=== PATIENT | male | born 1965 | race Caucasian/White ===

== ENCOUNTER 2016-08-23 11:16 | Inpatient (IN) | payer MEDICARE, MEDICAID ==
[2016-08-23] MEDS ORDERED: Charcoal ACTIVATED* 25 GM/120 ML BTL PO ONE (11:49)
--- NOTE | 2016-08-23 11:57 | ED ---
Ángel John Michael, scribed for Ximena Matos MD on 08/23/16 at 1147 . Psychiatric Complaint - HPI Summary HPI Summary: 50 y/o male comes to the ED by EMS after calling 911 stating that he took an overdose this morning. The pt reports to taking 7-8 pills of 80 mg Geodon all at one time [employer]> morning. The pt states he was trying to commit suicide, and he has a hx of suicide attempts by overdose. The pt denies hallucinations or delusions today. He also has a hx of self harm by burning and scratching. Pt initially states took pills at 1pm. After reminding pt was not 1pm yet, he stated "it must have been 11am" Expressed to pt was likely in the ambulance at 11am - pt states "well then I don't know when I took it." Pt denies cp, sob, abd pain. Denies nausea, vomiting. The pt was recently hospitalized at [facility] of 2 days on 08/14/16 for SI attempt. He denies smoking, drinking, or use of drugs. The PMHx is significant for schizophrenia, depression, and thyroid disease. - History Of Current Complaint Time Seen by Provider: 08/23/16 11:23 Hx Obtained From: Patient, Medical Records Onset/Duration: Gradual Onset Timing: Intermittent Episode Lasting Severity Initially: Severe Severity Currently: Moderate Character: Depressed Aggravating Factor(s): Nothing Alleviating Factor(s): Nothing Associated Signs And Symptoms: Positive: Negative - delusions. Negative: Hallucinating Related History: Positive For: Prior Psychiatric Issues Has Suicidal: Reports: Thoughts, With A Plan, Has Prior Attempt(s) - Allergies/Home Medications Allergies/Adverse Reactions: Allergies Allergy/AdvReac Type Severity Reaction Status Date / Time No Known Allergies Allergy Verified 07/22/16 17:04 PMH/Surg Hx/FS Hx/Imm Hx Endocrine/Hematology History: Reports: Hx Thyroid Disease - hypothyroid Denies: Hx Anticoagulant Therapy, Hx Diabetes, Hx Systemic Lupus Erythematosus Cardiovascular History: Reports: Hx Hypercholesterolemia, Other Cardiovascular Problems/Disorders - HYPERLIPIDEMIA Denies: Hx Congestive Heart Failure, Hx Hypertension, Hx Pacemaker/ICD Respiratory History: Reports: Hx Chronic Bronchitis Comment Only: Other Respiratory Problems/Disorders - Sarcoidosis GI History: Reports: Hx Gastroesophageal Reflux Disease, Hx Irritable Bowel, Hx Obstructive Bowel - Small bowel, Other GI Disorders - Ongoing abdominal discomfort, hyperlipidemia History: Reports: Hx Benign Prostatic Hyperplasia, Hx Kidney Stones, Hx Renal Disease - LEFT KIDNEY DECREASE IN FUNCTION, Other Problems/Disorders - HX OF CYST IN THE BLADDER Denies: Hx Dialysis Musculoskeletal History: Reports: Other Musculoskeletal History - Sarcoidosis Denies: Hx Rheumatoid Arthritis Sensory History: Reports: Hx Contacts or Glasses Denies: Hx Hearing Aid, Hx Hearing Problem Opthamlomology History: Reports: Hx Contacts or Glasses Neurological History: Reports: Hx Headaches, Hx Seizures, Other Neuro Impairments/Disorders - "light concussion" Psychiatric History: Reports: Hx Anxiety, Hx Depression, Hx Post Traumatic Stress Disorder, Hx Inpatient Treatment, Hx Community Mental Health Tx, Hx Schizophrenia, Hx Suicide Attempt, Hx of Violent Episodes Against Others, Hx Substance Abuse, Other Psychiatric Issues/Disorders Denies: Hx Eating Disorder, Hx Panic Disorder - Cancer History Hx Chemotherapy: No - Surgical History Surgery Procedure, Year, and Place: 2008 APPENDECTOMY, [facility] CYST REMOVED FROM BLADDER, [facility] CHOLECYSTECTOMY-12/2012 Hx Anesthesia Reactions: No - Immunization History Date of Tetanus Vaccine: Unknown Date of Influenza Vaccine: Fall 2013 Infectious Disease History: Denies: Hx Clostridium Difficile, Hx Hepatitis, Hx Human Immunodeficiency Virus (HIV), Hx of Known/Suspected MRSA, History Other Infectious Disease - Family History Known Family History: Positive: Cardiac Disease, Hypertension, Seizure Disorder - sister, Other - cancer - Social History Occupation: Disabled Lives: Alone Alcohol Use: None Alcohol Amount: stopped 4 years ago Hx Substance Use: No Substance Use Type: Reports: None Substance Use Comment - Amount & Last Used: pt states he has not used any drugs since 2011. Hx Tobacco Use: Yes Smoking Status (MU): Former Smoker Type: Cigarettes Length of Time of Smoking/Using Tobacco: 20YRS Have You Smoked in the Last Year: No Review of Systems Negative: Fever Eyes: Negative ENT: Negative Cardiovascular: Negative Negative: Chest Pain Respiratory: Negative Negative: Shortness Of Breath Gastrointestinal: Negative Negative: Abdominal Pain, Vomiting, Nausea Genitourinary: Negative Skin: Negative Neurological: Negative Negative: Weakness, Numbness Positive: Other - SI. negative delusions and hallucinations All Other Systems Reviewed And Are Negative: Yes Physical Exam Triage Information Reviewed: Yes Vital Signs On Initial Exam: Initial Vitals Temp Pulse Resp BP Pulse Ox 99.3 F 71 16 107/69 98 08/23/16 11:20 08/23/16 11:20 08/23/16 11:20 08/23/16 11:20 08/23/16 11:20 Vital Signs Reviewed: Yes Appearance: Positive: Well-Appearing, No Pain Distress, Well-Nourished Skin: Positive: Warm, Skin Color Reflects Adequate Perfusion, Dry Head/Face: Positive: Normal Head/Face Inspection Eyes: Positive: Normal ENT: Positive: Hearing grossly normal Neck: Positive: Supple, Nontender, No Lymphadenopathy Respiratory/Lung Sounds: Positive: Clear to Auscultation, Breath Sounds Present Cardiovascular: Positive: Normal, RRR. Negative: Murmur, Rub Abdomen Description: Positive: Nontender, No Organomegaly, Soft Bowel Sounds: Positive: Present Musculoskeletal: Positive: Normal Neurological: Positive: Normal, Sensory/Motor Intact, Alert, Oriented to Person Place, Time. Negative: Abnormal Gait, Slurred Speech Psychiatric: Positive: Normal AVPU Assessment: Alert - Luis Coma Scale Best Eye Response: 4 - Spontaneous Best Motor Response: 6 - Obeys Commands Best Verbal Response: 5 - Oriented Diagnostics - Vital Signs Vital Signs Temp Pulse Resp BP Pulse Ox 08/23/16 11:20 99.3 F 71 16 107/69 98 - Laboratory Result Diagrams: 08/23/16 12:15 08/23/16 12:15 Lab Statement: Any lab studies that have been ordered have been reviewed, and results considered in the medical decision making process. - EKG EK EKG Rhythm: Sinus Rhythm - 71 bpm EKG Interpretation: QTc 424. QRSD 91. no acute changes EKG EKG Rhythm: Sinus Rhythm - 71 bpm EKG Interpretation: QTc 424. QRSD 91. no acute changes Course/Dx - Differential Dx/Clinical Impression Provider Diagnosis: Depression, Ingestion of substance - Physician Notifications Discussed Care Of Patient With: PCC - recommend monitoring for nausea, somnulance; 6 hour monitor; charcoal 1g/kg. 12:30 - okay for mental health eval in ED Time Discussed With Above Provider: 11:40 Discharge - Discharge Plan Condition: Stable Disposition: OTHER Discharge Disposition Comment: signed out - MH consult pending 1500 The documentation as recorded by the Ángel farah Michael accurately reflects the service I personally performed and the decisions made by me, Ximena Matos MD.
[2016-08-23 12:18] LABS: Urine Bilirubin Negative (Negative); Urine Glucose Negative (Negative); Urine Nitrite Negative (Negative)
[2016-08-23 12:25] LABS: Hematocrit 43 % (42-52); Hemoglobin 14.5 g/dl (14.0-18.0); Mean Corpuscular HGB Conc 34 g/dl (31-36); Mean Corpuscular Hemoglobin 32 pg (27-31); Mean Corpuscular Volume 93 fL (80-94); Mean Platelet Volume 8 um3 (7.4-10.4); Red Blood Count 4.59 10^6/ul (4.0-5.4); Red Cell Distribution Width 13 % (10.5-15); White Blood Count 6.7 10^3/ul (3.5-10.8)
[2016-08-23 12:40] LABS: ALT 23 U/L (7-52); AST 17 U/L (13-39); Albumin 3.8 g/dL (3.2-5.2); Alkaline Phosphatase 55 U/L (34-104); Anion Gap -3 mmol/L (2-11); BUN/Creatinine Ratio 19.5 (8-20); Blood Urea Nitrogen 22 mg/dL (6-24); CO2 Carbon Dioxide 23 mmol/L (22-32); Calcium 9.4 mg/dL (8.6-10.3); Chloride 110 mmol/L (101-111); EGFR African American 87.6 (>60); EGFR Non-African American 68.1 (>60); Globulin 2.3 g/dL (2-4); Glucose 113 mg/dL (70-100); Sodium 130 mmol/L (133-145); Total Protein 6.1 g/dL (6.4-8.9)
[2016-08-23 12:44] LABS: Benzodiazepine Urine Screen None Detected (None Detect)
[2016-08-23 12:58] LABS: Acetaminophen < 15 mcg/mL; Alcohol < 10 mg/dL (<10); Salicylate < 2.50 mg/dL (<30)
[2016-08-23 13:06] LABS: TSH (Thyroid Stimulating Horm) 1.33 mcIU/mL (0.34-5.60)
[2016-08-23] MEDS ORDERED: Al Hydrox/Mg Hydrox/Simet LIQ* 30 ML UDC PO ONE (19:30)
[2016-08-23] MEDS ORDERED: Promethazine TAB* 25 MG PO PRN (21:55)
[2016-08-23] MEDS ORDERED: Zolpidem TAB* 5 MG PO ONE (21:59)
[2016-08-23] MEDS ORDERED: Topiramate TAB(*) 100 MG PO ONE (21:59)
[2016-08-23] MEDS ORDERED: cloNIDine TAB* 0.1 MG PO ONE (21:59)
[2016-08-23] MEDS ORDERED: Amitriptyline TAB* 10 MG PO ONE (21:59)
[2016-08-23] MEDS ORDERED: Ondansetron TAB* 4 MG PO PRN (22:10)
[2016-08-23] MEDS: Amitriptyline TAB* 10 MG PO SCH (22:22)
[2016-08-23] MEDS: cloNIDine TAB* 0.1 MG PO SCH (22:24)
--- NOTE | 2016-08-23 23:45 | ED ---
Edda John Claudia, scribed for Antolin Duhnam MD on 08/23/16 at 2345 . Progress - Progress Note Progress Note: Signed out at [address] Ximena Matos Pt continued to be stable the pt is still medically cleared. The pt is still awaiting MHE. The pt will be signed-out to Dr. Frederick at 24:00. - Consult/PCP Time Called: 19:20 Course/Dx - Diagnoses Provider Diagnoses: Depression, Ingestion of substance - Provider Notifications Discussed Care Of Patient With: PCC - recommend monitoring for nausea, somnulance; 6 hour monitor; charcoal 1g/kg. 12:30 - okay for mental health eval in ED Time Discussed With Above Provider: 11:40 The documentation as recorded by the Edda farah Claudia accurately reflects the service I personally performed and the decisions made by Roly bishop Walter, MD.
[2016-08-24] MEDS ORDERED: Acetaminophen TAB* 325 MG ONE (05:49)
[2016-08-24] MEDS: Levothyroxine TAB* 50 MCG TAB PO SCH (06:00)
[2016-08-24] MEDS: Cetirizine* 10 MG TAB PO SCH (07:14)
[2016-08-24] MEDS: Omeprazole CAP* 20 MG PO SCH ×2 (07:14→21:00)
[2016-08-24] MEDS: Tamsulosin CAP* 0.4 MG PO SCH (07:15)
[2016-08-24] MEDS: DULoxetine DR CAP* 30 MG CAP.DR PO SCH (07:15)
[2016-08-24] MEDS ORDERED: Al Hydrox/Mg Hydrox/Simet LIQ* 30 ML UDC PO ONE ×2 (09:19→12:16)
[2016-08-24] MEDS ORDERED: Al Hydrox/Mg Hydrox/Simet LIQ* 30 ML UDC ONE (09:22)
[2016-08-24] MEDS: Azelastine 0.15% NASAL(NF) 30 ML BTL BOTH NARES SCH ×2 (11:30→21:05)
[2016-08-24] MEDS: clonazePAM TAB(*) 0.5 MG PO PRN (13:46)
[2016-08-24] MEDS: Polyethylene Glycol 3350* 17 GM PACKET PO PRN (15:25)
--- NOTE | 2016-08-24 15:56 | PN ---
ED Flex Patient Progress Note Subjective: This is a 50 year-old male who is pending transfer to another psychiatric facility. Pt offers no complaints at this time and is resting comfortably watching a movie. Objective: Vitals: Most recent vital signs documented below. General NAD, Alert and oriented x3. Heart: rrr Lungs: CTA without rales, rhonchi, wheezing Laboratory: Current laboratory results documented below. Assessment: Stable awaiting transfer Plan: Pending psychiatric transfer. Vital Signs Temp Pulse Resp BP Pulse Ox 96.3 F 93 16 115/70 98 08/24/16 15:49 08/24/16 15:49 08/24/16 15:49 08/24/16 15:49 08/24/16 15:49 Lab Results - Entire Visit 08/23/16 08/23/16 08/23/16 12:15 12:15 12:00 WBC 6.7 RBC 4.59 Hgb 14.5 Hct 43 MCV 93 MCH 32 H MCHC 34 RDW 13 Plt Count 219 MPV 8 Neut % (Auto) 75.8 Lymph % (Auto) 14.0 L Bee % (Auto) 7.4 Eos % (Auto) 1.8 Baso % (Auto) 1.0 Absolute Neuts (auto) 5.1 Absolute Lymphs (auto) 0.9 L Absolute Monos (auto) 0.5 Absolute Eos (auto) 0.1 Absolute Basos (auto) 0.1 Absolute Nucleated RBC 0.01 Nucleated RBC % 0.1 Sodium 130 L Potassium 4.0 Chloride 110 Carbon Dioxide 23 Anion Gap -3 L BUN 22 Creatinine 1.13 Est GFR ( Amer) 87.6 Est GFR (Non-Af Amer) 68.1 BUN/Creatinine Ratio 19.5 Glucose 113 H Calcium 9.4 Total Bilirubin 0.40 AST 17 ALT 23 Alkaline Phosphatase 55 Total Protein 6.1 L Albumin 3.8 Globulin 2.3 Albumin/Globulin Ratio 1.7 TSH 1.33 Urine Color Urine Appearance Urine pH Ur Specific [place] Urine Protein Urine Ketones Urine Blood Urine Nitrate Urine Bilirubin Urine Urobilinogen Ur Leukocyte Esterase Urine Glucose Urine Ascorbic Acid Salicylates < 2.50 Urine Opiates Screen None detected Acetaminophen < 15 Ur Barbiturates Screen None detected Ur Phencyclidine Scrn None detected Ur Amphetamines Screen None detected U Benzodiazepines Scrn None detected Urine Cocaine Screen None detected U Cannabinoids Screen None detected Serum Alcohol < 10 08/23/16 12:00 WBC RBC Hgb Hct MCV MCH MCHC RDW Plt Count MPV Neut % (Auto) Lymph % (Auto) Bee % (Auto) Eos % (Auto) Baso % (Auto) Absolute Neuts (auto) Absolute Lymphs (auto) Absolute Monos (auto) Absolute Eos (auto) Absolute Basos (auto) Absolute Nucleated RBC Nucleated RBC % Sodium Potassium Chloride Carbon Dioxide Anion Gap BUN Creatinine Est GFR ( Amer) Est GFR (Non-Af Amer) BUN/Creatinine Ratio Glucose Calcium Total Bilirubin AST ALT Alkaline Phosphatase Total Protein Albumin Globulin Albumin/Globulin Ratio TSH Urine Color Yellow Urine Appearance Cloudy Urine pH 7.0 Ur Specific [place] 1.016 Urine Protein Negative Urine Ketones Negative Urine Blood Negative Urine Nitrate Negative Urine Bilirubin Negative Urine Urobilinogen Negative Ur Leukocyte Esterase Negative Urine Glucose Negative Urine Ascorbic Acid * H Salicylates Urine Opiates Screen Acetaminophen Ur Barbiturates Screen Ur Phencyclidine Scrn Ur Amphetamines Screen U Benzodiazepines Scrn Urine Cocaine Screen U Cannabinoids Screen Serum Alcohol
[2016-08-24] MEDS: Ziprasidone CAP* 80 MG PO SCH (20:59)
[2016-08-24] MEDS: Zolpidem TAB* 5 MG PO SCH (21:00)
[2016-08-24] MEDS: Amitriptyline TAB* 10 MG PO SCH (21:00)
[2016-08-24] MEDS: cloNIDine TAB* 0.1 MG PO SCH (21:00)
[2016-08-24] MEDS: Topiramate TAB(*) 100 MG PO SCH (21:02)
[2016-08-25] MEDS: Polyethylene Glycol 3350* 17 GM PACKET PO PRN (12:43)
[2016-08-25] MEDS: Ziprasidone CAP* 80 MG PO SCH (20:57)
[2016-08-25] MEDS: Omeprazole CAP* 20 MG PO SCH (20:58)
[2016-08-25] MEDS: Azelastine 0.15% NASAL(NF) 30 ML BTL BOTH NARES SCH (20:58)
[2016-08-25] MEDS: cloNIDine TAB* 0.1 MG PO SCH (20:58)
[2016-08-25] MEDS: Zolpidem TAB* 5 MG PO SCH (20:59)
[2016-08-25] MEDS: Topiramate TAB(*) 100 MG PO SCH (20:59)
[2016-08-25] MEDS ORDERED: Ziprasidone CAP* 80 MG ONE (21:00)
[2016-08-26] MEDS: Amitriptyline TAB* 10 MG PO SCH ×2 (01:00→20:38)
[2016-08-26] MEDS: Cetirizine* 10 MG TAB PO SCH ×2 (07:39→08:19)
[2016-08-26] MEDS: Tamsulosin CAP* 0.4 MG PO SCH ×2 (07:39→08:19)
[2016-08-26] MEDS: DULoxetine DR CAP* 30 MG CAP.DR PO SCH ×2 (07:39→08:19)
[2016-08-26] MEDS: Omeprazole CAP* 20 MG PO SCH ×3 (07:39→20:38)
[2016-08-26] MEDS: Azelastine 0.15% NASAL(NF) 30 ML BTL BOTH NARES SCH ×3 (07:39→20:51)
[2016-08-26] MEDS: Levothyroxine TAB* 50 MCG TAB PO SCH ×2 (07:39→11:28)
[2016-08-26] MEDS: Al Hydrox/Mg Hydrox/Simet LIQ* 30 ML UDC PO PRN ×2 (09:06→23:46)
[2016-08-26] MEDS: clonazePAM TAB(*) 0.5 MG PO PRN (09:19)
--- NOTE | 2016-08-26 10:30 | HP ---
HISTORY AND PHYSICAL: DATE OF ADMISSION: 08/25/16 IDENTIFYING DATA: Krzysztof Banegas is a 50-year-old mentally disabled, domiciled, unemployed male with a history of many psychiatric hospitalizations, trauma, personality disorder features, suicide attempts, self harm, posttraumatic stress disorder, atypical psychotic spectrum symptoms, and depression. He is admitted to psychiatric unit about 10 days after his last hospitalization having come to the hospital emergency room by ambulance with report of an overdose of suicidal features. HISTORY OF PRESENT ILLNESS: This is an update to the history and physical entered for Lyle's August 12 admission to our unit. Please see that report by Dr. Ndiaye for information on Krzysztof's more distant history. Krzysztof had 3-day stay in our hospital right before the New Year having presented with suicidal thoughts due to stomach pain. He reports doing okay until the last few days. He notes recent stressor of having been moved into the [employer] [facility] and no longer having access to his therapist, Krzysztof Mina. He said he had 2 or 3 days of rumination, increased flashbacks, increased nightmares, higher anxiety, and worse mood. He said he had suicidal thoughts and wishes and "for about a day" plan to overdose on his Geodon. He reported taking 6 or 7 extra tablets and said that he promptly called his mother and informed her what he was doing and also called 911 requesting help. He said he regretted the attempt and did not have ongoing lingering wishes. He does feel ambivalent about his life and being alive. He was hopeful to spend a couple of days in the hospital to recuperate. He denied other perceptual disturbances. Denied violent ideations. Denied use of alcohol or drugs and denied new medical diagnosis. He reported adherence with his medication regimen. MENTAL STATUS EXAMINATION: Somewhat disheveled later middle-aged male who is wearing hospital scrub clothing. He has slightly slow psychomotor activity. He is somewhat regressed in his relatedness, maintains distant eye contact. Speech is stressed and nonspontaneous. Mood is described as "okay." Affect is blandly euthymic, it is stable. Thought process is coherent, but impoverished thought content. Negative for current suicidal, homicidal or paranoid ideation. Sensorium is clear. He is alert and oriented x3. Insight and judgment is fair and impulse control is currently intact. UPDATED PHYSICAL ASSESSMENT: Vital Signs: Temperature is 97.5, blood pressure is 95/65, pulse is 65, respiratory rate is 16. ADMISSION LABORATORY STUDIES: CBC had MCH of 32, 14% lymphocytes, 0.9 monocytes. Comprehensive panel had a sodium of 130, negative 3 anion gap, glucose of 113, total protein is 6.1. Urinalysis had high ascorbic acid. Toxicology screen is negative for Tylenol, alcohol, or salicylates. Urine drug screen was negative. UPDATED REVIEW OF SYSTEMS: Negative for neurological symptoms, respiratory difficulty, chest pain, syncope. Reports heartburn. Denies other gastrointestinal distress or elimination symptoms, negative for any musculoskeletal problems or skin problems. PHYSICAL EXAMINATION: Krzysztof preferred not to have any examination. He is medically stable for psychiatric hospitalization. CLINICAL SUMMARY: A 50-year-old mentally disabled male with posttraumatic stress disorder, frequent symptom exacerbations, history of suicide attempts, personality disorder, self-harm, perceptual disturbances, and tenuous baseline functioning. He presents typically with overdose with suicidal features (of low medical and psychological seriousness) in the setting of a subacute pattern of hospitalizations and decompensations. He requires psychiatric hospitalization for immediate safety, stabilization, evaluation and treatment planning. ADMISSION DIAGNOSES: Adjustment disorder, posttraumatic stress disorder, depressive disorder, personalty disorder. TREATMENT PLAN: Admit to the psychiatric unit on a long-term basis. Code status is full. Safety checks every 15-minute intervals. Initiate comprehensive group, milieu, and individual psychotherapeutic support. Medication management: we will allow continuing the outpatient medications which will be: 1. Amitriptyline 20 mg at bedtime. 2. Azelastine 0.15% one spray to both nares b.i.d. 3. Cetirizine 10 mg a day. 4. Duloxetine 90 mg daily. 5. Synthroid 50 mcg daily. 6. Omeprazole 20 mg b.i.d. 7. Zofran 4 mg p.o. q. 6h p.r.n. nausea. 8. Polyethylene glycol 17 g daily p.r.n. constipation. 9. Promethazine 25 mg q. 2-8h. p.r.n. nausea. 10. Flomax 0.4 mg a day. 11. Topamax 100 mg at bedtime. 12. Ziprasidone 160 mg at bedtime. 13. Ambien 5 mg at bedtime. 14. Clonidine 0.3 mg at bedtime. 15. Clonazepam 0.5 mg b.i.d. p.r.n. anxiety. Estimated length of stay is three days. Discharge planning will involve coordination with appropriate aftercare. Target symptoms are parasuicidal behaviors, suicidal thoughts, elevated distress, and re-experiencing of higher trauma. The patient's strengths were his positive help-seeking behavior and longer term treatment alliances. [id number]/[facility] #: [id number] REBEKA
--- NOTE | 2016-08-26 13:47 | PN ---
MHU: Group Therapy Note - Service Type Service Type: 41030 Group Psychotherapy - Cognitive Behavioral Group Therapy ( CBT):Patient attended CBT programming this morning and presented with flat affect that did not vary with discussion. Although responsive to direct prompts to respond to questions, patient did not engage in spontaneous conversation.
[2016-08-26] MEDS: Topiramate TAB(*) 100 MG PO SCH (20:38)
[2016-08-26] MEDS: Ziprasidone CAP* 80 MG PO SCH (20:38)
[2016-08-26] MEDS: Zolpidem TAB* 5 MG PO SCH (20:38)
[2016-08-26] MEDS: cloNIDine TAB* 0.1 MG PO SCH (20:38)
[2016-08-27] MEDS: Al Hydrox/Mg Hydrox/Simet LIQ* 30 ML UDC PO PRN ×5 (02:56→22:02)
[2016-08-27] MEDS: Levothyroxine TAB* 50 MCG TAB PO SCH (06:14)
[2016-08-27 07:44] VITALS: BP 104/66
[2016-08-27] MEDS: Azelastine 0.15% NASAL(NF) 30 ML BTL BOTH NARES SCH ×2 (08:19→20:16)
[2016-08-27] MEDS: Tamsulosin CAP* 0.4 MG PO SCH (08:20)
[2016-08-27] MEDS: DULoxetine DR CAP* 30 MG CAP.DR PO SCH (08:20)
[2016-08-27] MEDS: Cetirizine* 10 MG TAB PO SCH (08:20)
[2016-08-27] MEDS: Omeprazole CAP* 20 MG PO SCH ×2 (08:20→20:15)
--- NOTE | 2016-08-27 10:54 | PN ---
Subjective - Subjective Service Type: 01202 Hosp care 15 min low complexity Subjective: Sonia reported feeling a little better, but noted fatigue and poor sleep quality. Said he does not feel recovered, and while safe currently, not ready to go home today. Objective - Appearance Appearance: Well Developed/Nourished Hygiene: Normal Grooming: Disheveled - Behavior Psychomotor Activities: Abnormal-Decreased - Attitude and Relatedness Attitude and Relatedness: Needy Eye Contact: Good - Speech Quality: Unpressured Latencies: Normal Quantity: Terse - Mood Patient's Decription of Mood: "Anxious" - Affect Observed Affect: Tense Affect Consistent with: Dysphoria - Thought Process Patient's Thought Process: Impoverished Thought Content: No Passive Wish, No Suicidal Planning, No Homicidal Ideation, No Paranoid Ideation - Sensorium Experiencing Hallucinations: No, Sensorium is Clear - Level of Consciousness Level of Consciousness: Alert - Impulse Control Impulse Control: Intact - Insight and Judgement Insight and Judgement: Poor Assessment - Assessment Merits Inpatient Hospitalization: For Stabilization, To Initiate Treatment, For Ongoing Evaluation, Consolidate Improvements, For Discharge Planning Inpatient DSM-IV Dx: Adjustment disorder, posttraumatic stress disorder, depressive disorder, personalty disorder. Clinical Impression: A 50-year-old mentally disabled male with posttraumatic stress disorder, frequent symptom exacerbations, history of suicide attempts, personality disorder, self-harm, perceptual disturbances, and tenuous baseline functioning. He presents typically with overdose with suicidal features (of low medical and psychological seriousness) in the setting of a subacute pattern of hospitalizations and decompensations. Stabilizing here. Continues with moderated distress, and subjective need for hospital care. Expect spontaneous recovery with the structure here, as seen previously. Aim for discharge in next 2 days. Medication management will continue the outpatient medications. Plan - Plan Treatment Plan: Name: SONIA MONDRAGON Birthdate: 1965 [id number] Continued Medication Management: Continue Outpt Medication Medications: Current Medications Al Hydrox/Mg Hydrox/Simethicone (Maalox Plus*) 30 ml PO Q2H PRN PRN Reason: HEARTBURN Last Admin: 08/27/16 02:56 Dose: 30 ml Amitriptyline HCl (Elavil Tab*) 20 mg PO BEDTIME TERRI Last Admin: 08/26/16 20:38 Dose: 20 mg Azelastine HCl (Astepro 0.15% Nasal (Nf)) 1 spray BOTH NARES BID TERRI Last Admin: 08/27/16 08:19 Dose: Not Given Cetirizine HCl (Zyrtec*) 10 mg PO DAILY [facility] Last Admin: 08/27/16 08:20 Dose: 10 mg Clonazepam (Klonopin Tab(*)) 0.5 mg PO BID PRN PRN Reason: ANXIETY Last Admin: 08/26/16 09:19 Dose: 0.5 mg Clonidine HCl (Catapres Tab*) 0.3 mg PO BEDTIME TERRI Last Admin: 08/26/16 20:38 Dose: 0.3 mg Duloxetine HCl (Cymbalta Cap*) 90 mg PO DAILY [facility] Last Admin: 08/27/16 08:20 Dose: 90 mg Levothyroxine Sodium (Synthroid Tab*) 50 mcg PO DAILY@0600 [facility] Last Admin: 08/27/16 06:14 Dose: 50 mcg Omeprazole (Prilosec Cap*) 20 mg PO BID [facility] Last Admin: 08/27/16 08:20 Dose: 20 mg Ondansetron HCl (Zofran Tab*) 4 mg PO Q6H PRN PRN Reason: NAUSEA Last Admin: 08/24/16 08:46 Dose: 4 mg Polyethylene Glycol/Electrolytes (Miralax*) 17 gm PO DAILY PRN PRN Reason: CONSTIPATION Last Admin: 08/25/16 12:43 Dose: 17 gm Promethazine HCl (Phenergan Tab*) 25 mg PO Q8H PRN PRN Reason: NAUSEA Tamsulosin HCl (Flomax Cap*) 0.4 mg PO DAILY [facility] Last Admin: 08/27/16 08:20 Dose: 0.4 mg Topiramate (Topamax(*)) 100 mg PO BEDTIME [facility] Last Admin: 08/26/16 20:38 Dose: 100 mg Ziprasidone (Geodon Cap*) 160 mg PO BEDTIME [facility] Last Admin: 08/26/16 20:38 Dose: 160 mg Zolpidem Tartrate (Ambien Tab*) 5 mg PO BEDTIME [facility] Last Admin: 08/26/16 20:38 Dose: 5 mg - Discharge Plan Discharge Plan: Outpatient Follow Up Outpatient Program: [facility]
--- NOTE | 2016-08-27 11:53 | PN ---
MHU: Group Therapy Note - Service Type Service Type: [id number] Group Psychotherapy - Cognitive Behavioral Group Therapy ( CBT):Patient attended CBT programming this morning and presented with flat affect that did not vary with discussion. Although responsive to direct prompts to respond to questions, patient did not engage in spontaneous conversation.
[2016-08-27] MEDS: Amitriptyline TAB* 10 MG PO SCH (20:12)
[2016-08-27] MEDS: cloNIDine TAB* 0.1 MG PO SCH (20:13)
[2016-08-27] MEDS: Ziprasidone CAP* 80 MG PO SCH (20:14)
[2016-08-27] MEDS: Zolpidem TAB* 5 MG PO SCH (20:15)
[2016-08-27] MEDS: Topiramate TAB(*) 100 MG PO SCH (20:15)
[2016-08-28] MEDS: Levothyroxine TAB* 50 MCG TAB PO SCH (06:05)
[2016-08-28] MEDS: Tamsulosin CAP* 0.4 MG PO SCH (08:20)
[2016-08-28] MEDS: Omeprazole CAP* 20 MG PO SCH (08:20)
[2016-08-28] MEDS: DULoxetine DR CAP* 30 MG CAP.DR PO SCH (08:20)
[2016-08-28] MEDS: Cetirizine* 10 MG TAB PO SCH (08:20)
[2016-08-28] MEDS: Azelastine 0.15% NASAL(NF) 30 ML BTL BOTH NARES SCH (08:22)
[2016-08-28] MEDS: Al Hydrox/Mg Hydrox/Simet LIQ* 30 ML UDC PO PRN (10:27)
--- NOTE | 2016-08-28 11:44 | DS ---
Subjective - Subjective Service Types: 62252 [facility] Day Mgmt simple under 30 min Discharge Date: 08/28/16 Subjective: Krzysztof reported satisfaction with progress and was interested in going home. He denied current distress, setbacks, or wishes. He denied bothersome mood symptoms or anxiety. We reviewed his course, medication, and aftercare plan. Objective - Appearance Appearance: Well Developed/Nourished Hygiene: Normal Grooming: Fairly Well Kept - Behavior Psychomotor Activities: Normal - Attitude and Relatedness Attitude and Relatedness: Cooperative Eye Contact: Good - Speech Quality: Unpressured Latencies: Normal Quantity: Terse - Mood Patient's Decription of Mood: "Good" - Affect Observed Affect: Non-labile Affect Consistent with: Euthymia - Thought Process Patient's Thought Process: Coherent, Impoverished Thought Content: No Passive Wish, No Suicidal Planning, No Homicidal Ideation, No Paranoid Ideation - Sensorium Experiencing Hallucinations: No, Sensorium is Clear - Level of Consciousness Level of Consciousness: Alert - Impulse Control Impulse Control: Intact - Insight and Judgement Insight and Judgement: Fair Treatment Course & Assessment Clinical Course & Impression: A 50-year-old mentally disabled male with posttraumatic stress disorder, frequent symptom exacerbations, history of suicide attempts, personality disorder, self-harm, perceptual disturbances, and tenuous baseline functioning. He presents typically with overdose with suicidal features (of low medical and psychological seriousness) in the setting of a subacute pattern of hospitalizations and decompensations. 08/28/16 Clear for release. Krzysztof stabilized here in the usual fashion attaining major spontaneous clinical improvement. He had progressively less distress, and appears back to baseline. Medication management continued the outpatient medications. Risk concern centered on suicidal behavior and ongoing risk. Krzysztof is at chronic elevated risk for suicide based on his condition and history. Acute risk is reduced by our intervention and assessed as low currently based on his low symptom burden, benign ideation and behavior, and correction of acute impairing factors. Clear for Discharge: Adequate Clinical Respons, Acceptable Safety Profile, Low Utility of Inpt Care Inpatient DSM-IV Dx: Adjustment disorder, posttraumatic stress disorder, depressive disorder, personalty disorder. Discharge Planning - Discharge Planning Discharge Plan: Outpatient Follow Up Outpatient Program: [facility] Recommendations for Continuing Care: Medication Management, Psychotherapy, Routine Metabolic Monitoring Medications: Current Medications Al Hydrox/Mg Hydrox/Simethicone (Maalox Plus*) 30 ml PO Q2H PRN PRN Reason: HEARTBURN Last Admin: 08/28/16 10:27 Dose: 30 ml Amitriptyline HCl (Elavil Tab*) 20 mg PO BEDTIME [facility] Last Admin: 08/27/16 20:12 Dose: 20 mg Azelastine HCl (Astepro 0.15% Nasal (Nf)) 1 spray BOTH NARES BID [facility] Last Admin: 08/28/16 08:22 Dose: Not Given Cetirizine HCl (Zyrtec*) 10 mg PO DAILY [facility] Last Admin: 08/28/16 08:20 Dose: 10 mg Clonazepam (Klonopin Tab(*)) 0.5 mg PO BID PRN PRN Reason: ANXIETY Last Admin: 08/26/16 09:19 Dose: 0.5 mg Clonidine HCl (Catapres Tab*) 0.3 mg PO BEDTIME [facility] Last Admin: 08/27/16 20:13 Dose: 0.3 mg Duloxetine HCl (Cymbalta Cap*) 90 mg PO DAILY [facility] Last Admin: 08/28/16 08:20 Dose: 90 mg Levothyroxine Sodium (Synthroid Tab*) 50 mcg PO DAILY@0600 [facility] Last Admin: 08/28/16 06:05 Dose: 50 mcg Omeprazole (Prilosec Cap*) 20 mg PO BID [facility] Last Admin: 08/28/16 08:20 Dose: 20 mg Ondansetron HCl (Zofran Tab*) 4 mg PO Q6H PRN PRN Reason: NAUSEA Last Admin: 08/24/16 08:46 Dose: 4 mg Polyethylene Glycol/Electrolytes (Miralax*) 17 gm PO DAILY PRN PRN Reason: CONSTIPATION Last Admin: 08/25/16 12:43 Dose: 17 gm Promethazine HCl (Phenergan Tab*) 25 mg PO Q8H PRN PRN Reason: NAUSEA Tamsulosin HCl (Flomax Cap*) 0.4 mg PO DAILY [facility] Last Admin: 08/28/16 08:20 Dose: 0.4 mg Topiramate (Topamax(*)) 100 mg PO BEDTIME [facility] Last Admin: 08/27/16 20:15 Dose: 100 mg Ziprasidone (Geodon Cap*) 160 mg PO BEDTIME [facility] Last Admin: 08/27/16 20:14 Dose: 160 mg Zolpidem Tartrate (Ambien Tab*) 5 mg PO BEDTIME [facility] Last Admin: 08/27/16 20:15 Dose: 5 mg Discharge Planning: Prescriptions provided for discharge [] Yes [x] No Follow up care details as per social work arrangements. Patient response to discharge plan: [x] eager for discharge [] agreeable with discharge plan [] ambivalent about discharge [] disagrees with discharge today
--- NOTE | 2016-08-28 11:54 | PN ---
[facility]: Group Therapy Note - Service Type Service Type: [id number] Group Psychotherapy - Cognitive Behavioral Group Therapy ( CBT):Patient was attentive and participatory in CBT programming this morning, and remained in good behavioral control. Patient expressed positive insights regarding relevant treatment interventions and goals.
== END 2016-08-28 14:30 | disposition home or self-care (01) | DRG 881 ==
LOC: ED 11:16 → BSU 08-25 20:27
PROVIDERS: ADMIT Psychiatry & Neurology Psychiatry; ATTEND Psychiatry & Neurology Psychiatry
DX: F43.21 Adjustment disorder with depressed mood (principal); R45.851 Suicidal ideations; F43.10 Post-traumatic stress disorder, unspecified; E03.9 Hypothyroidism, unspecified; E78.5 Hyperlipidemia, unspecified; K21.9 Gastro-esophageal reflux disease without esophagitis; K58.9 Irritable bowel syndrome, unspecified; F60.9 Personality disorder, unspecified; Z79.1 Long term (current) use of non-steroidal anti-inflammatories (NSAID); Z79.899 Other long term (current) drug therapy
CPT/HCPCS: 36415; 80053; 80307; 80320; 80329; 81003; 82570; 84110; 84120; 84443; 85025; 90853; 99222; 99231; 99238; A9270-GY; G0480

== ENCOUNTER 2016-09-15 14:42 | Inpatient (IN) | payer MEDICARE, MEDICAID ==
[2016-09-15 15:30] LABS: Hematocrit 46 % (42-52); Hemoglobin 15.4 g/dl (14.0-18.0); Mean Corpuscular HGB Conc 34 g/dl (31-36); Mean Corpuscular Hemoglobin 31 pg (27-31); Mean Corpuscular Volume 93 fL (80-94); Mean Platelet Volume 8 um3 (7.4-10.4); Red Blood Count 4.91 10^6/ul (4.0-5.4); Red Cell Distribution Width 13 % (10.5-15); White Blood Count 7.8 10^3/ul (3.5-10.8)
[2016-09-15 15:33] LABS: Urine Bilirubin Negative (Negative); Urine Glucose Negative (Negative); Urine Nitrite Negative (Negative)
[2016-09-15 15:45] LABS: ALT 18 U/L (7-52); AST 17 U/L (13-39); Albumin 4.7 g/dL (3.2-5.2); Alkaline Phosphatase 70 U/L (34-104); Anion Gap 7 mmol/L (2-11); BUN/Creatinine Ratio 14.9 (8-20); Blood Urea Nitrogen 18 mg/dL (6-24); CO2 Carbon Dioxide 22 mmol/L (22-32); Calcium 9.5 mg/dL (8.6-10.3); Chloride 106 mmol/L (101-111); Globulin 2.8 g/dL (2-4); Glucose 92 mg/dL (70-100); Potassium 3.8 mmol/L (3.5-5.0); Sodium 135 mmol/L (133-145); Total Protein 7.5 g/dL (6.4-8.9)
[2016-09-15] MEDS ORDERED: Ondansetron ODT TAB* 4 MG PO ONE (15:45)
[2016-09-15] MEDS ORDERED: Al Hydrox/Mg Hydrox/Simet LIQ* 30 ML UDC PO ONE ×2 (15:45→18:39)
[2016-09-15 15:54] LABS: Benzodiazepine Urine Screen None Detected (None Detect)
[2016-09-15] MEDS: Lidocaine 2% VISCOUS* 15 ML UDC PO ONE (16:05)
[2016-09-15 16:25] LABS: Acetaminophen < 15 mcg/mL; Alcohol < 10 mg/dL (<10); Salicylate < 2.50 mg/dL (<30)
[2016-09-15 16:35] LABS: TSH (Thyroid Stimulating Horm) 0.92 mcIU/mL (0.34-5.60)
[2016-09-15] MEDS ORDERED: Lidocaine 2% VISCOUS* 15 ML UDC PO ONE (18:39)
[2016-09-15] MEDS ORDERED: Ondansetron ODT TAB* 4 MG ONE (18:40)
[2016-09-15] MEDS ORDERED: Lidocaine 2% VISCOUS* 15 ML UDC ONE (18:41)
[2016-09-15] MEDS ORDERED: Al Hydrox/Mg Hydrox/Simet LIQ* 30 ML UDC ONE (18:41)
[2016-09-15] MEDS: Ondansetron ODT TAB* 4 MG PO ONE (18:55)
--- NOTE | 2016-09-15 20:28 | ED ---
Ángel John Michael, scribed for Pierre Benito MD on 09/15/16 at 1528 . Altered Mental Status - HPI Summary HPI Summary: 50 y/o male was BIBA as a 941 presenting with AMS. The pt reports that he feels depressed and suicidal that started today. He also c/o diffuse abd pain and nause. The pt denies dysuria. The PMHx is significant for depression. - History Of Current Complaint Chief Complaint: EDMentalHealth Stated Complaint: 941 Time Seen by Provider: 09/15/16 15:26 Hx Obtained From: Patient, EMS, Medical Records Onset/Duration: Still Present Timing: Intermittent, Lasting Hours Severity Initially: Mild Severity Currently: Mild Aggravating Factor(s): Unknown Associated Signs And Symptoms: Positive: Negative - dysuria, Nausea - abd pain, Recently Depressed Has Suicidal: Thoughts - Allergies/Home Medications Allergies/Adverse Reactions: Allergies Allergy/AdvReac Type Severity Reaction Status Date / Time No Known Allergies Allergy Verified 08/26/16 17:23 PMH/Surg Hx/FS Hx/Imm Hx Endocrine/Hematology History: Reports: Hx Thyroid Disease - hypothyroid, Hx Anemia Denies: Hx Anticoagulant Therapy, Hx Diabetes, Hx Systemic Lupus Erythematosus Cardiovascular History: Reports: Hx Hypercholesterolemia, Other Cardiovascular Problems/Disorders - HYPERLIPIDEMIA Denies: Hx Congestive Heart Failure, Hx Hypertension, Hx Pacemaker/ICD Respiratory History: Reports: Hx Chronic Bronchitis Comment Only: Other Respiratory Problems/Disorders - Sarcoidosis GI History: Reports: Hx Gastroesophageal Reflux Disease, Hx Irritable Bowel, Hx Obstructive Bowel - Small bowel, Other GI Disorders - Ongoing abdominal discomfort, hyperlipidemia History: Reports: Hx Benign Prostatic Hyperplasia, Hx Kidney Stones, Hx Renal Disease - LEFT KIDNEY DECREASE IN FUNCTION, Other Problems/Disorders - HX OF CYST IN THE BLADDER Denies: Hx Dialysis Musculoskeletal History: Reports: Other Musculoskeletal History - Sarcoidosis Denies: Hx Rheumatoid Arthritis Sensory History: Reports: Hx Contacts or Glasses Denies: Hx Hearing Aid, Hx Hearing Problem Opthamlomology History: Reports: Hx Contacts or Glasses Neurological History: Reports: Hx Headaches, Hx Seizures, Other Neuro Impairments/Disorders - "light concussion" Psychiatric History: Reports: Hx Anxiety, Hx Depression, Hx Post Traumatic Stress Disorder, Hx Inpatient Treatment, Hx Community Mental Health Tx, Hx Schizophrenia, Hx Suicide Attempt, Hx of Violent Episodes Against Others, Hx Substance Abuse, Other Psychiatric Issues/Disorders Denies: Hx Eating Disorder, Hx Panic Disorder - Cancer History Hx Chemotherapy: No - Surgical History Surgery Procedure, Year, and Place: 2008 APPENDECTOMY, [facility] [place] 1989' CYST REMOVED FROM BLADDER, [facility] [place] CHOLECYSTECTOMY-12/2012 Hx Anesthesia Reactions: No - Immunization History Date of Tetanus Vaccine: Unknown Date of Influenza Vaccine: Fall 2013 Infectious Disease History: Denies: Hx Clostridium Difficile, Hx Hepatitis, Hx Human Immunodeficiency Virus (HIV), Hx of Known/Suspected MRSA, History Other Infectious Disease - Family History Known Family History: Positive: Cardiac Disease, Hypertension, Seizure Disorder - sister, Other - cancer - Social History Occupation: Disabled Lives: Alone Alcohol Use: None Alcohol Amount: stopped 4 years ago Hx Substance Use: No Substance Use Type: Reports: None Substance Use Comment - Amount & Last Used: pt states he has not used any drugs since 2011. Hx Tobacco Use: Yes Smoking Status (MU): Former Smoker Type: Cigarettes Length of Time of Smoking/Using Tobacco: 20YRS Have You Smoked in the Last Year: No Review of Systems Negative: Fever Positive: Abdominal Pain, Nausea Positive: Depressed, Other - SI thoughts All Other Systems Reviewed And Are Negative: Yes Physical Exam Triage Information Reviewed: Yes Vital Signs On Initial Exam: Initial Vitals Temp Pulse Resp BP Pulse Ox 98 F 81 16 119/78 96 09/15/16 15:15 09/15/16 15:15 09/15/16 15:15 09/15/16 15:15 09/15/16 15:15 Vital Signs Reviewed: Yes Appearance: Positive: Well-Appearing, No Pain Distress Skin: Positive: Warm, Skin Color Reflects Adequate Perfusion, Dry Head/Face: Positive: Normal Head/Face Inspection Eyes: Positive: EOMI, YANIRA ENT: Positive: Normal ENT inspection Neck: Positive: Supple, Nontender Respiratory/Lung Sounds: Positive: Clear to Auscultation, Breath Sounds Present Cardiovascular: Positive: RRR Abdomen Description: Positive: Nontender, Soft Bowel Sounds: Positive: Present Musculoskeletal: Positive: Normal, Strength/ROM Intact Neurological: Positive: Normal, Sensory/Motor Intact, Alert, Oriented to Person Place, Time Psychiatric: Positive: Affect/Mood Appropriate Diagnostics - Vital Signs Vital Signs Temp Pulse Resp BP Pulse Ox 09/15/16 16:49 98.0 F 86 16 125/77 96 09/15/16 15:15 98 F 81 16 119/78 96 - Laboratory Lab Results: Lab Results 09/15/16 09/15/16 09/15/16 Range/Units 15:20 15:20 15:20 WBC 7.8 (3.5-10.8) 10^3/ul RBC 4.91 (4.0-5.4) 10^6/ul Hgb 15.4 (14.0-18.0) g/dl Hct 46 (42-52) % MCV 93 (80-94) fL MCH 31 (27-31) pg MCHC 34 (31-36) g/dl RDW 13 (10.5-15) % Plt Count 209 (150-450) 10^3/ul MPV 8 (7.4-10.4) um3 Neut % (Auto) 74.6 (38-83) % Lymph % (Auto) 15.2 L (25-47) % [place] % (Auto) 7.9 (1-9) % Eos % (Auto) 1.4 (0-6) % Baso % (Auto) 0.9 (0-2) % Absolute Neuts (auto) 5.8 (1.5-7.7) 10^3/ul Absolute Lymphs (auto) 1.2 (1.0-4.8) 10^3/ul Absolute Monos (auto) 0.6 (0-0.8) 10^3/ul Absolute Eos (auto) 0.1 (0-0.6) 10^3/ul Absolute Basos (auto) 0.1 (0-0.2) 10^3/ul Absolute Nucleated RBC 0 10^3/ul Nucleated RBC % 0 Sodium 135 (133-145) mmol/L Potassium 3.8 (3.5-5.0) mmol/L Chloride 106 (101-111) mmol/L Carbon Dioxide 22 (22-32) mmol/L Anion Gap 7 (2-11) mmol/L BUN 18 (6-24) mg/dL Creatinine 1.21 H (0.67-1.17) mg/dL Est GFR ( Amer) 81.0 (>60) Est GFR (Non-Af Amer) 63.0 (>60) BUN/Creatinine Ratio 14.9 (8-20) Glucose 92 (70-100) mg/dL Calcium 9.5 (8.6-10.3) mg/dL Total Bilirubin 0.30 (0.2-1.0) mg/dL AST 17 (13-39) U/L ALT 18 (7-52) U/L Alkaline Phosphatase 70 (34-104) U/L Total Protein 7.5 (6.4-8.9) g/dL Albumin 4.7 (3.2-5.2) g/dL Globulin 2.8 (2-4) g/dL Albumin/Globulin Ratio 1.7 (1-3) TSH 0.92 (0.34-5.60) mcIU/mL Urine Color Yellow Urine Appearance Clear Urine pH 7.0 (5-9) Ur Specific [place] 1.016 (1.010-1.030) Urine Protein Negative (Negative) Urine Ketones Negative (Negative) Urine Blood Negative (Negative) Urine Nitrate Negative (Negative) Urine Bilirubin Negative (Negative) Urine Urobilinogen Negative (Negative) Ur Leukocyte Esterase Negative (Negative) Urine Glucose Negative (Negative) Urine Ascorbic Acid * H (Negative) Salicylates < 2.50 (<30) mg/dL Urine Opiates Screen (None Detect) Acetaminophen < 15 mcg/mL Ur Barbiturates Screen (None Detect) Ur Phencyclidine Scrn (None Detect) Ur Amphetamines Screen (None Detect) U Benzodiazepines Scrn (None Detect) Urine Cocaine Screen (None Detect) U Cannabinoids Screen (None Detect) Serum Alcohol < 10 (<10) mg/dL 09/15/16 Range/Units 15:20 WBC (3.5-10.8) 10^3/ul RBC (4.0-5.4) 10^6/ul Hgb (14.0-18.0) g/dl Hct (42-52) % MCV (80-94) fL MCH (27-31) pg MCHC (31-36) g/dl RDW (10.5-15) % Plt Count (150-450) 10^3/ul MPV (7.4-10.4) um3 Neut % (Auto) (38-83) % Lymph % (Auto) (25-47) % [place] % (Auto) (1-9) % Eos % (Auto) (0-6) % Baso % (Auto) (0-2) % Absolute Neuts (auto) (1.5-7.7) 10^3/ul Absolute Lymphs (auto) (1.0-4.8) 10^3/ul Absolute Monos (auto) (0-0.8) 10^3/ul Absolute Eos (auto) (0-0.6) 10^3/ul Absolute Basos (auto) (0-0.2) 10^3/ul Absolute Nucleated RBC 10^3/ul Nucleated RBC % Sodium (133-145) mmol/L Potassium (3.5-5.0) mmol/L Chloride (101-111) mmol/L Carbon Dioxide (22-32) mmol/L Anion Gap (2-11) mmol/L BUN (6-24) mg/dL Creatinine (0.67-1.17) mg/dL Est GFR ( Amer) (>60) Est GFR (Non-Af Amer) (>60) BUN/Creatinine Ratio (8-20) Glucose (70-100) mg/dL Calcium (8.6-10.3) mg/dL Total Bilirubin (0.2-1.0) mg/dL AST (13-39) U/L ALT (7-52) U/L Alkaline Phosphatase (34-104) U/L Total Protein (6.4-8.9) g/dL Albumin (3.2-5.2) g/dL Globulin (2-4) g/dL Albumin/Globulin Ratio (1-3) TSH (0.34-5.60) mcIU/mL Urine Color Urine Appearance Urine pH (5-9) Ur Specific [place] (1.010-1.030) Urine Protein (Negative) Urine Ketones (Negative) Urine Blood (Negative) Urine Nitrate (Negative) Urine Bilirubin (Negative) Urine Urobilinogen (Negative) Ur Leukocyte Esterase (Negative) Urine Glucose (Negative) Urine Ascorbic Acid (Negative) Salicylates (<30) mg/dL Urine Opiates Screen None detected (None Detect) Acetaminophen mcg/mL Ur Barbiturates Screen Presumptive positive H (None Detect) Ur Phencyclidine Scrn None detected (None Detect) Ur Amphetamines Screen None detected (None Detect) U Benzodiazepines Scrn None detected (None Detect) Urine Cocaine Screen None detected (None Detect) U Cannabinoids Screen None detected (None Detect) Serum Alcohol (<10) mg/dL Result Diagrams: 09/15/16 15:20 09/15/16 15:20 Lab Statement: Any lab studies that have been ordered have been reviewed, and results considered in the medical decision making process. Altered Mental Statu Course/Dx - Course Course Of Treatment: The patient was medically cleared for MHE at 1625. Assessment/Plan: ADMIT TO MHU WHEN BED AVAILABLE OR TRANSFER, STABLE. - Diagnoses Discharge Diagnoses: Depression Discharge - Discharge Plan Condition: Stable Disposition: PSYCHIATRIC FACILITY-[facility] [place] Referrals: Tran Clayton MD [Primary Care Provider] - The documentation as recorded by the Ángel farah Michael accurately reflects the service I personally performed and the decisions made by , Pierre Benito MD.
[2016-09-15] MEDS ORDERED: Omeprazole CAP* 20 MG PO ONE (20:56)
[2016-09-15] MEDS ORDERED: Topiramate TAB(*) 100 MG PO ONE (20:57)
[2016-09-15] MEDS ORDERED: cloNIDine TAB* 0.1 MG PO ONE (20:57)
[2016-09-15] MEDS ORDERED: Ziprasidone CAP* 80 MG PO ONE (20:58)
[2016-09-15] MEDS ORDERED: Zolpidem TAB* 5 MG PO ONE (20:59)
[2016-09-16 10:12] LABS: Syphilis Index < 0.1 Index
[2016-09-16] MEDS ORDERED: DULoxetine DR CAP* 30 MG CAP.DR PO ONE (10:12)
[2016-09-16] MEDS ORDERED: Ziprasidone CAP* 80 MG PO ONE (10:13)
[2016-09-16] MEDS ORDERED: Tamsulosin CAP* 0.4 MG PO ONE (10:13)
[2016-09-16] MEDS ORDERED: Levothyroxine TAB* 25 MCG TAB PO ONE (10:16)
[2016-09-16] MEDS ORDERED: Topiramate TAB(*) 100 MG PO ONE (10:16)
[2016-09-16] MEDS ORDERED: LoraTADine TAB(NF) 10 MG TAB (AUTOSUB to CETIRIZINE) PO ONE (10:17)
[2016-09-16] MEDS: clonazePAM TAB(*) 0.5 MG PO SCH ×2 (11:52→20:43)
[2016-09-16] MEDS: Omeprazole CAP* 20 MG PO SCH ×2 (11:52→21:30)
[2016-09-16] MEDS ORDERED: Al Hydrox/Mg Hydrox/Simet LIQ* 30 ML UDC PO ONE (15:22)
[2016-09-16] MEDS ORDERED: Lidocaine 2% VISCOUS* 15 ML UDC PO ONE (15:22)
[2016-09-16] MEDS ORDERED: Ondansetron ODT TAB* 4 MG PO ONE (15:23)
--- NOTE | 2016-09-16 15:26 | PN ---
ED Flex Patient Progress Note Subjective: This is a 50 year-old M who is pending admission to [facility] secondary to suicidal ideations. Pt offers compliant of generalized abdominal pain. He often has this compliant and says that is resolves with a GI cocktail so he is requesting one at this time. He denies any vomiting or diarrhea. Do not suspect infectious process as this is the typical abdominal pain he complains of and has had a full workup in the past and labs were normal yesterday. Objective: Vitals: Most recent vital signs documented below. General NAD, Alert and oriented x3. Heart: rrr at 70 bpm Lungs: CTA or with rales, rhonchi, wheezing Abd: nontender, soft, normoactive bowel sounds Laboratory: Current laboratory results documented below. Assessment: suicidal ideations Plan: Pending psychiatric to admit will follow up daily until admitted. Condition: stable Disposition: admitted Vital Signs Temp Pulse Resp BP Pulse Ox 98.6 F 78 16 107/70 96 09/16/16 15:24 09/16/16 15:24 09/16/16 15:24 09/16/16 15:24 09/16/16 15:24 Lab Results - Entire Visit 09/15/16 09/15/16 09/15/16 15:20 15:20 15:20 WBC RBC Hgb Hct MCV MCH MCHC RDW Plt Count MPV Neut % (Auto) Lymph % (Auto) [place] % (Auto) Eos % (Auto) Baso % (Auto) Absolute Neuts (auto) Absolute Lymphs (auto) Absolute Monos (auto) Absolute Eos (auto) Absolute Basos (auto) Absolute Nucleated RBC Nucleated RBC % Sodium 135 Potassium 3.8 Chloride 106 Carbon Dioxide 22 Anion Gap 7 BUN 18 Creatinine 1.21 H Est GFR ( Amer) 81.0 Est GFR (Non-Af Amer) 63.0 BUN/Creatinine Ratio 14.9 Glucose 92 Calcium 9.5 Total Bilirubin 0.30 AST 17 ALT 18 Alkaline Phosphatase 70 Total Protein 7.5 Albumin 4.7 Globulin 2.8 Albumin/Globulin Ratio 1.7 TSH 0.92 Urine Color Urine Appearance Urine pH Ur Specific [place] Urine Protein Urine Ketones Urine Blood Urine Nitrate Urine Bilirubin Urine Urobilinogen Ur Leukocyte Esterase Urine Glucose Urine Ascorbic Acid Salicylates < 2.50 Urine Opiates Screen None detected Acetaminophen < 15 Ur Barbiturates Screen Presumptive positive H Ur Phencyclidine Scrn None detected Ur Amphetamines Screen None detected U Benzodiazepines Scrn None detected Urine Cocaine Screen None detected U Cannabinoids Screen None detected Serum Alcohol < 10 Syphilis IgG Antibody Nonreactive 09/15/16 09/15/16 15:20 15:20 WBC 7.8 RBC 4.91 Hgb 15.4 Hct 46 MCV 93 MCH 31 MCHC 34 RDW 13 Plt Count 209 MPV 8 Neut % (Auto) 74.6 Lymph % (Auto) 15.2 L [place] % (Auto) 7.9 Eos % (Auto) 1.4 Baso % (Auto) 0.9 Absolute Neuts (auto) 5.8 Absolute Lymphs (auto) 1.2 Absolute Monos (auto) 0.6 Absolute Eos (auto) 0.1 Absolute Basos (auto) 0.1 Absolute Nucleated RBC 0 Nucleated RBC % 0 Sodium Potassium Chloride Carbon Dioxide Anion Gap BUN Creatinine Est GFR ( Amer) Est GFR (Non-Af Amer) BUN/Creatinine Ratio Glucose Calcium Total Bilirubin AST ALT Alkaline Phosphatase Total Protein Albumin Globulin Albumin/Globulin Ratio TSH Urine Color Yellow Urine Appearance Clear Urine pH 7.0 Ur Specific [place] 1.016 Urine Protein Negative Urine Ketones Negative Urine Blood Negative Urine Nitrate Negative Urine Bilirubin Negative Urine Urobilinogen Negative Ur Leukocyte Esterase Negative Urine Glucose Negative Urine Ascorbic Acid * H Salicylates Urine Opiates Screen Acetaminophen Ur Barbiturates Screen Ur Phencyclidine Scrn Ur Amphetamines Screen U Benzodiazepines Scrn Urine Cocaine Screen U Cannabinoids Screen Serum Alcohol Syphilis IgG Antibody
[2016-09-16] MEDS: Lidocaine 2% VISCOUS* 15 ML UDC PO ONE (15:32)
[2016-09-16] MEDS: Ondansetron ODT TAB* 4 MG PO ONE (15:34)
[2016-09-16] MEDS: Al Hydrox/Mg Hydrox/Simet LIQ* 30 ML UDC PO PRN (17:42)
[2016-09-16] MEDS: cloNIDine TAB* 0.1 MG PO SCH (20:42)
[2016-09-16] MEDS: Topiramate TAB(*) 100 MG PO SCH (20:43)
[2016-09-16] MEDS: Zolpidem TAB* 5 MG PO PRN (20:43)
[2016-09-17] MEDS: Al Hydrox/Mg Hydrox/Simet LIQ* 30 ML UDC PO PRN ×2 (03:51→18:26)
[2016-09-17] MEDS: Levothyroxine TAB* 50 MCG TAB PO SCH (05:51)
[2016-09-17] MEDS: Acetaminophen TAB* 325 MG PO PRN (06:01)
[2016-09-17] MEDS: Ziprasidone CAP* 80 MG PO SCH (08:13)
[2016-09-17] MEDS: DULoxetine DR CAP* 30 MG CAP.DR PO SCH (08:14)
[2016-09-17] MEDS: Cetirizine* 10 MG TAB PO SCH (08:14)
[2016-09-17] MEDS: Tamsulosin CAP* 0.4 MG PO SCH (08:14)
[2016-09-17] MEDS: Vitamin THERAPEUTIC TAB PO SCH (08:14)
[2016-09-17] MEDS: Omeprazole CAP* 20 MG PO SCH ×2 (08:15→20:28)
[2016-09-17] MEDS: clonazePAM TAB(*) 0.5 MG PO SCH ×2 (08:15→20:27)
[2016-09-17] MEDS: Promethazine TAB* 25 MG PO PRN (08:18)
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
[2016-09-17] MEDS: cloNIDine TAB* 0.1 MG PO SCH (20:28)
[2016-09-17] MEDS: Topiramate TAB(*) 100 MG PO SCH (20:28)
[2016-09-17] MEDS: Zolpidem TAB* 5 MG PO PRN (20:29)
[2016-09-18] MEDS: Al Hydrox/Mg Hydrox/Simet LIQ* 30 ML UDC PO PRN ×4 (01:26→23:56)
[2016-09-18] MEDS: Levothyroxine TAB* 50 MCG TAB PO SCH (05:46)
[2016-09-18] MEDS: DULoxetine DR CAP* 30 MG CAP.DR PO SCH (08:16)
[2016-09-18] MEDS: Vitamin THERAPEUTIC TAB PO SCH (08:17)
[2016-09-18] MEDS: clonazePAM TAB(*) 0.5 MG PO SCH ×2 (08:17→21:12)
[2016-09-18] MEDS: Ziprasidone CAP* 80 MG PO SCH (08:17)
[2016-09-18] MEDS: Tamsulosin CAP* 0.4 MG PO SCH (08:18)
[2016-09-18] MEDS: Cetirizine* 10 MG TAB PO SCH (08:18)
[2016-09-18] MEDS: Omeprazole CAP* 20 MG PO SCH ×2 (08:18→21:13)
[2016-09-18] MEDS: Promethazine TAB* 25 MG PO PRN (08:19)
--- NOTE | 2016-09-18 12:40 | PN ---
Subjective - Subjective Service Type: 09844 Hosp care 15 min low complexity Subjective: Sonia reports resting, with minimal progress. Continues to hear "taunting voices." Denies current flashbacks. Says he has "a little" in terms of urges to harm himself. He asks for higher dose Geodon. His goal is to start attending groups. Objective - Appearance Appearance: Well Developed/Nourished Hygiene: Normal Grooming: Disheveled - Behavior Psychomotor Activities: Abnormal-Decreased - Attitude and Relatedness Attitude and Relatedness: Cooperative Eye Contact: Good - Speech Quality: Unpressured Latencies: Normal Quantity: Terse - Mood Patient's Decription of Mood: "Anxious" - Affect Observed Affect: Non-labile Affect Consistent with: Dysphoria - Thought Process Patient's Thought Process: Coherent, Impoverished Thought Content: No Passive Wish, No Suicidal Planning, No Homicidal Ideation, No Paranoid Ideation - Sensorium Experiencing Hallucinations: Yes - Level of Consciousness Level of Consciousness: Alert - Impulse Control Impulse Control: Intact - Insight and Judgement Insight and Judgement: Fair Assessment - Assessment Merits Inpatient Hospitalization: For Stabilization, To Initiate Treatment, For Ongoing Evaluation, For Discharge Planning Inpatient DSM-IV Dx: PTSD, Depressive disorder, Psychotic disorder Clinical Impression: 50-year-old mentally disabled male with a history of PTSD, dissociative symptoms , personality disorder, depressive disorder, atypical perceptual disturbances, and many psychiatric hospitalizations. He presented with suicidal thoughts and atypical perceptual disturbances in the setting of abdominal pain and an upsurge in flashbacks. There was no clear precipitant. Settling into the unit. Continues symptomatic with trauma history rumination, perceptual disturbance ( voices) and self harm ideas. Is safe on checks, adherent with routines, withdrawn. Medication management will continue the outpatient medication regimen, with higher dose Geodon. Plan - Plan Treatment Plan: Name: SONIA MONDRAGON Birthdate: 1965 [id number] Continued Medication Management: Continue Outpt Medication Medications: Current Medications Acetaminophen (Tylenol Tab*) 650 mg PO Q4H PRN PRN Reason: for pain; or Temp >101 F Last Admin: 09/17/16 06:01 Dose: 650 mg Al Hydrox/Mg Hydrox/Simethicone (Maalox Plus*) 30 ml PO Q4H PRN PRN Reason: INDIGESTION Last Admin: 09/18/16 05:45 Dose: 30 ml Cetirizine HCl (Zyrtec*) 10 mg PO DAILY [facility] Last Admin: 09/18/16 08:18 Dose: 10 mg Clonazepam (Klonopin Tab(*)) 0.5 mg PO BID [facility] Last Admin: 09/18/16 08:17 Dose: 0.5 mg Clonidine HCl (Catapres Tab*) 0.3 mg PO BEDTIME [facility] Last Admin: 09/17/16 20:28 Dose: 0.3 mg Duloxetine HCl (Cymbalta Cap*) 90 mg PO DAILY [facility] Last Admin: 09/18/16 08:16 Dose: 90 mg Levothyroxine Sodium (Synthroid Tab*) 50 mcg PO DAILY@0600 [facility] Last Admin: 09/18/16 05:46 Dose: 50 mcg Multivitamins (Theragran Tab*) 1 tab PO DAILY [facility] Last Admin: 09/18/16 08:17 Dose: 1 tab Omeprazole (Prilosec Cap*) 20 mg PO BID [facility] Last Admin: 09/18/16 08:18 Dose: 20 mg Promethazine HCl (Phenergan Tab*) 25 mg PO Q8H PRN PRN Reason: NAUSEA Last Admin: 09/18/16 08:19 Dose: 25 mg Tamsulosin HCl (Flomax Cap*) 0.4 mg PO DAILY [facility] Last Admin: 09/18/16 08:18 Dose: 0.4 mg Topiramate (Topamax(*)) 100 mg PO BEDTIME [facility] Last Admin: 09/17/16 20:28 Dose: 100 mg Ziprasidone (Geodon Cap*) 160 mg PO DAILY [facility] Last Admin: 09/18/16 08:17 Dose: 160 mg Zolpidem Tartrate (Ambien Tab*) 5 mg PO BEDTIME PRN PRN Reason: INSOMNIA Last Admin: 09/17/16 20:29 Dose: 5 mg - Discharge Plan Discharge Plan: Out[facility]
[2016-09-18] MEDS: Topiramate TAB(*) 100 MG PO SCH (21:13)
[2016-09-18] MEDS: cloNIDine TAB* 0.1 MG PO SCH (21:13)
[2016-09-18] MEDS: Zolpidem TAB* 5 MG PO PRN (21:14)
[2016-09-19] MEDS: Levothyroxine TAB* 50 MCG TAB PO SCH (05:55)
[2016-09-19] MEDS: Al Hydrox/Mg Hydrox/Simet LIQ* 30 ML UDC PO PRN ×2 (07:40→23:08)
[2016-09-19] MEDS: DULoxetine DR CAP* 30 MG CAP.DR PO SCH (08:29)
[2016-09-19] MEDS: Ziprasidone CAP* 80 MG PO SCH (08:29)
[2016-09-19] MEDS: Tamsulosin CAP* 0.4 MG PO SCH (08:29)
[2016-09-19] MEDS: Omeprazole CAP* 20 MG PO SCH ×2 (08:30→20:28)
[2016-09-19] MEDS: clonazePAM TAB(*) 0.5 MG PO SCH ×2 (08:30→20:29)
[2016-09-19] MEDS: Vitamin THERAPEUTIC TAB PO SCH (08:30)
[2016-09-19] MEDS: Cetirizine* 10 MG TAB PO SCH (08:30)
[2016-09-19] MEDS: Promethazine TAB* 25 MG PO PRN (09:33)
--- NOTE | 2016-09-19 12:40 | PN ---
Subjective - Subjective Service Type: 91766 Hosp care 15 min low complexity Subjective: Sonia reports sense of making progress. Denies suicidal thoughts or flashbacks. Notes ongoing voices but they are milder. Objective - Appearance Appearance: Well Developed/Nourished Hygiene: Normal Grooming: Fairly Well Kept - Behavior Psychomotor Activities: Abnormal-Decreased - Attitude and Relatedness Attitude and Relatedness: Cooperative Eye Contact: Good - Speech Quality: Unpressured Latencies: Normal Quantity: Terse - Mood Patient's Decription of Mood: "Okay" - Affect Observed Affect: Non-labile Affect Consistent with: Dysphoria - Thought Process Patient's Thought Process: Coherent, Impoverished Thought Content: No Passive Wish, No Suicidal Planning, No Homicidal Ideation, No Paranoid Ideation - Sensorium Experiencing Hallucinations: Yes - Level of Consciousness Level of Consciousness: Alert - Impulse Control Impulse Control: Intact - Insight and Judgement Insight and Judgement: Poor Assessment - Assessment Merits Inpatient Hospitalization: For Stabilization, To Initiate Treatment, For Ongoing Evaluation, Consolidate Improvements, For Discharge Planning Inpatient DSM-IV Dx: PTSD, Depressive disorder, Psychotic disorder Clinical Impression: 50-year-old mentally disabled male with a history of PTSD, dissociative symptoms , personality disorder, depressive disorder, atypical perceptual disturbances, and many psychiatric hospitalizations. He presented with suicidal thoughts and atypical perceptual disturbances in the setting of abdominal pain and an upsurge in flashbacks. There was no clear precipitant. Settling into the unit. Stabilizing. Continues symptomatic with trauma history rumination, perceptual disturbance ( voices); but apparent correction of self harm ideas. Is safe on checks, adherent with routines. Medication management will continue the outpatient medication regimen, with higher dose Geodon. Plan - Plan Treatment Plan: Name: SONIA MONDRAGON Birthdate: 1965 [id number] Continued Medication Management: Continue Outpt Medication Medications: Current Medications Acetaminophen (Tylenol Tab*) 650 mg PO Q4H PRN PRN Reason: for pain; or Temp >101 F Last Admin: 09/17/16 06:01 Dose: 650 mg Al Hydrox/Mg Hydrox/Simethicone (Maalox Plus*) 30 ml PO Q4H PRN PRN Reason: INDIGESTION Last Admin: 09/19/16 07:40 Dose: 30 ml Cetirizine HCl (Zyrtec*) 10 mg PO DAILY [facility] Last Admin: 09/19/16 08:30 Dose: 10 mg Clonazepam (Klonopin Tab(*)) 0.5 mg PO BID [facility] Last Admin: 09/19/16 08:30 Dose: 0.5 mg Clonidine HCl (Catapres Tab*) 0.3 mg PO BEDTIME [facility] Last Admin: 09/18/16 21:13 Dose: 0.3 mg Duloxetine HCl (Cymbalta Cap*) 90 mg PO DAILY [facility] Last Admin: 09/19/16 08:29 Dose: 90 mg Levothyroxine Sodium (Synthroid Tab*) 50 mcg PO DAILY@0600 [facility] Last Admin: 09/19/16 05:55 Dose: 50 mcg Multivitamins (Theragran Tab*) 1 tab PO DAILY [facility] Last Admin: 09/19/16 08:30 Dose: 1 tab Omeprazole (Prilosec Cap*) 20 mg PO BID [facility] Last Admin: 09/19/16 08:30 Dose: 20 mg Promethazine HCl (Phenergan Tab*) 25 mg PO Q8H PRN PRN Reason: NAUSEA Last Admin: 09/19/16 09:33 Dose: 25 mg Tamsulosin HCl (Flomax Cap*) 0.4 mg PO DAILY [facility] Last Admin: 09/19/16 08:29 Dose: 0.4 mg Topiramate (Topamax(*)) 100 mg PO BEDTIME [facility] Last Admin: 09/18/16 21:13 Dose: 100 mg Ziprasidone (Geodon Cap*) 160 mg PO DAILY [facility] Last Admin: 09/19/16 08:29 Dose: 160 mg Zolpidem Tartrate (Ambien Tab*) 5 mg PO BEDTIME PRN PRN Reason: INSOMNIA Last Admin: 09/18/16 21:14 Dose: 5 mg - Discharge Plan Discharge Plan: Outpatient [facility]
[2016-09-19] MEDS ORDERED: Ziprasidone * 20 MG CAP (generic Geodon) PO ONE (12:42)
[2016-09-19] MEDS: cloNIDine TAB* 0.1 MG PO SCH (20:28)
[2016-09-19] MEDS: Topiramate TAB(*) 100 MG PO SCH (20:29)
[2016-09-19] MEDS: Zolpidem TAB* 5 MG PO PRN (20:30)
[2016-09-20] MEDS: Acetaminophen TAB* 325 MG PO PRN (05:15)
[2016-09-20] MEDS: Levothyroxine TAB* 50 MCG TAB PO SCH (05:15)
[2016-09-20] MEDS: Al Hydrox/Mg Hydrox/Simet LIQ* 30 ML UDC PO PRN ×3 (06:25→20:35)
[2016-09-20] MEDS: clonazePAM TAB(*) 0.5 MG PO SCH ×2 (08:31→20:35)
[2016-09-20] MEDS: Ziprasidone CAP* 80 MG PO SCH (08:32)
[2016-09-20] MEDS: DULoxetine DR CAP* 30 MG CAP.DR PO SCH (08:32)
[2016-09-20] MEDS: Ziprasidone * 20 MG CAP (generic Geodon) PO SCH (08:32)
[2016-09-20] MEDS: Cetirizine* 10 MG TAB PO SCH (08:33)
[2016-09-20] MEDS: Vitamin THERAPEUTIC TAB PO SCH (08:33)
[2016-09-20] MEDS: Omeprazole CAP* 20 MG PO SCH ×2 (08:33→20:35)
[2016-09-20] MEDS: Tamsulosin CAP* 0.4 MG PO SCH (08:33)
[2016-09-20] MEDS: cloNIDine TAB* 0.1 MG PO SCH (20:34)
[2016-09-20] MEDS: Topiramate TAB(*) 100 MG PO SCH (20:35)
[2016-09-20] MEDS: Zolpidem TAB* 5 MG PO PRN (20:37)
[2016-09-21] MEDS: Levothyroxine TAB* 50 MCG TAB PO SCH (06:22)
[2016-09-21] MEDS: Acetaminophen TAB* 325 MG PO PRN (06:24)
[2016-09-21] MEDS: clonazePAM TAB(*) 0.5 MG PO SCH ×2 (08:19→20:09)
[2016-09-21] MEDS: Vitamin THERAPEUTIC TAB PO SCH (08:19)
[2016-09-21] MEDS: Ziprasidone * 20 MG CAP (generic Geodon) PO SCH (08:20)
[2016-09-21] MEDS: Tamsulosin CAP* 0.4 MG PO SCH (08:20)
[2016-09-21] MEDS: Ziprasidone CAP* 80 MG PO SCH (08:20)
[2016-09-21] MEDS: Cetirizine* 10 MG TAB PO SCH (08:20)
[2016-09-21] MEDS: Omeprazole CAP* 20 MG PO SCH ×2 (08:21→20:09)
[2016-09-21] MEDS: DULoxetine DR CAP* 30 MG CAP.DR PO SCH (08:21)
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
[2016-09-21] MEDS: Al Hydrox/Mg Hydrox/Simet LIQ* 30 ML UDC PO PRN ×2 (12:06→20:10)
[2016-09-21] MEDS: cloNIDine TAB* 0.1 MG PO SCH (20:08)
[2016-09-21] MEDS: Topiramate TAB(*) 100 MG PO SCH (20:09)
[2016-09-21] MEDS: Zolpidem TAB* 5 MG PO PRN (20:10)
[2016-09-22] MEDS: Al Hydrox/Mg Hydrox/Simet LIQ* 30 ML UDC PO PRN ×2 (01:49→07:12)
[2016-09-22] MEDS: Levothyroxine TAB* 50 MCG TAB PO SCH (06:33)
[2016-09-22] MEDS: clonazePAM TAB(*) 0.5 MG PO SCH (08:24)
[2016-09-22] MEDS: Tamsulosin CAP* 0.4 MG PO SCH (08:24)
[2016-09-22] MEDS: Vitamin THERAPEUTIC TAB PO SCH (08:25)
[2016-09-22] MEDS: DULoxetine DR CAP* 30 MG CAP.DR PO SCH (08:25)
[2016-09-22] MEDS: Omeprazole CAP* 20 MG PO SCH (08:25)
[2016-09-22] MEDS: Cetirizine* 10 MG TAB PO SCH (08:25)
[2016-09-22] MEDS: Ziprasidone * 20 MG CAP (generic Geodon) PO SCH (08:25)
[2016-09-22] MEDS: Ziprasidone CAP* 80 MG PO SCH (08:25)
[2016-09-22] MEDS: Acetaminophen TAB* 325 MG PO PRN (08:26)
--- NOTE | 2016-09-22 08:32 | DS ---
Subjective - Subjective Service Types: [id number] [facility] Day Mgmt simple under 30 min Discharge Date: 09/22/16 Subjective: Krzysztof smiled spontaneously and reported a "good" weekend. He notes feeling better, and was interested in going home. He denied distress, flashbacks, perceptual symptoms, or self harm ideas. He denied bothersome mood or anxiety symptoms. We reviewed his course, medication change (Geodon), and aftercare plan. Objective - Appearance Appearance: Well Developed/Nourished Grooming: Fairly Well Kept - Behavior Psychomotor Activities: Normal - Attitude and Relatedness Attitude and Relatedness: Cooperative Eye Contact: Good - Speech Quality: Unpressured Latencies: Normal Quantity: Terse - Mood Patient's Decription of Mood: "Good" - Affect Observed Affect: Non-labile Affect Consistent with: Euthymia - Thought Process Patient's Thought Process: Coherent, Goal Directed, Impoverished Thought Content: No Passive Wish, No Suicidal Planning, No Homicidal Ideation, No Paranoid Ideation - Sensorium Experiencing Hallucinations: No, Sensorium is Clear - Level of Consciousness Level of Consciousness: Alert - Impulse Control Impulse Control: Intact - Insight and Judgement Insight and Judgement: Fair Treatment Course & Assessment Clinical Course & Impression: 50-year-old mentally disabled male with a history of PTSD, dissociative symptoms , personality disorder, depressive disorder, atypical perceptual disturbances, and many psychiatric hospitalizations. He presented with suicidal thoughts and atypical perceptual disturbances in the setting of abdominal pain and an upsurge in flashbacks. There was no clear precipitant. 09/22/16 Clear for release. Krzysztof stabilized here in the usual fashion, starting off symptomatic, and eventually attaining major spontaneous clinical improvement. He appears back to baseline. He initially was symptomatic with trauma history rumination, perceptual disturbance (voices); but apparent correction of self harm ideas. He was safe on checks, adherent with routines. Medication management continued the outpatient medication regimen, with higher dose Geodon. Risk concern centered on suicidal behavior with acute distress. Krzysztof is at chronic elevated risk for suicide based on his condition and history. Acute risk is again reduced by our intervention and assessed as low currently based on his low symptom burden, benign ideation and behavior, and correction of acute impairing factors. Clear for Discharge: Adequate Clinical Respons, Acceptable Safety Profile, Low Utility of Inpt Care Inpatient DSM-IV Dx: PTSD, Depressive disorder, Psychotic disorder Discharge Planning - Discharge Planning Discharge Plan: Outpatient Follow Up Outpatient Program: [facility] Recommendations for Continuing Care: Medication Management, Psychotherapy, Routine Metabolic Monitoring Medications: Current Medications Cetirizine HCl (Zyrtec*) 10 mg PO DAILY [facility] Last Admin: 09/22/16 08:25 Dose: 10 mg Clonazepam (Klonopin Tab(*)) 0.5 mg PO BID [facility] Last Admin: 09/22/16 08:24 Dose: 0.5 mg Clonidine HCl (Catapres Tab*) 0.3 mg PO BEDTIME [facility] Last Admin: 09/21/16 20:08 Dose: 0.3 mg Duloxetine HCl (Cymbalta Cap*) 90 mg PO DAILY [facility] Last Admin: 09/22/16 08:25 Dose: 90 mg Levothyroxine Sodium (Synthroid Tab*) 50 mcg PO DAILY@0600 [facility] Last Admin: 09/22/16 06:33 Dose: 50 mcg Multivitamins (Theragran Tab*) 1 tab PO DAILY [facility] Last Admin: 09/22/16 08:25 Dose: 1 tab Omeprazole (Prilosec Cap*) 20 mg PO BID [facility] Last Admin: 09/22/16 08:25 Dose: 20 mg Promethazine HCl (Phenergan Tab*) 25 mg PO Q8H PRN PRN Reason: NAUSEA Last Admin: 09/19/16 09:33 Dose: 25 mg Tamsulosin HCl (Flomax Cap*) 0.4 mg PO DAILY [facility] Last Admin: 09/22/16 08:24 Dose: 0.4 mg Topiramate (Topamax(*)) 100 mg PO BEDTIME [facility] Last Admin: 09/21/16 20:09 Dose: 100 mg Ziprasidone (Geodon Cap*) 160 mg PO DAILY [facility] Last Admin: 09/22/16 08:25 Dose: 160 mg Ziprasidone (Geodon (Generic) *) 40 mg PO DAILY [facility] Last Admin: 09/22/16 08:25 Dose: 40 mg Zolpidem Tartrate (Ambien Tab*) 5 mg PO BEDTIME PRN PRN Reason: INSOMNIA Last Admin: 09/21/16 20:10 Dose: 5 mg Discharge Planning: Prescriptions provided for discharge [x] Yes Elena Follow up care details as per social work arrangements. Patient response to discharge plan: [x] eager for discharge [] agreeable with discharge plan [] ambivalent about discharge [] disagrees with discharge today
[2016-09-22 08:48] VITALS: BP 110/72
[2016-09-22] MEDS: Promethazine TAB* 25 MG PO PRN (09:50)
--- NOTE | 2016-09-22 11:46 | PN ---
[facility]: Group Therapy Note - Service Type Service Type: 01446 Group Psychotherapy - Cognitive Behavioral Group Therapy ( CBT):Patient attended CBT programming this morning and presented with flat affect that did not vary with discussion. Although responsive to direct prompts to respond to questions, patient did not engage in spontaneous conversation.
--- NOTE | 2016-11-03 11:00 | ED ---
Pablo John Matthew, scribed for Rosanna Miles MD on 09/15/16 at 1449 . Progress - Progress Note Progress Note: ADMIT [facility] STABLE <Pierre Benito - Last Filed: 09/16/16 16:20> - Progress Note Progress Note: A 50 y/o male presents to the ED by police for altered mental status and a mental health evaluation. The patient is c/o depression. Labs were ordered. <Rosanna Miles - Last Filed: 11/03/16 11:00> Course/Dx <Pierre Benito - Last Filed: 09/16/16 16:20> <Rosanna Miles - Last Filed: 11/03/16 11:00> - Diagnoses Provider Diagnoses: Depression The documentation as recorded by the Pablo farah Matthew accurately reflects the service I personally performed and the decisions made by , Rosanna Miles MD.
== END 2016-09-22 15:10 | disposition home or self-care (01) | DRG 882 ==
LOC: ED 14:42 → BSU 09-16 14:48
PROVIDERS: ADMIT Psychiatry & Neurology Psychiatry; ATTEND Psychiatry & Neurology Psychiatry
PROC: GZHZZZZ Group Psychotherapy (ICD-10-PCS; principal; 2016-09-20)
DX: F43.10 Post-traumatic stress disorder, unspecified (principal); F20.9 Schizophrenia, unspecified; D86.9 Sarcoidosis, unspecified; F32.9 Major depressive disorder, single episode, unspecified; F60.9 Personality disorder, unspecified; K21.9 Gastro-esophageal reflux disease without esophagitis; G40.909 Epilepsy, unspecified, not intractable, without status epilepticus; E03.9 Hypothyroidism, unspecified; E78.00 Pure hypercholesterolemia, unspecified; Z81.8 Family history of other mental and behavioral disorders; J42 Unspecified chronic bronchitis; K58.9 Irritable bowel syndrome, unspecified; N40.0 Benign prostatic hyperplasia without lower urinary tract symptoms; Z87.442 Personal history of urinary calculi; F41.9 Anxiety disorder, unspecified; Z82.49 Family history of ischemic heart disease and other diseases of the circulatory system; Z80.9 Family history of malignant neoplasm, unspecified; Z87.891 Personal history of nicotine dependence
CPT/HCPCS: 36415; 80053; 80307; 80320; 80329; 81003; 84443; 85025; 86592; 90853; 93005; 99222; 99231; 99238; 99285; A9270-GY; G0480

== ENCOUNTER 2016-09-30 13:52 | Emergency (ER) | payer MEDICARE, MEDICAID ==
[2016-09-30] MEDS ORDERED: Al Hydrox/Mg Hydrox/Simet LIQ* 30 ML UDC PO ONE (14:30)
[2016-09-30] MEDS ORDERED: Lidocaine 2% VISCOUS* 15 ML UDC PO ONE (14:31)
--- NOTE | 2016-09-30 14:44 | UC ---
Abdominal Pain Male HPI - HPI Summary HPI Summary: 50 yo male with moderate diffuse abd pain since this am nasuea no vomiting or diarrhea normal BM today no f/c states he gets this often and a gi cocktail often helps no UTI symptoms has had an appy and a choly - History of Current Complaint Chief Complaint: UCAbdominalPain Stated Complaint: STOMACH PAIN Time Seen by Provider: 09/30/16 14:25 Hx Obtained From: Patient Onset/Duration: Gradual Onset, Lasting Hours Timing: Constant Severity Initially: Mild Severity Currently: Moderate Pain Intensity: 5 Pain Scale Used: 0-10 Numeric Location: Diffuse Radiates: No Character: Cramping Aggravating Factor(s):: Nothing Alleviating Factor(s): Nothing Associated Signs And Symptoms: Positive: Nausea. Negative: Diaphoresis, Fever, Cough, Chest Pain, Dizzy, Back Pain, Constipation, Blood in Stool, Urinary Symptoms, Decreased Appetite, Vomiting, Diarrhea, Penile Discharge - Allergies/Home Medications Allergies/Adverse Reactions: Allergies Allergy/AdvReac Type Severity Reaction Status Date / Time No Known Allergies Allergy Verified 09/16/16 17:00 PMH/Surg Hx/FS Hx/Imm Hx Previously Healthy: Yes Endocrine History Of: Reports: Thyroid Disease - hypothyroid Denies: Diabetes Cardiovascular History Of: Denies: Hypertension, Pacemaker/ICD, Congestive Heart Failure GI/ History Of: Reports: Gastroesophageal Reflux - chronic abdominal pain, followed by GI, Kidney Stones, Renal Disease - LEFT KIDNEY DECREASE IN FUNCTION Neurological History Of: Reports: Seizures Denies: CVA Psychological History Of: Reports: Anxiety, Depression, Schizophrenia Other History Of: Negative For: Anticoagulant Therapy - Surgical History Surgical History: Yes Surgery Procedure, Year, and Place: 2009 [place] [facility] [place] CYST REMOVED FROM BLADDER[place] [facility] [place]-12/2012 - Family History Known Family History: Positive: Cardiac Disease, Hypertension, Seizure Disorder - sister, Other - cancer - Social History Alcohol Use: None Alcohol Amount: stopped 4 years ago Substance Use Type: None Substance Use Comment - Amount & Last Used: pt states he has not used any drugs since 2011. Smoking Status (MU): Former Smoker Type: Cigarettes Length of Time of Smoking/Using Tobacco: 20YRS Have You Smoked in the Last Year: No When Did the Patient Quit Smoking/Using Tobacco: 2012 Household Exposure Type: Cigarettes - Immunization History Most Recent Influenza Vaccination: Fall 2015 Most Recent Tetanus Shot: Unsure Most Recent Pneumonia Vaccination: Never Review of Systems Constitutional: Negative Skin: Negative Eyes: Negative ENT: Negative Respiratory: Negative Cardiovascular: Negative Gastrointestinal: Abdominal Pain Genitourinary: Negative Motor: Negative Neurovascular: Negative Musculoskeletal: Negative Neurological: Negative Psychological: Negative All Other Systems Reviewed And Are Negative: Yes Physical Exam Triage Information Reviewed: Yes Appearance: Well-Appearing, No Pain Distress, Well-Nourished Vital Signs: Initial Vital Signs Temp 97.9 F 09/30/16 14:10 Pulse 72 09/30/16 14:10 Resp 16 09/30/16 14:10 BP 131/92 09/30/16 14:10 Pulse Ox 95 09/30/16 14:10 Eye Exam: Normal Eyes: Positive: Conjunctiva Clear ENT: Positive: Hearing grossly normal. Negative: Nasal congestion, Nasal drainage, TMs normal, Trismus, Muffled/hoarse voice Dental: Negative: Gross Decay/Caries @, Dental Fracture @ Neck: Positive: Supple, Nontender Respiratory: Positive: Lungs clear, Normal breath sounds, No respiratory distress Cardiovascular: Positive: RRR, No Murmur Abdomen Description: Positive: No Organomegaly, Soft, Distended. Negative: Nontender - diffuse tenderness to deep palp[ation, Bruit, CVA Tenderness (R), CVA Tenderness (L), Guarding, Hernia @, Hepatomegaly, McBurney's Point Tenderness, Peritoneal Signs, Pulsatile Mass, Splenomegaly Bowel Sounds: Positive: Present, Hyperactive Musculoskeletal: Positive: ROM Intact, No Edema Neurological: Positive: Alert Psychological Exam: Normal Skin Exam: Normal Re-Evaluation - Re-Evaluation First Eval Re-Evaluation Time: 16:40 Change: Worse Comment: pulse now 115. lower abd pain Abd Pain Male Course/Dx - Differential Dx/Clinical Impression Provider Diagnoses: abd pain of uncertain cause Discharge - Discharge Plan Condition: Stable Disposition: TRANS HIGHER L OF CARE FAC
[2016-09-30] MEDS ORDERED: Ondansetron ODT TAB* 4 MG PO ONE (15:07)
--- NOTE | 2016-09-30 15:11 | RAD ---
HISTORY: Diffuse abdominal pain COMPARISONS: July 23, 2016 VIEWS: Frontal supine and upright views of the abdomen. FINDINGS: BOWEL: There is a nonspecific bowel gas pattern, with nondilated small bowel gas noted. CALCULI: There are no abnormal calculi. BONES AND SOFT TISSUES: There are no osseous abnormalities. OTHER FINDINGS: The lung bases are clear. There is no subphrenic gas. Surgical clips are noted in the left lower quadrant IMPRESSION: NONSPECIFIC BOWEL GAS PATTERN. NO SUBPHRENIC GAS.
[2016-09-30] MEDS ORDERED: NS 0.9% 1000 ML* 1,000 ML BOLUS ONE (16:27)
[2016-09-30] MEDS ORDERED: Famotidine IV* 10 MG/ML 2 ML (20 mg) IV SLOW PU ONE (16:28)
[2016-09-30 16:31] VITALS: BP 137/88
== END 2016-09-30 16:56 | disposition short-term general hospital (02) ==
LOC: UCEAST 13:52
DX: R10.84 Generalized abdominal pain (principal); R11.0 Nausea; Z90.49 Acquired absence of other specified parts of digestive tract; Z87.891 Personal history of nicotine dependence
CPT/HCPCS: 74020; 96360; 96361; 96374; 99213; A9270-GY; G0463

== ENCOUNTER 2016-09-30 17:27 | Emergency (ER) | payer MEDICARE, MEDICAID ==
[2016-09-30] MEDS ORDERED: Al Hydrox/Mg Hydrox/Simet LIQ* 30 ML UDC PO ONE ×2 (17:34→22:59)
[2016-09-30] MEDS ORDERED: Lidocaine 2% VISCOUS* 15 ML UDC PO ONE ×2 (17:34→22:59)
[2016-09-30] MEDS ORDERED: NS 0.9% 1000 ML* 2,000 ML IV ONE (19:25)
[2016-09-30 20:10] LABS: Hematocrit 43 % (42-52); Hemoglobin 14.5 g/dl (14.0-18.0); Mean Corpuscular HGB Conc 34 g/dl (31-36); Mean Corpuscular Hemoglobin 32 pg (27-31); Mean Corpuscular Volume 94 fL (80-94); Mean Platelet Volume 8 um3 (7.4-10.4); Red Blood Count 4.59 10^6/ul (4.0-5.4); Red Cell Distribution Width 13 % (10.5-15); White Blood Count 7.9 10^3/ul (3.5-10.8)
[2016-09-30 20:14] LABS: Urine Bacteria Absent (Absent); Urine Bilirubin Negative (Negative); Urine Glucose Negative (Negative); Urine Nitrite Negative (Negative)
[2016-09-30 20:24] LABS: Albumin 4.1 g/dL (3.2-5.2); BUN/Creatinine Ratio 16.4 (8-20); C Reactive Protein 9.31 mg/L (< 5.00); EGFR African American 80.2 (>60); EGFR Non-African American 62.4 (>60); Globulin 2.5 g/dL (2-4); Total Bilirubin 0.4 mg/dL (0.2-1.0); Total Protein 6.6 g/dL (6.4-8.9)
[2016-09-30] MEDS ORDERED: Iodixanol* (CONTRAST) 320 MG/ML 100 ML SDV IV ONE (20:49)
--- NOTE | 2016-09-30 22:23 | RAD ---
INDICATION: Lower abdominal pain COMPARISON: CT June 12, 2016 TECHNIQUE: Axial source images were obtained from the hemidiaphragms to the symphysis pubis following administration of oral and intravenous contrast. 100 mL Visipaque 320 was utilized. Coronal and sagittal reconstructed images were acquired. Lung bases: There is mild right basilar scarring or atelectasis. The lung bases are otherwise clear. Liver: The liver is mildly enlarged with findings of mild hepatic steatosis. There are no masses. There is no ductal dilatation. Gallbladder: Cholecystectomy. Spleen: The spleen is normal in size. There are no masses. Pancreas: There is no focal pancreatic mass or ductal dilatation. Adrenal glands: There is no evidence of adrenal mass. Kidneys: There is an atrophic left kidney, unchanged. The right kidney appears normal. There is prompt perfusion and excretion. Adenopathy: There is no evidence of adenopathy by size criteria. Fluid collections: There are no free or localized fluid collections. Vessels:There are no significant atherosclerotic changes involving the aorta. There is no focal aneurysm. The iliac vessels are normal in caliber. The IVC appears normal. GI tract: There are no acute CT bowel findings. There is no obstruction. The GE junction appears patulous. The stomach and small bowel appear normal. The lower GI tract is normal. The cecum, ileocecal valve, and terminal ileum appear normal. The appendix is visualized and appear normal. Pelvic organs: The prostate is normal in size. The seminal vesicles appear prominent, unchanged. Bladder: The bladder appears trabeculated with bladder wall thickening. Abdominal and pelvic soft tissues: The extraperitoneal abdominal and pelvic soft tissues appear normal.. Osseous structures: There are no acute osseous findings. Other: There are surgical clips in the left lower quadrant IMPRESSION: 1. No acute CT findings. No mass or inflammatory change. 2. Atrophic left kidney 3. Trabeculated bladder/lateral wall thickening
[2016-09-30] MEDS ORDERED: Phenazopyridine TAB* 100 MG PO ONE ×2 (22:58→23:03)
[2016-09-30] MEDS ORDERED: Pantoprazole IV* 40 MG IV ONE (22:58)
[2016-09-30] MEDS ORDERED: Sulfamethox/Trimethoprim DS 800/160* TAB PO ONE ×2 (22:59→23:36)
[2016-09-30] MEDS ORDERED: Ketorolac INJ* 30 MG/ML 1 ML VIAL IV ONE (22:59)
--- NOTE | 2016-09-30 23:08 | ED ---
Keaton John Anna, scribed for Pierre Benito MD on 09/30/16 at 1751 . Abdominal Pain/Male - HPI Summary HPI Summary: Patient is a 50 y/o male coming to [facility] presenting with constant, worsening lower abdominal pain that began this morning at 0700. He describes the severity of his pain as 9/10. The patient additionally reports nausea. He was seen at [facility] [place] this morning, and his symptoms were somewhat alleviated by the Zofran and GI cocktail he received there. His pain is exacerbated by movement. He reports normal BM and urination. He denies fever, chills, and testicular pain. - History of Current Complaint Stated Complaint: ABD PAIN Time Seen by Provider: 09/30/16 17:34 Hx Obtained From: Patient Pain Intensity: 9 Pain Scale Used: 0-10 Numeric - Allergies/Home Medications Allergies/Adverse Reactions: Allergies Allergy/AdvReac Type Severity Reaction Status Date / Time No Known Allergies Allergy Verified 09/16/16 17:00 PMH/Surg Hx/FS Hx/Imm Hx Endocrine/Hematology History: Reports: Hx Thyroid Disease - hypothyroid, Hx Anemia Denies: Hx Anticoagulant Therapy, Hx Diabetes, Hx Systemic Lupus Erythematosus Cardiovascular History: Reports: Hx Hypercholesterolemia, Other Cardiovascular Problems/Disorders - HYPERLIPIDEMIA Denies: Hx Congestive Heart Failure, Hx Hypertension, Hx Pacemaker/ICD Respiratory History: Reports: Hx Chronic Bronchitis Comment Only: Other Respiratory Problems/Disorders - Sarcoidosis GI History: Reports: Hx Gastroesophageal Reflux Disease, Hx Irritable Bowel, Hx Obstructive Bowel - Small bowel, Other GI Disorders - CYST REMOVED FROM BLADDER , LATE History: Reports: Hx Benign Prostatic Hyperplasia, Hx Kidney Stones, Hx Renal Disease - LEFT KIDNEY DECREASE IN FUNCTION, Other Problems/Disorders - HX OF CYST IN THE BLADDER Denies: Hx Dialysis Musculoskeletal History: Reports: Other Musculoskeletal History - Sarcoidosis Denies: Hx Rheumatoid Arthritis Sensory History: Reports: Hx Contacts or Glasses Denies: Hx Hearing Aid, Hx Hearing Problem Opthamlomology History: Reports: Hx Contacts or Glasses Neurological History: Reports: Hx Headaches, Hx Seizures, Other Neuro Impairments/Disorders - "light concussion" Psychiatric History: Reports: Hx Anxiety, Hx Depression, Hx Post Traumatic Stress Disorder, Hx Inpatient Treatment, Hx Community Mental Health Tx, Hx Schizophrenia, Hx Suicide Attempt, Hx of Violent Episodes Against Others, Hx Substance Abuse, Other Psychiatric Issues/Disorders Denies: Hx Eating Disorder, Hx Panic Disorder - Cancer History Hx Chemotherapy: No - Surgical History Surgery Procedure, Year, and Place: 2009 APPENDECTOMY, [facility] 1989' CYST REMOVED FROM BLADDER, [facility] CHOLECYSTECTOMY-12/2012 Hx Anesthesia Reactions: No - Immunization History Date of Tetanus Vaccine: Unknown Date of Influenza Vaccine: Fall 2013 Infectious Disease History: No Infectious Disease History: Denies: Hx Clostridium Difficile, Hx Hepatitis, Hx Human Immunodeficiency Virus (HIV), Hx of Known/Suspected MRSA, History Other Infectious Disease, Traveled Outside the [place] in Last 30 Days - Family History Known Family History: Positive: Cardiac Disease, Hypertension, Seizure Disorder - sister, Other - cancer - Social History Alcohol Use: None Alcohol Amount: stopped 4 years ago Hx Substance Use: No Substance Use Type: Reports: None Substance Use Comment - Amount & Last Used: pt states he has not used any drugs since 2011. Hx Tobacco Use: Yes Smoking Status (MU): Former Smoker Type: Cigarettes Length of Time of Smoking/Using Tobacco: 20YRS Have You Smoked in the Last Year: No Review of Systems Negative: Fever, Chills Positive: Abdominal Pain, Nausea All Other Systems Reviewed And Are Negative: Yes Physical Exam Triage Information Reviewed: Yes Vital Signs On Initial Exam: Initial Vitals Temp Pulse Resp BP Pulse Ox 98.5 F 93 20 131/76 94 09/30/16 17:29 09/30/16 17:29 09/30/16 17:29 09/30/16 17:29 09/30/16 17:29 Vital Signs Reviewed: Yes Appearance: Positive: Well-Appearing, No Pain Distress Skin: Positive: Warm, Skin Color Reflects Adequate Perfusion, Dry Head/Face: Positive: Normal Head/Face Inspection Eyes: Positive: EOMI, YANIRA ENT: Positive: Normal ENT inspection Neck: Positive: Supple, Nontender Respiratory/Lung Sounds: Positive: Clear to Auscultation, Breath Sounds Present Cardiovascular: Positive: RRR Abdomen Description: Positive: Soft, Other: - Mildly tender lower abd Bowel Sounds: Positive: Present Musculoskeletal: Positive: Normal, Strength/ROM Intact Neurological: Positive: Normal, Sensory/Motor Intact, Alert, Oriented to Person Place, Time Psychiatric: Positive: Affect/Mood Appropriate Diagnostics - Vital Signs Vital Signs Temp Pulse Resp BP Pulse Ox 09/30/16 17:29 98.5 F 93 20 131/76 94 - Laboratory Lab Results: Lab Results 09/30/16 09/30/16 09/30/16 Range/Units 19:55 19:55 19:55 WBC 7.9 (3.5-10.8) 10^3/ul RBC 4.59 (4.0-5.4) 10^6/ul Hgb 14.5 (14.0-18.0) g/dl Hct 43 (42-52) % MCV 94 (80-94) fL MCH 32 H (27-31) pg MCHC 34 (31-36) g/dl RDW 13 (10.5-15) % Plt Count 229 (150-450) 10^3/ul MPV 8 (7.4-10.4) um3 Neut % (Auto) 79.3 (38-83) % Lymph % (Auto) 12.2 L (25-47) % [place] % (Auto) 6.7 (1-9) % Eos % (Auto) 1.0 (0-6) % Baso % (Auto) 0.8 (0-2) % Absolute Neuts (auto) 6.3 (1.5-7.7) 10^3/ul Absolute Lymphs (auto) 1.0 (1.0-4.8) 10^3/ul Absolute Monos (auto) 0.5 (0-0.8) 10^3/ul Absolute Eos (auto) 0.1 (0-0.6) 10^3/ul Absolute Basos (auto) 0.1 (0-0.2) 10^3/ul Absolute Nucleated RBC 0 10^3/ul Nucleated RBC % 0 Sodium 136 (133-145) mmol/L Potassium 4.0 (3.5-5.0) mmol/L Chloride 106 (101-111) mmol/L Carbon Dioxide 25 (22-32) mmol/L Anion Gap 5 (2-11) mmol/L BUN 20 (6-24) mg/dL Creatinine 1.22 H (0.67-1.17) mg/dL Est GFR ( Amer) 80.2 (>60) Est GFR (Non-Af Amer) 62.4 (>60) BUN/Creatinine Ratio 16.4 (8-20) Glucose 112 H (70-100) mg/dL Lactic Acid 2.3 H* (0.5-2.0) mmol/L Calcium 9.0 (8.6-10.3) mg/dL Total Bilirubin 0.40 (0.2-1.0) mg/dL AST 17 (13-39) U/L ALT 26 (7-52) U/L Alkaline Phosphatase 70 (34-104) U/L C-Reactive Protein 9.31 H (< 5.00) mg/L Total Protein 6.6 (6.4-8.9) g/dL Albumin 4.1 (3.2-5.2) g/dL Globulin 2.5 (2-4) g/dL Albumin/Globulin Ratio 1.6 (1-3) Lipase 41 (11.0-82.0) U/L Urine Color Urine Appearance Urine pH (5-9) Ur Specific [place] (1.010-1.030) Urine Protein (Negative) Urine Ketones (Negative) Urine Blood (Negative) Urine Nitrate (Negative) Urine Bilirubin (Negative) Urine Urobilinogen (Negative) Ur Leukocyte Esterase (Negative) Urine WBC (Auto) (Absent) Urine RBC (Auto) (Absent) Ur Squamous Epith Cells (Absent) Amorphous Crystals (Absent) Urine Bacteria (Absent) Urine Glucose (Negative) Urine Ascorbic Acid (Negative) 09/30/16 Range/Units 19:55 WBC (3.5-10.8) 10^3/ul RBC (4.0-5.4) 10^6/ul Hgb (14.0-18.0) g/dl Hct (42-52) % MCV (80-94) fL MCH (27-31) pg MCHC (31-36) g/dl RDW (10.5-15) % Plt Count (150-450) 10^3/ul MPV (7.4-10.4) um3 Neut % (Auto) (38-83) % Lymph % (Auto) (25-47) % [place] % (Auto) (1-9) % Eos % (Auto) (0-6) % Baso % (Auto) (0-2) % Absolute Neuts (auto) (1.5-7.7) 10^3/ul Absolute Lymphs (auto) (1.0-4.8) 10^3/ul Absolute Monos (auto) (0-0.8) 10^3/ul Absolute Eos (auto) (0-0.6) 10^3/ul Absolute Basos (auto) (0-0.2) 10^3/ul Absolute Nucleated RBC 10^3/ul Nucleated RBC % Sodium (133-145) mmol/L Potassium (3.5-5.0) mmol/L Chloride (101-111) mmol/L Carbon Dioxide (22-32) mmol/L Anion Gap (2-11) mmol/L BUN (6-24) mg/dL Creatinine (0.67-1.17) mg/dL Est GFR ( Amer) (>60) Est GFR (Non-Af Amer) (>60) BUN/Creatinine Ratio (8-20) Glucose (70-100) mg/dL Lactic Acid (0.5-2.0) mmol/L Calcium (8.6-10.3) mg/dL Total Bilirubin (0.2-1.0) mg/dL AST (13-39) U/L ALT (7-52) U/L Alkaline Phosphatase (34-104) U/L C-Reactive Protein (< 5.00) mg/L Total Protein (6.4-8.9) g/dL Albumin (3.2-5.2) g/dL Globulin (2-4) g/dL Albumin/Globulin Ratio (1-3) Lipase (11.0-82.0) U/L Urine Color Yellow Urine Appearance Cloudy Urine pH 7.0 (5-9) Ur Specific [place] 1.019 (1.010-1.030) Urine Protein Negative (Negative) Urine Ketones Negative (Negative) Urine Blood Negative (Negative) Urine Nitrate Negative (Negative) Urine Bilirubin Negative (Negative) Urine Urobilinogen Negative (Negative) Ur Leukocyte Esterase Trace H (Negative) Urine WBC (Auto) 1+(6-10/hpf) H (Absent) Urine RBC (Auto) Absent (Absent) Ur Squamous Epith Cells Present H (Absent) Amorphous Crystals Present H (Absent) Urine Bacteria Absent (Absent) Urine Glucose Negative (Negative) Urine Ascorbic Acid * H (Negative) Result Diagrams: 09/30/16 19:55 09/30/16 19:55 Lab Statement: Any lab studies that have been ordered have been reviewed, and results considered in the medical decision making process. - CT CT abd/pel CT Interpretation: No Acute Changes CT Interpretation Completed By: Radiologist - IMPRESSION: 1. No acute CT findings. No mass or inflammatory change. 2. Atrophic left kidney 3. Trabeculated bladder/lateral wall thickening Re-Evaluation - Re-Evaluation First Eval Re-Evaluation Time: 22:58 Comment: Discussed results and plan of care with patient. He is agreeable with the plan. Abdominal Pain Fem Course/Dx - Course Assessment/Plan: WILL TREAT WITH BACTRIM AND PYRIDIUM FOR BLADDER WALL THICKENING AND LOWER ABD PAIN. DISCHARGE HOME STABLE. - Diagnoses Provider Diagnoses: Abdominal pain Discharge - Discharge Plan Condition: Stable Disposition: HOME Prescriptions: Phenazopyridine TAB* [Pyridium TAB*] 100 mg PO TID PRN #10 tab PRN Reason: Pain Sulfamethox/Trimethoprim DS* [Bactrim DS 800/160 TAB*] 1 tab PO BID #18 tab Patient Education Materials: Abdominal Pain (ED) Referrals: Tran Clayton MD [Primary Care Provider] - Additional Instructions: FOLLOW UP WITH YOUR DOCTOR. RETURN TO THE EMERGENCY DEPARTMENT FOR ANY WORSENING OF YOUR CONDITION OR QUESTIONS OR CONCERNS. The documentation as recorded by the Keaton farah Anna accurately reflects the service I personally performed and the decisions made by me, Pierre Benito MD.
[2016-09-30] MEDS ORDERED: Sulfamethox/Trimethoprim DS 800/160* TAB ONE (23:38)
[2016-09-30 23:48] VITALS: BP 128/80
== END 2016-10-01 00:11 | disposition home or self-care (01) ==
LOC: ED 17:27
DX: R10.30 Lower abdominal pain, unspecified (principal); R11.0 Nausea; Z87.891 Personal history of nicotine dependence; R10.84 Generalized abdominal pain; Z90.49 Acquired absence of other specified parts of digestive tract
CPT/HCPCS: 36415; 74020; 74177; 80053; 81003; 81015; 83605; 83690; 85025; 86140; 87086; 96360; 96361; 96374; 96375; 99213; 99285; A9270-GY; G0463; Q9967

== ENCOUNTER 2016-10-01 13:24 | Emergency (ER) | payer MEDICARE, MEDICAID ==
[2016-10-01 13:38] VITALS: BP 123/90
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
[2016-10-01] MEDS ORDERED: Ibuprofen TAB* 600 MG PO ONE (15:23)
[2016-10-01] MEDS ORDERED: Ibuprofen TAB* 600 MG ONE (15:24)
== END 2016-10-01 16:19 | disposition home or self-care (01) ==
LOC: ED 13:24
DX: G89.29 Other chronic pain (principal); R10.9 Unspecified abdominal pain; F32.9 Major depressive disorder, single episode, unspecified; Z87.891 Personal history of nicotine dependence
CPT/HCPCS: 36415; 99283; A9270-GY

== ENCOUNTER 2016-10-07 10:36 | Inpatient (IN) | payer MEDICARE, MEDICAID ==
[2016-10-07] MEDS ORDERED: NS 0.9% 1000 ML* 2,000 ML IV ONE (11:41)
[2016-10-07 11:59] LABS: Hematocrit 47 % (42-52); Hemoglobin 15.7 g/dl (14.0-18.0); Mean Corpuscular HGB Conc 34 g/dl (31-36); Mean Corpuscular Hemoglobin 31 pg (27-31); Mean Corpuscular Volume 93 fL (80-94); Mean Platelet Volume 8 um3 (7.4-10.4); Red Blood Count 5.03 10^6/ul (4.0-5.4); Red Cell Distribution Width 14 % (10.5-15); White Blood Count 5.9 10^3/ul (3.5-10.8)
[2016-10-07 12:09] LABS: ALT 27 U/L (7-52); AST 29 U/L (13-39); Albumin 4.3 g/dL (3.2-5.2); Alkaline Phosphatase 61 U/L (34-104); Anion Gap 7 mmol/L (2-11); BUN/Creatinine Ratio 17.6 (8-20); Blood Urea Nitrogen 25 mg/dL (6-24); CO2 Carbon Dioxide 23 mmol/L (22-32); Calcium 9.7 mg/dL (8.6-10.3); Chloride 102 mmol/L (101-111); EGFR African American 67.3 (>60); EGFR Non-African American 52.4 (>60); Globulin 2.7 g/dL (2-4); Glucose 110 mg/dL (70-100); Potassium 4.2 mmol/L (3.5-5.0); Sodium 132 mmol/L (133-145)
[2016-10-07 12:20] LABS: Acetaminophen < 15 mcg/mL; Alcohol < 10 mg/dL (<10); Salicylate < 2.50 mg/dL (<30)
[2016-10-07 12:22] LABS: TSH (Thyroid Stimulating Horm) 2.64 mcIU/mL (0.34-5.60)
[2016-10-07] MEDS ORDERED: Lidocaine 2% VISCOUS* 15 ML UDC PO ONE (12:52)
[2016-10-07] MEDS ORDERED: Al Hydrox/Mg Hydrox/Simet LIQ* 30 ML UDC PO ONE (12:52)
[2016-10-07 13:38] LABS: Urine Bilirubin Negative (Negative); Urine Glucose Negative (Negative); Urine Nitrite Negative (Negative)
[2016-10-07 13:49] LABS: Benzodiazepine Urine Screen None Detected (None Detect)
--- NOTE | 2016-10-07 15:02 | RAD ---
INDICATION: Abdominal pain COMPARISON: abdomen September 30, 2016; CT abdomen pelvis September 30, 2016 TECHNIQUE: A single view of the abdomen is submitted. FINDINGS: Bones: There are no acute bony findings. Soft tissues: The soft tissues appear normal. The psoas margins are sharp. Bowel gas pattern: Normal Calcifications: There are no abnormal calcifications. Other: There are clips in left inguinal region. IMPRESSION: NO ACUTE DIAGNOSTIC FINDINGS.
--- NOTE | 2016-10-07 16:27 | ED ---
Keaton John Anna, scribed for Pierre Benito MD on 10/07/16 at 1147 . Substance Abuse/Use - HPI Summary HPI Summary: Patient is a 50 y/o male coming to [facility] following an overdose that took place at 1000 this morning. He reports he took approximately 7-8 Geodon pills. EMS reports the patient has superficial cuts on his abdomen, and the patient currently reports pain in his lower abdomen. He describes the severity of his pain as 9/10 and reports that this pain has been present for several weeks. His history is significant for PTSD, seizures, auditory hallucinations, and depression. - History Of Current Complaint Chief Complaint: EDOverdose Stated Complaint: OVERDOSE Time Seen by Provider: 10/07/16 11:36 Hx Obtained From: Patient, EMS Ingestion History: Type/Name Of Drug - Geodon Overdose Characteristics: Oral - Allergies/Home Medications Allergies/Adverse Reactions: Allergies Allergy/AdvReac Type Severity Reaction Status Date / Time No Known Allergies Allergy Verified 10/01/16 16:20 PMH/Surg Hx/FS Hx/Imm Hx Endocrine/Hematology History: Reports: Hx Thyroid Disease - hypothyroid, Hx Anemia Denies: Hx Anticoagulant Therapy, Hx Diabetes, Hx Systemic Lupus Erythematosus Cardiovascular History: Reports: Hx Hypercholesterolemia, Other Cardiovascular Problems/Disorders - HYPERLIPIDEMIA Denies: Hx Congestive Heart Failure, Hx Hypertension, Hx Pacemaker/ICD Respiratory History: Reports: Hx Chronic Bronchitis Comment Only: Other Respiratory Problems/Disorders - Sarcoidosis GI History: Reports: Hx Gastroesophageal Reflux Disease, Hx Irritable Bowel, Hx Obstructive Bowel - Small bowel, Other GI Disorders - CYST REMOVED FROM BLADDER , LATE History: Reports: Hx Benign Prostatic Hyperplasia, Hx Kidney Stones, Hx Renal Disease - LEFT KIDNEY DECREASE IN FUNCTION, Other Problems/Disorders - HX OF CYST IN THE BLADDER Denies: Hx Dialysis Musculoskeletal History: Reports: Other Musculoskeletal History - Sarcoidosis Denies: Hx Rheumatoid Arthritis Sensory History: Reports: Hx Contacts or Glasses Denies: Hx Hearing Aid, Hx Hearing Problem Opthamlomology History: Reports: Hx Contacts or Glasses Neurological History: Reports: Hx Headaches, Hx Seizures, Other Neuro Impairments/Disorders - "light concussion" Psychiatric History: Reports: Hx Anxiety, Hx Depression, Hx Post Traumatic Stress Disorder, Hx Inpatient Treatment, Hx Community Mental Health Tx, Hx Schizophrenia, Hx Suicide Attempt, Hx of Violent Episodes Against Others, Hx Substance Abuse, Other Psychiatric Issues/Disorders Denies: Hx Eating Disorder, Hx Panic Disorder - Cancer History Hx Chemotherapy: No - Surgical History Surgery Procedure, Year, and Place: 2009 [place] [facility] [place] [facility] [place] Hx Anesthesia Reactions: No - Immunization History Date of Tetanus Vaccine: Unknown Date of Influenza Vaccine: Fall 2013 Infectious Disease History: No Infectious Disease History: Denies: Hx Clostridium Difficile, Hx Hepatitis, Hx Human Immunodeficiency Virus (HIV), Hx of Known/Suspected MRSA, History Other Infectious Disease, Traveled Outside the [place] in Last 30 Days - Family History Known Family History: Positive: Cardiac Disease, Hypertension, Seizure Disorder - sister, Other - cancer - Social History Alcohol Use: None Alcohol Amount: stopped 4 years ago Hx Substance Use: No Substance Use Type: Reports: None Substance Use Comment - Amount & Last Used: pt states he has not used any drugs since 2011. Hx Tobacco Use: Yes Smoking Status (MU): Former Smoker Type: Cigarettes Length of Time of Smoking/Using Tobacco: 20YRS Have You Smoked in the Last Year: No Review of Systems Positive: Abdominal Pain - chronic Psychological: Other - drug overdose All Other Systems Reviewed And Are Negative: Yes Physical Exam Triage Information Reviewed: Yes Vital Signs On Initial Exam: Initial Vitals Temp Pulse Resp BP Pulse Ox 98.4 F 89 18 137/70 96 10/07/16 10:41 10/07/16 10:41 10/07/16 10:41 10/07/16 10:41 10/07/16 10:41 Vital Signs Reviewed: Yes Appearance: Positive: Well-Appearing, No Pain Distress Skin: Positive: Warm, Skin Color Reflects Adequate Perfusion, Dry Head/Face: Positive: Normal Head/Face Inspection Eyes: Positive: EOMI, Other: - 2 mm Pupils ENT: Positive: Normal ENT inspection Neck: Positive: Supple, Nontender Respiratory/Lung Sounds: Positive: Clear to Auscultation, Breath Sounds Present Cardiovascular: Positive: RRR Abdomen Description: Positive: Nontender, Soft Bowel Sounds: Positive: Present Musculoskeletal: Positive: Normal, Strength/ROM Intact Neurological: Positive: Sensory/Motor Intact, Alert, Oriented to Person Place, Time, Other - some slowness of speech Psychiatric: Positive: Affect/Mood Appropriate Diagnostics - Vital Signs Vital Signs Temp Pulse Resp BP Pulse Ox 10/07/16 11:00 87 22 94 10/07/16 10:41 98.4 F 89 22 137/70 95 - Laboratory Lab Results: Lab Results 10/07/16 10/07/16 10/07/16 Range/Units 11:00 11:00 11:00 WBC 5.9 (3.5-10.8) 10^3/ul RBC 5.03 (4.0-5.4) 10^6/ul Hgb 15.7 (14.0-18.0) g/dl Hct 47 (42-52) % MCV 93 (80-94) fL MCH 31 (27-31) pg MCHC 34 (31-36) g/dl RDW 14 (10.5-15) % Plt Count 256 (150-450) 10^3/ul MPV 8 (7.4-10.4) um3 Neut % (Auto) 76.4 (38-83) % Lymph % (Auto) 12.8 L (25-47) % Love % (Auto) 8.1 (1-9) % Eos % (Auto) 0.6 (0-6) % Baso % (Auto) 2.1 H (0-2) % Absolute Neuts (auto) 4.5 (1.5-7.7) 10^3/ul Absolute Lymphs (auto) 0.8 L (1.0-4.8) 10^3/ul Absolute Monos (auto) 0.5 (0-0.8) 10^3/ul Absolute Eos (auto) 0 (0-0.6) 10^3/ul Absolute Basos (auto) 0.1 (0-0.2) 10^3/ul Absolute Nucleated RBC 0 10^3/ul Nucleated RBC % 0 Sodium 132 L (133-145) mmol/L Potassium 4.2 (3.5-5.0) mmol/L Chloride 102 (101-111) mmol/L Carbon Dioxide 23 (22-32) mmol/L Anion Gap 7 (2-11) mmol/L BUN 25 H (6-24) mg/dL Creatinine 1.42 H (0.67-1.17) mg/dL Est GFR ( Amer) 67.3 (>60) Est GFR (Non-Af Amer) 52.4 (>60) BUN/Creatinine Ratio 17.6 (8-20) Glucose 110 H (70-100) mg/dL Lactic Acid 1.0 (0.5-2.0) mmol/L Calcium 9.7 (8.6-10.3) mg/dL Total Bilirubin 0.40 (0.2-1.0) mg/dL AST 29 (13-39) U/L ALT 27 (7-52) U/L Alkaline Phosphatase 61 (34-104) U/L Total Protein 7.0 (6.4-8.9) g/dL Albumin 4.3 (3.2-5.2) g/dL Globulin 2.7 (2-4) g/dL Albumin/Globulin Ratio 1.6 (1-3) TSH 2.64 (0.34-5.60) mcIU/mL Urine Color Urine Appearance Urine pH (5-9) Ur Specific [place] (1.010-1.030) Urine Protein (Negative) Urine Ketones (Negative) Urine Blood (Negative) Urine Nitrate (Negative) Urine Bilirubin (Negative) Urine Urobilinogen (Negative) Ur Leukocyte Esterase (Negative) Urine Glucose (Negative) Salicylates < 2.50 (<30) mg/dL Urine Opiates Screen (None Detect) Acetaminophen < 15 mcg/mL Ur Barbiturates Screen (None Detect) Ur Phencyclidine Scrn (None Detect) Ur Amphetamines Screen (None Detect) U Benzodiazepines Scrn (None Detect) Urine Cocaine Screen (None Detect) U Cannabinoids Screen (None Detect) Serum Alcohol < 10 (<10) mg/dL 10/07/16 10/07/16 Range/Units 13:17 13:17 WBC (3.5-10.8) 10^3/ul RBC (4.0-5.4) 10^6/ul Hgb (14.0-18.0) g/dl Hct (42-52) % MCV (80-94) fL MCH (27-31) pg MCHC (31-36) g/dl RDW (10.5-15) % Plt Count (150-450) 10^3/ul MPV (7.4-10.4) um3 Neut % (Auto) (38-83) % Lymph % (Auto) (25-47) % Love % (Auto) (1-9) % Eos % (Auto) (0-6) % Baso % (Auto) (0-2) % Absolute Neuts (auto) (1.5-7.7) 10^3/ul Absolute Lymphs (auto) (1.0-4.8) 10^3/ul Absolute Monos (auto) (0-0.8) 10^3/ul Absolute Eos (auto) (0-0.6) 10^3/ul Absolute Basos (auto) (0-0.2) 10^3/ul Absolute Nucleated RBC 10^3/ul Nucleated RBC % Sodium (133-145) mmol/L Potassium (3.5-5.0) mmol/L Chloride (101-111) mmol/L Carbon Dioxide (22-32) mmol/L Anion Gap (2-11) mmol/L BUN (6-24) mg/dL Creatinine (0.67-1.17) mg/dL Est GFR ( Amer) (>60) Est GFR (Non-Af Amer) (>60) BUN/Creatinine Ratio (8-20) Glucose (70-100) mg/dL Lactic Acid (0.5-2.0) mmol/L Calcium (8.6-10.3) mg/dL Total Bilirubin (0.2-1.0) mg/dL AST (13-39) U/L ALT (7-52) U/L Alkaline Phosphatase (34-104) U/L Total Protein (6.4-8.9) g/dL Albumin (3.2-5.2) g/dL Globulin (2-4) g/dL Albumin/Globulin Ratio (1-3) TSH (0.34-5.60) mcIU/mL Urine Color Straw Urine Appearance Clear Urine pH 6.0 (5-9) Ur Specific [place] 1.009 L (1.010-1.030) Urine Protein Negative (Negative) Urine Ketones Negative (Negative) Urine Blood Negative (Negative) Urine Nitrate Negative (Negative) Urine Bilirubin Negative (Negative) Urine Urobilinogen Negative (Negative) Ur Leukocyte Esterase Negative (Negative) Urine Glucose Negative (Negative) Salicylates (<30) mg/dL Urine Opiates Screen None detected (None Detect) Acetaminophen mcg/mL Ur Barbiturates Screen None detected (None Detect) Ur Phencyclidine Scrn None detected (None Detect) Ur Amphetamines Screen None detected (None Detect) U Benzodiazepines Scrn None detected (None Detect) Urine Cocaine Screen None detected (None Detect) U Cannabinoids Screen None detected (None Detect) Serum Alcohol (<10) mg/dL Result Diagrams: 10/07/16 11:00 10/07/16 11:00 Lab Statement: Any lab studies that have been ordered have been reviewed, and results considered in the medical decision making process. - Radiology abd XR Xray Interpretation: No Acute Changes Radiology Interpretation Completed By: Radiologist - EKG 1037 Cardiac Rate: NL - 89 bpm EKG Rhythm: Sinus Rhythm ST Segment: Normal Ectopy: None EKG Interpretation: LVH. OR 155. QT 367. QTc 447. 1557 Cardiac Rate: NL - 79 bpm EKG Rhythm: Sinus Rhythm EKG Interpretation: LVH. OR 165. QT 409. QTc 469. Re-Evaluation - Re-Evaluation First Eval Re-Evaluation Time: 13:59 Comment: The patient reports his lower abdomen is painful. His BM is normal. Denies blood in stool. He did not take the Geodon overdose because of the pain. He agrees to CT scan. Course/Dx - Course Assessment/Plan: ADMIT MHU STABLE. - Diagnoses Provider Diagnoses: Overdose, Mental health problem, Abdominal pain Discharge - Discharge Plan Condition: Stable Disposition: ADMITTED TO [facility] Referrals: Tran Clayton MD [Primary Care Provider] - The documentation as recorded by the Keaton farah Anna accurately reflects the service I personally performed and the decisions made by me, Pierre Benito MD.
[2016-10-07] MEDS ORDERED: Nicotine Inhaler* 10 MG AMP INH PRN (17:14)
[2016-10-07] MEDS ORDERED: Mouth Piece, Nicotine* 1 EACH CARTRIDGE INH PRN (17:17)
[2016-10-07] MEDS ORDERED: Ergocalciferol CAP* 50000 UNIT PO SCH (18:00)
[2016-10-07] MEDS: Sulfamethox/Trimethoprim DS 800/160* TAB PO SCH (20:31)
[2016-10-07] MEDS: cloNIDine TAB* 0.1 MG PO SCH (20:31)
[2016-10-07] MEDS: Zolpidem TAB* 5 MG PO SCH (20:32)
[2016-10-08] MEDS: Levothyroxine TAB* 50 MCG TAB PO SCH (06:02)
[2016-10-08] MEDS: Vitamin THERAPEUTIC TAB PO SCH (08:06)
[2016-10-08] MEDS: Ziprasidone CAP* 80 MG PO SCH (08:06)
[2016-10-08] MEDS: Omeprazole CAP* 20 MG PO SCH (08:06)
[2016-10-08] MEDS: DULoxetine DR CAP* 30 MG CAP.DR PO SCH (08:06)
[2016-10-08] MEDS: Cetirizine* 10 MG TAB PO SCH (08:07)
[2016-10-08] MEDS: Topiramate TAB(*) 100 MG PO SCH (08:07)
[2016-10-08] MEDS: Tamsulosin CAP* 0.4 MG PO SCH (08:07)
[2016-10-08] MEDS: Ziprasidone * 20 MG CAP (generic Geodon) PO SCH (08:07)
[2016-10-08] MEDS: Sulfamethox/Trimethoprim DS 800/160* TAB PO SCH (08:08)
[2016-10-08] MEDS: Acetaminophen TAB* 325 MG PO PRN ×2 (09:26→16:32)
[2016-10-08] MEDS: Al Hydrox/Mg Hydrox/Simet LIQ* 30 ML UDC PO PRN (09:59)
[2016-10-08] MEDS: Promethazine TAB* 25 MG PO PRN (12:53)
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
[2016-10-08] MEDS: Dicyclomine CAP* 10 MG PO SCH (20:44)
[2016-10-08] MEDS: cloNIDine TAB* 0.1 MG PO SCH (20:44)
--- NOTE | 2016-10-08 20:53 | CONS ---
MEDICAL CONSULTATION NOTE: DATE OF CONSULT: DATE OF DICTATION: 10/08/16 CONSULTING PROVIDER: DEBBIE Lowe SUPERVISING PHYSICIAN: Dr. Lima Doe. CHIEF COMPLAINT: Abdominal pain. HISTORY OF PRESENT ILLNESS: This is a 50-year-old gentleman with a history of PTSD, chronic kidney disease, chronic abdominal pain, hypothyroidism, who presented to the emergency department with suicidal behavior exhibited by an overdose on his Geodon and superficial laceration to his abdomen. The patient has a history of chronic abdominal pain and was complaining about this with his last psychiatric admission from which he was discharged on the 22 of September and also seen in the emergency department on both and 01 of October also with complaints of abdominal pain. He had a CT scan performed on 30 of September, which essentially showed no acute process. There was some concern about perhaps some bladder wall thickening and the patient was treated empirically for a urinary tract infection with Bactrim. The patient reports no improvement in his abdominal symptoms since initiating Bactrim. He states that his pain is rather constant and seems to go across his abdomen below his umbilicus. He has frequent loose stools, which is pretty typical for him without evidence of blood or excessive mucus. He does have occasional nausea, which is treated with as-needed Phenergan with good effect but no associated vomiting. The patient states that he has been seen by Gastroenterology for these complaints and underwent a colonoscopy approximately 1 year ago, which he reports was normal. PAST MEDICAL HISTORY: 1. PTSD. 2. Chronic kidney disease. 3. Chronic abdominal pain. 4. Hypothyroidism. HOME MEDICATIONS: 1. Antacid suspension 10 mL p.o. b.i.d. as needed. 2. Cymbalta 30 mg p.o. daily. 3. Ergocalciferol 50,000 units p.o. monthly. 4. Levocetirizine 5 mg p.o. daily. 5. Levothyroxine 50 mcg p.o. daily. 6. Protonix 40 mg p.o. daily. 7. Phenergan 25 mg p.o. q.8 hours p.r.n. nausea and vomiting. 8. Bactrim DS one tablet p.o. b.i.d. 9. Flomax 0.4 mg p.o. daily. 10. Topamax 100 mg p.o. daily. 11. Geodon total of 200 mg daily. 12. Ambien controlled release 6.25 mg p.o. at bedtime. 13. Clonidine 0.3 mg p.o. at bedtime. REVIEW OF SYSTEMS: As listed above in the HPI. PHYSICAL EXAM: Most recent vitals: Temperature 97.9 degrees Fahrenheit, pulse 86 beats per minute, respiratory rate 16 per minute, oxygen saturation 99% on room air, blood pressure 118/77 mmHg. General: This is a pleasant middle-aged gentleman, in no acute distress. HEENT: Head is normocephalic, atraumatic. Mucous membranes are pink and moist. Cardiovascular: Heart has regular rate and rhythm without murmurs, rubs, or gallops. Respiratory: Lungs are clear to auscultation without wheezes, crackles, or rhonchi. Abdomen: Abdomen is soft and nontender to palpation. Bowel sounds are present. Extremities: No edema appreciated. Skin: Limited exam. Shows no concerning rashes or lesions. Psych: The patient is alert, appropriately oriented, appropriately engaged in conversation. DIAGNOSTIC STUDIES/LAB DATA: Laboratory evaluation from 10/07/16: CBC is unremarkable with white blood cell count of 5900, hemoglobin 15.7 g/dL, and platelet count of 256,000. Comprehensive metabolic panel showed sodium of 132 mmol/L, potassium 4.2 mmol/L, gap of 7, BUN 25, creatinine 1.42 with an estimated GFR of 52. Random glucose of 110 mg/dL. Lactic acid normal at 1.0. Transaminases and total bilirubin within normal limits. TSH normal at 2.64. Urinalysis is unremarkable. Toxicology screen is negative. Imaging: X-ray of the abdomen 10/07/16 shows no acute process. CT of the abdomen from 09/30/16 shows no acute process. ASSESSMENT AND PLAN: This is a 50-year-old gentleman with history of posttraumatic stress disorder, chronic kidney disease, chronic abdominal pain, and hypothyroidism. Psychiatry requested hospitalist consultation for concern of abdominal pain. 1. Abdominal pain - this is a chronic complaint for this patient. He states that the quality and location of his pain has not changed since prior evaluation. He had imaging completed within the last 10 days for the same complaint that was benign. Labs reviewed from yesterday also appeared benign for any intraabdominal pathology. He states that he has been seen by Gastroenterology for this and has had a negative colonoscopy. Suspected irritable bowel syndrome is the appropriate diagnosis for this patient. Could trial an antispasmodic such as Bentyl as he has associated diarrhea. Would recommend starting 20 mg p.o. 4 times daily and evaluate for response. Can also sometimes use tricyclic antidepressants in these cases with some effect, but will leave this to the judgment of psychiatrist. 2. Posttraumatic stress disorder - treatment per Psychiatry. 3. Hypothyroidism with normal TSH - continue current dose of levothyroxine. 4. Chronic kidney disease. DISPOSITION: Thank you very much for consult on Mr. Banegas. Would recommend trialing medications as listed above. This does appear to be a chronic complaint and would benefit from outpatient followup with either GI or his primary care provider especially if he does not have an adequate response to Bentyl. DEBBIE LOWE CC: Primary Care Provider, Tran Clayton MD* [id number]/[facility] #: [id number] REBEKA
[2016-10-08] MEDS: Zolpidem TAB* 5 MG PO SCH (20:58)
[2016-10-09] MEDS: Al Hydrox/Mg Hydrox/Simet LIQ* 30 ML UDC PO PRN (05:57)
[2016-10-09] MEDS: Levothyroxine TAB* 50 MCG TAB PO SCH (06:18)
[2016-10-09] MEDS: Dicyclomine CAP* 10 MG PO SCH ×4 (07:55→20:38)
[2016-10-09] MEDS: Cetirizine* 10 MG TAB PO SCH (08:18)
[2016-10-09] MEDS: DULoxetine DR CAP* 30 MG CAP.DR PO SCH (08:18)
[2016-10-09] MEDS: Tamsulosin CAP* 0.4 MG PO SCH (08:19)
[2016-10-09] MEDS: Omeprazole CAP* 20 MG PO SCH (08:19)
[2016-10-09] MEDS: Ziprasidone * 20 MG CAP (generic Geodon) PO SCH (08:20)
[2016-10-09] MEDS: Vitamin THERAPEUTIC TAB PO SCH (08:20)
[2016-10-09] MEDS: Topiramate TAB(*) 100 MG PO SCH (08:20)
[2016-10-09] MEDS: Ziprasidone CAP* 80 MG PO SCH (08:21)
--- NOTE | 2016-10-09 09:07 | PN ---
Subjective - Subjective Service Type: 44674 Hosp care 15 min low complexity Subjective: Sonia reports poor sleep, only 3-4 hours last night. He requests being ordered a larger dose of Maalox than the 4 mL currently ordered. He reports abdominal pain has improved with Bentyl, ordered for him by Josh Flanagan. Objective - Appearance Appearance: Well Developed/Nourished Dysmorphic Features: No Hygiene: Normal Grooming: Disheveled - Behavior Psychomotor Activities: Abnormal-Increased Exhibits Abnormal Movement: No - Attitude and Relatedness Attitude and Relatedness: Cooperative Eye Contact: Good - Speech Quality: Unpressured Latencies: Normal Quantity: Appropriate - Mood Patient's Decription of Mood: "Not good" - Affect Observed Affect: Depressed Affect Consistent with: Dysphoria - Thought Process Patient's Thought Process: Coherent, Goal Directed, Impoverished Thought Content: Yes Passive Wish, Yes Suicidal Planning - but "getting better", No Homicidal Ideation, No Paranoid Ideation - Sensorium Experiencing Hallucinations: No, Sensorium is Clear Type of Hallucinations: Visual: No, Auditory: No, Command: No - Level of Consciousness Level of Consciousness: Alert Orientation: Yes Intact, Yes Orientated to Time, Yes Orientated to Place, Yes Orientated to Person - Impulse Control Impulse Control: Intact - Insight and Judgement Insight and Judgement: Poor - Group Participation Particating in Group Activities: No - Medication Management Medication Management Adherence: Yes Assessment - Assessment Merits Inpatient Hospitalization: For Immediate Safety, For Stabilization, For Discharge Planning Inpatient DSM-IV Dx: PTSD. Depressive Disorder. Personality Disorder Clinical Impression: 2.22.17 Sonia Banegas presents now in a very similar fashion to prior presentations here , with report of intolerable abdominal pain accompanied by recrudescence of PTSD symptoms. He is seeking opiate analgesia for the abdominal pain. He had presented several times in the past few days and weeks to the emergency department with complaint of abdominal pain and had been sent home for outpatient follow-up. He came back on this occasion with a sublethal suicide attempt on seven to eight Geodon and superficial cutting on his abdomen. He was medically cleared in the ED. We will be having a hospitalist see him about the abdominal pain and follow their recommendations. It may also be that his complaint of abdominal pain is psychogenic, related to his PTSD symptoms. We will be encouraging him to make use of the safety of the therapeutic milieu and groups. We will be exploring the possibility of placement into a retirement as he has requested. We will continue his outpatient medication regimen. Resolution of his suicidality will be criterion for discharge, which may be to some form of interim housing toward ultimate placement into a group living facility, which may take weeks to come to fruition. 2 Sonia reports some improvement of mood today alongside reduced abdominal pain. He reports also reduced thoughts of suicide. He says he does not yet feel safe to discharge today. Plan - Plan Treatment Plan: Name: SONIA BANEGAS Birthdate: 1965 [id number] Continue current meds. Monitor MS and safety. Encourage groups and milieu. Discharge to followup care already in place when SI remitted. Medications: Current Medications Acetaminophen (Tylenol Tab*) 650 mg PO Q4H PRN PRN Reason: for pain; or Temp >101 F Last Admin: 10/08/16 16:32 Dose: 650 mg Al Hydrox/Mg Hydrox/Simethicone (Maalox Plus*) 10 ml PO BID PRN PRN Reason: NAUSEA/VOMITING Last Admin: 10/09/16 05:57 Dose: 10 ml Cetirizine HCl (Zyrtec*) 10 mg PO DAILY [facility] Last Admin: 10/09/16 08:18 Dose: 10 mg Clonidine HCl (Catapres Tab*) 0.3 mg PO BEDTIME [facility] Last Admin: 10/08/16 20:44 Dose: 0.3 mg Device (Nicotine Mouth Piece*) 1 each INH ONCE PRN PRN Reason: CRAVINGS Dicyclomine HCl (Bentyl Cap*) 20 mg PO ACHS [facility] Last Admin: 10/09/16 07:55 Dose: 20 mg Duloxetine HCl (Cymbalta Cap*) 30 mg PO DAILY [facility] Last Admin: 10/09/16 08:18 Dose: 30 mg Ergocalciferol (Drisdol Cap*) 50,000 unit PO MONTHLY [facility] Levothyroxine Sodium (Synthroid Tab*) 50 mcg PO 0600 [facility] Last Admin: 10/09/16 06:18 Dose: 50 mcg Multivitamins (Theragran Tab*) 1 tab PO DAILY [facility] Last Admin: 10/09/16 08:20 Dose: 1 tab Nicotine (Nicotine Inhaler*) 10 mg INH Q2H PRN PRN Reason: CRAVING Omeprazole (Prilosec Cap*) 20 mg PO DAILY [facility] Last Admin: 10/09/16 08:19 Dose: 20 mg Promethazine HCl (Phenergan Tab*) 25 mg PO Q8H PRN PRN Reason: NAUSEA Last Admin: 10/08/16 12:53 Dose: 25 mg Tamsulosin HCl (Flomax Cap*) 0.4 mg PO QAM [facility] Last Admin: 10/09/16 08:19 Dose: 0.4 mg Topiramate (Topamax(*)) 100 mg PO DAILY [facility] Last Admin: 10/09/16 08:20 Dose: 100 mg Ziprasidone (Geodon (Generic) *) 40 mg PO DAILY [facility] Last Admin: 10/09/16 08:20 Dose: 40 mg Ziprasidone (Geodon Cap*) 160 mg PO DAILY [facility] Last Admin: 10/09/16 08:21 Dose: 160 mg Zolpidem Tartrate (Ambien Tab*) 5 mg PO BEDTIME [facility] Last Admin: 10/08/16 20:58 Dose: 5 mg - Discharge Plan Discharge Plan: Outpatient Follow Up Outpatient Program: [facility]
[2016-10-09] MEDS: cloNIDine TAB* 0.1 MG PO SCH (20:37)
[2016-10-09] MEDS: Zolpidem TAB* 5 MG PO SCH (20:37)
[2016-10-10] MEDS: Omeprazole CAP* 20 MG PO SCH (08:18)
[2016-10-10] MEDS: Tamsulosin CAP* 0.4 MG PO SCH (08:18)
[2016-10-10] MEDS: DULoxetine DR CAP* 30 MG CAP.DR PO SCH (08:18)
[2016-10-10] MEDS: Cetirizine* 10 MG TAB PO SCH (08:18)
[2016-10-10] MEDS: Ziprasidone CAP* 80 MG PO SCH (08:19)
[2016-10-10] MEDS: Ziprasidone * 20 MG CAP (generic Geodon) PO SCH (08:19)
[2016-10-10] MEDS: Vitamin THERAPEUTIC TAB PO SCH (08:20)
[2016-10-10] MEDS: Topiramate TAB(*) 100 MG PO SCH (08:21)
[2016-10-10] MEDS: Dicyclomine CAP* 10 MG PO SCH ×4 (08:22→20:34)
[2016-10-10] MEDS: Levothyroxine TAB* 50 MCG TAB PO SCH (08:31)
--- NOTE | 2016-10-10 10:18 | PN ---
Subjective - Subjective Service Type: 87849 Hosp care 15 min low complexity Subjective: Sonia reports today that while he has no thoughts of self-harm of any sort here on the unit, he anticipates that if he goes home he will again have the urge to harm himself, as he did prior to admission with a suicide attempt with 7 -8 Geodon tablets and superficial cutting on his abdomen. He reports partial remission of abdominal pain today, rating it now 4 or 5 out out 10, compared with 9/10 on the day of admission. Objective - Appearance Appearance: Well Developed/Nourished Dysmorphic Features: No Hygiene: Normal Grooming: Disheveled - Behavior Psychomotor Activities: Normal Exhibits Abnormal Movement: No - Attitude and Relatedness Attitude and Relatedness: Cooperative Eye Contact: Fair - Speech Quality: Unpressured Latencies: Normal Quantity: Terse - Mood Patient's Decription of Mood: "Good" - Affect Observed Affect: Fair Affect Consistent with: Euthymia - Thought Process Patient's Thought Process: Coherent, Goal Directed, Impoverished Thought Content: No Passive Wish, No Suicidal Planning - but expects SI if returns home, No Homicidal Ideation, No Paranoid Ideation - Sensorium Experiencing Hallucinations: No, Sensorium is Clear Type of Hallucinations: Visual: No, Auditory: No, Command: No - Level of Consciousness Level of Consciousness: Alert Orientation: Yes Intact, Yes Orientated to Time, Yes Orientated to Place, Yes Orientated to Person - Impulse Control Impulse Control: Intact - Insight and Judgement Insight and Judgement: Poor - Group Participation Particating in Group Activities: No Group Participation Comments: Only evening group on rejection in past 24 hours - Medication Management Medication Management Adherence: Yes Assessment - Assessment Merits Inpatient Hospitalization: For Immediate Safety, For Stabilization, For Discharge Planning Inpatient DSM-IV Dx: PTSD. Depressive Disorder. Personality Disorder Clinical Impression: 2.22.17 Sonia Banegas presents now in a very similar fashion to prior presentations here , with report of intolerable abdominal pain accompanied by recrudescence of PTSD symptoms. He is seeking opiate analgesia for the abdominal pain. He had presented several times in the past few days and weeks to the emergency department with complaint of abdominal pain and had been sent home for outpatient follow-up. He came back on this occasion with a sublethal suicide attempt on seven to eight Geodon and superficial cutting on his abdomen. He was medically cleared in the ED. We will be having a hospitalist see him about the abdominal pain and follow their recommendations. It may also be that his complaint of abdominal pain is psychogenic, related to his PTSD symptoms. We will be encouraging him to make use of the safety of the therapeutic milieu and groups. We will be exploring the possibility of placement into a nursing home as he has requested. We will continue his outpatient medication regimen. Resolution of his suicidality will be criterion for discharge, which may be to some form of interim housing toward ultimate placement into a group living facility, which may take weeks to come to fruition. 2.23.17 Sonia reports some improvement of mood today alongside reduced abdominal pain. He reports also reduced thoughts of suicide. He says he does not yet feel safe to discharge today. 2.24.17 Sonia reports good mood and remission of SI on the unit, with reduced rating of abdominal pain. He is not attending groups. He seeks discharge directly to a group living arrangement as he says he is unsafe in his current housing, as he demonstrated with suicide attempt or suicidal gesture. Plan - Plan Treatment Plan: Name: SONIA BANEGAS Birthdate: 1965 [id number] Continue current meds. Monitor MS and safety. Encourage groups and milieu. Discharge to followup care already in place when SI remitted. Resisting return to home, saying it is unsafe, seeks group living arrangement: social work addressing this request. Continued Medication Management: Continue Outpt Medication - plus Bentyl Medications: Current Medications Acetaminophen (Tylenol Tab*) 650 mg PO Q4H PRN PRN Reason: for pain; or Temp >101 F Last Admin: 10/08/16 16:32 Dose: 650 mg Al Hydrox/Mg Hydrox/Simethicone (Maalox Plus*) 10 ml PO BID PRN PRN Reason: NAUSEA/VOMITING Last Admin: 10/09/16 05:57 Dose: 10 ml Cetirizine HCl (Zyrtec*) 10 mg PO DAILY [facility] Last Admin: 10/10/16 08:18 Dose: 10 mg Clonidine HCl (Catapres Tab*) 0.3 mg PO BEDTIME [facility] Last Admin: 10/09/16 20:37 Dose: 0.3 mg Device (Nicotine Mouth Piece*) 1 each INH ONCE PRN PRN Reason: CRAVINGS Dicyclomine HCl (Bentyl Cap*) 20 mg PO ACHS [facility] Last Admin: 10/10/16 08:22 Dose: 20 mg Duloxetine HCl (Cymbalta Cap*) 30 mg PO DAILY [facility] Last Admin: 10/10/16 08:18 Dose: 30 mg Ergocalciferol (Drisdol Cap*) 50,000 unit PO MONTHLY [facility] Levothyroxine Sodium (Synthroid Tab*) 50 mcg PO 0600 [facility] Last Admin: 10/10/16 08:31 Dose: 50 mcg Multivitamins (Theragran Tab*) 1 tab PO DAILY [facility] Last Admin: 10/10/16 08:20 Dose: 1 tab Nicotine (Nicotine Inhaler*) 10 mg INH Q2H PRN PRN Reason: CRAVING Omeprazole (Prilosec Cap*) 20 mg PO DAILY [facility] Last Admin: 10/10/16 08:18 Dose: 20 mg Promethazine HCl (Phenergan Tab*) 25 mg PO Q8H PRN PRN Reason: NAUSEA Last Admin: 10/08/16 12:53 Dose: 25 mg Tamsulosin HCl (Flomax Cap*) 0.4 mg PO QAM [facility] Last Admin: 10/10/16 08:18 Dose: 0.4 mg Topiramate (Topamax(*)) 100 mg PO DAILY [facility] Last Admin: 10/10/16 08:21 Dose: 100 mg Ziprasidone (Geodon (Generic) *) 40 mg PO DAILY [facility] Last Admin: 10/10/16 08:19 Dose: 40 mg Ziprasidone (Geodon Cap*) 160 mg PO DAILY [facility] Last Admin: 10/10/16 08:19 Dose: 160 mg Zolpidem Tartrate (Ambien Tab*) 5 mg PO BEDTIME [facility] Last Admin: 10/09/16 20:37 Dose: 5 mg - Discharge Plan Discharge Plan: Outpatient Follow Up Outpatient Program: [facility]
--- NOTE | 2016-10-10 11:46 | PN ---
MHU: Group Therapy Note - Service Type Service Type: [id number] Group Psychotherapy - Cognitive Behavioral Group Therapy ( CBT):Patient was attentive and participatory in CBT programming this morning, and remained in good behavioral control. Patient expressed positive insights regarding relevant treatment interventions and goals.
[2016-10-10] MEDS: cloNIDine TAB* 0.1 MG PO SCH (20:35)
[2016-10-10] MEDS: Zolpidem TAB* 5 MG PO SCH (20:35)
[2016-10-11] MEDS: Al Hydrox/Mg Hydrox/Simet LIQ* 30 ML UDC PO PRN (07:16)
[2016-10-11] MEDS: DULoxetine DR CAP* 30 MG CAP.DR PO SCH (08:11)
[2016-10-11] MEDS: Ziprasidone * 20 MG CAP (generic Geodon) PO SCH (08:11)
[2016-10-11] MEDS: Levothyroxine TAB* 50 MCG TAB PO SCH (08:11)
[2016-10-11] MEDS: Ziprasidone CAP* 80 MG PO SCH (08:12)
[2016-10-11] MEDS: Dicyclomine CAP* 10 MG PO SCH ×4 (08:12→20:34)
[2016-10-11] MEDS: Omeprazole CAP* 20 MG PO SCH (08:13)
[2016-10-11] MEDS: Cetirizine* 10 MG TAB PO SCH (08:14)
[2016-10-11] MEDS: Topiramate TAB(*) 100 MG PO SCH (08:14)
[2016-10-11] MEDS: Vitamin THERAPEUTIC TAB PO SCH (08:14)
[2016-10-11] MEDS: Tamsulosin CAP* 0.4 MG PO SCH (08:14)
--- NOTE | 2016-10-11 18:39 | PN ---
Subjective - Subjective Service Type: 39520 Hosp care 15 min low complexity Subjective: Sonia reports of feeling much better both physically and emotionally. Now he understands that if he kills himself it will be bad for his family. Also understands that his abdominal pain is related to his emotions. Complaining og poor sleep with frequent waking up. Not suicidal anymore. Objective - Appearance Appearance: Healthy Appearing Dysmorphic Features: No Hygiene: Mal-odorous Grooming: Disheveled - Behavior Psychomotor Activities: Normal Exhibits Abnormal Movement: No - Attitude and Relatedness Attitude and Relatedness: Appropriate Eye Contact: Fair - Speech Quality: Unpressured Latencies: Normal Quantity: Terse - Mood Patient's Decription of Mood: "Fine" - Affect Observed Affect: Non-labile - Thought Process Patient's Thought Process: Coherent, Goal Directed Thought Content: No Passive Wish, No Suicidal Planning, No Homicidal Ideation, No Paranoid Ideation - Sensorium Experiencing Hallucinations: No, Sensorium is Clear Type of Hallucinations: Visual: No, Auditory: No, Command: No - Level of Consciousness Level of Consciousness: Alert Orientation: Yes Intact, Yes Orientated to Time, Yes Orientated to Place, Yes Orientated to Person - Impulse Control Impulse Control: Intact - Insight and Judgement Insight and Judgement: Fair - Group Participation Particating in Group Activities: Yes - Medication Management Medication Management Adherence: Yes Assessment - Assessment Merits Inpatient Hospitalization: Consolidate Improvements, For Discharge Planning Inpatient DSM-IV Dx: PTSD. Depressive Disorder. Personality Disorder Plan - Plan Treatment Plan: Name: SONIA MONDRAGON Birthdate: 1965 [id number] Continued Medication Management: Continue Outpt Medication Medications: Current Medications Acetaminophen (Tylenol Tab*) 650 mg PO Q4H PRN PRN Reason: for pain; or Temp >101 F Last Admin: 10/08/16 16:32 Dose: 650 mg Al Hydrox/Mg Hydrox/Simethicone (Maalox Plus*) 10 ml PO BID PRN PRN Reason: NAUSEA/VOMITING Last Admin: 10/11/16 07:16 Dose: 10 ml Cetirizine HCl (Zyrtec*) 10 mg PO DAILY [facility] Last Admin: 10/11/16 08:14 Dose: 10 mg Clonidine HCl (Catapres Tab*) 0.3 mg PO BEDTIME [facility] Last Admin: 10/10/16 20:35 Dose: 0.3 mg Device (Nicotine Mouth Piece*) 1 each INH ONCE PRN PRN Reason: CRAVINGS Dicyclomine HCl (Bentyl Cap*) 20 mg PO ACHS [facility] Last Admin: 10/11/16 16:39 Dose: 20 mg Duloxetine HCl (Cymbalta Cap*) 30 mg PO DAILY [facility] Last Admin: 10/11/16 08:11 Dose: 30 mg Ergocalciferol (Drisdol Cap*) 50,000 unit PO MONTHLY [facility] Levothyroxine Sodium (Synthroid Tab*) 50 mcg PO 0600 [facility] Last Admin: 10/11/16 08:11 Dose: 50 mcg Multivitamins (Theragran Tab*) 1 tab PO DAILY [facility] Last Admin: 10/11/16 08:14 Dose: 1 tab Nicotine (Nicotine Inhaler*) 10 mg INH Q2H PRN PRN Reason: CRAVING Omeprazole (Prilosec Cap*) 20 mg PO DAILY [facility] Last Admin: 10/11/16 08:13 Dose: 20 mg Promethazine HCl (Phenergan Tab*) 25 mg PO Q8H PRN PRN Reason: NAUSEA Last Admin: 10/08/16 12:53 Dose: 25 mg Tamsulosin HCl (Flomax Cap*) 0.4 mg PO QAM [facility] Last Admin: 10/11/16 08:14 Dose: 0.4 mg Topiramate (Topamax(*)) 100 mg PO DAILY [facility] Last Admin: 10/11/16 08:14 Dose: 100 mg Ziprasidone (Geodon (Generic) *) 40 mg PO DAILY [facility] Last Admin: 10/11/16 08:11 Dose: 40 mg Ziprasidone (Geodon Cap*) 160 mg PO DAILY [facility] Last Admin: 10/11/16 08:12 Dose: 160 mg Zolpidem Tartrate (Ambien Tab*) 5 mg PO BEDTIME [facility] Last Admin: 10/10/16 20:35 Dose: 5 mg - Discharge Plan Discharge Plan: Outpatient Follow Up Outpatient Program: [facility] P[facility]
[2016-10-11] MEDS: Zolpidem TAB* 5 MG PO SCH (20:33)
[2016-10-11] MEDS: cloNIDine TAB* 0.1 MG PO SCH (20:33)
[2016-10-12] MEDS: Levothyroxine TAB* 50 MCG TAB PO SCH (05:46)
[2016-10-12] MEDS: Al Hydrox/Mg Hydrox/Simet LIQ* 30 ML UDC PO PRN (07:18)
[2016-10-12] MEDS: Dicyclomine CAP* 10 MG PO SCH ×4 (07:30→20:34)
[2016-10-12] MEDS: Ziprasidone CAP* 80 MG PO SCH (08:28)
[2016-10-12] MEDS: Ziprasidone * 20 MG CAP (generic Geodon) PO SCH (08:28)
[2016-10-12] MEDS: Vitamin THERAPEUTIC TAB PO SCH (08:29)
[2016-10-12] MEDS: Cetirizine* 10 MG TAB PO SCH (08:29)
[2016-10-12] MEDS: Topiramate TAB(*) 100 MG PO SCH (08:29)
[2016-10-12] MEDS: Tamsulosin CAP* 0.4 MG PO SCH (08:29)
[2016-10-12] MEDS: DULoxetine DR CAP* 30 MG CAP.DR PO SCH (08:30)
[2016-10-12] MEDS: Omeprazole CAP* 20 MG PO SCH (08:30)
[2016-10-12] MEDS: cloNIDine TAB* 0.1 MG PO SCH (20:35)
[2016-10-12] MEDS: Zolpidem TAB* 5 MG PO SCH (20:35)
[2016-10-13] MEDS: Levothyroxine TAB* 50 MCG TAB PO SCH (06:25)
[2016-10-13] MEDS: Al Hydrox/Mg Hydrox/Simet LIQ* 30 ML UDC PO PRN ×3 (06:45→18:57)
[2016-10-13] MEDS: Dicyclomine CAP* 10 MG PO SCH ×4 (07:26→20:48)
[2016-10-13] MEDS: Vitamin THERAPEUTIC TAB PO SCH (08:12)
[2016-10-13] MEDS: DULoxetine DR CAP* 30 MG CAP.DR PO SCH (08:12)
[2016-10-13] MEDS: Ziprasidone * 20 MG CAP (generic Geodon) PO SCH (08:13)
[2016-10-13] MEDS: Omeprazole CAP* 20 MG PO SCH (08:14)
[2016-10-13] MEDS: Tamsulosin CAP* 0.4 MG PO SCH (08:14)
[2016-10-13] MEDS: Topiramate TAB(*) 100 MG PO SCH (08:14)
[2016-10-13] MEDS: Ziprasidone CAP* 80 MG PO SCH (08:14)
[2016-10-13] MEDS: Cetirizine* 10 MG TAB PO SCH (08:15)
--- NOTE | 2016-10-13 11:08 | PN ---
MHU: Group Therapy Note - Service Type Service Type: [id number] Group Psychotherapy - Cognitive Behavioral Group Therapy ( CBT):Patient attended CBT programming this morning and presented with flat affect that did not vary with discussion. Although responsive to direct prompts to respond to questions, patient did not engage in spontaneous conversation.
--- NOTE | 2016-10-13 16:13 | PN ---
Subjective - Subjective Service Type: 38957 Hosp care 15 min low complexity Subjective: Mr Banegas today reports abdominal pain 4/10, saying a good day is 1 or 2, and remission of SI. He reports that he may be feeling safe for discharge home tomorrow. He reports "pretty good" mood. Social work reports she has had no response from Cee Mcconnell of apartment program at [place], who coordinates his current program there. Objective - Appearance Appearance: Well Developed/Nourished Dysmorphic Features: No Hygiene: Normal Grooming: Fairly Well Kept - Behavior Psychomotor Activities: Normal Exhibits Abnormal Movement: No - Attitude and Relatedness Attitude and Relatedness: Cooperative Eye Contact: Fair - Speech Quality: Unpressured Latencies: Normal Quantity: Terse - Mood Patient's Decription of Mood: "Good" - Affect Observed Affect: Depressed Affect Consistent with: Dysphoria - chronic, mild - Thought Process Patient's Thought Process: Coherent, Goal Directed, Impoverished Thought Content: No Passive Wish, No Suicidal Planning, No Homicidal Ideation, No Paranoid Ideation - Sensorium Experiencing Hallucinations: No, Sensorium is Clear Type of Hallucinations: Visual: No, Auditory: No, Command: No - Level of Consciousness Level of Consciousness: Alert Orientation: Yes Intact, Yes Orientated to Time, Yes Orientated to Place, Yes Orientated to Person - Impulse Control Impulse Control: Intact - Insight and Judgement Insight and Judgement: Poor - chronically - Group Participation Particating in Group Activities: Yes Group Participation Comments: about half - Medication Management Medication Management Adherence: Yes Assessment - Assessment Merits Inpatient Hospitalization: Consolidate Improvements, For Discharge Planning Inpatient DSM-IV Dx: PTSD. Depressive Disorder. Personality Disorder Clinical Impression: 2.22.17 Sonia Banegas presents now in a very similar fashion to prior presentations here , with report of intolerable abdominal pain accompanied by recrudescence of PTSD symptoms. He is seeking opiate analgesia for the abdominal pain. He had presented several times in the past few days and weeks to the emergency department with complaint of abdominal pain and had been sent home for outpatient follow-up. He came back on this occasion with a sublethal suicide attempt on seven to eight Geodon and superficial cutting on his abdomen. He was medically cleared in the ED. We will be having a hospitalist see him about the abdominal pain and follow their recommendations. It may also be that his complaint of abdominal pain is psychogenic, related to his PTSD symptoms. We will be encouraging him to make use of the safety of the therapeutic milieu and groups. We will be exploring the possibility of placement into a senior care as he has requested. We will continue his outpatient medication regimen. Resolution of his suicidality will be criterion for discharge, which may be to some form of interim housing toward ultimate placement into a group living facility, which may take weeks to come to fruition. 2.23.17 Sonia reports some improvement of mood today alongside reduced abdominal pain. He reports also reduced thoughts of suicide. He says he does not yet feel safe to discharge today. 2.24.17 Sonia reports good mood and remission of SI on the unit, with reduced rating of abdominal pain. He is not attending groups. He seeks discharge directly to a group living arrangement as he says he is unsafe in his current housing, as he demonstrated with suicide attempt or suicidal gesture. 2..17 Sonia reluctantly agrees to prepare for discharge tomorrow. He reports remission of SI, and improved abdominal pain. Report from the health social work professor on the case is that [facility] has not returned calls pursuing placement into group living facility. Plan - Plan Treatment Plan: Name: SONIA BANEGAS Birthdate: 1965 [id number] Continue current meds. Monitor MS and safety. Encourage groups and milieu. Discharge to followup care already in place when SI remitted. Now less resistant to return to home, but still seeks group living arrangement: social work addressing this request. Plan for discharge home tomorrow. Continued Medication Management: Continue Outpt Medication Medications: Current Medications Acetaminophen (Tylenol Tab*) 650 mg PO Q4H PRN PRN Reason: for pain; or Temp >101 F Last Admin: 10/08/16 16:32 Dose: 650 mg Al Hydrox/Mg Hydrox/Simethicone (Maalox Plus*) 10 ml PO BID PRN PRN Reason: NAUSEA/VOMITING Last Admin: 10/13/16 15:07 Dose: 10 ml Cetirizine HCl (Zyrtec*) 10 mg PO DAILY [facility] Last Admin: 10/13/16 08:15 Dose: 10 mg Clonidine HCl (Catapres Tab*) 0.3 mg PO BEDTIME [facility] Last Admin: 10/12/16 20:35 Dose: 0.3 mg Device (Nicotine Mouth Piece*) 1 each INH ONCE PRN PRN Reason: CRAVINGS Dicyclomine HCl (Bentyl Cap*) 20 mg PO ACHS [facility] Last Admin: 10/13/16 13:28 Dose: Not Given Duloxetine HCl (Cymbalta Cap*) 30 mg PO DAILY [facility] Last Admin: 10/13/16 08:12 Dose: 30 mg Ergocalciferol (Drisdol Cap*) 50,000 unit PO MONTHLY [facility] Levothyroxine Sodium (Synthroid Tab*) 50 mcg PO 0600 [facility] Last Admin: 10/13/16 06:25 Dose: 50 mcg Multivitamins (Theragran Tab*) 1 tab PO DAILY [facility] Last Admin: 10/13/16 08:12 Dose: 1 tab Nicotine (Nicotine Inhaler*) 10 mg INH Q2H PRN PRN Reason: CRAVING Omeprazole (Prilosec Cap*) 20 mg PO DAILY [facility] Last Admin: 10/13/16 08:14 Dose: 20 mg Promethazine HCl (Phenergan Tab*) 25 mg PO Q8H PRN PRN Reason: NAUSEA Last Admin: 10/08/16 12:53 Dose: 25 mg Tamsulosin HCl (Flomax Cap*) 0.4 mg PO QAM [facility] Last Admin: 10/13/16 08:14 Dose: 0.4 mg Topiramate (Topamax(*)) 100 mg PO DAILY [facility] Last Admin: 10/13/16 08:14 Dose: 100 mg Ziprasidone (Geodon (Generic) *) 40 mg PO DAILY [facility] Last Admin: 10/13/16 08:13 Dose: 40 mg Ziprasidone (Geodon Cap*) 160 mg PO DAILY [facility] Last Admin: 10/13/16 08:14 Dose: 160 mg Zolpidem Tartrate (Ambien Tab*) 5 mg PO BEDTIME [facility] Last Admin: 10/12/16 20:35 Dose: 5 mg - Discharge Plan Discharge Plan: Outpatient [facility]
[2016-10-13] MEDS: cloNIDine TAB* 0.1 MG PO SCH (20:48)
[2016-10-13] MEDS: Zolpidem TAB* 5 MG PO SCH (20:49)
[2016-10-14] MEDS: Levothyroxine TAB* 50 MCG TAB PO SCH (05:34)
[2016-10-14] MEDS: Acetaminophen TAB* 325 MG PO PRN (06:20)
[2016-10-14] MEDS: Ziprasidone * 20 MG CAP (generic Geodon) PO SCH (08:33)
[2016-10-14] MEDS: Dicyclomine CAP* 10 MG PO SCH ×4 (08:33→20:45)
[2016-10-14] MEDS: Omeprazole CAP* 20 MG PO SCH (08:34)
[2016-10-14] MEDS: Tamsulosin CAP* 0.4 MG PO SCH (08:34)
[2016-10-14] MEDS: Vitamin THERAPEUTIC TAB PO SCH (08:34)
[2016-10-14] MEDS: Topiramate TAB(*) 100 MG PO SCH (08:34)
[2016-10-14] MEDS: Ziprasidone CAP* 80 MG PO SCH (08:34)
[2016-10-14] MEDS: Cetirizine* 10 MG TAB PO SCH (08:34)
[2016-10-14] MEDS: DULoxetine DR CAP* 30 MG CAP.DR PO SCH (08:34)
--- NOTE | 2016-10-14 11:59 | PN ---
MHU: Group Therapy Note - Service Type Service Type: [id number] Group Psychotherapy - Cognitive Behavioral Group Therapy ( CBT):Patient attended CBT programming this morning and presented with flat affect that did not vary with discussion. Although responsive to direct prompts to respond to questions, patient did not engage in spontaneous conversation.
[2016-10-14] MEDS: cloNIDine TAB* 0.1 MG PO SCH (20:45)
[2016-10-14] MEDS: Zolpidem TAB* 5 MG PO SCH (20:46)
[2016-10-15] MEDS: Al Hydrox/Mg Hydrox/Simet LIQ* 30 ML UDC PO PRN (02:20)
[2016-10-15] MEDS: Promethazine TAB* 25 MG PO PRN (04:51)
[2016-10-15] MEDS: Levothyroxine TAB* 50 MCG TAB PO SCH (05:58)
[2016-10-15] MEDS: Dicyclomine CAP* 10 MG PO SCH ×4 (07:29→20:21)
[2016-10-15] MEDS: Vitamin THERAPEUTIC TAB PO SCH (08:19)
[2016-10-15] MEDS: Ziprasidone CAP* 80 MG PO SCH (08:19)
[2016-10-15] MEDS: DULoxetine DR CAP* 30 MG CAP.DR PO SCH (08:19)
[2016-10-15] MEDS: Ziprasidone * 20 MG CAP (generic Geodon) PO SCH (08:20)
[2016-10-15] MEDS: Cetirizine* 10 MG TAB PO SCH (08:20)
[2016-10-15] MEDS: Tamsulosin CAP* 0.4 MG PO SCH (08:20)
[2016-10-15] MEDS: Topiramate TAB(*) 100 MG PO SCH (08:21)
[2016-10-15] MEDS: Omeprazole CAP* 20 MG PO SCH (08:21)
--- NOTE | 2016-10-15 09:05 | PN ---
Subjective - Subjective Service Type: [id number] Hosp care 15 min low complexity Subjective: Sonia scratched his abdomen with a spoon. He reports CAH to harm himself. He is afraid he will kill himself by OD on meds if he returns home. He reports feeling unsafe from others in a vague sense, no specific concerns. Objective - Appearance Appearance: Well Developed/Nourished Dysmorphic Features: No Hygiene: Normal Grooming: Fairly Well Kept - Behavior Psychomotor Activities: Normal Exhibits Abnormal Movement: No - Attitude and Relatedness Attitude and Relatedness: Cooperative Eye Contact: Fair - Speech Quality: Unpressured Latencies: Normal Quantity: Appropriate - Mood Patient's Decription of Mood: "Not good" - Affect Observed Affect: Depressed Affect Consistent with: Dysphoria - Thought Process Patient's Thought Process: Coherent, Goal Directed Thought Content: Yes Passive Wish, Yes Suicidal Planning, Yes Paranoid Ideation, No Homicidal Ideation - Sensorium Experiencing Hallucinations: Yes Type of Hallucinations: Visual: No, Auditory: Yes, Command: Yes - Level of Consciousness Level of Consciousness: Alert Orientation: Yes Intact, Yes Orientated to Time, Yes Orientated to Place, Yes Orientated to Person - Impulse Control Impulse Control: Tenuous - Insight and Judgement Insight and Judgement: Impaired - Group Participation Particating in Group Activities: No - Medication Management Medication Management Adherence: Yes Assessment - Assessment Merits Inpatient Hospitalization: For Immediate Safety, For Stabilization, For Discharge Planning Inpatient DSM-IV Dx: PTSD. Depressive Disorder. Personality Disorder Clinical Impression: 2.22.17 Sonia Banegas presents now in a very similar fashion to prior presentations here , with report of intolerable abdominal pain accompanied by recrudescence of PTSD symptoms. He is seeking opiate analgesia for the abdominal pain. He had presented several times in the past few days and weeks to the emergency department with complaint of abdominal pain and had been sent home for outpatient follow-up. He came back on this occasion with a sublethal suicide attempt on seven to eight Geodon and superficial cutting on his abdomen. He was medically cleared in the ED. We will be having a hospitalist see him about the abdominal pain and follow their recommendations. It may also be that his complaint of abdominal pain is psychogenic, related to his PTSD symptoms. We will be encouraging him to make use of the safety of the therapeutic milieu and groups. We will be exploring the possibility of placement into a assisted as he has requested. We will continue his outpatient medication regimen. Resolution of his suicidality will be criterion for discharge, which may be to some form of interim housing toward ultimate placement into a group living facility, which may take weeks to come to fruition. 2..17 Sonia reports some improvement of mood today alongside reduced abdominal pain. He reports also reduced thoughts of suicide. He says he does not yet feel safe to discharge today. 2.17 Sonia reports good mood and remission of SI on the unit, with reduced rating of abdominal pain. He is not attending groups. He seeks discharge directly to a group living arrangement as he says he is unsafe in his current housing, as he demonstrated with suicide attempt or suicidal gesture. 2.17 Sonia reluctantly agrees to prepare for discharge tomorrow. He reports remission of SI, and improved abdominal pain. Report from the outreach and education social worker on the case is that [place] has not returned calls pursuing placement into group living facility. 3.1.17 Sonia today reports that he has renewed SI and CAH, and he cut superficially on his abdomen with a plastic spoon. He must remain in hospital until safety concerns are resolved adequately. He requests Klonopin PRN to address anxiety. [place] through [employer] Ms Mooer that Sonia has lost VNS due to self- injury demonstrated to VN. Plan - Plan Treatment Plan: Name: SONIA BANEGAS Birthdate: 1965 [id number] Continue current meds with PRN Klonopin. Monitor MS and safety. Encourage groups and milieu. Now less resistant to return to home, but still seeks group living arrangement: social work addressing this request. Plan for discharge home delayed by lack of VNS services, renewed dangerous intent/plan. Continued Medication Management: Continue Outpt Medication Medications: Current Medications Acetaminophen (Tylenol Tab*) 650 mg PO Q4H PRN PRN Reason: for pain; or Temp >101 F Last Admin: 10/14/16 06:20 Dose: 650 mg Al Hydrox/Mg Hydrox/Simethicone (Maalox Plus*) 10 ml PO BID PRN PRN Reason: NAUSEA/VOMITING Last Admin: 10/15/16 02:20 Dose: 10 ml Cetirizine HCl (Zyrtec*) 10 mg PO DAILY [facility] Last Admin: 10/15/16 08:20 Dose: 10 mg Clonidine HCl (Catapres Tab*) 0.3 mg PO BEDTIME [facility] Last Admin: 10/14/16 20:45 Dose: 0.3 mg Device (Nicotine Mouth Piece*) 1 each INH ONCE PRN PRN Reason: CRAVINGS Dicyclomine HCl (Bentyl Cap*) 20 mg PO ACHS [facility] Last Admin: 10/15/16 07:29 Dose: 20 mg Duloxetine HCl (Cymbalta Cap*) 30 mg PO DAILY [facility] Last Admin: 10/15/16 08:19 Dose: 30 mg Ergocalciferol (Drisdol Cap*) 50,000 unit PO MONTHLY [facility] Levothyroxine Sodium (Synthroid Tab*) 50 mcg PO 0600 [facility] Last Admin: 10/15/16 05:58 Dose: 50 mcg Multivitamins (Theragran Tab*) 1 tab PO DAILY [facility] Last Admin: 10/15/16 08:19 Dose: 1 tab Nicotine (Nicotine Inhaler*) 10 mg INH Q2H PRN PRN Reason: CRAVING Omeprazole (Prilosec Cap*) 20 mg PO DAILY [facility] Last Admin: 10/15/16 08:21 Dose: 20 mg Promethazine HCl (Phenergan Tab*) 25 mg PO Q8H PRN PRN Reason: NAUSEA Last Admin: 10/15/16 04:51 Dose: 25 mg Tamsulosin HCl (Flomax Cap*) 0.4 mg PO QAM [facility] Last Admin: 10/15/16 08:20 Dose: 0.4 mg Topiramate (Topamax(*)) 100 mg PO DAILY [facility] Last Admin: 10/15/16 08:21 Dose: 100 mg Ziprasidone (Geodon (Generic) *) 40 mg PO DAILY [facility] Last Admin: 10/15/16 08:20 Dose: 40 mg Ziprasidone (Geodon Cap*) 160 mg PO DAILY [facility] Last Admin: 10/15/16 08:19 Dose: 160 mg Zolpidem Tartrate (Ambien Tab*) 5 mg PO BEDTIME [facility] Last Admin: 10/14/16 20:46 Dose: 5 mg - Discharge Plan Discharge Plan: Outpatient Follow Up Outpatient Program: [facility]
[2016-10-15] MEDS: clonazePAM TAB(*) 0.5 MG PO PRN (14:06)
[2016-10-15] MEDS: Zolpidem TAB* 5 MG PO SCH (20:22)
[2016-10-15] MEDS: cloNIDine TAB* 0.1 MG PO SCH (20:22)
[2016-10-16] MEDS: Levothyroxine TAB* 50 MCG TAB PO SCH (05:56)
[2016-10-16] MEDS: Dicyclomine CAP* 10 MG PO SCH ×4 (07:37→20:29)
[2016-10-16] MEDS: Omeprazole CAP* 20 MG PO SCH (08:30)
[2016-10-16] MEDS: Cetirizine* 10 MG TAB PO SCH (08:30)
[2016-10-16] MEDS: DULoxetine DR CAP* 30 MG CAP.DR PO SCH (08:30)
[2016-10-16] MEDS: Vitamin THERAPEUTIC TAB PO SCH (08:30)
[2016-10-16] MEDS: Ziprasidone * 20 MG CAP (generic Geodon) PO SCH (08:31)
[2016-10-16] MEDS: Tamsulosin CAP* 0.4 MG PO SCH (08:31)
[2016-10-16] MEDS: Topiramate TAB(*) 100 MG PO SCH (08:31)
[2016-10-16] MEDS: Ziprasidone CAP* 80 MG PO SCH (08:32)
[2016-10-16] MEDS: Acetaminophen TAB* 325 MG PO PRN (09:44)
--- NOTE | 2016-10-16 14:08 | PN ---
Subjective - Subjective Service Type: 97037 Hosp care 15 min low complexity Subjective: Sonia has been reporting to nursing depression, anxiety and vague SI. He told me he has 'a little bit' of SIB urge to cut his abdomen, but will come to staff before he acts on this. He reports continued moderate abdominal pain rated 4/10 (had been 9/10 on admission, has been 1 or 2/10 when doing well). Agrees with plan to go to [facility] for [employer] care due to increased safety concerns on this admission, lack of VNS and group living facility that he needs for safety outside the hospital, and numerous acute psychiatric hospitalizations in past few months. Objective - Appearance Appearance: Well Developed/Nourished Dysmorphic Features: No Hygiene: Normal Grooming: Fairly Well Kept - Behavior Psychomotor Activities: Abnormal-Decreased - spending more time in bed - Attitude and Relatedness Attitude and Relatedness: Cooperative Eye Contact: Fair - Speech Quality: Unpressured Latencies: Normal Quantity: Terse - Mood Patient's Decription of Mood: "Depressed" - Affect Observed Affect: Depressed Affect Consistent with: Dysphoria - Thought Process Patient's Thought Process: Coherent, Goal Directed Thought Content: No Passive Wish, No Suicidal Planning - only SIB urges at this time, No Homicidal Ideation, No Paranoid Ideation - Sensorium Experiencing Hallucinations: No, Sensorium is Clear Type of Hallucinations: Visual: No, Auditory: No, Command: No - Level of Consciousness Level of Consciousness: Alert Orientation: Yes Intact, Yes Orientated to Time, Yes Orientated to Place, Yes Orientated to Person - Impulse Control Impulse Control: Tenuous - Insight and Judgement Insight and Judgement: Poor - Group Participation Particating in Group Activities: Yes Group Participation Comments: but few - Medication Management Medication Management Adherence: Yes Assessment - Assessment Merits Inpatient Hospitalization: For Immediate Safety, For Stabilization, For Discharge Planning Inpatient DSM-IV Dx: PTSD. Depressive Disorder. Personality Disorder Clinical Impression: 2.22.17 Sonia Banegas presents now in a very similar fashion to prior presentations here , with report of intolerable abdominal pain accompanied by recrudescence of PTSD symptoms. He is seeking opiate analgesia for the abdominal pain. He had presented several times in the past few days and weeks to the emergency department with complaint of abdominal pain and had been sent home for outpatient follow-up. He came back on this occasion with a sublethal suicide attempt on seven to eight Geodon and superficial cutting on his abdomen. He was medically cleared in the ED. We will be having a hospitalist see him about the abdominal pain and follow their recommendations. It may also be that his complaint of abdominal pain is psychogenic, related to his PTSD symptoms. We will be encouraging him to make use of the safety of the therapeutic milieu and groups. We will be exploring the possibility of placement into a nursing home as he has requested. We will continue his outpatient medication regimen. Resolution of his suicidality will be criterion for discharge, which may be to some form of interim housing toward ultimate placement into a group living facility, which may take weeks to come to fruition. 2.23.17 Sonia reports some improvement of mood today alongside reduced abdominal pain. He reports also reduced thoughts of suicide. He says he does not yet feel safe to discharge today. 2.24.17 Sonia reports good mood and remission of SI on the unit, with reduced rating of abdominal pain. He is not attending groups. He seeks discharge directly to a group living arrangement as he says he is unsafe in his current housing, as he demonstrated with suicide attempt or suicidal gesture. 2.27.17 Sonia reluctantly agrees to prepare for discharge tomorrow. He reports remission of SI, and improved abdominal pain. Report from the social work assistant on the case is that [place] has not returned calls pursuing placement into group living facility. 3.1.17 Sonia today reports that he has renewed SI and CAH, and he cut superficially on his abdomen with a plastic spoon. He must remain in hospital until safety concerns are resolved adequately. He requests Klonopin PRN to address anxiety. [place] through Residential Program Director Ms Moore that Sonia has lost VNS due to self- injury demonstrated to VN. 3.2.17 Sonia reports today remission of SI/CAH, with only SIB urge. He agrees to transfer to [facility]. He is med, meal, and partially group compliant. Plan - Plan Treatment Plan: Name: SONIA BANEGAS Birthdate: 1965 [id number] Continue current meds with PRN Klonopin. Monitor MS and safety. Encourage groups and milieu. With lack of support services, particularly VNS, and increased dangerous intent/plan on this admission, and numerous admissions in recent months, we are tracking Sonia to [facility] care at [facility] to achieve greater stability and to arrange from there for increased services to maintain safety, with ideally placement into group living facility that will include either from the residential program or from VNS safe management of medications, which he now says he is having thoughts to OD on. Medications: Current Medications Acetaminophen (Tylenol Tab*) 650 mg PO Q4H PRN PRN Reason: for pain; or Temp >101 F Last Admin: 10/16/16 09:44 Dose: 650 mg Al Hydrox/Mg Hydrox/Simethicone (Maalox Plus*) 10 ml PO BID PRN PRN Reason: NAUSEA/VOMITING Last Admin: 10/15/16 02:20 Dose: 10 ml Cetirizine HCl (Zyrtec*) 10 mg PO DAILY [facility] Last Admin: 10/16/16 08:30 Dose: 10 mg Clonazepam (Klonopin Tab(*)) 0.5 mg PO BID PRN PRN Reason: ANXIETY Last Admin: 10/15/16 14:06 Dose: 0.5 mg Clonidine HCl (Catapres Tab*) 0.3 mg PO BEDTIME [facility] Last Admin: 10/15/16 20:22 Dose: 0.3 mg Device (Nicotine Mouth Piece*) 1 each INH ONCE PRN PRN Reason: CRAVINGS Dicyclomine HCl (Bentyl Cap*) 20 mg PO ACHS [facility] Last Admin: 10/16/16 11:43 Dose: 20 mg Duloxetine HCl (Cymbalta Cap*) 30 mg PO DAILY [facility] Last Admin: 10/16/16 08:30 Dose: 30 mg Ergocalciferol (Drisdol Cap*) 50,000 unit PO MONTHLY [facility] Levothyroxine Sodium (Synthroid Tab*) 50 mcg PO 0600 [facility] Last Admin: 10/16/16 05:56 Dose: 50 mcg Multivitamins (Theragran Tab*) 1 tab PO DAILY [facility] Last Admin: 10/16/16 08:30 Dose: 1 tab Nicotine (Nicotine Inhaler*) 10 mg INH Q2H PRN PRN Reason: CRAVING Omeprazole (Prilosec Cap*) 20 mg PO DAILY [facility] Last Admin: 10/16/16 08:30 Dose: 20 mg Promethazine HCl (Phenergan Tab*) 25 mg PO Q8H PRN PRN Reason: NAUSEA Last Admin: 10/15/16 04:51 Dose: 25 mg Tamsulosin HCl (Flomax Cap*) 0.4 mg PO QAM [facility] Last Admin: 10/16/16 08:31 Dose: 0.4 mg Topiramate (Topamax(*)) 100 mg PO DAILY [facility] Last Admin: 10/16/16 08:31 Dose: 100 mg Ziprasidone (Geodon (Generic) *) 40 mg PO DAILY [facility] Last Admin: 10/16/16 08:31 Dose: 40 mg Ziprasidone (Geodon Cap*) 160 mg PO DAILY [facility] Last Admin: 10/16/16 08:32 Dose: 160 mg Zolpidem Tartrate (Ambien Tab*) 5 mg PO BEDTIME [facility] Last Admin: 10/15/16 20:22 Dose: 5 mg - Discharge Plan Discharge Plan: Consider Longer Term Tx
[2016-10-16] MEDS: clonazePAM TAB(*) 0.5 MG PO PRN (19:51)
[2016-10-16] MEDS: cloNIDine TAB* 0.1 MG PO SCH (20:29)
[2016-10-16] MEDS: Zolpidem TAB* 5 MG PO SCH (20:29)
[2016-10-17] MEDS: Levothyroxine TAB* 50 MCG TAB PO SCH (07:17)
[2016-10-17] MEDS: Dicyclomine CAP* 10 MG PO SCH ×4 (07:35→21:00)
[2016-10-17] MEDS: Al Hydrox/Mg Hydrox/Simet LIQ* 30 ML UDC PO PRN (07:41)
[2016-10-17] MEDS: Cetirizine* 10 MG TAB PO SCH (08:08)
[2016-10-17] MEDS: DULoxetine DR CAP* 30 MG CAP.DR PO SCH (08:09)
[2016-10-17] MEDS: Vitamin THERAPEUTIC TAB PO SCH (08:09)
[2016-10-17] MEDS: Omeprazole CAP* 20 MG PO SCH (08:09)
[2016-10-17] MEDS: Topiramate TAB(*) 100 MG PO SCH (08:09)
[2016-10-17] MEDS: Tamsulosin CAP* 0.4 MG PO SCH (08:09)
[2016-10-17] MEDS: Ziprasidone * 20 MG CAP (generic Geodon) PO SCH (08:10)
[2016-10-17] MEDS: Ziprasidone CAP* 80 MG PO SCH (08:11)
[2016-10-17] MEDS: clonazePAM TAB(*) 0.5 MG PO PRN (08:31)
--- NOTE | 2016-10-17 12:49 | PN ---
Subjective - Subjective Service Type: 54054 Hosp care 15 min low complexity Subjective: Sonia reports "it's not good," noting "voices" and re-experiencing, dysphoria , self harm urges, and some suicidal thoughts. He has been vocal with us and agrees with staying in the common area and visible if feeling badly. Objective - Appearance Appearance: Well Developed/Nourished Hygiene: Normal Grooming: Disheveled - Behavior Psychomotor Activities: Abnormal-Decreased - Attitude and Relatedness Attitude and Relatedness: Cooperative Eye Contact: Good - Speech Quality: Unpressured Latencies: Normal Quantity: Terse - Mood Patient's Decription of Mood: "Terrible" - Affect Observed Affect: Constricted Affect Consistent with: Dysphoria - Thought Process Patient's Thought Process: Impoverished Thought Content: Yes Passive Wish, No Suicidal Planning, No Homicidal Ideation, No Paranoid Ideation - Sensorium Experiencing Hallucinations: No, Sensorium is Clear - Level of Consciousness Level of Consciousness: Alert - Impulse Control Impulse Control: Tenuous - Insight and Judgement Insight and Judgement: Fair Assessment - Assessment Inpatient DSM-IV Dx: PTSD. Depressive Disorder. Personality Disorder Clinical Impression: 50-year-old mentally disabled male with a history of PTSD, dissociative symptoms , personality disorder, depressive disorder, atypical perceptual disturbances, and many psychiatric hospitalizations. He presented with suicidal behaviora and self cutting, reporting an increase in re-experiencing symptom around prior trauma. He continues symptomatic, with distress, suicidal ideation, and has fashioned some plastic self harm devices out of utensils. Favorably he is vocal about distress and symptoms, and engagement is intact. Medmgt: continue regimen, increase Cymbalta to 60mg. Have referred to [facility] due to pattern of decompensations/admissions and ongoing symptoms. Plan - Plan Treatment Plan: Name: SONIA MONDRAGON Birthdate: 1965 [id number] Continued Medication Management: Continue Outpt Medication Medications: Current Medications Acetaminophen (Tylenol Tab*) 650 mg PO Q4H PRN PRN Reason: for pain; or Temp >101 F Last Admin: 10/16/16 09:44 Dose: 650 mg Al Hydrox/Mg Hydrox/Simethicone (Maalox Plus*) 10 ml PO BID PRN PRN Reason: NAUSEA/VOMITING Last Admin: 10/17/16 07:41 Dose: 10 ml Cetirizine HCl (Zyrtec*) 10 mg PO DAILY [facility] Last Admin: 10/17/16 08:08 Dose: 10 mg Clonazepam (Klonopin Tab(*)) 0.5 mg PO BID PRN PRN Reason: ANXIETY Last Admin: 10/17/16 08:31 Dose: 0.5 mg Clonidine HCl (Catapres Tab*) 0.3 mg PO BEDTIME [facility] Last Admin: 10/16/16 20:29 Dose: 0.3 mg Device (Nicotine Mouth Piece*) 1 each INH ONCE PRN PRN Reason: CRAVINGS Dicyclomine HCl (Bentyl Cap*) 20 mg PO ACHS [facility] Last Admin: 10/17/16 12:04 Dose: 20 mg Duloxetine HCl (Cymbalta Cap*) 60 mg PO DAILY [facility] Ergocalciferol (Drisdol Cap*) 50,000 unit PO MONTHLY [facility] Levothyroxine Sodium (Synthroid Tab*) 50 mcg PO 0600 [facility] Last Admin: 10/17/16 07:17 Dose: 50 mcg Multivitamins (Theragran Tab*) 1 tab PO DAILY [facility] Last Admin: 10/17/16 08:09 Dose: 1 tab Nicotine (Nicotine Inhaler*) 10 mg INH Q2H PRN PRN Reason: CRAVING Omeprazole (Prilosec Cap*) 20 mg PO DAILY [facility] Last Admin: 10/17/16 08:09 Dose: 20 mg Promethazine HCl (Phenergan Tab*) 25 mg PO Q8H PRN PRN Reason: NAUSEA Last Admin: 10/15/16 04:51 Dose: 25 mg Tamsulosin HCl (Flomax Cap*) 0.4 mg PO QAM [facility] Last Admin: 10/17/16 08:09 Dose: 0.4 mg Topiramate (Topamax(*)) 100 mg PO DAILY [facility] Last Admin: 10/17/16 08:09 Dose: 100 mg Ziprasidone (Geodon (Generic) *) 40 mg PO DAILY [facility] Last Admin: 10/17/16 08:10 Dose: 40 mg Ziprasidone (Geodon Cap*) 160 mg PO DAILY [facility] Last Admin: 10/17/16 08:11 Dose: 160 mg Zolpidem Tartrate (Ambien Tab*) 5 mg PO BEDTIME [facility] Last Admin: 10/16/16 20:29 Dose: 5 mg - Discharge Plan Discharge Plan: Consider Longer Term Tx
[2016-10-17] MEDS: Zolpidem TAB* 5 MG PO SCH (21:00)
[2016-10-17] MEDS: cloNIDine TAB* 0.1 MG PO SCH (21:00)
[2016-10-18] MEDS: clonazePAM TAB(*) 0.5 MG PO PRN ×2 (05:36→19:05)
[2016-10-18] MEDS: Levothyroxine TAB* 50 MCG TAB PO SCH (05:38)
[2016-10-18] MEDS: Ziprasidone CAP* 80 MG PO SCH (08:00)
[2016-10-18] MEDS: Tamsulosin CAP* 0.4 MG PO SCH (08:00)
[2016-10-18] MEDS: Omeprazole CAP* 20 MG PO SCH (08:00)
[2016-10-18] MEDS: Acetaminophen TAB* 325 MG PO PRN (08:00)
[2016-10-18] MEDS: Cetirizine* 10 MG TAB PO SCH (08:00)
[2016-10-18] MEDS: Ziprasidone * 20 MG CAP (generic Geodon) PO SCH (08:00)
[2016-10-18] MEDS: DULoxetine DR CAP* 60 MG CAP.DR PO SCH (08:00)
[2016-10-18] MEDS: Dicyclomine CAP* 10 MG PO SCH ×4 (08:01→20:39)
[2016-10-18] MEDS: Topiramate TAB(*) 100 MG PO SCH (08:01)
[2016-10-18] MEDS: Vitamin THERAPEUTIC TAB PO SCH (08:01)
[2016-10-18] MEDS: cloNIDine TAB* 0.1 MG PO SCH (20:39)
[2016-10-18] MEDS: Zolpidem TAB* 5 MG PO SCH (20:55)
[2016-10-19] MEDS: Levothyroxine TAB* 50 MCG TAB PO SCH (05:57)
[2016-10-19] MEDS: Dicyclomine CAP* 10 MG PO SCH ×4 (08:23→20:26)
[2016-10-19] MEDS: Vitamin THERAPEUTIC TAB PO SCH (08:24)
[2016-10-19] MEDS: DULoxetine DR CAP* 60 MG CAP.DR PO SCH (08:24)
[2016-10-19] MEDS: Ziprasidone CAP* 80 MG PO SCH (08:24)
[2016-10-19] MEDS: Topiramate TAB(*) 100 MG PO SCH (08:24)
[2016-10-19] MEDS: Omeprazole CAP* 20 MG PO SCH (08:24)
[2016-10-19] MEDS: Tamsulosin CAP* 0.4 MG PO SCH (08:24)
[2016-10-19] MEDS: Cetirizine* 10 MG TAB PO SCH (08:24)
[2016-10-19] MEDS: Ziprasidone * 20 MG CAP (generic Geodon) PO SCH (08:24)
[2016-10-19] MEDS: clonazePAM TAB(*) 0.5 MG PO PRN (16:55)
[2016-10-19] MEDS: cloNIDine TAB* 0.1 MG PO SCH (20:27)
[2016-10-19] MEDS: Zolpidem TAB* 5 MG PO SCH (20:28)
[2016-10-20] MEDS: Levothyroxine TAB* 50 MCG TAB PO SCH (05:57)
[2016-10-20] MEDS: DULoxetine DR CAP* 60 MG CAP.DR PO SCH (08:24)
[2016-10-20] MEDS: Ziprasidone * 20 MG CAP (generic Geodon) PO SCH (08:25)
[2016-10-20] MEDS: Ziprasidone CAP* 80 MG PO SCH (08:25)
[2016-10-20] MEDS: Tamsulosin CAP* 0.4 MG PO SCH (08:25)
[2016-10-20] MEDS: Dicyclomine CAP* 10 MG PO SCH ×4 (08:26→20:40)
[2016-10-20] MEDS: Topiramate TAB(*) 100 MG PO SCH (08:27)
[2016-10-20] MEDS: Vitamin THERAPEUTIC TAB PO SCH (08:27)
[2016-10-20] MEDS: Omeprazole CAP* 20 MG PO SCH (08:27)
[2016-10-20] MEDS: Cetirizine* 10 MG TAB PO SCH (08:27)
--- NOTE | 2016-10-20 09:05 | PN ---
Subjective - Subjective Service Type: 41640 Hosp care 15 min low complexity Subjective: Sonia continues to complain of SI to OD and CAH to engage in SIB. He does not feel safe, but agrees to come to us before any SIB. He feels his Geodon is not working. He would like to resume 60 mg dosing of Cymbalta. Objective - Appearance Appearance: Healthy Appearing Dysmorphic Features: No Hygiene: Normal Grooming: Disheveled - Behavior Psychomotor Activities: Normal Exhibits Abnormal Movement: No - Attitude and Relatedness Attitude and Relatedness: Cooperative Eye Contact: Fair - Speech Quality: Unpressured Latencies: Normal Quantity: Appropriate - Mood Patient's Decription of Mood: "Not good" - Affect Observed Affect: Tense Affect Consistent with: Dysphoria - Thought Process Patient's Thought Process: Coherent, Goal Directed Thought Content: Yes Passive Wish, Yes Suicidal Planning, No Homicidal Ideation, No Paranoid Ideation - Sensorium Experiencing Hallucinations: Yes Type of Hallucinations: Visual: No, Auditory: Yes, Command: Yes - Level of Consciousness Level of Consciousness: Alert Orientation: Yes Intact, Yes Orientated to Time, Yes Orientated to Place, Yes Orientated to Person - Impulse Control Impulse Control: Tenuous - Insight and Judgement Insight and Judgement: Poor - Group Participation Particating in Group Activities: Yes - Medication Management Medication Management Adherence: Yes Assessment - Assessment Merits Inpatient Hospitalization: For Immediate Safety, For Stabilization, For Ongoing Evaluation, For Discharge Planning, Pending Safe DC Plan Inpatient DSM-IV Dx: PTSD. Depressive Disorder. Personality Disorder Clinical Impression: 2.22.17 Sonia Banegas presents now in a very similar fashion to prior presentations here , with report of intolerable abdominal pain accompanied by recrudescence of PTSD symptoms. He is seeking opiate analgesia for the abdominal pain. He had presented several times in the past few days and weeks to the emergency department with complaint of abdominal pain and had been sent home for outpatient follow-up. He came back on this occasion with a sublethal suicide attempt on seven to eight Geodon and superficial cutting on his abdomen. He was medically cleared in the ED. We will be having a hospitalist see him about the abdominal pain and follow their recommendations. It may also be that his complaint of abdominal pain is psychogenic, related to his PTSD symptoms. We will be encouraging him to make use of the safety of the therapeutic milieu and groups. We will be exploring the possibility of placement into a prison as he has requested. We will continue his outpatient medication regimen. Resolution of his suicidality will be criterion for discharge, which may be to some form of interim housing toward ultimate placement into a group living facility, which may take weeks to come to fruition. 2.23.17 Sonia reports some improvement of mood today alongside reduced abdominal pain. He reports also reduced thoughts of suicide. He says he does not yet feel safe to discharge today. 2.24.17 Sonia reports good mood and remission of SI on the unit, with reduced rating of abdominal pain. He is not attending groups. He seeks discharge directly to a group living arrangement as he says he is unsafe in his current housing, as he demonstrated with suicide attempt or suicidal gesture. 2.27.17 Sonia reluctantly agrees to prepare for discharge tomorrow. He reports remission of SI, and improved abdominal pain. Report from the social secretary on the case is that [place] has not returned calls pursuing placement into group living facility. 3.1.17 Sonia today reports that he has renewed SI and CAH, and he cut superficially on his abdomen with a plastic spoon. He must remain in hospital until safety concerns are resolved adequately. He requests Klonopin PRN to address anxiety. [place] through Retail Planning Manager Ms Moore that Sonia has lost VNS due to self- injury demonstrated to VN. 3.2.17 Sonia reports today remission of SI/CAH, with only SIB urge. He agrees to transfer to [facility]. He is med, meal, and partially group compliant. 3.6.17 Sonia continues to have dangerous intent and plan. He requests a change of meds: replace Geodon as he feels it is ineffective, increase Cymbalta back to 60 mg. Plan - Plan Treatment Plan: Name: SONIA BANEGAS Birthdate: 1965 [id number] Continue current meds, with these changes (1) replace prn Klonopin with PRN Seroquel, (2) increase Cymbalta dose back to 60 mg daily. Call out to Dr Bran seeking his thoughts about replacing Geodon before making change there. EKG to r/o QT prolongation. Monitor MS and safety. Encourage groups and milieu. With lack of support services, particularly VNS, and increased dangerous intent/plan on this admission, and numerous admissions in recent months, we are tracking Sonia to long term care pharmacist care at [facility] to achieve greater stability and to arrange from there for increased services to maintain safety, with ideally placement into group living facility that will include either from the residential program or from VNS safe management of medications, which he now says he is having thoughts to OD on. Medications: Current Medications Acetaminophen (Tylenol Tab*) 650 mg PO Q4H PRN PRN Reason: for pain; or Temp >101 F Last Admin: 10/18/16 08:00 Dose: 650 mg Al Hydrox/Mg Hydrox/Simethicone (Maalox Plus*) 10 ml PO BID PRN PRN Reason: NAUSEA/VOMITING Last Admin: 10/17/16 07:41 Dose: 10 ml Cetirizine HCl (Zyrtec*) 10 mg PO DAILY [facility] Last Admin: 10/20/16 08:27 Dose: 10 mg Clonazepam (Klonopin Tab(*)) 0.5 mg PO BID PRN PRN Reason: ANXIETY Last Admin: 10/19/16 16:55 Dose: 0.5 mg Clonidine HCl (Catapres Tab*) 0.3 mg PO BEDTIME [facility] Last Admin: 10/19/16 20:27 Dose: 0.3 mg Device (Nicotine Mouth Piece*) 1 each INH ONCE PRN PRN Reason: CRAVINGS Dicyclomine HCl (Bentyl Cap*) 20 mg PO ACHS [facility] Last Admin: 10/20/16 08:26 Dose: 20 mg Duloxetine HCl (Cymbalta Cap*) 60 mg PO DAILY [facility] Last Admin: 10/20/16 08:24 Dose: 60 mg Ergocalciferol (Drisdol Cap*) 50,000 unit PO MONTHLY [facility] Levothyroxine Sodium (Synthroid Tab*) 50 mcg PO 0600 TERRI Last Admin: 10/20/16 05:57 Dose: 50 mcg Multivitamins (Theragran Tab*) 1 tab PO DAILY [facility] Last Admin: 10/20/16 08:27 Dose: 1 tab Nicotine (Nicotine Inhaler*) 10 mg INH Q2H PRN PRN Reason: CRAVING Omeprazole (Prilosec Cap*) 20 mg PO DAILY [facility] Last Admin: 10/20/16 08:27 Dose: 20 mg Promethazine HCl (Phenergan Tab*) 25 mg PO Q8H PRN PRN Reason: NAUSEA Last Admin: 10/15/16 04:51 Dose: 25 mg Tamsulosin HCl (Flomax Cap*) 0.4 mg PO QAM [facility] Last Admin: 10/20/16 08:25 Dose: 0.4 mg Topiramate (Topamax(*)) 100 mg PO DAILY [facility] Last Admin: 10/20/16 08:27 Dose: 100 mg Ziprasidone (Geodon (Generic) *) 40 mg PO DAILY [facility] Last Admin: 10/20/16 08:25 Dose: 40 mg Ziprasidone (Geodon Cap*) 160 mg PO DAILY [facility] Last Admin: 10/20/16 08:25 Dose: 160 mg Zolpidem Tartrate (Ambien Tab*) 5 mg PO BEDTIME [facility] Last Admin: 10/19/16 20:28 Dose: 5 mg - Discharge Plan Discharge Plan: Consider Longer Term Tx
[2016-10-20] MEDS: QUEtiapine TAB* 25 MG PO PRN ×2 (13:57→22:48)
--- NOTE | 2016-10-20 14:50 | PN ---
MHU: Group Therapy Note - Service Type Service Type: [id number] Group Psychotherapy - Cognitive Behavioral Group Therapy ( CBT):Patient attended CBT programming this morning and presented with flat affect that did not vary with discussion. Although responsive to direct prompts to respond to questions, patient did not engage in spontaneous conversation.
[2016-10-20] MEDS: Zolpidem TAB* 5 MG PO SCH (20:40)
[2016-10-20] MEDS: cloNIDine TAB* 0.1 MG PO SCH (20:40)
[2016-10-21] MEDS: Acetaminophen TAB* 325 MG PO PRN (05:46)
[2016-10-21] MEDS: Levothyroxine TAB* 50 MCG TAB PO SCH (05:46)
[2016-10-21] MEDS: Al Hydrox/Mg Hydrox/Simet LIQ* 30 ML UDC PO PRN ×2 (07:47→16:47)
[2016-10-21] MEDS: Ziprasidone CAP* 80 MG PO SCH (07:48)
[2016-10-21] MEDS: Cetirizine* 10 MG TAB PO SCH (07:48)
[2016-10-21] MEDS: DULoxetine DR CAP* 60 MG CAP.DR PO SCH (07:48)
[2016-10-21] MEDS: Topiramate TAB(*) 100 MG PO SCH (07:48)
[2016-10-21] MEDS: Omeprazole CAP* 20 MG PO SCH (07:48)
[2016-10-21] MEDS: Tamsulosin CAP* 0.4 MG PO SCH (07:49)
[2016-10-21] MEDS: Dicyclomine CAP* 10 MG PO SCH ×4 (07:49→20:30)
[2016-10-21] MEDS: Vitamin THERAPEUTIC TAB PO SCH (07:49)
[2016-10-21] MEDS: QUEtiapine TAB* 25 MG PO PRN ×2 (12:46→19:53)
[2016-10-21] MEDS: Zolpidem TAB* 5 MG PO SCH (20:30)
[2016-10-21] MEDS: cloNIDine TAB* 0.1 MG PO SCH (20:31)
[2016-10-22] MEDS: Al Hydrox/Mg Hydrox/Simet LIQ* 30 ML UDC PO PRN (07:34)
[2016-10-22] MEDS: Levothyroxine TAB* 50 MCG TAB PO SCH (07:35)
--- NOTE | 2016-10-22 08:10 | PN ---
Subjective - Subjective Service Type: [id number] Hosp care 15 min low complexity Subjective: Sonia reports continued CAH to SIB, but commits to come to us before he cuts himself. He also reports 'a little bit' of SI to OD. He rates his abdominal pain currently 2/10, low and good. He denies any other physical complaints. He is looking forward to transfer to [facility]. Objective - Appearance Appearance: Well Developed/Nourished Dysmorphic Features: No Hygiene: Normal Grooming: Disheveled - Behavior Psychomotor Activities: Normal Exhibits Abnormal Movement: No - Attitude and Relatedness Attitude and Relatedness: Cooperative Eye Contact: Fair - Speech Quality: Unpressured Latencies: Normal Quantity: Terse - Mood Patient's Decription of Mood: "So so" - Affect Observed Affect: Depressed Affect Consistent with: Dysphoria - Thought Process Patient's Thought Process: Coherent, Goal Directed Thought Content: Yes Passive Wish, Yes Suicidal Planning, No Homicidal Ideation, No Paranoid Ideation - Sensorium Experiencing Hallucinations: Yes Type of Hallucinations: Visual: No, Auditory: Yes, Command: Yes - Level of Consciousness Level of Consciousness: Alert Orientation: Yes Intact, Yes Orientated to Time, Yes Orientated to Place, Yes Orientated to Person - Impulse Control Impulse Control: Intact - Insight and Judgement Insight and Judgement: Poor - Group Participation Particating in Group Activities: Yes - Medication Management Medication Management Adherence: Yes Assessment - Assessment Merits Inpatient Hospitalization: For Immediate Safety, For Stabilization, For Ongoing Evaluation, For Discharge Planning, Pending Safe DC Plan Inpatient DSM-IV Dx: PTSD. Depressive Disorder. Personality Disorder Clinical Impression: 2.22.17 Sonia Banegas presents now in a very similar fashion to prior presentations here , with report of intolerable abdominal pain accompanied by recrudescence of PTSD symptoms. He is seeking opiate analgesia for the abdominal pain. He had presented several times in the past few days and weeks to the emergency department with complaint of abdominal pain and had been sent home for outpatient follow-up. He came back on this occasion with a sublethal suicide attempt on seven to eight Geodon and superficial cutting on his abdomen. He was medically cleared in the ED. We will be having a hospitalist see him about the abdominal pain and follow their recommendations. It may also be that his complaint of abdominal pain is psychogenic, related to his PTSD symptoms. We will be encouraging him to make use of the safety of the therapeutic milieu and groups. We will be exploring the possibility of placement into a alf as he has requested. We will continue his outpatient medication regimen. Resolution of his suicidality will be criterion for discharge, which may be to some form of interim housing toward ultimate placement into a group living facility, which may take weeks to come to fruition. 2.23.17 Sonia reports some improvement of mood today alongside reduced abdominal pain. He reports also reduced thoughts of suicide. He says he does not yet feel safe to discharge today. 2..17 Sonia reports good mood and remission of SI on the unit, with reduced rating of abdominal pain. He is not attending groups. He seeks discharge directly to a group living arrangement as he says he is unsafe in his current housing, as he demonstrated with suicide attempt or suicidal gesture. 2.27.17 Sonia reluctantly agrees to prepare for discharge tomorrow. He reports remission of SI, and improved abdominal pain. Report from the social worker psychiatric on the case is that [place] has not returned calls pursuing placement into group living facility. 3.1.17 Sonia today reports that he has renewed SI and CAH, and he cut superficially on his abdomen with a plastic spoon. He must remain in hospital until safety concerns are resolved adequately. He requests Klonopin PRN to address anxiety. [place] through Bank Cashier Ms Moore that Sonia has lost VNS due to self- injury demonstrated to VN. 3.2.17 Sonia reports today remission of SI/CAH, with only SIB urge. [facility] He is med, meal, and partially group compliant. 3.6.17 Sonia continues to have dangerous intent and plan. He requests a change of meds: replace Geodon as he feels it is ineffective, increase Cymbalta back to 60 mg. 3.8.17 Sonia has continued CAH to SIB and 'a little' SI to OD. He is looking forward to transfer to [facility]. Abdominal pain is in abeyance. He agrees with continued taper off Geodon as per Dr Bran's suggestion, as Dr Bran is unsure of efficacy of any antipsychotic against Sonia's reports of CAH. Plan - Plan Treatment Plan: Name: SONIA BANEGAS Birthdate: 1965 [id number] Continue taper off Geodon. EKG ruled out QTc prolongation (422 msec). Monitor MS and safety. Encourage groups and milieu. With lack of support services, particularly VNS, and increased dangerous intent/plan on this admission, and numerous admissions in recent months, we are tracking Sonia to parts counterman care at [facility] to achieve greater stability and to arrange from there for increased services to maintain safety, with ideally placement into group living facility that will include either from the residential program or from VNS safe management of medications, which he now says he is having thoughts to OD on. Medications: Current Medications Acetaminophen (Tylenol Tab*) 650 mg PO Q4H PRN PRN Reason: for pain; or Temp >101 F Last Admin: 10/21/16 05:46 Dose: 650 mg Al Hydrox/Mg Hydrox/Simethicone (Maalox Plus*) 10 ml PO BID PRN PRN Reason: NAUSEA/VOMITING Last Admin: 10/22/16 07:34 Dose: 10 ml Cetirizine HCl (Zyrtec*) 10 mg PO DAILY [facility] Last Admin: 10/21/16 07:48 Dose: 10 mg Clonidine HCl (Catapres Tab*) 0.3 mg PO BEDTIME [facility] Last Admin: 10/21/16 20:31 Dose: 0.3 mg Device (Nicotine Mouth Piece*) 1 each INH ONCE PRN PRN Reason: CRAVINGS Dicyclomine HCl (Bentyl Cap*) 20 mg PO ACHS [facility] Last Admin: 10/21/16 20:30 Dose: 20 mg Duloxetine HCl (Cymbalta Cap*) 60 mg PO DAILY [facility] Last Admin: 10/21/16 07:48 Dose: 60 mg Ergocalciferol (Drisdol Cap*) 50,000 unit PO MONTHLY [facility] Levothyroxine Sodium (Synthroid Tab*) 50 mcg PO 0600 TERRI Last Admin: 10/22/16 07:35 Dose: 50 mcg Multivitamins (Theragran Tab*) 1 tab PO DAILY [facility] Last Admin: 10/21/16 07:49 Dose: 1 tab Nicotine (Nicotine Inhaler*) 10 mg INH Q2H PRN PRN Reason: CRAVING Omeprazole (Prilosec Cap*) 20 mg PO DAILY [facility] Last Admin: 10/21/16 07:48 Dose: 20 mg Promethazine HCl (Phenergan Tab*) 25 mg PO Q8H PRN PRN Reason: NAUSEA Last Admin: 10/15/16 04:51 Dose: 25 mg Quetiapine Fumarate (Seroquel Tab*) 25 mg PO Q4H PRN PRN Reason: AGITATION/ANXIETY Last Admin: 10/21/16 19:53 Dose: 25 mg Tamsulosin HCl (Flomax Cap*) 0.4 mg PO QAM [facility] Last Admin: 10/21/16 07:49 Dose: 0.4 mg Topiramate (Topamax(*)) 100 mg PO DAILY [facility] Last Admin: 10/21/16 07:48 Dose: 100 mg Ziprasidone (Geodon Cap*) 160 mg PO DAILY [facility] Last Admin: 10/21/16 07:48 Dose: 160 mg Zolpidem Tartrate (Ambien Tab*) 5 mg PO BEDTIME [facility] Last Admin: 10/21/16 20:30 Dose: 5 mg - Discharge Plan Discharge Plan: Consider Longer Term Tx
[2016-10-22] MEDS: Dicyclomine CAP* 10 MG PO SCH ×4 (08:25→20:33)
[2016-10-22] MEDS: Vitamin THERAPEUTIC TAB PO SCH (08:26)
[2016-10-22] MEDS: Omeprazole CAP* 20 MG PO SCH (08:26)
[2016-10-22] MEDS: Topiramate TAB(*) 100 MG PO SCH (08:26)
[2016-10-22] MEDS: DULoxetine DR CAP* 60 MG CAP.DR PO SCH (08:26)
[2016-10-22] MEDS: Tamsulosin CAP* 0.4 MG PO SCH (08:26)
[2016-10-22] MEDS: Cetirizine* 10 MG TAB PO SCH (08:26)
[2016-10-22] MEDS: Ziprasidone * 20 MG CAP (generic Geodon) PO SCH (08:28)
[2016-10-22] MEDS: Ziprasidone CAP* 80 MG PO SCH (08:28)
[2016-10-22] MEDS: Promethazine TAB* 25 MG PO PRN (09:34)
--- NOTE | 2016-10-22 11:00 | PN ---
MHU: Group Therapy Note - Service Type Service Type: [id number] Group Psychotherapy - Cognitive Behavioral Group Therapy ( CBT):Patient attended CBT programming this morning and presented with flat affect that did not vary with discussion. Although responsive to direct prompts to respond to questions, patient did not engage in spontaneous conversation.
--- NOTE | 2016-10-22 13:44 | DS ---
Subjective - Subjective Service Types: [address] [facility] Day Mgmt simple under 30 min Discharge Date: 10/23/16 Subjective: Krzysztof today reports he is having AH, but no longer telling him to hurt himself , only taunting him. He also reports continued SI, but passive no without the plan to OD that he reported yesterday. He reports feeling good about the transfer to the [facility]. He is hopeful that longer term care will help him to more fully stabilize so that he is no longer frequently being admitted for acute exacerbations of his mental illness with active SI and SIB. He also hopes that he may be able to discharge from the [facility] into a group living facility that will provide greater social support against his symptoms. He reports increased abdominal pain today, rated 4/10, was 2/10 yesterdy, 9/10 on admission. He is concerned that he may have increased AH if Geodon is tapered off completely, but he understands that his outpatient psychiatrist Dr Bran of [facility] had suggested it might be a good time while he is in detention inpatient care to determine if he actually benefits from Geodon against his report of AH. He has reported today milder AH symptoms with dose reduction of Geodon. Objective - Appearance Appearance: Well Developed/Nourished Dysmorphic Features: No Hygiene: Normal Grooming: Fairly Well Kept - Behavior Psychomotor Activities: Normal Exhibits Abnormal Movement: No - Attitude and Relatedness Attitude and Relatedness: Cooperative Eye Contact: Fair - Speech Quality: Unpressured Latencies: Normal Quantity: Appropriate - Mood Patient's Decription of Mood: "Okay" - Affect Observed Affect: Depressed Affect Consistent with: Dysphoria - but milder than on admission - Thought Process Patient's Thought Process: Coherent, Goal Directed Thought Content: Yes Passive Wish, No Suicidal Planning, No Homicidal Ideation, No Paranoid Ideation - Sensorium Experiencing Hallucinations: Yes Type of Hallucinations: Visual: No, Auditory: Yes, Command: No - Level of Consciousness Level of Consciousness: Alert Orientation: Yes Intact, Yes Orientated to Time, Yes Orientated to Place, Yes Orientated to Person - Impulse Control Impulse Control: Intact - Insight and Judgement Insight and Judgement: Poor - Group Participation Particating in Group Activities: Yes - Medication Management Medication Management Adherence: Yes Treatment Course & Assessment Clinical Course & Impression: Day of admission, 10.08.16 Krzysztof Banegas presents now in a very similar fashion to prior presentations here , with report of intolerable abdominal pain accompanied by recrudescence of PTSD symptoms. He is seeking opiate analgesia for the abdominal pain. He had presented several times in the past few days and weeks to the emergency department with complaint of abdominal pain and had been sent home for outpatient follow-up. He came back on this occasion with a sublethal suicide attempt on seven to eight Geodon and superficial cutting on his abdomen. He was medically cleared in the ED. We will be having a hospitalist see him about the abdominal pain and follow their recommendations. It may also be that his complaint of abdominal pain is psychogenic, related to his PTSD symptoms. We will be encouraging him to make use of the safety of the therapeutic milieu and groups. We will be exploring the possibility of placement into a residential as he has requested. We will continue his outpatient medication regimen. Resolution of his suicidality will be criterion for discharge, which may be to some form of interim housing toward ultimate placement into a group living facility, which may take weeks to come to fruition. 2.23.17 Krzysztof reports some improvement of mood today alongside reduced abdominal pain. He reports also reduced thoughts of suicide. He says he does not yet feel safe to discharge today. 2.24.17 Krzysztof reports good mood and remission of SI on the unit, with reduced rating of abdominal pain. He is not attending groups. He seeks discharge directly to a group living arrangement as he says he is unsafe in his current housing, as he demonstrated with suicide attempt or suicidal gesture. 2.27.17 Krzysztof reluctantly agrees to prepare for discharge tomorrow. He reports remission of SI, and improved abdominal pain. Report from the renal social worker on the case is that [facility] has not returned calls pursuing placement into group living facility. 3.1.17 Krzysztof today reports that he has renewed SI and CAH, and he cut superficially on his abdomen with a plastic spoon. He must remain in hospital until safety concerns are resolved adequately. He requests Klonopin PRN to address anxiety. [place] through [employer] Ms Moore that Krzysztof has lost VNS due to self- injury demonstrated to VN. 3.2.17 Krzysztof reports today remission of SI/CAH, with only SIB urge. He agrees to transfer to [facility] hospital. He is med, meal, and partially group compliant. 3.6.17 Krzysztof continues to have dangerous intent and plan. He requests a change of meds: replace Geodon as he feels it is ineffective, increase Cymbalta back to 60 mg. 10.22.16 Krzysztof has continued CAH to SIB and 'a little' SI to OD. He is looking forward to transfer to [facility]. Abdominal pain is in abeyance. He agrees with continued taper off Geodon as per Dr Bran's suggestion, as Dr Bran is unsure of efficacy of any antipsychotic against Krzysztof's reports of CAH. 10.23.16 Krzysztof transfers to [facility] for long term care phlebotomist care today. He is agreeable with this discharge plan. He continues to report taunting AH, but not CAH to SIB. He also reports continued passive SI, but no longer SI with plan to OD. Merits Inpatient Hospitalization: Yes Clear for Discharge: Other - to [facility] Inpatient DSM-IV Dx: PTSD. Depressive Disorder. Personality Disorder - [place] Medical Illness: GERD, persistent c/o abdominal pain correlating with psychological distress, history of seizure disorder, hypothyroidism, sarcoidosis , nephrectomy, urinary output difficulties, hypercholesterolemia, and headaches. - [place] Stressors: SPMI, limited financial and social supports Family: sister is supportive but also struggles with mental illness Primary Support Group: professional care providers, sister - [place] [id number]: 38 Estimate of Highest-Past Year: 63 Discharge Planning - Discharge Planning Discharge Plan: Consider Longer Term Tx - transferring today to [facility] Outpatient Program: [facility] - once discharged from [facility] Recommendations for Continuing Care: Medication Management, Psychotherapy, Primary Care Followup Medications: Current Medications Acetaminophen (Tylenol Tab*) 650 mg PO Q4H PRN PRN Reason: for pain; or Temp >101 F Last Admin: 10/21/16 05:46 Dose: 650 mg Al Hydrox/Mg Hydrox/Simethicone (Maalox Plus*) 10 ml PO BID PRN PRN Reason: NAUSEA/VOMITING Last Admin: 10/22/16 07:34 Dose: 10 ml Cetirizine HCl (Zyrtec*) 10 mg PO DAILY TERRI Last Admin: 10/22/16 08:26 Dose: 10 mg Clonidine HCl (Catapres Tab*) 0.3 mg PO BEDTIME TERRI Last Admin: 10/21/16 20:31 Dose: 0.3 mg Device (Nicotine Mouth Piece*) 1 each INH ONCE PRN PRN Reason: CRAVINGS Dicyclomine HCl (Bentyl Cap*) 20 mg PO ACHS [facility] Last Admin: 10/22/16 12:02 Dose: 20 mg Duloxetine HCl (Cymbalta Cap*) 60 mg PO DAILY [facility] Last Admin: 10/22/16 08:26 Dose: 60 mg Ergocalciferol (Drisdol Cap*) 50,000 unit PO MONTHLY [facility] Levothyroxine Sodium (Synthroid Tab*) 50 mcg PO 0600 [facility] Last Admin: 10/22/16 07:35 Dose: 50 mcg Multivitamins (Theragran Tab*) 1 tab PO DAILY [facility] Last Admin: 10/22/16 08:26 Dose: 1 tab Nicotine (Nicotine Inhaler*) 10 mg INH Q2H PRN PRN Reason: CRAVING Omeprazole (Prilosec Cap*) 20 mg PO DAILY [facility] Last Admin: 10/22/16 08:26 Dose: 20 mg Promethazine HCl (Phenergan Tab*) 25 mg PO Q8H PRN PRN Reason: NAUSEA Last Admin: 10/22/16 09:34 Dose: 25 mg Quetiapine Fumarate (Seroquel Tab*) 25 mg PO Q4H PRN PRN Reason: AGITATION/ANXIETY Last Admin: 10/21/16 19:53 Dose: 25 mg Tamsulosin HCl (Flomax Cap*) 0.4 mg PO QAM [facility] Last Admin: 10/22/16 08:26 Dose: 0.4 mg Topiramate (Topamax(*)) 100 mg PO DAILY [facility] Last Admin: 10/22/16 08:26 Dose: 100 mg Ziprasidone (Geodon Cap*) 80 mg PO DAILY [facility] Last Admin: 10/22/16 08:28 Dose: 80 mg Ziprasidone (Geodon (Generic) *) 40 mg PO DAILY [facility] Last Admin: 10/22/16 08:28 Dose: 40 mg Zolpidem Tartrate (Ambien Tab*) 5 mg PO BEDTIME [facility] Last Admin: 10/21/16 20:30 Dose: 5 mg Discharge Planning: Prescriptions provided for discharge [] Yes [x] No Follow up care details as per social work arrangements. Patient response to discharge plan: [x] eager for discharge [x] agreeable with discharge plan [] ambivalent about discharge [] disagrees with discharge today
[2016-10-22] MEDS: QUEtiapine TAB* 25 MG PO PRN (15:47)
[2016-10-22] MEDS: cloNIDine TAB* 0.1 MG PO SCH (20:33)
[2016-10-22] MEDS: Zolpidem TAB* 5 MG PO SCH (20:34)
[2016-10-23] MEDS: Levothyroxine TAB* 50 MCG TAB PO SCH (05:11)
[2016-10-23 07:35] VITALS: BP 130/71
[2016-10-23] MEDS: Omeprazole CAP* 20 MG PO SCH (07:37)
[2016-10-23] MEDS: Topiramate TAB(*) 100 MG PO SCH (07:37)
[2016-10-23] MEDS: DULoxetine DR CAP* 60 MG CAP.DR PO SCH (07:37)
[2016-10-23] MEDS: Cetirizine* 10 MG TAB PO SCH (07:37)
[2016-10-23] MEDS: Dicyclomine CAP* 10 MG PO SCH ×2 (07:37→11:45)
[2016-10-23] MEDS: Vitamin THERAPEUTIC TAB PO SCH (07:37)
[2016-10-23] MEDS: Ziprasidone CAP* 80 MG PO SCH (07:38)
[2016-10-23] MEDS: Tamsulosin CAP* 0.4 MG PO SCH (07:38)
[2016-10-23] MEDS: Ziprasidone * 20 MG CAP (generic Geodon) PO SCH (07:39)
[2016-10-23] MEDS: Al Hydrox/Mg Hydrox/Simet LIQ* 30 ML UDC PO PRN (07:42)
== END 2016-10-23 12:35 | disposition short-term general hospital (02) | DRG 882 ==
LOC: ED 10:36 → BSU 16:59
PROVIDERS: ADMIT Psychiatry & Neurology Psychiatry; ATTEND Psychiatry & Neurology Psychiatry
PROC: GZHZZZZ Group Psychotherapy (ICD-10-PCS; principal; 2016-10-07)
DX: F43.10 Post-traumatic stress disorder, unspecified (principal); F20.9 Schizophrenia, unspecified; D86.9 Sarcoidosis, unspecified; F32.9 Major depressive disorder, single episode, unspecified; F60.9 Personality disorder, unspecified; K21.9 Gastro-esophageal reflux disease without esophagitis; R10.9 Unspecified abdominal pain; G40.909 Epilepsy, unspecified, not intractable, without status epilepticus; E03.9 Hypothyroidism, unspecified; Z90.5 Acquired absence of kidney; N39.8 Other specified disorders of urinary system; R51 Headache; E78.00 Pure hypercholesterolemia, unspecified; Z91.410 Personal history of adult physical and sexual abuse; Z81.8 Family history of other mental and behavioral disorders; J42 Unspecified chronic bronchitis; K58.9 Irritable bowel syndrome, unspecified; N40.0 Benign prostatic hyperplasia without lower urinary tract symptoms; Z87.442 Personal history of urinary calculi; F41.9 Anxiety disorder, unspecified; Z82.49 Family history of ischemic heart disease and other diseases of the circulatory system; Z82.0 Family history of epilepsy and other diseases of the nervous system; Z80.9 Family history of malignant neoplasm, unspecified; Z87.891 Personal history of nicotine dependence; G89.29 Other chronic pain; N18.9 Chronic kidney disease, unspecified
CPT/HCPCS: 36415; 74000; 80053; 80307; 80320; 80329; 81003; 83605; 84443; 85025; 90853; 93005; 99222; 99231; 99238; A9270-GY; G0480

== ENCOUNTER 2017-07-30 09:52 | Emergency (ER) | payer MEDICARE, MEDICAID ==
--- NOTE | 2017-07-30 11:13 | UC ---
Nausea/Vomiting/Diarrhea HPI - HPI Summary HPI Summary: 51 y/o male presents to the urgent care c/o nausea and vomiting for the past week. Pt reports he saw his PCP 2 days ago and was Rx a medication for vomiting. He can't recall the name. But symptoms are not improving. He has had 4 episodes of vomiting every day. He has decrease appetite and a burning sensation in his epigastric area. His sister has similar symptoms. He has been drinking fluids. Pt denies fever, hematomesis, or billious vomitin, abdominal pain. lower back pain, urinary symptoms. He had a normal BM this morning. - History of Current Complaint Chief Complaint: UCGeneralIllness Stated Complaint: VOMITING Time Seen by Provider: 07/30/17 11:11 Hx Obtained From: Patient Onset/Duration: Gradual Onset, Lasting Weeks - 1 week, Still Present Timing: Intermittent Episodes Lasting: Severity Initially: Mild Severity Currently: Moderate Pain Intensity: 0 Pain Scale Used: 0-10 Numeric Location: Epigastric - burning sensation Character: Burning Aggravating Factor(s): Other: - vomiting Alleviating Factor(s): Nothing Vomiting Frequency: Daily - 4 episodes Nausea/Vomiting Duration: 3-7 days - 1 week with 4 episodes daily Vomiting Characteristics: Nonbilious Diarrhea Presence: No - Risk Factors Influenza Risk Factors: Negative Surgical Obstruction Risk Factor(s): Negative - Allergies/Home Medications Allergies/Adverse Reactions: Allergies Allergy/AdvReac Type Severity Reaction Status Date / Time No Known Allergies Allergy Verified 07/30/17 10:17 Home Medications: Home Medications Cetirizine* [ZyrTEC 10 MG TAB*] 10 mg PO DAILY PRN 07/30/17 [History Confirmed 07/30/17] Ziprasidone CAP* [Geodon CAP*] 80 mg PO BEDTIME 07/30/17 [History Confirmed ] PMH/Surg Hx/FS Hx/Imm Hx Previously Healthy: Yes Endocrine History: Hypothyroidism Cardiovascular History: Hypertension, Deep Vein Thrombosis GI/ History: Gastroesophageal Reflux Neurological History: Seizures Other Neurological History: learning disabilities Psychological History: Depression, Post Traumatic Stress Disorder Other History Of: Negative For: Anticoagulant Therapy - Surgical History Surgical History: Yes Surgery Procedure, Year, and Place: 2008 APPENDECTOMY, [facility] [place] 1989' CYST REMOVED FROM BLADDER, [facility] CHOLECYSTECTOMY-12/2012 - Family History Known Family History: Positive: Cardiac Disease, Hypertension, Seizure Disorder - sister, Other - cancer - Social History Occupation: Disabled Lives: With Family Alcohol Use: None Alcohol Amount: stopped 4 years ago Substance Use Type: None Substance Use Comment - Amount & Last Used: pt states he has not used any drugs since 2011. Smoking Status (MU): Former Smoker Type: Cigarettes Length of Time of Smoking/Using Tobacco: 20YRS Have You Smoked in the Last Year: No When Did the Patient Quit Smoking/Using Tobacco: 2012 Household Exposure Type: Cigarettes - Immunization History Most Recent Influenza Vaccination: Fall 2015 Most Recent Tetanus Shot: Unsure Most Recent Pneumonia Vaccination: Never Review of Systems Constitutional: Negative Skin: Negative Eyes: Negative ENT: Negative Respiratory: Negative Cardiovascular: Negative Gastrointestinal: Vomiting - 4 epidosdes daily for the past week, Nausea Genitourinary: Negative Motor: Negative Neurovascular: Negative Musculoskeletal: Negative Neurological: Negative Psychological: Negative Is Patient Immunocompromised?: No All Other Systems Reviewed And Are Negative: Yes Physical Exam Triage Information Reviewed: Yes Vital Signs: Initial Vital Signs Temp 98.6 F 07/30/17 10:23 Pulse 82 07/30/17 10:23 Resp 24 07/30/17 10:23 BP 142/82 07/30/17 10:23 Pulse Ox 96 07/30/17 10:23 - Additional Comments Vital Signs Reviewed: Yes General:Patient is a well developed and nourished male who is sitting comfortable in the examining table. Patient is not in any acute respiratory distress. Eyes: Positive: Conjunctiva Clear - PERRLA, EOMI, fundi grossly normal ENT: Positive: Normal ENT inspection, Hearing grossly normal, Pharynx normal, TMs normal Neck: Positive: Supple, Nontender, No Lymphadenopathy Respiratory: Positive: Chest non-tender, Lungs clear, Normal breath sounds, No respiratory distress Cardiovascular: Positive: RRR,S1 and S2 present, No Murmur, Pulses Normal, Brisk Capillary Refill Abdomen Description: Positive: Abd: Flat with no distention. No surface trauma, scars, incisions. hyperactive bowel sounds present in all four quadrants. Tenderness over the epigastric abdomen. no guarding, rigidity to palpation. No masses palpated, no pulsation in epigastric area. No organomegaly. Negative Abrams signs. No periumbilical tenderness. No rebound in the lower quadrants. NT over McBurneys point. Good femoral pulses bilaterally. No hernia noted. No CVAT bilaterally Musculoskeletal: Positive: Strength Intact, ROM Intact, No Edema,FROM in all major joints, no edema, no cyanosis or clubbing. Neuro: Alert and oriented x 3. No acute neurological deficits. Speech is normal. Psycological: WNL Skin: Dry and warm Naus/Vom/Diarrhea Course/Dx - Course Course Of Treatment: 51 y/o male presents to the urgent care c/o nausea and vomiting for the past week. Pt reports he saw his PCP 2 days ago and was Rx a medication for vomiting. He can't recall the name. But symptoms are not improving. He has had 4 episodes of vomiting every day. He has decrease appetite and a burning sensation in his epigastric area. His sister has similar symptoms. He has been drinking fluids. Pt denies fever, hematomesis, or billious vomitin, abdominal pain. lower back pain, urinary symptoms. He had a normal BM this morning. Hx obtained. Pt with tenderness over the epigastric abdomen, Pt with Hx of vomiting and GERD. Pt has been taking a antiemetic w/o any relief. Pt doens't seem dehydrated. EKG:NSR, HR:76bpm, no ST elevations or depression. orthostatic : WNL. Pt's symptoms's discussed with /dr Lizama he recommended Benadryl PO and omeprazole PO. Pt tolerated well medications. Pt felt better.Pt Rx same medications. PT advised to increase fluid intake,small portions of soft meals, rest. However if symptoms worsen and abdominal pain develops to go Immediately to the ER for further management.Pt's BP is elevated today advised to decrease salt in diet, monitor BP and f/u with PCP for further management. Pt explained D/C instructions. Pt understood and agreed w/ plan of care. Pt left the clinic ambulating, A&OX3 and hemodynamically stable. - Differential Dx/Diagnosis Differential Diagnoses - Male: Appendicitis, Enterocolitis, Gastroenteritis ( Viral), Gastroenteritis (Bacterial), Vomiting, Diarrhea, Colitis, Dehydration Provider Diagnoses: 1- Acute nausea and vomiting. 2- GERD. 3- Uncontrolled HTN Condition At Discharge: Stable - Physician Notification/Consults Discussed Case/Management/Disposition Of Patient With: Lyle Lizama - DR Lizama agreed with Pt's plan of care. Discharge - Discharge Plan Condition: Stable Disposition: HOME Prescriptions: diPHENhydraMINE PO* [Benadryl PO 25 MG TAB*] 25 mg PO Q6H PRN #20 tab PRN Reason: Vomiting Omeprazole CAP* [Prilosec CAP* 20 MG] 20 mg PO DAILY #30 cap.dr Patient Education Materials: Acute Nausea and Vomiting (ED), Low Sodium Diet ( ED) Referrals: Tran Clayton MD [Primary Care Provider] - 2 Days Additional Instructions: 1- Please increase fluid intake with Gatorade or Pedialyte OTC. eat soft meals and rest. 2- Take the diphenhydramine PO as directed to alleviate nausea and vomiting. Take the Omeprazole PO to alleviate epigastric burning. 3- If you develops fever or abdominal pain w/ recurrent episodes of diarrhea please go the ER, otherwise f/u with your PCP if diarrhea not resolving in 2-3 days 4- Your BP is elevated today please decrease salt in your diet, monitor BP at home, if it continues to be elevated please f/u with your PCP for further management.
[2017-07-30] MEDS ORDERED: diPHENhydraMINE PO* 25 MG PO ONE (11:43)
[2017-07-30] MEDS ORDERED: Omeprazole CAP* 20 MG PO ONE (11:43)
[2017-07-30 11:48] VITALS: BP 163/86
== END 2017-07-30 12:10 | disposition home or self-care (01) ==
LOC: UCEAST 09:52
DX: R11.2 Nausea with vomiting, unspecified (principal); K21.9 Gastro-esophageal reflux disease without esophagitis; I10 Essential (primary) hypertension; E03.9 Hypothyroidism, unspecified; Z86.718 Personal history of other venous thrombosis and embolism; R56.9 Unspecified convulsions; F32.9 Major depressive disorder, single episode, unspecified; F43.10 Post-traumatic stress disorder, unspecified; Z90.49 Acquired absence of other specified parts of digestive tract; Z87.891 Personal history of nicotine dependence
CPT/HCPCS: 93005; 99213; A9270-GY; G0463

== ENCOUNTER 2017-07-30 18:05 | Emergency (ER) | payer MEDICARE, MEDICAID ==
[2017-07-30] MEDS ORDERED: Metoclopramide IV* 5 MG/ML 2 ML VIAL IV ONE (18:52)
[2017-07-30] MEDS ORDERED: Morphine INJ* 4 MG/ML 1 ML CARPUJECT IV ONE (18:53)
[2017-07-30] MEDS: NS 0.9% 1000 ML* 2,000 ML IV ONE (20:26)
[2017-07-30 20:29] LABS: Hematocrit 43 % (42-52); Hemoglobin 14.9 g/dl (14.0-18.0); Mean Corpuscular HGB Conc 35 g/dl (31-36); Mean Corpuscular Hemoglobin 33 pg (27-31); Mean Corpuscular Volume 94 fL (80-94); Mean Platelet Volume 8 um3 (7.4-10.4); Red Blood Count 4.55 10^6/ul (4.0-5.4); Red Cell Distribution Width 13 % (10.5-15); White Blood Count 8.4 10^3/ul (3.5-10.8)
[2017-07-30 20:43] LABS: Albumin 4.4 g/dL (3.2-5.2); BUN/Creatinine Ratio 21.8 (8-20); Calcium 9.5 mg/dL (8.6-10.3); EGFR African American 78.4 (>60); Globulin 2.7 g/dL (2-4); Potassium 3.8 mmol/L (3.5-5.0); Total Bilirubin 0.5 mg/dL (0.2-1.0); Total Protein 7.1 g/dL (6.4-8.9)
[2017-07-30 20:45] LABS: Troponin I 0.02 ng/mL (<0.04)
--- NOTE | 2017-07-30 20:53 | ED ---
Abdominal Pain/Male - HPI Summary HPI Summary: 51M presents with vomiting for a couple days. He states he has a history of such and that is improves and then gets worst. He was given prescription for nausea medication but can remember the name. He has been having decreased appetite. He has a burning sensation in his lower abdomen. He has had his gallbladder and appendix removed. He has history of SBO. He denies any fever, lower back pain, dysuria, urgency or frequency. He denies any diarrhea or constipation. he was not able to keep down his omeprazole. - History of Current Complaint Chief Complaint: EDNauseaVomitDiarrh Stated Complaint: GENERAL ILLNESS Time Seen by Provider: 07/30/17 18:39 Pain Intensity: 8 - Allergies/Home Medications Allergies/Adverse Reactions: Allergies Allergy/AdvReac Type Severity Reaction Status Date / Time No Known Allergies Allergy Verified 07/30/17 10:17 PMH/Surg Hx/FS Hx/Imm Hx Endocrine/Hematology History: Reports: Hx Thyroid Disease, Hx Anemia Denies: Hx Anticoagulant Therapy, Hx Diabetes, Hx Systemic Lupus Erythematosus Cardiovascular History: Reports: Hx Hypercholesterolemia, Other Cardiovascular Problems/Disorders - HYPERLIPIDEMIA Denies: Hx Congestive Heart Failure, Hx Hypertension, Hx Pacemaker/ICD Respiratory History: Reports: Hx Chronic Bronchitis Denies: Hx Asthma, Hx Chronic Obstructive Pulmonary Disease (COPD) Comment Only: Other Respiratory Problems/Disorders - Sarcoidosis GI History: Reports: Hx Gastroesophageal Reflux Disease, Hx Irritable Bowel, Hx Obstructive Bowel - Small bowel, Other GI Disorders - CYST REMOVED FROM BLADDER , LATE Denies: Hx Ulcer History: Reports: Hx Benign Prostatic Hyperplasia, Hx Kidney Stones, Hx Renal Disease - LEFT KIDNEY DECREASE IN FUNCTION, Other Problems/Disorders - HX OF CYST IN THE BLADDER Denies: Hx Dialysis Musculoskeletal History: Reports: Other Musculoskeletal History - Sarcoidosis Denies: Hx Rheumatoid Arthritis Sensory History: Reports: Hx Contacts or Glasses Denies: Hx Hearing Aid, Hx Hearing Problem Opthamlomology History: Reports: Hx Contacts or Glasses Neurological History: Reports: Hx Headaches, Hx Seizures, Other Neuro Impairments/Disorders - "light concussion" Psychiatric History: Reports: Hx Anxiety, Hx Depression, Hx Post Traumatic Stress Disorder, Hx Inpatient Treatment, Hx Community Mental Health Tx, Hx Schizophrenia, Hx Suicide Attempt, Hx of Violent Episodes Against Others, Hx Substance Abuse, Other Psychiatric Issues/Disorders Denies: Hx Eating Disorder, Hx Panic Disorder - Cancer History Hx Chemotherapy: No - Surgical History Surgery Procedure, Year, and Place: 2008 [place]EN[place] [facility] [place]ST [place] FROM [place]ADDER, [facility] [place]12/[place] Hx Anesthesia Reactions: No - Immunization History Date of Tetanus Vaccine: Unknown Date of Influenza Vaccine: Fall 2013 Infectious Disease History: No Infectious Disease History: Denies: Hx Clostridium Difficile, Hx Hepatitis, Hx Human Immunodeficiency Virus (HIV), Hx of Known/Suspected MRSA, Hx Shingles, Hx Tuberculosis, Hx Known/ Suspected VRE, Hx Known/Suspected VRSA, History Other Infectious Disease, Traveled Outside the [place] in Last 30 Days - Family History Known Family History: Positive: Cardiac Disease, Hypertension, Seizure Disorder - sister, Other - cancer - Social History Alcohol Use: None Alcohol Amount: stopped 4 years ago Hx Substance Use: No Substance Use Type: Reports: None Substance Use Comment - Amount & Last Used: pt states he has not used any drugs since 2011. Hx Tobacco Use: Yes Smoking Status (MU): Former Smoker Type: Cigarettes Length of Time of Smoking/Using Tobacco: 20YRS Have You Smoked in the Last Year: No Review of Systems Negative: Fever Negative: Chest Pain Negative: Shortness Of Breath Positive: Abdominal Pain, Vomiting, Nausea. Negative: Diarrhea All Other Systems Reviewed And Are Negative: Yes Physical Exam Triage Information Reviewed: Yes Vital Signs On Initial Exam: Initial Vitals Temp Pulse Resp BP Pulse Ox 99.3 F 84 20 138/75 92 07/30/17 18:11 07/30/17 18:11 07/30/17 18:11 07/30/17 18:11 07/30/17 18:11 Vital Signs Reviewed: Yes Appearance: Positive: Well-Appearing Skin: Positive: Warm, Dry Head/Face: Positive: Normal Head/Face Inspection Eyes: Positive: Normal, Conjunctiva Clear Respiratory/Lung Sounds: Positive: Clear to Auscultation, Breath Sounds Present Cardiovascular: Positive: Normal, RRR Abdomen Description: Positive: Soft, Other: Bowel Sounds: Positive: Present Diagnostics - Vital Signs Vital Signs Temp Pulse Resp BP Pulse Ox 07/30/17 20:26 20 07/30/17 20:06 97 96 07/30/17 20:00 127/88 07/30/17 19:55 82 88 07/30/17 19:30 80 113/82 91 07/30/17 19:00 80 113/87 94 07/30/17 18:34 78 94 07/30/17 18:11 99.3 F 84 20 138/75 92 - Laboratory Lab Results: Lab Results 07/30/17 07/30/17 07/30/17 Range/Units 20:20 20:20 20:20 WBC 8.4 (3.5-10.8) 10^3/ul RBC 4.55 (4.0-5.4) 10^6/ul Hgb 14.9 (14.0-18.0) g/dl Hct 43 (42-52) % MCV 94 (80-94) fL MCH 33 H (27-31) pg MCHC 35 (31-36) g/dl RDW 13 (10.5-15) % Plt Count 297 (150-450) 10^3/ul MPV 8 (7.4-10.4) um3 Neut % (Auto) 74.5 (38-83) % Lymph % (Auto) 14.9 L (25-47) % Stanton % (Auto) 7.2 (1-9) % Eos % (Auto) 1.5 (0-6) % Baso % (Auto) 1.9 (0-2) % Absolute Neuts (auto) 6.2 (1.5-7.7) 10^3/ul Absolute Lymphs (auto) 1.2 (1.0-4.8) 10^3/ul Absolute Monos (auto) 0.6 (0-0.8) 10^3/ul Absolute Eos (auto) 0.1 (0-0.6) 10^3/ul Absolute Basos (auto) 0.2 (0-0.2) 10^3/ul Absolute Nucleated RBC 0.03 10^3/ul Nucleated RBC % 0.3 Sodium 136 (133-145) mmol/L Potassium 3.8 (3.5-5.0) mmol/L Chloride 106 (101-111) mmol/L Carbon Dioxide 21 L (22-32) mmol/L Anion Gap 9 (2-11) mmol/L BUN 27 H (6-24) mg/dL Creatinine 1.24 H (0.67-1.17) mg/dL Est GFR ( Amer) 78.4 (>60) Est GFR (Non-Af Amer) 61.0 (>60) BUN/Creatinine Ratio 21.8 H (8-20) Glucose 101 H (70-100) mg/dL Lactic Acid 0.6 (0.5-2.0) mmol/L Calcium 9.5 (8.6-10.3) mg/dL Total Bilirubin 0.50 (0.2-1.0) mg/dL AST 18 (13-39) U/L ALT 19 (7-52) U/L Alkaline Phosphatase 81 (34-104) U/L Troponin I 0.02 (<0.04) ng/mL C-React Prot High Sens 4.54 mg/L Total Protein 7.1 (6.4-8.9) g/dL Albumin 4.4 (3.2-5.2) g/dL Globulin 2.7 (2-4) g/dL Albumin/Globulin Ratio 1.6 (1-3) Lipase 49 (11.0-82.0) U/L Result Diagrams: 07/30/17 20:20 07/30/17 20:20 Lab Statement: Any lab studies that have been ordered have been reviewed, and results considered in the medical decision making process. - CT abd CT Interpretation: Positive (See Comments) - no bowel obsgtruction, no diverticuiltis, bladder overdistented CT Interpretation Completed By: Radiologist Re-Evaluation - Re-Evaluation First Eval Re-Evaluation Time: 21:50 Change: Improved Comment: no longer nausous, feeling better Abdominal Pain Fem Course/Dx - Course Course Of Treatment: 51M presents with vomiting for a couple days. He states he has a history of such and that is improves and then gets worst. He was given prescription for nausea medication but can remember the name. He has been having decreased appetite. He has a burning sensation in his lower abdomen. He has had his gallbladder and appendix removed. He has history of SBO. He denies any fever, lower back pain, dysuria, urgency or frequency. He denies any diarrhea or constipation. he was not able to keep down his omeprazole. on exam has tenderness bilateral lower quadrant. labs wbc and crp normal. CT no bowel obstruction or diverticulitis. urinary bladder overdistended. bladder scan shows 600 but patient refused catheters. states can urinate on own. will follow up with his urologist. patient understand and agrees with plan. - Diagnoses Differential Diagnosis/HQI/PQRI: Bowel Obstruction, Peptic Ulcer Disease, Urinary Tract Infection Provider Diagnoses: Abdominal pain, Vomiting, Urinary retention Discharge - Discharge Plan Condition: Good Disposition: HOME Patient Education Materials: Acute Nausea and Vomiting (ED) Referrals: Tran Clayton MD [Primary Care Provider] - Deniz Lee MD [Medical Doctor] - Additional Instructions: Take nausea and omeprazole as prescribed Follow up with primary Take Tylenol for pain every 6 hours Return to ED if develop any new or worsening symptoms
[2017-07-30] MEDS ORDERED: Iohexol 300* (CONTRAST) 10 ML SDV IV ONE (22:17)
[2017-07-31 00:05] VITALS: BP 133/83
[2017-07-31 00:36] LABS: Urine Bilirubin Negative (Negative); Urine Glucose Negative (Negative); Urine Nitrite Negative (Negative)
--- NOTE | 2017-07-31 07:56 | RAD ---
INDICATION: Lower abdominal pain, history of small bowel obstruction. COMPARISON: Comparison is made with a prior CT of the abdomen and pelvis from September 30, 2016. TECHNIQUE: A CT scan of the abdomen and pelvis was performed with intravenous and oral contrast following intravenous injection of 119 ml of Omnipaque 300 nonionic contrast. Contiguous axial sections were obtained from the lung bases through the symphysis pubis. Images were reconstructed in the coronal and sagittal planes. FINDINGS: There is mild dependent bilateral lower lobe subsegmental atelectasis. No pleural effusion is present. The liver and spleen are normal in size. The liver is decreased in attenuation consistent with fatty infiltration. No significant focal abnormality is seen. The patient is status post cholecystectomy. The pancreas appears to be within normal limits in size. The adrenal glands appear to be within normal limits. There is a small severely atrophic left kidney. No hydronephrosis is seen. No significant focal renal abnormality is seen. The urinary bladder is distended. There is thickening of the wall of the bladder which is slightly more prominent on the left side which appears similar to the prior study. The aorta is normal in caliber and demonstrates homogeneous contrast opacification. No significant enlarged retroperitoneal lymph nodes are seen. There is a small hiatal hernia. The stomach, small and large bowel appear nondistended. The patient is status post appendectomy by history. There is mild sigmoid diverticulosis. There is no evidence for diverticulitis or colitis. No free intraperitoneal air or fluid is seen. No significant focal osseous abnormality is seen. IMPRESSION: 1. ATROPHIC LEFT KIDNEY. 2. THICKENING OF THE WALL OF THE URINARY BLADDER LIKELY DUE TO OUTLET OBSTRUCTION LESS LIKELY A MASS. RECOMMEND CLINICAL CORRELATION. 3. HEPATIC STEATOSIS. 4. STATUS POST CHOLECYSTECTOMY AND APPENDECTOMY.
== END 2017-07-31 00:43 | disposition home or self-care (01) ==
LOC: ED 18:05
DX: R10.9 Unspecified abdominal pain (principal); R11.10 Vomiting, unspecified; R33.9 Retention of urine, unspecified
CPT/HCPCS: 36415; 74177; 80053; 81003; 83605; 83690; 84484; 85025; 86141; 96361; 96374; 96375; 99283; J2270; J2765; Q9967

== ENCOUNTER 2017-08-07 14:44 | Emergency (ER) | payer MEDICARE, MEDICAID ==
[2017-08-07] MEDS ORDERED: predniSONE TAB* 20 MG PO ONE (14:56)
[2017-08-07] MEDS ORDERED: Albuterol/Ipratropium NEB.SOL* Albuterol 2.5 MG/Ipratropium 0.5 MG 3 ML INH ONE ×2 (14:56→14:58)
--- NOTE | 2017-08-07 15:40 | RAD ---
INDICATION: Chest tightness. Cough. COMPARISON: July 16, 2016 TECHNIQUE: PA and lateral dual-energy views were obtained. FINDINGS: Bones/Soft Tissues: There are no acute bony findings. Cardiomediastinal: The cardiomediastinal silhouette is normal. Lungs: There are no infiltrates. Pleura: There are no pleural effusions. Other: None IMPRESSION: NORMAL CHEST
[2017-08-07 16:30] VITALS: BP 159/77
--- NOTE | 2017-08-07 16:41 | ED ---
I, Val Burgos, scribed for John Hong MD on 08/07/17 at 1505 . Influenza-Like Illness - HPI Summary HPI Summary: Pt is a 56 y/o M BIBA with c/o influenza-like symptoms for the past 2 days. Symptoms include chest pain (described as tightness), cough, congestion, body aches, SOB, and rhinorrhea. Pt denies fever. Pt tested positive for influenza by paramedics and was referred from PCP. I spoke to PCP who states perhaps there is some change in V1 on ECG there. Pt is frequent visitor both there and here. Was seen for some abdominal pain there yesterday. She was worried given he is a smoker and had O2 sats ~ 92%. - History of Current Complaint Chief Complaint: EDFluSymptoms Time Seen by Provider: 08/07/17 14:50 Hx Obtained From: Patient Onset/Duration: Lasting Days - 2, Still Present Associated Signs & Symptoms: Myalgia, Cough, Nasal Congestion - Allergy/Home Medications Allergies/Adverse Reactions: Allergies Allergy/AdvReac Type Severity Reaction Status Date / Time No Known Allergies Allergy Verified 07/30/17 10:17 PMH/Surg Hx/FS Hx/Imm Hx Previously Healthy: No Endocrine/Hematology History: Reports: Hx Thyroid Disease, Hx Anemia Denies: Hx Anticoagulant Therapy, Hx Diabetes, Hx Systemic Lupus Erythematosus Cardiovascular History: Reports: Hx Hypercholesterolemia, Other Cardiovascular Problems/Disorders - HYPERLIPIDEMIA Denies: Hx Congestive Heart Failure, Hx Hypertension, Hx Pacemaker/ICD Respiratory History: Reports: Hx Chronic Bronchitis Denies: Hx Asthma, Hx Chronic Obstructive Pulmonary Disease (COPD) Comment Only: Other Respiratory Problems/Disorders - Sarcoidosis GI History: Reports: Hx Gastroesophageal Reflux Disease, Hx Irritable Bowel, Hx Obstructive Bowel - Small bowel, Other GI Disorders - CYST REMOVED FROM BLADDER , LATE Denies: Hx Ulcer History: Reports: Hx Benign Prostatic Hyperplasia, Hx Kidney Stones, Hx Renal Disease - LEFT KIDNEY DECREASE IN FUNCTION, Other Problems/Disorders - HX OF CYST IN THE BLADDER Denies: Hx Dialysis Musculoskeletal History: Reports: Other Musculoskeletal History - Sarcoidosis Denies: Hx Rheumatoid Arthritis Sensory History: Reports: Hx Contacts or Glasses Denies: Hx Hearing Aid, Hx Hearing Problem Opthamlomology History: Reports: Hx Contacts or Glasses Neurological History: Reports: Hx Headaches, Hx Seizures, Other Neuro Impairments/Disorders - "light concussion" Psychiatric History: Reports: Hx Anxiety, Hx Depression, Hx Post Traumatic Stress Disorder, Hx Inpatient Treatment, Hx Community Mental Health Tx, Hx Schizophrenia, Hx Suicide Attempt, Hx of Violent Episodes Against Others, Hx Substance Abuse, Other Psychiatric Issues/Disorders Denies: Hx Eating Disorder, Hx Panic Disorder - Cancer History Hx Chemotherapy: No - Surgical History Surgery Procedure, Year, and Place: 2008 [place]EN[place] [facility] [place] [facility] [place] Hx Anesthesia Reactions: No - Immunization History Date of Tetanus Vaccine: Unknown Date of Influenza Vaccine: Fall 2013 Infectious Disease History: No Infectious Disease History: Denies: Hx Clostridium Difficile, Hx Hepatitis, Hx Human Immunodeficiency Virus (HIV), Hx of Known/Suspected MRSA, Hx Shingles, Hx Tuberculosis, Hx Known/ Suspected VRE, Hx Known/Suspected VRSA, History Other Infectious Disease, Traveled Outside the [place] in Last 30 Days - Family History Known Family History: Positive: Cardiac Disease, Hypertension, Seizure Disorder - sister, Other - cancer - Social History Alcohol Use: None Alcohol Amount: stopped 4 years ago Hx Substance Use: No Substance Use Type: Reports: None Substance Use Comment - Amount & Last Used: pt states he has not used any drugs since 2011. Hx Tobacco Use: Yes Smoking Status (MU): Former Smoker Type: Cigarettes Length of Time of Smoking/Using Tobacco: 20YRS Have You Smoked in the Last Year: No Review of Systems Negative: Fever Positive: Nasal Discharge, Other - congestion Positive: Chest Pain Positive: Shortness Of Breath, Cough Positive: Other - body aches All Other Systems Reviewed And Are Negative: Yes Physical Exam - Summary Physical Exam Summary: Appearance: Well appearing, no pain distress Skin: warm, dry, reflects adequate perfusion Head/face: normal Eyes: EOMI, YANIRA ENT: Rhinorrhea Neck: supple, non-tender Respiratory: Diminished in left upper lobe, breath sounds present Cardiovascular: RRR, pulses symmetrical Abdomen: non-tender, soft Bowel: present Musculoskeletal: normal, strength/ROM intact Neuro: normal, sensory motor intact, A&Ox3 Triage Information Reviewed: Yes Vital Signs On Initial Exam: Initial Vitals Temp Pulse Resp BP Pulse Ox 97.9 F 84 16 125/74 96 08/07/17 14:57 08/07/17 14:57 08/07/17 14:57 08/07/17 14:57 08/07/17 14:57 Vital Signs Reviewed: Yes Diagnostics - Vital Signs Vital Signs Temp Pulse Resp BP Pulse Ox 08/07/17 14:57 97.9 F 84 16 125/74 96 - Laboratory Lab Results: Lab Results 08/07/17 Range/Units 15:05 Influenza A (Rapid) Negative (Negative) Influenza B (Rapid) Negative (Negative) Lab Statement: Any lab studies that have been ordered have been reviewed, and results considered in the medical decision making process. - Radiology CXR Xray Interpretation: No Acute Changes Radiology Interpretation Completed By: Radiologist - Negative - EKG 15:41 EKG Rhythm: Sinus Rhythm ST Segment: Normal EKG Interpretation: Nml axis, nml LVH criteria. 87 BPM Re-Evaluation - Re-Evaluation First Eval Re-Evaluation Time: 15:43 Change: Improved Comment: 02 saturation at 96-98% on room air and has improved breathing. Flu Symptom Course/Dx - Course Course Of Treatment: Pt with hx of smoking and with some cough and chest tightness. No acute changes on ECG. V1 here is wnl. CXR and flu testing neg. Improved with breathing tx. Started steroid. Will add abx given his likely underlying COPD. 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 Use a humidifier while sleeping if you have one. Return with fever , trouble breathing, uncontrolled cough or wheezing, worse or other concerns. The documentation as recorded by the Aubrey farah Stephanie accurately reflects the service I personally performed and the decisions made by me, John Hong MD.
== END 2017-08-07 16:30 | disposition home or self-care (01) ==
LOC: ED 14:44
DX: J44.1 Chronic obstructive pulmonary disease with (acute) exacerbation (principal); R07.89 Other chest pain; F81.9 Developmental disorder of scholastic skills, unspecified; F60.7 Dependent personality disorder; F20.9 Schizophrenia, unspecified; Z87.891 Personal history of nicotine dependence; E78.00 Pure hypercholesterolemia, unspecified; E78.5 Hyperlipidemia, unspecified; K21.9 Gastro-esophageal reflux disease without esophagitis
CPT/HCPCS: 71020; 87502; 93005; 94640; 99283; A9270-GY; J7512

== ENCOUNTER 2017-08-16 11:22 | Emergency (ER) | payer MEDICARE, MEDICAID ==
[2017-08-16 11:49] LABS: ABS Basophils 0.1 10^3/ul (0-0.2); ABS Eosinophils 0.2 10^3/ul (0-0.6); ABS Monocytes 0.6 10^3/ul (0-0.8); ABS Neutrophils 4.1 10^3/ul (1.5-7.7); ABS Nucleated RBC 0 10^3/ul; Eosinophil % 3.3 % (0-6); Hematocrit 41 % (42-52); Hemoglobin 14.3 g/dl (14.0-18.0); Lymphocyte % 17.2 % (25-47); Mean Corpuscular HGB Conc 35 g/dl (31-36); Mean Corpuscular Hemoglobin 33 pg (27-31); Mean Corpuscular Volume 95 fL (80-94); Mean Platelet Volume 8 um3 (7.4-10.4); Nucleated Red Blood Cells % 0; Platelet Count 261 10^3/ul (150-450); Red Blood Count 4.37 10^6/ul (4.0-5.4); Red Cell Distribution Width 13 % (10.5-15)
[2017-08-16] MEDS ORDERED: methylPREDNISolone 125 MG* 2 ML VIAL IV ONE (12:11)
[2017-08-16] MEDS ORDERED: Albuterol/Ipratropium NEB.SOL* Albuterol 2.5 MG/Ipratropium 0.5 MG 3 ML INH PRN (12:11)
[2017-08-16 12:20] LABS: EGFR Non-African American 60.4 (>60)
--- NOTE | 2017-08-16 12:24 | RAD ---
INDICATION: Chest pain in a patient with hyperlipidemia COMPARISON: Most recent comparison chest x-rays dated August 07, 2017 TECHNIQUE: PA and lateral views of the chest were obtained. FINDINGS: The heart and mediastinum are normal in size and contour. The lungs are grossly clear. There is no evidence of large pleural effusion. Visualized bones are normal for the patient's age. There is no radiographic evidence of free air beneath the diaphragm IMPRESSION: No radiographic evidence of acute cardiopulmonary disease.
[2017-08-16 16:11] VITALS: BP 131/76
--- NOTE | 2017-08-16 16:23 | ED ---
Martin John Tecjoon, scribed for Antolin Dunham MD on 08/16/17 at 1157 . Shortness of Breath - HPI Summary HPI Summary: This patient is a 51 year old male presenting to [facility] with a chief complaint of SOB since 1014 today. Patient used inhaler, which curbed sx. Patient additionally reports diffuse chest pain since yesterday. The pain is described as pressure-like. The pain is rated 4/10 in severity. Symptoms aggravated by nothing. Symptoms alleviated by inhaler. Patient denies cough, fever. Patient notes sx are similar to COPD dx. Patient is a former smoker. - History of Current Complaint Chief Complaint: EDChestPainROMI Time Seen by Provider: 08/16/17 11:27 Hx Obtained From: Patient Onset/Duration: Sudden Onset, Lasting Hours - since 1014 Timing: Constant Current Severity: Mild - 4/10 Aggrevating Factors: Nothing Alleviating Factors: Other - inhaler Associated Signs & Symptoms: Negative - cough, fever, Chest Pain Unrelated to Cough Related History: Similar Episode - COPD dx - Allergy/Home Medications Allergies/Adverse Reactions: Allergies Allergy/AdvReac Type Severity Reaction Status Date / Time No Known Allergies Allergy Verified 08/16/17 11:46 PMH/Surg Hx/FS Hx/Imm Hx Previously Healthy: No Endocrine/Hematology History: Reports: Hx Thyroid Disease, Hx Anemia Denies: Hx Anticoagulant Therapy, Hx Diabetes, Hx Systemic Lupus Erythematosus Cardiovascular History: Reports: Hx Hypercholesterolemia, Other Cardiovascular Problems/Disorders - HYPERLIPIDEMIA Denies: Hx Congestive Heart Failure, Hx Hypertension, Hx Pacemaker/ICD Respiratory History: Reports: Hx Chronic Bronchitis, Hx Chronic Obstructive Pulmonary Disease (COPD) Denies: Hx Asthma Comment Only: Other Respiratory Problems/Disorders - Sarcoidosis GI History: Reports: Hx Gastroesophageal Reflux Disease, Hx Irritable Bowel, Hx Obstructive Bowel - Small bowel, Other GI Disorders - CYST REMOVED FROM BLADDER , LATE Denies: Hx Ulcer History: Reports: Hx Benign Prostatic Hyperplasia, Hx Kidney Stones, Hx Renal Disease - LEFT KIDNEY DECREASE IN FUNCTION, Other Problems/Disorders - HX OF CYST IN THE BLADDER Denies: Hx Dialysis Musculoskeletal History: Reports: Other Musculoskeletal History - Sarcoidosis Denies: Hx Rheumatoid Arthritis Sensory History: Reports: Hx Contacts or Glasses Denies: Hx Hearing Aid, Hx Hearing Problem Opthamlomology History: Reports: Hx Contacts or Glasses Neurological History: Reports: Hx Headaches, Hx Seizures, Other Neuro Impairments/Disorders - "light concussion" Psychiatric History: Reports: Hx Anxiety, Hx Depression, Hx Post Traumatic Stress Disorder, Hx Inpatient Treatment, Hx Community Mental Health Tx, Hx Schizophrenia, Hx Suicide Attempt, Hx of Violent Episodes Against Others, Hx Substance Abuse, Other Psychiatric Issues/Disorders Denies: Hx Eating Disorder, Hx Panic Disorder - Cancer History Hx Chemotherapy: No - Surgical History Surgery Procedure, Year, and Place: 2008 APPENDECTOMY, [facility] [place] CYST REMOVED FROM BLADDER, [facility] [place] CHOLECYSTECTOMY-12/2012 Hx Anesthesia Reactions: No - Immunization History Date of Tetanus Vaccine: Unknown Date of Influenza Vaccine: Fall 2013 Infectious Disease History: No Infectious Disease History: Denies: Hx Clostridium Difficile, Hx Hepatitis, Hx Human Immunodeficiency Virus (HIV), Hx of Known/Suspected MRSA, Hx Shingles, Hx Tuberculosis, Hx Known/ Suspected VRE, Hx Known/Suspected VRSA, History Other Infectious Disease, Traveled Outside the [place] in Last 30 Days - Family History Known Family History: Positive: Cardiac Disease, Hypertension, Seizure Disorder - sister, Other - cancer - Social History Alcohol Use: None Alcohol Amount: stopped 4 years ago Hx Substance Use: Yes Substance Use Type: Reports: None Substance Use Comment - Amount & Last Used: pt states he has not used any drugs since 2011. Hx Tobacco Use: Yes Smoking Status (MU): Former Smoker Type: Cigarettes Length of Time of Smoking/Using Tobacco: 20YRS Have You Smoked in the Last Year: No Review of Systems Negative: Fever Positive: Chest Pain Positive: Shortness Of Breath. Negative: Cough All Other Systems Reviewed And Are Negative: Yes Physical Exam - Summary Physical Exam Summary: VITAL SIGNS: Reviewed. GENERAL: Patient is a well-developed and nourished male who is lying comfortable in the stretcher. Patient is not in any acute respiratory distress. HEAD AND FACE: No signs of trauma. No ecchymosis, hematomas or skull depressions. No sinus tenderness. EYES: PERRLA, EOMI x 2, No injected conjunctiva, no nystagmus. EARS: Hearing grossly intact. Ear canals and tympanic membranes are within normal limits. MOUTH: Oropharynx within normal limits. NECK: Supple, trachea is midline, no adenopathy, no JVD, no carotid bruit, no c- spine tenderness, neck with full ROM. CHEST: Symmetric, no tenderness at palpation LUNGS: Decreased breath sounds bilaterally. CVS: Regular rate and rhythm, S1 and S2 present, no murmurs or gallops appreciated. ABDOMEN: Soft, non-tender. No signs of distention. No rebound no guarding, and no masses palpated. Bowel sounds are normal. EXTREMITIES: FROM in all major joints, no edema, no cyanosis or clubbing. NEURO: Alert and oriented x 3. No acute neurological deficits. Speech is normal and follows commands. SKIN: Dry and warm Triage Information Reviewed: Yes Vital Signs On Initial Exam: Initial Vitals Temp Pulse Resp BP Pulse Ox 97.2 F 78 20 108/62 94 08/16/17 11:23 08/16/17 11:23 08/16/17 11:23 08/16/17 11:23 08/16/17 11:23 Vital Signs Reviewed: Yes - Luis Coma Scale Coma Scale Total: 15 Diagnostics - Vital Signs Vital Signs Temp Pulse Resp BP Pulse Ox 08/16/17 11:46 97 08/16/17 11:23 97.2 F 78 20 108/62 94 - Laboratory Lab Results: Lab Results 08/16/17 08/16/17 08/16/17 Range/Units 11:44 11:44 11:44 WBC (3.5-10.8) 10^3/ul RBC (4.0-5.4) 10^6/ul Hgb (14.0-18.0) g/dl Hct (42-52) % MCV (80-94) fL MCH (27-31) pg MCHC (31-36) g/dl RDW (10.5-15) % Plt Count (150-450) 10^3/ul MPV (7.4-10.4) um3 Neut % (Auto) (38-83) % Lymph % (Auto) (25-47) % Cottle % (Auto) (1-9) % Eos % (Auto) (0-6) % Baso % (Auto) (0-2) % Absolute Neuts (auto) (1.5-7.7) 10^3/ul Absolute Lymphs (auto) (1.0-4.8) 10^3/ul Absolute Monos (auto) (0-0.8) 10^3/ul Absolute Eos (auto) (0-0.6) 10^3/ul Absolute Basos (auto) (0-0.2) 10^3/ul Absolute Nucleated RBC 10^3/ul Nucleated RBC % APTT 49.1 H (26.0-36.3) seconds Sodium 135 (133-145) mmol/L Potassium 4.2 (3.5-5.0) mmol/L Chloride 105 (101-111) mmol/L Carbon Dioxide 24 (22-32) mmol/L Anion Gap 6 (2-11) mmol/L BUN 25 H (6-24) mg/dL Creatinine 1.25 H (0.67-1.17) mg/dL Est GFR ( Amer) 77.7 (>60) Est GFR (Non-Af Amer) 60.4 (>60) BUN/Creatinine Ratio 20.0 (8-20) Glucose 105 H (70-100) mg/dL Lactic Acid (0.5-2.0) mmol/L Calcium 9.3 (8.6-10.3) mg/dL Magnesium 2.1 (1.9-2.7) mg/dL Total Bilirubin 0.40 (0.2-1.0) mg/dL AST 15 (13-39) U/L ALT 18 (7-52) U/L Alkaline Phosphatase 64 (34-104) U/L Total Creatine Kinase 59 (10-223) U/L CK-MB (CK-2) 3.0 (0.6-6.3) ng/mL Troponin I 0.01 (<0.04) ng/mL B-Natriuretic Peptide 23 ( - 100) pg/mL Total Protein 6.4 (6.4-8.9) g/dL Albumin 4.0 (3.2-5.2) g/dL Globulin 2.4 (2-4) g/dL Albumin/Globulin Ratio 1.7 (1-3) TSH 0.96 (0.34-5.60) mcIU/mL Thyroxine (T4) 10.15 (6.09-12.23) mcg/mL 08/16/17 08/16/17 08/16/17 Range/Units 11:44 11:44 15:00 WBC 6.0 (3.5-10.8) 10^3/ul RBC 4.37 (4.0-5.4) 10^6/ul Hgb 14.3 (14.0-18.0) g/dl Hct 41 L (42-52) % MCV 95 H (80-94) fL MCH 33 H (27-31) pg MCHC 35 (31-36) g/dl RDW 13 (10.5-15) % Plt Count 261 (150-450) 10^3/ul MPV 8 (7.4-10.4) um3 Neut % (Auto) 68.4 (38-83) % Lymph % (Auto) 17.2 L (25-47) % Cottle % (Auto) 10.2 H (1-9) % Eos % (Auto) 3.3 (0-6) % Baso % (Auto) 0.9 (0-2) % Absolute Neuts (auto) 4.1 (1.5-7.7) 10^3/ul Absolute Lymphs (auto) 1.0 (1.0-4.8) 10^3/ul Absolute Monos (auto) 0.6 (0-0.8) 10^3/ul Absolute Eos (auto) 0.2 (0-0.6) 10^3/ul Absolute Basos (auto) 0.1 (0-0.2) 10^3/ul Absolute Nucleated RBC 0 10^3/ul Nucleated RBC % 0 APTT (26.0-36.3) seconds Sodium (133-145) mmol/L Potassium (3.5-5.0) mmol/L Chloride (101-111) mmol/L Carbon Dioxide (22-32) mmol/L Anion Gap (2-11) mmol/L BUN (6-24) mg/dL Creatinine (0.67-1.17) mg/dL Est GFR ( Amer) (>60) Est GFR (Non-Af Amer) (>60) BUN/Creatinine Ratio (8-20) Glucose (70-100) mg/dL Lactic Acid 0.9 (0.5-2.0) mmol/L Calcium (8.6-10.3) mg/dL Magnesium (1.9-2.7) mg/dL Total Bilirubin (0.2-1.0) mg/dL AST (13-39) U/L ALT (7-52) U/L Alkaline Phosphatase (34-104) U/L Total Creatine Kinase (10-223) U/L CK-MB (CK-2) (0.6-6.3) ng/mL Troponin I 0.01 (<0.04) ng/mL B-Natriuretic Peptide ( - 100) pg/mL Total Protein (6.4-8.9) g/dL Albumin (3.2-5.2) g/dL Globulin (2-4) g/dL Albumin/Globulin Ratio (1-3) TSH (0.34-5.60) mcIU/mL Thyroxine (T4) (6.09-12.23) mcg/mL Result Diagrams: 08/16/17 11:44 08/16/17 11:44 Lab Statement: Any lab studies that have been ordered have been reviewed, and results considered in the medical decision making process. - Radiology CXR Xray Interpretation: No Acute Changes - IMPRESSION: No radiographic evidence of acute cardiopulmonary disease. ED physician has reviewed this radiology report. Radiology Interpretation Completed By: Radiologist - EKG 1236 Cardiac Rate: NL EKG Rhythm: Sinus Rhythm - 62 BPM EKG Interpretation: NSR, No ST elevation Course/Dx - Course Course Of Treatment: This patient is a 51 year old male presenting to [facility] with a chief complaint of SOB since 1015 today. Patient used inhaler, which curbed sx. Patient additionally reports diffuse chest pain since yesterday. The pain is described as pressure-like. The pain is rated 4/10 in severity. Symptoms aggravated by nothing. Symptoms alleviated by inhaler. Patient denies cough, fever. Patient notes sx are similar to COPD dx. Patient is a former smoker. An EKG, taken 1236, reveals NSR (62 BPM), No ST elevation. CXR reveals, per radiologist, IMPRESSION: No radiographic evidence of acute cardiopulmonary disease. ED physician has reviewed this radiology report. Bloodwork Obtained. In the ED course the patient was given Albuterol, methylprednisolone. After medications patient is feeling better. Re-exam before discharge lungs with minimal whezzing much improved form initial exam. Patient ambulationg freely in the ED with out complaints of SOB. Patient will be discharged with COPD exacerbation and atypical chest pain, with a prescription for prednisone. Patient is advised to follow up with PCP in 3 days. The patient is agreeable with this plan. - Diagnoses Differential Diagnosis/HQI/PQRI: Positive: Asthma, Bronchitis, CHF, Chest Wall Pain, COPD Exacerbation, OR, Pneumonia, Pulmonary Edema Provider Diagnoses: COPD exacerbation, Atypical chest pain Discharge - Discharge Plan Condition: Stable Disposition: HOME Prescriptions: predniSONE TAB* [Deltasone TAB*] 40 mg PO DAILY #8 tab Patient Education Materials: Chest Pain (ED), COPD (Chronic Obstructive Pulmonary Disease) (ED) Referrals: Tran Clayton MD [Primary Care Provider] - 3 Days Additional Instructions: Patient will be _discharged with COPD exacerbation and atypical chest pain, with a prescription for prednisone. Patient is advised to follow up with PCP in 3 days. The patient is agreeable with this plan. Return to the ED for persisting or worsening symptoms. The documentation as recorded by the Martin farah Tecjoon accurately reflects the service I personally performed and the decisions made by Roly bishop Walter, MD.
== END 2017-08-16 16:11 | disposition home or self-care (01) ==
LOC: ED 11:22
DX: J44.1 Chronic obstructive pulmonary disease with (acute) exacerbation (principal); R07.89 Other chest pain; R06.02 Shortness of breath; Z86.79 Personal history of other diseases of the circulatory system
CPT/HCPCS: 36415; 71020; 80053; 82550; 82553; 83605; 83735; 83880; 84436; 84443; 84484; 85025; 85730; 93005; 94640; 96374; 99283; A9270-GY; J2930

== ENCOUNTER 2017-09-20 04:54 | Inpatient (IN) | payer MEDICARE, MEDICAID ==
[2017-09-20] MEDS ORDERED: Ondansetron ODT TAB* 4 MG PO ONE (04:58)
[2017-09-20 06:44] LABS: ABS Basophils 0.1 10^3/ul (0-0.2); ABS Eosinophils 0.2 10^3/ul (0-0.6); ABS Lymphocytes 0.9 10^3/ul (1.0-4.8); ABS Monocytes 0.6 10^3/ul (0-0.8); ABS Neutrophils 4.1 10^3/ul (1.5-7.7); ABS Nucleated RBC 0 10^3/ul; Eosinophil % 2.6 % (0-6); Hematocrit 42 % (42-52); Hemoglobin 14.5 g/dl (14.0-18.0); Lymphocyte % 15.4 % (25-47); Mean Corpuscular HGB Conc 34 g/dl (31-36); Mean Corpuscular Hemoglobin 32 pg (27-31); Mean Corpuscular Volume 94 fL (80-94); Mean Platelet Volume 8 um3 (7.4-10.4); Nucleated Red Blood Cells % 0.1; Platelet Count 259 10^3/ul (150-450); Red Blood Count 4.47 10^6/ul (4.0-5.4); Red Cell Distribution Width 13 % (10.5-15); White Blood Count 5.9 10^3/ul (3.5-10.8)
[2017-09-20 06:46] LABS: Urine Appearance Cloudy; Urine Blood 1+ (Negative); Urine Color Yellow; Urine Ketones Negative (Negative); Urine Protein Negative (Negative); Urine Specific Gravity 1.017 (1.010-1.030); Urine Urobilinogen Negative (Negative)
[2017-09-20 06:57] LABS: EGFR Non-African American 58.3 (>60)
--- NOTE | 2017-09-20 07:09 | ED ---
Jamie John Tiffany, scribed for Sha Altamirano MD on 09/20/17 at 0510 . Psychiatric Complaint - HPI Summary HPI Summary: This patient is a 51 year old M BIBA to [facility] with a chief complaint of auditory hallucinations since minutes ago. The patient states that the voices are telling him to hurt himself. He feels unsafe. Symptoms aggravated by nothing. Symptoms alleviated by nothing. Patient reports suicidal ideation. He denies substance use. Patient has history of schizophrenia. He took his medication as usual, but is still experiencing voices in his head. Patient has history of burning and scratching himself. He also reports abdominal pain and nausea. He denies vomiting. He requests pain medication for this pain. - History Of Current Complaint Hx Obtained From: Patient Onset/Duration: Lasting Minutes, Still Present Aggravating Factor(s): Nothing Alleviating Factor(s): Nothing Has Suicidal: Reports: Thoughts - Allergies/Home Medications Allergies/Adverse Reactions: Allergies Allergy/AdvReac Type Severity Reaction Status Date / Time No Known Allergies Allergy Verified 09/20/17 14:06 Home Medications: Home Medications Pantoprazole TAB (NF) [Protonix TAB (NF)] 40 mg PO DAILY 09/20/17 [History Confirmed 09/20/17] Ranitidine TAB (NF) [Zantac TAB (NF)] 300 mg PO DAILY 09/20/17 [History Confirmed 09/20/17] PMH/Surg Hx/FS Hx/Imm Hx Previously Healthy: No Endocrine/Hematology History: Reports: Hx Thyroid Disease, Hx Anemia Denies: Hx Anticoagulant Therapy, Hx Diabetes, Hx Systemic Lupus Erythematosus Cardiovascular History: Reports: Hx Hypercholesterolemia, Other Cardiovascular Problems/Disorders - HYPERLIPIDEMIA Denies: Hx Congestive Heart Failure, Hx Hypertension, Hx Pacemaker/ICD Respiratory History: Reports: Hx Chronic Bronchitis, Hx Chronic Obstructive Pulmonary Disease (COPD) Denies: Hx Asthma Comment Only: Other Respiratory Problems/Disorders - Sarcoidosis GI History: Reports: Hx Gastroesophageal Reflux Disease, Hx Irritable Bowel, Hx Obstructive Bowel - Small bowel, Other GI Disorders - CYST REMOVED FROM BLADDER , LATE Denies: Hx Ulcer History: Reports: Hx Benign Prostatic Hyperplasia, Hx Kidney Stones, Hx Renal Disease - LEFT KIDNEY DECREASE IN FUNCTION, Other Problems/Disorders - HX OF CYST IN THE BLADDER Denies: Hx Dialysis Musculoskeletal History: Reports: Other Musculoskeletal History - Sarcoidosis Denies: Hx Rheumatoid Arthritis Sensory History: Reports: Hx Contacts or Glasses Denies: Hx Hearing Aid, Hx Hearing Problem Opthamlomology History: Reports: Hx Contacts or Glasses Neurological History: Reports: Hx Headaches, Hx Seizures, Other Neuro Impairments/Disorders - "light concussion" Psychiatric History: Reports: Hx Anxiety, Hx Depression, Hx Post Traumatic Stress Disorder, Hx Inpatient Treatment, Hx Community Mental Health Tx, Hx Schizophrenia, Hx Suicide Attempt, Hx of Violent Episodes Against Others, Hx Substance Abuse, Other Psychiatric Issues/Disorders Denies: Hx Eating Disorder, Hx Panic Disorder - Cancer History Hx Chemotherapy: No - Surgical History Surgery Procedure, Year, and Place: 2008 APPENDECTOMY, [facility] [place] FROM BLADDER, [facility] [place]-12/2012 Hx Anesthesia Reactions: No - Immunization History Date of Tetanus Vaccine: Unknown Date of Influenza Vaccine: Fall 2013 Infectious Disease History: Denies: Hx Clostridium Difficile, Hx Hepatitis, Hx Human Immunodeficiency Virus (HIV), Hx of Known/Suspected MRSA, Hx Shingles, Hx Tuberculosis, Hx Known/ Suspected VRE, Hx Known/Suspected VRSA, History Other Infectious Disease - Family History Known Family History: Positive: Cardiac Disease, Hypertension, Seizure Disorder - sister, Other - cancer - Social History Alcohol Use: None Alcohol Amount: stopped 4 years ago Hx Substance Use: Yes Substance Use Type: Reports: None Substance Use Comment - Amount & Last Used: pt states he has not used any drugs since 2011. Hx Tobacco Use: Yes Smoking Status (MU): Former Smoker Type: Cigarettes Length of Time of Smoking/Using Tobacco: 20YRS Have You Smoked in the Last Year: No Review of Systems Positive: Abdominal Pain, Nausea. Negative: Vomiting Positive: Other - Auditory hallucinations, feels unsafe, suicidal ideation; NEGATIVE: Substance use All Other Systems Reviewed And Are Negative: Yes Physical Exam - Summary Physical Exam Summary: Appearance: Well-appearing, Well-nourished Skin: Warm Eyes: Normal ENT: Normal Neck: Supple, nontender Respiratory: Clear to auscultation Cardiovascular: Normal S1, S2. No murmurs. Normal distal pulses in tibial and radial bilaterally. Abdomen: Soft, nontender Musculoskeletal: Normal, Strength/ROM Intact Neurological: Normal, A&Ox3 Psychiatric: Alert and appropriate, admits to having suicidal ideation, is hearing voices Triage Information Reviewed: Yes Vital Signs Reviewed: Yes Diagnostics - Laboratory Result Diagrams: 09/20/17 06:20 09/20/17 06:20 Lab Statement: Any lab studies that have been ordered have been reviewed, and results considered in the medical decision making process. Course/Dx - Course Assessment/Plan: patient medically cleared, admitted to psychiatric unit after mental health evaluation - Differential Dx/Clinical Impression Provider Diagnosis: Psychosis Discharge - Discharge Plan Condition: Stable Disposition: ADMITTED TO [facility] The documentation as recorded by the Jamie farah Tiffany accurately reflects the service I personally performed and the decisions made by Adarsh bishop Dong, MD.
[2017-09-20] MEDS ORDERED: Lidocaine 2% VISCOUS* 15 ML UDC PO ONE (07:46)
[2017-09-20] MEDS ORDERED: Acetaminophen TAB* 325 MG PO PRN (10:02)
[2017-09-20] MEDS ORDERED: Cetirizine* 10 MG TAB PO PRN (10:03)
[2017-09-20] MEDS ORDERED: Albuterol HFA INHALER* 8 gm MDI INH PRN (10:04)
[2017-09-20] MEDS ORDERED: Promethazine TAB* 25 MG PO PRN (10:05)
[2017-09-20] MEDS ORDERED: QUEtiapine TAB* 25 MG PO PRN (10:05)
[2017-09-20] MEDS ORDERED: diPHENhydraMINE PO* 25 MG PO PRN (10:07)
[2017-09-20] MEDS: Dicyclomine CAP* 10 MG PO SCH ×3 (13:00→20:00)
--- NOTE | 2017-09-20 13:45 | ED ---
Hong John Julia, scribed for Gerald Collins MD on 09/20/17 at 0704 . Progress - Progress Note Progress Note: This patient is signed out at the end of shift change from Dr. Altamirano awaiting mental health evaluation and disposition at 07:00. Course/Dx - Course Course Of Treatment: Mr. Banegas came in C/O hallucinations on a previous shift and was medically cleared. While here he C/O abdominal pain which is a chronic C/O for him. He was given a GI cocktail with good result. He had a [facility] and they offered him a volountary admission which he accepted. He is admitted in stable condition with a diagnosis of psychosis. - Diagnoses Provider Diagnoses: Psychosis The documentation as recorded by the Hong farah Julia accurately reflects the service I personally performed and the decisions made by me, Gerald Collins MD.
[2017-09-20] MEDS: Al Hydrox/Mg Hydrox/Simet LIQ* 30 ML UDC PO PRN ×2 (15:26→20:02)
[2017-09-20] MEDS: Ziprasidone CAP* 80 MG PO SCH (20:00)
[2017-09-20] MEDS: cloNIDine TAB* 0.1 MG PO SCH (20:01)
[2017-09-20] MEDS: Zolpidem TAB* 5 MG PO SCH (20:01)
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
[2017-09-21] MEDS: DULoxetine DR CAP* 60 MG CAP.DR PO SCH (08:55)
[2017-09-21] MEDS: Tamsulosin CAP* 0.4 MG PO SCH (08:55)
[2017-09-21] MEDS: Topiramate TAB(*) 100 MG PO SCH (08:56)
[2017-09-21] MEDS: Famotidine TAB* 20 MG PO SCH (08:56)
[2017-09-21] MEDS: Omeprazole CAP* 20 MG PO SCH (08:56)
[2017-09-21] MEDS: Ziprasidone * 20 MG CAP (generic Geodon) PO SCH (08:56)
[2017-09-21] MEDS: Vitamin THERAPEUTIC TAB PO SCH (08:56)
[2017-09-21] MEDS: Dicyclomine CAP* 10 MG PO SCH ×2 (08:56→11:38)
[2017-09-21] MEDS: Al Hydrox/Mg Hydrox/Simet LIQ* 30 ML UDC PO PRN ×2 (09:01→21:47)
[2017-09-21] MEDS: Levothyroxine TAB* 50 MCG TAB PO SCH (09:40)
--- NOTE | 2017-09-21 16:46 | PN ---
Subjective - Subjective Service Type: 75271 Hosp care 15 min low complexity Subjective: Patient has been sleeping, audibly snoring each time creative services writer approached him. According to staff, he has otherwise been calm and in behavioral control. He continues to endorse neida COON but feels safe on the unit. He has been medication, meal and group compliant. Objective - Appearance Appearance: Obese Dysmorphic Features: Yes Hygiene: Normal Grooming: Fairly Well Kept - Behavior Psychomotor Activities: Normal Exhibits Abnormal Movement: No - Attitude and Relatedness Attitude and Relatedness: Withdrawn Eye Contact: Fair - Speech Quality: Unpressured Latencies: Short Quantity: Appropriate - Affect Observed Affect: Depressed Affect Consistent with: Dysphoria - Thought Process Patient's Thought Process: Impoverished Thought Content: No Passive Wish, No Suicidal Planning, No Homicidal Ideation, No Paranoid Ideation - Sensorium Experiencing Hallucinations: Yes Type of Hallucinations: Auditory: Yes, Command: Yes - Level of Consciousness Level of Consciousness: Alert Orientation: Yes Intact, Yes Orientated to Time, Yes Orientated to Place, Yes Orientated to Person - Impulse Control Impulse Control: Tenuous - Insight and Judgement Insight and Judgement: Good - Group Participation Particating in Group Activities: No - Medication Management Medication Management Adherence: Yes Assessment - Assessment Merits Inpatient Hospitalization: For Immediate Safety, To Initiate Treatment, Consolidate Improvements, Pending Safe DC Plan Inpatient DSM-IV Dx: PTSD; unspecified anxiety d/o; cluster A traits Clinical Impression: 51yo white male, single, domiciled, lives in [facility] He presented to ED with neida COON. He merits hospitalization for immediate safety and stabilization. Plan - Plan Treatment Plan: Name: SONIA MONDRAGON Birthdate: 1965 [id number] continue acute intensive psychiatric treatment. Obtain collateral from outpatient providers. Continued Medication Management: Continue Outpt Medication Medications: Current Medications Acetaminophen (Tylenol Tab*) 650 mg PO Q4H PRN PRN Reason: PAIN or TEMP > 101 F Last Admin: 09/21/17 11:47 Dose: 650 mg Al Hydrox/Mg Hydrox/Simethicone (Maalox Plus*) 30 ml PO Q4H PRN PRN Reason: INDIGESTION Last Admin: 09/21/17 09:01 Dose: 30 ml Albuterol (Ventolin Hfa Inhaler*) 2 puff INH Q4H PRN PRN Reason: SHORTNESS OF BREATH Cetirizine HCl (Zyrtec*) 10 mg PO DAILY PRN PRN Reason: ALLEGIES Clonidine HCl (Catapres Tab*) 0.3 mg PO BEDTIME [facility] Last Admin: 09/20/17 20:01 Dose: 0.3 mg Diphenhydramine HCl (Benadryl Po*) 25 mg PO Q6H PRN PRN Reason: Allergy Symptoms Duloxetine HCl (Cymbalta Cap*) 60 mg PO DAILY [facility] Last Admin: 09/21/17 08:55 Dose: 60 mg Famotidine (Pepcid Tab*) 40 mg PO DAILY [facility] Last Admin: 09/21/17 08:56 Dose: 40 mg Levothyroxine Sodium (Synthroid Tab*) 50 mcg PO DAILY@0600 [facility] Last Admin: 09/21/17 09:40 Dose: 50 mcg Multivitamins (Theragran Tab*) 1 tab PO DAILY [facility] Last Admin: 09/21/17 08:56 Dose: 1 tab Pto Nf Med* (Dicyclomine 20mg Tab) 1 admin PO ACHS [facility] Omeprazole (Prilosec Cap*) 20 mg PO DAILY@0730 [facility] Last Admin: 09/21/17 08:56 Dose: 20 mg Promethazine HCl (Phenergan Tab*) 25 mg PO Q8H PRN PRN Reason: NAUSEA Last Admin: 09/20/17 13:01 Dose: 25 mg Quetiapine Fumarate (Seroquel Tab*) 25 mg PO Q4H PRN PRN Reason: ANXIETY Tamsulosin HCl (Flomax Cap*) 0.4 mg PO DAILY [facility] Last Admin: 09/21/17 08:55 Dose: 0.4 mg Topiramate (Topamax(*)) 100 mg PO DAILY [facility] Last Admin: 09/21/17 08:56 Dose: 100 mg Ziprasidone (Geodon Cap*) 80 mg PO BEDTIME [facility] Last Admin: 09/20/17 20:00 Dose: 80 mg Ziprasidone (Geodon (Generic) *) 40 mg PO DAILY [facility] Last Admin: 09/21/17 08:56 Dose: 40 mg Zolpidem Tartrate (Ambien Tab*) 5 mg PO BEDTIME [facility] Last Admin: 09/20/17 20:01 Dose: 5 mg - Discharge Plan Discharge Plan: Outpatient Follow Up Outpatient Program: [facility]
[2017-09-21] MEDS: DICYCLOMINE 20 MG PO SCH ×2 (17:04→20:24)
[2017-09-21] MEDS: Ziprasidone CAP* 80 MG PO SCH (20:23)
[2017-09-21] MEDS: cloNIDine TAB* 0.1 MG PO SCH (20:23)
[2017-09-21] MEDS: Zolpidem TAB* 5 MG PO SCH (20:23)
[2017-09-22] MEDS: Omeprazole CAP* 20 MG PO SCH (07:28)
[2017-09-22] MEDS: Levothyroxine TAB* 50 MCG TAB PO SCH (07:28)
[2017-09-22] MEDS: DICYCLOMINE 20 MG PO SCH ×4 (07:32→20:14)
[2017-09-22] MEDS: Famotidine TAB* 20 MG PO SCH (08:29)
[2017-09-22] MEDS: DULoxetine DR CAP* 60 MG CAP.DR PO SCH (08:29)
[2017-09-22] MEDS: Ziprasidone * 20 MG CAP (generic Geodon) PO SCH (08:30)
[2017-09-22] MEDS: Tamsulosin CAP* 0.4 MG PO SCH (08:30)
[2017-09-22] MEDS: Topiramate TAB(*) 100 MG PO SCH (08:30)
[2017-09-22] MEDS: Vitamin THERAPEUTIC TAB PO SCH (08:30)
--- NOTE | 2017-09-22 10:35 | PN ---
Subjective - Subjective Service Type: 59255 Hosp care 15 min low complexity Subjective: Patient is dysphoric, walking about unit and pleasant upon approach. He reports "a flashback" was the primary catalyst for returning to the hospital. He continues to endorse AH. We discuss techniques that usually help him when experiencing symptoms and he identifies listening to music. School Business Administrator informs him of new streaming radio in comfort room and discusses use of prn medications. Patient asks if he is being sent to [facility] and notified that he does not present with need for more than an acute hospitalization at this time. Objective - Appearance Appearance: Obese Dysmorphic Features: Yes Hygiene: Normal Grooming: Fairly Well Kept - Behavior Psychomotor Activities: Normal Exhibits Abnormal Movement: No - Attitude and Relatedness Attitude and Relatedness: Cooperative Eye Contact: Good - Speech Quality: Unpressured Latencies: Normal Quantity: Appropriate - Mood Patient's Decription of Mood: "Okay" - Affect Observed Affect: Depressed Affect Consistent with: Dysphoria - Thought Process Patient's Thought Process: Coherent, Goal Directed Thought Content: Yes Paranoid Ideation, No Passive Wish, No Suicidal Planning, No Homicidal Ideation - Sensorium Experiencing Hallucinations: No, Sensorium is Clear Type of Hallucinations: Auditory: Yes, Command: Yes - Level of Consciousness Level of Consciousness: Alert Orientation: Yes Intact, Yes Orientated to Time, Yes Orientated to Place, Yes Orientated to Person - Impulse Control Impulse Control: Tenuous - Insight and Judgement Insight and Judgement: Good - Group Participation Particating in Group Activities: Yes - Medication Management Medication Management Adherence: Yes Assessment - Assessment Merits Inpatient Hospitalization: For Immediate Safety, For Stabilization, Consolidate Improvements, For Discharge Planning Inpatient DSM-IV Dx: PTSD; unspecified anxiety d/o; cluster A traits Clinical Impression: 51yo white male, single, domiciled, lives in [facility]. He presented to ED with command AH. He merits hospitalization for immediate safety and stabilization. Plan - Plan Treatment Plan: Name: SONIA MONDRAGON Birthdate: 1965 [id number] continue acute intensive psychiatric treatment. Obtain collateral from outpatient providers. decrease observation to q30min. encourage use of prn medication for anxiety and AH. Continued Medication Management: Continue Outpt Medication Medications: Current Medications Acetaminophen (Tylenol Tab*) 650 mg PO Q4H PRN PRN Reason: PAIN or TEMP > 101 F Last Admin: 09/21/17 11:47 Dose: 650 mg Al Hydrox/Mg Hydrox/Simethicone (Maalox Plus*) 30 ml PO Q4H PRN PRN Reason: INDIGESTION Last Admin: 09/21/17 21:47 Dose: 30 ml Albuterol (Ventolin Hfa Inhaler*) 2 puff INH Q4H PRN PRN Reason: SHORTNESS OF BREATH Cetirizine HCl (Zyrtec*) 10 mg PO DAILY PRN PRN Reason: ALLEGIES Clonidine HCl (Catapres Tab*) 0.3 mg PO BEDTIME [facility] Last Admin: 09/21/17 20:23 Dose: 0.3 mg Diphenhydramine HCl (Benadryl Po*) 25 mg PO Q6H PRN PRN Reason: Allergy Symptoms Duloxetine HCl (Cymbalta Cap*) 60 mg PO DAILY [facility] Last Admin: 09/22/17 08:29 Dose: 60 mg Famotidine (Pepcid Tab*) 40 mg PO DAILY [facility] Last Admin: 09/22/17 08:29 Dose: 40 mg Levothyroxine Sodium (Synthroid Tab*) 50 mcg PO DAILY@0600 [facility] Last Admin: 09/22/17 07:28 Dose: 50 mcg Multivitamins (Theragran Tab*) 1 tab PO DAILY [facility] Last Admin: 09/22/17 08:30 Dose: 1 tab Pto Nf Med* (Dicyclomine 20mg Tab) 1 admin PO ACHS [facility] Last Admin: 09/22/17 07:32 Dose: 1 admin Omeprazole (Prilosec Cap*) 20 mg PO DAILY@0730 [facility] Last Admin: 09/22/17 07:28 Dose: 20 mg Promethazine HCl (Phenergan Tab*) 25 mg PO Q8H PRN PRN Reason: NAUSEA Last Admin: 09/20/17 13:01 Dose: 25 mg Quetiapine Fumarate (Seroquel Tab*) 25 mg PO Q4H PRN PRN Reason: ANXIETY Tamsulosin HCl (Flomax Cap*) 0.4 mg PO DAILY [facility] Last Admin: 09/22/17 08:30 Dose: 0.4 mg Topiramate (Topamax(*)) 100 mg PO DAILY [facility] Last Admin: 09/22/17 08:30 Dose: 100 mg Ziprasidone (Geodon Cap*) 80 mg PO BEDTIME [facility] Last Admin: 09/21/17 20:23 Dose: 80 mg Ziprasidone (Geodon (Generic) *) 40 mg PO DAILY [facility] Last Admin: 09/22/17 08:30 Dose: 40 mg Zolpidem Tartrate (Ambien Tab*) 5 mg PO BEDTIME [facility] Last Admin: 09/21/17 20:23 Dose: 5 mg - Discharge Plan Discharge Plan: Outpatient Follow Up Outpatient Program: [facility]
--- NOTE | 2017-09-22 13:17 | PN ---
MHU: Group Therapy Note - Service Type Service Type: [id number] Group Psychotherapy - Cognitive Behavioral Group Therapy ( CBT):Patient attended CBT programming this morning and presented with flat affect that did not vary with discussion. Although responsive to direct prompts to respond to questions, patient did not engage in spontaneous conversation.
[2017-09-22] MEDS: Al Hydrox/Mg Hydrox/Simet LIQ* 30 ML UDC PO PRN (18:32)
[2017-09-22] MEDS: cloNIDine TAB* 0.1 MG PO SCH (20:15)
[2017-09-22] MEDS: Ziprasidone CAP* 80 MG PO SCH (20:15)
[2017-09-22] MEDS: Zolpidem TAB* 5 MG PO SCH (20:15)
[2017-09-23] MEDS: Vitamin THERAPEUTIC TAB PO SCH (08:17)
[2017-09-23] MEDS: Tamsulosin CAP* 0.4 MG PO SCH (08:17)
[2017-09-23] MEDS: Famotidine TAB* 20 MG PO SCH (08:17)
[2017-09-23] MEDS: Omeprazole CAP* 20 MG PO SCH (08:17)
[2017-09-23] MEDS: DULoxetine DR CAP* 60 MG CAP.DR PO SCH (08:17)
[2017-09-23] MEDS: Ziprasidone * 20 MG CAP (generic Geodon) PO SCH (08:17)
[2017-09-23] MEDS: Topiramate TAB(*) 100 MG PO SCH (08:18)
[2017-09-23] MEDS: Levothyroxine TAB* 50 MCG TAB PO SCH (08:18)
[2017-09-23] MEDS: DICYCLOMINE 20 MG PO SCH ×4 (08:18→20:14)
[2017-09-23] MEDS: Al Hydrox/Mg Hydrox/Simet LIQ* 30 ML UDC PO PRN ×2 (09:56→16:12)
--- NOTE | 2017-09-23 17:11 | PN ---
Subjective - Subjective Service Type: 66562 Hosp care 15 min low complexity Subjective: Patient is euthymic with bright affect upon approach. He reports cessation of flashbacks and AH. He states he is feeling safe on the unit and slept well. He states he will likely be ready to go home tomorrow. According to staff, he is group, meal and medication compliant. Objective - Appearance Appearance: Obese Dysmorphic Features: No Hygiene: Normal Grooming: Fairly Well Kept - Behavior Psychomotor Activities: Normal Exhibits Abnormal Movement: No - Attitude and Relatedness Attitude and Relatedness: Cooperative Eye Contact: Good - Speech Quality: Unpressured Latencies: Normal Quantity: Appropriate - Mood Patient's Decription of Mood: "Okay" - Affect Observed Affect: Good Affect Consistent with: Euthymia - Thought Process Patient's Thought Process: Coherent, Goal Directed Thought Content: No Passive Wish, No Suicidal Planning, No Homicidal Ideation, No Paranoid Ideation - Sensorium Experiencing Hallucinations: No, Sensorium is Clear Type of Hallucinations: Visual: No, Auditory: No, Command: No - Level of Consciousness Level of Consciousness: Alert Orientation: Yes Intact, Yes Orientated to Time, Yes Orientated to Place, Yes Orientated to Person - Impulse Control Impulse Control: Intact - Insight and Judgement Insight and Judgement: Good - Group Participation Particating in Group Activities: Yes - Medication Management Medication Management Adherence: Yes Assessment - Assessment Merits Inpatient Hospitalization: For Immediate Safety, For Stabilization, For Discharge Planning Inpatient DSM-IV Dx: PTSD; unspecified anxiety d/o; cluster A traits Clinical Impression: 51yo white male, single, domiciled, lives in [facility]. He presented to ED with command SHAGGY. He merits hospitalization for immediate safety and stabilization. Plan - Plan Treatment Plan: Name: SONIA MONDRAGON Birthdate: 1965 [id number] continue acute intensive psychiatric treatment. allow staff pass and continue observation q30min. encourage use of prn medication for anxiety and AH. tentative discharge on 09/24/17. Continued Medication Management: Continue Outpt Medication Medications: Current Medications Acetaminophen (Tylenol Tab*) 650 mg PO Q4H PRN PRN Reason: PAIN or TEMP > 101 F Last Admin: 09/21/17 11:47 Dose: 650 mg Al Hydrox/Mg Hydrox/Simethicone (Maalox Plus*) 30 ml PO Q4H PRN PRN Reason: INDIGESTION Last Admin: 09/23/17 16:12 Dose: 30 ml Albuterol (Ventolin Hfa Inhaler*) 2 puff INH Q4H PRN PRN Reason: SHORTNESS OF BREATH Cetirizine HCl (Zyrtec*) 10 mg PO DAILY PRN PRN Reason: ALLEGIES Clonidine HCl (Catapres Tab*) 0.3 mg PO BEDTIME [facility] Last Admin: 09/22/17 20:15 Dose: 0.3 mg Diphenhydramine HCl (Benadryl Po*) 25 mg PO Q6H PRN PRN Reason: Allergy Symptoms Duloxetine HCl (Cymbalta Cap*) 60 mg PO DAILY [facility] Last Admin: 09/23/17 08:17 Dose: 60 mg Famotidine (Pepcid Tab*) 40 mg PO DAILY [facility] Last Admin: 09/23/17 08:17 Dose: 40 mg Levothyroxine Sodium (Synthroid Tab*) 50 mcg PO DAILY@0600 [facility] Last Admin: 09/23/17 08:18 Dose: 50 mcg Multivitamins (Theragran Tab*) 1 tab PO DAILY [facility] Last Admin: 09/23/17 08:17 Dose: 1 tab Pto Nf Med* (Dicyclomine 20mg Tab) 1 admin PO ACHS [facility] Last Admin: 09/23/17 16:12 Dose: 1 admin Omeprazole (Prilosec Cap*) 20 mg PO DAILY@0730 [facility] Last Admin: 09/23/17 08:17 Dose: 20 mg Promethazine HCl (Phenergan Tab*) 25 mg PO Q8H PRN PRN Reason: NAUSEA Last Admin: 09/20/17 13:01 Dose: 25 mg Quetiapine Fumarate (Seroquel Tab*) 25 mg PO Q4H PRN PRN Reason: ANXIETY Tamsulosin HCl (Flomax Cap*) 0.4 mg PO DAILY [facility] Last Admin: 09/23/17 08:17 Dose: 0.4 mg Topiramate (Topamax(*)) 100 mg PO DAILY [facility] Last Admin: 09/23/17 08:18 Dose: 100 mg Ziprasidone (Geodon Cap*) 80 mg PO BEDTIME [facility] Last Admin: 09/22/17 20:15 Dose: 80 mg Ziprasidone (Geodon (Generic) *) 40 mg PO DAILY [facility] Last Admin: 09/23/17 08:17 Dose: 40 mg Zolpidem Tartrate (Ambien Tab*) 5 mg PO BEDTIME [facility] Last Admin: 09/22/17 20:15 Dose: 5 mg - Discharge Plan Discharge Plan: Outpatient Follow Up Outpatient Program: [facility]
[2017-09-23] MEDS: cloNIDine TAB* 0.1 MG PO SCH (20:13)
[2017-09-23] MEDS: Zolpidem TAB* 5 MG PO SCH (20:13)
[2017-09-23] MEDS: Ziprasidone CAP* 80 MG PO SCH (20:13)
[2017-09-24] MEDS: DICYCLOMINE 20 MG PO SCH ×2 (07:55→11:46)
[2017-09-24] MEDS: Omeprazole CAP* 20 MG PO SCH (07:55)
[2017-09-24 09:01] VITALS: BP 115/80
[2017-09-24] MEDS: Famotidine TAB* 20 MG PO SCH (09:02)
[2017-09-24] MEDS: Vitamin THERAPEUTIC TAB PO SCH (09:02)
[2017-09-24] MEDS: Topiramate TAB(*) 100 MG PO SCH (09:02)
[2017-09-24] MEDS: DULoxetine DR CAP* 60 MG CAP.DR PO SCH (09:02)
[2017-09-24] MEDS: Ziprasidone * 20 MG CAP (generic Geodon) PO SCH (09:03)
[2017-09-24] MEDS: Tamsulosin CAP* 0.4 MG PO SCH (09:03)
[2017-09-24] MEDS: Levothyroxine TAB* 50 MCG TAB PO SCH (11:00)
--- NOTE | 2017-09-24 11:46 | PN ---
MHU: Group Therapy Note - Service Type Service Type: [id number] Group Psychotherapy - Cognitive Behavioral Group Therapy ( CBT):Patient was attentive and participatory in CBT programming this morning, and remained in good behavioral control. Patient expressed positive insights regarding relevant treatment interventions and goals.
[2017-09-24] MEDS: Al Hydrox/Mg Hydrox/Simet LIQ* 30 ML UDC PO PRN (13:55)
== END 2017-09-24 16:17 | disposition home or self-care (01) | DRG 882 ==
LOC: ED 04:54 → BSU 09:09
PROVIDERS: ADMIT Psychiatry & Neurology Psychiatry; ATTEND Psychiatry & Neurology Psychiatry
DX: F43.10 Post-traumatic stress disorder, unspecified (principal); G40.909 Epilepsy, unspecified, not intractable, without status epilepticus; E03.9 Hypothyroidism, unspecified; F41.9 Anxiety disorder, unspecified; K21.9 Gastro-esophageal reflux disease without esophagitis; J45.909 Unspecified asthma, uncomplicated
CPT/HCPCS: 36415; 80053; 80307; 80320; 80329; 81003; 81015; 84443; 85025; 90853; 99222; 99231; 99238; 99285; A9270-GY; G0480

== ENCOUNTER 2017-10-21 05:52 | Emergency (ER) | payer MEDICARE, MEDICAID ==
[2017-10-21] MEDS ORDERED: Ondansetron INJ* 2 MG/ML VIAL IV ONE ×2 (06:06→07:43)
[2017-10-21] MEDS ORDERED: NS 0.9% 1000 ML* 1,000 ML IV ONE (06:06)
[2017-10-21] MEDS ORDERED: Pantoprazole IV* 40 MG IV ONE (06:06)
[2017-10-21] MEDS ORDERED: Morphine INJ* 4 MG/ML 1 ML CARPUJECT IV ONE (06:06)
[2017-10-21] MEDS ORDERED: Morphine INJ* 4 MG/ML 1 ML SYRINGE (NEW SYRINGE VERSION) ONE (06:24)
[2017-10-21 06:49] LABS: ABS Basophils 0.1 10^3/ul (0-0.2); ABS Eosinophils 0.1 10^3/ul (0-0.6); ABS Lymphocytes 1.1 10^3/ul (1.0-4.8); ABS Monocytes 0.7 10^3/ul (0-0.8); ABS Neutrophils 5.4 10^3/ul (1.5-7.7); ABS Nucleated RBC 0 10^3/ul; Hematocrit 41 % (42-52); Hemoglobin 14.7 g/dl (14.0-18.0); Mean Corpuscular HGB Conc 36 g/dl (31-36); Mean Corpuscular Hemoglobin 33 pg (27-31); Mean Corpuscular Volume 92 fL (80-94); Mean Platelet Volume 8 um3 (7.4-10.4); Nucleated Red Blood Cells % 0.1; Platelet Count 257 10^3/ul (150-450); Red Blood Count 4.51 10^6/ul (4.0-5.4); Red Cell Distribution Width 13 % (10.5-15); White Blood Count 7.4 10^3/ul (3.5-10.8)
[2017-10-21 07:03] LABS: INR 0.89 (0.77-1.02)
--- NOTE | 2017-10-21 07:05 | ED ---
Gerson John Abhishek, scribed for Tomi Coughlin MD on 10/21/17 at 0619 . Abdominal Pain/Male - HPI Summary HPI Summary: The pt is a 51 M presenting to the [facility] with a chief complaint of N/V/D since 2 days ago (10/19/17). The pt reports abd pain and describes the pain as a burning feeling. The onset of the vomiting was today at 1500. Pertinent PMHx includes appendicitis, and cholecystitis.Last bowel movement was reported to be at 0400 today (10/21/17). The pain is reported to be 0/10 in severity initially. Symptoms aggravated by nothing. Symptoms alleviated by nothing. - History of Current Complaint Chief Complaint: EDNauseaVomitDiarrh Stated Complaint: VOMITING Time Seen by Provider: 10/21/17 05:54 Hx Obtained From: Patient Onset/Duration: Gradual Onset, Lasting Days - 2 days Timing: Constant Severity Initially: Mild Severity Currently: None Pain Intensity: 0 Pain Scale Used: 0-10 Numeric Character: Burning Aggravating Factor(s): Nothing Alleviating Factor(s): Nothing Associated Signs And Symptoms: Positive: Nausea, Vomiting, Diarrhea - Allergies/Home Medications Allergies/Adverse Reactions: Allergies Allergy/AdvReac Type Severity Reaction Status Date / Time No Known Allergies Allergy Verified 09/20/17 14:06 PMH/Surg Hx/FS Hx/Imm Hx Endocrine/Hematology History: Reports: Hx Thyroid Disease, Hx Anemia Denies: Hx Anticoagulant Therapy, Hx Diabetes, Hx Systemic Lupus Erythematosus Cardiovascular History: Reports: Hx Hypercholesterolemia, Other Cardiovascular Problems/Disorders - HYPERLIPIDEMIA Denies: Hx Congestive Heart Failure, Hx Hypertension, Hx Pacemaker/ICD Respiratory History: Reports: Hx Chronic Bronchitis, Hx Chronic Obstructive Pulmonary Disease (COPD) Denies: Hx Asthma Comment Only: Other Respiratory Problems/Disorders - Sarcoidosis GI History: Reports: Hx Gastroesophageal Reflux Disease, Hx Irritable Bowel, Hx Obstructive Bowel - Small bowel, Other GI Disorders - CYST REMOVED FROM BLADDER , LATE Denies: Hx Ulcer History: Reports: Hx Benign Prostatic Hyperplasia, Hx Kidney Stones, Hx Renal Disease - LEFT KIDNEY DECREASE IN FUNCTION, Other Problems/Disorders - HX OF CYST IN THE BLADDER Denies: Hx Dialysis Musculoskeletal History: Reports: Other Musculoskeletal History - Sarcoidosis Denies: Hx Rheumatoid Arthritis Sensory History: Reports: Hx Contacts or Glasses Denies: Hx Hearing Aid, Hx Hearing Problem Opthamlomology History: Reports: Hx Contacts or Glasses Neurological History: Reports: Hx Headaches, Hx Seizures, Other Neuro Impairments/Disorders - "light concussion" Psychiatric History: Reports: Hx Anxiety, Hx Depression, Hx Post Traumatic Stress Disorder, Hx Inpatient Treatment, Hx Community Mental Health Tx, Hx Schizophrenia, Hx Suicide Attempt, Hx of Violent Episodes Against Others, Hx Substance Abuse, Other Psychiatric Issues/Disorders Denies: Hx Eating Disorder, Hx Panic Disorder - Cancer History Hx Chemotherapy: No - Surgical History Surgery Procedure, Year, and Place: 2009 APPENDECTOMY, [facility] CYST REMOVED FROM BLADDER, [facility] CHOLECYSTECTOMY-12/2012 Hx Anesthesia Reactions: No - Immunization History Date of Tetanus Vaccine: Unknown Date of Influenza Vaccine: Fall 2013 Infectious Disease History: No Infectious Disease History: Denies: Hx Clostridium Difficile, Hx Hepatitis, Hx Human Immunodeficiency Virus (HIV), Hx of Known/Suspected MRSA, Hx Shingles, Hx Tuberculosis, Hx Known/ Suspected VRE, Hx Known/Suspected VRSA, History Other Infectious Disease, Traveled Outside the [place] in Last 30 Days - Family History Known Family History: Positive: Cardiac Disease, Hypertension, Seizure Disorder - sister, Other - cancer - Social History Alcohol Use: None Alcohol Amount: stopped 4 years ago Hx Substance Use: Yes Substance Use Type: Reports: None Substance Use Comment - Amount & Last Used: pt states he has not used any drugs since 2011. Hx Tobacco Use: Yes Smoking Status (MU): Former Smoker Type: Cigarettes Length of Time of Smoking/Using Tobacco: 20YRS Have You Smoked in the Last Year: No Review of Systems Constitutional: Negative Eyes: Negative ENT: Negative Cardiovascular: Negative Respiratory: Negative Positive: Abdominal Pain - "burning", Vomiting, Diarrhea, Nausea Genitourinary: Negative Musculoskeletal: Negative Skin: Negative Neurological: Negative Psychological: Normal All Other Systems Reviewed And Are Negative: Yes Physical Exam - Summary Physical Exam Summary: VITAL SIGNS: Reviewed. GENERAL: ~Patient is a well-developed and nourished (MALE) who is lying comfortable in the stretcher. Patient is not in any acute respiratory distress. HEAD AND FACE: No signs of trauma. No ecchymosis, hematomas or skull depressions. No sinus tenderness. EYES: PERRLA, EOMI x 2, No injected conjunctiva, no nystagmus. EARS: Hearing grossly intact. Ear canals and tympanic membranes are within normal limits. MOUTH: Oropharynx within normal limits. NECK: Supple, trachea is midline, no adenopathy, no JVD, no carotid bruit, no c- spine tenderness, neck with full ROM. CHEST: Symmetric, no tenderness at palpation LUNGS: Clear to auscultation bilaterally. No wheezing or crackles. CVS: Regular rate and rhythm, S1 and S2 present, no murmurs or gallops appreciated. ABDOMEN: Distended abd,hyperactive ben sounds EXTREMITIES: FROM in all major joints, no edema, no cyanosis or clubbing. NEURO: Alert and oriented x 3. No acute neurological deficits. Speech is normal and follows commands. SKIN: Dry and warm Triage Information Reviewed: Yes Vital Signs On Initial Exam: Initial Vitals Temp Pulse Resp BP Pulse Ox 97.7 F 93 18 146/88 96 10/21/17 05:55 10/21/17 05:55 10/21/17 05:55 10/21/17 05:55 10/21/17 05:55 Vital Signs Reviewed: Yes Diagnostics - Vital Signs Vital Signs Temp Pulse Resp BP Pulse Ox 10/21/17 05:58 92 94 10/21/17 05:57 90 93 10/21/17 05:55 97.7 F 93 18 146/88 96 - Laboratory Result Diagrams: 10/21/17 06:14 Lab Statement: Any lab studies that have been ordered have been reviewed, and results considered in the medical decision making process. Abdominal Pain Fem Course/Dx - Course Course Of Treatment: The pt is a 51 M that is presenting to the [facility] with a chief complaint of N/V/D. Pt also reports of abd pain. The abd pain is described as a "burning" sensation. Pertinent PMHx includes appendicitis and cholecystitis. The pt will be signed out to Dr. Dunham, pending disposition and awaiting CT A/P. The dx will be vomiting and abd pain. - Diagnoses Provider Diagnoses: Abdominal pain, Vomiting Discharge - Discharge Plan Condition: Stable Disposition: OTHER Discharge Disposition Comment: The pt will be signed out to Dr. Dunham awaiting CT A/P. Referrals: Tran Clayton MD [Primary Care Provider] - The documentation as recorded by the Gerson farah Abhishek accurately reflects the service I personally performed and the decisions made by , Tomi Coughlin MD.
[2017-10-21 07:56] LABS: Urine Appearance Clear; Urine Blood Negative (Negative); Urine Color Yellow; Urine Ketones Negative (Negative); Urine Protein Negative (Negative); Urine Specific Gravity 1.015 (1.010-1.030); Urine Urobilinogen Negative (Negative)
[2017-10-21 08:00] LABS: EGFR Non-African American 59.3 (>60)
[2017-10-21] MEDS ORDERED: Morphine INJ* 4 MG/ML 1 ML SYRINGE (NEW SYRINGE VERSION) IV ONE (08:15)
[2017-10-21] MEDS ORDERED: Iodixanol* (CONTRAST) 320 MG/ML 100 ML SDV IV ONE (08:29)
--- NOTE | 2017-10-21 09:08 | RAD ---
CLINICAL HISTORY: Vomiting COMPARISON: July 30, 2017 TECHNIQUE: Multiple contiguous axial CT scans were obtained of the abdomen and pelvis after the administration of intravenous contrast. Coronal and sagittal multiplanar reformations are submitted for review. Oral contrast was not administered. Delayed images were obtained through the abdomen and pelvis. FINDINGS: LUNG BASES: The lung bases are clear. LIVER: The liver is diffusely low in attenuation compared to the spleen. There are no focal hepatic parenchymal masses. Liver measures up to 20 cm in long axis. BILE DUCTS: There is no intrahepatic or extrahepatic biliary dilatation. GALLBLADDER: The gallbladder is not visualized. Surgical clips are noted in the gallbladder fossa. PANCREAS: The pancreas is normal, without mass or ductal dilatation. SPLEEN: Normal in size and appearance. UPPER GI TRACT: The upper GI tract is unremarkable. SMALL BOWEL AND MESENTERY: The small bowel is normal in contour, course, and caliber. There is no obstruction or dilatation. COLON: The colon is normal in contour, course, caliber. There is no pericolonic inflammatory change. ADRENALS: Normal bilaterally. KIDNEYS: The kidneys are normal in shape, size, contour, and axis. There is no hydronephrosis or nephrolithiasis. BLADDER: Again noted is circumferential bladder wall thickening similar to the previous examination. PELVIC ORGANS: The prostate gland is normal. The seminal vesicles are symmetric. There is fluid noted along with processes vaginalis on the left. AORTA: The aorta is normal. IVC: Unremarkable LYMPH NODES: There is no lymphadenopathy by size criteria. ABDOMINAL WALL: There is no evidence for abdominal wall hernia. BONES AND SOFT TISSUES: There are mild diffuse degenerative changes. OTHER: None IMPRESSION: 1. HEPATOMEGALY WITH FATTY INFILTRATION OF THE LIVER. 2. STATUS POST CHOLECYSTECTOMY. 3. AGAIN NOTED IS BLADDER WALL THICKENING SIMILAR TO THE JULY 30, 2017 EXAMINATION.
[2017-10-21] MEDS ORDERED: Ketorolac INJ* 30 MG/ML 1 ML VIAL IV PUSH ONE (09:15)
[2017-10-21 10:49] VITALS: BP 142/78
--- NOTE | 2017-10-22 08:23 | ED ---
Aubrey John Angela, scribed for Antolin Dunham MD on 10/21/17 at 0713 . Progress - Progress Note Progress Note: This pt was signed out by Dr. Coughlni, pending disposition, awaiting CT abdomen/ pelvis. Pt is a 51 y/o male presenting to [facility] c/o nausea, vomiting, and abd pain. He describes his abd pain as burning. On re-evaluation, pt reports he has nausea and his burning abd pain is coming back. Denies passing any gas. PSHx: cholecystectomy (approximately 5 years ago). Physical Exam: VITAL SIGNS: Reviewed. GENERAL: Patient is a well-developed and nourished male who is lying comfortable in the stretcher. Patient is not in any acute respiratory distress. HEAD AND FACE: Normocephalic and atraumatic. EYES: PERRLA, EOMI x 2, No injected conjunctiva. EARS: Hearing grossly intact. Ear canals and tympanic membranes are WNL. MOUTH: Oropharynx within normal limits. NECK: Supple, trachea is midline, no adenopathy, no JVD. CHEST: Symmetric, no tenderness at palpation LUNGS: Clear to auscultation bilaterally. No wheezing or crackles. CVS: RRR, S1 and S2 present, no murmurs or gallops appreciated. ABDOMEN: Soft, non-tender. Abdomen is distended. Decreased bowel sounds. No rebound no guarding, and no masses palpated. No abdominal bruit or pulsations. EXTREMITIES: FROM in all major joints, no edema, no cyanosis or clubbing. NEURO: Alert and oriented x 3. No acute neurological deficits. Speech is normal. SKIN: Dry and warm CT abdomen/pelvis, as read by radiologist: IMPRESSION: 1. Hepatomegaly with fatty infiltration of the liver. 2. Status post cholecystectomy. 3. Again noted is bladder wall thickening similar to the July 30, [address] Dunham has reviewed this radiology report. Pt was signed out by Dr. Coughlin to follow up on the CT abdomen/pelvis. If negative, he reports the pt can be discharged to home. Test results without any significant abnormalities except CRP of creatinine of 1.27, CRP of 9.97. CT abdomen/pelvis shows 1. Hepatomegaly with fatty infiltration of the liver. 2. Status post cholecystectomy. 3. Again noted is bladder wall thickening similar to the July 30, 2017 examination. In the ED course the pt was given IV fluids, Toradol, morphine, and Zofran. Pt reports feeling better after these medications, therefore pt will be discharged home with follow up from PCP. Pt will be discharged to home, in stable condition, with a diagnosis of bladder wall thickening and lower abdominal pain. Condition: Stable Disposition: Home Re-Evaluation - Re-Evaluation First Eval Re-Evaluation Time: 07:41 Change: Unchanged Comment: Pt reports he has nausea and his burning abd pain is coming back. Denies passing any gas. Course/Dx - Diagnoses Provider Diagnoses: Bladder wall thickening, Lower abdominal pain The documentation as recorded by the Aubrey farah Angela accurately reflects the service I personally performed and the decisions made by me, Antolin Dunham MD.
== END 2017-10-21 10:47 ==
LOC: ED 05:52
DX: R10.30 Lower abdominal pain, unspecified (principal); R11.2 Nausea with vomiting, unspecified; R19.7 Diarrhea, unspecified; N32.9 Bladder disorder, unspecified; K76.0 Fatty (change of) liver, not elsewhere classified; Z90.49 Acquired absence of other specified parts of digestive tract; Z87.891 Personal history of nicotine dependence
CPT/HCPCS: 36415; 74177; 80053; 81003; 82150; 83605; 83690; 83735; 85025; 85610; 85730; 86140; 96361; 96365; 96366; 96367; 96375; 96376; 99283; J1885; J2270; J2405; Q9967

== ENCOUNTER 2017-11-15 12:38 | Emergency (ER) | payer MEDICARE, MEDICAID ==
[2017-11-15] MEDS ORDERED: Ketorolac INJ* 30 MG/ML 1 ML VIAL IV ONE (13:04)
[2017-11-15] MEDS ORDERED: Ondansetron INJ* 2 MG/ML VIAL IV ONE (13:04)
[2017-11-15] MEDS ORDERED: NS 0.9% 1000 ML* 2,000 ML IV ONE (13:04)
[2017-11-15] MEDS ORDERED: Morphine INJ* 4 MG/ML 1 ML SYRINGE (NEW SYRINGE VERSION) IV ONE ×2 (13:04→15:03)
[2017-11-15 13:35] LABS: ABS Basophils 0.1 10^3/ul (0-0.2); ABS Eosinophils 0.1 10^3/ul (0-0.6); ABS Monocytes 0.6 10^3/ul (0-0.8); ABS Neutrophils 5.1 10^3/ul (1.5-7.7); ABS Nucleated RBC 0 10^3/ul; Eosinophil % 1.5 % (0-6); Hematocrit 45 % (42-52); Hemoglobin 15.7 g/dl (14.0-18.0); Lymphocyte % 14.5 % (25-47); Mean Corpuscular HGB Conc 35 g/dl (31-36); Mean Corpuscular Hemoglobin 32 pg (27-31); Mean Corpuscular Volume 92 fL (80-94); Mean Platelet Volume 7.6 um3 (7.4-10.4); Nucleated Red Blood Cells % 0.1; Platelet Count 260 10^3/ul (150-450); Red Blood Count 4.91 10^6/ul (4.0-5.4); Red Cell Distribution Width 13 % (10.5-15); White Blood Count 6.8 10^3/ul (3.5-10.8)
[2017-11-15 13:42] LABS: INR 0.86 (0.77-1.02)
[2017-11-15 14:16] LABS: Urine Appearance Clear; Urine Blood Negative (Negative); Urine Color Yellow; Urine Ketones Negative (Negative); Urine Protein Negative (Negative); Urine Specific Gravity 1.019 (1.010-1.030); Urine Urobilinogen Negative (Negative)
[2017-11-15] MEDS ORDERED: Sulfamethox/Trimethoprim DS 800/160* TAB PO ONE (15:02)
[2017-11-15] MEDS ORDERED: Al Hydrox/Mg Hydrox/Simet LIQ* 30 ML UDC PO ONE (15:03)
[2017-11-15] MEDS ORDERED: Lidocaine 2% VISCOUS* 15 ML UDC PO ONE (15:03)
--- NOTE | 2017-11-15 15:28 | RAD ---
HISTORY: Lower and upper abdominal pain COMPARISONS: October 07, 2016 VIEWS: Frontal views of the abdomen. FINDINGS: BOWEL: There is a nonspecific bowel gas pattern, with nondilated small bowel gas noted. There is large amount of stool within the proximal colon. CALCULI: There are no abnormal calculi. BONES AND SOFT TISSUES: There are no osseous abnormalities. OTHER FINDINGS: The lung bases are clear. There is no subphrenic gas. Surgical clips are noted in the right upper quadrant and left hemipelvis. IMPRESSION: NONSPECIFIC BOWEL GAS PATTERN.
--- NOTE | 2017-11-15 15:59 | ED ---
Aubrey John Stephanie, scribed for Pierre Benito MD on 11/15/17 at 1306 . Abdominal Pain/Male - HPI Summary HPI Summary: The pt is a 52 y/o M presenting to the ED with c/o abd pain that began on . Symptoms include nausea, vomiting and constipation. The pt denies fever and chills. - History of Current Complaint Chief Complaint: EDAbdPain Stated Complaint: ABD PAIN Time Seen by Provider: 11/15/17 12:55 Hx Obtained From: Patient Onset/Duration: Gradual Onset, Lasting Days - 2, Still Present Timing: Constant Severity Currently: Moderate Pain Intensity: 9 Pain Scale Used: 0-10 Numeric Location: Epigastric, Suprapubic Radiates: No Aggravating Factor(s): Nothing Alleviating Factor(s): Nothing Associated Signs And Symptoms: Positive: Constipation, Nausea, Vomiting. Negative: Fever - Allergies/Home Medications Allergies/Adverse Reactions: Allergies Allergy/AdvReac Type Severity Reaction Status Date / Time No Known Allergies Allergy Verified 09/20/17 14:06 Home Medications: Home Medications Acetaminophen [Acetaminophen Extra Strength] 1,000 mg PO Q8HR PRN 11/15/17 [ History Confirmed 11/15/17] Mag Hydrox/Aluminum Hyd/Simeth [Antacid M Liquid] 10 ml PO BID PRN 11/15/17 [ History Confirmed 11/15/17] Ranitidine TAB (NF) [Zantac TAB (NF)] 150 mg PO DAILY 11/15/17 [History Confirmed 11/15/17] Ziprasidone * [Geodon (generic) *] 60 mg PO BID 11/15/17 [History Confirmed 09/03] PMH/Surg Hx/FS Hx/Imm Hx Endocrine/Hematology History: Reports: Hx Thyroid Disease, Hx Anemia Denies: Hx Anticoagulant Therapy, Hx Diabetes, Hx Systemic Lupus Erythematosus Cardiovascular History: Reports: Hx Hypercholesterolemia, Other Cardiovascular Problems/Disorders - HYPERLIPIDEMIA Denies: Hx Congestive Heart Failure, Hx Hypertension, Hx Pacemaker/ICD Respiratory History: Reports: Hx Chronic Bronchitis, Hx Chronic Obstructive Pulmonary Disease (COPD) Denies: Hx Asthma Comment Only: Other Respiratory Problems/Disorders - Sarcoidosis GI History: Reports: Hx Gastroesophageal Reflux Disease, Hx Irritable Bowel, Hx Obstructive Bowel - Small bowel, Other GI Disorders - CYST REMOVED FROM BLADDER , LATE Denies: Hx Ulcer History: Reports: Hx Benign Prostatic Hyperplasia, Hx Kidney Stones, Hx Renal Disease - LEFT KIDNEY DECREASE IN FUNCTION, Other Problems/Disorders - HX OF CYST IN THE BLADDER Denies: Hx Dialysis Musculoskeletal History: Reports: Other Musculoskeletal History - Sarcoidosis Denies: Hx Rheumatoid Arthritis Sensory History: Reports: Hx Contacts or Glasses Denies: Hx Hearing Aid, Hx Hearing Problem Opthamlomology History: Reports: Hx Contacts or Glasses Neurological History: Reports: Hx Headaches, Hx Seizures, Other Neuro Impairments/Disorders - "light concussion" Psychiatric History: Reports: Hx Anxiety, Hx Depression, Hx Post Traumatic Stress Disorder, Hx Inpatient Treatment, Hx Community Mental Health Tx, Hx Schizophrenia, Hx Suicide Attempt, Hx of Violent Episodes Against Others, Hx Substance Abuse, Other Psychiatric Issues/Disorders Denies: Hx Eating Disorder, Hx Panic Disorder - Cancer History Hx Chemotherapy: No - Surgical History Surgery Procedure, Year, and Place: 2008 APPENDECTOMY, [facility] [place] CYST REMOVED FROM BLADDER, [facility] [place] CHOLECYSTECTOMY-12/2012 Hx Anesthesia Reactions: No - Immunization History Date of Tetanus Vaccine: Unknown Date of Influenza Vaccine: Fall 2013 Infectious Disease History: No Infectious Disease History: Denies: Hx Clostridium Difficile, Hx Hepatitis, Hx Human Immunodeficiency Virus (HIV), Hx of Known/Suspected MRSA, Hx Shingles, Hx Tuberculosis, Hx Known/ Suspected VRE, Hx Known/Suspected VRSA, History Other Infectious Disease, Traveled Outside the [place] in Last 30 Days - Family History Known Family History: Positive: Cardiac Disease, Hypertension, Seizure Disorder - sister, Other - cancer - Social History Occupation: Disabled Lives: Alone Alcohol Use: None Alcohol Amount: stopped 4 years ago Hx Substance Use: Yes Substance Use Type: Reports: None Substance Use Comment - Amount & Last Used: pt states he has not used any drugs since 2011. Hx Tobacco Use: Yes Smoking Status (MU): Former Smoker Type: Cigarettes Length of Time of Smoking/Using Tobacco: 20YRS Have You Smoked in the Last Year: No Review of Systems Negative: Fever, Chills Positive: Abdominal Pain, Vomiting, Nausea, Other - constipation All Other Systems Reviewed And Are Negative: Yes Physical Exam - Summary Physical Exam Summary: General: Mildly ill-appearing, Mild pain distress Skin: warm, color reflects adequate perfusion, dry Head: normal Eyes: EOMI, YANIRA ENT: normal Neck: supple, nontender Respiratory: CTA, breath sounds present Cardiovascular: RRR Abdomen: soft, tender in L lower abd, RLQ, suprapubic, and LLQ Bowel: present Musculoskeletal: normal, strength/ROM intact Neurological: normal, sensory/motor intact, A&O x3 Psychological: affect/mood appropriate Triage Information Reviewed: Yes Vital Signs On Initial Exam: Initial Vitals Temp Pulse Resp BP Pulse Ox 97.4 F 98 18 156/78 96 11/15/17 12:44 11/15/17 12:44 11/15/17 12:44 11/15/17 12:44 11/15/17 12:44 Vital Signs Reviewed: Yes Diagnostics - Vital Signs Vital Signs Temp Pulse Resp BP Pulse Ox 11/15/17 12:46 94 93 11/15/17 12:44 97.4 F 98 18 146/78 96 - Laboratory Lab Results: Lab Results 11/15/17 11/15/17 11/15/17 Range/Units 13:10 13:10 13:10 WBC 6.8 (3.5-10.8) 10^3/ul RBC 4.91 (4.0-5.4) 10^6/ul Hgb 15.7 (14.0-18.0) g/dl Hct 45 (42-52) % MCV 92 (80-94) fL MCH 32 H (27-31) pg MCHC 35 (31-36) g/dl RDW 13 (10.5-15) % Plt Count 260 (150-450) 10^3/ul MPV 7.6 (7.4-10.4) um3 Neut % (Auto) 74.4 (38-83) % Lymph % (Auto) 14.5 L (25-47) % Stone % (Auto) 8.8 H (0-7) % Eos % (Auto) 1.5 (0-6) % Baso % (Auto) 0.8 (0-2) % Absolute Neuts (auto) 5.1 (1.5-7.7) 10^3/ul Absolute Lymphs (auto) 1.0 (1.0-4.8) 10^3/ul Absolute Monos (auto) 0.6 (0-0.8) 10^3/ul Absolute Eos (auto) 0.1 (0-0.6) 10^3/ul Absolute Basos (auto) 0.1 (0-0.2) 10^3/ul Absolute Nucleated RBC 0 10^3/ul Nucleated RBC % 0.1 INR (Anticoag Therapy) 0.86 (0.77-1.02) APTT 37.3 H (26.0-36.3) seconds Sodium 137 L (139-145) mmol/L Potassium 3.8 (3.5-5.0) mmol/L Chloride 104 (101-111) mmol/L Carbon Dioxide 24 (22-32) mmol/L Anion Gap 9 (2-11) mmol/L BUN 25 H (6-24) mg/dL Creatinine 1.33 H (0.67-1.17) mg/dL Est GFR ( Amer) 72.1 (>60) Est GFR (Non-Af Amer) 56.0 (>60) BUN/Creatinine Ratio 18.8 (8-20) Glucose 108 H (70-100) mg/dL Lactic Acid (0.5-2.0) mmol/L Calcium 9.8 (8.6-10.3) mg/dL Total Bilirubin 0.40 (0.2-1.0) mg/dL AST 17 (13-39) U/L ALT 22 (7-52) U/L Alkaline Phosphatase 92 (34-104) U/L C-Reactive Protein 11.53 H (< 5.00) mg/L Total Protein 7.0 (6.4-8.9) g/dL Albumin 4.2 (3.2-5.2) g/dL Globulin 2.8 (2-4) g/dL Albumin/Globulin Ratio 1.5 (1-3) Lipase 49 (11.0-82.0) U/L Urine Color Urine Appearance Urine pH (5-9) Ur Specific [place] (1.010-1.030) Urine Protein (Negative) Urine Ketones (Negative) Urine Blood (Negative) Urine Nitrate (Negative) Urine Bilirubin (Negative) Urine Urobilinogen (Negative) Ur Leukocyte Esterase (Negative) Urine WBC (Auto) (Absent) Urine RBC (Auto) (Absent) Urine Bacteria (Absent) Urine Glucose (Negative) 11/15/17 11/15/17 Range/Units 13:10 13:45 WBC (3.5-10.8) 10^3/ul RBC (4.0-5.4) 10^6/ul Hgb (14.0-18.0) g/dl Hct (42-52) % MCV (80-94) fL MCH (27-31) pg MCHC (31-36) g/dl RDW (10.5-15) % Plt Count (150-450) 10^3/ul MPV (7.4-10.4) um3 Neut % (Auto) (38-83) % Lymph % (Auto) (25-47) % Stone % (Auto) (0-7) % Eos % (Auto) (0-6) % Baso % (Auto) (0-2) % Absolute Neuts (auto) (1.5-7.7) 10^3/ul Absolute Lymphs (auto) (1.0-4.8) 10^3/ul Absolute Monos (auto) (0-0.8) 10^3/ul Absolute Eos (auto) (0-0.6) 10^3/ul Absolute Basos (auto) (0-0.2) 10^3/ul Absolute Nucleated RBC 10^3/ul Nucleated RBC % INR (Anticoag Therapy) (0.77-1.02) APTT (26.0-36.3) seconds Sodium (139-145) mmol/L Potassium (3.5-5.0) mmol/L Chloride (101-111) mmol/L Carbon Dioxide (22-32) mmol/L Anion Gap (2-11) mmol/L BUN (6-24) mg/dL Creatinine (0.67-1.17) mg/dL Est GFR ( Amer) (>60) Est GFR (Non-Af Amer) (>60) BUN/Creatinine Ratio (8-20) Glucose (70-100) mg/dL Lactic Acid 1.0 (0.5-2.0) mmol/L Calcium (8.6-10.3) mg/dL Total Bilirubin (0.2-1.0) mg/dL AST (13-39) U/L ALT (7-52) U/L Alkaline Phosphatase (34-104) U/L C-Reactive Protein (< 5.00) mg/L Total Protein (6.4-8.9) g/dL Albumin (3.2-5.2) g/dL Globulin (2-4) g/dL Albumin/Globulin Ratio (1-3) Lipase (11.0-82.0) U/L Urine Color Yellow Urine Appearance Clear Urine pH 6.0 (5-9) Ur Specific [place] 1.019 (1.010-1.030) Urine Protein Negative (Negative) Urine Ketones Negative (Negative) Urine Blood Negative (Negative) Urine Nitrate Negative (Negative) Urine Bilirubin Negative (Negative) Urine Urobilinogen Negative (Negative) Ur Leukocyte Esterase Trace A (Negative) Urine WBC (Auto) 2+(11-20/hpf) A (Absent) Urine RBC (Auto) Trace(0-2/hpf) (Absent) Urine Bacteria Absent (Absent) Urine Glucose Negative (Negative) Result Diagrams: 11/15/17 13:10 11/15/17 13:10 Lab Statement: Any lab studies that have been ordered have been reviewed, and results considered in the medical decision making process. - Radiology Abdomen XRay Xray Interpretation: No Acute Changes Radiology Interpretation Completed By: Radiologist - NONSPECIFIC BOWEL GAS PATTERN. ED physician has reviewed this report. Re-Evaluation - Re-Evaluation First Eval Re-Evaluation Time: 15:32 Change: Improved - The pt's pain has improved while in the ED. Abdominal Pain Fem Course/Dx - Course Course Of Treatment: PAIN IMPROVED IN ED. DISCUSSED RESULTS WITH PATIENT. F/U PMD; RETURN IF WORSE. - Diagnoses Provider Diagnoses: Epigastric pain, Lower abdominal pain, UTI (urinary tract infection) Discharge - Sign-Out/Discharge Documenting (check all that apply): Discharge - Discharge Plan Condition: Stable Disposition: HOME Prescriptions: Sulfamethox/Trimethoprim DS* [Bactrim DS 800/160 TAB*] 1 tab PO BID #13 tab Patient Education Materials: Abdominal Pain (ED), Epigastric Pain (ED), Urinary Tract Infection in Men (ED) Referrals: Tran Clayton MD [Primary Care Provider] - Additional Instructions: FOLLOW UP WITH YOUR DOCTOR. RETURN TO THE EMERGENCY DEPARTMENT FOR ANY WORSENING OF YOUR CONDITION OR QUESTIONS OR CONCERNS. YOUR BLOOD PRESSURE WAS ELEVATED TODAY; FOLLOW UP WITH YOUR PRIMARY CARE DOCTOR WITHIN ONE WEEK. - Billing Disposition and Condition Condition: STABLE Disposition: HOME The documentation as recorded by the Aubrey farah Stephanie accurately reflects the service I personally performed and the decisions made by , Pierre Benito MD.
[2017-11-15 16:09] VITALS: BP 176/99
== END 2017-11-15 16:07 | disposition home or self-care (01) ==
LOC: ED 12:38
DX: R10.30 Lower abdominal pain, unspecified (principal); N39.0 Urinary tract infection, site not specified; R10.13 Epigastric pain; D64.9 Anemia, unspecified; E78.5 Hyperlipidemia, unspecified; E78.00 Pure hypercholesterolemia, unspecified; K21.9 Gastro-esophageal reflux disease without esophagitis; Z87.891 Personal history of nicotine dependence
CPT/HCPCS: 36415; 74018; 80053; 81003; 81015; 83605; 83690; 85025; 85610; 85730; 86140; 87086; 96361; 96374; 96375; 99283; A9270-GY; J1885; J2270; J2405

== ENCOUNTER 2017-11-30 14:28 | Emergency (ER) | payer MEDICARE, MEDICAID ==
[2017-11-30] MEDS ORDERED: Albuterol/Ipratropium NEB.SOL* Albuterol 2.5 MG/Ipratropium 0.5 MG 3 ML INH ONE (15:02)
[2017-11-30 15:39] LABS: ABS Basophils 0.1 10^3/ul (0-0.2); ABS Eosinophils 0.2 10^3/ul (0-0.6); ABS Lymphocytes 1.1 10^3/ul (1.0-4.8); ABS Monocytes 0.7 10^3/ul (0-0.8); ABS Neutrophils 4.9 10^3/ul (1.5-7.7); ABS Nucleated RBC 0 10^3/ul; Eosinophil % 3.2 % (0-6); Hematocrit 39 % (42-52); Hemoglobin 13.7 g/dl (14.0-18.0); Lymphocyte % 15.3 % (25-47); Mean Corpuscular HGB Conc 35 g/dl (31-36); Mean Corpuscular Hemoglobin 32 pg (27-31); Mean Corpuscular Volume 92 fL (80-94); Mean Platelet Volume 7.6 um3 (7.4-10.4); Nucleated Red Blood Cells % 0.1; Platelet Count 273 10^3/ul (150-450); Red Blood Count 4.24 10^6/ul (4.0-5.4); Red Cell Distribution Width 13 % (10.5-15); White Blood Count 6.9 10^3/ul (3.5-10.8)
--- NOTE | 2017-11-30 15:44 | ED ---
Respiratory - HPI Summary HPI Summary: 52-year-old male presents to shortness breath for the past day. Patient states has also been feeling nauseous. Has lower abdominal pain. No chest pain. Patient states that normally when he gets this takes inhaler and feels better. Was a smoker but denies that has COPD but per chart patient does have COPD. No sore throat. No sinus congestion. No headache. No fevers. She denies any cough. Shortness of breath is constant. He states that a breathing treatment resolves this. He denies any pain or swelling in his calf muscles. Patient states has been dry heaving. No diarrhea or constipation. Patient has a history of small bowel obstruction. - History of Current Complaint Chief Complaint: EDShortnessOfBreath Stated Complaint: DIFFICULTY BREATHING Time Seen by Provider: 11/30/17 14:55 Pain Intensity: 8 - Allergy/Home Medications Allergies/Adverse Reactions: Allergies Allergy/AdvReac Type Severity Reaction Status Date / Time No Known Allergies Allergy Verified 09/20/17 14:06 PMH/Surg Hx/FS Hx/Imm Hx Endocrine/Hematology History: Reports: Hx Thyroid Disease, Hx Anemia Denies: Hx Anticoagulant Therapy, Hx Diabetes, Hx Systemic Lupus Erythematosus Cardiovascular History: Reports: Hx Hypercholesterolemia, Other Cardiovascular Problems/Disorders - HYPERLIPIDEMIA Denies: Hx Congestive Heart Failure, Hx Hypertension, Hx Pacemaker/ICD Respiratory History: Reports: Hx Chronic Bronchitis, Hx Chronic Obstructive Pulmonary Disease (COPD) Denies: Hx Asthma Comment Only: Other Respiratory Problems/Disorders - Sarcoidosis GI History: Reports: Hx Gastroesophageal Reflux Disease, Hx Irritable Bowel, Hx Obstructive Bowel - Small bowel, Other GI Disorders - CYST REMOVED FROM BLADDER , LATE Denies: Hx Ulcer History: Reports: Hx Benign Prostatic Hyperplasia, Hx Kidney Stones, Hx Renal Disease - LEFT KIDNEY DECREASE IN FUNCTION, Other Problems/Disorders - HX OF CYST IN THE BLADDER Denies: Hx Dialysis Musculoskeletal History: Reports: Other Musculoskeletal History - Sarcoidosis Denies: Hx Rheumatoid Arthritis Sensory History: Reports: Hx Contacts or Glasses Denies: Hx Hearing Aid, Hx Hearing Problem Opthamlomology History: Reports: Hx Contacts or Glasses Neurological History: Reports: Hx Headaches, Hx Seizures, Other Neuro Impairments/Disorders - "light concussion" Psychiatric History: Reports: Hx Anxiety, Hx Depression, Hx Post Traumatic Stress Disorder, Hx Inpatient Treatment, Hx Community Mental Health Tx, Hx Schizophrenia, Hx Suicide Attempt, Hx of Violent Episodes Against Others, Hx Substance Abuse, Other Psychiatric Issues/Disorders Denies: Hx Eating Disorder, Hx Panic Disorder - Cancer History Hx Chemotherapy: No - Surgical History Surgery Procedure, Year, and Place: 2009 APPENDECTOMY, [facility] [place] CYST REMOVED FROM BLADDER, [facility] [place] CHOLECYSTECTOMY-12/2012 Hx Anesthesia Reactions: No - Immunization History Date of Tetanus Vaccine: Unknown Date of Influenza Vaccine: Fall 2013 Infectious Disease History: No Infectious Disease History: Denies: Hx Clostridium Difficile, Hx Hepatitis, Hx Human Immunodeficiency Virus (HIV), Hx of Known/Suspected MRSA, Hx Shingles, Hx Tuberculosis, Hx Known/ Suspected VRE, Hx Known/Suspected VRSA, History Other Infectious Disease, Traveled Outside the [place] in Last 30 Days - Family History Known Family History: Positive: Cardiac Disease, Hypertension, Seizure Disorder - sister, Other - cancer - Social History Alcohol Use: None Alcohol Amount: stopped 4 years ago Hx Substance Use: Yes Substance Use Type: Reports: None Substance Use Comment - Amount & Last Used: pt states he has not used any drugs since 2011. Hx Tobacco Use: Yes Smoking Status (MU): Former Smoker Type: Cigarettes Length of Time of Smoking/Using Tobacco: 20YRS Have You Smoked in the Last Year: No Review of Systems Negative: Fever Negative: Chest Pain Positive: Shortness Of Breath, Cough Positive: Abdominal Pain, Vomiting, Nausea. Negative: Diarrhea All Other Systems Reviewed And Are Negative: Yes Physical Exam Triage Information Reviewed: Yes Vital Signs On Initial Exam: Initial Vitals Temp Pulse Resp BP Pulse Ox 99.4 F 94 24 134/85 94 11/30/17 14:44 11/30/17 14:44 11/30/17 14:44 11/30/17 14:44 11/30/17 14:44 Vital Signs Reviewed: Yes Appearance: Positive: Well-Appearing Skin: Positive: Warm, Dry Head/Face: Positive: Normal Head/Face Inspection Eyes: Positive: Normal, EOMI, YANIRA, Conjunctiva Clear ENT: Positive: Normal ENT inspection, Pharynx normal, TMs normal Respiratory/Lung Sounds: Positive: Clear to Auscultation, Breath Sounds Present Cardiovascular: Positive: Normal, RRR Abdomen Description: Positive: Nontender, Soft Bowel Sounds: Positive: Present Musculoskeletal: Positive: Normal Neurological: Positive: Normal Psychiatric: Positive: Normal Diagnostics - Vital Signs Vital Signs Temp Pulse Resp BP Pulse Ox 11/30/17 15:11 92 24 94 11/30/17 14:44 99.4 F 94 24 134/85 94 - Laboratory Lab Results: Lab Results 11/30/17 Range/Units 15:15 WBC 6.9 (3.5-10.8) 10^3/ul RBC 4.24 (4.0-5.4) 10^6/ul Hgb 13.7 L (14.0-18.0) g/dl Hct 39 L (42-52) % MCV 92 (80-94) fL MCH 32 H (27-31) pg MCHC 35 (31-36) g/dl RDW 13 (10.5-15) % Plt Count 273 (150-450) 10^3/ul MPV 7.6 (7.4-10.4) um3 Neut % (Auto) 70.4 (38-83) % Lymph % (Auto) 15.3 L (25-47) % [place] % (Auto) 10.1 H (0-7) % Eos % (Auto) 3.2 (0-6) % Baso % (Auto) 1.0 (0-2) % Absolute Neuts (auto) 4.9 (1.5-7.7) 10^3/ul Absolute Lymphs (auto) 1.1 (1.0-4.8) 10^3/ul Absolute Monos (auto) 0.7 (0-0.8) 10^3/ul Absolute Eos (auto) 0.2 (0-0.6) 10^3/ul Absolute Basos (auto) 0.1 (0-0.2) 10^3/ul Absolute Nucleated RBC 0 10^3/ul Nucleated RBC % 0.1 Result Diagrams: 11/30/17 15:15 11/30/17 15:15 Lab Statement: Any lab studies that have been ordered have been reviewed, and results considered in the medical decision making process. - Radiology chest Xray Interpretation: No Acute Changes Radiology Interpretation Completed By: Radiologist abd Xray Interpretation: No Acute Changes Radiology Interpretation Completed By: Radiologist - EKG No standard instances Cardiac Rate: NL EKG Rhythm: Sinus Rhythm EKG Interpretation: sinus rhythm, LVH, no change previous EKG Comparison: No Significant Change Re-Evaluation - Re-Evaluation First Eval Re-Evaluation Time: 15:54 Change: Improved Comment: feeling better after breathing treatment, nontender abdomen, decline abdominal pain at this time Disposition - Course Course Of Treatment: 52-year-old male presents to [facility] breath for the past day. Patient states has also been feeling nauseous. Has lower abdominal pain. No chest pain. Patient states that normally when he gets this takes inhaler and feels better. Was a smoker but denies that has COPD but per chart patient does have COPD. No sore throat. No sinus congestion. No headache. No fevers. She denies any cough. Shortness of breath is constant. He states that a breathing treatment resolves this. He denies any pain or swelling in his calf muscles. Patient states has been dry heaving. No diarrhea or constipation. Patient has a history of small bowel obstruction. on exam lungs CTA. abd soft nontender. after breathing treatment patient states feels better and would like some food. labs wbc normal. d-dimer normal. troponin neg. bnp normal. chest xray normal. abd xray normal. ekg sinus rhythm that is similiar to previous. do not believe patient has SBO as abdomen soft nontender and on reeval patient no longer complaining of abd pain. will treat as copd with steriod and inhaler. patient understand and agrees with plan. - Differential Dx - Cardiopulmonary Differential Diagnoses - Cardiopulmonary: Bronchitis, Exacerbation Of COPD, Lower Resp Infection - Diagnoses Provider Diagnoses: SOB (shortness of breath), COPD exacerbation, Nausea Discharge - Sign-Out/Discharge Documenting (check all that apply): Discharge - Discharge Plan Condition: Good Disposition: HOME Prescriptions: Albuterol HFA INHALER* [Ventolin HFA Inhaler*] 1 puff INH Q4H PRN #1 mdi PRN Reason: Sob/Wheezing Ondansetron ODT TAB* [Zofran 4 MG Odt TAB*] 4 mg PO Q6H PRN #8 tab.odt PRN Reason: Nausea predniSONE TAB* [Deltasone TAB*] 50 mg PO DAILY #4 tab Patient Education Materials: Shortness of Breath (ED) Referrals: Tran Clayton MD [Primary Care Provider] - Additional Instructions: Use inhaler up to two puffs every 4 hours for SOB and wheezing Take steroid once a day for 4 more days starting tomorrow take zofran every 6 hours for nausea Take Tylenol for pain every 6 hours follow up with primary within 5 days Return to ED if develop any new or worsening symptoms - Billing Disposition and Condition Condition: GOOD Disposition: HOME
[2017-11-30] MEDS ORDERED: Ondansetron ODT TAB* 4 MG PO ONE (15:55)
[2017-11-30 16:00] LABS: EGFR Non-African American 48.8 (>60)
[2017-11-30] MEDS ORDERED: NS 0.9% 1000 ML* 1,000 ML IV ONE (16:03)
[2017-11-30] MEDS: Ondansetron INJ* 2 MG/ML VIAL IV ONE ×2 (16:05→16:07)
--- NOTE | 2017-11-30 16:05 | RAD ---
INDICATION: Shortness of breath. COMPARISON: Comparison is made with prior study from August 16, 2017. TECHNIQUE: Dual-energy PA and lateral views of the chest were obtained. FINDINGS: The heart is within normal limits in size. Mediastinal and hilar contours appear within normal limits. The lungs are clear. No pleural effusion is present. IMPRESSION: NO EVIDENCE FOR ACTIVE CARDIOPULMONARY DISEASE.
--- NOTE | 2017-11-30 16:07 | RAD ---
INDICATION: Lower abdominal pain and vomiting. COMPARISON: Comparison is made with a prior KUB series from November 15, 2017. TECHNIQUE: Supine and upright views of the abdomen were obtained. FINDINGS: The small bowel and colon appear nondistended. No free intraperitoneal air is seen. There is a moderate amount retained stool. Surgical clips are noted in the right upper quadrant consistent with a prior cholecystectomy. There are also multiple surgical clips which project over the pelvis on the left side. IMPRESSION: NO EVIDENCE FOR OBSTRUCTION.
[2017-11-30] MEDS ORDERED: methylPREDNISolone 125 MG* 2 ML VIAL IV ONE (16:13)
[2017-11-30 17:46] VITALS: BP 133/83
== END 2017-11-30 17:45 | disposition home or self-care (01) ==
LOC: ED 14:28
DX: R06.02 Shortness of breath (principal); J44.1 Chronic obstructive pulmonary disease with (acute) exacerbation; R11.0 Nausea; R05 Cough; R11.2 Nausea with vomiting, unspecified
CPT/HCPCS: 36415; 71046; 74019; 80053; 83605; 83880; 84484; 85025; 85379; 86140; 87040; 93005; 94640; 99282; A9270-GY; J2405; J2930

== ENCOUNTER 2017-12-04 16:03 | Emergency (ER) | payer MEDICARE, MEDICAID ==
[2017-12-04] MEDS ORDERED: Al Hydrox/Mg Hydrox/Simet LIQ* 30 ML UDC PO ONE (16:56)
[2017-12-04] MEDS ORDERED: Lidocaine 2% VISCOUS* 15 ML UDC PO ONE (17:00)
[2017-12-04 17:40] LABS: ABS Basophils 0.1 10^3/ul (0-0.2); ABS Eosinophils 0 10^3/ul (0-0.6); ABS Lymphocytes 0.7 10^3/ul (1.0-4.8); ABS Monocytes 0.3 10^3/ul (0-0.8); ABS Neutrophils 6.7 10^3/ul (1.5-7.7); ABS Nucleated RBC 0 10^3/ul; Eosinophil % 0.1 % (0-6); Hematocrit 41 % (42-52); Hemoglobin 14.3 g/dl (14.0-18.0); Lymphocyte % 9.6 % (25-47); Mean Corpuscular HGB Conc 35 g/dl (31-36); Mean Corpuscular Hemoglobin 32 pg (27-31); Mean Corpuscular Volume 92 fL (80-94); Mean Platelet Volume 7.5 um3 (7.4-10.4); Nucleated Red Blood Cells % 0.1; Platelet Count 293 10^3/ul (150-450); Red Blood Count 4.46 10^6/ul (4.0-5.4); Red Cell Distribution Width 13 % (10.5-15); White Blood Count 7.8 10^3/ul (3.5-10.8)
[2017-12-04 17:58] LABS: EGFR Non-African American 50.3 (>60)
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
[2017-12-04 21:59] VITALS: BP 152/73
--- NOTE | 2017-12-05 22:13 | ED ---
Anders John Nilda, scribed for Loan Cohen MD on 12/04/17 at 1950 . Progress - Progress Note Progress Note: This pt was s/o by Dr. Handley, pending dispo, awaiting MHE. [2137] Associate of Dr. Lucas (Psychiatry) states Dr. Lucas will D/C pt with Dx PTSD. Pt is agreeable with this plan. Course/Dx - Course Course Of Treatment: This pt was s/o by Dr. Handley, pending dispo, awaiting MHE. [2137] Associate of Dr. Lucas (Psychiatry) states Dr. Lucas will D/C pt with Dx PTSD. Pt is agreeable with this plan. - Diagnoses Provider Diagnoses: PTSD (post-traumatic stress disorder) - Provider Notifications Discussed Care Of Patient With: Campbell Lucas - Psychiatry Time Discussed With Above Provider: 21:38 Instructed by Provider To: Other - pt will be D/C Discharge - Sign-Out/Discharge Documenting (check all that apply): Discharge - home - Discharge Plan Condition: Stable Disposition: HOME Referrals: Tran Clayton MD [Primary Care Provider] - The documentation as recorded by the Anders farah Nilda accurately reflects the service I personally performed and the decisions made by , Loan Cohen MD.
== END 2017-12-04 22:51 | disposition home or self-care (01) ==
LOC: ED 16:03
DX: F43.10 Post-traumatic stress disorder, unspecified (principal); R45.851 Suicidal ideations; F32.9 Major depressive disorder, single episode, unspecified; Z87.891 Personal history of nicotine dependence; R10.9 Unspecified abdominal pain
CPT/HCPCS: 36415; 80053; 80320; 80329; 82550; 84443; 84484; 85025; 93005; 99285; A9270-GY; G0480

== ENCOUNTER 2017-12-09 04:58 | Inpatient (IN) | payer MEDICARE, MEDICAID ==
[2017-12-09] MEDS ORDERED: NS 0.9% 1000 ML* 1,000 ML IV ONE (05:09)
[2017-12-09] MEDS ORDERED: Ondansetron INJ* 2 MG/ML VIAL IV ONE (05:09)
[2017-12-09] MEDS ORDERED: Famotidine TAB* 20 MG PO ONE (05:10)
[2017-12-09 05:42] LABS: Urine Appearance Clear; Urine Blood 1+ (Negative); Urine Color Yellow; Urine Ketones Negative (Negative); Urine Protein Negative (Negative); Urine Specific Gravity 1.017 (1.010-1.030); Urine Urobilinogen Negative (Negative)
[2017-12-09 06:20] LABS: EGFR Non-African American 63.7 (>60)
[2017-12-09 06:21] LABS: ABS Basophils 0 10^3/ul (0-0.2); ABS Eosinophils 0.2 10^3/ul (0-0.6); ABS Monocytes 0.8 10^3/ul (0-0.8); ABS Neutrophils 8.4 10^3/ul (1.5-7.7); ABS Nucleated RBC 0 10^3/ul; Eosinophil % 1.5 % (0-6); Hematocrit 46 % (42-52); Hemoglobin 15.9 g/dl (14.0-18.0); Lymphocyte % 9.6 % (25-47); Mean Corpuscular HGB Conc 34 g/dl (31-36); Mean Corpuscular Hemoglobin 32 pg (27-31); Mean Corpuscular Volume 93 fL (80-94); Mean Platelet Volume 7.8 um3 (7.4-10.4); Nucleated Red Blood Cells % 0; Platelet Count 273 10^3/ul (150-450); Red Cell Distribution Width 13 % (10.5-15); White Blood Count 10.4 10^3/ul (3.5-10.8)
[2017-12-09] MEDS ORDERED: Al Hydrox/Mg Hydrox/Simet LIQ* 30 ML UDC PO ONE ×2 (06:24→18:39)
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
--- NOTE | 2017-12-09 11:09 | ED ---
Aubrey John Angela, scribed for Antolin Dunham MD on 12/09/17 at 1028 . Progress - Progress Note Progress Note: This pt was signed out by Dr. Hong, pending disposition, awaiting MHE. Pt was evaluated by the mental health director of dementia operations and his case was reviewed by Dr. Lucas. Dr. Lucas recommends admission for the pt. Pt will be admitted, in stable condition, with a diagnosis of mood disorder NOS. Course/Dx - Diagnoses Provider Diagnoses: Mood disorder Discharge - Sign-Out/Discharge Documenting (check all that apply): Discharge/Admit/Transfer - Admit - Discharge Plan Condition: Stable Disposition: [facility] [place] Referrals: Tran Clayton MD [Primary Care Provider] - The documentation as recorded by the Aubrey farah Angela accurately reflects the service I personally performed and the decisions made by Roly bishop Walter, MD.
[2017-12-09] MEDS ORDERED: Ondansetron TAB* 4 MG PO ONE (15:59)
[2017-12-09] MEDS ORDERED: Dicyclomine CAP* 10 MG PO ONE (18:39)
[2017-12-09] MEDS ORDERED: QUEtiapine TAB* 25 MG PO ONE (18:39)
--- NOTE | 2017-12-09 20:02 | ED ---
Progress - Progress Note Progress Note: This pt was signed out by Dr. Hong, pending disposition, awaiting MHE. Pt was evaluated by the mental health supervisor hand workers and his case was reviewed by Dr. Lucas. Dr. Lucas recommends admission for the pt. Pt will be admitted, in stable condition, with a diagnosis of mood disorder NOS. I assumed care of back from this patient from Dr. Dunham. Patient received full , complete mental health evaluation and observation throughout the day. It is elected that he be admitted on a voluntary basis to the mental health beyer here. He remained stable throughout his stay. His GI symptoms of improved. - Consult/PCP Time Called: 07:00 Course/Dx - Course Course Of Treatment: Patient with GI complaints and also exacerbation of his chronic mental health condition. He is a frequent visitor for same. There is nausea, vomiting 1 and several episodes of watery diarrhea. There is no abdominal tenderness. His labs are benign. Treated here with IV fluids, Zofran and GI cocktail/Pepcid with relief. Pending mental health evaluation. Signed out to oncoming ER physician for disposition per mental health. - Diagnoses Provider Diagnoses: Depressive disorder, Gastroenteritis Discharge - Sign-Out/Discharge Documenting (check all that apply): Discharge/Admit/Transfer - Discharge Plan Condition: Stable Disposition: [facility] [place] Referrals: Tran Clayton MD [Primary Care Provider] - - Billing Disposition and Condition Condition: STABLE Disposition: [facility] [place]
[2017-12-09] MEDS ORDERED: Zolpidem TAB* 5 MG PO ONE (21:00)
[2017-12-09] MEDS ORDERED: Ziprasidone * 20 MG CAP (generic Geodon) PO ONE (21:00)
[2017-12-09] MEDS ORDERED: Al Hydrox/Mg Hydrox/Simet LIQ* 30 ML UDC ONE (22:04)
[2017-12-09] MEDS: Al Hydrox/Mg Hydrox/Simet LIQ* 30 ML UDC PO PRN (22:05)
[2017-12-10] MEDS: Acetaminophen TAB* 325 MG PO PRN ×2 (04:31→07:57)
[2017-12-10] MEDS ORDERED: Cetirizine* 10 MG TAB PO PRN (08:49)
[2017-12-10] MEDS ORDERED: diPHENhydraMINE PO* 25 MG PO PRN (08:49)
[2017-12-10] MEDS ORDERED: Promethazine TAB* 25 MG PO PRN (08:49)
[2017-12-10] MEDS: Vitamin THERAPEUTIC TAB PO SCH (08:52)
[2017-12-10] MEDS ORDERED: cloNIDine TAB* 0.1 MG PO SCH (09:00)
[2017-12-10] MEDS: Tamsulosin CAP* 0.4 MG PO SCH (10:10)
[2017-12-10] MEDS: DULoxetine DR CAP* 60 MG CAP.DR PO SCH (10:10)
[2017-12-10] MEDS: Omeprazole CAP* 20 MG PO SCH (10:11)
[2017-12-10] MEDS: Levothyroxine TAB* 50 MCG TAB PO SCH (10:11)
[2017-12-10] MEDS: Ziprasidone * 20 MG CAP (generic Geodon) PO SCH ×2 (10:11→20:11)
[2017-12-10] MEDS: Dicyclomine CAP* 10 MG PO SCH ×4 (10:14→20:11)
[2017-12-10] MEDS: Al Hydrox/Mg Hydrox/Simet LIQ* 30 ML UDC PO PRN ×2 (10:52→20:10)
[2017-12-10] MEDS: Topiramate TAB(*) 100 MG PO SCH (10:53)
[2017-12-10] MEDS: Famotidine TAB* 20 MG PO SCH (10:53)
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
--- NOTE | 2017-12-10 16:57 | PN ---
[facility]: Group Therapy Note - Service Type Service Type: [id number] Group Psychotherapy - Medication Education Group: Patient attended group and presented with flat affect that did not vary with discussion. Although responsive to direct prompts to respond to questions, patient did not engage in spontaneous conversation.
[2017-12-10] MEDS: cloNIDine TAB* 0.1 MG PO SCH (20:12)
[2017-12-11] MEDS: Ziprasidone * 20 MG CAP (generic Geodon) PO SCH ×2 (08:43→21:45)
[2017-12-11] MEDS: Vitamin THERAPEUTIC TAB PO SCH (08:44)
[2017-12-11] MEDS: Tamsulosin CAP* 0.4 MG PO SCH (08:44)
[2017-12-11] MEDS: Famotidine TAB* 20 MG PO SCH (08:44)
[2017-12-11] MEDS: DULoxetine DR CAP* 60 MG CAP.DR PO SCH (08:44)
[2017-12-11] MEDS: Topiramate TAB(*) 100 MG PO SCH (08:44)
[2017-12-11] MEDS: Omeprazole CAP* 20 MG PO SCH (08:44)
[2017-12-11] MEDS: Dicyclomine CAP* 10 MG PO SCH ×4 (08:45→21:43)
[2017-12-11] MEDS: Levothyroxine TAB* 50 MCG TAB PO SCH (08:46)
--- NOTE | 2017-12-11 11:25 | PN ---
Subjective - Subjective Date of Service: 12/11/17 Service Type: [id number] Hosp care 15 min low complexity Subjective: Patient is euthymic with bright affect upon approach. He reports his mood is "good" and denies AH. He endorses mild anxiety. He is adherent to unit routines and in behavioral control. He has not requested prn medications for mental or physical distress. Objective - Appearance Appearance: Obese Dysmorphic Features: Yes Hygiene: Normal Grooming: Fairly Well Kept - Behavior Psychomotor Activities: Normal Exhibits Abnormal Movement: No - Attitude and Relatedness Attitude and Relatedness: Cooperative Eye Contact: Good - Speech Quality: Unpressured Latencies: Normal Quantity: Appropriate - Mood Patient's Decription of Mood: "Good" - Affect Observed Affect: Good Affect Consistent with: Euthymia - Thought Process Patient's Thought Process: Coherent, Goal Directed Thought Content: No Passive Wish, No Suicidal Planning, No Homicidal Ideation, No Paranoid Ideation - Sensorium Experiencing Hallucinations: No, Sensorium is Clear Type of Hallucinations: Visual: No, Auditory: No, Command: No - Level of Consciousness Level of Consciousness: Alert Orientation: Yes Intact, Yes Orientated to Time, Yes Orientated to Place, Yes Orientated to Person - Impulse Control Impulse Control: Intact - Insight and Judgement Insight and Judgement: Fair - Group Participation Particating in Group Activities: Yes - Medication Management Medication Management Adherence: Yes Assessment - Assessment Merits Inpatient Hospitalization: For Immediate Safety, For Stabilization, Consolidate Improvements Inpatient DSM-V Dx: F43.12 Clinical Impression: 52yo white male with history of severe PTSD and multiple hospitalizations. He presented to the ED with c/o command AH. He merits short-term hospital stay for immediate safety and stabilization. Plan - Plan Treatment Plan: Name: SONIA MONDRAGON Birthdate: 1965 [id number] continue acute intensive psychiatric treatment. continue outpatient medications. decrease to q30min observation and allow staff pass. keep hospitalization brief to avoid decompensation or dependence. Continued Medication Management: Continue Outpt Medication Medications: Current Medications Acetaminophen (Tylenol Tab*) 650 mg PO Q4H PRN PRN Reason: PAIN or TEMP > 101 F Last Admin: 12/10/17 07:57 Dose: 650 mg Al Hydrox/Mg Hydrox/Simethicone (Maalox Plus*) 30 ml PO Q4H PRN PRN Reason: INDIGESTION Last Admin: 12/10/17 20:10 Dose: 30 ml Cetirizine HCl (Zyrtec*) 10 mg PO DAILY PRN; Protocol PRN Reason: Allergy Symptoms Clonidine HCl (Catapres Tab*) 0.3 mg PO BEDTIME [facility] Last Admin: 12/10/17 20:12 Dose: 0.3 mg Dicyclomine HCl (Bentyl Cap*) 20 mg PO QID [facility] Last Admin: 12/11/17 08:45 Dose: 20 mg Diphenhydramine HCl (Benadryl Po*) 25 mg PO Q6H PRN PRN Reason: VOMITING Duloxetine HCl (Cymbalta Cap*) 60 mg PO DAILY [facility] Last Admin: 12/11/17 08:44 Dose: 60 mg Famotidine (Pepcid Tab*) 20 mg PO DAILY [facility] Last Admin: 12/11/17 08:44 Dose: 20 mg Levothyroxine Sodium (Synthroid Tab*) 50 mcg PO DAILY@0600 [facility] Last Admin: 12/11/17 08:46 Dose: 50 mcg Multivitamins (Theragran Tab*) 1 tab PO DAILY [facility] Last Admin: 12/11/17 08:44 Dose: 1 tab Omeprazole (Prilosec Cap*) 20 mg PO DAILY@0730 [facility] Last Admin: 12/11/17 08:44 Dose: 20 mg Promethazine HCl (Phenergan Tab*) 25 mg PO Q8H PRN PRN Reason: NAUSEA Quetiapine Fumarate (Seroquel Tab*) 25 mg PO Q4H PRN PRN Reason: AGITATION/ANXIETY Tamsulosin HCl (Flomax Cap*) 0.4 mg PO DAILY [facility] Last Admin: 12/11/17 08:44 Dose: 0.4 mg Topiramate (Topamax(*)) 100 mg PO DAILY [facility] Last Admin: 12/11/17 08:44 Dose: 100 mg Ziprasidone (Geodon (Generic) *) 60 mg PO BID [facility] Last Admin: 12/11/17 08:43 Dose: 60 mg Zolpidem Tartrate (Ambien Tab*) 5 mg PO BEDTIME PRN PRN Reason: SLEEP - Discharge Plan Discharge Plan: Outpatient Follow Up Outpatient Program: [facility]
[2017-12-11] MEDS: Acetaminophen TAB* 325 MG PO PRN (19:32)
[2017-12-11] MEDS: cloNIDine TAB* 0.1 MG PO SCH (21:44)
[2017-12-11] MEDS: Zolpidem TAB* 5 MG PO PRN (23:50)
[2017-12-12] MEDS: Omeprazole CAP* 20 MG PO SCH (07:00)
[2017-12-12] MEDS: Levothyroxine TAB* 50 MCG TAB PO SCH (07:00)
[2017-12-12] MEDS: Dicyclomine CAP* 10 MG PO SCH ×4 (09:01→20:43)
[2017-12-12] MEDS: Famotidine TAB* 20 MG PO SCH (09:02)
[2017-12-12] MEDS: DULoxetine DR CAP* 60 MG CAP.DR PO SCH (09:02)
[2017-12-12] MEDS: Vitamin THERAPEUTIC TAB PO SCH (09:02)
[2017-12-12] MEDS: Topiramate TAB(*) 100 MG PO SCH (09:02)
[2017-12-12] MEDS: Ziprasidone * 20 MG CAP (generic Geodon) PO SCH ×2 (09:02→20:43)
[2017-12-12] MEDS: Tamsulosin CAP* 0.4 MG PO SCH (09:02)
[2017-12-12] MEDS: Al Hydrox/Mg Hydrox/Simet LIQ* 30 ML UDC PO PRN ×2 (11:20→16:01)
[2017-12-12] MEDS: QUEtiapine TAB* 25 MG PO PRN (14:39)
[2017-12-12] MEDS: cloNIDine TAB* 0.1 MG PO SCH (20:48)
[2017-12-13] MEDS: Omeprazole CAP* 20 MG PO SCH (06:30)
[2017-12-13] MEDS: Levothyroxine TAB* 50 MCG TAB PO SCH (06:30)
[2017-12-13] MEDS: Dicyclomine CAP* 10 MG PO SCH ×4 (09:18→20:45)
[2017-12-13] MEDS: DULoxetine DR CAP* 60 MG CAP.DR PO SCH (09:19)
[2017-12-13] MEDS: Ziprasidone * 20 MG CAP (generic Geodon) PO SCH ×2 (09:19→20:45)
[2017-12-13] MEDS: Famotidine TAB* 20 MG PO SCH (09:19)
[2017-12-13] MEDS: Tamsulosin CAP* 0.4 MG PO SCH (09:19)
[2017-12-13] MEDS: Topiramate TAB(*) 100 MG PO SCH (09:20)
[2017-12-13] MEDS: Vitamin THERAPEUTIC TAB PO SCH (09:20)
[2017-12-13] MEDS: QUEtiapine TAB* 25 MG PO PRN (10:05)
[2017-12-13] MEDS: Al Hydrox/Mg Hydrox/Simet LIQ* 30 ML UDC PO PRN ×3 (13:06→22:35)
--- NOTE | 2017-12-13 15:49 | PN ---
Subjective - Subjective Date of Service: 12/13/17 Service Type: [id number] Hosp care 15 min low complexity Subjective: Chris has been doing fine on the unit per all observations and reports. He was in his room resting but came out happily. Says he was doing fine and didn't have any flashbacks, hallucinations, delusions or thoughts of violence towards self or others. He wants to be discharged to his residence and says everything is fine over there. Sleeping and eating good, taking his meds. Objective - Appearance Appearance: Obese Dysmorphic Features: No Hygiene: Mal-odorous Grooming: Disheveled - Behavior Psychomotor Activities: Abnormal-Decreased Exhibits Abnormal Movement: No - Attitude and Relatedness Attitude and Relatedness: Cooperative Eye Contact: Good - Speech Quality: Unpressured Latencies: Long - Mood Patient's Decription of Mood: "Fine" - Affect Observed Affect: Depressed Affect Consistent with: Euthymia - Thought Process Patient's Thought Process: Coherent, Goal Directed Thought Content: No Passive Wish, No Suicidal Planning, No Homicidal Ideation, No Paranoid Ideation - Sensorium Experiencing Hallucinations: No, Sensorium is Clear Type of Hallucinations: Visual: No, Auditory: No, Command: No - Level of Consciousness Level of Consciousness: Alert Orientation: Yes Intact, Yes Orientated to Time, Yes Orientated to Place, Yes Orientated to Person - Impulse Control Impulse Control: Tenuous - Insight and Judgement Insight and Judgement: Poor - Group Participation Particating in Group Activities: No - Medication Management Medication Management Adherence: Yes Assessment - Assessment Merits Inpatient Hospitalization: For Immediate Safety, For Stabilization, Pending Safe DC Plan Inpatient DSM-V Dx: F43.12 Plan - Plan Treatment Plan: Name: SONIA MONDRAGON Birthdate: 1965 [id number] Continued Medication Management: Continue Outpt Medication Medications: Current Medications Acetaminophen (Tylenol Tab*) 650 mg PO Q4H PRN PRN Reason: PAIN or TEMP > 101 F Last Admin: 12/11/17 19:32 Dose: 650 mg Al Hydrox/Mg Hydrox/Simethicone (Maalox Plus*) 30 ml PO Q4H PRN PRN Reason: INDIGESTION Last Admin: 12/13/17 13:06 Dose: 30 ml Cetirizine HCl (Zyrtec*) 10 mg PO DAILY PRN; Protocol PRN Reason: Allergy Symptoms Clonidine HCl (Catapres Tab*) 0.3 mg PO BEDTIME [facility] Last Admin: 12/12/17 20:48 Dose: 0.3 mg Dicyclomine HCl (Bentyl Cap*) 20 mg PO QID [facility] Last Admin: 12/13/17 13:04 Dose: 20 mg Diphenhydramine HCl (Benadryl Po*) 25 mg PO Q6H PRN PRN Reason: VOMITING Duloxetine HCl (Cymbalta Cap*) 60 mg PO DAILY [facility] Last Admin: 12/13/17 09:19 Dose: 60 mg Famotidine (Pepcid Tab*) 20 mg PO DAILY [facility] Last Admin: 12/13/17 09:19 Dose: 20 mg Levothyroxine Sodium (Synthroid Tab*) 50 mcg PO DAILY@0600 [facility] Last Admin: 12/13/17 06:30 Dose: 50 mcg Multivitamins (Theragran Tab*) 1 tab PO DAILY [facility] Last Admin: 12/13/17 09:20 Dose: 1 tab Omeprazole (Prilosec Cap*) 20 mg PO DAILY@0730 [facility] Last Admin: 12/13/17 06:30 Dose: 20 mg Promethazine HCl (Phenergan Tab*) 25 mg PO Q8H PRN PRN Reason: NAUSEA Quetiapine Fumarate (Seroquel Tab*) 25 mg PO Q4H PRN PRN Reason: AGITATION/ANXIETY Last Admin: 12/13/17 10:05 Dose: 25 mg Tamsulosin HCl (Flomax Cap*) 0.4 mg PO DAILY [facility] Last Admin: 12/13/17 09:19 Dose: 0.4 mg Topiramate (Topamax(*)) 100 mg PO DAILY [facility] Last Admin: 12/13/17 09:20 Dose: 100 mg Ziprasidone (Geodon (Generic) *) 60 mg PO BID [facility] Last Admin: 12/13/17 09:19 Dose: 60 mg Zolpidem Tartrate (Ambien Tab*) 5 mg PO BEDTIME PRN PRN Reason: SLEEP Last Admin: 12/11/17 23:50 Dose: 5 mg - Discharge Plan Discharge Plan: Outpatient Follow Up Outpatient Program: [facility]
[2017-12-13] MEDS: cloNIDine TAB* 0.1 MG PO SCH (20:46)
[2017-12-13] MEDS: Zolpidem TAB* 5 MG PO PRN (22:36)
[2017-12-14] MEDS: Levothyroxine TAB* 50 MCG TAB PO SCH (06:45)
[2017-12-14] MEDS: Omeprazole CAP* 20 MG PO SCH (06:45)
[2017-12-14 08:08] VITALS: BP 118/66
[2017-12-14] MEDS: Ziprasidone * 20 MG CAP (generic Geodon) PO SCH (08:24)
[2017-12-14] MEDS: Dicyclomine CAP* 10 MG PO SCH ×2 (08:24→12:35)
[2017-12-14] MEDS: Tamsulosin CAP* 0.4 MG PO SCH (08:25)
[2017-12-14] MEDS: DULoxetine DR CAP* 60 MG CAP.DR PO SCH (08:25)
[2017-12-14] MEDS: Vitamin THERAPEUTIC TAB PO SCH (08:25)
[2017-12-14] MEDS: Topiramate TAB(*) 100 MG PO SCH (08:25)
[2017-12-14] MEDS: Famotidine TAB* 20 MG PO SCH (08:25)
[2017-12-14] MEDS: Al Hydrox/Mg Hydrox/Simet LIQ* 30 ML UDC PO PRN (10:44)
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
== END 2017-12-14 14:40 | disposition home or self-care (01) | DRG 882 ==
LOC: ED 04:58 → BSU 21:17
PROVIDERS: ADMIT Psychiatry & Neurology Psychiatry; ATTEND Psychiatry & Neurology Psychiatry
PROC: GZHZZZZ Group Psychotherapy (ICD-10-PCS; principal; 2017-12-09)
DX: F43.12 Post-traumatic stress disorder, chronic (principal); F32.9 Major depressive disorder, single episode, unspecified; F60.89 Other specific personality disorders; E66.9 Obesity, unspecified; Z68.34 Body mass index [BMI] 34.0-34.9, adult; E78.00 Pure hypercholesterolemia, unspecified; J44.9 Chronic obstructive pulmonary disease, unspecified; K21.9 Gastro-esophageal reflux disease without esophagitis; K58.0 Irritable bowel syndrome with diarrhea; N40.0 Benign prostatic hyperplasia without lower urinary tract symptoms; R62.50 Unspecified lack of expected normal physiological development in childhood; G40.909 Epilepsy, unspecified, not intractable, without status epilepticus; J45.909 Unspecified asthma, uncomplicated; F41.0 Panic disorder [episodic paroxysmal anxiety]; E03.9 Hypothyroidism, unspecified; Z90.49 Acquired absence of other specified parts of digestive tract; Z82.49 Family history of ischemic heart disease and other diseases of the circulatory system; Z82.0 Family history of epilepsy and other diseases of the nervous system; Z87.442 Personal history of urinary calculi; Z80.9 Family history of malignant neoplasm, unspecified; Z87.891 Personal history of nicotine dependence; Z91.5 Personal history of self-harm; Z91.410 Personal history of adult physical and sexual abuse
CPT/HCPCS: 36415; 80053; 80061; 80307; 80320; 80329; 81003; 81015; 83036; 83721; 84443; 85025; 87086; 90853; 93005; 99222; 99231; 99238; 99284; A9270-GY; G0480; J2405

== ENCOUNTER 2017-12-20 03:46 | Emergency (ER) | payer MEDICARE, MEDICAID ==
[2017-12-20 04:34] LABS: ABS Basophils 0.1 10^3/ul (0-0.2); ABS Eosinophils 0.1 10^3/ul (0-0.6); ABS Lymphocytes 0.9 10^3/ul (1.0-4.8); ABS Monocytes 0.6 10^3/ul (0-0.8); ABS Nucleated RBC 0 10^3/ul; Eosinophil % 2.2 % (0-6); Hematocrit 42 % (42-52); Hemoglobin 14.6 g/dl (14.0-18.0); Lymphocyte % 16.2 % (25-47); Mean Corpuscular HGB Conc 35 g/dl (31-36); Mean Corpuscular Hemoglobin 32 pg (27-31); Mean Corpuscular Volume 91 fL (80-94); Nucleated Red Blood Cells % 0; Platelet Count 234 10^3/ul (150-450); Red Blood Count 4.54 10^6/ul (4.0-5.4); Red Cell Distribution Width 13 % (10.5-15); White Blood Count 5.7 10^3/ul (3.5-10.8)
[2017-12-20 04:50] LABS: EGFR Non-African American 54.6 (>60)
[2017-12-20] MEDS ORDERED: Famotidine TAB* 20 MG PO ONE (06:32)
[2017-12-20] MEDS ORDERED: Ondansetron ODT TAB* 4 MG PO ONE (06:32)
[2017-12-20] MEDS ORDERED: Lidocaine 2% VISCOUS* 15 ML UDC PO ONE ×2 (06:33→07:59)
[2017-12-20] MEDS ORDERED: Al Hydrox/Mg Hydrox/Simet LIQ* 30 ML UDC PO ONE ×2 (06:33→07:59)
--- NOTE | 2017-12-20 07:36 | ED ---
Abdominal Pain/Male - HPI Summary HPI Summary: Patient here with lower abdominal pain since . Reports he saw his PCP this day who told him to go to the emergency department if his symptoms worsen. He has not tried anything for his abdominal pain since this started. He is seen here frequently for abdominal pain and reports the quality of symptoms is familiar however it's much worse today. He requests pain medication multiple times. Denies difficulty urinating or pain with urination as well as flank pain. No fevers, chills, URI, chest pain, shortness of breath, extremity pain. He reports he had diarrhea yesterday and had vomiting at his home this morning prior to arrival. He continues to have nausea. Last time he was here, he had similar symptoms and benefited from a course of Zofran, Pepcid and a GI cocktail. He has not tried any of these medications since new onset of symptoms. - History of Current Complaint Chief Complaint: EDAbdZackaryin Stated Complaint: ABD PAIN Time Seen by Provider: 12/20/17 05:44 Hx Obtained From: Patient Pain Intensity: 8 - Allergies/Home Medications Allergies/Adverse Reactions: Allergies Allergy/AdvReac Type Severity Reaction Status Date / Time No Known Allergies Allergy Verified 09/20/17 14:06 PMH/Surg Hx/FS Hx/Imm Hx Previously Healthy: Yes Endocrine/Hematology History: Reports: Hx Thyroid Disease, Hx Anemia Denies: Hx Anticoagulant Therapy, Hx Diabetes, Hx Systemic Lupus Erythematosus Cardiovascular History: Reports: Hx Hypercholesterolemia, Other Cardiovascular Problems/Disorders - HYPERLIPIDEMIA Denies: Hx Congestive Heart Failure, Hx Hypertension, Hx Pacemaker/ICD Respiratory History: Reports: Hx Asthma, Hx Chronic Bronchitis, Hx Chronic Obstructive Pulmonary Disease (COPD) Comment Only: Other Respiratory Problems/Disorders - Sarcoidosis GI History: Reports: Hx Gastroesophageal Reflux Disease, Hx Irritable Bowel, Hx Obstructive Bowel - Small bowel, Other GI Disorders - CYST REMOVED FROM BLADDER , LATE Denies: Hx Ulcer History: Reports: Hx Benign Prostatic Hyperplasia, Hx Kidney Stones, Hx Renal Disease - LEFT KIDNEY DECREASE IN FUNCTION, Other Problems/Disorders - HX OF CYST IN THE BLADDER Denies: Hx Dialysis Musculoskeletal History: Reports: Other Musculoskeletal History - Sarcoidosis Denies: Hx Rheumatoid Arthritis Sensory History: Reports: Hx Contacts or Glasses Denies: Hx Hearing Aid Opthamlomology History: Reports: Hx Contacts or Glasses Neurological History: Reports: Hx Developmental Delay, Hx Headaches, Hx Seizures , Other Neuro Impairments/Disorders - "light concussion" Psychiatric History: Reports: Hx Anxiety, Hx Depression, Hx Post Traumatic Stress Disorder, Hx Inpatient Treatment, Hx Community Mental Health Tx, Hx Schizophrenia, Hx Suicide Attempt, Hx of Violent Episodes Against Others, Hx Substance Abuse, Other Psychiatric Issues/Disorders Denies: Hx Eating Disorder, Hx Panic Disorder - Cancer History Hx Chemotherapy: No - Surgical History Surgery Procedure, Year, and Place: 2008 APPENDECTOMY, [facility] [place] CYST REMOVED FROM BLADDER, [facility] [place] CHOLECYSTECTOMY-12/2012 Hx Anesthesia Reactions: No - Immunization History Date of Tetanus Vaccine: Unknown Date of Influenza Vaccine: Fall 2013 Immunizations Up to Date: Yes Infectious Disease History: No Infectious Disease History: Denies: Hx Clostridium Difficile, Hx Hepatitis, Hx Human Immunodeficiency Virus (HIV), Hx of Known/Suspected MRSA, Hx Shingles, Hx Tuberculosis, Hx Known/ Suspected VRE, Hx Known/Suspected VRSA, History Other Infectious Disease, Traveled Outside the in Last 30 Days - Family History Known Family History: Positive: Cardiac Disease, Hypertension - Father, Seizure Disorder - sister, Other - cancer - Social History Occupation: Disabled Lives: [employer] Alcohol Use: None Alcohol Amount: none since 2011 Hx Substance Use: Yes Substance Use Type: Reports: None Substance Use Comment - Amount & Last Used: pt states he has not used any drugs since 2011. Hx Tobacco Use: Yes Smoking Status (MU): Former Smoker Type: Cigarettes Length of Time of Smoking/Using Tobacco: 20YRS Have You Smoked in the Last Year: No Review of Systems Constitutional: Negative Eyes: Negative ENT: Negative Cardiovascular: Negative Respiratory: Negative Gastrointestinal: Negative Positive: Abdominal Pain, Vomiting, Nausea. Negative: Diarrhea Genitourinary: Negative Negative: burning, dysuria, discharge, frequency, flank pain, hematuria, incontinence, pain, urgency Musculoskeletal: Negative Skin: Negative Neurological: Negative Positive: Anxious All Other Systems Reviewed And Are Negative: Yes Physical Exam Triage Information Reviewed: Yes Vital Signs On Initial Exam: Initial Vitals Temp Pulse Resp BP Pulse Ox 97.8 F 92 16 140/79 99 12/20/17 03:48 12/20/17 03:48 12/20/17 03:48 12/20/17 03:48 12/20/17 03:48 Vital Signs Reviewed: Yes Appearance: Positive: Well-Appearing, Pain Distress - pt reports pain however is lying comfortably on stretcher, Obese Skin: Positive: Warm, Skin Color Reflects Adequate Perfusion, Dry Head/Face: Positive: Normal Head/Face Inspection Eyes: Positive: Normal, EOMI, Conjunctiva Clear - anicteric sclera ENT: Positive: Normal ENT inspection, Hearing grossly normal, Pharynx normal - mucosa moist Neck: Positive: Supple Respiratory/Lung Sounds: Positive: Clear to Auscultation, Breath Sounds Present Cardiovascular: Positive: Normal, RRR Abdomen Description: Positive: No Organomegaly, Soft, Other: - mild lower ab TTP - no wincing, no rebounding, no gaurding Bowel Sounds: Positive: Present Musculoskeletal: Positive: Normal, Strength/ROM Intact Neurological: Positive: Normal, Sensory/Motor Intact, Alert, Oriented to Person Place, Time, CN Intact II-III Psychiatric: Positive: Anxious Diagnostics - Vital Signs Vital Signs Temp Pulse Resp BP Pulse Ox 12/20/17 03:48 97.8 F 92 16 140/79 99 - Laboratory Lab Results: Lab Results 12/20/17 12/20/17 12/20/17 Range/Units 04:10 04:10 04:10 WBC 5.7 (3.5-10.8) 10^3/ul RBC 4.54 (4.0-5.4) 10^6/ul Hgb 14.6 (14.0-18.0) g/dl Hct 42 (42-52) % MCV 91 (80-94) fL MCH 32 H (27-31) pg MCHC 35 (31-36) g/dl RDW 13 (10.5-15) % Plt Count 234 (150-450) 10^3/ul MPV 8.0 (7.4-10.4) um3 Neut % (Auto) 69.7 (38-83) % Lymph % (Auto) 16.2 L (25-47) % [place] % (Auto) 11.0 H (0-7) % Eos % (Auto) 2.2 (0-6) % Baso % (Auto) 0.9 (0-2) % Absolute Neuts (auto) 4.0 (1.5-7.7) 10^3/ul Absolute Lymphs (auto) 0.9 L (1.0-4.8) 10^3/ul Absolute Monos (auto) 0.6 (0-0.8) 10^3/ul Absolute Eos (auto) 0.1 (0-0.6) 10^3/ul Absolute Basos (auto) 0.1 (0-0.2) 10^3/ul Absolute Nucleated RBC 0 10^3/ul Nucleated RBC % 0 Sodium 137 L (139-145) mmol/L Potassium 3.9 (3.5-5.0) mmol/L Chloride 103 (101-111) mmol/L Carbon Dioxide 25 (22-32) mmol/L Anion Gap 9 (2-11) mmol/L BUN 22 (6-24) mg/dL Creatinine 1.36 H (0.67-1.17) mg/dL Est GFR ( Amer) 70.2 (>60) Est GFR (Non-Af Amer) 54.6 (>60) BUN/Creatinine Ratio 16.2 (8-20) Glucose 118 H (70-100) mg/dL Lactic Acid 1.3 (0.5-2.0) mmol/L Calcium 9.6 (8.6-10.3) mg/dL Total Bilirubin 0.40 (0.2-1.0) mg/dL AST 21 (13-39) U/L ALT 29 (7-52) U/L Alkaline Phosphatase 77 (34-104) U/L C-Reactive Protein 12.36 H (< 5.00) mg/L Total Protein 6.8 (6.4-8.9) g/dL Albumin 4.2 (3.2-5.2) g/dL Globulin 2.6 (2-4) g/dL Albumin/Globulin Ratio 1.6 (1-3) Lipase 53 (11.0-82.0) U/L Result Diagrams: 12/20/17 04:10 12/20/17 04:10 Lab Statement: Any lab studies that have been ordered have been reviewed, and results considered in the medical decision making process. Re-Evaluation - Re-Evaluation First Eval Change: Unchanged - pt reports he vomited up his meds (pepcid and GI cocktail) in the bathroom while urinating - would like to try another still has ab pain Second Eval Change: Unchanged - pt went to the bathroom after drinking 2nd GI cocktail and reports he vomited this up again - nursing reports he was not in the bathroom very long so there is a doubt that he actually vomited. He was offered crackers and a sandwich to try and he is agreeable. Third Eval Change: Improved - pt went to the bathroom again immediately after eating sandwhich and nurse listened at the door - did not hear vomiting. Another nurse reports pt spoke w/ his sister and feels better - requesting to leave. Abdominal Pain Fem Course/Dx - Course Course Of Treatment: Patient here with lower abdominal pain. Reports the same quality as it always is as he is here frequently for this complaint. He does admit pain is worse today than usual. He's not tried anything prior to arrival. He was initially given Zofran as he was reporting nausea with vomiting this morning. 30 minutes later he was given a Pepcid and GI cocktail. Patient reports he vomited these medications up in the bathroom however this was unwitnessed. He wanted to try a second round of GI cocktail and so this was given. He went to the bathroom immediately after and reported vomiting this up as well however nursing does not feel this is the case. He was offered a sandwich which she ate and did not vomit. He also spoke with his sister and asked when he could go home. His labs are unremarkable for acute pathology and abdomen is soft with positive bowel sounds. Patient is also passing gas without difficulty. He'll be discharged home with diagnosis of abdominal pain. Encouraged to try Maalox and simethicone at home if this occurs in the future. He may also request his when necessary Bentyl. If after trying these medications he continues to have symptoms, he may return to the emergency department. Also encouraged to keep a diary of symptoms in an effort to better track patterns triggering his abdominal discomfort as this may be from diet, mood, sleep habits, etc. - Diagnoses Provider Diagnoses: Abdominal pain Discharge - Sign-Out/Discharge Documenting (check all that apply): Discharge/Admit/Transfer - Discharge Plan Condition: Stable Disposition: HOME Patient Education Materials: Acute Abdominal Pain (ED) Referrals: Tran Clayton MD [Primary Care Provider] - Additional Instructions: You may continue to use a GI protectant such as Maalox along with simethicone for gas as needed. If this is not helpful, you may try your bentyl as needed for pain. If symptoms persist, you may benefit from a GI consult. Keep a diary of diet ( foods, beverages, etc), along with fluid intake, stress, sleep habits, and bowel habits to see if a pattern is observed as you present here frequently with abdominal pain without acute pathology on an emergent basis. Staff can help you with this. You may also review your medications with your PCP to see if any of the medications you are taking are contributing to your symptoms. *If you develop fever, chills, intractable vomiting or diarrhea, intractable abdominal pain despite recommendations made here today, inability to urinate or move bowels, return to the ED - Billing Disposition and Condition Condition: STABLE Disposition: HOME
[2017-12-20] MEDS ORDERED: Sucralfate TAB* 1 GM PO ONE (07:43)
[2017-12-20 08:02] LABS: Urine Appearance Cloudy; Urine Blood Negative (Negative); Urine Color Yellow; Urine Ketones Negative (Negative); Urine Protein Negative (Negative); Urine Specific Gravity 1.018 (1.010-1.030); Urine Urobilinogen Negative (Negative)
[2017-12-20 09:17] VITALS: BP 146/97
== END 2017-12-20 09:17 | disposition home or self-care (01) ==
LOC: ED 03:46
DX: R10.30 Lower abdominal pain, unspecified (principal)
CPT/HCPCS: 36415; 80053; 81003; 83605; 83690; 85025; 86140; 99283; A9270-GY

== ENCOUNTER 2018-01-14 10:27 | Inpatient (IN) | payer MEDICARE, MEDICAID ==
[2018-01-14] MEDS ORDERED: Prochlorperazine TAB* 5 MG PO ONE (11:16)
[2018-01-14 11:18] LABS: ABS Basophils 0.1 10^3/ul (0-0.2); ABS Eosinophils 0 10^3/ul (0-0.6); ABS Lymphocytes 0.7 10^3/ul (1.0-4.8); ABS Monocytes 0.5 10^3/ul (0-0.8); ABS Neutrophils 7.5 10^3/ul (1.5-7.7); ABS Nucleated RBC 0 10^3/ul; Eosinophil % 0.3 % (0-6); Hematocrit 47 % (42-52); Hemoglobin 16.1 g/dl (14.0-18.0); Lymphocyte % 8.4 % (25-47); Mean Corpuscular HGB Conc 35 g/dl (31-36); Mean Corpuscular Hemoglobin 31 pg (27-31); Mean Corpuscular Volume 91 fL (80-94); Mean Platelet Volume 7.7 um3 (7.4-10.4); Nucleated Red Blood Cells % 0.1; Platelet Count 287 10^3/ul (150-450); Red Blood Count 5.15 10^6/ul (4.0-5.4); Red Cell Distribution Width 13 % (10.5-15); White Blood Count 8.9 10^3/ul (3.5-10.8)
[2018-01-14 11:46] LABS: EGFR Non-African American 61.9 (>60)
[2018-01-14] MEDS ORDERED: NS 0.9% 1000 ML* 1,000 ML IV ONE (11:48)
--- NOTE | 2018-01-14 11:51 | RAD ---
INDICATION: Abdominal pain. COMPARISON: Comparison is made with a prior study from November 30, 2017. TECHNIQUE: Supine and upright views of the abdomen were obtained. FINDINGS: The small bowel and colon appear nondistended. No free intraperitoneal air is seen. There are several surgical clips in the right upper quadrant consistent with a prior cholecystectomy. There are also surgical clips which project over the pelvis on the left side. IMPRESSION: NO EVIDENCE FOR OBSTRUCTION.
[2018-01-14] MEDS ORDERED: Lidocaine 2% VISCOUS* 15 ML UDC PO ONE (13:48)
[2018-01-14] MEDS ORDERED: Al Hydrox/Mg Hydrox/Simet LIQ* 30 ML UDC PO ONE (13:48)
[2018-01-14 13:58] LABS: Urine Appearance Cloudy; Urine Blood Negative (Negative); Urine Color Yellow; Urine Ketones Trace (Negative); Urine Protein 1+(30 mg/dL) (Negative); Urine Specific Gravity 1.021 (1.010-1.030); Urine Urobilinogen Negative (Negative)
--- NOTE | 2018-01-14 21:02 | ED ---
Radha John Elizabeth, scribed for Antolin Dunham MD on 01/14/18 at 1206 . Psychiatric Complaint - HPI Summary HPI Summary: This patient is a 52 year old M presenting to [facility] with a chief complaint of SI with a plan since 1 day ago. The patient notes that his mother recently . Symptoms aggravated by recent stress. Symptoms alleviated by nothing. Patient reports epigastric pain and nausea. - History Of Current Complaint Chief Complaint: EDMentalHealth Time Seen by Provider: 01/14/18 10:47 Hx Obtained From: Patient Onset/Duration: Gradual Onset, Lasting Hours, Still Present Timing: Constant Severity Initially: Mild Severity Currently: Mild Character: Depressed Aggravating Factor(s): Recent Stress - mother Alleviating Factor(s): Nothing Related History: Positive For: Prior Psychiatric Issues Has Suicidal: Reports: Thoughts, With A Plan - Allergies/Home Medications Allergies/Adverse Reactions: Allergies Allergy/AdvReac Type Severity Reaction Status Date / Time No Known Allergies Allergy Verified 01/14/18 10:32 PMH/Surg Hx/FS Hx/Imm Hx Endocrine/Hematology History: Reports: Hx Thyroid Disease, Hx Anemia Denies: Hx Anticoagulant Therapy, Hx Diabetes, Hx Systemic Lupus Erythematosus Cardiovascular History: Reports: Hx Hypercholesterolemia, Other Cardiovascular Problems/Disorders - HYPERLIPIDEMIA Denies: Hx Congestive Heart Failure, Hx Hypertension, Hx Pacemaker/ICD Respiratory History: Reports: Hx Asthma, Hx Chronic Bronchitis, Hx Chronic Obstructive Pulmonary Disease (COPD) Comment Only: Other Respiratory Problems/Disorders - Sarcoidosis GI History: Reports: Hx Gastroesophageal Reflux Disease, Hx Irritable Bowel, Hx Obstructive Bowel - Small bowel, Other GI Disorders - CYST REMOVED FROM BLADDER , LATE Denies: Hx Ulcer History: Reports: Hx Benign Prostatic Hyperplasia, Hx Kidney Stones, Hx Renal Disease - LEFT KIDNEY DECREASE IN FUNCTION, Other Problems/Disorders - HX OF CYST IN THE BLADDER Denies: Hx Dialysis Musculoskeletal History: Reports: Other Musculoskeletal History - Sarcoidosis Denies: Hx Rheumatoid Arthritis Sensory History: Reports: Hx Contacts or Glasses Denies: Hx Hearing Aid Opthamlomology History: Reports: Hx Contacts or Glasses Neurological History: Reports: Hx Developmental Delay, Hx Headaches, Hx Seizures , Other Neuro Impairments/Disorders - "light concussion" Psychiatric History: Reports: Hx Anxiety, Hx Depression, Hx Post Traumatic Stress Disorder, Hx Inpatient Treatment, Hx Community Mental Health Tx, Hx Schizophrenia, Hx Suicide Attempt, Hx of Violent Episodes Against Others, Hx Substance Abuse, Other Psychiatric Issues/Disorders Denies: Hx Eating Disorder, Hx Panic Disorder - Cancer History Hx Chemotherapy: No - Surgical History Surgery Procedure, Year, and Place: 2009 APPEN[place]OM[place], [facility] [place] FROM [place]DER, [facility] [place]12/[place] Hx Anesthesia Reactions: No - Immunization History Date of Tetanus Vaccine: Unknown Date of Influenza Vaccine: Fall 2013 Infectious Disease History: No Infectious Disease History: Denies: Hx Clostridium Difficile, Hx Hepatitis, Hx Human Immunodeficiency Virus (HIV), Hx of Known/Suspected MRSA, Hx Shingles, Hx Tuberculosis, Hx Known/ Suspected VRE, Hx Known/Suspected VRSA, History Other Infectious Disease, Traveled Outside the [place] in Last 30 Days - Family History Known Family History: Positive: Cardiac Disease, Hypertension - Father, Seizure Disorder - sister, Other - cancer - Social History Alcohol Use: None Alcohol Amount: none since 2011 Hx Substance Use: Yes Substance Use Type: Reports: None Substance Use Comment - Amount & Last Used: pt states he has not used any drugs since 2011. Hx Tobacco Use: Yes Smoking Status (MU): Former Smoker Type: Cigarettes Length of Time of Smoking/Using Tobacco: 20YRS Have You Smoked in the Last Year: No Review of Systems Negative: Fever Negative: Epistaxis Negative: Shortness Of Breath Positive: Abdominal Pain - epigastric pain, Nausea Positive: Depressed, Other - SI with a plan All Other Systems Reviewed And Are Negative: Yes Physical Exam - Summary Physical Exam Summary: VITAL SIGNS: Reviewed. GENERAL: Patient is a well-developed and nourished MALE who is lying comfortable in the stretcher. Patient is not in any acute respiratory distress. HEAD AND FACE: No signs of trauma. No ecchymosis, hematomas or skull depressions. No sinus tenderness. EYES: PERRLA, EOMI x 2, No injected conjunctiva, no nystagmus. EARS: Hearing grossly intact. Ear canals and tympanic membranes are within normal limits. MOUTH: Oropharynx within normal limits. NECK: Supple, trachea is midline, no adenopathy, no JVD, no carotid bruit, no c- spine tenderness, neck with full ROM. CHEST: Symmetric, no tenderness at palpation LUNGS: Clear to auscultation bilaterally. No wheezing or crackles. CVS: Regular rate and rhythm, S1 and S2 present, no murmurs or gallops appreciated. ABDOMEN: Soft, non-tender. No signs of distention. No rebound no guarding, and no masses palpated. Bowel sounds are normal. EXTREMITIES: FROM in all major joints, no edema, no cyanosis or clubbing. NEURO: Alert and oriented x 3. No acute neurological deficits. Speech is normal and follows commands. SKIN: Dry and warm Triage Information Reviewed: Yes Vital Signs On Initial Exam: Initial Vitals Temp Pulse Resp BP Pulse Ox 97.2 F 84 18 154/95 96 01/14/18 10:29 01/14/18 10:29 01/14/18 10:29 01/14/18 10:29 01/14/18 10:29 Vital Signs Reviewed: Yes Diagnostics - Vital Signs Vital Signs Temp Pulse Resp BP Pulse Ox 01/14/18 10:29 97.2 F 84 18 154/95 96 - Laboratory Lab Results: Lab Results 01/14/18 01/14/18 Range/Units 11:05 11:05 WBC 8.9 (3.5-10.8) 10^3/ul RBC 5.15 (4.0-5.4) 10^6/ul Hgb 16.1 (14.0-18.0) g/dl Hct 47 (42-52) % MCV 91 (80-94) fL MCH 31 (27-31) pg MCHC 35 (31-36) g/dl RDW 13 (10.5-15) % Plt Count 287 (150-450) 10^3/ul MPV 7.7 (7.4-10.4) um3 Neut % (Auto) 84.9 H (38-83) % Lymph % (Auto) 8.4 L (25-47) % [place] % (Auto) 5.8 (0-7) % Eos % (Auto) 0.3 (0-6) % Baso % (Auto) 0.6 (0-2) % Absolute Neuts (auto) 7.5 (1.5-7.7) 10^3/ul Absolute Lymphs (auto) 0.7 L (1.0-4.8) 10^3/ul Absolute Monos (auto) 0.5 (0-0.8) 10^3/ul Absolute Eos (auto) 0 (0-0.6) 10^3/ul Absolute Basos (auto) 0.1 (0-0.2) 10^3/ul Absolute Nucleated RBC 0 10^3/ul Nucleated RBC % 0.1 Sodium 140 (139-145) mmol/L Potassium 4.1 (3.5-5.0) mmol/L Chloride 106 (101-111) mmol/L Carbon Dioxide 24 (22-32) mmol/L Anion Gap 10 (2-11) mmol/L BUN 26 H (6-24) mg/dL Creatinine 1.22 H (0.67-1.17) mg/dL Est GFR ( Amer) 79.6 (>60) Est GFR (Non-Af Amer) 61.9 (>60) BUN/Creatinine Ratio 21.3 H (8-20) Glucose 121 H (70-100) mg/dL Calcium 10.6 H (8.6-10.3) mg/dL Total Bilirubin 0.50 (0.2-1.0) mg/dL AST 20 (13-39) U/L ALT 24 (7-52) U/L Alkaline Phosphatase 99 (34-104) U/L Total Protein 7.4 (6.4-8.9) g/dL Albumin 4.7 (3.2-5.2) g/dL Globulin 2.7 (2-4) g/dL Albumin/Globulin Ratio 1.7 (1-3) TSH 2.27 (0.34-5.60) mcIU/mL Salicylates < 2.50 (<30) mg/dL Acetaminophen < 15 mcg/mL Serum Alcohol < 10 (<10) mg/dL Result Diagrams: 01/14/18 11:05 01/14/18 11:05 Lab Statement: Any lab studies that have been ordered have been reviewed, and results considered in the medical decision making process. Course/Dx - Course Assessment/Plan: This patient is a 52-year-old male who presents to the emergency department with a chief complaint of having suicidal thoughts without a plan. He also reported that he has intermittent abdominal pain and nausea. He has no other complaints. [facility] results without any significant abnormality except for chronic renal insufficiency with a BUN 26, and creatinine of 1.22. Glucose is 121. Calcium is 10.6. For the patients hypercalcemia the patient was given IV fluids. For nausea he was given Compazine. Abdominal X ray impression: No evidence for obstruction. He is medically cleared. He is awaiting for a MHE. Patient is hemodynamically stable and A+O x 3. Patient was seen by Dr. Lucas and he recommends admission to his services. - Differential Dx/Clinical Impression Differential Diagnosis/HQI/PQRI: Positive: Depression, Suicidal Ideation Provider Diagnosis: PTSD (post-traumatic stress disorder) Discharge - Sign-Out/Discharge Documenting (check all that apply): Discharge/Admit/Transfer - Discharge Plan Condition: Stable [facility] [facility] [place] Referrals: Tran Clayton MD [Primary Care Provider] - - Billing Disposition and Condition Condition: STABLE [facility]position: [facility] [place] The documentation as recorded by the Radha farah Elizabeth accurately reflects the service I personally performed and the decisions made by Roly bishop Walter, MD.
[2018-01-14] MEDS ORDERED: Acetaminophen TAB* 325 MG PO PRN (21:59)
[2018-01-14] MEDS ORDERED: Albuterol HFA INHALER* 8 gm MDI INH PRN (22:04)
[2018-01-14] MEDS: Dicyclomine CAP* 10 MG PO PRN (22:27)
[2018-01-14] MEDS: cloNIDine TAB* 0.1 MG PO SCH (22:28)
[2018-01-14] MEDS: QUEtiapine TAB* 25 MG PO PRN (22:29)
[2018-01-14] MEDS: Ziprasidone * 20 MG CAP (generic Geodon) PO SCH (22:29)
[2018-01-14] MEDS: Zolpidem TAB* 5 MG PO PRN (22:30)
[2018-01-14] MEDS: Al Hydrox/Mg Hydrox/Simet LIQ* 30 ML UDC PO PRN (22:30)
[2018-01-15] MEDS: Levothyroxine TAB* 50 MCG TAB PO SCH (08:34)
[2018-01-15] MEDS: Cetirizine* 10 MG TAB PO SCH (08:37)
[2018-01-15] MEDS: Topiramate TAB(*) 100 MG PO SCH (08:37)
[2018-01-15] MEDS: Vitamin THERAPEUTIC TAB PO SCH (08:37)
[2018-01-15] MEDS: Tamsulosin CAP* 0.4 MG PO SCH (08:38)
[2018-01-15] MEDS: Famotidine TAB* 20 MG PO SCH (08:38)
[2018-01-15] MEDS: Ziprasidone * 20 MG CAP (generic Geodon) PO SCH ×2 (08:38→21:43)
[2018-01-15] MEDS: Omeprazole CAP* 20 MG PO SCH (08:38)
[2018-01-15] MEDS ORDERED: DULoxetine DR CAP* 60 MG CAP.DR PO SCH (09:00)
[2018-01-15] MEDS: QUEtiapine TAB* 25 MG PO PRN (15:32)
[2018-01-15] MEDS: cloNIDine TAB* 0.1 MG PO SCH (21:42)
[2018-01-15] MEDS: Atorvastatin* 20 MG TAB PO SCH (21:42)
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
[2018-01-16] MEDS: Al Hydrox/Mg Hydrox/Simet LIQ* 30 ML UDC PO PRN (06:50)
[2018-01-16] MEDS: Levothyroxine TAB* 50 MCG TAB PO SCH (09:21)
[2018-01-16] MEDS: Famotidine TAB* 20 MG PO SCH (09:22)
[2018-01-16] MEDS: Cetirizine* 10 MG TAB PO SCH (09:22)
[2018-01-16] MEDS: Vitamin THERAPEUTIC TAB PO SCH (09:22)
[2018-01-16] MEDS: DULoxetine DR CAP* 30 MG CAP.DR PO SCH (09:22)
[2018-01-16] MEDS: Topiramate TAB(*) 100 MG PO SCH (09:22)
[2018-01-16] MEDS: Omeprazole CAP* 20 MG PO SCH (09:23)
[2018-01-16] MEDS: Ziprasidone * 20 MG CAP (generic Geodon) PO SCH ×2 (09:23→21:01)
[2018-01-16] MEDS: Tamsulosin CAP* 0.4 MG PO SCH (09:23)
[2018-01-16] MEDS: Atorvastatin* 20 MG TAB PO SCH (21:01)
[2018-01-16] MEDS: cloNIDine TAB* 0.1 MG PO SCH (21:01)
[2018-01-17] MEDS: Vitamin THERAPEUTIC TAB PO SCH (08:46)
[2018-01-17] MEDS: Cetirizine* 10 MG TAB PO SCH (08:46)
[2018-01-17] MEDS: DULoxetine DR CAP* 30 MG CAP.DR PO SCH (08:46)
[2018-01-17] MEDS: Topiramate TAB(*) 100 MG PO SCH (08:46)
[2018-01-17] MEDS: Tamsulosin CAP* 0.4 MG PO SCH (08:46)
[2018-01-17] MEDS: Omeprazole CAP* 20 MG PO SCH (08:47)
[2018-01-17] MEDS: Levothyroxine TAB* 50 MCG TAB PO SCH (08:47)
[2018-01-17] MEDS: Famotidine TAB* 20 MG PO SCH (08:47)
[2018-01-17] MEDS: Ziprasidone * 20 MG CAP (generic Geodon) PO SCH ×2 (08:47→20:42)
[2018-01-17] MEDS: Atorvastatin* 20 MG TAB PO SCH (20:42)
[2018-01-17] MEDS: cloNIDine TAB* 0.1 MG PO SCH (20:42)
[2018-01-17] MEDS: Al Hydrox/Mg Hydrox/Simet LIQ* 30 ML UDC PO PRN (22:45)
[2018-01-18] MEDS: Levothyroxine TAB* 50 MCG TAB PO SCH (06:05)
[2018-01-18] MEDS: Omeprazole CAP* 20 MG PO SCH (07:21)
[2018-01-18] MEDS: DULoxetine DR CAP* 30 MG CAP.DR PO SCH (09:11)
[2018-01-18] MEDS: Cetirizine* 10 MG TAB PO SCH (09:12)
[2018-01-18] MEDS: Topiramate TAB(*) 100 MG PO SCH (09:12)
[2018-01-18] MEDS: Ziprasidone * 20 MG CAP (generic Geodon) PO SCH ×2 (09:12→20:39)
[2018-01-18] MEDS: Vitamin THERAPEUTIC TAB PO SCH (09:12)
[2018-01-18] MEDS: Tamsulosin CAP* 0.4 MG PO SCH (09:13)
[2018-01-18] MEDS: Famotidine TAB* 20 MG PO SCH (09:13)
--- NOTE | 2018-01-18 11:50 | PN ---
MHU: Group Therapy Note - Service Type Service Type: 51181 Group Psychotherapy - Cognitive Behavioral Group Therapy ( CBT):Patient was attentive and participatory in CBT programming this morning, and remained in good behavioral control. Patient expressed positive insights regarding relevant treatment interventions and goals.
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
[2018-01-18] MEDS: QUEtiapine TAB* 25 MG PO PRN (15:02)
[2018-01-18] MEDS: cloNIDine TAB* 0.1 MG PO SCH (20:39)
[2018-01-18] MEDS: Atorvastatin* 20 MG TAB PO SCH (20:39)
[2018-01-19] MEDS: Levothyroxine TAB* 50 MCG TAB PO SCH (06:30)
[2018-01-19] MEDS: Ziprasidone * 20 MG CAP (generic Geodon) PO SCH ×2 (08:57→21:04)
[2018-01-19] MEDS: Vitamin THERAPEUTIC TAB PO SCH (08:58)
[2018-01-19] MEDS: DULoxetine DR CAP* 30 MG CAP.DR PO SCH (08:58)
[2018-01-19] MEDS: Cetirizine* 10 MG TAB PO SCH (08:59)
[2018-01-19] MEDS: Topiramate TAB(*) 100 MG PO SCH (08:59)
[2018-01-19] MEDS: Famotidine TAB* 20 MG PO SCH (08:59)
[2018-01-19] MEDS: Tamsulosin CAP* 0.4 MG PO SCH (08:59)
[2018-01-19] MEDS: Omeprazole CAP* 20 MG PO SCH (09:00)
[2018-01-19] MEDS: cloNIDine TAB* 0.1 MG PO SCH (21:02)
[2018-01-19] MEDS: Atorvastatin* 20 MG TAB PO SCH (21:02)
[2018-01-20] MEDS: Al Hydrox/Mg Hydrox/Simet LIQ* 30 ML UDC PO PRN ×2 (00:55→21:12)
[2018-01-20] MEDS: Zolpidem TAB* 5 MG PO PRN (00:55)
[2018-01-20] MEDS: Cetirizine* 10 MG TAB PO SCH (08:14)
[2018-01-20] MEDS: Topiramate TAB(*) 100 MG PO SCH (08:14)
[2018-01-20] MEDS: Ziprasidone * 20 MG CAP (generic Geodon) PO SCH ×2 (08:14→21:15)
[2018-01-20] MEDS: Tamsulosin CAP* 0.4 MG PO SCH (08:15)
[2018-01-20] MEDS: Levothyroxine TAB* 50 MCG TAB PO SCH (08:15)
[2018-01-20] MEDS: DULoxetine DR CAP* 30 MG CAP.DR PO SCH (08:15)
[2018-01-20] MEDS: Omeprazole CAP* 20 MG PO SCH (08:15)
[2018-01-20] MEDS: Famotidine TAB* 20 MG PO SCH (08:15)
[2018-01-20] MEDS: Vitamin THERAPEUTIC TAB PO SCH (08:15)
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
[2018-01-20] MEDS: Atorvastatin* 20 MG TAB PO SCH (21:13)
[2018-01-20] MEDS: cloNIDine TAB* 0.1 MG PO SCH (21:14)
[2018-01-21] MEDS: Omeprazole CAP* 20 MG PO SCH (08:20)
[2018-01-21] MEDS: DULoxetine DR CAP* 30 MG CAP.DR PO SCH (08:20)
[2018-01-21] MEDS: Famotidine TAB* 20 MG PO SCH (08:20)
[2018-01-21] MEDS: Cetirizine* 10 MG TAB PO SCH (08:20)
[2018-01-21] MEDS: Levothyroxine TAB* 50 MCG TAB PO SCH (08:20)
[2018-01-21] MEDS: Vitamin THERAPEUTIC TAB PO SCH (08:21)
[2018-01-21] MEDS: Ziprasidone * 20 MG CAP (generic Geodon) PO SCH ×2 (08:21→20:36)
[2018-01-21] MEDS: Tamsulosin CAP* 0.4 MG PO SCH (08:21)
[2018-01-21] MEDS: Topiramate TAB(*) 100 MG PO SCH (08:21)
[2018-01-21] MEDS: Al Hydrox/Mg Hydrox/Simet LIQ* 30 ML UDC PO PRN ×2 (10:49→22:43)
--- NOTE | 2018-01-21 16:22 | PN ---
MHU: Group Therapy Note - Service Type Service Type: [id number] Group Psychotherapy - Medication Education Group: Patient attended group and presented with flat affect that did not vary with discussion. Although responsive to direct prompts to respond to questions, patient did not engage in spontaneous conversation.
[2018-01-21] MEDS: Atorvastatin* 20 MG TAB PO SCH (20:37)
[2018-01-21] MEDS: Prazosin CAP* 1 MG PO SCH (20:37)
[2018-01-22] MEDS: Zolpidem TAB* 5 MG PO PRN ×2 (00:24→22:51)
[2018-01-22] MEDS: Levothyroxine TAB* 50 MCG TAB PO SCH (05:44)
[2018-01-22] MEDS: Ziprasidone * 20 MG CAP (generic Geodon) PO SCH ×2 (08:45→20:11)
[2018-01-22] MEDS: Topiramate TAB(*) 100 MG PO SCH (08:45)
[2018-01-22] MEDS: DULoxetine DR CAP* 30 MG CAP.DR PO SCH (08:45)
[2018-01-22] MEDS: Omeprazole CAP* 20 MG PO SCH (08:46)
[2018-01-22] MEDS: Tamsulosin CAP* 0.4 MG PO SCH (08:46)
[2018-01-22] MEDS: Vitamin THERAPEUTIC TAB PO SCH (08:46)
[2018-01-22] MEDS: Cetirizine* 10 MG TAB PO SCH (08:46)
[2018-01-22] MEDS: Famotidine TAB* 20 MG PO SCH (08:47)
[2018-01-22] MEDS: Al Hydrox/Mg Hydrox/Simet LIQ* 30 ML UDC PO PRN ×2 (09:50→20:07)
--- NOTE | 2018-01-22 16:51 | PN ---
Subjective - Subjective Date of Service: 01/22/18 Service Type: 61263 Hosp care 25 min moderate complexity Subjective: Patient attended his mother's service with staff accompanying him. He expresses much gratitude and states that the service was "hard." We discuss his mother's attributes and things she has taught him. Patient inquired about referral to [facility]. Insulation Blower asked how he feels about it and Sonia stated "I don't know what I need right now." Insulation Blower validated and gave him a DBT decisional balance worksheet to complete over the weekend. Objective - Appearance Appearance: Obese Dysmorphic Features: Yes Hygiene: Normal Grooming: Well Kept - Behavior Psychomotor Activities: Normal Exhibits Abnormal Movement: No - Attitude and Relatedness Attitude and Relatedness: Cooperative Eye Contact: Fair - Speech Quality: Unpressured Latencies: Normal Quantity: Terse - Mood Patient's Decription of Mood: "Sad" - Affect Observed Affect: Depressed Affect Consistent with: Dysphoria - Thought Process Patient's Thought Process: Impoverished Thought Content: No Passive Wish, No Suicidal Planning, No Homicidal Ideation, No Paranoid Ideation - Sensorium Experiencing Hallucinations: No, Sensorium is Clear Type of Hallucinations: Visual: No, Auditory: Yes, Command: No - Level of Consciousness Level of Consciousness: Alert Orientation: Yes Intact, Yes Orientated to Time, Yes Orientated to Place, Yes Orientated to Person - Impulse Control Impulse Control: Tenuous - Insight and Judgement Insight and Judgement: Poor - Group Participation Particating in Group Activities: Yes - Medication Management Medication Management Adherence: Yes Assessment - Assessment Merits Inpatient Hospitalization: For Immediate Safety, For Stabilization, For Ongoing Evaluation Inpatient DSM-V Dx: F43.12 Clinical Impression: 52yo white male with extensive history of trauma into his 30's. He presented to the ED with c/o increased depression and command hallucinations to harm himself. Patient has been hospitalized three times this year due to decline in functioning. He merits continued hospitalization for immediate safety and stabilization; will consider referral to [facility]. Plan - Plan Treatment Plan: Name: SONIA MONDRAGON Birthdate: 1965 [id number] continue acute intensive psychiatric treatment. continue q30min observation and allow staff pass. attempt to decrease polypharmacy. consider referral to [facility]. Continued Medication Management: Different Medication Medications: Current Medications Acetaminophen (Tylenol Tab*) 650 mg PO Q4H PRN PRN Reason: PAIN or TEMP > 101 F Al Hydrox/Mg Hydrox/Simethicone (Maalox Plus*) 30 ml PO Q4H PRN PRN Reason: INDIGESTION Last Admin: 01/22/18 09:50 Dose: 30 ml Albuterol (Ventolin Hfa Inhaler*) 2 puff INH Q4H PRN PRN Reason: SOB/WHEEZING Atorvastatin Calcium (Lipitor*) 20 mg PO 2100 [facility] Last Admin: 01/21/18 20:37 Dose: 20 mg Cetirizine HCl (Zyrtec*) 10 mg PO DAILY [facility] Last Admin: 01/22/18 08:46 Dose: 10 mg Dicyclomine HCl (Bentyl Cap*) 20 mg PO QID PRN PRN Reason: DIARRHEA Last Admin: 01/14/18 22:27 Dose: 20 mg Duloxetine HCl (Cymbalta Cap*) 90 mg PO DAILY [facility] Last Admin: 01/22/18 08:45 Dose: 90 mg Famotidine (Pepcid Tab*) 20 mg PO DAILY [facility] Last Admin: 01/22/18 08:47 Dose: 20 mg Hydroxyzine HCl (Atarax Tab*) 50 mg PO BID PRN PRN Reason: ANXIETY Levothyroxine Sodium (Synthroid Tab*) 50 mcg PO 0600 [facility] Last Admin: 01/22/18 05:44 Dose: 50 mcg Multivitamins (Theragran Tab*) 1 tab PO DAILY [facility] Last Admin: 01/22/18 08:46 Dose: 1 tab Omeprazole (Prilosec Cap*) 20 mg PO 0730 [facility] Last Admin: 01/22/18 08:46 Dose: 20 mg Prazosin HCl (Minipress Cap*) 2 mg PO BEDTIME [facility] Last Admin: 01/21/18 20:37 Dose: 2 mg Tamsulosin HCl (Flomax Cap*) 0.4 mg PO DAILY [facility] Last Admin: 01/22/18 08:46 Dose: 0.4 mg Topiramate (Topamax(*)) 100 mg PO DAILY [facility] Last Admin: 01/22/18 08:45 Dose: 100 mg Ziprasidone (Geodon (Generic) *) 80 mg PO BID [facility] Last Admin: 01/22/18 08:45 Dose: 80 mg Zolpidem Tartrate (Ambien Tab*) 5 mg PO BEDTIME PRN PRN Reason: INSOMNIA Last Admin: 01/22/18 00:24 Dose: 5 mg - Discharge Plan Discharge Plan: Consider Longer Term Tx
[2018-01-22] MEDS: Atorvastatin* 20 MG TAB PO SCH (20:08)
[2018-01-22] MEDS: Prazosin CAP* 1 MG PO SCH (20:11)
[2018-01-23] MEDS: Tamsulosin CAP* 0.4 MG PO SCH (09:15)
[2018-01-23] MEDS: Omeprazole CAP* 20 MG PO SCH (09:15)
[2018-01-23] MEDS: DULoxetine DR CAP* 30 MG CAP.DR PO SCH (09:15)
[2018-01-23] MEDS: Levothyroxine TAB* 50 MCG TAB PO SCH (09:16)
[2018-01-23] MEDS: Cetirizine* 10 MG TAB PO SCH (09:16)
[2018-01-23] MEDS: hydrOXYzine HCL TAB* 50 MG PO PRN (09:16)
[2018-01-23] MEDS: Ziprasidone * 20 MG CAP (generic Geodon) PO SCH ×2 (09:16→19:43)
[2018-01-23] MEDS: Famotidine TAB* 20 MG PO SCH (09:17)
[2018-01-23] MEDS: Topiramate TAB(*) 100 MG PO SCH (09:17)
[2018-01-23] MEDS: Vitamin THERAPEUTIC TAB PO SCH (09:17)
[2018-01-23] MEDS: Al Hydrox/Mg Hydrox/Simet LIQ* 30 ML UDC PO PRN ×2 (10:52→19:43)
[2018-01-23] MEDS: Prazosin CAP* 1 MG PO SCH (19:43)
[2018-01-23] MEDS: Atorvastatin* 20 MG TAB PO SCH (19:43)
[2018-01-24] MEDS: Levothyroxine TAB* 50 MCG TAB PO SCH (06:00)
[2018-01-24] MEDS: Omeprazole CAP* 20 MG PO SCH (08:41)
[2018-01-24] MEDS: DULoxetine DR CAP* 30 MG CAP.DR PO SCH (08:41)
[2018-01-24] MEDS: Famotidine TAB* 20 MG PO SCH (08:41)
[2018-01-24] MEDS: Cetirizine* 10 MG TAB PO SCH (08:42)
[2018-01-24] MEDS: Ziprasidone * 20 MG CAP (generic Geodon) PO SCH ×2 (08:42→21:26)
[2018-01-24] MEDS: Tamsulosin CAP* 0.4 MG PO SCH (08:42)
[2018-01-24] MEDS: Topiramate TAB(*) 100 MG PO SCH (08:42)
[2018-01-24] MEDS: hydrOXYzine HCL TAB* 50 MG PO PRN (08:43)
[2018-01-24] MEDS: Vitamin THERAPEUTIC TAB PO SCH (08:43)
[2018-01-24] MEDS: Al Hydrox/Mg Hydrox/Simet LIQ* 30 ML UDC PO PRN ×2 (18:45)
[2018-01-24] MEDS: Prazosin CAP* 1 MG PO SCH (21:26)
[2018-01-24] MEDS: Atorvastatin* 20 MG TAB PO SCH (21:27)
[2018-01-24] MEDS: Zolpidem TAB* 5 MG PO PRN ×2 (21:29)
[2018-01-25] MEDS: Levothyroxine TAB* 50 MCG TAB PO SCH (06:05)
[2018-01-25] MEDS: DULoxetine DR CAP* 30 MG CAP.DR PO SCH (09:02)
[2018-01-25] MEDS: Ziprasidone * 20 MG CAP (generic Geodon) PO SCH ×2 (09:03→20:05)
[2018-01-25] MEDS: Famotidine TAB* 20 MG PO SCH (09:04)
[2018-01-25] MEDS: Omeprazole CAP* 20 MG PO SCH (09:04)
[2018-01-25] MEDS: Cetirizine* 10 MG TAB PO SCH (09:04)
[2018-01-25] MEDS: Tamsulosin CAP* 0.4 MG PO SCH (09:05)
[2018-01-25] MEDS: Vitamin THERAPEUTIC TAB PO SCH (09:05)
[2018-01-25] MEDS: Topiramate TAB(*) 100 MG PO SCH (09:06)
[2018-01-25] MEDS: hydrOXYzine HCL TAB* 50 MG PO PRN ×2 (09:06→23:40)
[2018-01-25] MEDS: Al Hydrox/Mg Hydrox/Simet LIQ* 30 ML UDC PO PRN ×3 (09:06→23:40)
--- NOTE | 2018-01-25 11:31 | PN ---
Subjective - Subjective Date of Service: 01/25/18 Service Type: 62121 Hosp care 15 min low complexity Subjective: Sonia is seen in coverage for nurse practitioner Ivette Yin. I see him along with HERIBERTO Salazar. Sonia admits to us that his mother's service on Thursday was very emotional and difficult and that he remains vulnerable. We discuss referral to the [facility] system and he is in agreement. He denies SI today. He is tolerating his medications well. He is somatic, c/o abdominal pain. Objective - Appearance Appearance: Well Developed/Nourished Dysmorphic Features: No Hygiene: Normal Grooming: Well Kept - Behavior Psychomotor Activities: Normal Exhibits Abnormal Movement: No - Attitude and Relatedness Attitude and Relatedness: Cooperative Eye Contact: Fair - Speech Quality: Unpressured Latencies: Long Quantity: Terse - Mood Patient's Decription of Mood: "Sad" - Affect Observed Affect: Constricted Affect Consistent with: Dysphoria - Thought Process Patient's Thought Process: Coherent Thought Content: No Passive Wish, No Suicidal Planning, No Homicidal Ideation, No Paranoid Ideation - Sensorium Experiencing Hallucinations: No, Sensorium is Clear Type of Hallucinations: Visual: No, Auditory: No, Command: No - Level of Consciousness Level of Consciousness: Alert Orientation: Yes Intact, Yes Orientated to Time, Yes Orientated to Place, Yes Orientated to Person - Impulse Control Impulse Control: Poor - Insight and Judgement Insight and Judgement: Impaired - Group Participation Particating in Group Activities: No - Medication Management Medication Management Adherence: Yes Assessment - Assessment Merits Inpatient Hospitalization: For Immediate Safety, For Stabilization Inpatient DSM-V Dx: F43.12 Clinical Impression: 52 y.o. single, white, mentally disabled male with a history of severe PTSD and multiple previous mental health inpatient admissions presents with SI and AH. Plan - Plan Treatment Plan: Name: SONIA MONDRAGON Birthdate: 1965 [id number] The patient is on a regimen of duloxetine, ziprasidone, zolpidem, topiramate prazosin and prn hydroxyzine. We will refer him back to the [facility]. Continued Medication Management: Different Medication Medications: Current Medications Acetaminophen (Tylenol Tab*) 650 mg PO Q4H PRN PRN Reason: PAIN or TEMP > 101 F Al Hydrox/Mg Hydrox/Simethicone (Maalox Plus*) 30 ml PO Q4H PRN PRN Reason: INDIGESTION Last Admin: 01/25/18 09:06 Dose: 30 ml Albuterol (Ventolin Hfa Inhaler*) 2 puff INH Q4H PRN PRN Reason: SOB/WHEEZING Atorvastatin Calcium (Lipitor*) 20 mg PO 2100 [facility] Last Admin: 01/24/18 21:27 Dose: 20 mg Cetirizine HCl (Zyrtec*) 10 mg PO DAILY [facility] Last Admin: 01/25/18 09:04 Dose: 10 mg Dicyclomine HCl (Bentyl Cap*) 20 mg PO QID PRN PRN Reason: DIARRHEA Last Admin: 01/14/18 22:27 Dose: 20 mg Duloxetine HCl (Cymbalta Cap*) 90 mg PO DAILY [facility] Last Admin: 01/25/18 09:02 Dose: 90 mg Famotidine (Pepcid Tab*) 20 mg PO DAILY [facility] Last Admin: 01/25/18 09:04 Dose: 20 mg Hydroxyzine HCl (Atarax Tab*) 50 mg PO BID PRN PRN Reason: ANXIETY Last Admin: 01/25/18 09:06 Dose: 50 mg Levothyroxine Sodium (Synthroid Tab*) 50 mcg PO 0600 [facility] Last Admin: 01/25/18 06:05 Dose: 50 mcg Multivitamins (Theragran Tab*) 1 tab PO DAILY [facility] Last Admin: 01/25/18 09:05 Dose: 1 tab Omeprazole (Prilosec Cap*) 20 mg PO 0730 [facility] Last Admin: 01/25/18 09:04 Dose: 20 mg Prazosin HCl (Minipress Cap*) 2 mg PO BEDTIME [facility] Last Admin: 01/24/18 21:26 Dose: 2 mg Tamsulosin HCl (Flomax Cap*) 0.4 mg PO DAILY [facility] Last Admin: 01/25/18 09:05 Dose: 0.4 mg Topiramate (Topamax(*)) 100 mg PO DAILY [facility] Last Admin: 01/25/18 09:06 Dose: 100 mg Ziprasidone (Geodon (Generic) *) 80 mg PO BID [facility] Last Admin: 01/25/18 09:03 Dose: 80 mg Zolpidem Tartrate (Ambien Tab*) 5 mg PO BEDTIME PRN PRN Reason: INSOMNIA Last Admin: 01/24/18 21:29 Dose: 5 mg - Discharge Plan Discharge Plan: Consider Longer Term Tx
[2018-01-25] MEDS: Prazosin CAP* 1 MG PO SCH (20:04)
[2018-01-25] MEDS: Atorvastatin* 20 MG TAB PO SCH (20:05)
[2018-01-25] MEDS: Dicyclomine CAP* 10 MG PO PRN (23:40)
[2018-01-25] MEDS: Zolpidem TAB* 5 MG PO PRN (23:40)
[2018-01-26] MEDS: Levothyroxine TAB* 50 MCG TAB PO SCH (06:00)
[2018-01-26] MEDS: Omeprazole CAP* 20 MG PO SCH (07:40)
[2018-01-26] MEDS: Al Hydrox/Mg Hydrox/Simet LIQ* 30 ML UDC PO PRN ×2 (07:40→19:59)
[2018-01-26] MEDS: Ziprasidone * 20 MG CAP (generic Geodon) PO SCH ×2 (09:11→19:58)
[2018-01-26] MEDS: Topiramate TAB(*) 100 MG PO SCH (09:11)
[2018-01-26] MEDS: Vitamin THERAPEUTIC TAB PO SCH (09:11)
[2018-01-26] MEDS: Cetirizine* 10 MG TAB PO SCH (09:11)
[2018-01-26] MEDS: Tamsulosin CAP* 0.4 MG PO SCH (09:11)
[2018-01-26] MEDS: DULoxetine DR CAP* 30 MG CAP.DR PO SCH (09:11)
[2018-01-26] MEDS: Famotidine TAB* 20 MG PO SCH (09:11)
[2018-01-26] MEDS: Dicyclomine CAP* 10 MG PO PRN ×2 (09:12→19:59)
[2018-01-26] MEDS: hydrOXYzine HCL TAB* 50 MG PO PRN ×2 (10:56→21:19)
[2018-01-26] MEDS: Prazosin CAP* 1 MG PO SCH (19:58)
[2018-01-26] MEDS: Atorvastatin* 20 MG TAB PO SCH (19:58)
[2018-01-26] MEDS: Zolpidem TAB* 5 MG PO PRN (21:19)
[2018-01-27] MEDS: Al Hydrox/Mg Hydrox/Simet LIQ* 30 ML UDC PO PRN ×4 (01:01→23:59)
[2018-01-27] MEDS: Levothyroxine TAB* 50 MCG TAB PO SCH (07:35)
[2018-01-27] MEDS: DULoxetine DR CAP* 30 MG CAP.DR PO SCH (09:08)
[2018-01-27] MEDS: Ziprasidone * 20 MG CAP (generic Geodon) PO SCH ×2 (09:09→20:09)
[2018-01-27] MEDS: Famotidine TAB* 20 MG PO SCH (09:10)
[2018-01-27] MEDS: Omeprazole CAP* 20 MG PO SCH (09:10)
[2018-01-27] MEDS: Cetirizine* 10 MG TAB PO SCH (09:10)
[2018-01-27] MEDS: Topiramate TAB(*) 100 MG PO SCH (09:10)
[2018-01-27] MEDS: Vitamin THERAPEUTIC TAB PO SCH (09:11)
[2018-01-27] MEDS: Tamsulosin CAP* 0.4 MG PO SCH (09:11)
--- NOTE | 2018-01-27 11:41 | PN ---
Subjective - Subjective Date of Service: 01/27/18 Service Type: [id number] Hosp care 15 min low complexity Subjective: Abdifatah was informed this morning that the [facility] in [place] has declined him for transfer, expressing their belief that outpatient follow up is warranted at this time. The patient is grateful for this news, as he feels that he has improved and would prefer to go home. Krzysztof continues to deny SI and would like to follow up with [facility] clinic. Objective - Appearance Appearance: Well Developed/Nourished Dysmorphic Features: No Hygiene: Normal Grooming: Well Kept - Behavior Psychomotor Activities: Normal Exhibits Abnormal Movement: No - Attitude and Relatedness Attitude and Relatedness: Cooperative Eye Contact: Good - Speech Quality: Unpressured Latencies: Normal Quantity: Appropriate - Mood Patient's Decription of Mood: "Good" - Affect Observed Affect: Good Affect Consistent with: Euthymia - Thought Process Patient's Thought Process: Coherent Thought Content: No Passive Wish, No Suicidal Planning, No Homicidal Ideation, No Paranoid Ideation - Sensorium Experiencing Hallucinations: No, Sensorium is Clear Type of Hallucinations: Visual: No, Auditory: No, Command: No - Level of Consciousness Level of Consciousness: Alert Orientation: Yes Intact, Yes Orientated to Time, Yes Orientated to Place, Yes Orientated to Person - Impulse Control Impulse Control: Tenuous - Insight and Judgement Insight and Judgement: Fair - Group Participation Particating in Group Activities: Yes - Medication Management Medication Management Adherence: Yes Assessment - Assessment Merits Inpatient Hospitalization: Consolidate Improvements, Pending Safe DC Plan Inpatient DSM-V Dx: F43.12 Clinical Impression: 52 y.o. single, white, mentally disabled male with a history of severe PTSD and multiple previous mental health inpatient admissions presents with SI and AH. Plan - Plan Treatment Plan: Name: KRZYSZTOF MONDRAGON Birthdate: 1965 [id number] The patient is on a regimen of duloxetine, ziprasidone, zolpidem, topiramate prazosin and prn hydroxyzine. We will pursue discharge for tomorrow, January 28 , back to his [facility] apartment. Continued Medication Management: Continue Outpt Medication Medications: Current Medications Acetaminophen (Tylenol Tab*) 650 mg PO Q4H PRN PRN Reason: PAIN or TEMP > 101 F Last Admin: 01/25/18 18:11 Dose: 650 mg Al Hydrox/Mg Hydrox/Simethicone (Maalox Plus*) 30 ml PO Q4H PRN PRN Reason: INDIGESTION Last Admin: 01/27/18 01:01 Dose: 30 ml Albuterol (Ventolin Hfa Inhaler*) 2 puff INH Q4H PRN PRN Reason: SOB/WHEEZING Atorvastatin Calcium (Lipitor*) 20 mg PO 2100 [facility] Last Admin: 01/26/18 19:58 Dose: 20 mg Cetirizine HCl (Zyrtec*) 10 mg PO DAILY [facility] Last Admin: 01/27/18 09:10 Dose: 10 mg Dicyclomine HCl (Bentyl Cap*) 20 mg PO QID PRN PRN Reason: DIARRHEA Last Admin: 01/26/18 19:59 Dose: 20 mg Duloxetine HCl (Cymbalta Cap*) 90 mg PO DAILY [facility] Last Admin: 01/27/18 09:08 Dose: 90 mg Famotidine (Pepcid Tab*) 20 mg PO DAILY [facility] Last Admin: 01/27/18 09:10 Dose: 20 mg Hydroxyzine HCl (Atarax Tab*) 50 mg PO BID PRN PRN Reason: ANXIETY Last Admin: 01/26/18 21:19 Dose: 50 mg Levothyroxine Sodium (Synthroid Tab*) 50 mcg PO 0600 [facility] Last Admin: 01/27/18 07:35 Dose: 50 mcg Multivitamins (Theragran Tab*) 1 tab PO DAILY [facility] Last Admin: 01/27/18 09:11 Dose: 1 tab Omeprazole (Prilosec Cap*) 20 mg PO 0730 [facility] Last Admin: 01/27/18 09:10 Dose: 20 mg Prazosin HCl (Minipress Cap*) 2 mg PO BEDTIME [facility] Last Admin: 01/26/18 19:58 Dose: 2 mg Tamsulosin HCl (Flomax Cap*) 0.4 mg PO DAILY [facility] Last Admin: 01/27/18 09:11 Dose: 0.4 mg Topiramate (Topamax(*)) 100 mg PO DAILY [facility] Last Admin: 01/27/18 09:10 Dose: 100 mg Ziprasidone (Geodon (Generic) *) 80 mg PO BID [facility] Last Admin: 01/27/18 09:09 Dose: 80 mg Zolpidem Tartrate (Ambien Tab*) 5 mg PO BEDTIME PRN PRN Reason: INSOMNIA Last Admin: 01/26/18 21:19 Dose: 5 mg - Discharge Plan Discharge Plan: Outpatient Follow Up Outpatient Program: [facility]
[2018-01-27] MEDS: Atorvastatin* 20 MG TAB PO SCH (20:09)
[2018-01-27] MEDS: Prazosin CAP* 1 MG PO SCH (20:09)
[2018-01-27] MEDS: hydrOXYzine HCL TAB* 50 MG PO PRN (21:45)
[2018-01-27] MEDS: Zolpidem TAB* 5 MG PO PRN (21:45)
[2018-01-28 08:55] VITALS: BP 144/71
[2018-01-28] MEDS: Famotidine TAB* 20 MG PO SCH (09:21)
[2018-01-28] MEDS: DULoxetine DR CAP* 30 MG CAP.DR PO SCH (09:22)
[2018-01-28] MEDS: Topiramate TAB(*) 100 MG PO SCH (09:22)
[2018-01-28] MEDS: Cetirizine* 10 MG TAB PO SCH (09:22)
[2018-01-28] MEDS: Ziprasidone * 20 MG CAP (generic Geodon) PO SCH (09:22)
[2018-01-28] MEDS: Vitamin THERAPEUTIC TAB PO SCH (09:22)
[2018-01-28] MEDS: Tamsulosin CAP* 0.4 MG PO SCH (09:23)
[2018-01-28] MEDS: Omeprazole CAP* 20 MG PO SCH (09:23)
[2018-01-28] MEDS: Levothyroxine TAB* 50 MCG TAB PO SCH (09:23)
--- NOTE | 2018-01-28 13:55 | DS ---
DISCHARGE SUMMARY: DATE OF ADMISSION: 01/14/18 DATE OF DISCHARGE: 01/28/18 DISCHARGE DIAGNOSES: Melcroft I: Posttraumatic stress disorder, chronic. Melcroft II: Cluster A personality traits. CONDITION AT THE TIME OF DISCHARGE: Improved. Krzysztof is denying suicidal ideations and has been so for greater than a week. He has been safe on all checks, participating in groups, socializing with peers. There was some conversation about transferring him to the [facility] psychiatric facility where he has been treated before. However, the providers at [facility] declined to accept him as a transfer, feeling that he was back to his baseline. Indeed, the patient does prefer going home currently to his [place] supported apartment. He is tolerating his medication changes quite well. His affect does appear greatly improved. One significant recent stressor is the of his mother. We were able to provide him transportation from the hospital to her service and he has been appropriately grieving her. The patient has good psychosocial support in the community through [place] as well as [facility] and he is eager to follow up on an outpatient basis. MENTAL STATUS EXAM: At the time of discharge, the patient is a middle-aged white male with longish curly hair. He is wearing a long sleeve T-shirt and has somewhat fair to poor grooming. He is calm, cooperative, immediately sits up with good posture, makes good eye contact. Speech has a normal rate, tone, and volume. Mood is euthymic with a full affect. Thought process is linear and goal directed. Thought content is significant for his desire to be discharged from the hospital. He denies suicidal or homicidal ideations. Denies auditory or visual hallucinations. Insight and judgement appear to be fair given his willingness to follow up with outpatient services in the community. Cognitively he is awake and alert with what would appear to be an average intellect. LABORATORY DATA: Metabolic testing was performed on 01/15/18 revealing hemoglobin A1c of 5.6, triglycerides 473, cholesterol 188, LDL cholesterol 100, HDL cholesterol 17.7. DISCHARGE INSTRUCTIONS: A. Medications: The patient is takin. Albuterol inhaler as needed for wheezing. 2. Lipitor 20 mg daily. 3. Zyrtec 10 mg daily. 4. Bentyl 20 mg up to 4 times daily as needed for stomach cramping. 5. Cymbalta 90 mg p.o. daily. 6. Pepcid 20 mg daily. 7. Synthroid 50 mcg in the morning. 8. Omeprazole 20 mg p.o. daily. 9. Prazosin 2 mg p.o. at bedtime. 10. Tamsulosin 0.4 mg p.o. daily. 11. Topiramate 100 mg daily. 12. Vitamin supplementation. 13. Geodon 80 mg p.o. twice daily. 14. Ambien 5 mg p.o. q.h.s. B. Diet is regular. C. Activities as tolerated. The patient is a nonsmoker. There are no laboratory or diagnostic studies pending at the time of discharge. D. Followup care: The patient will be seen by the [facility] tomorrow which is 01/29/18. E. Substance abuse followup is nonapplicable. HOSPITAL COURSE: Part A: Mr. Banegas is a 52-year-old single while male with a history of PTSD, long-term mental health disability who resides in supportive housing at [place], who arrived in the emergency room complaining of abdominal pain and suicidal ideations. Apparently, his mother had recently within the last 2 weeks and he was very much grieving her loss. She had been a supportive entity in his life and he did not feel that he could be safe maintaining himself in the outpatient setting. Part B: Psychiatric treatment rendered. The patient was admitted to the adult behavioral health unit and placed on q.15 minute checks for his own safety. His medications were all continued as they had initially been granted in the outpatient setting. However, the following changes were made over the course of treatment. His clonidine was discontinued and replaced with a trial of prazosin 2 mg p.o. q.h.s., which he tolerated quite well. In addition, his antidepressant duloxetine was increased from 60 to 90 mg daily. In addition to this, his ziprasidone was increased from 60 to 80 mg twice daily with food. The patient was an active and eager participant in milieu activities, going to groups, socializing with peers. We were able to give him a therapeutic pass to leave the hospital grounds procuring a suit of clothes for him to attend his mother's service. He was in bereavement throughout the hospital stay, but seems to have a done a good job grieving the loss of his mother. There were some discussions because of his increased utilization of emergency psychiatric services here at the hospital about transferring him back to [facility] where he had been hospitalized 1 year ago in the summer. Ultimately, because the patient had been stable on our unit, he was declined for acceptance at [facility] and an alternative plan was made for him to return to [place] and continue intensive services through the [facility] program at [facility]. It should be noted that the patient has gone well over a week and a half without voicing any suicidal ideations. He does feel that he is safe to receive treatment in the outpatient setting and we are supportive of this. We wish Krzysztof the best with his health in the future and are very sorry for his recent loss. He will follow up at [facility]. [id number]/CPS #: [id number] REBEKA
== END 2018-01-28 17:23 | disposition home or self-care (01) | DRG 882 ==
LOC: ED 10:27 → BSU 20:33
PROVIDERS: ADMIT Psychiatry & Neurology Psychiatry; ATTEND Psychiatry & Neurology Psychiatry
PROC: GZHZZZZ Group Psychotherapy (ICD-10-PCS; principal; 2018-01-28)
DX: F43.12 Post-traumatic stress disorder, chronic (principal); R45.851 Suicidal ideations; F32.9 Major depressive disorder, single episode, unspecified; F41.9 Anxiety disorder, unspecified; F60.9 Personality disorder, unspecified; G40.909 Epilepsy, unspecified, not intractable, without status epilepticus; E03.9 Hypothyroidism, unspecified; K21.9 Gastro-esophageal reflux disease without esophagitis; E66.9 Obesity, unspecified; E78.00 Pure hypercholesterolemia, unspecified; E07.9 Disorder of thyroid, unspecified; R10.13 Epigastric pain; N18.9 Chronic kidney disease, unspecified; E83.52 Hypercalcemia; J44.9 Chronic obstructive pulmonary disease, unspecified; K58.9 Irritable bowel syndrome, unspecified; N40.0 Benign prostatic hyperplasia without lower urinary tract symptoms; D86.9 Sarcoidosis, unspecified; F20.9 Schizophrenia, unspecified; Z90.49 Acquired absence of other specified parts of digestive tract; Z82.49 Family history of ischemic heart disease and other diseases of the circulatory system; Z87.442 Personal history of urinary calculi; Z82.0 Family history of epilepsy and other diseases of the nervous system; Z91.5 Personal history of self-harm; Z63.4 Disappearance and death of family member; Z91.410 Personal history of adult physical and sexual abuse; Z79.52 Long term (current) use of systemic steroids; Z81.8 Family history of other mental and behavioral disorders; Z87.891 Personal history of nicotine dependence; Z68.35 Body mass index [BMI] 35.0-35.9, adult
CPT/HCPCS: 36415; 74019; 80053; 80061; 80307; 80320; 80329; 81003; 81015; 83036; 83721; 84443; 85025; 87086; 90853; 99222; 99231; 99232; 99238; 99284; A9270-GY; G0480

== ENCOUNTER 2018-03-03 15:04 | Emergency (ER) | payer MEDICARE, MEDICAID ==
--- NOTE | 2018-03-03 16:43 | ED ---
Psychiatric Complaint - HPI Summary HPI Summary: This patient is a 52 year old M presenting to [facility] with a chief complaint of SIB since waking up this AM. He states he feels the SIB because of a bad dream . Denies PMHx bipolar disorder, schizophrenia. Endorses PMHx depression, anxiety , and szs; he takes Topamax for the szs. - History Of Current Complaint Chief Complaint: EDMentalHealth Time Seen by Provider: 03/03/18 16:16 Hx Obtained From: Patient Onset/Duration: Sudden Onset, Lasting Hours Timing: Constant Severity Initially: Moderate Severity Currently: Moderate Character: Depressed, Anxious Aggravating Factor(s): Recent Stress - "a bad dream" last night Alleviating Factor(s): Nothing Related History: Positive For: Prior Psychiatric Issues Has Suicidal: Reports: Thoughts - not SI, but SIB Recent Stressor(s): "a bad dream" last night - Allergies/Home Medications Allergies/Adverse Reactions: Allergies Allergy/AdvReac Type Severity Reaction Status Date / Time No Known Allergies Allergy Verified 03/03/18 15:09 PMH/Surg Hx/FS Hx/Imm Hx Endocrine/Hematology History: Reports: Hx Thyroid Disease Denies: Hx Anticoagulant Therapy, Hx Diabetes, Hx Systemic Lupus Erythematosus, Hx Anemia Cardiovascular History: Reports: Hx Hypercholesterolemia, Other Cardiovascular Problems/Disorders - HYPERLIPIDEMIA Denies: Hx Congestive Heart Failure, Hx Hypertension, Hx Pacemaker/ICD Respiratory History: Reports: Other Respiratory Problems/Disorders - Sarcoidosis Denies: Hx Asthma, Hx Chronic Bronchitis, Hx Chronic Obstructive Pulmonary Disease (COPD) GI History: Reports: Hx Gastroesophageal Reflux Disease, Hx Irritable Bowel, Hx Obstructive Bowel - Small bowel, Other GI Disorders - CYST REMOVED FROM BLADDER , LATE Denies: Hx Ulcer History: Reports: Hx Kidney Stones, Hx Renal Disease - LEFT KIDNEY DECREASE IN FUNCTION, Other Problems/Disorders - HX OF CYST IN THE BLADDER Denies: Hx Benign Prostatic Hyperplasia, Hx Dialysis Musculoskeletal History: Reports: Other Musculoskeletal History - Sarcoidosis Denies: Hx Rheumatoid Arthritis Sensory History: Reports: Hx Contacts or Glasses Denies: Hx Hearing Aid Opthamlomology History: Reports: Hx Contacts or Glasses Neurological History: Reports: Hx Developmental Delay, Hx Headaches, Hx Seizures , Other Neuro Impairments/Disorders - "light concussion" Psychiatric History: Reports: Hx Anxiety, Hx Depression, Hx Post Traumatic Stress Disorder, Hx Inpatient Treatment, Hx Community Mental Health Tx, Hx Schizophrenia, Hx Suicide Attempt, Hx of Violent Episodes Against Others, Hx Substance Abuse, Other Psychiatric Issues/Disorders Denies: Hx Eating Disorder, Hx Panic Disorder - Cancer History Hx Chemotherapy: No - Surgical History Surgery Procedure, Year, and Place: 2009 [place] [facility] [place] [facility] [place] Hx Anesthesia Reactions: No - Immunization History Date of Tetanus Vaccine: Unknown Date of Influenza Vaccine: Fall 2013 Infectious Disease History: No Infectious Disease History: Denies: Hx Clostridium Difficile, Hx Hepatitis, Hx Human Immunodeficiency Virus (HIV), Hx of Known/Suspected MRSA, Hx Shingles, Hx Tuberculosis, Hx Known/ Suspected VRE, Hx Known/Suspected VRSA, History Other Infectious Disease, Traveled Outside the [place] in Last 30 Days - Family History Known Family History: Positive: Cardiac Disease, Hypertension - Father, Seizure Disorder - sister, Other - cancer - Social History Alcohol Use: None Alcohol Amount: none since 2011 Hx Substance Use: Yes Substance Use Type: Reports: None Substance Use Comment - Amount & Last Used: pt states he has not used any drugs since 2011. Hx Tobacco Use: Yes Smoking Status (MU): Light Every Day Tobacco Smoker Type: Cigarettes Length of Time of Smoking/Using Tobacco: 20YRS Have You Smoked in the Last Year: No Review of Systems Negative: Fever Psychological: Other - SIB urges Positive: Anxious, Depressed. Negative: Other - SI All Other Systems Reviewed And Are Negative: Yes Physical Exam - Summary Physical Exam Summary: Appearance: Well appearing, no pain distress Skin: warm, dry, reflects adequate perfusion Head/face: normal Eyes: EOMI, YANIRA ENT: normal Neck: supple, non-tender Respiratory: CTA, breath sounds present Cardiovascular: RRR, pulses symmetrical Abdomen: non-tender, soft Bowel: present Musculoskeletal: normal, strength/ROM intact Neuro: normal, sensory motor intact, A&Ox3 Psych: depressed affect Triage Information Reviewed: Yes Vital Signs On Initial Exam: Initial Vitals Temp Pulse Resp BP Pulse Ox 98.3 F 84 18 125/73 93 03/03/18 15:05 03/03/18 15:05 03/03/18 15:05 03/03/18 15:05 03/03/18 15:05 Vital Signs Reviewed: Yes Diagnostics - Vital Signs Vital Signs Temp Pulse Resp BP Pulse Ox 03/03/18 15:05 98.3 F 84 18 125/73 93 - Laboratory Result Diagrams: 03/03/18 17:37 03/03/18 17:37 Lab Statement: Any lab studies that have been ordered have been reviewed, and results considered in the medical decision making process. Course/Dx - Course Course Of Treatment: A 52-year-old M presents to the ED with a CC of SIB since waking up this AM. (+) depression, SIB. (-) SI. PMHx depression, anxiety, sz's. In the ED course, pt was given MgSO3. - Differential Dx/Clinical Impression Provider Diagnosis: Anxiety - Physician Notifications Discussed Care Of Patient With: Cecilia Truong Time Discussed With Above Provider: 20:57 Instructed by Provider To: Other - recommended discharge Discharge - Sign-Out/Discharge Documenting (check all that apply): Patient Departure - Discharge Plan Condition: Stable Disposition: HOME Patient Education Materials: Anxiety (ED) Referrals: [facility] [Outside] Tran Clayton MD [Primary Care Provider] - - Billing Disposition and Condition Condition: STABLE Disposition: Home
[2018-03-03 16:57] LABS: Urine Appearance Cloudy; Urine Blood Negative (Negative); Urine Color Yellow; Urine Ketones Negative (Negative); Urine Protein Negative (Negative); Urine Red Blood Cell Trace(0-2/hpf) (Absent); Urine Specific Gravity 1.013 (1.010-1.030); Urine Urobilinogen Negative (Negative); Urine White Blood Cell 2+(11-20/hpf) (Absent)
[2018-03-03] MEDS ORDERED: Magnesium Sulfate IV* 2 GM in NS 0.9% 100 ML* 100 ML IV ONE (17:44)
[2018-03-03 17:45] LABS: ABS Basophils 0.1 10^3/ul (0-0.2); ABS Eosinophils 0.2 10^3/ul (0-0.6); ABS Lymphocytes 1.2 10^3/ul (1.0-4.8); ABS Monocytes 0.7 10^3/ul (0-0.8); ABS Neutrophils 6.1 10^3/ul (1.5-7.7); ABS Nucleated RBC 0 10^3/ul; Eosinophil % 2.3 % (0-6); Hematocrit 43 % (42-52); Hemoglobin 14.9 g/dl (14.0-18.0); Lymphocyte % 15.1 % (25-47); Mean Corpuscular HGB Conc 35 g/dl (31-36); Mean Corpuscular Hemoglobin 31 pg (27-31); Mean Corpuscular Volume 90 fL (80-94); Mean Platelet Volume 7.7 um3 (7.4-10.4); Nucleated Red Blood Cells % 0.1; Platelet Count 255 10^3/ul (150-450); Red Blood Count 4.77 10^6/ul (4.00-5.40); Red Cell Distribution Width 13 % (10.5-15); White Blood Count 8.3 10^3/ul (3.5-10.8)
[2018-03-03 18:01] LABS: EGFR Non-African American 60.8 (>60)
[2018-03-03 21:49] VITALS: BP 147/79
== END 2018-03-03 21:47 | disposition home or self-care (01) ==
LOC: ED 15:04
DX: F41.8 Other specified anxiety disorders (principal); R56.9 Unspecified convulsions; F17.210 Nicotine dependence, cigarettes, uncomplicated; Z79.899 Other long term (current) drug therapy
CPT/HCPCS: 36415; 80053; 80307; 80320; 80329; 81003; 81015; 84443; 85025; 87086; 96374; 99284; G0480

== ENCOUNTER 2018-07-13 14:13 | Inpatient (IN) | payer MEDICARE, MEDICAID ==
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
[2018-07-13 15:31] LABS: ABS Basophils 0.1 10^3/ul (0-0.2); ABS Eosinophils 0.2 10^3/ul (0-0.6); ABS Lymphocytes 1.4 10^3/ul (1.0-4.8); ABS Monocytes 0.7 10^3/ul (0-0.8); ABS Nucleated RBC 0 10^3/ul; Eosinophil % 2.8 %; Hematocrit 43 % (42-52); Hemoglobin 14.8 g/dl (14.0-18.0); Lymphocyte % 16.1 %; Mean Corpuscular HGB Conc 34 g/dl (31-36); Mean Corpuscular Hemoglobin 32 pg (27-31); Mean Corpuscular Volume 92 fL (80-94); Nucleated Red Blood Cells % 0.1; Platelet Count 234 10^3/ul (150-450); Red Blood Count 4.71 10^6/ul (4.00-5.40); Red Cell Distribution Width 14 % (10.5-15); White Blood Count 8.4 10^3/ul (3.5-10.8)
[2018-07-13 15:41] LABS: EGFR Non-African American 66.3 (>60)
[2018-07-13] MEDS ORDERED: Mouth Piece, Nicotine* 1 EACH CARTRIDGE INH ONE (16:00)
[2018-07-13] MEDS ORDERED: Acetaminophen TAB* 325 MG PO PRN (19:37)
[2018-07-13] MEDS ORDERED: Al Hydrox/Mg Hydrox/Simet LIQ* 30 ML UDC PO PRN (19:39)
[2018-07-13] MEDS ORDERED: QUEtiapine TAB* 25 MG PO PRN (19:45)
[2018-07-13] MEDS ORDERED: Albuterol HFA INHALER* 8 gm MDI INH PRN (19:46)
[2018-07-13] MEDS: Famotidine TAB* 20 MG PO SCH (22:13)
[2018-07-13] MEDS: Dicyclomine CAP* 10 MG PO SCH (22:13)
[2018-07-13] MEDS: Ziprasidone CAP* 80 MG PO SCH (22:14)
[2018-07-13] MEDS: Zolpidem TAB* 5 MG PO SCH (22:14)
[2018-07-13] MEDS: Nicotine Inhaler* 10 MG AMP INH PRN (22:17)
[2018-07-14] MEDS: Levothyroxine TAB* 50 MCG TAB PO SCH (06:00)
[2018-07-14] MEDS: Doxazosin TAB* 2 MG PO SCH (08:28)
[2018-07-14] MEDS: Famotidine TAB* 20 MG PO SCH ×2 (08:29→21:47)
[2018-07-14] MEDS: Cetirizine* 10 MG TAB PO SCH (08:29)
[2018-07-14] MEDS: Topiramate TAB(*) 100 MG PO SCH (08:29)
[2018-07-14] MEDS: Omeprazole CAP* 20 MG PO SCH (08:29)
[2018-07-14] MEDS: Vitamin THERAPEUTIC TAB PO SCH (08:29)
[2018-07-14] MEDS: Ziprasidone CAP* 80 MG PO SCH ×2 (08:30→21:46)
[2018-07-14] MEDS: DULoxetine DR CAP* 60 MG CAP.DR PO SCH (08:30)
[2018-07-14] MEDS: Dicyclomine CAP* 10 MG PO SCH ×2 (08:30→21:45)
[2018-07-14] MEDS: DULoxetine DR CAP* 30 MG CAP.DR PO SCH (08:30)
[2018-07-14] MEDS: Nicotine Inhaler* 10 MG AMP INH PRN (15:46)
--- NOTE | 2018-07-14 15:56 | PN ---
MHU: Group Therapy Note - Service Type Service Type: [id number] Group Psychotherapy - Group Participation Patient Participating in Group: No Level of Group Participation: Inattentive Relatedness to Group: Other - Abdifatah came late to the group and sat through it looking blankly at the board. He was not intrusive, but he did not participate.
[2018-07-14] MEDS: Zolpidem TAB* 5 MG PO SCH (21:47)
[2018-07-14] MEDS: Prazosin CAP* 1 MG PO SCH (21:47)
[2018-07-14] MEDS: Atorvastatin* 20 MG TAB PO SCH (21:47)
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
[2018-07-15] MEDS: Levothyroxine TAB* 50 MCG TAB PO SCH (06:30)
[2018-07-15] MEDS: Cetirizine* 10 MG TAB PO SCH (09:03)
[2018-07-15] MEDS: Doxazosin TAB* 2 MG PO SCH (09:03)
[2018-07-15] MEDS: Omeprazole CAP* 20 MG PO SCH (09:03)
[2018-07-15] MEDS: Ziprasidone CAP* 80 MG PO SCH ×2 (09:03→21:33)
[2018-07-15] MEDS: Famotidine TAB* 20 MG PO SCH ×2 (09:04→21:33)
[2018-07-15] MEDS: Topiramate TAB(*) 100 MG PO SCH (09:04)
[2018-07-15] MEDS: Vitamin THERAPEUTIC TAB PO SCH (09:04)
[2018-07-15] MEDS: DULoxetine DR CAP* 60 MG CAP.DR PO SCH (09:05)
[2018-07-15] MEDS: DULoxetine DR CAP* 30 MG CAP.DR PO SCH (09:05)
[2018-07-15] MEDS: Dicyclomine CAP* 10 MG PO SCH ×2 (09:05→21:34)
--- NOTE | 2018-07-15 10:08 | PN ---
Subjective - Subjective Date of Service: 07/15/18 Service Type: [id number] Hosp care 15 min low complexity Subjective: Patient reports improved mood and sleep. He denies nightmares or suicidal ideation. He states he intends to go to all of the groups this evening as he slept the majority of today. He completed ADLs and is laundering his clothing. Patient states readiness to return home tomorrow. Objective - Appearance Appearance: Obese Dysmorphic Features: No Hygiene: Normal Grooming: Fairly Well Kept - Behavior Psychomotor Activities: Normal Exhibits Abnormal Movement: No - Attitude and Relatedness Attitude and Relatedness: Superficially Cooperative Eye Contact: Good - Speech Quality: Unpressured Latencies: Normal Quantity: Appropriate - Mood Patient's Decription of Mood: "Good" - Affect Observed Affect: Good Affect Consistent with: Euthymia - Thought Process Patient's Thought Process: Coherent, Goal Directed Thought Content: No Passive Wish, No Suicidal Planning, No Homicidal Ideation, No Paranoid Ideation - Sensorium Experiencing Hallucinations: No, Sensorium is Clear Type of Hallucinations: Visual: No, Auditory: No, Command: No - Level of Consciousness Level of Consciousness: Alert Orientation: Yes Intact, Yes Orientated to Time, Yes Orientated to Place, Yes Orientated to Person - Impulse Control Impulse Control: Intact - Insight and Judgement Insight and Judgement: Fair - Group Participation Particating in Group Activities: No - Medication Management Medication Management Adherence: Yes Assessment - Assessment Merits Inpatient Hospitalization: For Immediate Safety, For Stabilization Inpatient DSM-V Dx: F43.12 Clinical Impression: 52yo wm with history of PTSD, cluster A personality d/o and intellectual disability. He reports onset of SI r/t nightmares of childhood trauma. Patient merits hospitalization for immediate safety. MHU: Problem List - Patient Problems (1) PTSD (post-traumatic stress disorder) Current Visit: Yes Status: Chronic Priority: High Onset Date: 06/30/15 Code(s): F43.10 - POST-TRAUMATIC STRESS DISORDER, UNSPECIFIED SNOMED Code(s): 99893507 Comment: continue medications and therapeutic interventions Plan - Plan Treatment Plan: Name: SONIA MONDRAGON Birthdate: 1965 [id number] continue acute intensive psychiatric treatment. may decrease to q30min observation and allow staff pass. continue current medications. discharge tentative for 07/16/18. Continued Medication Management: Continue Outpt Medication Medications: Current Medications Acetaminophen (Tylenol Tab*) 650 mg PO Q4H PRN PRN Reason: PAIN or TEMP > 101 F Al Hydrox/Mg Hydrox/Simethicone (Maalox Plus*) 30 ml PO Q4H PRN PRN Reason: INDIGESTION Albuterol (Ventolin Hfa Inhaler*) 1 puff INH Q6H PRN PRN Reason: SHORTNESS OF BREATH Atorvastatin Calcium (Lipitor*) 20 mg PO BEDTIME [facility] Last Admin: 07/14/18 21:47 Dose: 20 mg Cetirizine HCl (Zyrtec*) 10 mg PO DAILY [facility] Last Admin: 07/15/18 09:03 Dose: 10 mg Dicyclomine HCl (Bentyl Cap*) 20 mg PO BID [facility] Last Admin: 07/15/18 09:05 Dose: Not Given Doxazosin Mesylate (Cardura Tab*) 4 mg PO DAILY [facility] Last Admin: 07/15/18 09:03 Dose: 4 mg Duloxetine HCl (Cymbalta Cap*) 60 mg PO DAILY [facility] Last Admin: 07/15/18 09:05 Dose: 60 mg Duloxetine HCl (Cymbalta Cap*) 30 mg PO DAILY [facility] Last Admin: 07/15/18 09:05 Dose: 30 mg Famotidine (Pepcid Tab*) 20 mg PO BID [facility] Last Admin: 07/15/18 09:04 Dose: 20 mg Levothyroxine Sodium (Synthroid Tab*) 50 mcg PO DAILY@0600 [facility] Last Admin: 07/15/18 06:30 Dose: 50 mcg Multivitamins (Theragran Tab*) 1 tab PO DAILY [facility] Last Admin: 07/15/18 09:04 Dose: 1 tab Nicotine (Nicotine Inhaler*) 10 mg INH Q2H PRN PRN Reason: CRAVING Last Admin: 07/14/18 15:46 Dose: 10 mg Omeprazole (Prilosec Cap*) 20 mg PO DAILY@0730 [facility] Last Admin: 07/15/18 09:03 Dose: 20 mg Prazosin HCl (Minipress Cap*) 2 mg PO BEDTIME [facility] Last Admin: 07/14/18 21:47 Dose: 2 mg Quetiapine Fumarate (Seroquel Tab*) 50 mg PO TID PRN PRN Reason: ANXIETY Last Admin: 07/15/18 02:20 Dose: 50 mg Topiramate (Topamax(*)) 100 mg PO DAILY [facility] Last Admin: 07/15/18 09:04 Dose: 100 mg Ziprasidone (Geodon Cap*) 80 mg PO BID [facility] Last Admin: 07/15/18 09:03 Dose: 80 mg Zolpidem Tartrate (Ambien Tab*) 5 mg PO BEDTIME [facility] Last Admin: 07/14/18 21:47 Dose: 5 mg - Discharge Plan Discharge Plan: Outpatient Follow Up Outpatient Program: [facility]
[2018-07-15] MEDS: Zolpidem TAB* 5 MG PO SCH (21:33)
[2018-07-15] MEDS: Atorvastatin* 20 MG TAB PO SCH (21:33)
[2018-07-15] MEDS: Prazosin CAP* 1 MG PO SCH (21:34)
[2018-07-16] MEDS: Levothyroxine TAB* 50 MCG TAB PO SCH (06:30)
[2018-07-16 08:36] VITALS: BP 135/80
[2018-07-16] MEDS: Vitamin THERAPEUTIC TAB PO SCH (08:38)
[2018-07-16] MEDS: Dicyclomine CAP* 10 MG PO SCH (08:38)
[2018-07-16] MEDS: Ziprasidone CAP* 80 MG PO SCH (08:38)
[2018-07-16] MEDS: Cetirizine* 10 MG TAB PO SCH (08:38)
[2018-07-16] MEDS: Topiramate TAB(*) 100 MG PO SCH (08:38)
[2018-07-16] MEDS: Omeprazole CAP* 20 MG PO SCH (08:38)
[2018-07-16] MEDS: DULoxetine DR CAP* 60 MG CAP.DR PO SCH (08:38)
[2018-07-16] MEDS: Famotidine TAB* 20 MG PO SCH (08:38)
[2018-07-16] MEDS: DULoxetine DR CAP* 30 MG CAP.DR PO SCH (08:39)
[2018-07-16] MEDS: Doxazosin TAB* 2 MG PO SCH (08:39)
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
== END 2018-07-16 14:45 | disposition home or self-care (01) | DRG 882 ==
LOC: ED 14:13 → BSU 19:12
PROVIDERS: ADMIT Psychiatry & Neurology Psychiatry; ATTEND Psychiatry & Neurology Psychiatry
PROC: GZHZZZZ Group Psychotherapy (ICD-10-PCS; principal; 2018-07-13)
DX: F43.12 Post-traumatic stress disorder, chronic (principal); R45.851 Suicidal ideations; F60.89 Other specific personality disorders; Z62.810 Personal history of physical and sexual abuse in childhood; G40.909 Epilepsy, unspecified, not intractable, without status epilepticus; J45.909 Unspecified asthma, uncomplicated; E03.9 Hypothyroidism, unspecified; K21.9 Gastro-esophageal reflux disease without esophagitis; E66.9 Obesity, unspecified; F41.9 Anxiety disorder, unspecified; F17.210 Nicotine dependence, cigarettes, uncomplicated; F32.9 Major depressive disorder, single episode, unspecified; E78.00 Pure hypercholesterolemia, unspecified; D86.9 Sarcoidosis, unspecified; K58.9 Irritable bowel syndrome, unspecified; R62.50 Unspecified lack of expected normal physiological development in childhood; Z90.89 Acquired absence of other organs; Z82.49 Family history of ischemic heart disease and other diseases of the circulatory system; Z80.8 Family history of malignant neoplasm of other organs or systems; Z82.0 Family history of epilepsy and other diseases of the nervous system; Z56.0 Unemployment, unspecified; Z68.33 Body mass index [BMI] 33.0-33.9, adult
CPT/HCPCS: 36415; 80053; 80061; 80320; 80329; 83036; 83721; 84443; 85025; 90853; 99222; 99231; 99238; 99284; A9270-GY; G0480

== ENCOUNTER 2018-09-26 08:15 | Emergency (ER) | payer MEDICARE, MEDICAID ==
--- NOTE | 2018-09-26 08:56 | ED ---
Psychiatric Complaint - HPI Summary HPI Summary: This patient is a 52 year old M presenting to [facility] with a chief complaint of SI since last week. Patient states he plans to slit his wrists. Patient additionally complains of nausea with a burning sensation in his stomach. Patient reports he was last admitted to the psychiatric unit roughly 2-3 months ago. Medications include Cymbalta, Minipress, and Geodon. - History Of Current Complaint Chief Complaint: EDMentalHealth Time Seen by Provider: 09/26/18 08:28 Hx Obtained From: Patient Onset/Duration: Lasting Weeks Timing: Constant Character: Depressed Related History: Positive For: Prior Psychiatric Issues Has Suicidal: Reports: Thoughts, With A Plan - Allergies/Home Medications Allergies/Adverse Reactions: Allergies Allergy/AdvReac Type Severity Reaction Status Date / Time No Known Allergies Allergy Verified 03/03/18 15:09 PMH/Surg Hx/FS Hx/Imm Hx Endocrine/Hematology History: Reports: Hx Thyroid Disease Denies: Hx Anticoagulant Therapy, Hx Diabetes, Hx Systemic Lupus Erythematosus, Hx Anemia Cardiovascular History: Reports: Hx Hypercholesterolemia, Other Cardiovascular Problems/Disorders - HYPERLIPIDEMIA Denies: Hx Congestive Heart Failure, Hx Hypertension, Hx Pacemaker/ICD Respiratory History: Reports: Other Respiratory Problems/Disorders - Sarcoidosis Denies: Hx Asthma, Hx Chronic Bronchitis, Hx Chronic Obstructive Pulmonary Disease (COPD) GI History: Reports: Hx Gastroesophageal Reflux Disease, Hx Irritable Bowel, Hx Obstructive Bowel - Small bowel, Other GI Disorders - CYST REMOVED FROM BLADDER , LATE Denies: Hx Ulcer History: Reports: Hx Kidney Stones, Hx Renal Disease - LEFT KIDNEY DECREASE IN FUNCTION, Other Problems/Disorders - HX OF CYST IN THE BLADDER Denies: Hx Benign Prostatic Hyperplasia, Hx Dialysis Musculoskeletal History: Reports: Other Musculoskeletal History - Sarcoidosis Denies: Hx Rheumatoid Arthritis Sensory History: Reports: Hx Contacts or Glasses Denies: Hx Hearing Aid Opthamlomology History: Reports: Hx Contacts or Glasses Neurological History: Reports: Hx Developmental Delay, Hx Headaches, Hx Seizures , Other Neuro Impairments/Disorders - "light concussion" Psychiatric History: Reports: Hx Anxiety, Hx Depression, Hx Panic Disorder, Hx Post Traumatic Stress Disorder, Hx Inpatient Treatment, Hx Community Mental Health Tx, Hx Suicide Attempt, Other Psychiatric Issues/Disorders Denies: Hx Attention Deficit Hyperactivity Disorder, Hx Eating Disorder, Hx Schizophrenia, Hx Bipolar Disorder, Hx of Violent Episodes Against Others, Hx Substance Abuse - Cancer History Hx Chemotherapy: No - Surgical History Surgery Procedure, Year, and Place: 2009 APPENDECTOMY, [facility] [place] CYST REMOVED FROM BLADDER, [facility] [place] CHOLECYSTECTOMY-12/2012 Hx Anesthesia Reactions: No - Immunization History Date of Tetanus Vaccine: Unknown Date of Influenza Vaccine: Fall 2013 Infectious Disease History: No Infectious Disease History: Denies: Hx Clostridium Difficile, Hx Hepatitis, Hx Human Immunodeficiency Virus (HIV), Hx of Known/Suspected MRSA, Hx Shingles, Hx Tuberculosis, Hx Known/ Suspected VRE, Hx Known/Suspected VRSA, History Other Infectious Disease, Traveled Outside the [place] in Last 30 Days - Family History Known Family History: Positive: Cardiac Disease, Hypertension - Father, Seizure Disorder - sister, Other - cancer - Social History Alcohol Use: None Alcohol Amount: none since 2011 Hx Substance Use: Yes Substance Use Type: Reports: None Substance Use Comment - Amount & Last Used: pt states he has not used any drugs since 2011. Hx Tobacco Use: Yes Smoking Status (MU): Heavy Every Day Tobacco Smoker Type: Cigarettes Length of Time of Smoking/Using Tobacco: 20YRS Have You Smoked in the Last Year: No Review of Systems Positive: Abdominal Pain Positive: Depressed All Other Systems Reviewed And Are Negative: Yes Physical Exam - Summary Physical Exam Summary: Appearance: The patient is well-nourished in no acute distress and in no acute pain. Skin: The skin is warm and dry and skin color reflects adequate perfusion. HEENT: The head is normocephalic and atraumatic. The pupils are equal and reactive. The conjunctivae are clear and without drainage. Nares are patent and without drainage. Mouth reveals moist mucous membranes and the throat is without erythema and exudate. The external ears are intact. The ear canals are patent and without drainage. The tympanic membranes are intact. Neck: The neck is supple with full range of motion and non-tender. There are no carotid bruits. There is no neck vein distension. Respiratory: Chest is non-tender. Lungs are clear to auscultation and breath sounds are symmetrical and equal. Cardiovascular: Heart is regular rate and rhythm. There is no murmur or rub auscultated. There is no peripheral edema and pulses are symmetrical and equal. Abdomen: The abdomen is soft and non-tender. There are normal bowel sounds heard in all four quadrants and there is no organomegaly palpated. Musculoskeletal: There is no back tenderness noted. Extremities are non-tender with full range of motion. There is good capillary refill. There is no peripheral edema or calf tenderness elicited. Neurological: Patient is alert and oriented to person, place and time. The patient has symmetrical motor strength in all four extremities. Cranial nerves are grossly intact. Deep tendon reflexes are symmetrical and equal in all four extremities. Psychiatric: The patient has an appropriate affect and does not exhibit any anxiety or depression. Triage Information Reviewed: Yes Vital Signs On Initial Exam: Initial Vitals Temp Pulse Resp BP Pulse Ox 98.6 F 94 22 158/91 94 09/26/18 08:19 09/26/18 08:19 09/26/18 08:19 09/26/18 08:19 09/26/18 08:19 Vital Signs Reviewed: Yes Diagnostics - Vital Signs Vital Signs Temp Pulse Resp BP Pulse Ox 09/26/18 08:19 98.6 F 94 22 158/91 94 - Laboratory Lab Statement: Any lab studies that have been ordered have been reviewed, and results considered in the medical decision making process. - EKG 0900 Cardiac Rate: NL - 70 BPM EKG Rhythm: Sinus Rhythm - paced EKG Comparison: No Significant Change Course/Dx - Course Course Of Treatment: Mr. Banegas presented as he usually does complaining of epigastric pain and depression with suicidal ideation. He was given a GI cocktail which improved his stomach pain and he was medically cleared. He was evaluated by the mental health unit provider and was more forthcoming with his story. He apparently has been taking care of his sister and cannot tolerate doing in any more and was looking for awake to get out of it. He is denying suicidal ideation now and agreeing to go home. - Differential Dx/Clinical Impression Provider Diagnosis: Anxiety disorder, unspecified Discharge - Sign-Out/Discharge Documenting (check all that apply): Patient Departure Patient Received Moderate/Deep Sedation with Procedure: No - Discharge Plan Condition: Stable Disposition: HOME Referrals: Tran Clayton MD [Primary Care Provider] - - Billing Disposition and Condition Condition: STABLE Disposition: Home - Attestation Statements Document Initiated by Scribe: Yes Documenting Scribe: Jake Pitts Provider For Whom Scribe is Documenting (Include Credential): Gerald Collins MD Scribe Attestation: Jake John, scribed for Gerald Collins MD on 09/27/18 at 1402. Scribe Documentation Reviewed: Yes Provider Attestation: The documentation as recorded by the scribe, Jake Pitts accurately reflects the service I personally performed and the decisions made by me, Gerald Collins MD Status of Scribe Document: Viewed
[2018-09-26] MEDS ORDERED: Lidocaine 2% VISCOUS* 15 ML UDC PO ONE (09:01)
[2018-09-26 12:12] VITALS: BP 130/85
== END 2018-09-26 11:57 | disposition home or self-care (01) ==
LOC: ED 08:15
DX: F41.9 Anxiety disorder, unspecified (principal); F17.210 Nicotine dependence, cigarettes, uncomplicated
CPT/HCPCS: 99284

== ENCOUNTER 2018-10-21 15:24 | Inpatient (IN) | payer MEDICARE, MEDICAID ==
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
[2018-10-21] MEDS ORDERED: Mouth Piece, Nicotine* 1 EACH CARTRIDGE INH PRN (16:31)
[2018-10-21 16:54] LABS: ABS Basophils 0.1 10^3/ul (0-0.2); ABS Eosinophils 0.2 10^3/ul (0-0.6); ABS Lymphocytes 1.2 10^3/ul (1.0-4.8); ABS Monocytes 0.6 10^3/ul (0-0.8); ABS Neutrophils 5.4 10^3/ul (1.5-7.7); ABS Nucleated RBC 0 10^3/ul; Eosinophil % 3.2 %; Hematocrit 43 % (42-52); Hemoglobin 14.7 g/dl (14.0-18.0); Lymphocyte % 16.2 %; Mean Corpuscular HGB Conc 34 g/dl (31-36); Mean Corpuscular Hemoglobin 31 pg (27-31); Mean Corpuscular Volume 92 fL (80-94); Mean Platelet Volume 7.9 fL (7.4-10.4); Nucleated Red Blood Cells % 0; Platelet Count 247 10^3/ul (150-450); Red Blood Count 4.71 10^6/ul (4.00-5.40); Red Cell Distribution Width 13 % (10.5-15); White Blood Count 7.6 10^3/ul (3.5-10.8)
[2018-10-21 17:11] LABS: ALT 27 U/L (7-52); AST 21 U/L (13-39); Albumin 4.1 g/dL (3.2-5.2); Albumin/Globulin Ratio 1.9 (1-3); Alkaline Phosphatase 74 U/L (34-104); Anion Gap 6 mmol/L (2-11); Blood Urea Nitrogen 25 mg/dL (6-24); CO2 Carbon Dioxide 26 mmol/L (22-32); Calcium 9.7 mg/dL (8.6-10.3); Chloride 105 mmol/L (101-111); EGFR African American 77.1 (>60); EGFR Non-African American 63.7 (>60); Globulin 2.2 g/dL (2-4); Glucose 117 mg/dL (70-100); Sodium 137 mmol/L (135-145); Total Protein 6.3 g/dL (6.4-8.9)
[2018-10-21 17:12] LABS: Acetaminophen < 15 mcg/mL; Alcohol < 10 mg/dL (<10); Salicylate < 2.50 mg/dL (<30)
[2018-10-21 17:17] LABS: Urine Appearance Cloudy; Urine Bacteria Absent (Absent); Urine Bilirubin Negative (Negative); Urine Blood 1+ (Negative); Urine Color Yellow; Urine Glucose Negative (Negative); Urine Ketones Negative (Negative); Urine Nitrite Negative (Negative); Urine Protein Negative (Negative); Urine Red Blood Cell 1+(3-5/hpf) (Absent); Urine Specific Gravity 1.014 (1.010-1.030); Urine Urobilinogen Negative (Negative); Urine White Blood Cell 1+(6-10/hpf) (Absent)
[2018-10-21 17:25] LABS: Barbiturates Urine Screen None Detected (None Detect); Benzodiazepine Urine Screen None Detected (None Detect); Urine Cannabinoids Screen None Detected (None Detect)
[2018-10-21 17:26] LABS: TSH (Thyroid Stimulating Horm) 0.91 mcIU/mL (0.34-5.60)
[2018-10-21] MEDS ORDERED: Acetaminophen TAB* 325 MG PO PRN (20:58)
[2018-10-21] MEDS ORDERED: Nicotine GUM* 2 MG PO PRN (20:59)
[2018-10-21] MEDS ORDERED: Dicyclomine CAP* 10 MG PO PRN (21:19)
[2018-10-21] MEDS ORDERED: QUEtiapine TAB* 25 MG PO PRN (21:25)
[2018-10-21] MEDS ORDERED: Albuterol HFA INHALER* 8 gm MDI INH PRN (21:27)
[2018-10-21] MEDS: Atorvastatin* 20 MG TAB PO SCH (22:08)
[2018-10-21] MEDS: Prazosin CAP* 1 MG PO SCH (22:08)
[2018-10-21] MEDS: Zolpidem TAB* 5 MG PO SCH (22:09)
[2018-10-21] MEDS: Famotidine TAB* 20 MG PO SCH (22:09)
[2018-10-21] MEDS: Al Hydrox/Mg Hydrox/Simet LIQ* 30 ML UDC PO PRN (22:12)
[2018-10-22] MEDS: Ziprasidone CAP* 80 MG PO SCH ×2 (08:17→17:21)
[2018-10-22] MEDS: Levothyroxine TAB* 50 MCG TAB PO SCH (08:17)
[2018-10-22] MEDS: DULoxetine DR CAP* 30 MG CAP.DR PO SCH (08:17)
[2018-10-22] MEDS: Doxazosin TAB* 2 MG PO SCH (08:18)
[2018-10-22] MEDS: Topiramate TAB(*) 100 MG PO SCH (08:18)
[2018-10-22] MEDS: Pantoprazole TAB * 40 MG TAB PO SCH (08:19)
[2018-10-22] MEDS: Multivitamins/Minerals TAB PO SCH (08:19)
[2018-10-22] MEDS: Famotidine TAB* 20 MG PO SCH ×2 (08:19→20:23)
[2018-10-22] MEDS: Cetirizine* 10 MG TAB PO SCH (08:19)
[2018-10-22] MEDS: Al Hydrox/Mg Hydrox/Simet LIQ* 30 ML UDC PO PRN ×2 (08:20→20:24)
[2018-10-22] MEDS: Lidocaine 2% JELLY *30 ML TOPICAL SCH ×4 (08:21→20:24)
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
[2018-10-22] MEDS: Atorvastatin* 20 MG TAB PO SCH (20:22)
[2018-10-22] MEDS: Prazosin CAP* 1 MG PO SCH (20:23)
[2018-10-22] MEDS: Zolpidem TAB* 5 MG PO SCH (20:24)
[2018-10-23] MEDS: Topiramate TAB(*) 100 MG PO SCH (08:18)
[2018-10-23] MEDS: Multivitamins/Minerals TAB PO SCH (08:18)
[2018-10-23] MEDS: Ziprasidone CAP* 80 MG PO SCH ×2 (08:19→17:15)
[2018-10-23] MEDS: Famotidine TAB* 20 MG PO SCH ×2 (08:19→20:48)
[2018-10-23] MEDS: Cetirizine* 10 MG TAB PO SCH (08:19)
[2018-10-23] MEDS: DULoxetine DR CAP* 30 MG CAP.DR PO SCH (08:19)
[2018-10-23] MEDS: Doxazosin TAB* 2 MG PO SCH (08:20)
[2018-10-23] MEDS: Levothyroxine TAB* 50 MCG TAB PO SCH (08:21)
[2018-10-23] MEDS: Pantoprazole TAB * 40 MG TAB PO SCH (08:21)
[2018-10-23] MEDS: Lidocaine 2% JELLY *30 ML TOPICAL SCH ×4 (08:22→21:29)
[2018-10-23] MEDS: Al Hydrox/Mg Hydrox/Simet LIQ* 30 ML UDC PO PRN (10:12)
--- NOTE | 2018-10-23 17:23 | PN ---
Subjective - Subjective Date of Service: 10/23/18 Service Type: 20771 Hosp care 15 min low complexity Subjective: Sonia reports that he has been doing fine today. Hasn't bee feeling paranoid, hearing voices or feeling suicidal. Walking around the unit and appears to be in good mood. Objective - Appearance Appearance: Healthy Appearing, Obese Dysmorphic Features: No Hygiene: Mal-odorous Grooming: Disheveled - Behavior Psychomotor Activities: Normal Exhibits Abnormal Movement: No - Attitude and Relatedness Attitude and Relatedness: Appropriate Eye Contact: Good - Speech Quality: Unpressured Latencies: Normal Quantity: Appropriate - Mood Patient's Decription of Mood: "Fine" - Affect Observed Affect: Good Affect Consistent with: Euthymia - Thought Process Patient's Thought Process: Coherent, Goal Directed Thought Content: No Passive Wish, No Suicidal Planning, No Homicidal Ideation, No Paranoid Ideation - Sensorium Experiencing Hallucinations: No, Sensorium is Clear Type of Hallucinations: Visual: No, Auditory: No, Command: No - Level of Consciousness Level of Consciousness: Alert Orientation: Yes Intact, Yes Orientated to Time, Yes Orientated to Place, Yes Orientated to Person - Impulse Control Impulse Control: Intact - Insight and Judgement Insight and Judgement: Fair - Group Participation Particating in Group Activities: No - Medication Management Medication Management Adherence: Yes Assessment - Assessment Merits Inpatient Hospitalization: Consolidate Improvements, Pending Safe DC Plan Clinical Impression: Appears to have improved significantly and can be discharged soon. Plan - Plan Treatment Plan: Name: SONIA MONDRAGON Birthdate: 1965 [id number] Continued Medication Management: Continue Outpt Medication Medications: Current Medications Acetaminophen (Tylenol Tab*) 650 mg PO Q4H PRN PRN Reason: PAIN;OR TEMP>101 Al Hydrox/Mg Hydrox/Simethicone (Maalox Plus*) 30 ml PO Q4H PRN PRN Reason: INDIGESTION Last Admin: 10/23/18 10:12 Dose: 30 ml Albuterol (Ventolin Hfa Inhaler*) 2 puff INH Q6H PRN PRN Reason: SHORTNESS OF BREATH Atorvastatin Calcium (Lipitor*) 20 mg PO BEDTIME [facility] Last Admin: 10/22/18 20:22 Dose: 20 mg Cetirizine HCl (Zyrtec*) 10 mg PO DAILY [facility] Last Admin: 10/23/18 08:19 Dose: 10 mg Device (Nicotine Mouth Piece*) 1 each INH .USE W/ CARTRIDGE PRN PRN Reason: WITHDRAWAL - NICOTINE Dicyclomine HCl (Bentyl Cap*) 20 mg PO BID PRN PRN Reason: DIARRHEA Doxazosin Mesylate (Cardura Tab*) 4 mg PO DAILY [facility] Last Admin: 10/23/18 08:20 Dose: 4 mg Duloxetine HCl (Cymbalta Cap*) 90 mg PO DAILY [facility] Last Admin: 10/23/18 08:19 Dose: 90 mg Famotidine (Pepcid Tab*) 20 mg PO BID [facility] Last Admin: 10/23/18 08:19 Dose: 20 mg Levothyroxine Sodium (Synthroid Tab*) 50 mcg PO DAILY [facility] Last Admin: 10/23/18 08:21 Dose: 50 mcg Lidocaine HCl (Lidocaine 2% Jelly*) 1 applic TOPICAL QID [facility] Last Admin: 10/23/18 17:09 Dose: Not Given Multivitamins/Minerals (Theragran/Minerals Tab*) 1 tab PO DAILY [facility] Last Admin: 10/23/18 08:18 Dose: 1 tab Nicotine (Nicotine Inhaler*) 10 mg INH Q2H PRN PRN Reason: CRAVING Nicotine Polacrilex (Nicotine Gum*) 2 mg PO Q2H PRN PRN Reason: CRAVING Pantoprazole Sodium (Protonix Tab*) 40 mg PO DAILY [facility] Last Admin: 10/23/18 08:21 Dose: 40 mg Prazosin HCl (Minipress Cap*) 2 mg PO BEDTIME [facility] Last Admin: 10/22/18 20:23 Dose: 2 mg Quetiapine Fumarate (Seroquel Tab*) 25 mg PO TID PRN PRN Reason: AGITATION/ANXIETY Last Admin: 10/22/18 01:40 Dose: 25 mg Topiramate (Topamax(*)) 100 mg PO DAILY [facility] Last Admin: 10/23/18 08:18 Dose: 100 mg Ziprasidone (Geodon Cap*) 80 mg PO BID WITH MEALS [facility] Last Admin: 10/23/18 17:15 Dose: 80 mg Zolpidem Tartrate (Ambien Tab*) 5 mg PO BEDTIME [facility] Last Admin: 10/22/18 20:24 Dose: 5 mg - Discharge Plan Discharge Plan: Outpatient Follow Up Outpatient Program: [facility]
[2018-10-23] MEDS: Atorvastatin* 20 MG TAB PO SCH (20:48)
[2018-10-23] MEDS: Prazosin CAP* 1 MG PO SCH (20:48)
[2018-10-23] MEDS: Zolpidem TAB* 5 MG PO SCH (20:48)
[2018-10-24] MEDS: Doxazosin TAB* 2 MG PO SCH (08:38)
[2018-10-24] MEDS: Topiramate TAB(*) 100 MG PO SCH (08:38)
[2018-10-24] MEDS: Levothyroxine TAB* 50 MCG TAB PO SCH (08:38)
[2018-10-24] MEDS: Cetirizine* 10 MG TAB PO SCH (08:38)
[2018-10-24] MEDS: Pantoprazole TAB * 40 MG TAB PO SCH (08:38)
[2018-10-24] MEDS: Ziprasidone CAP* 80 MG PO SCH ×2 (08:38→18:30)
[2018-10-24] MEDS: DULoxetine DR CAP* 30 MG CAP.DR PO SCH (08:38)
[2018-10-24] MEDS: Multivitamins/Minerals TAB PO SCH (08:38)
[2018-10-24] MEDS: Famotidine TAB* 20 MG PO SCH ×2 (08:38→21:49)
[2018-10-24] MEDS: Lidocaine 2% JELLY *30 ML TOPICAL SCH (08:41)
[2018-10-24] MEDS: Al Hydrox/Mg Hydrox/Simet LIQ* 30 ML UDC PO PRN (09:53)
[2018-10-24] MEDS: Lidocaine 2% JELLY* 6 ML JELLY TOPICAL SCH ×3 (12:43→21:49)
[2018-10-24] MEDS: Zolpidem TAB* 5 MG PO SCH (21:48)
[2018-10-24] MEDS: Prazosin CAP* 1 MG PO SCH (21:48)
[2018-10-24] MEDS: Atorvastatin* 20 MG TAB PO SCH (21:49)
[2018-10-25] MEDS: Pantoprazole TAB * 40 MG TAB PO SCH (08:51)
[2018-10-25] MEDS: Cetirizine* 10 MG TAB PO SCH (08:51)
[2018-10-25] MEDS: Topiramate TAB(*) 100 MG PO SCH (08:51)
[2018-10-25] MEDS: DULoxetine DR CAP* 30 MG CAP.DR PO SCH (08:51)
[2018-10-25] MEDS: Ziprasidone CAP* 80 MG PO SCH ×2 (08:52→16:49)
[2018-10-25] MEDS: Multivitamins/Minerals TAB PO SCH (08:52)
[2018-10-25] MEDS: Doxazosin TAB* 2 MG PO SCH (08:52)
[2018-10-25] MEDS: Levothyroxine TAB* 50 MCG TAB PO SCH (08:52)
[2018-10-25] MEDS: Famotidine TAB* 20 MG PO SCH ×2 (08:52→20:19)
[2018-10-25] MEDS: Nicotine Inhaler* 10 MG AMP INH PRN (09:23)
[2018-10-25] MEDS: Lidocaine 2% JELLY* 6 ML JELLY TOPICAL SCH ×4 (10:26→21:08)
[2018-10-25] MEDS: Al Hydrox/Mg Hydrox/Simet LIQ* 30 ML UDC PO PRN (10:55)
--- NOTE | 2018-10-25 11:39 | PN ---
BSU: Group Therapy Note - Service Type Service Type: 42880 Group Psychotherapy - Cognitive Behavioral Group Therapy ( CBT):Patient was attentive and participatory in CBT programming this morning, and remained in good behavioral control. Patient expressed positive insights regarding relevant treatment interventions and goals.
--- NOTE | 2018-10-25 15:16 | PN ---
Subjective - Subjective Date of Service: 10/25/18 Service Type: 09158 Hosp care 15 min low complexity Subjective: Abdifatah is in a good mood today. He's feeling a little silly and having fun chit chatting with people. He is smiling in a mischievous manner and is happy to greet people multiple times in the hallways as he walks around. He is agreeable to leaving tomorrow, as well. I did assign him to figure out what he wants to accomplish by age 58 and he's come up with leaving the [employer] and getting to be on his own. He has no idea what steps to take to do that, however. Objective - Appearance Appearance: Well Developed/Nourished Dysmorphic Features: No Hygiene: Normal Grooming: Disheveled - Behavior Psychomotor Activities: Normal Exhibits Abnormal Movement: No - Attitude and Relatedness Attitude and Relatedness: Cooperative Eye Contact: Good - Speech Quality: Unpressured Latencies: Normal Quantity: Terse - Mood Patient's Decription of Mood: "Good" - Affect Observed Affect: Good Affect Consistent with: Euthymia - Thought Process Patient's Thought Process: Coherent, Goal Directed Thought Content: No Passive Wish, No Suicidal Planning, No Homicidal Ideation, No Paranoid Ideation - Sensorium Experiencing Hallucinations: No, Sensorium is Clear Type of Hallucinations: Visual: No, Auditory: No, Command: No - Level of Consciousness Level of Consciousness: Alert Orientation: Yes Intact, Yes Orientated to Time, Yes Orientated to Place, Yes Orientated to Person - Impulse Control Impulse Control: Tenuous - Insight and Judgement Insight and Judgement: Fair - Group Participation Particating in Group Activities: Yes - Medication Management Medication Management Adherence: Yes Assessment - Assessment Merits Inpatient Hospitalization: For Immediate Safety, For Discharge Planning Clinical Impression: Abdifatah is a 52-year-old white man with a history of PTSD and dependent personality characteristics who comes to the hospital in the days before his birthday feeling like he will never amount to anything by the time he is 53 years old and feeling like ending his life because of that. BSU: Problem List - Patient Problems (1) PTSD (post-traumatic stress disorder) Current Visit: No Status: Chronic Priority: High Onset Date: 06/30/15 Code(s): F43.10 - POST-TRAUMATIC STRESS DISORDER, UNSPECIFIED SNOMED Code(s): 69399104 Comment: continue medications and therapeutic interventions Plan - Plan Treatment Plan: Name: SONIA MONDRAGON Birthdate: 1965 [id number] Continued Medication Management: Continue Outpt Medication Medications: Current Medications Acetaminophen (Tylenol Tab*) 650 mg PO Q4H PRN PRN Reason: PAIN;OR TEMP>101 Al Hydrox/Mg Hydrox/Simethicone (Maalox Plus*) 30 ml PO Q4H PRN PRN Reason: INDIGESTION Last Admin: 10/25/18 10:55 Dose: 30 ml Albuterol (Ventolin Hfa Inhaler*) 2 puff INH Q6H PRN PRN Reason: SHORTNESS OF BREATH Atorvastatin Calcium (Lipitor*) 20 mg PO BEDTIME [facility] Last Admin: 10/24/18 21:49 Dose: 20 mg Cetirizine HCl (Zyrtec*) 10 mg PO DAILY [facility] Last Admin: 10/25/18 08:51 Dose: 10 mg Device (Nicotine Mouth Piece*) 1 each INH .USE W/ CARTRIDGE PRN PRN Reason: WITHDRAWAL - NICOTINE Last Admin: 10/25/18 09:23 Dose: 1 each Dicyclomine HCl (Bentyl Cap*) 20 mg PO BID PRN PRN Reason: DIARRHEA Doxazosin Mesylate (Cardura Tab*) 4 mg PO DAILY [facility] Last Admin: 10/25/18 08:52 Dose: 4 mg Duloxetine HCl (Cymbalta Cap*) 90 mg PO DAILY [facility] Last Admin: 10/25/18 08:51 Dose: 90 mg Famotidine (Pepcid Tab*) 20 mg PO BID [facility] Last Admin: 10/25/18 08:52 Dose: 20 mg Levothyroxine Sodium (Synthroid Tab*) 50 mcg PO DAILY [facility] Last Admin: 10/25/18 08:52 Dose: 50 mcg Lidocaine HCl (Lidocaine 2% Jelly*) 1 applic TOPICAL QID [facility] Last Admin: 10/25/18 14:40 Dose: Not Given Multivitamins/Minerals (Theragran/Minerals Tab*) 1 tab PO DAILY [facility] Last Admin: 10/25/18 08:52 Dose: 1 tab Nicotine (Nicotine Inhaler*) 10 mg INH Q2H PRN PRN Reason: CRAVING Last Admin: 10/25/18 09:23 Dose: 10 mg Nicotine Polacrilex (Nicotine Gum*) 2 mg PO Q2H PRN PRN Reason: CRAVING Pantoprazole Sodium (Protonix Tab*) 40 mg PO DAILY [facility] Last Admin: 10/25/18 08:51 Dose: 40 mg Prazosin HCl (Minipress Cap*) 2 mg PO BEDTIME [facility] Last Admin: 10/24/18 21:48 Dose: 2 mg Quetiapine Fumarate (Seroquel Tab*) 25 mg PO TID PRN PRN Reason: AGITATION/ANXIETY Last Admin: 10/22/18 01:40 Dose: 25 mg Topiramate (Topamax(*)) 100 mg PO DAILY [facility] Last Admin: 10/25/18 08:51 Dose: 100 mg Ziprasidone (Geodon Cap*) 80 mg PO BID WITH MEALS [facility] Last Admin: 10/25/18 08:52 Dose: 80 mg Zolpidem Tartrate (Ambien Tab*) 5 mg PO BEDTIME [facility] Last Admin: 10/24/18 21:48 Dose: 5 mg - Discharge Plan Discharge Plan: Outpatient Follow Up Outpatient Program: [facility] Additional Comments: Will be discharged Thursday and is eager to go forward with his potential plans.
[2018-10-25] MEDS: Prazosin CAP* 1 MG PO SCH (20:19)
[2018-10-25] MEDS: Zolpidem TAB* 5 MG PO SCH (20:19)
[2018-10-25] MEDS: Atorvastatin* 20 MG TAB PO SCH (20:19)
[2018-10-26] MEDS: Nicotine Inhaler* 10 MG AMP INH PRN (02:20)
[2018-10-26] MEDS: DULoxetine DR CAP* 30 MG CAP.DR PO SCH (08:52)
[2018-10-26] MEDS: Ziprasidone CAP* 80 MG PO SCH (08:52)
[2018-10-26] MEDS: Famotidine TAB* 20 MG PO SCH (08:52)
[2018-10-26] MEDS: Doxazosin TAB* 2 MG PO SCH (08:53)
[2018-10-26] MEDS: Pantoprazole TAB * 40 MG TAB PO SCH (08:53)
[2018-10-26] MEDS: Topiramate TAB(*) 100 MG PO SCH (08:53)
[2018-10-26] MEDS: Levothyroxine TAB* 50 MCG TAB PO SCH (08:54)
[2018-10-26] MEDS: Multivitamins/Minerals TAB PO SCH (08:54)
[2018-10-26] MEDS: Cetirizine* 10 MG TAB PO SCH (08:54)
[2018-10-26] MEDS: Al Hydrox/Mg Hydrox/Simet LIQ* 30 ML UDC PO PRN (08:55)
[2018-10-26] MEDS: Lidocaine 2% JELLY* 6 ML JELLY TOPICAL SCH (11:07)
[2018-10-26 13:27] VITALS: BP 132/77
--- NOTE | 2018-10-26 18:54 | DS ---
CC: Abdifatah Mina at [facility]; Dr. Colby Bran at [facility]; Dr. Tran Clayton * DISCHARGE SUMMARY: DATE OF ADMISSION: 10/21/18 DATE OF DISCHARGE: 10/26/18 PROVIDER: Merly Anand NP in Psychiatry. SUPERVISING PHYSICIAN: Dr. Campbell Lucas.* (DICTATED BY MERLY ANAND NP ) DIAGNOSES: 1. Posttraumatic stress disorder. 2. Depressive disorder. 3. Anxiety disorder. 4. 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 5. Hypothyroid. 6. Seizure disorder. 7. Gastroesophageal reflux disorder. CONDITION AT THE TIME OF DISCHARGE: Improved. Psychiatrically cleared. Stable. Participated in groups, was social with peers. He has done well here psychiatrically. There were no med changes made. He will attend [facility]. MENTAL STATUS EXAM: At the time of discharge, Krzysztof is calm, cooperative, makes good eye contact. He is alert and oriented x3. His grooming is fair. His speech pace is low. Thought processes are logical. He is not psychotic or delusional. He denies AH, VH, SI and HI. His insight is fair. His judgment is good. He was willing to follow up. He is urged to see his therapist. DISCHARGE INSTRUCTIONS TO THE PATIENT: A. Medications: 1. Acetaminophen 500 mg tablets p.o. q. 6 hours p.r.n. pain. 2. Maalox 20 mL b.i.d. p.r.n. indigestion. 3. Albuterol inhaler 1 puff q. 6 hours p.r.n. shortness of breath. 4. Atorvastatin 20 mg at bedtime. 5. Cetirizine 10 mg daily. 6. Dicyclomine 20 mg b.i.d. 7. Doxazosin 4 mg daily. 8. Duloxetine 90 mg total daily. 9. Famotidine 20 mg b.i.d. 10. Levothyroxine 50 mcg p.o. q.a.m. 11. Lidocaine 2% jelly 1 application topically q.i.d. 12. Nicotine nasal spray 10 to 20 mg both nares q. 1 hour p.r.n. craving. 13. Omeprazole 20 mg q.a.m. 14. Pantoprazole 40 mg daily. 15. Prazosin 2 mg at bedtime. 16. Quetiapine 25 mg p.o. t.i.d. p.r.n. agitation and anxiety. 17. Topamax 100 mg daily. 18. Ziprasidone 80 mg b.i.d. with meals. 19. Zolpidem 5 mg p.o. at bedtime p.r.n. sleep. B. Diet is regular. C. Activities as tolerated. Krzysztof has declined a referral to the [facility] Smokers' Quitline at this time. If he decides to access this free service in the future, he can contact the Quitline toll free at [phone]. There are no studies pending at the time of discharge. D. Followup Care: He has appointments at [facility] on 10/28/18 at 9 a.m. with Abdifatah Mina and 11/04/[address] Bran. He also is referred to Dr. Tran Clayton, his primary care provider and he is recommended to see her within 30 days of discharge. E. Substance abuse: Followup is not indicated. HOSPITAL COURSE: Part A: Chief complaint: "I have been thinking about things from my past." Krzysztof is a 52-year-old single white male with a history of posttraumatic stress disorder who arrives on a voluntary status following flashback of his past and the trauma that he has survived. Krzysztof has been a visitor at this unit for many years, multiple times a year, usually he has gone to this [facility] hospital in the past. At this time, his stressors appeared to be internal as he is approaching age 53 on 11/02/18 and feels as though he has not accomplished anything. He offers a lot of shrugging when asked about what he would like to have accomplished or what he will like to have accomplished. He has been assigned a task of coming up with things that he would like to do by the time he is 58. He is depressed. His interest in things is low. He seems to feel guilty about being here. His energy is low. He has an upset stomach. He wants to stay in bed. His appetite is therefore poor. He is having suicidal ideation. Part B: Psychiatric treatment was rendered. Krzysztof was admitted to the adult behavioral unit and placed on 15-minute checks for safety. He did well on the unit and went to groups. He interacted with peers well. There were no medication changes. Krzysztof did accomplish the goal of finding out what he would like to do by age 58 and that is to become independent and live elsewhere from the [facility]. He had no idea how to do that, but he was quite proud of himself for coming up with the goal. His hemoglobin A1c is 5.5% on 07/14/18. On the same date, his triglycerides were 421, cholesterol 129, LDL cholesterol direct 57, HDL cholesterol 22.4. No consults were entered for Krzysztof. He is improved. He is no longer suicidal. He has a goal and idea of how to make a plan perhaps in the future. He is quite pleasant and cheerful in conversation in the last 2 days of his stay here and he agrees that he is safe to go home. MERLY ANAND, MATI [id number]/CPS #: [id number] REBEKA
== END 2018-10-26 13:30 | disposition home or self-care (01) | DRG 882 ==
LOC: ED 15:24 → BSU 19:44
PROVIDERS: ADMIT Psychiatry & Neurology Psychiatry; ATTEND Psychiatry & Neurology Psychiatry
DX: F43.10 Post-traumatic stress disorder, unspecified (principal); R45.851 Suicidal ideations; G40.909 Epilepsy, unspecified, not intractable, without status epilepticus; F32.9 Major depressive disorder, single episode, unspecified; F41.9 Anxiety disorder, unspecified; F60.7 Dependent personality disorder; E03.9 Hypothyroidism, unspecified; K21.9 Gastro-esophageal reflux disease without esophagitis; Z62.810 Personal history of physical and sexual abuse in childhood; E66.9 Obesity, unspecified; Z68.34 Body mass index [BMI] 34.0-34.9, adult; J45.909 Unspecified asthma, uncomplicated; Z79.84 Long term (current) use of oral hypoglycemic drugs; Z79.51 Long term (current) use of inhaled steroids; Z79.899 Other long term (current) drug therapy; Z81.8 Family history of other mental and behavioral disorders
CPT/HCPCS: 36415; 80053; 80307; 80320; 80329; 81003; 81015; 84443; 85025; 87086; 87088; 90853; 99222; 99231; 99238; 99284; A9270-GY; G0480

== ENCOUNTER 2019-01-25 14:09 | Emergency (ER) | payer MEDICARE, MEDICAID ==
[2019-01-25] MEDS ORDERED: NS 0.9% 1000 ML** 1,000 ML IV ONE (14:12)
[2019-01-25] MEDS ORDERED: PROCHLORPERAZINE INJ 5 MG/ML 2 ML VIAL IV ONE (14:13)
--- NOTE | 2019-01-25 14:16 | ED ---
Abdominal Pain/Male - HPI Summary HPI Summary: This pt is a 53 y/o male presenting to [facility] via EMS for abd pain x12 days. Pt reports his abd pain began first with vomiting. He notes last week he had diarrhea that was described as watery and nonbloody. Pt today denies vomiting or diarrhea. He describes his abd pain as diffuse, nonradiating, and as a dull ache. Pt currently rates his pain 8/10 in severity. Denies fever, chills, chest pain, SOB. Pt has been seeing Dr. Clayton for his abd pain. He reports at first they thought his abd pain was related to dairy products. - History of Current Complaint Stated Complaint: ABD PAIN PER EMS Hx Obtained From: Patient Onset/Duration: Lasting Days - 12, Still Present Timing: Lasting Days - 12 Severity Currently: Moderate Pain Intensity: 8 Pain Scale Used: 0-10 Numeric Location: Diffuse Radiates: No Character: Dull Aggravating Factor(s): Nothing Alleviating Factor(s): Nothing Associated Signs And Symptoms: Positive: Nausea, Vomiting, Diarrhea. Negative: Fever, Chest Pain - Allergies/Home Medications Allergies/Adverse Reactions: Allergies Allergy/AdvReac Type Severity Reaction Status Date / Time No Known Allergies Allergy Verified 01/25/19 14:14 Home Medications: Home Medications Atorvastatin* [Lipitor*] 20 mg PO 2100 01/25/19 [History Confirmed 01/25/19] Cetirizine* [ZyrTEC 10 MG TAB*] 10 mg PO DAILY PRN 01/25/19 [History Confirmed 01/25/19] Doxazosin TAB* [Cardura TAB*] 4 mg PO DAILY 01/25/19 [History Confirmed 01/25/19 ] Famotidine TAB* [Pepcid 20 MG TAB*] 20 mg PO BID 01/25/19 [History Confirmed 07/05] Levothyroxine TAB* [Synthroid TAB*] 50 mcg PO QAM 01/25/19 [History Confirmed ] Prazosin CAP* [Minipress CAP*] 2 mg PO BEDTIME 01/25/19 [History Confirmed 01/25] Prochlorperazine TAB* [Compazine Tab*] 5 mg PO BID PRN 01/25/19 [History Confirmed 01/25/19] Topiramate TAB(*) [Topamax 100 mg tab] 100 mg PO BID 01/25/19 [History Confirmed 01/25/19] PMH/Surg Hx/FS Hx/Imm Hx Endocrine/Hematology History: Reports: Hx Thyroid Disease Denies: Hx Anticoagulant Therapy, Hx Diabetes, Hx Systemic Lupus Erythematosus, Hx Anemia Cardiovascular History: Reports: Hx Hypercholesterolemia, Other Cardiovascular Problems/Disorders - HYPERLIPIDEMIA Denies: Hx Congestive Heart Failure, Hx Hypertension, Hx Pacemaker/ICD Respiratory History: Reports: Other Respiratory Problems/Disorders - Sarcoidosis Denies: Hx Asthma, Hx Chronic Bronchitis, Hx Chronic Obstructive Pulmonary Disease (COPD) GI History: Reports: Hx Gastroesophageal Reflux Disease, Hx Irritable Bowel, Hx Obstructive Bowel - Small bowel, Other GI Disorders - CYST REMOVED FROM BLADDER , LATE Denies: Hx Ulcer History: Reports: Hx Kidney Stones, Hx Renal Disease - LEFT KIDNEY DECREASE IN FUNCTION, Other Problems/Disorders - HX OF CYST IN THE BLADDER Denies: Hx Benign Prostatic Hyperplasia, Hx Dialysis Musculoskeletal History: Reports: Other Musculoskeletal History - Sarcoidosis Denies: Hx Rheumatoid Arthritis Sensory History: Reports: Hx Contacts or Glasses Denies: Hx Hearing Aid Opthamlomology History: Reports: Hx Contacts or Glasses Neurological History: Reports: Hx Developmental Delay, Hx Headaches, Hx Seizures , Other Neuro Impairments/Disorders - "light concussion" Psychiatric History: Reports: Hx Anxiety, Hx Depression, Hx Panic Disorder, Hx Post Traumatic Stress Disorder, Hx Inpatient Treatment, Hx Community Mental Health Tx, Hx Suicide Attempt, Other Psychiatric Issues/Disorders Denies: Hx Attention Deficit Hyperactivity Disorder, Hx Eating Disorder, Hx Schizophrenia, Hx Bipolar Disorder, Hx of Violent Episodes Against Others, Hx Substance Abuse - Cancer History Hx Chemotherapy: No - Surgical History Surgery Procedure, Year, and Place: [place] [facility] [place] [facility] [place] Hx Anesthesia Reactions: No - Immunization History Date of Tetanus Vaccine: Unknown Date of Influenza Vaccine: Fall 2013 Infectious Disease History: No Infectious Disease History: Denies: Hx Clostridium Difficile, Hx Hepatitis, Hx Human Immunodeficiency Virus (HIV), Hx of Known/Suspected MRSA, Hx Shingles, Hx Tuberculosis, Hx Known/ Suspected VRE, Hx Known/Suspected VRSA, History Other Infectious Disease, Traveled Outside the [place] in Last 30 Days - Family History Known Family History: Positive: Cardiac Disease, Hypertension - Father, Seizure Disorder - sister, Other - cancer - Social History Alcohol Use: None Alcohol Amount: none since 2012 Hx Substance Use: Yes Substance Use Type: Reports: None Substance Use Comment - Amount & Last Used: pt states he has not used any drugs since 2012. Hx Tobacco Use: Yes Smoking Status (MU): Heavy Every Day Tobacco Smoker Type: Cigarettes Length of Time of Smoking/Using Tobacco: 20YRS Have You Smoked in the Last Year: No Review of Systems Negative: Fever, Chills Negative: Chest Pain Negative: Shortness Of Breath Positive: Abdominal Pain, Vomiting - now resolved, Diarrhea - now resolved, Nausea All Other Systems Reviewed And Are Negative: Yes Physical Exam - Summary Physical Exam Summary: VITAL SIGNS: Reviewed. GENERAL: Patient is a well-developed and nourished male who is lying comfortable in the stretcher. Patient is not in any acute respiratory distress. HEAD AND FACE: Normocephalic and atraumatic. EYES: PERRLA, EOMI x 2, No injected conjunctiva. EARS: Hearing grossly intact. Ear canals and tympanic membranes are WNL. MOUTH: Oropharynx within normal limits. NECK: Supple, trachea is midline, no adenopathy, no JVD. CHEST: Symmetric, no tenderness at palpation LUNGS: Clear to auscultation bilaterally. No wheezing or crackles. CVS: RRR, S1 and S2 present, no murmurs or gallops appreciated. ABDOMEN: Soft, non-tender. Abdomen is distended. Positive bowel sounds. No rebound no guarding, and no masses palpated. No abdominal bruit or pulsations. EXTREMITIES: FROM in all major joints, no edema, no cyanosis or clubbing. NEURO: Alert and oriented x 3. No acute neurological deficits. Speech is normal. SKIN: Dry and warm. Triage Information Reviewed: Yes Vital Signs On Initial Exam: Initial Vitals Temp Pulse Resp BP Pulse Ox 98.4 F 84 18 121/76 95 01/25/19 14:09 01/25/19 14:09 01/25/19 14:01/25/19 14:01/25/19 14:09 Vital Signs Reviewed: Yes Diagnostics - Vital Signs Vital Signs Temp Pulse Resp BP Pulse Ox 01/25/19 14:09 98.4 F 84 18 121/76 95 - Laboratory Result Diagrams: 01/25/19 14:29 01/25/19 14:29 Lab Statement: Any lab studies that have been ordered have been reviewed, and results considered in the medical decision making process. - CT Abdomen/Pelvis CT CT Interpretation Completed By: Radiologist Summary of CT Findings: IMPRESSION: 1. No evidence for acute finding. 2. Urinary bladder wall thickening on the left side which has progressed from the prior exam. Recommend cystoscopy to exclude a mass. 3. Severe atrophy of the left kidney, unchanged. 4. Mild hepatomegaly and hepatic steatosis, unchanged. 5. Status post cholecystectomy and appendectomy. Dr. Dunham has reviewed this report. - EKG 14:23 Cardiac Rate: NL - at 79 bpm EKG Rhythm: Sinus Rhythm EKG Comparison: No Significant Change - similar to prior on 12/09/17. Summary of EKG Findings: Normal sinus rhythm at [address] elevations. Left bundle branch block. Abdominal Pain Male Course/Dx - Course Assessment/Plan: This pt is a 53 y/o male presenting to [facility] via EMS for abd pain x12 days. Pt reports his abd pain began first with vomiting. He notes last week he had diarrhea that was described as watery and nonbloody. Pt today denies vomiting or diarrhea. He describes his abd pain as diffuse, nonradiating , and as a dull ache. Pt currently rates his pain 8/10 in severity. Denies fever , chills, chest pain, SOB. Pt has been seeing Dr. Clayton for his abd pain. He reports at first they thought his abd pain was related to dairy products. Past medical history significant for. 1- Anxiety disorder. 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 3- Learning disability. 4- Depressive disorder. 5- Hypothyroidism. 6- Seizure disorder. 7- GERD. 8- PTSD. 9- Depression. 10- Small bowel obstruction. Blood test results without any significant abnormality except for glucose of 102, CRP of 17.0, total protein is 5.9, lipase is 86. Abdominal pelvic CT impression: No evidence for acute findings. Urinary bladder wall thickening on the left side which has progressed from prior. Recommends a cystoscopy to exclude mass. In the ED course the patient was given IV fluids. He reports that his abdominal pain has resolved without any pain medications. Therefore at this point I strongly recommend for the patient to follow up with urology for possible cystoscopy for these urinary bladder wall thickening. The patient understands and agrees. The patient is hemodynamically stable, alert and oriented 3. - Diagnoses Provider Diagnoses: Lower abdominal pain, Thick muscular wall of urinary bladder present on ultrasound Discharge - Sign-Out/Discharge Documenting (check all that apply): Patient Departure - Discharge home Patient Received Moderate/Deep Sedation with Procedure: No - Discharge Plan Condition: Stable Disposition: HOME Patient Education Materials: Abdominal Pain (ED) Referrals: Tran Clayton MD [Primary Care Provider] - Brayden Myers MD [Medical Doctor] - Additional Instructions: Follow up with urology, Dr. Meyrs. FOLLOW UP WITH YOUR PRIMARY CARE PROVIDER IN 2-3 DAYS. RETURN TO THE EMERGENCY DEPARTMENT FOR ANY WORSENING OR NEW SYMPTOMS. - Billing Disposition and Condition Condition: STABLE Disposition: Home - Attestation Statements Document Initiated by Scribe: Yes Documenting Scribe: Lawanda Burgos Provider For Whom Santose is Documenting (Include Credential): Antolin Dunham MD Scribe Attestation: Lawanda John, scribed for Antolin Dunham MD on 01/25/19 at 6123. Scribe Documentation Reviewed: Yes Provider Attestation: The documentation as recorded by the Lawanda farah accurately reflects the service I personally performed and the decisions made by me, Antolin Dunham MD Status of Scribe Document: Viewed
[2019-01-25 14:37] LABS: ABS Eosinophils 0.1 10^3/ul (0-0.6); ABS Lymphocytes 0.9 10^3/ul (1.0-4.8); ABS Monocytes 0.7 10^3/ul (0-0.8); ABS Neutrophils 3.7 10^3/ul (1.5-7.7); Eosinophil % 2.7 %; Hematocrit 41 % (42-52); Hemoglobin 14.3 g/dL (14.0-18.0); Lymphocyte % 16.8 %; Mean Corpuscular HGB Conc 35 g/dL (31-36); Mean Corpuscular Hemoglobin 32 pg (27-31); Mean Corpuscular Volume 90 fL (80-94); Mean Platelet Volume 7.8 fL (7.4-10.4); Nucleated Red Blood Cells % 0.1; Platelet Count 196 10^3/uL (150-450); Red Blood Count 4.53 10^6 /uL (4.18-5.48); Red Cell Distribution Width 13 % (10-15); White Blood Count 5.5 10^3/uL (3.5-10.8)
[2019-01-25 15:15] LABS: Albumin 3.8 g/dL (3.2-5.2); Albumin/Globulin Ratio 1.8 (1-3); BUN/Creatinine Ratio 18.3 (8-20); C Reactive Protein 17.06 mg/L (<8.01); Calcium 8.7 mg/dL (8.6-10.3); EGFR African American 79.9 (>60); Globulin 2.1 g/dL (2-4); Magnesium 2.3 mg/dL (1.9-2.7); Potassium 3.7 mmol/L (3.5-5.0); Total Bilirubin 0.2 mg/dL (0.2-1.0); Total Protein 5.9 g/dL (6.4-8.9)
[2019-01-25] MEDS ORDERED: Iohexol 300* (CONTRAST) 10 ML SDV IV ONE (16:11)
[2019-01-25 20:24] LABS: Urine Appearance Clear; Urine Bilirubin Negative (Negative); Urine Blood Negative (Negative); Urine Color Yellow; Urine Glucose Negative (Negative); Urine Ketones Negative (Negative); Urine Nitrite Negative (Negative); Urine Protein Negative (Negative); Urine Specific Gravity > 1.060 (1.010-1.030); Urine Urobilinogen Negative (Negative)
[2019-01-25 21:04] VITALS: BP 137/85
== END 2019-01-25 21:07 | disposition home or self-care (01) ==
LOC: ED 14:09
DX: R10.30 Lower abdominal pain, unspecified (principal); N32.89 Other specified disorders of bladder; E07.9 Disorder of thyroid, unspecified; E78.00 Pure hypercholesterolemia, unspecified; E78.5 Hyperlipidemia, unspecified; F17.210 Nicotine dependence, cigarettes, uncomplicated; Z79.899 Other long term (current) drug therapy
CPT/HCPCS: 36415; 74177; 80053; 81003; 82150; 82550; 83605; 83690; 83735; 83880; 84484; 85025; 86140; 93005; 96361; 96374; 99284; J0780; Q9967

== ENCOUNTER 2019-02-24 12:21 | Inpatient (IN) | payer MEDICARE, MEDICAID ==
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
[2019-02-24 13:04] LABS: ABS Basophils 0.1 10^3/ul (0-0.2); ABS Eosinophils 0.2 10^3/ul (0-0.6); ABS Lymphocytes 1.3 10^3/ul (1.0-4.8); ABS Monocytes 0.8 10^3/ul (0-0.8); ABS Neutrophils 4.8 10^3/ul (1.5-7.7); Eosinophil % 2.8 %; Hematocrit 45 % (42-52); Hemoglobin 15.4 g/dL (14.0-18.0); Lymphocyte % 17.7 %; Mean Corpuscular HGB Conc 35 g/dL (31-36); Mean Corpuscular Hemoglobin 32 pg (27-31); Mean Corpuscular Volume 92 fL (80-94); Mean Platelet Volume 7.9 fL (7.4-10.4); Nucleated Red Blood Cells % 0.1; Platelet Count 226 10^3/uL (150-450); Red Blood Count 4.82 10^6 /uL (4.18-5.48); Red Cell Distribution Width 13 % (10-15); White Blood Count 7.1 10^3/uL (3.5-10.8)
[2019-02-24 13:27] LABS: ALT 29 U/L (7-52); AST 21 U/L (13-39); Albumin 4.3 g/dL (3.2-5.2); Albumin/Globulin Ratio 1.8 (1-3); Alkaline Phosphatase 86 U/L (34-104); Anion Gap 7 mmol/L (2-11); BUN/Creatinine Ratio 16.2 (8-20); Blood Urea Nitrogen 21 mg/dL (6-24); CO2 Carbon Dioxide 25 mmol/L (22-32); Calcium 9.3 mg/dL (8.6-10.3); Chloride 104 mmol/L (101-111); EGFR African American 69.3 (>60); EGFR Non-African American 57.3 (>60); Globulin 2.4 g/dL (2-4); Glucose 110 mg/dL (70-100); Potassium 4.1 mmol/L (3.5-5.0); Sodium 136 mmol/L (135-145); Total Protein 6.7 g/dL (6.4-8.9)
[2019-02-24 13:28] LABS: Urine Appearance Cloudy; Urine Bacteria Absent (Absent); Urine Bilirubin Negative (Negative); Urine Blood Negative (Negative); Urine Color Yellow; Urine Glucose Negative (Negative); Urine Ketones Negative (Negative); Urine Nitrite Negative (Negative); Urine Protein Negative (Negative); Urine Red Blood Cell Absent (Absent); Urine Specific Gravity 1.005 (1.010-1.030); Urine Urobilinogen Negative (Negative); Urine White Blood Cell 2+(11-20/hpf) (Absent)
[2019-02-24 13:39] LABS: Acetaminophen < 15 mcg/mL; Alcohol < 10 mg/dL (<10); Salicylate < 2.50 mg/dL (<30)
[2019-02-24 13:41] LABS: Urine Benzodiazepine Screen None Detected (None Detect); Urine Opiates Screen None Detected (None Detect)
[2019-02-24 13:54] LABS: TSH (Thyroid Stimulating Horm) 1.23 mcIU/mL (0.34-5.60)
[2019-02-24] MEDS ORDERED: Acetaminophen TAB* 325 MG PO PRN (14:23)
[2019-02-24] MEDS ORDERED: Cetirizine* 10 MG TAB PO PRN (14:24)
[2019-02-24] MEDS ORDERED: QUEtiapine TAB* 25 MG PO PRN (14:24)
[2019-02-24] MEDS ORDERED: Dicyclomine CAP* 10 MG PO PRN (14:24)
[2019-02-24] MEDS ORDERED: Ergocalciferol CAP* 50000 UNIT PO SCH (15:00)
[2019-02-24] MEDS: Ziprasidone CAP* 80 MG PO SCH (17:25)
[2019-02-24] MEDS: Prazosin CAP* 1 MG PO SCH (20:32)
[2019-02-24] MEDS: cloNIDine TAB* 0.1 MG PO SCH (20:33)
[2019-02-24] MEDS: Famotidine TAB* 20 MG PO SCH (20:33)
[2019-02-24] MEDS: Atorvastatin* 20 MG TAB PO SCH (20:33)
[2019-02-24] MEDS: Zolpidem TAB* 5 MG PO PRN (20:34)
[2019-02-25] MEDS: Pantoprazole TAB * 40 MG TAB PO SCH (08:24)
[2019-02-25] MEDS: Multivitamins/Minerals TAB PO SCH (08:24)
[2019-02-25] MEDS: Ziprasidone CAP* 80 MG PO SCH ×2 (08:24→16:26)
[2019-02-25] MEDS: Topiramate TAB(*) 100 MG PO SCH (08:24)
[2019-02-25] MEDS: DULoxetine DR CAP* 60 MG CAP.DR PO SCH (08:24)
[2019-02-25] MEDS: DULoxetine DR CAP* 30 MG CAP.DR PO SCH (08:24)
[2019-02-25] MEDS: Doxazosin TAB* 2 MG PO SCH (08:25)
[2019-02-25] MEDS: Famotidine TAB* 20 MG PO SCH ×2 (08:25→20:50)
[2019-02-25] MEDS: Levothyroxine TAB* 50 MCG TAB PO SCH (09:38)
[2019-02-25] MEDS: Al Hydrox/Mg Hydrox/Simet LIQ* 30 ML UDC PO PRN (10:34)
[2019-02-25] MEDS: Nicotine* 2MG (FRUIT FLAVOR) GUM PO PRN (16:27)
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
[2019-02-25] MEDS: QUEtiapine TAB* 25 MG PO PRN (20:50)
[2019-02-25] MEDS: Atorvastatin* 20 MG TAB PO SCH (20:50)
[2019-02-25] MEDS: Prazosin CAP* 1 MG PO SCH (20:51)
[2019-02-25] MEDS: cloNIDine TAB* 0.1 MG PO SCH (20:51)
[2019-02-25] MEDS: Zolpidem TAB* 5 MG PO PRN (20:53)
[2019-02-26] MEDS: Ziprasidone CAP* 80 MG PO SCH ×2 (09:00→17:25)
[2019-02-26] MEDS: Famotidine TAB* 20 MG PO SCH ×2 (09:00→20:41)
[2019-02-26] MEDS: Multivitamins/Minerals TAB PO SCH (09:00)
[2019-02-26] MEDS: Topiramate TAB(*) 100 MG PO SCH (09:00)
[2019-02-26] MEDS: DULoxetine DR CAP* 30 MG CAP.DR PO SCH (09:00)
[2019-02-26] MEDS: DULoxetine DR CAP* 60 MG CAP.DR PO SCH (09:00)
[2019-02-26] MEDS: Doxazosin TAB* 2 MG PO SCH (09:00)
[2019-02-26] MEDS: Pantoprazole TAB * 40 MG TAB PO SCH (09:00)
[2019-02-26] MEDS: Levothyroxine TAB* 50 MCG TAB PO SCH (09:03)
[2019-02-26 09:13] LABS: HDL Cholesterol 19.6 mg/dL
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
[2019-02-26] MEDS: Nicotine* 2MG (FRUIT FLAVOR) GUM PO PRN (17:26)
[2019-02-26] MEDS: QUEtiapine TAB* 25 MG PO PRN (20:39)
[2019-02-26] MEDS: cloNIDine TAB* 0.1 MG PO SCH (20:40)
[2019-02-26] MEDS: Prazosin CAP* 1 MG PO SCH (20:40)
[2019-02-26] MEDS: Zolpidem TAB* 5 MG PO PRN (20:40)
[2019-02-26] MEDS: Atorvastatin* 20 MG TAB PO SCH (20:41)
[2019-02-27] MEDS: Levothyroxine TAB* 50 MCG TAB PO SCH (06:18)
[2019-02-27] MEDS: Pantoprazole TAB * 40 MG TAB PO SCH (08:36)
[2019-02-27] MEDS: Ziprasidone CAP* 80 MG PO SCH ×2 (08:36→18:55)
[2019-02-27] MEDS: DULoxetine DR CAP* 30 MG CAP.DR PO SCH (08:37)
[2019-02-27] MEDS: Famotidine TAB* 20 MG PO SCH ×2 (08:37→20:02)
[2019-02-27] MEDS: DULoxetine DR CAP* 60 MG CAP.DR PO SCH (08:37)
[2019-02-27] MEDS: Multivitamins/Minerals TAB PO SCH (08:37)
[2019-02-27] MEDS: Doxazosin TAB* 2 MG PO SCH (08:37)
[2019-02-27] MEDS: Topiramate TAB(*) 100 MG PO SCH (08:38)
[2019-02-27] MEDS: cloNIDine TAB* 0.1 MG PO SCH (20:01)
[2019-02-27] MEDS: Atorvastatin* 20 MG TAB PO SCH (20:02)
[2019-02-27] MEDS: Prazosin CAP* 1 MG PO SCH (20:02)
[2019-02-27] MEDS: QUEtiapine TAB* 25 MG PO PRN (20:36)
[2019-02-27] MEDS: Zolpidem TAB* 5 MG PO PRN (20:37)
[2019-02-28] MEDS: Levothyroxine TAB* 50 MCG TAB PO SCH (06:00)
[2019-02-28] MEDS: Pantoprazole TAB * 40 MG TAB PO SCH (08:32)
[2019-02-28] MEDS: Ziprasidone CAP* 80 MG PO SCH (08:32)
[2019-02-28] MEDS: Topiramate TAB(*) 100 MG PO SCH (08:33)
[2019-02-28] MEDS: Multivitamins/Minerals TAB PO SCH (08:33)
[2019-02-28] MEDS: Doxazosin TAB* 2 MG PO SCH (08:33)
[2019-02-28] MEDS: DULoxetine DR CAP* 60 MG CAP.DR PO SCH (08:33)
[2019-02-28] MEDS: Famotidine TAB* 20 MG PO SCH (08:33)
[2019-02-28] MEDS: DULoxetine DR CAP* 30 MG CAP.DR PO SCH (08:33)
[2019-02-28] MEDS: Al Hydrox/Mg Hydrox/Simet LIQ* 30 ML UDC PO PRN (09:39)
[2019-02-28 09:44] VITALS: BP 129/72
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
== END 2019-02-28 13:30 | disposition home or self-care (01) | DRG 882 ==
LOC: ED 12:21 → BSU 14:23
PROVIDERS: ADMIT Psychiatry & Neurology Psychiatry; ATTEND Psychiatry & Neurology Psychiatry
DX: F43.10 Post-traumatic stress disorder, unspecified (principal); R45.851 Suicidal ideations; F32.9 Major depressive disorder, single episode, unspecified; F60.9 Personality disorder, unspecified; G40.909 Epilepsy, unspecified, not intractable, without status epilepticus; J45.909 Unspecified asthma, uncomplicated; K21.9 Gastro-esophageal reflux disease without esophagitis; E03.9 Hypothyroidism, unspecified; F60.89 Other specific personality disorders; E78.00 Pure hypercholesterolemia, unspecified; E78.5 Hyperlipidemia, unspecified; K58.9 Irritable bowel syndrome, unspecified; F17.210 Nicotine dependence, cigarettes, uncomplicated; F41.0 Panic disorder [episodic paroxysmal anxiety]; Z90.49 Acquired absence of other specified parts of digestive tract; Z82.49 Family history of ischemic heart disease and other diseases of the circulatory system; Z91.5 Personal history of self-harm; Z91.410 Personal history of adult physical and sexual abuse; Z81.8 Family history of other mental and behavioral disorders; Z87.442 Personal history of urinary calculi; Z80.9 Family history of malignant neoplasm, unspecified; Z82.0 Family history of epilepsy and other diseases of the nervous system
CPT/HCPCS: 36415; 80053; 80061; 80307; 80320; 80329; 81003; 81015; 83036; 83721; 84443; 85025; 87086; 87088; 99222; 99231; 99238; 99283; A9270-GY; G0480

== ENCOUNTER 2019-05-15 12:32 | Emergency (ER) | payer MEDICARE, MEDICAID ==
--- OUTSIDE RECORDS SUMMARY | 2019-05-15 12:41 | XMS REPORT | Summary of Care ---
:1965 Author Organization [facility] Address [address] [facility] [place] [address] Care Team Providers Name Role Phone Tran Clayton MD Primary Care Provider Reason for Visit Reason Comments Abdominal Pain New pt. referred by PCP for abdominal pain & burning. Encounter Details Date Type Department Care Team Description 04/20/2019 Office Visit Riki Hodgeon, Epigastric pain Gastroenterology/Hepa Tova Hernandez NP (Primary Dx) tology 1 [facility] [address] [facility] [place] [address] [place] [address] Allergies Active Allergy Reactions Severity Noted Date Comments Environmental Unknown Reaction 03/25/2019 documented as of this encounter (statuses as of 04/20/2019) Medications Medication Sig Dispensed Refills Start Date End Date Status cloNIDine (CATAPRES) Take 0.2 mg by 0 Active 0.2 MG Oral Tab mouth DAILY. 1 tablet at bedtime topiramate (TOPAMAX) Take 100 mg by 0 Active 100 MG Oral Tab mouth DAILY. acetaminophen Take 500 mg by 0 Active (ACETAMINOPHEN EXTRA mouth EVERY STRENGTH) 500 MG Oral EIGHT HOURS Tab NEEDED. 2 tablet every 8 hours PRN duloxetine (CYMBALTA) Take 30 mg by 0 Active 30 MG Oral CAPSULE mouth. [address] Part daily PARTICLES ziprasidone (GEODON) Take 80 mg by 0 Active 80 MG Oral Cap mouth TWICE DAILY. atorvastatin Take by mouth 0 Active (LIPITOR) 20 MG Oral DAILY. Tab doxazosin (CARDURA) 4 Take 4 mg by 0 Active MG Oral Tab mouth DAILY. 1 tablet at bedtime dicyclomine (BENTYL) Take 20 mg by 0 Active 20 MG Oral Tab mouth. 1 tablet twice daily PRN Cetirizine HCl 10 MG Take by mouth 0 Active Oral Cap DAILY NEEDED. levothyroxine Take 50 mcg by 0 Active (SYNTHROID) 50 MCG mouth BEFORE Oral Tab BREAKFAST. prazosin (MINIPRESS) Take 2 mg by 0 Active 1 MG Oral Cap mouth EVERY BEDTIME. Calcium Carbonate Take by mouth. 0 Active Antacid (ANTACID MAXIMUM PO) Omeprazole 40 MG Oral Take 1 Cap by 0 Active CAPSULE DELAYED mouth DAILY. RELEASE duloxetine (CYMBALTA) Take 60 mg by 0 Active 60 MG Oral CAPSULE mouth DAILY. ENTERIC COATED PARTICLES famotidine (PEPCID) Take 20 mg by 0 Active 20 MG Oral Tab mouth TWICE DAILY. Quetiapine Fumarate Take by mouth 0 Active (SEROQUEL) 50 MG Oral THREE TIMES Tab DAILY NEEDED. prochlorperazine Take 5 mg by 0 Active (COMPAZINE) 5 MG Oral mouth EVERY SIX Tab HOURS NEEDED for Nausea/Vomiting . zolpidem (AMBIEN) 10 Take 10 mg by 0 Active MG Oral Tab mouth EVERY BEDTIME. Vitamin D, Take 50,000 0 04/20/20 Discontinued Ergocalciferol, Units by mouth. 19 (ERGOCALCIFEROL) Take one 69988 units Oral Cap capsule by mouth once a month zolpidem (AMBIEN) 5 Take 5 mg by 0 04/20/20 Discontinued MG Oral Tab mouth. 1 tab at 19 bedtime Multiple Take by mouth. 0 04/20/20 Discontinued Vitamins-Minerals 19 (MULTIVITAMIN ADULT PO) quetiapine (SEROQUEL) Take 25 mg by 0 04/20/20 Discontinued 25 MG Oral Tab mouth THREE 19 TIMES DAILY. 1 tablet three times daily PRN Lidocaine 2 % Apply by Apply 0 04/20/20 Discontinued externally Gel externally 19 route. Apply gel four times each day Probiotic Product Take by mouth. 0 04/20/20 Discontinued (PROBIOTIC-10) Oral 19 Cap Omeprazole delayed Take 20 mg by 0 04/20/20 Discontinued rel cap 20 MG Oral mouth. 19 CAPSULE DELAYED RELEASE famotidine (PEPCID) Take 20 mg by 0 04/20/20 Discontinued 20 MG Oral Tab mouth TWICE 19 DAILY. Lactase Take by mouth. 0 04/20/20 Discontinued (DAIRY-DIGESTIVE) Chew 2 to 4 19 9000 units Oral Chew tablets before Tab a meal containing dairy products sulfamethoxazole-trim Take 1 Tab by 0 04/20/20 Discontinued ethoprim (BACTRIM DS) mouth TWICE 19 800-160 MG Oral Tab DAILY. documented as of this encounter (statuses as of 04/20/2019) Active Problems Problem Noted Date Chronic abdominal pain 03/25/2019 Metabolic syndrome 03/25/2019 Depression 03/25/2019 PTSD (post-traumatic stress disorder) 03/25/2019 Personality disorder 03/25/2019 Seizures 03/25/2019 Smoker 03/25/2019 Gallstones 03/25/2019 History of alcohol abuse 03/25/2019 Overview: Goes to 5x a week Vitamin D deficiency 03/25/2019 Hyperglyceridemia, pure 03/25/2019 Hydronephrosis, left 03/25/2019 Anxiety 03/25/2019 Bilateral amblyopia 03/25/2019 Hypothyroidism 03/25/2019 Kidney disease 03/25/2019 Sleep apnea 03/25/2019 Bladder disorder 03/25/2019 Benign prostatic disease 03/25/2019 Neurogenic bladder 03/25/2019 Ventral hernia 03/25/2019 Hypercholesterolemia 03/25/2019 Sarcoidosis 03/25/2019 History of lung biopsy 03/25/2019 documented as of this encounter (statuses as of 04/20/2019) Social History Tobacco Use Types Packs/Day Years Used Date Current Every Day Smoker 0.5 Smokeless Tobacco: Never Used Alcohol Use Drinks/Week oz/Week Comments Not Currently Sex Assigned at Date Recorded Not on file Job Start Date Occupation Industry Not on file Not on file Not on file Travel History Travel Start Travel End No recent travel history available. documented as of this encounter Last Filed Vital Signs Vital Sign Reading Time Taken Comments Blood Pressure 132/76 04/20/2019 10:08 AM EDT Pulse 78 04/20/2019 10:08 AM EDT Temperature 36.5 04/20/2019 10:08 AM EDT C (97.7 F) Respiratory Rate - - Oxygen Saturation - - Inhaled Oxygen Concentration - - Weight 92.1 kg (203 lb) 04/20/2019 10:08 AM EDT Height 162.6 cm (5' 4") 04/20/2019 10:08 AM EDT Body Mass Index 34.84 04/20/2019 10:08 AM EDT documented in this encounter Patient Instructions Patient InstructionsTova Batres NP - 04/20/2019 10:00 AM EDT1. Will need records from Dr. Gilbert's office 2. Schedule upper GI series at [facility] 3. Continue the Omeprazole daily, stop the Dicyclomine 4. Continue to avoid irritating foods, spicy, acidic and high fat foods 5. Continue to drink 8 glasses of water daily 6. Follow up after the above Thank you for choosing the [facility] for your needs today! -Tova Batres N.P. , Please call if you need to cancel or change your appt. time. Thank you for choosing [facility] for your health care needs, and for consulting with [facility] today. You may receive a survey following this visit, or after an upcoming hospital stay. As easy as it is to feel overloaded with surveys, we are required to send them out randomly and they do provide important feedback so that we may serve your needs in the best way. Please do take the few minutes required to complete the survey if you receive one. We get them too, after seeing the doctor, and they only take a few minutes to complete. documented in this encounter Progress Notes Tova Batres NP - 04/20/2019 10:00 AM EDT PATIENT: Krzysztof Banegas : 1965 DATE OF SERVICE: 04/20/2019 REFERRING PRACTITIONER: Chelsie Martinez PRIMARY CARE PROVIDER: Tran Clayton CHIEF COMPLAINT: Chief Complaint Patient presents with Abdominal Pain New pt. referred by PCP for abdominal pain & burning. Subjective HISTORY OF PRESENT ILLNESS: Krzysztof Banegas is a 53-y.o. male who presents for a consultation with abdominal pain. Pain is located in the epigastric without radiation. The pain is described as dull, worse after eating. Onset was vague several weeks ago. Symptoms have been intermittent. Aggravating factors: eating. Alleviating factors: none. Associated symptoms: nausea. The patient denies anemia, anorexia, arthralgias, belching, bloating, chills, constipation, diarrhea, dysuria, fever, flatus, frequency, headache, hematochezia, hematemesis, hematuria, malnutrition, melena, myalgias, sweats and weight loss. History reviewed. No pertinent past medical history. History reviewed. No pertinent surgical history. Family History Problem Relation Age of Onset Hypertension Mother Hypertension Father Heart Disease Sister Depression/Depressed Sister Breast Cancer Paternal Grandmother Current Outpatient Medications Medication Sig acetaminophen (ACETAMINOPHEN EXTRA STRENGTH) 500 MG Oral Tab Take 500 mg by mouth EVERY EIGHTHOURS NEEDED. 2 tablet every 8 hours PRN atorvastatin (LIPITOR) 20 MG Oral Tab Take by mouth DAILY. Calcium Carbonate Antacid (ANTACID MAXIMUM PO) Take by mouth. Cetirizine HCl 10 MG Oral Cap Take by mouth DAILY NEEDED. cloNIDine (CATAPRES) 0.2 MG Oral Tab Take 0.2 mg by mouth DAILY. 1 tablet at bedtime dicyclomine (BENTYL) 20 MG Oral Tab Take 20 mg by mouth. 1 tablet twice daily PRN doxazosin (CARDURA) 4 MG Oral Tab Take 4 mg by mouth DAILY. 1 tablet at bedtime duloxetine (CYMBALTA) 30 MG Oral CAPSULE ENTERIC COATED PARTICLES Take 30 mg by mouth. 1 CapsDR Part daily duloxetine (CYMBALTA) 60 MG Oral CAPSULE ENTERIC COATED PARTICLES Take 60 mg by mouth DAILY. famotidine (PEPCID) 20 MG Oral Tab Take 20 mg by mouth TWICE DAILY. levothyroxine (SYNTHROID) 50 MCG Oral Tab Take 50 mcg by mouth BEFORE BREAKFAST. Omeprazole 40 MG Oral CAPSULE DELAYED RELEASE Take 1 Cap by mouth DAILY. prazosin (MINIPRESS) 1 MG Oral Cap Take 2 mg by mouth EVERY BEDTIME. prochlorperazine (COMPAZINE) 5 MG Oral Tab Take 5 mg by mouth EVERY SIX HOURS NEEDED for Nausea/Vomiting. Quetiapine Fumarate (SEROQUEL) 50 MG Oral Tab Take by mouth THREE TIMES DAILY NEEDED. topiramate (TOPAMAX) 100 MG Oral Tab Take 100 mg by mouth DAILY. ziprasidone (GEODON) 80 MG Oral Cap Take 80 mg by mouth TWICE DAILY. zolpidem (AMBIEN) 10 MG Oral Tab Take 10 mg by mouth EVERY BEDTIME. No current facility-administered medications for this visit. Allergies Allergen Reactions Environmental Unknown Reaction Social History Socioeconomic History Marital status: Single Spouse name: Not on file Number of children: Not on file Years of education: Not on file Highest education level: Not on file Occupational History Not on file Social Needs Financial resource strain: Not on file Food insecurity: Worry: Not on file Inability: Not on file Transportation needs: Medical: Not on file Non-medical: Not on file Tobacco Use Smoking status: Current Every Day Smoker Years: 0.50 Smokeless tobacco: Never Used Substance and Sexual Activity Alcohol use: Not Currently Drug use: Not on file Sexual activity: Not on file Lifestyle Physical activity: Days per week: Not on file Minutes per session: Not on file Stress: Not on file Relationships Social connections: Talks on phone: Not on file Gets together: Not on file Attends congregational service: Not on file Active member of club or organization: Not on file Attends meetings of clubs or organizations: Not on file Relationship status: Not on file Intimate partner violence: Fear of current or ex partner: Not on file Emotionally abused: Not on file Physically abused: Not on file Forced sexual activity: Not on file Other Topics Concern Not on file Social History Narrative Not on file REVIEW OF SYSTEMS: All remaining review of systems was negative except for as noted in the history of present illness/subjective. Objective PHYSICAL EXAMINATION: VITALS: BP 132/76 | Pulse 78 | Temp 97.7 F (36.5 C) | Ht 5' 4" ( 1.626 m) | Wt 203 lb (92.1 kg) | BMI 34.84 kg/m Body mass index is 34.84 kg/m. GENERAL: alert, oriented, no acute distress. HEENT: No scleral icterus, MMM Psych: Affect normal Neck: no lymphadenopathy LUNGS: clear to auscultation bilaterally. HEART: regular rhythm, no murmurs, no gallops, no rubs. ABDOMEN: general exam: soft, non-tender, non-distended, obese, normal active bowel sounds, Montalvo'ssign negative. Extrmities: no edema Skin: clear Neuro: gait normal, a&o x 3 RECTAL: exam deferred. IMPRESSION: ICD-9-CM ICD-10-CM 1. Epigastric pain 789.06 R10.13 XR UPPER GI SERIES WITH ESOPHAGUS W/ KUB Plan PLAN: Patient Instructions 1. Will need records from Dr. Gilbert's office 2. Schedule upper GI series at [facility] 3. Continue the Omeprazole daily, stop the Dicyclomine 4. Continue to avoid irritating foods, spicy, acidic and high fat foods 5. Continue to drink 8 glasses of water daily 6. Follow up after the above Thank you for choosing the [facility] for your needs today! -Tova Batres N.P. , Please call if you need to cancel or change your appt. time. Thank you for choosing [facility] for your health care needs, and for consulting with [facility] today. You may receive a survey following this visit, or after an upcoming hospital stay. As easy as it is to feel overloaded with surveys, we are required to send them out randomly and they do provide important feedback so that we may serve your needs in the best way. Please do take the few minutes required to complete the survey if you receive one. We get them too, after seeing the doctor, and they only take a few minutes to complete. Author: Tova Batres NP 04/20/2019 10:45 documented in this encounter Plan of Treatment Name Type Priority Associated Diagnoses Order Schedule XR UPPER GI SERIES WITH Imaging Routine Epigastric pain Expected: 2018, ESOPHAGUS W/ KUB Expires: 04/19/2020 Health Maintenance Due Date Last Done Comments MEDICARE ANNUAL WELLNESS VISIT 1965 PNEUMOCOCCAL 0-64 YRS (1 of - 11/02/1969 PPSV23) DEPRESSION SCREENING 1975 HIV SCREENING 11/02/1978 DIABETES SCREENING 11/02/1981 HEPATITIS C SCREENING 2003 COLONOSCOPY SCREENING 11/02/2013 ZOSTER IMMUNIZATION SERIES (1 of 11/02/2013 2) INFLUENZA VACCINE (#1) 2019 LIPID DISORDER SCREENING 03/25/2024 03/25/2019 HPV IMMUNIZATION SERIES Aged Out No longer eligible based on patient's age to complete this topic MENINGOCOCCAL VACCINE IMM Aged Out No longer eligible based on patient's age to complete this topic documented as of this encounter Results Not on filedocumented in this encounter Visit Diagnoses Diagnosis Epigastric pain - Primary Abdominal pain, epigastric documented in this encounter Insurance Payer Benefit Plan / Subscriber ID Effective Dates Phone Address Type Group MEDICARE MEDICARE PART A xxxxxxxxxxx 2010-Present Medicare & B MEDICAID [facility] xxxxxxxx 2019-Present Medicaid [place] MEDICAID [address] [place] [address] documented as of this encounter
[2019-05-15 12:46] VITALS: BP 123/72
--- NOTE | 2019-05-15 13:33 | UC ---
Back Pain HPI - HPI Summary HPI Summary: 53-year-old male presents with 5 day history of low back pain. States pain is constant, sharp, and nonradiating. Worsens with bending and twisting. Has been taking acetaminophen with minimal relief in pain. Denies fever, chills, abdominal pain, nausea, vomiting, dysuria, frequency, urgency, hematuria, numbness, tingling, weakness of the lower extremities, loss of bowel or bladder control. - History of Current Complaint Chief Complaint: UCBackPain Stated Complaint: BACK PAIN Time Seen by Provider: 05/15/19 13:06 Hx Obtained From: Patient Pain Intensity: 7 - Allergies/Home Medications Allergies/Adverse Reactions: Allergies Allergy/AdvReac Type Severity Reaction Status Date / Time No Known Allergies Allergy Verified 05/15/19 12:47 Home Medications: Home Medications Albuterol HFA INHALER* [Ventolin HFA Inhaler*] 2 puff INH Q4H PRN 05/15/19 [ History Confirmed 05/15/19] Prochlorperazine TAB* [Compazine Tab*] 5 mg PO BID PRN 05/15/19 [History Confirmed 05/15/19] PMH/Surg Hx/FS Hx/Imm Hx Endocrine History: Hypothyroidism GI/ History: Gastroesophageal Reflux, Other - SBO Neurological History: Seizures Psychological History: Anxiety, Depression, Post Traumatic Stress Disorder, Other - Personality disorder, learning disabiity Other History Of: Negative For: Anticoagulant Therapy - Surgical History Surgical History: Yes Surgery Procedure, Year, and Place: 2008 APPENDECTOMY, [facility] [place] CYST REMOVED FROM BLADDER, [facility] [place] CHOLECYSTECTOMY-12/2012 - Family History Known Family History: Positive: Cardiac Disease, Hypertension - Father, Seizure Disorder - sister, Other - cancer - Social History Occupation: Disabled Lives: [employer] Alcohol Use: None Alcohol Amount: none since 2011 Substance Use Type: None Substance Use Comment - Amount & Last Used: pt states he has not used any drugs since 2011. Smoking Status (MU): Heavy Every Day Tobacco Smoker Type: Cigarettes Length of Time of Smoking/Using Tobacco: 20YRS Have You Smoked in the Last Year: No When Did the Patient Quit Smoking/Using Tobacco: 2012 Household Exposure Type: Cigarettes - Immunization History Most Recent Influenza Vaccination: Fall 2016 Most Recent Tetanus Shot: Unsure Most Recent Pneumonia Vaccination: Never Review of Systems All Other Systems Reviewed And Are Negative: Yes Constitutional: Negative: Fever, Chills Skin: Negative: Rash Respiratory: Negative: Shortness Of Breath, Cough Cardiovascular: Negative: Palpitations, Chest Pain Gastrointestinal: Negative: Abdominal Pain, Vomiting, Nausea Genitourinary: Negative: Dysuria, Hematuria, Frequency, Urgency Motor: Negative: Weakness Neurovascular: Negative: Decreased Sensation Musculoskeletal: Positive: Other: - See HPI Neurological: Negative: Paresthesia, Numbness Is Patient Immunocompromised?: No Physical Exam - Summary Physical Exam Summary: GENERAL APPEARANCE: Alert and cooperative chronically ill appearing, obese, adult male who appears to be in no acute distress. CARDIAC: Normal S1 and S2. No S3, S4 or murmurs. Rhythm is regular. There is no peripheral edema, cyanosis or pallor. Extremities are warm and well perfused. Capillary refill is less than 2 seconds. Peripheral pulses intact. LUNGS: Clear to auscultation without rales, rhonchi, wheezing or diminished breath sounds. ABDOMEN: Positive bowel sounds. Soft, nondistended, nontender. No guarding or rebound. No masses or hepatosplenomegally. MUSKULOSKELETAL: ROM intact to all extremities. No joint erythema or tenderness. Normal muscular development. Normal gait. BACK: Examination of the spine reveals no spinal deformity, tenderness, decreased range of motion, or muscular spasm. NEUROLOGICAL: Strength and sensation symmetric and intact to lower extremities. SKIN: Skin normal color, texture and turgor with no lesions or eruptions. Triage Information Reviewed: Yes Vital Signs: Initial Vital Signs Temp 98.3 F 05/15/19 12:43 Pulse 97 05/15/19 12:43 Resp 16 05/15/19 12:43 BP 123/72 05/15/19 12:43 Pulse Ox 100 05/15/19 12:43 Vital Signs Reviewed: Yes Back Pain Course/Dx - Course Course Of Treatment: 53-year-old male presents with 5 day history of low back pain. States pain is constant, sharp, and nonradiating. Worsens with bending and twisting. Has been taking acetaminophen with minimal relief in pain. Denies fever, chills, abdominal pain, nausea, vomiting, dysuria, frequency, urgency, hematuria, numbness, tingling, weakness of the lower extremities, loss of bowel or bladder control. Afebrile. Vital signs stable. Patient is exam was overall unremarkable. A [id number] urinalysis was obtained which showed 1+ leukocyte esterase and was otherwise normal. Reviewed results with the patient and discussed that without symptoms of UTI I suspect that his back pain is most likely musculoskeletal in origin. A urine culture is pending and we will treat should to suggest any urinary infection. Patient is to continue with Tylenol as needed for pain. He was also provided a prescription for cyclobenzaprine 5 mg 1 tablet every 8 hours as needed for severe pain or spasm as well as recommended heat therapy. He is to follow-up with his primary care provider in 3-5 days if symptoms are not improving. Anticipatory guidance and warning symptoms were reviewed with the patient. Verbalizes understanding of plan of care. - Differential Dx/Diagnosis Differential Diagnosis/HQI/PQRI: Herniated Disc, Renal Colic, Strain Provider Diagnosis: Acute low back pain Discharge ED - Sign-Out/Discharge Documenting (check all that apply): Patient Departure All imaging exams completed and their final reports reviewed: No Studies - Discharge Plan Condition: Stable Disposition: HOME Prescriptions: Cyclobenzaprine HCl 5 mg PO Q8HR PRN #15 tablet PRN Reason: Spasms - Back Patient Education Materials: Acute Low Back Pain (ED) Referrals: Chelsie Martinez NP [Primary Care Provider] - 3 Days (If no improvement) Additional Instructions: A urine test performed in the clinic today showed trace white blood cell however with you not having symptoms I do not feel that this is likely a urinary tract infection. We will send the urine for culture to see if any bacteria grow out and we'll contact you if this indicates any infection. With low back pain you should try to remain as active as possible. Avoid heavy lifting, strenuous activities, or activities that cause pain. Continue taking acetaminophen (Tylenol) according to directions as needed for pain. Take cyclobenzaprine 5 mg 1 tab every 8 hours as needed for severe pain or spasm. Use a heating pad to the affected area for 15-20 minutes 3-4 times a day. Follow up with your primary care provider in 3-5 days if symptoms do not improve. Seek immediate medical attention in the emergency room if you develop a fever greater than 100.5 F, have severe back pain that is not managed with the medications, have difficulty walking, develop numbness, tingling, or weakness of the legs, lose control of her bowel or bladder, or have any worsening of symptoms. - Billing Disposition and Condition Condition: STABLE Disposition: Home
--- NOTE | 2019-05-18 15:00 | UC ---
- Progress Note Progress Note: Urine culture final with Aerococcus Viridans Was not treated. Rx sent for amoxicillin Course/Dx - Diagnoses Provider Diagnoses: Acute low back pain Discharge ED - Sign-Out/Discharge Documenting (check all that apply): Post-Discharge Follow Up All imaging exams completed and their final reports reviewed: No Studies - Discharge Plan Condition: Stable Disposition: HOME Prescriptions: Amoxicillin PO (*) [Amoxicillin 875 MG (*)] 875 mg PO BID #10 tab Cyclobenzaprine HCl 5 mg PO Q8HR PRN #15 tablet PRN Reason: Spasms - Back Patient Education Materials: Acute Low Back Pain (ED) Referrals: Chelsie Martinez NP [Primary Care Provider] - 3 Days (If no improvement) Additional Instructions: A urine test performed in the clinic today showed trace white blood cell however with you not having symptoms I do not feel that this is likely a urinary tract infection. We will send the urine for culture to see if any bacteria grow out and we'll contact you if this indicates any infection. With low back pain you should try to remain as active as possible. Avoid heavy lifting, strenuous activities, or activities that cause pain. Continue taking acetaminophen (Tylenol) according to directions as needed for pain. Take cyclobenzaprine 5 mg 1 tab every 8 hours as needed for severe pain or spasm. Use a heating pad to the affected area for 15-20 minutes 3-4 times a day. Follow up with your primary care provider in 3-5 days if symptoms do not improve. Seek immediate medical attention in the emergency room if you develop a fever greater than 100.5 F, have severe back pain that is not managed with the medications, have difficulty walking, develop numbness, tingling, or weakness of the legs, lose control of her bowel or bladder, or have any worsening of symptoms. - Billing Disposition and Condition Condition: STABLE Disposition: Home
== END 2019-05-15 13:51 | disposition home or self-care (01) ==
LOC: UCEAST 12:32
DX: M54.5 Low back pain (principal); F41.9 Anxiety disorder, unspecified; F17.210 Nicotine dependence, cigarettes, uncomplicated; Z79.899 Other long term (current) drug therapy
CPT/HCPCS: 81003; 87077; 87086; 99212; G0463

== ENCOUNTER 2019-06-28 22:07 | Emergency (ER) | payer MEDICARE, MEDICAID ==
--- NOTE | 2019-06-28 22:14 | ED ---
HPI Chest Pain - HPI Summary HPI Summary: Patient is a 53 y/o M presenting to the ED via EMS for a chief complaint of diffuse non-radiating chest pain. Patient is a resident of [facility]. The chest pain initially began on 06/27/19 and was intermittent, but on 06/28/19, the chest pain became constant. Patient describes the chest pain as aching. Patient admits nausea, but denies SOB, diaphoresis, or vomiting. Patient denies similar symptoms in the past. Patient denies having a cardiac workup in the past including a cardiac stress test. Patient has a PMHx of HLD, hypothyroidism, and seizure disorder. Patient admits tobacco use. Medications reviewed. - History of Current Complaint Chief Complaint: EDChestPainROMI Time Seen by Provider: 06/28/19 22:08 Hx Obtained From: Patient Onset/Duration: Started Hours Ago, Atraumatic, Still Present Timing: Constant - On 06/28/19, Intermittent - On 06/27/19 Initial Severity: Moderate Current Severity: Moderate Pain Intensity: 5 Pain Scale Used: 0-10 Numeric Chest Pain Location: Diffuse Chest Pain Radiates: No Character: Dull/Aching Aggravating Factor(s): Nothing Alleviating Factor(s): Nothing Associated Signs and Symptoms: Positive: Chest Pain - Diffuse, non-radiating, Nausea. Negative: Shortness of Breath, Diaphoresis, Vomiting - Additional Pertinent History Primary Care Physician: LORRI - Allergy/Home Medications Allergies/Adverse Reactions: Allergies Allergy/AdvReac Type Severity Reaction Status Date / Time No Known Allergies Allergy Verified 06/28/19 22:11 PMH/Surg Hx/FS Hx/Imm Hx Previously Healthy: Yes Endocrine/Hematology History: Reports: Hx Thyroid Disease Denies: Hx Anticoagulant Therapy, Hx Diabetes, Hx Systemic Lupus Erythematosus, Hx Anemia Cardiovascular History: Reports: Hx Hypercholesterolemia, Other Cardiovascular Problems/Disorders - HYPERLIPIDEMIA Denies: Hx Congestive Heart Failure, Hx Hypertension, Hx Pacemaker/ICD Respiratory History: Reports: Other Respiratory Problems/Disorders - Sarcoidosis Denies: Hx Asthma, Hx Chronic Bronchitis, Hx Chronic Obstructive Pulmonary Disease (COPD) GI History: Reports: Hx Gastroesophageal Reflux Disease, Hx Irritable Bowel, Hx Obstructive Bowel - Small bowel, Other GI Disorders - CYST REMOVED FROM BLADDER , LATE Denies: Hx Ulcer History: Reports: Hx Kidney Stones, Hx Renal Disease - LEFT KIDNEY DECREASE IN FUNCTION, Other Problems/Disorders - HX OF CYST IN THE BLADDER Denies: Hx Benign Prostatic Hyperplasia, Hx Dialysis Musculoskeletal History: Reports: Other Musculoskeletal History - Sarcoidosis Denies: Hx Rheumatoid Arthritis Sensory History: Reports: Hx Contacts or Glasses Denies: Hx Legally Blind, Hx Deafness, Hx Hearing Aid Opthamlomology History: Reports: Hx Contacts or Glasses Denies: Hx Legally Blind EENT History: Denies: Hx Deafness Neurological History: Reports: Hx Developmental Delay, Hx Headaches, Hx Seizures , Other Neuro Impairments/Disorders - "light concussion" Psychiatric History: Reports: Hx Anxiety, Hx Depression, Hx Panic Disorder, Hx Post Traumatic Stress Disorder, Hx Inpatient Treatment, Hx Community Mental Health Tx, Hx Suicide Attempt, Other Psychiatric Issues/Disorders Denies: Hx Attention Deficit Hyperactivity Disorder, Hx Eating Disorder, Hx Schizophrenia, Hx Bipolar Disorder, Hx of Violent Episodes Against Others, Hx Substance Abuse - Cancer History Hx Chemotherapy: No - Surgical History Surgical History: Yes Surgery Procedure, Year, and Place: 2008 APPENDECTOMY, [facility] [place] CYST REMOVED FROM BLADDER, [facility] [place] CHOLECYSTECTOMY-12/2012 Hx Anesthesia Reactions: No - Immunization History Date of Tetanus Vaccine: Unknown Date of Influenza Vaccine: Fall 2013 Infectious Disease History: No Infectious Disease History: Denies: Hx Clostridium Difficile, Hx Hepatitis, Hx Human Immunodeficiency Virus (HIV), Hx of Known/Suspected MRSA, Hx Shingles, Hx Tuberculosis, Hx Known/ Suspected VRE, Hx Known/Suspected VRSA, History Other Infectious Disease, Traveled Outside the [place] in Last 30 Days - Family History Known Family History: Positive: Cardiac Disease, Hypertension - Father, Seizure Disorder - sister, Other - cancer - Social History Occupation: Disabled Lives: Assisted Living Alcohol Use: None Alcohol Amount: none since 2011 Hx Substance Use: Yes Substance Use Type: Reports: None Substance Use Comment - Amount & Last Used: pt states he has not used any drugs since 2011. Hx Tobacco Use: Yes Smoking Status (MU): Heavy Every Day Tobacco Smoker Type: Cigarettes Length of Time of Smoking/Using Tobacco: 20YRS Have You Smoked in the Last Year: No Review of Systems - ROS Summary Review of Systems Summary: Acetaminophen [Acetaminophen Extra Strength] 1,000 mg PO Q8HR PRN 07/13/18 [ History Confirmed 06/28/19] DULoxetine CAP* [Cymbalta CAP*] 30 mg PO DAILY 07/13/18 [History Confirmed ] Omeprazole CAP (NF) [Prilosec CAP* 20 MG] 40 mg PO QAM 07/13/18 [History Confirmed 06/28/19] QUEtiapine TAB* [Seroquel 25 MG TAB*] 50 mg PO TID PRN 07/13/18 [History Confirmed 06/28/19] Zolpidem TAB* [Ambien*] 10 mg PO BEDTIME PRN MDD 5 mg 07/13/18 [History Confirmed 06/28/19] Al Hydrox/Mg Hydrox/Simet LIQ* [Maalox Plus*] 20 ml PO BID PRN 10/21/18 [ History Confirmed 06/28/19] DULoxetine DR CAP* [Cymbalta CAP*] 60 mg PO DAILY 10/21/18 [History Confirmed ] Ziprasidone * [Geodon (generic) *] 80 mg PO BID WITH MEALS 10/21/18 [History Confirmed 06/28/19] Lidocaine 2% JELLY* 1 applic TOPICAL QID jelly 10/26/18 [Rx Confirmed 06/28/19] Atorvastatin* [Lipitor 20 MG*] 20 mg PO 2100 01/25/19 [History Confirmed ] Cetirizine* [ZyrTEC 10 MG TAB*] 10 mg PO DAILY PRN 01/25/19 [History Confirmed 06/28/19] Doxazosin TAB* [Cardura TAB*] 4 mg PO DAILY 01/25/19 [History Confirmed 06/28/19 ] Famotidine TAB* [Pepcid 20 MG TAB*] 20 mg PO BID 01/25/19 [History Confirmed 08/04] Levothyroxine TAB* [Synthroid TAB*] 50 mcg PO QAM 01/25/19 [History Confirmed ] Prazosin CAP* [Minipress CAP*] 2 mg PO BEDTIME 01/25/19 [History Confirmed 06/28] Topiramate TAB(*) [Topamax 100 mg tab] 100 mg PO DAILY 01/25/19 [History Confirmed 06/28/19] cloNIDine TAB* [Catapres 0.1 MG TAB*] 0.2 mg PO BEDTIME 02/24/19 [History Confirmed 06/28/19] Albuterol HFA INHALER* [Ventolin HFA Inhaler*] 2 puff INH Q4H PRN 05/15/19 [ History Confirmed 06/28/19] Cyclobenzaprine HCl 5 mg PO Q8HR PRN #15 tablet 05/15/19 [Rx Confirmed 06/28/19] Prochlorperazine TAB* [Compazine Tab*] 5 mg PO BID PRN 05/15/19 [History Confirmed 06/28/19] Negative: Skin Diaphoresis Positive: Chest Pain - Diffuse, non-radiating Negative: Shortness Of Breath Positive: Nausea. Negative: Vomiting All Other Systems Reviewed And Are Negative: Yes Physical Exam - Summary Physical Exam Summary: General: Well-developed, Well-nourished MALE. No acute distress. HEENT: Normocephalic, Atraumatic. Eyes: Conjuctiva normal, PERRL. Ears: TMs within normal limits. Nares: (-) discharge, (-) erythema. Oropharynx: Clear, mucous membranes moist, (-) exudates. Neck: Soft, FROM, (-) lymphadenopathy, (-) thyromegaly, (-) JVD. Cardiovascular: Normal sinus rhythm, (-) murmur. Lungs: Clear to auscultation bilaterally (-) wheezes, (-) rales, (-) rhonchi. Abdomen: Soft, non-tender, non-distended, (-) organomegaly, normal bowel sounds. Back: (-) CVA tenderness Extremities: No edema. Skin: Warm, dry, (-) rash. Neuro: Alert and oriented x3, no focal deficits. Psychiatric: Mood normal, affect normal. Triage Information Reviewed: Yes Vital Signs On Initial Exam: Initial Vitals Temp Pulse Resp BP Pulse Ox 98.0 F 82 16 141/113 95 06/28/19 22:07 06/28/19 22:07 06/28/19 22:07 06/28/19 22:07 06/28/19 22:07 Vital Signs Reviewed: Yes Procedures - Sedation Patient Received Moderate/Deep Sedation with Procedure: No Diagnostics - Vital Signs Vital Signs Temp Pulse Resp BP Pulse Ox 06/28/19 22:07 98.0 F 82 16 141/113 95 - Laboratory Result Diagrams: 06/28/19 22:39 06/28/19 22:39 Lab Statement: Any lab studies that have been ordered have been reviewed, and results considered in the medical decision making process. - Radiology Chest X-ray Radiology Interpretation Completed By: ED Physician Summary of Radiographic Findings: Chest X-ray IMPRESSION: no acute changes, no obvious infiltrate or pleural effusion. Reviewed and interpreted by Dr. Franco ; pending official radiology report. - EKG 22:05 Cardiac Rate: NL - 77 BPM EKG Rhythm: Sinus Rhythm ST Segment: Normal Ectopy: None Summary of EKG Findings: EKG at 22:05 reveals normal sinus rhythm with rate of 77 BPM, no acute changes, no ischemic changes, LBBB. This EKG was reviewed and interpreted by Dr. Franco. Re-Evaluation - Re-Evaluation First Re-Evaluation Time: 01:08 Change: Unchanged Comment: At 01:08, patient was given Toradol for continued chest pain. Second Re-Evaluation Time: 01:46 Change: Improved Comment: I have discussed results with the patient and chest pain is resolved. Discussed symptoms that warrant immediate return to ED. Chest Pain Course/Dx - Course Course Of Treatment: 53-year-old male with no cardiac history presents with 2 day history of constant chest pain. Describes it as an aching. Patient got no relief from Tylenol. After Toradol he was resting comfortably. Patient discharged home. Presumed musculoskeletal chest pain. Discussed at length with patient. Follow up with PCP. Follow-up sooner for any worsening symptoms. - Diagnoses Provider Diagnoses: Tobacco use, Chest pain Discharge ED - Sign-Out/Discharge Documenting (check all that apply): Patient Departure - Discharge - Discharge Plan Condition: Stable Disposition: HOME Patient Education Materials: Chest Pain (ED) Referrals: Chelsie Martinez NP [Primary Care Provider] - Additional Instructions: Please follow up with your primary care physician within three days. Please return to ED for any new or worsening symptoms. - Billing Disposition and Condition Condition: STABLE Disposition: Home - Attestation Statements Document Initiated by Marjanibe: Yes Documenting Scribe: Jaye Paul Provider For Whom Caprice is Documenting (Include Credential): Radha Franco MD Scribe Attestation: Jaye John, marjanibed for Radha Franco MD on 06/29/19 at 0629. Scribe Documentation Reviewed: Yes Provider Attestation: The documentation as recorded by the marjanibdain, Jaye Paul accurately reflects the service I personally performed and the decisions made by me, Radha Franco MD Status of Caprice Document: Viewed
[2019-06-28 22:45] LABS: ABS Basophils 0.1 10^3/ul (0-0.2); ABS Eosinophils 0.2 10^3/ul (0-0.6); ABS Lymphocytes 1.4 10^3/ul (1.0-4.8); ABS Monocytes 0.7 10^3/ul (0-0.8); Eosinophil % 2.9 %; Hematocrit 43 % (42-52); Hemoglobin 15.1 g/dL (14.0-18.0); Lymphocyte % 18.9 %; Mean Corpuscular HGB Conc 35 g/dL (31-36); Mean Corpuscular Hemoglobin 33 pg (27-31); Mean Corpuscular Volume 92 fL (80-94); Mean Platelet Volume 7.8 fL (7.4-10.4); Platelet Count 212 10^3/uL (150-450); Red Blood Count 4.63 10^6 /uL (4.18-5.48); Red Cell Distribution Width 13 % (10-15); White Blood Count 7.3 10^3/uL (3.5-10.8)
[2019-06-28 23:02] LABS: BUN/Creatinine Ratio 16.1 (8-20); Calcium 9.4 mg/dL (8.6-10.3); EGFR African American 77.5 (>60); EGFR Non-African American 64.1 (>60); Potassium 3.8 mmol/L (3.5-5.0); Total Bilirubin 0.3 mg/dL (0.2-1.0)
[2019-06-28 23:03] LABS: Troponin I 0.01 ng/mL (<0.04)
[2019-06-28] MEDS ORDERED: Acetaminophen TAB* 325 MG PO ONE (23:19)
[2019-06-29] MEDS ORDERED: Ketorolac INJ* 30 MG/ML 1 ML VIAL IV PUSH ONE (01:08)
[2019-06-29 02:26] VITALS: BP 130/77
== END 2019-06-29 02:15 | disposition home or self-care (01) ==
LOC: ED 22:07
DX: R07.9 Chest pain, unspecified (principal); E78.5 Hyperlipidemia, unspecified; F32.9 Major depressive disorder, single episode, unspecified; E03.9 Hypothyroidism, unspecified; F41.9 Anxiety disorder, unspecified; G40.909 Epilepsy, unspecified, not intractable, without status epilepticus; E78.00 Pure hypercholesterolemia, unspecified; K21.9 Gastro-esophageal reflux disease without esophagitis; R51 Headache; F17.210 Nicotine dependence, cigarettes, uncomplicated
CPT/HCPCS: 36415; 71045; 80053; 83605; 84484; 85025; 93005; 96374; 99284; A9270-GY; J1885

== ENCOUNTER 2019-07-17 02:53 | Inpatient (IN) | payer MEDICARE, MEDICAID ==
[2019-07-17] MEDS ORDERED: Lidocaine 2% VISCOUS* 15 ML UDC PO ONE ×2 (03:05→12:00)
[2019-07-17] MEDS ORDERED: Al Hydrox/Mg Hydrox/Simet LIQ* 30 ML UDC PO ONE ×2 (03:05→11:00)
--- NOTE | 2019-07-17 03:08 | ED ---
Psychiatric Complaint - HPI Summary HPI Summary: Patient is a 53 y/o M presenting to [facility] with complaints of SI. SI onset yesterday when he began to experience "flashbacks". Patient's plan of suicide is to cut his wrists. He states that he has not come close to actually doing so but came here [place] to be safe. Patient resides at [facility] but notes he was visiting his sister ar[place]. PMHx of seizures is noted. He additionally reports abdominal pain and requests a GI cocktail. Home medications and allergies are reviewed. - History Of Current Complaint Hx Obtained From: Patient Onset/Duration: Lasting Days, Still Present Timing: Days Character: Depressed Aggravating Factor(s): Other - "flashbacks" Has Suicidal: Reports: Thoughts, With A Plan - Allergies/Home Medications Allergies/Adverse Reactions: Allergies Allergy/AdvReac Type Severity Reaction Status Date / Time lactose Allergy Stomach Verified 07/17/19 02:56 Cramps PMH/Surg Hx/FS Hx/Imm Hx Endocrine/Hematology History: Reports: Hx Thyroid Disease Denies: Hx Anticoagulant Therapy, Hx Diabetes, Hx Systemic Lupus Erythematosus, Hx Anemia Cardiovascular History: Reports: Hx Hypercholesterolemia, Other Cardiovascular Problems/Disorders - HYPERLIPIDEMIA Denies: Hx Congestive Heart Failure, Hx Hypertension, Hx Pacemaker/ICD Respiratory History: Reports: Other Respiratory Problems/Disorders - Sarcoidosis Denies: Hx Asthma, Hx Chronic Bronchitis, Hx Chronic Obstructive Pulmonary Disease (COPD) GI History: Reports: Hx Gastroesophageal Reflux Disease, Hx Irritable Bowel, Hx Obstructive Bowel - Small bowel, Other GI Disorders - CYST REMOVED FROM BLADDER , LATE Denies: Hx Ulcer History: Reports: Hx Kidney Stones, Hx Renal Disease - LEFT KIDNEY DECREASE IN FUNCTION, Other Problems/Disorders - HX OF CYST IN THE BLADDER Denies: Hx Benign Prostatic Hyperplasia, Hx Dialysis Musculoskeletal History: Reports: Other Musculoskeletal History - Sarcoidosis Denies: Hx Rheumatoid Arthritis Sensory History: Reports: Hx Contacts or Glasses Denies: Hx Legally Blind, Hx Deafness, Hx Hearing Aid Opthamlomology History: Reports: Hx Contacts or Glasses Denies: Hx Legally Blind Neurological History: Reports: Hx Developmental Delay, Hx Headaches, Hx Seizures , Other Neuro Impairments/Disorders - "light concussion" Psychiatric History: Reports: Hx Anxiety, Hx Depression, Hx Panic Disorder, Hx Post Traumatic Stress Disorder, Hx Inpatient Treatment, Hx Community Mental Health Tx, Hx Suicide Attempt, Other Psychiatric Issues/Disorders Denies: Hx Attention Deficit Hyperactivity Disorder, Hx Eating Disorder, Hx Schizophrenia, Hx Bipolar Disorder, Hx of Violent Episodes Against Others, Hx Substance Abuse - Cancer History Hx Chemotherapy: No - Surgical History Surgery Procedure, Year, and Place: 2009 APPENDECTOMY, [facility] [place] CYST REMOVED FROM BLADDER, [facility] [place] CHOLECYSTECTOMY-12/2012 Hx Anesthesia Reactions: No - Immunization History Date of Tetanus Vaccine: Unknown Date of Influenza Vaccine: Fall 2013 Infectious Disease History: No Infectious Disease History: Denies: Hx Clostridium Difficile, Hx Hepatitis, Hx Human Immunodeficiency Virus (HIV), Hx of Known/Suspected MRSA, Hx Shingles, Hx Tuberculosis, Hx Known/ Suspected VRE, Hx Known/Suspected VRSA, History Other Infectious Disease, Traveled Outside the [place] in Last 30 Days - Family History Known Family History: Positive: Cardiac Disease, Hypertension - Father, Seizure Disorder - sister, Other - cancer - Social History Alcohol Use: None Alcohol Amount: none since 2011 Hx Substance Use: Yes Substance Use Type: Reports: None Substance Use Comment - Amount & Last Used: pt states he has not used any drugs since 2011. Hx Tobacco Use: Yes Smoking Status (MU): Heavy Every Day Tobacco Smoker Type: Cigarettes Length of Time of Smoking/Using Tobacco: 20YRS Have You Smoked in the Last Year: No Review of Systems Positive: Abdominal Pain Psychological: Other - positive - SI All Other Systems Reviewed And Are Negative: Yes Physical Exam - Summary Physical Exam Summary: Appearance: Well-appearing, Well-nourished, lying in bed comfortable Skin: Warm, dry, no obvious rash Eyes: sclera anicteric, no conjunctival pallor ENT: mucous membranes moist Neck: deferred Respiratory: No signs of respiratory distress Cardiovascular: Appears well perfused, pulses are nml Abdomen: deferred Musculoskeletal: Moving all 4 extremities without obvious discomfort Neurological: Awake and alert, mentation is normal, speech is fluent and appropriate Psychiatric: affect is normal, does not appear anxious or depressed Triage Information Reviewed: Yes Vital Signs On Initial Exam: Initial Vitals Temp Pulse Resp BP Pulse Ox 96.1 F 95 16 136/92 96 07/17/19 02:54 07/17/19 02:54 07/17/19 02:54 07/17/19 02:54 07/17/19 02:54 Vital Signs Reviewed: Yes Procedures - Sedation Patient Received Moderate/Deep Sedation with Procedure: No Diagnostics - Vital Signs Vital Signs Temp Pulse Resp BP Pulse Ox 07/17/19 02:54 96.1 F 95 16 136/92 96 - Laboratory Result Diagrams: 07/17/19 03:09 07/17/19 03:09 Lab Statement: Any lab studies that have been ordered have been reviewed, and results considered in the medical decision making process. Re-Evaluation - Re-Evaluation First Eval Re-Evaluation Time: 03:18 Comment: Patient is medically cleared for MHE. Second Eval Re-Evaluation Time: 05:55 Comment: Patient has complaints of nausea, Zofran to be given. Course/Dx - Course Course Of Treatment: Patient is a 53 y/o M presenting to [facility] with complaints of SI. SI onset yesterday when he began to experience "flashbacks". Patient's plan of suicide is to cut his wrists. He states that he has not come close to actually doing so but came here [facility] to be safe. Patient resides at [facility] but notes he was visiting his sister aron. PMHx of seizures is noted. He additionally reports abdominal pain and requests a GI cocktail. Bloodwork was obtained. Abnormal values include MCV 95, MCH 32, absolute monos 0.9, glucose 106. UA showed 2+ protein, trace ketones, 3+ leukocyte esterase, 3 + WBC, amorphous crystals and urine sperm were present. Tox screen was negative. During ED course, patient received Maalox Plus 30 ml PO, Liodcaine 15 ml PO, and Zofran 8 mg SL. Patient was medically cleared for MHE. Patient received MHE. Patient is signed out to Dr. Dunham at 0700 07/17/19 shift change pending disposition of this mental health patient. - Differential Dx/Clinical Impression Provider Diagnosis: Alcohol intoxication Discharge ED - Sign-Out/Discharge Documenting (check all that apply): Sign-Out Patient Signing out patient TO: Antolin Dunham - Discharge Plan Condition: Stable Referrals: Chelsie Mratinez NP [Primary Care Provider] - - Attestation Statements Document Initiated by Scribe: Yes
[2019-07-17 03:16] LABS: ABS Basophils 0.1 10^3/ul (0-0.2); ABS Eosinophils 0.2 10^3/ul (0-0.6); ABS Lymphocytes 1.3 10^3/ul (1.0-4.8); ABS Monocytes 0.9 10^3/ul (0-0.8); ABS Neutrophils 6.2 10^3/ul (1.5-7.7); Eosinophil % 2.5 %; Hematocrit 48 % (42-52); Hemoglobin 16.1 g/dL (14.0-18.0); Lymphocyte % 14.9 %; Mean Corpuscular HGB Conc 34 g/dL (31-36); Mean Corpuscular Hemoglobin 32 pg (27-31); Mean Corpuscular Volume 95 fL (80-94); Nucleated Red Blood Cells % 0.1; Platelet Count 246 10^3/uL (150-450); Red Blood Count 5.02 10^6 /uL (4.18-5.48); Red Cell Distribution Width 14 % (10-15); White Blood Count 8.7 10^3/uL (3.5-10.8)
[2019-07-17 03:35] LABS: Albumin 4.3 g/dL (3.2-5.2); CO2 Carbon Dioxide 22 mmol/L (22-32); Calcium 9.4 mg/dL (8.6-10.3); Chloride 108 mmol/L (101-111); Sodium 137 mmol/L (135-145)
[2019-07-17 03:41] LABS: ALT 27 U/L (7-52); Albumin/Globulin Ratio 1.7 (1-3); Alkaline Phosphatase 78 U/L (34-104); BUN/Creatinine Ratio 16.7 (8-20); Blood Urea Nitrogen 19 mg/dL (6-24); EGFR African American 80.7 (>60); EGFR Non-African American 66.7 (>60); Globulin 2.6 g/dL (2-4); Glucose 106 mg/dL (70-100); Total Protein 6.9 g/dL (6.4-8.9)
[2019-07-17 03:45] LABS: Anion Gap 7 mmol/L (2-11)
[2019-07-17 03:47] LABS: Acetaminophen < 15 mcg/mL; Alcohol < 10 mg/dL (<10); Salicylate < 2.50 mg/dL (<30)
[2019-07-17 04:03] LABS: TSH (Thyroid Stimulating Horm) 1.98 mcIU/mL (0.34-5.60)
[2019-07-17 05:11] LABS: Urine Appearance Turbid; Urine Bilirubin Negative (Negative); Urine Blood Negative (Negative); Urine Color Yellow; Urine Glucose Negative (Negative); Urine Ketones Trace (Negative); Urine Nitrite Negative (Negative); Urine Protein 2+(100 mg/dL) (Negative); Urine Specific Gravity 1.018 (1.010-1.030); Urine Urobilinogen Negative (Negative)
[2019-07-17 05:15] LABS: Urine Bacteria Absent (Absent); Urine Red Blood Cell Absent (Absent); Urine White Blood Cell 3+(>20/hpf) (Absent)
[2019-07-17 05:41] LABS: Urine Benzodiazepine Screen None Detected (None Detect); Urine Opiates Screen None Detected (None Detect)
[2019-07-17] MEDS ORDERED: Ondansetron ODT TAB* 4 MG SL ONE (05:41)
--- NOTE | 2019-07-17 07:16 | ED ---
Progress - Progress Note Progress Note: The patient is a sign-out from Dr. Gerald Jalloh MD, to Dr. Antolin Dunham MD, at change of shift at 0700 on 07/17/19, pending mental health evaluation and disposition. Course/Dx - Course Course Of Treatment: The patient is a sign-out from Dr. Gerald Jalloh MD, to Dr. Antolin Dunham MD, at change of shift at 0700 on 07/17/19, pending mental health evaluation and disposition. - Diagnoses Provider Diagnoses: Alcohol intoxication Discharge ED - Sign-Out/Discharge Documenting (check all that apply): Receiving Sign-Out Receiving patient FROM: Gerald Jalloh - Patient is a sign-out from Dr. Gerald Jalloh MD, at change of shift at 0700 on 07/17/19, pending mental health evaluation and disposition. - Discharge Plan Condition: Stable Referrals: Chelsie Martinez NP [Primary Care Provider] - - Billing Disposition and Condition Condition: STABLE - Attestation Statements Document Initiated by Scribe: Yes Documenting Scribe: Nettie Canales Provider For Whom Caprice is Documenting (Include Credential): Dr. Antolin Dunham MD Scribe Attestation: Nettie John scribed for Dr. Antolin Dunham MD on 07/17/19 at 0719. Scribe Documentation Reviewed: Yes Provider Attestation: The documentation as recorded by the Nettie farah accurately reflects the service I personally performed and the decisions made by me, Dr. Antolin Dunham MD Status of Scribe Document: Viewed Procedures - Sedation Patient Received Moderate/Deep Sedation with Procedure: No
[2019-07-17] MEDS ORDERED: Nicotine* 2MG (FRUIT FLAVOR) GUM PO PRN (08:21)
[2019-07-17] MEDS ORDERED: Acetaminophen TAB* 325 MG PO PRN (08:23)
[2019-07-17] MEDS ORDERED: Cyclobenzaprine TAB* 10 MG PO PRN (08:25)
[2019-07-17] MEDS ORDERED: Cetirizine* 10 MG TAB PO PRN (08:30)
[2019-07-17] MEDS ORDERED: Albuterol HFA INHALER* 8 gm MDI INH PRN (08:30)
[2019-07-17] MEDS: Al Hydrox/Mg Hydrox/Simet LIQ* 30 ML UDC PO PRN ×4 (08:42→23:45)
[2019-07-17] MEDS: Pantoprazole TAB * 40 MG TAB PO SCH (08:43)
[2019-07-17] MEDS: Vitamin THERAPEUTIC TAB PO SCH (08:44)
[2019-07-17] MEDS: Famotidine TAB* 20 MG PO SCH ×2 (08:44→19:22)
[2019-07-17] MEDS: Levothyroxine TAB* 50 MCG TAB PO SCH (08:44)
[2019-07-17] MEDS: Doxazosin TAB* 2 MG PO SCH (08:44)
[2019-07-17] MEDS: Lidocaine 2% JELLY* 5 ML TUBE LIDO2GEL7 TOPICAL SCH ×4 (08:47→19:21)
[2019-07-17] MEDS ORDERED: Ondansetron ODT TAB* 4 MG PO ONE (12:00)
[2019-07-17] MEDS: Prochlorperazine TAB* 5 MG PO PRN ×2 (17:22→20:44)
[2019-07-17] MEDS ORDERED: Atorvastatin* 20 MG TAB PO SCH (21:00)
[2019-07-17] MEDS ORDERED: Prazosin CAP* 1 MG PO SCH (21:00)
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
[2019-07-18] MEDS: Al Hydrox/Mg Hydrox/Simet LIQ* 30 ML UDC PO PRN ×3 (04:15→14:33)
[2019-07-18] MEDS: Famotidine TAB* 20 MG PO SCH (07:46)
[2019-07-18] MEDS: Pantoprazole TAB * 40 MG TAB PO SCH (07:47)
[2019-07-18] MEDS: Vitamin THERAPEUTIC TAB PO SCH (07:47)
[2019-07-18] MEDS: Levothyroxine TAB* 50 MCG TAB PO SCH (07:47)
[2019-07-18] MEDS: Lidocaine 2% JELLY* 5 ML TUBE LIDO2GEL7 TOPICAL SCH ×3 (07:47→13:16)
[2019-07-18] MEDS: Doxazosin TAB* 2 MG PO SCH (07:47)
[2019-07-18] MEDS: Prochlorperazine TAB* 5 MG PO PRN (09:02)
[2019-07-18 09:25] VITALS: BP 147/78
--- OUTSIDE RECORDS SUMMARY | 2019-07-19 15:53 | XMS REPORT | Continuity of Care Document ---
:1965 External Reference #:[id number] Author Name ELIZABETH Barajas Address [address] [place] [address] Problems Active Problems Provider Date Chronic kidney disease Onset: 08/03/2018 Lower urinary tract symptoms due to benign prostatic Onset: 02/21/2018 hypertrophy Hypothyroidism Onset: 04/22/2017 Bilateral cataracts Onset: 01/31/2017 Amblyopia Onset: 01/31/2017 Allergic rhinitis Onset: 11/07/2015 Pure hyperglyceridemia Onset: 05/17/2012 Inactive Problems Increased frequency of urination Onset: 03/24/2019 Inactive: 03/24/2019 Abnormal urination Onset: 03/23/2019 Inactive: 03/23/2019 Dysuria Onset: 03/18/2019 Inactive: 03/18/2019 Abdominal pain Onset: 03/18/2019 Inactive: 03/18/2019 Nausea and vomiting Onset: 03/17/2019 Inactive: 03/17/2019 Lactose intolerance Onset: 01/31/2019 Inactive: 01/31/2019 Diarrhea Onset: 01/25/2019 Inactive: 01/25/2019 Social History Type Date Description Comments Sex Unknown Tobacco Use Start: Unknown Light tobacco smoker (10 or fewer cigarettes/day) Smoking Status Reviewed: 06/29/19 Light tobacco smoker (10 or fewer cigarettes/day) Allergies, Adverse Reactions, Alerts Description No Information Available Medications Active Medications SIG Qnty Indications Ordering Date Provider Guaifenesin/Pseudoep 2 tab by mouth 28tabs ELIZABETH Barajas 06/29/2019 hedrine twice a day Hydrochloride 60-600mg Tablets ER 12HR Atorvastatin Calcium Take 1 Tablet By 90tabs ELIZABETH Barajas 05/31/2019 Mouth AT Bedtime 20mg Tablets Omeprazole oral; take one 30caps ELIZABETH Barajas 04/13/2019 40mg capsule by mouth Capsules DR once daily Prazosin HCL 2 at bedtime Oral 180caps Unknown 02/21/2019 1mg Capsules Topiramate 1 daily Oral 90tabs Unknown 02/21/2019 100mg Tablets Levothyroxine Sodium Oral; Take One 30tabs Unknown 02/09/2019 Tablet By Mouth 50mcg Tablets Once Daily In The Morning Dairy-Digestive Oral; Chew 2 to 100units Unknown 01/14/2019 4 tablets before a 9000Unit Chewtabs meal containing dairy products Famotidine Oral; Take One 60tabs Unknown 12/27/2018 20mg Tablet By Mouth Two Tablets Times Daily Antacid Maximum oral; take 4 500units Lavon Rodriguez MD 09/27/2018 Strength teaspoonsful (20ml) by mouth twice a [id number]/5ML day Suspension Probiotic 1 daily Oral 30caps Unknown 08/12/2018 Capsules Cetirizine HCL Oral; Take One 30tabs Unknown 07/19/2018 10mg Tabletby Mouth Once Tablets Daily as Needed Dicyclomine HCL 1 twice daily prn 120tabs Unknown 07/12/2018 20mg Oral Tablets Lidotrex Apply four times 45units Unknown 07/12/2018 2% Gel each day External Doxazosin Mesylate 1 at bedtime Oral 30tabs Unknown 06/25/2018 4mg Tablets Geodon 1 twice daily Oral Unknown 03/23/2018 80mg Capsules Duloxetine HCL 1 daily Oral Unknown 03/23/[address] Miller Lipliam 1 at bedtime oral 90tabs Rosalia 02/18/2018 20mg Tablets [place], DO Omeprazole 1 daily Oral 30caps Unknown 02/18/[address] Moralez 1 daily Oral 30tabs Unknown 11/24/2017 100mg Tablets Acetaminophen Extra 2 evedry 8 hours 50tabs Unknown 10/21/2017 Strength prn Oral 500mg Tablets Multivitamin Adult 1 daily Oral 90tabs Unknown 03/30/2017 Tablets Seroquel 1 three times Unknown 03/30/2017 25mg Tablets daily prn Oral Clonidine HCL 1 at bedtime Oral Unknown 03/16/2017 0.2mg Tablets Zolpidem Tartrate 1 at bedtime Oral Unknown 03/16/2017 5mg Tablets Vitamin D Oral; Take One 3caps Unknown 02/25/2016 (Ergocalciferol) Capsule By Mouth Once A Month [id number] Capsules History Medications Guaifenesin ER 1 tab by mouth 20tabs Chelsie Martinez, [employer] 06/29/2019 - 1200mg twice a day 06/29/2019 Tablets ER 12HR Bactrim DS 1 twice daily 6tabs Unknown 03/17/2019 - 800-160mg Oral 03/20/2019 Tablets Omeprazole 1 daily Oral 30caps Unknown 03/17/2019 - 40mg Capsules 04/13/2019 Immunizations CPT Code Status Date Vaccine Lot # [id number] Given 05/11/2019 Flu < 65 years [id number] 22121 Given 05/11/2018 Influenza Virus Vaccine, Quadrivalent, Split Virus, Im Use 0.5ML 01130 Given 05/11/2018 Flu < 65 years 76766 Given 05/11/2018 Influenza Virus Vaccine, Quadrivalent, Split, Preservative Free 61147 Given 05/11/2018 Flumist 32020 Given 05/11/2018 Flu High Dose 92640 Given 05/11/2018 Influenza Virus Vaccine, Split, Preserv Free, Intradermal Use 59764 Given 04/22/2017 Influenza Virus Vaccine, Quadrivalent, Split Virus, Im Use 0.5ML 99224 Given 04/22/2017 Flu < 65 years 92276 Given 04/22/2017 Influenza Virus Vaccine, Quadrivalent, Split, Preservative Free 36329 Given 04/22/2017 Flumist 44776 Given 04/22/2017 Flu High Dose 87817 Given 04/22/2017 Influenza Virus Vaccine, Split, Preserv Free, Intradermal Use 79005 Given 06/16/2016 Influenza Virus Vaccine, Split, Preserv Free, Intradermal Use 27583 Given 06/16/2016 Flu High Dose 62863 Given 06/16/2016 Flumist 44121 Given 06/16/2016 Influenza Virus Vaccine, Quadrivalent, Split, Preservative Free 69086 Given 06/16/2016 Flu < 65 years 71073 Given 06/16/2016 Influenza Virus Vaccine, Quadrivalent, Split Virus, Im Use 0.5ML 42544 Given 06/07/2014 Influenza Virus Vaccine, Quadrivalent, Split, Im Use 0.25ML 20228 Given 06/07/2014 Influenza Virus Vaccine, Quadrivalent, Split, Im Use 0.25ML 23285 Given 06/07/2014 Influenza Virus Vaccine, Quadrivalent, Split, Im Use 0.25ML 97634 Given 06/07/2014 Flu < 65 years 99859 Given 06/07/2014 Influenza Virus Vaccine, Quadrivalent, Split, Preservative Free 63673 Given 06/07/2014 Flumist 89457 Given 06/07/2014 Flu High Dose 87555 Given 05/18/2013 Flu High Dose 59356 Given 05/18/2013 Flumist 87963 Given 05/18/2013 Influenza Virus Vaccine, Quadrivalent, Split, Preservative Free 44858 Given 05/18/2013 Flu < 65 years 61310 Given 05/18/2013 Influenza Virus Vaccine, Quadrivalent, Split, Im Use 0.25ML 43308 Given 05/18/2013 Influenza Virus Vaccine, Quadrivalent, Split, Im Use 0.25ML 02855 Given 05/18/2013 Influenza Virus Vaccine, Quadrivalent, Split, Im Use 0.25ML Q2038 Given 05/18/2013 Influenza Vaccine (Fluzone) Administered Age 3 And Older 92837 Given 04/07/2012 Flu High Dose 56522 Given 04/07/2012 Flumist 92555 Given 04/07/2012 Influenza Virus Vaccine, Quadrivalent, Split, Preservative Free 99561 Given 04/07/2012 Flu < 65 years 07328 Given 04/07/2012 Influenza Virus Vaccine, Quadrivalent, Split, Im Use 0.25ML 15678 Given 04/07/2012 Influenza Virus Vaccine, Quadrivalent, Split, Im Use 0.25ML 46279 Given 04/07/2012 Influenza Virus Vaccine, Quadrivalent, Split, Im Use 0.25ML 87930 Given 04/07/2012 Tdap - Boostrix/Adacel 01382 Given 04/07/2012 Pneumovax - for >=2years - PPSV23 Q2038 Given 04/07/2012 Influenza Vaccine (Fluzone) Administered Age 3 And Older Q2038 Given 06/16/2011 Influenza Vaccine (Fluzone) Administered Age 3 And Older 53826 Given 06/16/2011 Influenza Virus Vaccine, Quadrivalent, Split, Im Use 0.25ML 66655 Given 06/16/2011 Influenza Virus Vaccine, Quadrivalent, Split, Im Use 0.25ML 01113 Given 06/16/2011 Influenza Virus Vaccine, Quadrivalent, Split, Im Use 0.25ML 51148 Given 06/16/2011 Flu < 65 years 02646 Given 06/16/2011 Influenza Virus Vaccine, Quadrivalent, Split, Preservative Free 77327 Given 06/16/2011 Flumist 09010 Given 06/16/2011 Flu High Dose Vital Signs Date Vital Result Comment 06/29/2019 9:52am BP Systolic 112 mmHg BP Diastolic 60 mmHg Height 63.75 inches 5'3.75" Weight 201.00 lb Heart Rate 95 /min Body Temperature 96.6 F O2 % BldC Oximetry 100 % BMI (Body Mass Index) 34.8 kg/m2 03/23/2019 1:59pm BP Systolic 122 mmHg Weight 205.00 lb Heart Rate 94 /min Body Temperature 97.2 F O2 % BldC Oximetry 99 % Results Test Acquired Date Facility Test Result H/L Range Note CBC Auto 07/17/2019 [facility] White Blood 8.7 10^3/uL Normal 3.5-10.[address] [place] [address] [phone] Red Blood Count 5.02 10^6/uL Normal 4.18-5.48 Hemoglobin 16.1 g/dL Normal 14.0-18.0 Hematocrit 48 % Normal 42-52 Mean Corpuscular Volume 95 fL High 80-94 Mean Corpuscular Hemoglobin 32 pg High 27-31 Mean Corpuscular HGB Conc 34 g/dL Normal 31-36 Red Cell Distribution Width 14 % Normal 10-15 Platelet Count 246 10^3/uL Normal 150-450 Mean Platelet Volume 8.0 fL Normal 7.4-10.4 Abs Neutrophils 6.2 10^3/uL Normal 1.5-7.7 Abs Lymphocytes 1.3 10^3/uL Normal 1.0-4.8 Abs Monocytes 0.9 10^3/uL High 0-0.8 Abs Eosinophils 0.2 10^3/uL Normal 0-0.6 Abs Basophils 0.1 10^3/uL Normal 0-0.2 Abs Nucleated RBC 0.0 10^3/uL Granulocyte % 71.5 % Lymphocyte % 14.9 % Monocyte % 10.2 % Eosinophil % 2.5 % Basophil % 0.9 % Nucleated Red Blood Cells % 0.1 Comp Metabolic 07/17/2019 [facility] Sodium 137 mmol/L Normal 135-[address] [place] [address] [phone] Chloride 108 mmol/L Normal 101-111 Co2 Carbon Dioxide 22 mmol/L Normal 22-32 Calcium 9.4 mg/dL Normal 8.6-10.3 Albumin 4.3 g/dL Normal 3.2-5.2 Total Bilirubin 0.30 mg/dL Normal 0.2-1.0 Glucose 106 mg/dL High 70-100 Blood Urea Nitrogen 19 mg/dL Normal 6-24 Creatinine 1.14 mg/dL Normal 0.67-1.17 BUN/Creatinine Ratio 16.7 Normal 8-20 Total Protein 6.9 g/dL Normal 6.4-8.9 Globulin 2.6 g/dL Normal 2-4 Albumin/Globulin Ratio 1.7 Normal 1-3 Alkaline Phosphatase 78 U/L Normal 34-104 Alt 27 U/L Normal 7-52 Egfr Non- 66.7 >60 Egfr 80.7 >60 1 Potassium TNP mmol/L 3.5-5.0 2 Anion Gap 7 mmol/L Normal 2-11 Ast TNP U/L 13-39 3 Laboratory test 07/17/2019 [facility] Acetaminophen < 15 g/mL 4 finding [address] [place] [address] [phone] Alcohol < 10 mg/dL Normal <10 Salicylate < 2.50 mg/dL <30 TSH (Thyroid Stim Horm) 1.98 mcIU/mL Normal 0.34-5.60 Urinalysis Profile 07/17/2019 [facility] Urine Color Yellow [address] [place] [address] [phone] Urine Appearance Turbid Urine Specific [place] 1.018 Normal 1.010-1.030 Urine pH 7.0 Normal 5-9 Urine Urobilinogen Negative Negative Urine Ketones Trace Abnormal Negative Urine Protein 2+(100 mg/dL) Abnormal Negative Urine Leukocytes 3+ Abnormal Negative Urine Blood Negative Negative Urine Nitrite Negative Negative Urine Bilirubin Negative Negative Urine Glucose Negative Negative Urine White Blood Cell 3+(>20/hpf) Abnormal Absent Urine Red Blood Cell Absent Absent Urine Bacteria Absent Absent Urine Amorphous Crystals Present Abnormal Absent Urine Sperm Present Abnormal Absent Urine Drug 07/17/2019 [facility] Urine None Detected None Detect SCR ED & [address] [facility] [place] [address] Screen [phone] Urine Barbiturates Screen None Detected None Detect Urine Benzodiazepine Screen None Detected None Detect Urine Cannabinoids Screen None Detected None Detect Urine Cocaine Screen None Detected None Detect Urine Opiates Screen None Detected None Detect Urine Phencyclidine Screen None Detected None Detect 5 Urine Culture And 07/17/2019 [facility] Urine Culture SEE RESULT [address] [place] [address] [phone] Laboratory test 06/29/2019 [facility] Troponin-I 0.02 ng/mL < 0.04 [address] (TnI) [place] [address] [phone] Laboratory test 06/28/2019 [facility] Troponin-I 0.01 ng/mL < 0.04 [address] ([place]) [place] [address] [phone] Lactic Acid 1.3 mmol/L Normal 0.5-2.0 9 Comp Metabolic 06/28/2019 [facility] Sodium 138 mmol/L Normal 135-[address] [place] [address] [phone] Potassium 3.8 mmol/L Normal 3.5-5.0 Chloride 107 mmol/L Normal 101-111 Co2 Carbon Dioxide 25 mmol/L Normal 22-32 Anion Gap 6 mmol/L Normal 2-11 Glucose 106 mg/dL High 70-100 Blood Urea Nitrogen 19 mg/dL Normal 6-24 Creatinine 1.18 mg/dL High 0.67-1.17 BUN/Creatinine Ratio 16.1 Normal 8-20 Calcium 9.4 mg/dL Normal 8.6-10.3 Total Protein 6.0 g/dL Low 6.4-8.9 Albumin 4.0 g/dL Normal 3.2-5.2 Globulin 2.0 g/dL Normal 2-4 Albumin/Globulin Ratio 2.0 Normal 1-3 Total Bilirubin 0.30 mg/dL Normal 0.2-1.0 Alkaline Phosphatase 73 U/L Normal 34-104 Alt 21 U/L Normal 7-52 Ast 16 U/L Normal 13-39 Egfr Non- 64.1 >60 Egfr 77.5 >60 10 CBC Auto 06/28/2019 [facility] White Blood 7.3 10^3/uL Normal 3.5-10.[address] [place] [address] [phone] Red Blood Count 4.63 10^6/uL Normal 4.18-5.48 Hemoglobin 15.1 g/dL Normal 14.0-18.0 Hematocrit 43 % Normal 42-52 Mean Corpuscular Volume 92 fL Normal 80-94 Mean Corpuscular Hemoglobin 33 pg High 27-31 Mean Corpuscular HGB Conc 35 g/dL Normal 31-36 Red Cell Distribution Width 13 % Normal 10-15 Platelet Count 212 10^3/uL Normal 150-450 Mean Platelet Volume 7.8 fL Normal 7.4-10.4 Abs Neutrophils 5.0 10^3/uL Normal 1.5-7.7 Abs Lymphocytes 1.4 10^3/uL Normal 1.0-4.8 Abs Monocytes 0.7 10^3/uL Normal 0-0.8 Abs Eosinophils 0.2 10^3/uL Normal 0-0.6 Abs Basophils 0.1 10^3/uL Normal 0-0.2 Abs Nucleated RBC 0.0 10^3/uL Granulocyte % 67.8 % Lymphocyte % 18.9 % Monocyte % 9.3 % Eosinophil % 2.9 % Basophil % 1.1 % Nucleated Red Blood Cells % 0.0 Urine Culture And 05/15/2019 [facility] Urine SEE RESULT 11 , [address] [place] [address] [phone] Poc Urinalysis 05/15/2019 [facility] Poc Negative Negative [address] Glucose, [place] [address] Urine [phone] Poc Bilirubin, Urine Negative Negative Poc Ketone, Urine Negative Negative Poc Specific [place], Urine 1.025 Normal 1.010-1.030 Poc Blood, Urine Negative Negative Poc pH, Urine 5.0 Normal 5-9 Poc Protein, Urine Negative Negative Poc Urobilinogen, Urine 0.2 Negative Poc Nitrite, Urine Negative Negative Poc Leukocytes, Urine 1+ Abnormal Negative Poc Color, Urine Yellow Poc Clarity, Urine Cloudy 13 Urobilinogen-Ua 03/24/2019 N2N/CCD Import Urobilinogen-Ua neg Negative - Negative SP Grav-Ua 03/24/2019 N2N/CCD Import SP Grav-Ua <=1.005 Low 1.003 - 1.030 Protein-Ua 03/24/2019 N2N/CCD Import Protein-Ua Negative PH-Ua 03/24/2019 N2N/CCD Import PH-Ua 6.0 _ 5 - 7 Nitrite-Ua 03/24/2019 N2N/CCD Import Nitrite-Ua Negative Negative - Negative Qual Leuk Est-Ua 03/24/2019 N2N/CCD Import Leuk Est-Ua Negative Negative - Negative Qual Ketones-Ua 03/24/2019 N2N/CCD Import Ketones-Ua Negative Negative - Negative Qual Glucose-Ua 03/24/2019 N2N/CCD Import Glucose-Ua Negative Negative - Negative Qual Blood-Ua 03/24/2019 N2N/CCD Import Blood-Ua TR High Negative - Negative Qual Bilirubin-Ua 03/24/2019 N2N/CCD Import Bilirubin-Ua Negative Negative - Negative Qual SP Grav-Ua 03/17/2019 N2N/CCD Import SP Grav-Ua 1.025 _ 1.003 - 1.030 Protein-Ua 03/17/2019 N2N/CCD Import Protein-Ua 2+ PH-Ua 03/17/2019 N2N/CCD Import PH-Ua 6.5 _ 5 - 7 Nitrite-Ua 03/17/2019 N2N/CCD Import Nitrite-Ua Negative Negative - Negative Qual Leuk Est-Ua 03/17/2019 N2N/CCD Import Leuk Est-Ua 1+ High Negative - Negative Qual Ketones-Ua 03/17/2019 N2N/CCD Import Ketones-Ua Trace Negative - Negative Glucose-Ua 03/17/2019 N2N/CCD Import Glucose-Ua Negative Negative - Negative Qual Blood-Ua 03/17/2019 N2N/CCD Import Blood-Ua TR High Negative - Negative Qual Bilirubin-Ua 03/17/2019 N2N/CCD Import Bilirubin-Ua Negative Negative - Negative Qual NRBC% 02/24/2019 N2N/CCD Import NRBC% 0.1 _ NRBC# 02/24/2019 N2N/CCD Import NRBC# 0.0 10_3/ul Nitrite-Ua 02/24/2019 N2N/CCD Import Nitrite-Ua Negative Negative Neut% 02/24/2019 N2N/CCD Import Neut% 67.9 % 50 - 75 % Neut# 02/24/2019 N2N/CCD Import Neut# 4.8 1.5-7.7 10 10_3/ul 3/ul MPV 02/24/2019 N2N/CCD Import MPV 7.9 fL 7.4-10.4 fL [place]% 02/24/2019 N2N/CCD Import [place]% 10.7 % High 0 - 10 % [place]# 02/24/2019 N2N/CCD Import [place]# 0.8 0-0.8 10 10_3/ul 3/ul MCV 02/24/2019 N2N/CCD Import MCV 92 fL 80-94 fL MCHC 02/24/2019 N2N/CCD Import MCHC 35 g/dL 31-36 g/dL MCH 02/24/2019 N2N/CCD Import MCH 32 pg High 27-31 pg Lymph% 02/24/2019 N2N/CCD Import Lymph% 17.7 % Low 20 - 45 % Lymph# 02/24/2019 N2N/CCD Import Lymph# 1.3 1.0-4.8 10 10_3/ul 3/ul Leuk Est-Ua 02/24/2019 N2N/CCD Import Leuk Est-Ua 2+ Abnormal Negative Ketones-Ua 02/24/2019 N2N/CCD Import Ketones-Ua Negative Negative PH-Ua 02/24/2019 N2N/CCD Import PH-Ua 6.0 _ 5-9 Platelets 02/24/2019 N2N/CCD Import Platelets 226 150-450 10 10_3/uL 3/uL Potassium 02/24/2019 N2N/CCD Import Potassium 4.1 mmol/L 3.5-5.0 mmol/L Protein, Total 02/24/2019 N2N/CCD Import Protein, Total 6.7 g/dL 6.4- 8.9 g/dL Protein-Ua 02/24/2019 N2N/CCD Import Protein-Ua Negative Negative RBC 02/24/2019 N2N/CCD Import RBC 4.82 4.18-5.48 10_6_/uL 10 6 /uL RBC-Ua 02/24/2019 N2N/CCD Import RBC-Ua Absent Absent RDW 02/24/2019 N2N/CCD Import RDW 13 % 10-15 % Salicylate 02/24/2019 N2N/CCD Import Salicylate < 2.50 <30 mg/dL Sodium 02/24/2019 N2N/CCD Import Sodium 136 mmol/L 135-145 mmol/L SP Grav-Ua 02/24/2019 N2N/CCD Import SP Grav-Ua 1.005 _ Low 1.010-1.03 0 TSH 02/24/2019 N2N/CCD Import TSH 1.23 0.34-5.60 mcIU/mL mcIU/mL Urobilinogen-Ua 02/24/2019 N2N/CCD Import Urobilinogen-Ua Negative Negative WBC 02/24/2019 N2N/CCD Import WBC 7.1 3.5-10.8 10_3/uL 10 3/uL WBC-Ua 02/24/2019 N2N/CCD Import WBC-Ua 2+(11-20/h Abnormal Absent pf) A/G Ratio 02/24/2019 N2N/CCD Import A/G Ratio 1.8 _ 1-3 Albumin 02/24/2019 N2N/CCD Import Albumin 4.3 g/dL 3.2-5.2 g/dL Alcohol 02/24/2019 N2N/CCD Import Alcohol < 10 <10 mg/dL Alk Phos 02/24/2019 N2N/CCD Import Alk Phos 86 U/L 34-104 U/L Alt 02/24/2019 N2N/CCD Import Alt 29 U/L 7-52 U/L Anion Gap 02/24/2019 N2N/CCD Import Anion Gap 7 mmol/L 2-11 mmol/L Appear-Ua 02/24/2019 N2N/CCD Import Appear-Ua Cloudy Ast 02/24/2019 N2N/CCD Import Ast 21 U/L 13-39 U/L Bacteria-Ua 02/24/2019 N2N/CCD Import Bacteria-Ua Absent Absent Baso# 02/24/2019 N2N/CCD Import Baso# 0.1 0-0.2 10 10_3/ul 3/ul Baso% 02/24/2019 N2N/CCD Import Baso% 0.9 % 0 - 2 % Bilirubin Total 02/24/2019 N2N/CCD Import Bilirubin Total 0.30 mg/dL 0.2 -1.0 mg/dL Bilirubin-Ua 02/24/2019 N2N/CCD Import Bilirubin-Ua Negative Negative Blood-Ua 02/24/2019 N2N/CCD Import Blood-Ua Negative Negative BUN 02/24/2019 N2N/CCD Import BUN 21 mg/dL 6-24 mg/dL Hemoglobin 02/24/2019 N2N/CCD Import Hemoglobin 15.4 g/dL 14.0-18.0 g/dL Hematocrit 02/24/2019 N2N/CCD Import Hematocrit 45 % 42-52 % Glucose-Ua 02/24/2019 N2N/CCD Import Glucose-Ua Negative Negative Glucose 02/24/2019 N2N/CCD Import Glucose 110 mg/dL High 70-100 mg/dL Globulin 02/24/2019 N2N/CCD Import Globulin 2.4 g/dL 2-4 g/dL GFR Non Afr Amer 02/24/2019 N2N/CCD Import GFR Non Afr Amer 57.3 _ >60 GFR Afr Amer 02/24/2019 N2N/CCD Import GFR Afr Amer 69.3 _ >60 Eosin% 02/24/2019 N2N/CCD Import Eosin% 2.8 % 0 - 5 % Eosin# 02/24/2019 N2N/CCD Import Eosin# 0.2 0-0.6 10 10_3/ul 3/ul Creatinine 02/24/2019 N2N/CCD Import Creatinine 1.30 mg/dL High 0.67- 1.17 mg/dL Color-Ua 02/24/2019 N2N/CCD Import Color-Ua Yellow Co2 02/24/2019 N2N/CCD Import Co2 25 mmol/L 22-32 mmol/L Chloride 02/24/2019 N2N/CCD Import Chloride 104 mmol/L 101-111 mmol/L Calcium 02/24/2019 N2N/CCD Import Calcium 9.3 mg/dL 8.6-10.3 mg/dL BUN/Creat Ratio 02/24/2019 N2N/CCD Import BUN/Creat Ratio 16.2 _ 8-20 Neut% 01/25/2019 N2N/CCD Import Neut% 67.0 % 50 - 75 % Neut# 01/25/2019 N2N/CCD Import Neut# 3.7 1.5-7.7 10 10_3/ul 3/ul MPV 01/25/2019 N2N/CCD Import MPV 7.8 fL 7.4-10.4 fL [place]% 01/25/2019 N2N/CCD Import [place]% 12.9 % High 0 - 10 % [place]# 01/25/2019 N2N/CCD Import [place]# 0.7 0-0.8 10 10_3/ul 3/ul MCV 01/25/2019 N2N/CCD Import MCV 90 fL 80-94 fL MCHC 01/25/2019 N2N/CCD Import MCHC 35 g/dL 31-36 g/dL MCH 01/25/2019 N2N/CCD Import MCH 32 pg High 27-31 pg Magnesium 01/25/2019 N2N/CCD Import Magnesium 2.3 mg/dL 1.9-2.7 mg/dL Lymph% 01/25/2019 N2N/CCD Import Lymph% 16.8 % Low 20 - 45 % Lymph# 01/25/2019 N2N/CCD Import Lymph# 0.9 Low 1.0-4.8 10 10_3/ul 3/ul Lipase 01/25/2019 N2N/CCD Import Lipase 86 U/L High 11.0-82.0 U/L Leuk Est-Ua 01/25/2019 N2N/CCD Import Leuk Est-Ua Negative Negative Lactic Acid 01/25/2019 N2N/CCD Import Lactic Acid 1.1 mmol/L 0.5-2.0 mmol/L Ketones-Ua 01/25/2019 N2N/CCD Import Ketones-Ua Negative Negative Nitrite-Ua 01/25/2019 N2N/CCD Import Nitrite-Ua Negative Negative NRBC# 01/25/2019 N2N/CCD Import NRBC# 0.0 10_3/ul NRBC% 01/25/2019 N2N/CCD Import NRBC% 0.1 _ PH-Ua 01/25/2019 N2N/CCD Import PH-Ua 5.0 _ 5-9 Platelets 01/25/2019 N2N/CCD Import Platelets 196 150-450 10 10_3/uL 3/uL Potassium 01/25/2019 N2N/CCD Import Potassium 3.7 mmol/L 3.5-5.0 mmol/L Protein, Total 01/25/2019 N2N/CCD Import Protein, Total 5.9 g/dL Low 6.4- 8.9 g/dL Protein-Ua 01/25/2019 N2N/CCD Import Protein-Ua Negative Negative RBC 01/25/2019 N2N/CCD Import RBC 4.53 4.18-5.48 10_6_/uL 10 6 /uL RDW 01/25/2019 N2N/CCD Import RDW 13 % 10-15 % Sodium 01/25/2019 N2N/CCD Import Sodium 139 mmol/L 135-145 mmol/L SP Grav-Ua 01/25/2019 N2N/CCD Import SP Grav-Ua > 1.060 High 1.010-1.03 0 Troponin 01/25/2019 N2N/CCD Import Troponin 0.00 ng/mL <0.04 ng/mL Urobilinogen-Ua 01/25/2019 N2N/CCD Import Urobilinogen-Ua Negative Negative WBC 01/25/2019 N2N/CCD Import WBC 5.5 3.5-10.8 10_3/uL 10 3/uL A/G Ratio 01/25/2019 N2N/CCD Import A/G Ratio 1.8 _ 1-3 Albumin 01/25/2019 N2N/CCD Import Albumin 3.8 g/dL 3.2-5.2 g/dL Alk Phos 01/25/2019 N2N/CCD Import Alk Phos 71 U/L 34-104 U/L Alt 01/25/2019 N2N/CCD Import Alt 34 U/L 7-52 U/L Amylase 01/25/2019 N2N/CCD Import Amylase 62 U/L 29-103 U/L Anion Gap 01/25/2019 N2N/CCD Import Anion Gap 7 mmol/L 2-11 mmol/L Appear-Ua 01/25/2019 N2N/CCD Import Appear-Ua Clear Ast 01/25/2019 N2N/CCD Import Ast 23 U/L 13-39 U/L Baso# 01/25/2019 N2N/CCD Import Baso# 0.0 0-0.2 10 10_3/ul 3/ul Baso% 01/25/2019 N2N/CCD Import Baso% 0.6 % 0 - 2 % Bilirubin Total 01/25/2019 N2N/CCD Import Bilirubin Total 0.20 mg/dL 0.2 -1.0 mg/dL Bilirubin-Ua 01/25/2019 N2N/CCD Import Bilirubin-Ua Negative Negative Blood-Ua 01/25/2019 N2N/CCD Import Blood-Ua Negative Negative BUN 01/25/2019 N2N/CCD Import BUN 21 mg/dL 6-24 mg/dL BUN/Creat Ratio 01/25/2019 N2N/CCD Import BUN/Creat Ratio 18.3 _ 8-20 Calcium 01/25/2019 N2N/CCD Import Calcium 8.7 mg/dL 8.6-10.3 mg/dL Chloride 01/25/2019 N2N/CCD Import Chloride 110 mmol/L 101-111 mmol/L Co2 01/25/2019 N2N/CCD Import Co2 22 mmol/L 22-32 mmol/L Color-Ua 01/25/2019 N2N/CCD Import Color-Ua Yellow Creatine Kinase 01/25/2019 N2N/CCD Import Creatine Kinase 89 U/L 10-223 U/L Creatinine 01/25/2019 N2N/CCD Import Creatinine 1.15 mg/dL 0.67-1.17 mg/dL CRP 01/25/2019 N2N/CCD Import CRP 17.06 mg/L High <8.01 mg/L Eosin# 01/25/2019 N2N/CCD Import Eosin# 0.1 0-0.6 10 10_3/ul 3/ul Eosin% 01/25/2019 N2N/CCD Import Eosin% 2.7 % 0 - 5 % GFR Afr Amer 01/25/2019 N2N/CCD Import GFR Afr Amer 79.9 _ >60 GFR Non Afr Amer 01/25/2019 N2N/CCD Import GFR Non Afr Amer 66.0 _ >60 Globulin 01/25/2019 N2N/CCD Import Globulin 2.1 g/dL 2-4 g/dL Glucose 01/25/2019 N2N/CCD Import Glucose 102 mg/dL High 70-100 mg/dL Glucose-Ua 01/25/2019 N2N/CCD Import Glucose-Ua Negative Negative Hematocrit 01/25/2019 N2N/CCD Import Hematocrit 41 % Low 42-52 % Hemoglobin 01/25/2019 N2N/CCD Import Hemoglobin 14.3 g/dL 14.0-18.0 g/dL 1 Because ethnic data is not always readily available, this report includes an eGFR for both -Americans and non- Americans. The National Kidney Disease Education Program (NKDEP) does not endorse the use of the MDRD equation for patients that are not between the ages of 18 and 70, are , have extremes of body size, muscle mass, or nutritional status, or are non- or non-. According to the [employer], irrespective of diagnosis, the stage of the disease is based on the level of kidney function: Stage Description GFR(mL/min/1.73 m(2)) 1 Kidney damage with normal or decreased GFR 90 2 Kidney damage with mild decrease in GFR 60-89 3 Moderate decrease in GFR 30-59 4 Severe decrease in GFR 15-29 5 Kidney failure <15 (or dialysis) 2 Specimen Hemolyzed. Result may not be valid. Unable to report test result due to hemolysis. 3 Unable to report test result due to hemolysis. 4 Therapeutic concentration: <50 ug/mL Toxic concentration: >120 ug/mL 5 The urine specimen was tested at the listed cutoffs: Drug class test level (ng/mL) Amphetamines 500 Barbiturates 200 Benzodiazepine metabolites 200 Cocaine metabolites 150 Cannabinoids 50 Opiates 300 Pcp 25 Specimen was received without chain of custody. Results should be used for medical purposes only. 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 Aerococcus are usually susceptible to penicillin, amoxicillin, piperacillin, cefipime, rifampin and vancomycin. Moderate to good activity occurs with the quinolones, tetracyclines and erythromycin. (M[employer]'s Color [place] and Textbook of Diagnostic Microbiology 6th Ed. 2006, p. 705-6.) * ML - Main Lab . END OF REPORT DEPARTMENT OF PATHOLOGY, [address] [place] [address] Rodolfo Rosales M.D. Director [facility] # [id number] Troponin-I testing on Plasma Separator Tubes (PST) has a known false positive rate of 0.20-0.40%. All positive troponins reflex immediately to secondary confirmatory testing. Using the [employer] DxI 800 Access Immunoassay systems, the 99th percentile upper reference limit was demonstrated to be < 0.03 ng/mL. 8 Troponin-I testing on Plasma Separator Tubes (PST) has a known false positive rate of 0.20-0.40%. All positive troponins reflex immediately to secondary confirmatory testing. Using the [employer] DxI 800 Access Immunoassay systems, the 99th percentile upper reference limit was demonstrated to be < 0.03 ng/mL. 9 [facility] Severe Sepsis and Septic Shock Management Bundle Measure requires all lactic acids initially measuring >2.0 mmol/L be repeated. 10 Because ethnic data is not always readily available, this report includes an eGFR for both -Americans and non- Americans. The National Kidney Disease Education Program (NKDEP) does not endorse the use of the MDRD equation for patients that are not between the ages of 18 and 70, are , have extremes of body size, muscle mass, or nutritional status, or are non- or non-. According to the National Kidney Foundation, irrespective of diagnosis, the stage of the disease is based on the level of kidney function: Stage Description GFR(mL/min/1.73 m(2)) 1 Kidney damage with normal or decreased GFR 90 2 Kidney damage with mild decrease in GFR 60-89 3 Moderate decrease in GFR 30-59 4 Severe decrease in GFR 15-29 5 Kidney failure <15 (or dialysis) 11 [id number] 12 SEE RESULT BELOW Name: KRZYSZTOF BANEGAS : [address]: Lyle Lizama MD Acct: [id number] Unit: [id number] AGE: 53 Location: [facility] Re05/15/19 SEX: M Status: DEP ER SPEC: [id number] SHAKIR: 05/15/19 [facility] DR: Vamsi Sharma NP REQ: [id number] RECD: 05/16/19-1226 STATUS: ELVIRA BRENNAN DR: Lyle Martinez 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 Aerococcus are usually susceptible to penicillin, amoxicillin, piperacillin, cefipime, rifampin and vancomycin. Moderate to good activity occurs with the quinolones, tetracyclines and erythromycin. (Mynor's Color Naper and Textbook of Diagnostic Microbiology 6th Ed. 2006, p. 705-6.) * ML - Main Lab . END OF REPORT DEPARTMENT OF PATHOLOGY, [address] [place] [address] Rodolfo Rosales M.D. Director [facility] # [id number] Donor Relations Associate: [id number] Procedures Date Code Description Status 01/31/2019 58480 Brief Emotional/Behav Assessment W/ Scoring Doc Per Completed Standard Inst Medical Devices Description No Information Available Encounters Type Date Location Provider Dx Diagnosis Office Visit 06/29/2019 10:00a M Main ELIZABETH Barajas R05 Cough J06.9 Acute upper respiratory infection, unspecified Assessments Date Code Description Provider 06/29/2019 R05 Cough ELIZABETH Barajas 06/29/2019 J06.9 Acute upper respiratory infection, unspecified ELIZABETH Barajas 05/11/2019 Z23 Encounter for immunization Nurse Plan of Treatment 06/29/2019 - DARRYN BarajasPR05 CoughComments:disucssed cough that causes pain in chest start taking robitussin for cough increase fluids and resttake acetaminophen for headache as needed return if no imporvement discussed signs and symptoms of when to seek emergent careJ06.9 Acute upper respiratory infection, unspecifiedAllNew Medication:Guaifenesin/Pseudoephedrine Hydrochloride 60-600 mg - 2 tab by mouth twice a dayGuaifenesin ER 1200 mg - 1 tab by mouth twice a day Functional Status Description No Information Available Mental Status Description No Information Available Referrals Description No Information Available
--- OUTSIDE RECORDS SUMMARY | 2019-07-19 15:53 | XMS REPORT ---
:1965 Author Organization [facility] Care Team Providers Name Role Phone Krzysztof Mina Primary Care Physician Unavailable Allergies, Adverse Reactions, Alerts Allergy Code CodeSystem Reaction Severity Criticality Status Start Substance Date nkda Moderate Active Medications Medication Medication Medication Start Stop Route Dose Status Fill Code CodeSystem Date Date Instructions prazosin 964359 RxNorm oral 1 mg active for 90 7-05 capsule day(s) ziprasidone 466650 RxNorm 2019- oral 80 mg completed for 30 HCl - 07-11 capsule day(s) zolpidem 843544 RxNorm 2019- oral 10 mg 1 completed 1 tablet at - 06-05 tablet at bedtime for bedtime 30 day(s) ziprasidone 998465 RxNorm 2020- oral 80 mg 1 active Take 1 HCl 7-11 01-07 capsule capsule twice a twice a day day for 30 day(s) duloxetine 279298 RxNorm 2019- oral 30 mg 1 active Take 1 7-16 10-14 capsule,d capsule once elayed a day for 30 release(D day(s) R/EC) once a day duloxetine 041679 RxNorm 2019- oral 30 mg completed for 30 - 04-15 capsule,d day(s) elayed release(D R/EC) duloxetine 166406 RxNorm 2019- oral 60 mg completed for 30 1-03 04-15 capsule,d day(s) elayed release(D R/EC) quetiapine 876047 RxNorm 2019- oral 50 mg completed for 30 07-12 tablet day(s) duloxetine 641012 RxNorm oral 60 mg 1 active Take 1 8-13 capsule,d capsule once elayed a day for 30 release(D day(s) R/EC) once a day zolpidem 176576 RxNorm 2019- oral 10 mg 1 completed Take 1 tablet 6-10 07-10 tablet at at bedtime bedtime for 30 day(s) zolpidem 318129 RxNorm oral 10 mg 1 active Take 1 tablet 8-13 tablet at by mouth at bedtime bedtime for 30 day(s) zolpidem 211632 RxNorm 2019- oral 5 mg completed for 30 05-06 tablet day(s) duloxetine 095188 RxNorm 2018- oral 60 mg 1 completed Take 1 4-15 07-14 capsule,d capsule once elayed a day for 30 release(D day(s) R/EC) once a day quetiapine 498233 RxNorm 2018- oral 50 mg 1 active Take 1 tablet 7-12 10-10 tablet three times three a day as times a needed for 30 day day(s) nicotine 366297 RxNorm 2018- bucl 2 mg 1 completed Chew 1 piece (polacrilex) 02-03-19 gum as as directed directed as needed for 30 day(s) duloxetine 883723 RxNorm 2019- oral 30 mg 1 completed Take 1 4-15 07-14 capsule,d capsule once elayed a day for 30 release(D day(s) R/EC) once a day zolpidem 502428 RxNorm 2019- oral 10 mg completed 06-10 tablet zolpidem 670068 RxNorm 2019- oral 10 mg 1 completed Take 1 tablet 7-12 08-11 tablet at by mouth at bedtime bedtime for 30 day(s) Problems Problem Name Code CodeSystem Alternate Alternate Start End Status Narrative Code CodeSystem Date Date 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 3-22 disorder, unspecified Post-traumat 09382581 SNOMED-CT Active ic stress 3-22 disorder, unspecified Post-traumat 52872079 SNOMED-CT Active ic stress 3-22 disorder, unspecified Post-traumat 59978356 SNOMED-CT Active ic stress 3-22 disorder, unspecified Relevant diagnostic tests/laboratory data Narrative No Information Procedures Procedure Code CodeSystem Target Date of Status Service Device Device Device Name Site Procedure Delivery Code Name UID Location Psychotherap 815185 SNOMED-CT () 2019-03-03 complete Mental y, 30 87 d Health- minutes with [place] patient when [address] with an [facility] and [facility], service [id number] (List [id number] separately in addition to the code for primary procedure) Psychotherap 692706 SNOMED-CT () 2019-06-16 complete Mental y, 45 04 d Health- minutes with [place] patient [address], [id number] Psychotherap 211028 SNOMED-CT () 2019-04-14 complete Mental y, 45 04 d Health- minutes with [place] patient [address], [id number] [phone] Office or [id number] SNOMED-CT () 2019-04-12 complete Mental other 7 d Health- outpatient [place] visit for [address], [facility] [id number] patient, [phone] which requires at least 2 of these 3 colin components: An expanded problem focused history; An expanded problem focused examination; Medical decision making of low Office or 083873 SNOMED-CT () 2018-12-15 complete Mental other 7 d Health- outpatient [place] visit for [address], established [id number] patient, [phone] which requires at least 2 of these 3 colin components: An expanded problem focused history; An expanded problem focused examination; Medical decision making of low Office or 197257 SNOMED-CT () 2019-03-03 complete Mental other 7 d Health- outpatient [place] visit for [address], established [id number] patient, [phone] which requires at least 2 of these 3 colin components: An expanded problem focused history; An expanded problem focused examination; Medical decision making of low Office or 764144 SNOMED-CT () 2019-02-03 complete Mental other 7 d Health- outpatient [place] visit for [address], established [id number] patient, [phone] which requires at least 2 of these 3 colin components: An expanded problem focused history; An expanded problem focused examination; Medical decision making of [facility] Office or 789400 SNOMED-CT () 2018-12-29 complete Mental other 6 d Health- outpatient [place] visit for [address], established [id number] patient, [phone] which requires at least 2 of these 3 colin components: A problem focused history; A problem focused examination; Straight[place]w giuseppe medical decision making. Counselin Office or [id number] SNOMED-CT () 2019-05-24 complete Mental other 6 d Health- outpatient [place] visit for [address], established [phone] patient, [phone] which requires at least 2 of these 3 colin components: A problem focused history; A problem focused examination; Straightforw giuseppe medical decision making. [facility] SNOMED-CT () 2019-03-02 complete Mental d [address], [id number] [phone] SNOMED-CT () 2018-11-25 complete Mental d [address], [id number] SNOMED-CT () 2018-12-09 complete Mental d [address], [id number] SNOMED-CT () 2019-03-24 complete Mental d [address], [id number] SNOMED-CT () 2019-02-02 complete Mental d [address], [id number] SNOMED-CT () 2019-05-05 [facility] Mental d [address], [id number] [id number] SNOMED-CT () 2019-02-24 complete Mental d [address], [id number] [phone] Encounters/Encounter Diagnoses Encounter Encounter Diagnosis Diagnosis Name Diagnosis Date of Service Name Code Code CodeSystem Diagnosis Delivery Location [id number] Post-traumatic SNOMED-CT Behavioral stress Health disorder, Clinic , , unspecified , Vital Signs No Information Social History Element Description Description Start End Code CodeSystem AdditionalInfo Date Date SexAssignedAtBirth Male 1966-0 M AdministrativeGender 3-19 Hospital Discharge Instructions Reason For Referral Medical Equipment FDA Assessments
--- OUTSIDE RECORDS SUMMARY | 2019-07-19 15:54 | XMS REPORT | Continuity of Care Document ---
:1965 External Reference #:[id number] Author Name ELIZABETH Barajas Address [address] [place] [address] Problems Active Problems Provider Date Chronic kidney disease Onset: 08/03/2018 Lower urinary tract symptoms due to benign prostatic Onset: 02/21/2018 hypertrophy Hypothyroidism Onset: 04/22/2017 Bilateral cataracts Onset: 01/31/2017 Amblyopia Onset: 01/31/2017 Allergic rhinitis Onset: 11/07/2015 Pure hyperglyceridemia Onset: 05/17/2012 Inactive Problems Acute exacerbation of chronic abdominal pain Onset: 01/05/2019 Inactive: 01/05/2019 Stomach ache Onset: 01/14/2019 Inactive: 01/14/2019 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 Inactive: 01/14/2019 Diarrhea Onset: 01/25/2019 Inactive: 01/25/2019 Lactose intolerance Onset: 01/31/2019 Inactive: 01/31/2019 Nausea and vomiting Onset: 03/17/2019 Inactive: 03/17/2019 Abdominal pain Onset: 03/18/2019 Inactive: 03/18/2019 Dysuria Onset: 03/18/2019 Inactive: 03/18/2019 Abnormal urination Onset: 03/23/2019 Inactive: 03/23/2019 Increased frequency of urination Onset: 03/24/2019 Inactive: 03/24/2019 Social History Type Date Description Comments Sex Unknown Tobacco Use Start: Unknown Light tobacco smoker (10 or fewer cigarettes/day) Smoking Status Reviewed: 06/29/19 Light tobacco smoker (10 or fewer cigarettes/day) Allergies, Adverse Reactions, Alerts Description No Information Available Medications Active Medications SIG Qnty Indications Ordering Date Provider Guaifenesin ER 1 tab by mouth 20tabs ELIZABETH Barajas 06/29/2019 1200mg twice a day Tablets ER 12HR Atorvastatin Calcium Take 1 Tablet By 90tabs ELIZABETH Barajas 05/31/2019 Mouth AT Bedtime 20mg Tablets Omeprazole Oral; Take One 30caps Unknown 04/13/2019 40mg Capsule By Mouth Capsules Once Daily Prazosin HCL 2 at bedtime Oral 180caps [...] Strength teaspoonsful (20ml) by mouth twice a 326-616-19pm/5ML day Suspension Probiotic 1 daily Oral 30caps Unknown 08/12/2018 Capsules Cetirizine HCL Oral; Take One 30tabs Unknown 07/19/2018 10mg Tabletby Mouth Once Tablets Daily as Needed Dicyclomine HCL 1 twice daily prn 120tabs Unknown 07/12/2018 20mg Oral Tablets Lidotrex Apply four times 45units Unknown 07/12/2018 2% Gel each day External Doxazosin Mesylate 1 at bedtime Oral 30tabs Unknown 06/25/2018 4mg Tablets Duloxetine HCL 1 daily Oral Unknown 03/23/[address] Paul Parker 1 twice daily Oral Unknown 03/23/2018 80mg Capsules Lipitor 1 at bedtime oral 90tabs Rosalia 02/18/2018 20mg Tablets [place], DO Omeprazole 1 daily Oral 30caps Unknown 02/18/2018 20mg Capsules Topjongmate 1 daily Oral 30tabs Unknown 11/24/2017 100mg [...] (Ergocalciferol) Capsule By Mouth Once A Month 88584Ycme Capsules History Medications Bactrim DS 1 twice daily Oral 6tabs Unknown 03/17/2019 - 03/20/2019 800-160mg Tablets Omeprazole 1 daily Oral 30caps Unknown 03/17/2019 - 04/13/[address] Francois CPT Code Status Date Vaccine Lot # [id number] Given 05/11/2019 Flu < 65 years [id number] 91683 Given 05/11/2018 Influenza Virus Vaccine, Quadrivalent, Split Virus, Im Use 0.5ML 01225 Given 05/11/2018 Flu < 65 years 60306 Given 05/11/2018 Influenza Virus Vaccine, Quadrivalent, Split, Preservative Free 18419 Given 05/11/2018 Flumist 77764 Given 05/11/2018 Flu High Dose 11081 Given 05/11/2018 Influenza Virus Vaccine, Split, Preserv Free, Intradermal Use 25988 Given 04/22/2017 Influenza Virus Vaccine, Quadrivalent, Split Virus, Im Use 0.5ML 46752 Given 04/22/2017 Flu < 65 years 70107 Given 04/22/2017 Influenza Virus Vaccine, Quadrivalent, Split, Preservative Free 31563 Given 04/22/2017 Flumist 55223 Given 04/22/2017 Flu High Dose 60111 Given 04/22/2017 Influenza Virus Vaccine, Split, Preserv Free, Intradermal Use 80153 Given 06/16/2016 Influenza Virus Vaccine, Split, Preserv Free, Intradermal Use 19529 Given 06/16/2016 Flu High Dose 94300 Given 06/16/2016 Flumist 73138 Given 06/16/2016 Influenza Virus Vaccine, Quadrivalent, Split, Preservative Free 44999 Given 06/16/2016 Flu < 65 years 31368 Given 06/16/2016 Influenza Virus Vaccine, Quadrivalent, Split Virus, Im Use 0.5ML 48451 Given 06/07/2014 Influenza Virus Vaccine, Quadrivalent, Split, Im Use 0.25ML 47388 Given 06/07/2014 Influenza Virus Vaccine, Quadrivalent, Split, Im Use 0.25ML 07983 Given 06/07/2014 Influenza Virus Vaccine, Quadrivalent, Split, Im Use 0.25ML 51924 Given 06/07/2014 Flu < 65 years 38600 Given 06/07/2014 Influenza Virus Vaccine, Quadrivalent, Split, Preservative Free 47611 Given 06/07/2014 Flumist 51670 Given 06/07/2014 Flu High Dose 45167 Given 05/18/2013 Flu High Dose 97130 Given 05/18/2013 Flumist 04425 Given 05/18/2013 Influenza Virus Vaccine, Quadrivalent, Split, Preservative Free 27203 Given 05/18/2013 Flu < 65 years 95612 Given 05/18/2013 Influenza Virus Vaccine, Quadrivalent, Split, Im Use 0.25ML 87904 Given 05/18/2013 Influenza Virus Vaccine, Quadrivalent, Split, Im Use 0.25ML 01679 Given 05/18/2013 Influenza Virus Vaccine, Quadrivalent, Split, Im Use 0.25ML Q2038 Given 05/18/2013 Influenza Vaccine (Fluzone) Administered Age 3 And Older 73833 Given 04/07/2012 Flu High Dose 94351 Given 04/07/2012 Flumist 79975 Given 04/07/2012 Influenza Virus Vaccine, Quadrivalent, Split, Preservative Free 48964 Given 04/07/2012 Flu < 65 years 11501 Given 04/07/2012 Influenza Virus Vaccine, Quadrivalent, Split, Im Use 0.25ML 67687 Given 04/07/2012 Influenza Virus Vaccine, Quadrivalent, Split, Im Use 0.25ML 94285 Given 04/07/2012 Influenza Virus Vaccine, Quadrivalent, Split, Im Use 0.25ML 63651 Given 04/07/2012 Tdap - Boostrix/Adacel 09025 Given 04/07/2012 Pneumovax - for >=2years - PPSV23 Q2038 Given 04/07/2012 Influenza Vaccine (Fluzone) Administered Age 3 And Older Q2038 Given 06/16/2011 Influenza Vaccine (Fluzone) Administered Age 3 And Older 08156 Given 06/16/2011 Influenza Virus Vaccine, Quadrivalent, Split, Im Use 0.25ML 79217 Given 06/16/2011 Influenza Virus Vaccine, Quadrivalent, Split, Im Use 0.25ML 23289 Given 06/16/2011 Influenza Virus Vaccine, Quadrivalent, Split, Im Use 0.25ML 63724 Given 06/16/2011 Flu < 65 years 48508 Given 06/16/2011 Influenza Virus Vaccine, Quadrivalent, Split, Preservative Free 38977 Given 06/16/2011 Flumist 81639 Given 06/16/2011 Flu High Dose Vital Signs [...] Date Facility Test Result H/L Range Note Laboratory test 06/29/2019 [facility] Troponin-I 0.02 ng/mL < 0.04 [address] (TnI) [place] [address] [phone] CBC Auto Diff 06/28/2019 [facility] White 7.3 10^3/uL Normal 3.5-10.[address] [place] [address] Count [phone] Red Blood Count 4.63 10^6/uL Normal 4.18-5.48 [...] % Nucleated Red Blood Cells % 0.0 Comp Metabolic 06/28/2019 [facility] Sodium 138 mmol/L Normal 135-[address] [place] [address] [phone] Potassium 3.8 mmol/L Normal 3.5-5.0 Chloride 107 [...] Egfr Non- 64.1 >60 Egfr 77.5 >60 2 Laboratory test 06/28/2019 [facility] Troponin-I (TnI) 0.01 ng/ mL <0.[address] [place] [address] [phone] Lactic Acid 1.3 mmol/L Normal 0.5-2.0 4 Urine Culture And 05/15/2019 [facility] Urine SEE RESULT 5 , [address] Culture BELOW [place], [place] [id number] [phone] Poc Urinalysis 05/15/2019 [facility] Poc Negative Negative [address] Glucose, [place] [address] Urine [phone] Poc Bilirubin, Urine Negative Negative Poc Ketone, Urine Negative Negative Poc Specific [place], Urine 1.025 Normal 1.010-1.030 Poc Blood, Urine Negative Negative Poc pH, Urine 5.0 Normal 5-9 Poc Protein, Urine Negative Negative Poc Urobilinogen, Urine 0.2 Negative Poc Nitrite, Urine Negative Negative Poc Leukocytes, Urine 1+ Abnormal Negative Poc Color, Urine Yellow Poc Clarity, Urine Cloudy 7 Urobilinogen-Ua 03/24/2019 N2N/CCD Import Urobilinogen-Ua neg Negative [...] N2N/CCD Import MPV 7.9 fL 7.4-10.4 fL Mitchell% 02/24/2019 N2N/CCD Import Mitchell% 10.7 % High 0 - 10 % Mitchell# 02/24/2019 N2N/CCD Import Mitchell# 0.8 0-0.8 10 10_3/ul 3/ul MCV 02/24/2019 [...] N2N/CCD Import MPV 7.8 fL 7.4-10.4 fL Mitchell% 01/25/2019 N2N/CCD Import Mitchell% 12.9 % High 0 - 10 % Mitchell# 01/25/2019 N2N/CCD Import Mitchell# 0.7 0-0.8 10 10_3/ul 3/ul MCV 01/25/2019 [...] Import Hemoglobin 14.3 g/dL 14.0-18.0 g/dL 1 Troponin-I testing on Plasma Separator Tubes (PST) has a known false positive rate of 0.20-0.40%. All positive troponins reflex immediately to secondary confirmatory testing. Using the [employer] DxI 800 Access Immunoassay systems, the 99th percentile upper reference limit was demonstrated to be < 0.03 ng/mL. 2 Because ethnic data is not always readily [...] 15-29 5 Kidney failure <15 (or dialysis) 3 Troponin-I testing on Plasma Separator Tubes (PST) has a known false positive rate of 0.20-0.40%. All positive troponins reflex immediately to secondary confirmatory testing. Using the [employer] DxI 800 Access Immunoassay systems, the 99th percentile upper reference limit was demonstrated to be < 0.03 ng/mL. 4 [facility] Severe Sepsis and Septic Shock Management Bundle Measure requires all lactic acids initially measuring >2.0 mmol/L be repeated. 5 [id number] 6 SEE RESULT BELOW Name: KRZYSZTOF BANEGAS : [address]: Lyle Lizama MD Acct: [id number] Unit: [id number] AGE: 53 Location: [facility] Re05/15/19 SEX: M Status: DEP ER SPEC: [id number] SHAKIR: 05/15/19-1336 [facility] DR: Vamsi Sharma SENIOR SALES MANAGER REQ: [id number] RECD: 05/16/19-1226 STATUS: ELVIRA [facility] DR: Lyle Martinez SENIOR SALES MANAGER _ SOURCE: URINE SPDESC: ORDERED: Urine Culture COMMENTS: [id number] QUERIES: Urine Source: Random Procedure Result Reported Site Urine Culture Final 05/18/19- 1134 ML Organism 1 AEROCOCCUS VIRIDANS [place] Count >100,000 (Many) CFU/ML Aerococcus isolates are too fastidious for routine susceptibility studies. Aerococcus are usually susceptible to penicillin, amoxicillin, piperacillin, cefipime, rifampin and vancomycin. Moderate to good activity occurs with the quinolones, tetracyclines and erythromycin. (M[employer]or's Color [place] and Textbook of Diagnostic Microbiology 6th Ed. 2006, p. 705-6.) * ML - Main Lab . END OF REPORT DEPARTMENT OF PATHOLOGY, [address] [place] [address] Rodolfo Rosales M.D. Director [facility] # [id number] Eggs Inspector: [id number] Procedures Date Code Description Status 01/31/2019 05627 Brief Emotional/Behav Assessment W/ Scoring Doc Per Completed Standard Inst Medical Devices Description No Information Available Encounters Type Date Location Provider Dx Diagnosis Office Visit 06/29/2019 10:00a [facility] Main ELIZABETH Barajas R05 Cough J06.9 Acute upper respiratory infection, unspecified Assessments Date Code Description Provider 06/29/2019 R05 Cough ELIZABETH Barajas 06/29/2019 J06.9 Acute upper respiratory infection, unspecified ELIZABETH Barajas 05/11/2019 Z23 Encounter for immunization Nurse Plan of Treatment 06/29/2019 - CECY Barajas05 CoughComments:disucssed cough that causes pain in chest start taking robitussin for cough increase fluids and resttake acetaminophen for headache as needed return if no imporvement discussed signs and symptoms of when to seek emergent careJ06.9 Acute upper respiratory infection, unspecifiedAllNew Medication:Guaifenesin ER 1200 mg - 1 tab by mouth twice a day Functional Status Description No Information Available Mental Status Description No Information Available Referrals Description No Information Available
--- OUTSIDE RECORDS SUMMARY | 2019-07-19 15:54 | XMS REPORT | Continuity of Care Document ---
:1965 External Reference #:[id number] Author Name ELIZABETH Barajas Address [address] [place] [address] Problems Active Problems Provider Date Chronic kidney [...] Strength teaspoonsful (20ml) by mouth twice a 610-516-25sb/5ML day Suspension Probiotic 1 daily Oral 30caps [...] (Ergocalciferol) Capsule By Mouth Once A Month [id number] Capsules History Medications Guaifenesin ER 1 tab by mouth 20tabs Chelsie Martinez, PRINTING ESTIMATOR 06/29/2019 - 1200mg twice a day 06/29/2019 Tablets ER 12HR Bactrim DS 1 twice daily 6tabs Unknown 03/17/2019 - 800-160mg Oral 03/20/2019 Tablets Omeprazole 1 daily Oral 30caps Unknown 03/17/2019 - 40mg Capsules 04/13/2019 Immunizations CPT Code Status Date Vaccine Lot # [id number] Given 05/11/2019 Flu < 65 years 5mm97 49095 Given 05/11/2018 Influenza Virus Vaccine, Quadrivalent, Split Virus, Im Use 0.5ML 57541 Given 05/11/2018 Flu < 65 years 93077 Given 05/11/2018 Influenza Virus Vaccine, Quadrivalent, Split, Preservative Free 72039 Given 05/11/2018 Flumist 46222 Given 05/11/2018 Flu High Dose 41285 Given 05/11/2018 Influenza Virus Vaccine, Split, Preserv Free, Intradermal Use 83372 Given 04/22/2017 Influenza Virus Vaccine, Quadrivalent, Split Virus, Im Use 0.5ML 82521 Given 04/22/2017 Flu < 65 years 16269 Given 04/22/2017 Influenza Virus Vaccine, Quadrivalent, Split, Preservative Free 64890 Given 04/22/2017 Flumist 37984 Given 04/22/2017 Flu High Dose 43157 Given 04/22/2017 Influenza Virus Vaccine, Split, Preserv Free, Intradermal Use 94661 Given 06/16/2016 Influenza Virus Vaccine, Split, Preserv Free, Intradermal Use 00900 Given 06/16/2016 Flu High Dose 22242 Given 06/16/2016 Flumist 20209 Given 06/16/2016 Influenza Virus Vaccine, Quadrivalent, Split, Preservative Free 84523 Given 06/16/2016 Flu < 65 years 50934 Given 06/16/2016 Influenza Virus Vaccine, Quadrivalent, Split Virus, Im Use 0.5ML 41756 Given 06/07/2014 Influenza Virus Vaccine, Quadrivalent, Split, Im Use 0.25ML 67142 Given 06/07/2014 Influenza Virus Vaccine, Quadrivalent, Split, Im Use 0.25ML 18619 Given 06/07/2014 Influenza Virus Vaccine, Quadrivalent, Split, Im Use 0.25ML 68623 Given 06/07/2014 Flu < 65 years 33687 Given 06/07/2014 Influenza Virus Vaccine, Quadrivalent, Split, Preservative Free 35854 Given 06/07/2014 Flumist 30542 Given 06/07/2014 Flu High Dose 92692 Given 05/18/2013 Flu High Dose 35958 Given 05/18/2013 Flumist 13805 Given 05/18/2013 Influenza Virus Vaccine, Quadrivalent, Split, Preservative Free 86226 Given 05/18/2013 Flu < 65 years 04590 Given 05/18/2013 Influenza Virus Vaccine, Quadrivalent, Split, Im Use 0.25ML 24239 Given 05/18/2013 Influenza Virus Vaccine, Quadrivalent, Split, Im Use 0.25ML 27792 Given 05/18/2013 Influenza Virus Vaccine, Quadrivalent, Split, Im Use 0.25ML Q2038 Given 05/18/2013 Influenza Vaccine (Fluzone) Administered Age 3 And Older 96061 Given 04/07/2012 Flu High Dose 91501 Given 04/07/2012 Flumist 67018 Given 04/07/2012 Influenza Virus Vaccine, Quadrivalent, Split, Preservative Free 64179 Given 04/07/2012 Flu < 65 years 51563 Given 04/07/2012 Influenza Virus Vaccine, Quadrivalent, Split, Im Use 0.25ML 29965 Given 04/07/2012 Influenza Virus Vaccine, Quadrivalent, Split, Im Use 0.25ML 55848 Given 04/07/2012 Influenza Virus Vaccine, Quadrivalent, Split, Im Use 0.25ML 95757 Given 04/07/2012 Tdap - Boostrix/Adacel 37430 Given 04/07/2012 Pneumovax - for >=2years - PPSV23 Q2038 Given 04/07/2012 Influenza Vaccine (Fluzone) Administered Age 3 And Older Q2038 Given 06/16/2011 Influenza Vaccine (Fluzone) Administered Age 3 And Older 20438 Given 06/16/2011 Influenza Virus Vaccine, Quadrivalent, Split, Im Use 0.25ML 90170 Given 06/16/2011 Influenza Virus Vaccine, Quadrivalent, Split, Im Use 0.25ML 10097 Given 06/16/2011 Influenza Virus Vaccine, Quadrivalent, Split, Im Use 0.25ML 86989 Given 06/16/2011 Flu < 65 years 91389 Given 06/16/2011 Influenza Virus Vaccine, Quadrivalent, Split, Preservative Free 21320 Given 06/16/2011 Flumist 76757 Given 06/16/2011 Flu High Dose Vital Signs [...] Result H/L Range Note CBC Auto 07/17/2019 [facility] White Blood 8.7 10^3/uL Normal 3.5-10.[address] [place] [address] [phone] Red Blood Count 5.02 10^6/uL Normal 4.18-5.48 [...] Blood Cells % 0.1 Comp Metabolic 07/17/2019 [facility] Sodium 137 mmol/L Normal 135-[address] [place] [address] [phone] Chloride 108 mmol/L Normal 101-111 Co2 Carbon [...] TNP U/L 13-39 3 Laboratory test 07/17/2019 [facility] Acetaminophen < 15 g/mL 4 finding [address] [place] [address] [phone] Alcohol < 10 mg/dL Normal <10 Salicylate < 2.50 mg/dL <30 TSH (Thyroid Stim Horm) 1.98 mcIU/mL Normal 0.34-5.60 Urinalysis Profile 07/17/2019 [facility] Urine Color Yellow [address] [place] [address] [phone] Urine Appearance Turbid Urine Specific [place] 1.018 Normal 1.010-1.030 Urine pH 7.0 Normal [...] Sperm Present Abnormal Absent Urine Drug 07/17/2019 [facility] Urine None Detected None Detect SCR ED & [address] [facility] [place] [address] Screen [phone] Urine Barbiturates Screen None Detected None Detect Urine Benzodiazepine Screen None Detected None Detect Urine Cannabinoids Screen None Detected None Detect Urine Cocaine Screen None Detected None Detect Urine Opiates Screen None Detected None Detect Urine Phencyclidine Screen None Detected None Detect 5 Laboratory test 06/29/2019 [facility] Troponin-I 0.02 <0.04 [address] (TnI) ng/[place] [address] [phone] CBC Auto Diff 06/28/2019 [facility] White Blood 7.3 Normal 3.5 -10.[address] Count 10^3/[place] [address] [phone] Red Blood Count 4.63 10^6/uL Normal 4.18-5.48 [...] Blood Cells % 0.0 Comp Metabolic 06/28/2019 [facility] Sodium 138 mmol/L Normal 135-[address] [place] [address] [phone] Potassium 3.8 mmol/L Normal 3.5-5.0 Chloride 107 [...] Egfr Non- 64.1 >60 Egfr 77.5 >60 7 Laboratory test 06/28/2019 [facility] Troponin-I (TnI) 0.01 ng/ mL <0.04 [address] [place], [place] [id number] [phone] Lactic Acid 1.3 mmol/L Normal 0.5-2.0 9 Urine Culture And 05/15/2019 [facility] Urine SEE RESULT 10 , [address] [place] [address] [phone] Poc Urinalysis 05/15/2019 [facility] Poc Negative Negative [address] Glucose, [place] [address] Urine [phone] Poc Bilirubin, Urine Negative Negative Poc Ketone, Urine Negative Negative Poc Specific [place], Urine 1.025 Normal 1.010-1.030 Poc Blood, Urine Negative Negative Poc pH, Urine 5.0 Normal 5-9 Poc Protein, Urine Negative Negative Poc Urobilinogen, Urine 0.2 Negative Poc Nitrite, Urine Negative Negative Poc Leukocytes, Urine 1+ Abnormal Negative Poc Color, Urine Yellow Poc Clarity, Urine Cloudy 12 Urobilinogen-Ua 03/24/2019 N2N/CCD Import Urobilinogen-Ua neg Negative [...] N2N/CCD Import MPV 7.9 fL 7.4-10.4 fL Norman% 02/24/2019 N2N/CCD Import [place]% 10.7 % High 0 - 10 % Norman# 02/24/2019 N2N/CCD Import [place]# 0.8 0-0.8 10 10_3/ul 3/ul MCV 02/24/2019 [...] N2N/CCD Import MPV 7.8 fL 7.4-10.4 fL Norman% 01/25/2019 N2N/CCD Import [place]% 12.9 % High 0 - 10 % Norman# 01/25/2019 N2N/CCD Import [place]# 0.7 0-0.8 10 10_3/ul 3/ul MCV 01/25/2019 [...] be used for medical purposes only. 6 Troponin-I testing on Plasma Separator Tubes (PST) has a known false positive rate of 0.20-0.40%. All positive troponins reflex immediately to secondary confirmatory testing. Using the [employer] DxI 800 Access Immunoassay systems, the 99th percentile upper reference limit was demonstrated to be < 0.03 ng/mL. 7 Because ethnic data is not always readily [...] 15-29 5 Kidney failure <15 (or dialysis) 8 Troponin-I testing on Plasma Separator Tubes (PST) has a known false positive rate of 0.20-0.40%. All positive troponins reflex immediately to secondary confirmatory testing. Using the [employer] DxI 800 Access Immunoassay systems, the 99th percentile upper reference limit was demonstrated to be < 0.03 ng/mL. 9 [facility] Severe Sepsis and Septic Shock Management Bundle Measure requires all lactic acids initially measuring >2.0 mmol/L be repeated. 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 Aerococcus are usually susceptible to penicillin, amoxicillin, piperacillin, cefipime, rifampin and vancomycin. Moderate to good activity occurs with the quinolones, tetracyclines and erythromycin. ([employer] Color [place] and Textbook of Diagnostic Microbiology 6th Ed. 2006, p. 705-6.) * - Main Lab . END OF REPORT DEPARTMENT OF PATHOLOGY, [address] [place] [address] Rodolfo Rosaels M.D. Director [facility] # [id number] 12 [place]: [id number] Procedures Date Code Description Status 01/31/2019 98797 Brief Emotional/Behav Assessment W/ Scoring Doc Per Completed Standard Inst Medical Devices Description No Information Available Encounters Type Date Location Provider Dx Diagnosis Office Visit 06/29/2019 10:00a [facility] Main ELIZABETH Barajas R05 Cough J06.9 Acute upper respiratory infection, unspecified Assessments Date Code Description Provider 06/29/2019 R05 ELIZABETH Moncada 06/29/2019 J06.9 Acute upper respiratory infection, unspecified ELIZABETH Barajas 05/11/2019 Z23 Encounter for immunization Nurse Plan of Treatment 06/29/2019 - RTISTON Barajas CoughComments:disucssed cough that causes pain in chest [...]
--- OUTSIDE RECORDS SUMMARY | 2019-07-19 15:54 | XMS REPORT | Continuity of Care Document ---
:1965 External Reference #:[id number] Author Name ELIZABETH Barajas Address [address] [place] [address] Problems Active Problems Provider Date Chronic kidney [...] Unknown 04/13/2019 40mg Capsule By Mouth Capsules DR Once Daily Prazosin HCL 2 at bedtime [...] Strength teaspoonsful (20ml) by mouth twice a 596-455-83iz/5ML day Suspension Probiotic 1 daily Oral 30caps [...] Oral Unknown 03/23/[address] Miller Lipitor 1 at bedtime oral 90tabs Rosalia 02/18/2018 20mg Tablets [place], DO Omeprazole 1 daily Oral 30caps Unknown 02/18/2018 20mg Capsules Topiramate 1 daily Oral 30tabs Unknown 11/24/2017 100mg [...] (Ergocalciferol) Capsule By Mouth Once A Month [id number] Capsules History Medications Guaifenesin ER 1 tab by mouth 20tabs Chelsie Martinez, COST AND RISK ANALYSIS MANAGER 06/29/2019 - 1200mg twice a day 06/29/2019 Tablets ER 12HR Bactrim DS 1 twice daily 6tabs Unknown 03/17/2019 - 800-160mg Oral 03/20/2019 Tablets Omeprazole 1 daily Oral 30caps Unknown 03/17/2019 - 40mg Capsules 04/13/2019 Immunizations CPT Code Status Date Vaccine Lot # 10900 Given 05/11/2019 Flu < 65 years 5mm97 91204 Given 05/11/2018 Influenza Virus Vaccine, Quadrivalent, Split Virus, Im Use 0.5ML 22292 Given 05/11/2018 Flu < 65 years 82839 Given 05/11/2018 Influenza Virus Vaccine, Quadrivalent, Split, Preservative Free 39477 Given 05/11/2018 Flumist 00931 Given 05/11/2018 Flu High Dose 04936 Given 05/11/2018 Influenza Virus Vaccine, Split, Preserv Free, Intradermal Use 60458 Given 04/22/2017 Influenza Virus Vaccine, Quadrivalent, Split Virus, Im Use 0.5ML 40121 Given 04/22/2017 Flu < 65 years 60125 Given 04/22/2017 Influenza Virus Vaccine, Quadrivalent, Split, Preservative Free 88275 Given 04/22/2017 Flumist 63041 Given 04/22/2017 Flu High Dose 21471 Given 04/22/2017 Influenza Virus Vaccine, Split, Preserv Free, Intradermal Use 98244 Given 06/16/2016 Influenza Virus Vaccine, Split, Preserv Free, Intradermal Use 01880 Given 06/16/2016 Flu High Dose 97615 Given 06/16/2016 Flumist 78960 Given 06/16/2016 Influenza Virus Vaccine, Quadrivalent, Split, Preservative Free 51267 Given 06/16/2016 Flu < 65 years 44745 Given 06/16/2016 Influenza Virus Vaccine, Quadrivalent, Split Virus, Im Use 0.5ML 83592 Given 06/07/2014 Influenza Virus Vaccine, Quadrivalent, Split, Im Use 0.25ML 01469 Given 06/07/2014 Influenza Virus Vaccine, Quadrivalent, Split, Im Use 0.25ML 35639 Given 06/07/2014 Influenza Virus Vaccine, Quadrivalent, Split, Im Use 0.25ML 07368 Given 06/07/2014 Flu < 65 years 64940 Given 06/07/2014 Influenza Virus Vaccine, Quadrivalent, Split, Preservative Free 27228 Given 06/07/2014 Flumist 65325 Given 06/07/2014 Flu High Dose 23486 Given 05/18/2013 Flu High Dose 21826 Given 05/18/2013 Flumist 12913 Given 05/18/2013 Influenza Virus Vaccine, Quadrivalent, Split, Preservative Free 38676 Given 05/18/2013 Flu < 65 years 90073 Given 05/18/2013 Influenza Virus Vaccine, Quadrivalent, Split, Im Use 0.25ML 05954 Given 05/18/2013 Influenza Virus Vaccine, Quadrivalent, Split, Im Use 0.25ML 83779 Given 05/18/2013 Influenza Virus Vaccine, Quadrivalent, Split, Im Use 0.25ML Q2038 Given 05/18/2013 Influenza Vaccine (Fluzone) Administered Age 3 And Older 22886 Given 04/07/2012 Flu High Dose 13832 Given 04/07/2012 Flumist 50108 Given 04/07/2012 Influenza Virus Vaccine, Quadrivalent, Split, Preservative Free 52825 Given 04/07/2012 Flu < 65 years 34291 Given 04/07/2012 Influenza Virus Vaccine, Quadrivalent, Split, Im Use 0.25ML 30868 Given 04/07/2012 Influenza Virus Vaccine, Quadrivalent, Split, Im Use 0.25ML 70411 Given 04/07/2012 Influenza Virus Vaccine, Quadrivalent, Split, Im Use 0.25ML 91242 Given 04/07/2012 Tdap - Boostrix/Adacel 62659 Given 04/07/2012 Pneumovax - for >=2years - PPSV23 Q2038 Given 04/07/2012 Influenza Vaccine (Fluzone) Administered Age 3 And Older Q2038 Given 06/16/2011 Influenza Vaccine (Fluzone) Administered Age 3 And Older 93740 Given 06/16/2011 Influenza Virus Vaccine, Quadrivalent, Split, Im Use 0.25ML 21488 Given 06/16/2011 Influenza Virus Vaccine, Quadrivalent, Split, Im Use 0.25ML 98412 Given 06/16/2011 Influenza Virus Vaccine, Quadrivalent, Split, Im Use 0.25ML 84187 Given 06/16/2011 Flu < 65 years 11403 Given 06/16/2011 Influenza Virus Vaccine, Quadrivalent, Split, Preservative Free 08738 Given 06/16/2011 Flumist 05839 Given 06/16/2011 Flu High Dose Vital Signs [...] Result H/L Range Note Laboratory test 06/29/2019 [facility] Troponin-I 0.02 ng/mL < 0.[address] (TnI) [place] [address] [phone] CBC Auto Diff 06/28/2019 [facility] White 7.3 10^3/uL Normal 3.5-10.[address] [place] [address] Count [phone] Red Blood Count 4.63 10^6/uL Normal 4.18-5.48 [...] Blood Cells % 0.0 Comp Metabolic 06/28/2019 [facility] Sodium 138 mmol/L Normal 135-[address] [place] [address] [phone] Potassium 3.8 mmol/L Normal 3.5-5.0 Chloride 107 [...] Egfr 77.5 >60 2 Laboratory test 06/28/2019 [facility] Troponin-I (TnI) 0.01 ng/ mL <0.04 [address] [place] [address] [phone] Lactic Acid 1.3 mmol/L Normal 0.5-2.0 4 Urine Culture And 05/15/2019 [facility] Urine SEE RESULT 5 , [address] Culture BELOW [place], [place] [address] [phone] Poc Urinalysis 05/15/2019 [facility] Poc Negative Negative [address] Glucose, [place] [address] Urine [phone] Poc Bilirubin, Urine Negative Negative Poc Ketone, Urine Negative Negative Poc Specific [place], Urine 1.025 Normal 1.010-1.030 Poc Blood, Urine [...] N2N/CCD Import MPV 7.9 fL 7.4-10.4 fL Henry% 02/24/2019 N2N/CCD Import Henry% 10.7 % High 0 - 10 % Henry# 02/24/2019 N2N/CCD Import [place]# 0.8 0-0.8 10 10_3/ul 3/ul MCV 02/24/2019 [...] N2N/CCD Import MPV 7.8 fL 7.4-10.4 fL Henry% 01/25/2019 N2N/CCD Import Henry% 12.9 % High 0 - 10 % Henry# 01/25/2019 N2N/CCD Import Henry# 0.7 0-0.8 10 10_3/ul 3/ul MCV 01/25/2019 [...] immediately to secondary confirmatory testing. Using the [employer] 800 Access Immunoassay systems, the 99th percentile [...] immediately to secondary confirmatory testing. Using the [employer] DxI 800 Access Immunoassay systems, the 99th percentile upper reference limit was demonstrated to be < 0.03 ng/mL. 4 [facility] Severe Sepsis and Septic Shock Management Bundle Measure requires all lactic acids initially measuring >2.0 mmol/L be repeated. 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 Aerococcus are usually susceptible to penicillin, amoxicillin, piperacillin, cefipime, rifampin and vancomycin. Moderate to good activity occurs with the quinolones, tetracyclines and erythromycin. ([employer]'s Color [place] and Textbook of Diagnostic Microbiology 6th Ed. 2006, p. 705-6.) * ML - Main Lab . END OF REPORT DEPARTMENT OF PATHOLOGY, [address] [place] [address] Rodolfo Rosales M.D. Director [facility] # [id number] 7 [employer] F[employer]: [id number] Procedures Date Code Description Status 01/31/2019 11932 Brief Emotional/Behav Assessment W/ Scoring Doc Per [...]
--- OUTSIDE RECORDS SUMMARY | 2019-07-19 15:54 | XMS REPORT | Continuity of Care Document ---
:1965 External Reference #:[id number] Author Name ELIZABETH Barajas Address [address] [place] [address] Problems Active Problems Provider Date Chronic kidney [...] Strength teaspoonsful (20ml) by mouth twice a [phone]/5ML day Suspension Probiotic 1 daily Oral 30caps [...] (Ergocalciferol) Capsule By Mouth Once A Month [id number] Capsules History Medications Bactrim DS 1 twice daily Oral 6tabs Unknown 03/17/2019 - 03/20/2019 800-160mg Tablets Omeprazole 1 daily Oral 30caps Unknown 03/17/2019 - 04/13/[address] Francois CPT Code Status Date Vaccine Lot # [id number] Given 05/11/2019 Flu < 65 years [id number] 14418 Given 05/11/2018 Influenza Virus Vaccine, Quadrivalent, Split Virus, Im Use 0.5ML 59032 Given 05/11/2018 Flu < 65 years 00535 Given 05/11/2018 Influenza Virus Vaccine, Quadrivalent, Split, Preservative Free 95192 Given 05/11/2018 Flumist 47789 Given 05/11/2018 Flu High Dose 85421 Given 05/11/2018 Influenza Virus Vaccine, Split, Preserv Free, Intradermal Use 40670 Given 04/22/2017 Influenza Virus Vaccine, Quadrivalent, Split Virus, Im Use 0.5ML 16357 Given 04/22/2017 Flu < 65 years 39336 Given 04/22/2017 Influenza Virus Vaccine, Quadrivalent, Split, Preservative Free 07129 Given 04/22/2017 Flumist 29022 Given 04/22/2017 Flu High Dose 18384 Given 04/22/2017 Influenza Virus Vaccine, Split, Preserv Free, Intradermal Use 76360 Given 06/16/2016 Influenza Virus Vaccine, Split, Preserv Free, Intradermal Use 94826 Given 06/16/2016 Flu High Dose 16292 Given 06/16/2016 Flumist 16576 Given 06/16/2016 Influenza Virus Vaccine, Quadrivalent, Split, Preservative Free 84329 Given 06/16/2016 Flu < 65 years 59429 Given 06/16/2016 Influenza Virus Vaccine, Quadrivalent, Split Virus, Im Use 0.5ML 06279 Given 06/07/2014 Influenza Virus Vaccine, Quadrivalent, Split, Im Use 0.25ML 13133 Given 06/07/2014 Influenza Virus Vaccine, Quadrivalent, Split, Im Use 0.25ML 69577 Given 06/07/2014 Influenza Virus Vaccine, Quadrivalent, Split, Im Use 0.25ML 96364 Given 06/07/2014 Flu < 65 years 98847 Given 06/07/2014 Influenza Virus Vaccine, Quadrivalent, Split, Preservative Free 27251 Given 06/07/2014 Flumist 82298 Given 06/07/2014 Flu High Dose 05998 Given 05/18/2013 Flu High Dose 15989 Given 05/18/2013 Flumist 12016 Given 05/18/2013 Influenza Virus Vaccine, Quadrivalent, Split, Preservative Free 36249 Given 05/18/2013 Flu < 65 years 51502 Given 05/18/2013 Influenza Virus Vaccine, Quadrivalent, Split, Im Use 0.25ML 72933 Given 05/18/2013 Influenza Virus Vaccine, Quadrivalent, Split, Im Use 0.25ML 64696 Given 05/18/2013 Influenza Virus Vaccine, Quadrivalent, Split, Im Use 0.25ML Q2038 Given 05/18/2013 Influenza Vaccine (Fluzone) Administered Age 3 And Older 13612 Given 04/07/2012 Flu High Dose 44935 Given 04/07/2012 Flumist 73792 Given 04/07/2012 Influenza Virus Vaccine, Quadrivalent, Split, Preservative Free 87547 Given 04/07/2012 Flu < 65 years 74118 Given 04/07/2012 Influenza Virus Vaccine, Quadrivalent, Split, Im Use 0.25ML 08647 Given 04/07/2012 Influenza Virus Vaccine, Quadrivalent, Split, Im Use 0.25ML 17086 Given 04/07/2012 Influenza Virus Vaccine, Quadrivalent, Split, Im Use 0.25ML 70333 Given 04/07/2012 Tdap - Boostrix/Adacel 35431 Given 04/07/2012 Pneumovax - for >=2years - PPSV23 Q2038 Given 04/07/2012 Influenza Vaccine (Fluzone) Administered Age 3 And Older Q2038 Given 06/16/2011 Influenza Vaccine (Fluzone) Administered Age 3 And Older 09814 Given 06/16/2011 Influenza Virus Vaccine, Quadrivalent, Split, Im Use 0.25ML 85371 Given 06/16/2011 Influenza Virus Vaccine, Quadrivalent, Split, Im Use 0.25ML 99538 Given 06/16/2011 Influenza Virus Vaccine, Quadrivalent, Split, Im Use 0.25ML 87868 Given 06/16/2011 Flu < 65 years 84310 Given 06/16/2011 Influenza Virus Vaccine, Quadrivalent, Split, Preservative Free 49277 Given 06/16/2011 Flumist 56662 Given 06/16/2011 Flu High Dose Vital Signs [...] Result H/L Range Note Laboratory test 06/29/2019 [facility] Troponin-I 0.02 ng/mL < 0.[address] (TnI) [place] [address] [phone] CBC Auto Diff 06/28/2019 [facility] White 7.3 10^3/uL Normal 3.5-10.[address] [place] [address] Count [phone] Red Blood Count 4.63 10^6/uL Normal 4.18-5.48 [...] Blood Cells % 0.0 Comp Metabolic 06/28/2019 [facility] Sodium 138 mmol/L Normal 135-[address] [place] [address] [phone] Potassium 3.8 mmol/L Normal 3.5-5.0 Chloride 107 [...] Egfr 77.5 >60 2 Laboratory test 06/28/2019 [facility] Troponin-I (TnI) 0.01 ng/ mL <0.04 [address] [place] [address] [phone] Lactic Acid 1.3 mmol/L Normal 0.5-2.0 4 Urine Culture And 05/15/2019 [facility] Urine SEE RESULT 5 , [address] Culture BELOW [place], [place] [id number] [phone] Poc Urinalysis 05/15/2019 [facility] Poc Negative Negative [address] Glucose, [place] [address] Urine [phone] Poc Bilirubin, Urine Negative Negative Poc Ketone, Urine Negative Negative Poc Specific [place], Urine 1.025 Normal 1.010-1.030 Poc Blood, Urine [...] N2N/CCD Import MPV 7.9 fL 7.4-10.4 fL [place]% 02/24/2019 N2N/CCD Import [place]% 10.7 % High 0 - 10 % [place]# 02/24/2019 N2N/CCD Import [place]# 0.8 0-0.8 10 10_3/ul 3/ul MCV 02/24/2019 [...] N2N/CCD Import MPV 7.8 fL 7.4-10.4 fL [place]% 01/25/2019 N2N/CCD Import [place]% 12.9 % High 0 - 10 % [place]# 01/25/2019 N2N/CCD Import [place]# 0.7 0-0.8 10 10_3/ul 3/ul MCV 01/25/2019 [...] immediately to secondary confirmatory testing. Using the [employer] DxI 800 Access Immunoassay systems, the 99th [...] immediately to secondary confirmatory testing. Using the [employer] DxI 800 Access Immunoassay systems, the 99th percentile upper reference limit was demonstrated to be < 0.03 ng/mL. 4 [facility] Severe Sepsis and Septic Shock Management Bundle Measure requires all lactic acids initially measuring >2.0 mmol/L be repeated. 5 [id number] 6 SEE RESULT BELOW Name: KRZYSZTOF BANEGAS : [address]: Lyle Lizama MD Acct: [id number] Unit: [id number] AGE: 53 Location: [facility] Re05/15/19 SEX: M Status: DEP ER SPEC: [id number] SHAKIR: 05/15/19-1336 [facility] [address]: Vamsi Sharma SANDBLASTING SUPERVISOR REQ: [id number] RECD: 05/16/19-1226 STATUS: ELVIRA [facility] DR: Lyle Martinez SANDBLASTING SUPERVISOR _ SOURCE: URINE SPDESC: ORDERED: Urine Culture COMMENTS: [id number] QUERIES: Urine Source: Random Procedure Result Reported Site Urine Culture Final 05/18/19- 1134 ML Organism 1 AEROCOCCUS VIRIDANS [place] Count >100,000 (Many) CFU/ML Aerococcus isolates are too fastidious for routine susceptibility studies. Aerococcus are usually susceptible to penicillin, amoxicillin, piperacillin, cefipime, rifampin and vancomycin. Moderate to good activity occurs with the quinolones, tetracyclines and erythromycin. ([employer] My[employer]le and Textbook of Diagnostic Microbiology 6th Ed. 2006, p. 705-6.) * ML - Main Lab . END OF REPORT DEPARTMENT OF PATHOLOGY, [address] [place] [address] Rodolfo Rosales M.D. Director [facility] # [id number] 7 Reconnaissance Crewmember: [id number] Procedures Date Code Description Status 01/31/2019 79763 Brief Emotional/Behav Assessment W/ Scoring Doc Per [...]
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
== END 2019-07-18 15:35 | disposition home or self-care (01) | DRG 882 ==
LOC: ED 02:53 → BSU 07:54
PROVIDERS: ADMIT Psychiatry & Neurology Psychiatry; ATTEND Psychiatry & Neurology Psychiatry
DX: F43.10 Post-traumatic stress disorder, unspecified (principal); R45.851 Suicidal ideations; F32.9 Major depressive disorder, single episode, unspecified; Z62.810 Personal history of physical and sexual abuse in childhood; F60.9 Personality disorder, unspecified; G40.909 Epilepsy, unspecified, not intractable, without status epilepticus; J45.909 Unspecified asthma, uncomplicated; E03.9 Hypothyroidism, unspecified; K21.9 Gastro-esophageal reflux disease without esophagitis; Z79.899 Other long term (current) drug therapy; Z81.8 Family history of other mental and behavioral disorders
CPT/HCPCS: 36415; 80053; 80307; 80320; 80329; 81003; 81015; 84443; 85025; 87086; 99222; 99238; 99284; A9270-GY; G0480

== ENCOUNTER 2019-08-01 13:20 | Inpatient (IN) | payer MEDICARE, MEDICAID ==
--- NOTE | 2019-08-01 13:28 | ED ---
Psychiatric Complaint - HPI Summary HPI Summary: The patient is a 53 y/o M arriving by ambulance to [facility] with a chief complaint of suicidality with a plan worsening today. He reports that he had nightmares last night, causing him to have bad thoughts of wanting to harm himself. He states a plan of cutting his wrists, but he does not have any current self- inflicted wounds at this time. He states that he has been medication-compliant. He is not in any pain at this time and does not have any further complaints. PMHx: HLD, renal disease, sarcoidosis, developmental delay, headaches, seizures , anxiety, depression, panic disorder, PTSD, inpatient treatment, suicide attempt. Heavy every day smoker, no EtOH, history of substance use last in 2011. Medications reviewed. Allergies noted. - History Of Current Complaint Chief Complaint: EDSuicidal Hx Obtained From: Patient Onset/Duration: Gradual Onset, Lasting Hours, Still Present Timing: Constant Severity Initially: Mild Severity Currently: Moderate Character: Depressed Aggravating Factor(s): Other - bad dreams Alleviating Factor(s): Nothing Associated Signs And Symptoms: Positive: Sleep Disturbance Related History: Positive For: Prior Psychiatric Issues - anxiety, depression, panic disorder, PTSD, inpatient tx, suicide attempt Has Suicidal: Reports: Thoughts, With A Plan - cutting wrists - Allergies/Home Medications Allergies/Adverse Reactions: Allergies Allergy/AdvReac Type Severity Reaction Status Date / Time lactose Allergy Stomach Verified 07/17/19 02:56 Cramps Home Medications: Home Medications Ergocalciferol CAP* [Drisdol CAP*] 50,000 unit PO MO 08/01/19 [History Confirmed 08/01/19] Multivitamins/Minerals TAB* [Theragran/minerals TAB*] 1 tab PO DAILY 08/01/19 [ History Confirmed 08/01/19] PMH/Surg Hx/FS Hx/Imm Hx Endocrine/Hematology History: Reports: Hx Thyroid Disease Denies: Hx Anticoagulant Therapy, Hx Diabetes, Hx Systemic Lupus Erythematosus, Hx Anemia Cardiovascular History: Reports: Hx Hypercholesterolemia, Other Cardiovascular Problems/Disorders - HYPERLIPIDEMIA Denies: Hx Congestive Heart Failure, Hx Hypertension, Hx Pacemaker/ICD Respiratory History: Reports: Other Respiratory Problems/Disorders - Sarcoidosis Denies: Hx Asthma, Hx Chronic Bronchitis, Hx Chronic Obstructive Pulmonary Disease (COPD) GI History: Reports: Hx Gastroesophageal Reflux Disease, Hx Irritable Bowel, Hx Obstructive Bowel - Small bowel, Other GI Disorders - CYST REMOVED FROM BLADDER , LATE Denies: Hx Ulcer History: Reports: Hx Kidney Stones, Hx Renal Disease - LEFT KIDNEY DECREASE IN FUNCTION, Other Problems/Disorders - HX OF CYST IN THE BLADDER Denies: Hx Benign Prostatic Hyperplasia, Hx Dialysis Musculoskeletal History: Reports: Other Musculoskeletal History - Sarcoidosis Denies: Hx Rheumatoid Arthritis Sensory History: Reports: Hx Contacts or Glasses Denies: Hx Legally Blind, Hx Deafness, Hx Hearing Aid Opthamlomology History: Reports: Hx Contacts or Glasses Denies: Hx Legally Blind Neurological History: Reports: Hx Developmental Delay, Hx Headaches, Hx Seizures , Other Neuro Impairments/Disorders - "light concussion" Psychiatric History: Reports: Hx Anxiety, Hx Depression, Hx Panic Disorder, Hx Post Traumatic Stress Disorder, Hx Inpatient Treatment, Hx Community Mental Health Tx, Hx Suicide Attempt, Other Psychiatric Issues/Disorders Denies: Hx Attention Deficit Hyperactivity Disorder, Hx Eating Disorder, Hx Schizophrenia, Hx Bipolar Disorder, Hx of Violent Episodes Against Others, Hx Substance Abuse - Cancer History Hx Chemotherapy: No - Surgical History Surgical History: Yes Surgery Procedure, Year, and Place: 2009 APPENDECTOMY, [facility] CYST REMOVED FROM BLADDER, [facility] CHOLECYSTECTOMY-12/2012 Hx Anesthesia Reactions: No - Immunization History Date of Tetanus Vaccine: Unknown Date of Influenza Vaccine: Fall 2013 Infectious Disease History: No Infectious Disease History: Denies: Hx Clostridium Difficile, Hx Hepatitis, Hx Human Immunodeficiency Virus (HIV), Hx of Known/Suspected MRSA, Hx Shingles, Hx Tuberculosis, Hx Known/ Suspected VRE, Hx Known/Suspected VRSA, History Other Infectious Disease, Traveled Outside the [place] in Last 30 Days - Family History Known Family History: Positive: Cardiac Disease, Hypertension - Father, Seizure Disorder - sister, Other - cancer - Social History Alcohol Use: None Alcohol Amount: none since 2011 Hx Substance Use: Yes Substance Use Type: Reports: None Substance Use Comment - Amount & Last Used: pt states he has not used any drugs since 2011. Hx Tobacco Use: Yes Smoking Status (MU): Heavy Every Day Tobacco Smoker Type: Cigarettes Length of Time of Smoking/Using Tobacco: 20YRS Have You Smoked in the Last Year: No Review of Systems Negative: Other - self-inflicted lacerations Positive: Depressed, Other - SI All Other Systems Reviewed And Are Negative: Yes Physical Exam - Summary Physical Exam Summary: Appearance: The patient is well-nourished in no acute distress and in no acute pain. Skin: The skin is warm and dry, and skin color reflects adequate perfusion. HEENT: The head is normocephalic and atraumatic. The pupils are equal and reactive. The conjunctivae are clear and without drainage. Nares are patent and without drainage. Mouth reveals moist mucous membranes, and the throat is without erythema and exudate. The external ears are intact. The ear canals are patent and without drainage. The tympanic membranes are intact. Neck: The neck is supple with full range of motion and non-tender. There are no carotid bruits. There is no neck vein distension. Respiratory: Chest is non-tender. Lungs are clear to auscultation and breath sounds are symmetrical and equal. Cardiovascular: Heart is regular rate and rhythm. There is no murmur or rub auscultated. There is no peripheral edema and pulses are symmetrical and equal. Abdomen: The abdomen is soft and non-tender. There are normal bowel sounds heard in all four quadrants and there is no organomegaly palpated. Musculoskeletal: There is no back tenderness noted. Extremities are non-tender with full range of motion. There is good capillary refill. There is no peripheral edema or calf tenderness elicited. Neurological: Patient is alert and oriented to person, place and time. The patient has symmetrical motor strength in all four extremities. Cranial nerves are grossly intact. Deep tendon reflexes are symmetrical and equal in all four extremities. Psychiatric: The patient has an appropriate affect and does not exhibit any anxiety or depression. Triage Information Reviewed: Yes Vital Signs On Initial Exam: Initial Vitals Temp Pulse Resp BP Pulse Ox 98.3 F 86 16 123/75 98 08/01/19 13:22 08/01/19 13:22 08/01/19 13:22 08/01/19 13:22 08/01/19 13:22 Vital Signs Reviewed: Yes Procedures - Sedation Patient Received Moderate/Deep Sedation with Procedure: No Diagnostics - Vital Signs Vital Signs Temp Pulse Resp BP Pulse Ox 08/01/19 13:22 98.3 F 86 16 123/75 98 - Laboratory Result Diagrams: 08/01/19 14:00 08/01/19 14:00 Lab Statement: Any lab studies that have been ordered have been reviewed, and results considered in the medical decision making process. Re-Evaluation - Re-Evaluation First Eval Re-Evaluation Time: 14:30 Comment: Patient is medically clear for MHE. Course/Dx - Course Course Of Treatment: Mr. Banegas was medically cleared in the emergency department and went to [facility] for mental health eval. They offered him a voluntary admission which he accepted. - Differential Dx/Clinical Impression Provider Diagnosis: PTSD (post-traumatic stress disorder) - Physician Notifications Discussed Care Of Patient With: Lawanda Haskins - mental health manpower development advisor Time Discussed With Above Provider: 16:20 Instructed by Provider To: Other - Lawanda reports that Dr. Truong, psychiatry, has evaluated the patient and has determined that admission is appropriate. Patient is voluntarily agreeing admission. Diagnosis of PTSD. Discharge ED - Sign-Out/Discharge Documenting (check all that apply): Patient Departure - Patient voluntarily admitted to [facility]SU by Dr. Truong. - Discharge Plan Condition: Stable Disposition: PSYCHIATRIC FACILITY-[facility] - Billing Disposition and Condition Condition: STABLE Disposition: Psychiatric Facility [facility] - Attestation Statements Document Initiated by Scribe: Yes Documenting Scribe: Nettie Canales Provider For Whom Caprice is Documenting (Include Credential): Dr. Gerald Collins MD Scribe Attestation: Dora, kerline Currieibed for Dr. Gerald Collins MD on 08/01/19 at 1917. Scribe Documentation Reviewed: Yes Provider Attestation: The documentation as recorded by the Nettie farah accurately reflects the service I personally performed and the decisions made by me, Dr. Gerald Collins MD Status of Scribe Document: Viewed
[2019-08-01 14:06] LABS: ABS Basophils 0.1 10^3/ul (0-0.2); ABS Eosinophils 0.3 10^3/ul (0-0.6); ABS Lymphocytes 1.4 10^3/ul (1.0-4.8); ABS Monocytes 0.6 10^3/ul (0-0.8); ABS Neutrophils 6.4 10^3/ul (1.5-7.7); Eosinophil % 3.3 %; Hematocrit 42 % (42-52); Hemoglobin 14.3 g/dL (14.0-18.0); Lymphocyte % 16.1 %; Mean Corpuscular HGB Conc 34 g/dL (31-36); Mean Corpuscular Hemoglobin 32 pg (27-31); Mean Corpuscular Volume 94 fL (80-94); Mean Platelet Volume 7.2 fL (7.4-10.4); Nucleated Red Blood Cells % 0.1; Platelet Count 265 10^3/uL (150-450); Red Blood Count 4.42 10^6 /uL (4.18-5.48); Red Cell Distribution Width 13 % (10-15); White Blood Count 8.8 10^3/uL (3.5-10.8)
[2019-08-01 14:45] LABS: Urine Benzodiazepine Screen None Detected (None Detect); Urine Opiates Screen None Detected (None Detect)
[2019-08-01 14:50] LABS: Urine Appearance Cloudy; Urine Bilirubin Negative (Negative); Urine Blood Negative (Negative); Urine Color Yellow; Urine Glucose Negative (Negative); Urine Ketones Negative (Negative); Urine Nitrite Negative (Negative); Urine Protein Negative (Negative); Urine Specific Gravity 1.018 (1.010-1.030); Urine Urobilinogen Negative (Negative)
[2019-08-01 14:53] LABS: ALT 23 U/L (7-52); Albumin 3.8 g/dL (3.2-5.2); Albumin/Globulin Ratio 1.5 (1-3); Alkaline Phosphatase 79 U/L (34-104); BUN/Creatinine Ratio 19.8 (8-20); Blood Urea Nitrogen 25 mg/dL (6-24); CO2 Carbon Dioxide 24 mmol/L (22-32); Calcium 9.1 mg/dL (8.6-10.3); Chloride 107 mmol/L (101-111); EGFR African American 71.9 (>60); EGFR Non-African American 59.4 (>60); Globulin 2.5 g/dL (2-4); Glucose 125 mg/dL (70-100); Sodium 138 mmol/L (135-145); Total Protein 6.3 g/dL (6.4-8.9)
[2019-08-01 14:54] LABS: TSH (Thyroid Stimulating Horm) 1.65 mcIU/mL (0.34-5.60)
[2019-08-01 14:55] LABS: Urine Bacteria Absent (Absent); Urine Red Blood Cell 2+(6-10/hpf) (Absent); Urine Squamous Epithelial Cell Present (Absent); Urine White Blood Cell 3+(>20/hpf) (Absent)
[2019-08-01 15:08] LABS: Acetaminophen < 15 mcg/mL; Alcohol < 10 mg/dL (<10); Salicylate < 2.50 mg/dL (<30)
[2019-08-01 16:10] LABS: AST 18 U/L (13-39); Anion Gap 7 mmol/L (2-11); Potassium 4.1 mmol/L (3.5-5.0)
[2019-08-01] MEDS ORDERED: Acetaminophen TAB* 325 MG PO PRN (16:17)
[2019-08-01] MEDS ORDERED: Cetirizine* 10 MG TAB PO PRN (16:18)
[2019-08-01] MEDS ORDERED: QUEtiapine TAB* 25 MG PO PRN (16:18)
[2019-08-01] MEDS: Al Hydrox/Mg Hydrox/Simet LIQ* 30 ML UDC PO PRN ×2 (18:14→22:25)
[2019-08-01] MEDS: Ziprasidone CAP* 80 MG PO SCH (18:14)
[2019-08-01] MEDS: Famotidine TAB* 20 MG PO SCH (19:52)
[2019-08-01] MEDS: Atorvastatin* 20 MG TAB PO SCH (19:53)
[2019-08-01] MEDS: cloNIDine TAB* 0.1 MG PO SCH (19:53)
[2019-08-01] MEDS: Zolpidem TAB* 10 MG PO PRN (19:55)
[2019-08-02 08:14] LABS: HDL Cholesterol 20.4 mg/dL
[2019-08-02] MEDS ORDERED: DULoxetine DR CAP* 60 MG CAP.DR PO SCH (09:00)
[2019-08-02] MEDS: Levothyroxine TAB* 50 MCG TAB PO SCH (09:45)
[2019-08-02] MEDS: Topiramate TAB(*) 100 MG PO SCH (09:45)
[2019-08-02] MEDS: Doxazosin TAB* 2 MG PO SCH (09:46)
[2019-08-02] MEDS: Famotidine TAB* 20 MG PO SCH ×2 (09:46→20:46)
[2019-08-02] MEDS: Ziprasidone CAP* 80 MG PO SCH ×2 (09:46→16:53)
[2019-08-02] MEDS: Pantoprazole TAB * 40 MG TAB PO SCH (09:47)
[2019-08-02] MEDS: DULoxetine DR CAP* 30 MG CAP.DR PO SCH (09:47)
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
[2019-08-02] MEDS: cloNIDine TAB* 0.1 MG PO SCH (20:46)
[2019-08-02] MEDS: Atorvastatin* 20 MG TAB PO SCH (20:46)
[2019-08-02] MEDS: Zolpidem TAB* 10 MG PO PRN (20:46)
[2019-08-03] MEDS: Levothyroxine TAB* 50 MCG TAB PO SCH (09:02)
[2019-08-03] MEDS: Ziprasidone CAP* 80 MG PO SCH ×2 (09:03→17:26)
[2019-08-03] MEDS: DULoxetine DR CAP* 30 MG CAP.DR PO SCH (09:03)
[2019-08-03] MEDS: Pantoprazole TAB * 40 MG TAB PO SCH (09:03)
[2019-08-03] MEDS: Doxazosin TAB* 2 MG PO SCH (09:04)
[2019-08-03] MEDS: Famotidine TAB* 20 MG PO SCH ×2 (09:04→20:16)
[2019-08-03] MEDS: Topiramate TAB(*) 100 MG PO SCH (09:05)
[2019-08-03] MEDS: Al Hydrox/Mg Hydrox/Simet LIQ* 30 ML UDC PO PRN ×2 (10:22→18:46)
--- NOTE | 2019-08-03 16:14 | PN ---
Subjective - Subjective Date of Service: 08/03/19 Service Type: 78944 Hosp care 15 min low complexity Subjective: Abdifatah is found lying in bed resting. He is happy to be awakened to discuss how he 's feeling. He says he is feeling well and he has plans for Tee. He has family coming on the weekend and then he will spend Tee Marely and Varney with his two sisters. He offers a wide smile and is happy to announce that he is ready to go home. Objective - General Observations Appearance: Disheveled Appears Stated Age: Yes Stature: Overweight Eye Contact: Average Behavior/Activity: Slowed - Interaction Observations Attitude Towards Examiner: Cooperative Stated Mood: Euthymic Affect: Restricted Speech Pattern/Tone: Clear, Appropriate, Normal Volume Thought Process: Coherent, Goal Directed Perception: WNL Thought Content: WNL Hallucination Type: None Delusion Type: None - Cognitive Function Orientation: A&O x 4 Level of Consciousness: Awake, Alert, Appropriate Cognition: Impaired Cognition, Impaired Ability to Abstract, Impaired Fund of Knowledge Estimated Intelligence: Borderline Range Insight: Mostly Blames Others for Problems Judgment Within Normal Limits: No Ability to Make Reasonable Decisions: Mildly Impaired - Medication Compliance Cooperative with Inpatient Medication Regimen: Yes - Group Participation Participates in Group Activities: Partial Assessment - Assessment Merits Inpatient Hospitalization: For Immediate Safety Clinical Impression: Abdifatah is a 53-year-old white male who is diagnosed with PTSD and mood disorder who comes to the hospital with a recent history of nightmares and flashbacks causing Abdifatah to have suicidal ideation. Plan - Plan Treatment Plan: Name: SONIA MONDRAGON Birthdate: 1965 [id number] 08/03/19 Abdifatah's mental health crisis has reduced and he is prepared to leave the hospital tomorrow and return to his family. Medications: Current Medications Acetaminophen (Tylenol Tab*) 650 mg PO Q4H PRN PRN Reason: for pain; or Temp >101 F Al Hydrox/Mg Hydrox/Simethicone (Maalox Plus*) 30 ml PO Q4H PRN PRN Reason: INDIGESTION Last Admin: 08/03/19 10:22 Dose: 30 ml Atorvastatin Calcium (Lipitor*) 20 mg PO 2100 TERRI Last Admin: 08/02/19 20:46 Dose: 20 mg Cetirizine HCl (Zyrtec*) 10 mg PO DAILY PRN PRN Reason: Allergy Symptoms Clonidine HCl (Catapres Tab*) 0.2 mg PO BEDTIME [facility] Last Admin: 08/02/19 20:46 Dose: 0.2 mg Doxazosin Mesylate (Cardura Tab*) 4 mg PO DAILY [facility] Last Admin: 08/03/19 09:04 Dose: 4 mg Duloxetine HCl (Cymbalta Cap*) 90 mg PO DAILY [facility] Last Admin: 08/03/19 09:03 Dose: 90 mg Famotidine (Pepcid Tab*) 20 mg PO BID [facility] Last Admin: 08/03/19 09:04 Dose: 20 mg Levothyroxine Sodium (Synthroid Tab*) 50 mcg PO 0600 [facility] Last Admin: 08/03/19 09:02 Dose: 50 mcg Pantoprazole Sodium (Protonix Tab*) 40 mg PO QAM [facility] Last Admin: 08/03/19 09:03 Dose: 40 mg Prazosin HCl (Minipress Cap*) 2 mg PO BEDTIME [facility] Last Admin: 08/02/19 20:45 Dose: 2 mg Prochlorperazine (Compazine Tab*) 5 mg PO BID PRN PRN Reason: NAUSEA Quetiapine Fumarate (Seroquel Tab*) 50 mg PO TID PRN PRN Reason: AGITATION/ANXIETY Topiramate (Topamax(*)) 100 mg PO DAILY [facility] Last Admin: 08/03/19 09:05 Dose: 100 mg Ziprasidone (Geodon Cap*) 80 mg PO BID WITH MEALS [facility] Last Admin: 08/03/19 09:03 Dose: 80 mg Zolpidem Tartrate (Ambien Tab*) 10 mg PO BEDTIME PRN PRN Reason: SLEEP Last Admin: 08/02/19 20:46 Dose: 10 mg
[2019-08-03] MEDS: Atorvastatin* 20 MG TAB PO SCH (20:15)
[2019-08-03] MEDS: cloNIDine TAB* 0.1 MG PO SCH (20:16)
[2019-08-03] MEDS: Zolpidem TAB* 10 MG PO PRN (20:20)
[2019-08-04 08:11] VITALS: BP 92/64
[2019-08-04] MEDS ORDERED: Sulfamethox/Trimethoprim DS 800/160* TAB PO SCH (09:00)
[2019-08-04] MEDS: Famotidine TAB* 20 MG PO SCH (09:11)
[2019-08-04] MEDS: DULoxetine DR CAP* 30 MG CAP.DR PO SCH (09:11)
[2019-08-04] MEDS: Ziprasidone CAP* 80 MG PO SCH (09:11)
[2019-08-04] MEDS: Levothyroxine TAB* 50 MCG TAB PO SCH (09:11)
[2019-08-04] MEDS: Doxazosin TAB* 2 MG PO SCH (09:11)
[2019-08-04] MEDS: Pantoprazole TAB * 40 MG TAB PO SCH (09:11)
[2019-08-04] MEDS: Topiramate TAB(*) 100 MG PO SCH (09:11)
[2019-08-04] MEDS: Al Hydrox/Mg Hydrox/Simet LIQ* 30 ML UDC PO PRN (09:39)
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
== END 2019-08-04 13:15 | disposition home or self-care (01) | DRG 882 ==
LOC: ED 13:20 → BSU 16:17
PROVIDERS: ADMIT Psychiatry & Neurology Psychiatry; ATTEND Psychiatry & Neurology Psychiatry
DX: F43.12 Post-traumatic stress disorder, chronic (principal); R45.851 Suicidal ideations; N39.0 Urinary tract infection, site not specified; F17.210 Nicotine dependence, cigarettes, uncomplicated; E78.00 Pure hypercholesterolemia, unspecified; E78.5 Hyperlipidemia, unspecified; D86.9 Sarcoidosis, unspecified; K21.9 Gastro-esophageal reflux disease without esophagitis; K58.9 Irritable bowel syndrome, unspecified; F41.0 Panic disorder [episodic paroxysmal anxiety]; F32.9 Major depressive disorder, single episode, unspecified; G40.909 Epilepsy, unspecified, not intractable, without status epilepticus; E03.9 Hypothyroidism, unspecified; R62.50 Unspecified lack of expected normal physiological development in childhood; J45.909 Unspecified asthma, uncomplicated; F60.9 Personality disorder, unspecified; Z91.410 Personal history of adult physical and sexual abuse; Z91.011 Allergy to milk products; Z91.5 Personal history of self-harm; Z79.899 Other long term (current) drug therapy; Z79.890 Hormone replacement therapy
CPT/HCPCS: 36415; 80053; 80061; 80307; 80320; 80329; 81003; 81015; 83036; 83721; 84443; 85025; 87077; 87086; 87186; 99222; 99231; 99238; 99284; A9270-GY; G0480

== ENCOUNTER 2019-09-10 03:25 | Inpatient (IN) | payer MEDICARE, MEDICAID ==
[2019-09-10] MEDS ORDERED: Phenazopyridine TAB* 100 MG PO ONE (03:43)
[2019-09-10] MEDS ORDERED: Ondansetron ODT TAB* 4 MG SL ONE (03:43)
--- OUTSIDE RECORDS SUMMARY | 2019-09-10 04:04 | XMS REPORT | Continuity of Care Document ---
:1965 External Reference #:[id number] Author Name Lavon Rodriguez MD Address [address] [place] [address] Problems Active Problems Provider Date Chronic kidney disease Onset: 08/03/2018 Lower urinary tract symptoms due to benign Onset: 02/21/2018 prostatic hypertrophy Hypothyroidism Onset: 04/22/2017 Bilateral cataracts Onset: 01/31/2017 Amblyopia Onset: 01/31/2017 Allergic rhinitis Onset: 11/07/2015 Pure hyperglyceridemia Onset: 05/17/2012 Posttraumatic stress disorder Lavon Rodriguez MD Onset: 08/02/2019 Seizure Onset: 05/18/2013 Sarcoidosis Lavon Rodriguez MD Onset: 08/06/2019 Inactive Problems Increased frequency of urination Onset: 03/24/2019 Inactive: 03/24/2019 Abnormal urination Onset: 03/23/2019 Inactive: 03/23/2019 Abdominal pain Onset: 03/18/2019 Inactive: 03/18/2019 Dysuria Onset: 03/18/2019 Inactive: 03/18/2019 Nausea and vomiting Onset: 03/17/2019 Inactive: 03/17/2019 Social History Type Date Description Comments Sex Unknown Tobacco Use Start: Unknown Light tobacco smoker (10 or fewer cigarettes/day) Smoking Status Reviewed: 08/05/19 Light tobacco smoker (10 or fewer cigarettes/day) Allergies, Adverse Reactions, Alerts Description No Known Drug Allergies Medications Active Medications SIG Qnty Indications Ordering Date Provider Duloxetine HCL 1 by mouth every 30caps Lavon Rodriguez MD 08/05/2019 60mg day with 30mg = Caps DR Part total dose 60mg Guaifenesin/Pseudoep 2 tab by mouth 28tabs ELIZABETH Barajas 06/29/2019 hedrine twice a day Hydrochloride 60-600mg Tablets ER 12HR Atorvastatin Calcium Take 1 Tablet By 90tabs ELIZABETH Barajas 05/31/2019 Mouth AT Bedtime 20mg Tablets Omeprazole oral; take one 30caps ELIZABETH Barajas 04/13/2019 40mg capsule by mouth Capsules once daily Prazosin HCL 2 at bedtime Oral 180caps Unknown 02/21/2019 1mg Capsules Topiramate 1 daily Oral 90tabs Unknown 02/21/2019 100mg Tablets Levothyroxine Sodium Oral; Take One 30tabs Unknown 02/09/2019 Tablet By Mouth 50mcg Tablets Once Daily In The Morning Famotidine Oral; Take One 60tabs Unknown 12/27/2018 20mg Tablet By Mouth Two Tablets Times Daily Antacid Maximum oral; take 4 500units Lavon Rodriguez MD 09/27/2018 Strength teaspoonsful (20ml) by mouth twice a 240-335-40pm/5ML day Suspension Cetirizine HCL Oral; Take One 30tabs Unknown 07/19/2018 10mg Tabletby Mouth Once Tablets Daily as Needed Doxazosin Mesylate 1 at bedtime Oral 30tabs [...] Unknown 10/21/2017 Strength prn Oral 500mg Tablets Clonidine HCL 1 at bedtime Oral Unknown 03/16/2017 0.2mg Tablets Zolpidem Tartrate 1 at bedtime Oral Unknown 03/16/2017 5mg Tablets Seroquel one tid prn anxiety Unknown 50mg Tablets History Medications Guaifenesin ER 1 tab by mouth 20tabs ELIZABETH Barajas 06/29/2019 - 1200mg twice a day 06/29/2019 Tablets ER 12HR Bactrim DS 1 twice daily 6tabs Unknown 03/17/2019 - 800-160mg Oral 03/20/2019 Tablets Omeprazole 1 daily Oral 30caps Unknown 03/17/2019 - 40mg Capsules 04/13/2019 Immunizations CPT Code Status Date Vaccine Lot # [id number] Given 05/11/2019 Flu < 65 years [id number] Given 05/11/2018 Flu < 65 years 26825 Given 04/07/2012 Pneumovax - for >=2years - PPSV23 00516 Given 04/07/2012 Tdap - Boostrix/Adacel Vital Signs Date Vital Result Comment 08/05/2019 11:54am BP Systolic 110 mmHg BP Diastolic 64 mmHg Height 64 inches 5'4" Weight 200.00 lb Heart Rate 91 /min Body Temperature 97.4 F O2 % BldC Oximetry 95 % BMI (Body Mass Index) 34.3 kg/m2 06/29/2019 9:52am BP Systolic 112 mmHg BP Diastolic 60 mmHg Height 63.75 inches 5'3.75" Weight 201.00 lb Heart Rate 95 /min Body Temperature 96.6 F O2 % BldC Oximetry 100 % BMI (Body Mass Index) 34.8 kg/m2 Results Test Acquired Date Facility Test Result H/L Range Note CBC Auto 09/09/2019 [facility] White Blood 7.1 10^3/uL Normal 3.5-10.[address] [place] [address] [phone] Red Blood Count 4.66 10^6/uL Normal 4.18-5.48 Hemoglobin 15.0 g/dL Normal 14.0-18.0 Hematocrit 43 % Normal 42-52 Mean Corpuscular Volume 93 fL Normal 80-94 Mean Corpuscular Hemoglobin 32 pg High 27-31 Mean Corpuscular HGB Conc 34 g/dL Normal 31-36 Red Cell Distribution Width 13 % Normal 10-15 Platelet Count 235 10^3/uL Normal 150-450 Mean Platelet Volume 8.2 fL Normal 7.4-10.4 Abs Neutrophils 5.6 10^3/uL Normal 1.5-7.7 Abs Lymphocytes 0.9 10^3/uL Low 1.0-4.8 Abs Monocytes 0.5 10^3/uL Normal 0-0.8 Abs Eosinophils 0.1 10^3/uL Normal 0-0.6 Abs Basophils 0.1 10^3/uL Normal 0-0.2 Abs Nucleated RBC 0.0 10^3/uL Granulocyte % 78.9 % Lymphocyte % 12.1 % Monocyte % 7.4 % Eosinophil % 0.8 % Basophil % 0.8 % Nucleated Red Blood Cells % 0.0 INR/Protime 09/09/2019 [facility] INR 0.96 Normal 0.82-1.[address] [place], [place] [id number] [phone] Laboratory test 09/09/2019 [facility] Lactic 2.5 Critical 0.5- 2.[address] Acid mmol/L high [place], [place] [id number] [phone] Comp Metabolic 09/09/2019 [facility] Sodium 138 Normal 135- 145 Panel [address] [facility] mmol/L [place], [place] [id number] [phone] Potassium 4.3 mmol/L Normal 3.5-5.0 Chloride 105 mmol/L Normal 101-111 Co2 Carbon Dioxide 23 mmol/L Normal 22-32 Anion Gap 10 mmol/L Normal 2-11 Glucose 116 mg/dL High 70-100 Blood Urea Nitrogen 21 mg/dL Normal 6-24 Creatinine 1.32 mg/dL High 0.67-1.17 BUN/Creatinine Ratio 15.9 Normal 8-20 Calcium 9.4 mg/dL Normal 8.6-10.3 Total Protein 6.6 g/dL Normal 6.4-8.9 Albumin 4.3 g/dL Normal 3.2-5.2 Globulin 2.3 g/dL Normal 2-4 Albumin/Globulin Ratio 1.9 Normal 1-3 Total Bilirubin 0.40 mg/dL Normal 0.2-1.0 Alkaline Phosphatase 74 U/L Normal 34-104 Alt 25 U/L Normal 7-52 Ast 20 U/L Normal 13-39 Egfr Non- 56.3 >60 Egfr 68.1 >60 3 Laboratory test 09/09/2019 [facility] Magnesium 1.8 mg/dL Low 1.9-2.7 finding [address] [place] [address] [phone] Lipase 34 U/L Normal 11.0-82.0 C Reactive Protein 5.87 mg/L Normal <8.01 Urinalysis Profile 09/09/2019 [facility] Urine Color Yellow [address] [place] [address] [phone] Urine Appearance Clear Urine Specific [place] 1.023 Normal 1.010-1.030 Urine pH 6.0 Normal 5-9 Urine Urobilinogen Negative Negative Urine Ketones Negative Negative Urine Protein 1+(30 mg/dL) Abnormal Negative Urine Leukocytes Trace Abnormal Negative Urine Blood Negative Negative * * Abnormal Negative 4 Urine Nitrite Negative Negative Urine Bilirubin Negative Negative Urine Glucose Negative Negative Urine White Blood Cell 1+(6-10/hpf) Abnormal Absent Urine Red Blood Cell 2+(6-10/hpf) Abnormal Absent Urine Bacteria 1+ Abnormal Absent Urine Squamous Epithelial Cell Present Abnormal Absent CBC Auto 08/11/2019 [facility] White Blood 6.4 10^3/uL Normal 3.5-10.[address] [place] [address] [phone] Red Blood Count 4.47 10^6/uL Normal 4.18-5.48 Hemoglobin 14.4 g/dL Normal 14.0-18.0 Hematocrit 41 % Low 42-52 Mean Corpuscular Volume 92 fL Normal 80-94 Mean Corpuscular Hemoglobin 32 pg High 27-31 Mean Corpuscular HGB Conc 35 g/dL Normal 31-36 Red Cell Distribution Width 13 % Normal 10-15 Platelet Count 259 10^3/uL Normal 150-450 Mean Platelet Volume 8.0 fL Normal 7.4-10.4 Abs Neutrophils 4.1 10^3/uL Normal 1.5-7.7 Abs Lymphocytes 1.4 10^3/uL Normal 1.0-4.8 Abs Monocytes 0.7 10^3/uL Normal 0-0.8 Abs Eosinophils 0.2 10^3/uL Normal 0-0.6 Abs Basophils 0.0 10^3/uL Normal 0-0.2 Abs Nucleated RBC 0.0 10^3/uL Granulocyte % 63.7 % Lymphocyte % 22.3 % Monocyte % 10.5 % Eosinophil % 3.2 % Basophil % 0.3 % Nucleated Red Blood Cells % 0.0 Urinalysis Profile 08/11/2019 [facility] Urine Color Yellow [address] [place] [address] [phone] Urine Appearance Clear Urine Specific [place] 1.015 Normal 1.010-1.030 Urine pH 6.0 Normal 5-9 Urine Urobilinogen Negative Negative Urine Ketones Negative Negative Urine Protein Negative Negative Urine Leukocytes Negative Negative Urine Blood Negative Negative Urine Nitrite Negative Negative Urine Bilirubin Negative Negative Urine Glucose Negative Negative Comp Metabolic 08/11/2019 [facility] Sodium 138 mmol/L Normal 135-[address] [place], [place] [address] [phone] Potassium 4.1 mmol/L Normal 3.5-5.0 Chloride 107 mmol/L Normal 101-111 Co2 Carbon Dioxide 25 mmol/L Normal 22-32 Anion Gap 6 mmol/L Normal 2-11 Glucose 109 mg/dL High 70-100 Blood Urea Nitrogen 18 mg/dL Normal 6-24 Creatinine 1.56 mg/dL High 0.67-1.17 BUN/Creatinine Ratio 11.5 Normal 8-20 Calcium 9.6 mg/dL Normal 8.6-10.3 Total Protein 6.2 g/dL Low 6.4-8.9 Albumin 4.0 g/dL Normal 3.2-5.2 Globulin 2.2 g/dL Normal 2-4 Albumin/Globulin Ratio 1.8 Normal 1-3 Total Bilirubin 0.30 mg/dL Normal 0.2-1.0 Alkaline Phosphatase 80 U/L Normal 34-104 Alt 23 U/L Normal 7-52 Ast 18 U/L Normal 13-39 Egfr Non- 46.4 >60 Egfr 56.2 >60 5 Laboratory test 08/11/2019 [facility] Acetaminophen < 15 g/mL [address] [place] [address] [phone] Alcohol < 10 mg/dL Normal <10 Salicylate < 2.50 mg/dL <30 TSH (Thyroid Stim Horm) 1.69 mcIU/mL Normal 0.34-5.60 Urine Drug 08/11/2019 [facility] Urine None Detected None Detect SCR ED & [address] [place] [address] Screen [phone] Urine Barbiturates Screen None Detected None Detect Urine Benzodiazepine Screen None Detected None Detect Urine Cannabinoids Screen None Detected None Detect Urine Opiates Screen None Detected None Detect Urine Phencyclidine Screen None Detected None Detect 7 Urine Cocaine Screen None Detected None Detect CFM Urinalysis 08/05/2019 [facility] Urine Specific [place] 1.020 ( )- - Ua PH Test Strip 5.5 Ua WBC trace Ua Protein neg Urine Glucose QL neg Urine Ketones QL Test Strip neg Urine Bilirubin TTL QL T-Strip neg Urine Urobilinogen QN TS 0.2 Urine Nitrite QL TS neg Ua Occult Blood trace-lysed Hemoglobin A1c 08/01/2019 N2N/CCD Import Hemoglobin A1c 5.7 Lipid Panel 08/01/2019 N2N/CCD Import Cholesterol Total Mass/Vol 129 High Density Lipoprotein 20.4 LDL Cholesterol Mass/Vol 58 Triglycerides QN Ser/PLS [facility] 503 Urine Culture And 08/01/2019 [facility] Urine SEE RESULT [address] [place] [address] [phone] Laboratory test 08/01/2019 [facility] TSH (Thyroid 1.65 Normal 0.34- finding [address] Stim Horm) mcIU/mL 5.60 [place] [address] [phone] Acetaminophen < 15 g/mL 9 Alcohol < 10 mg/dL Normal <10 Salicylate < 2.50 mg/dL <30 CBC Auto 08/01/2019 [facility] White Blood 8.8 10^3/uL Normal 3.5-10.[address] [place] [address] [phone] Red Blood Count 4.42 10^6/uL Normal 4.18-5.48 Hemoglobin 14.3 g/dL Normal 14.0-18.0 Hematocrit 42 % Normal 42-52 Mean Corpuscular Volume 94 fL Normal 80-94 Mean Corpuscular Hemoglobin 32 pg High 27-31 Mean Corpuscular HGB Conc 34 g/dL Normal 31-36 Red Cell Distribution Width 13 % Normal 10-15 Platelet Count 265 10^3/uL Normal 150-450 Mean Platelet Volume 7.2 fL Low 7.4-10.4 Abs Neutrophils 6.4 10^3/uL Normal 1.5-7.7 Abs Lymphocytes 1.4 10^3/uL Normal 1.0-4.8 Abs Monocytes 0.6 10^3/uL Normal 0-0.8 Abs Eosinophils 0.3 10^3/uL Normal 0-0.6 Abs Basophils 0.1 10^3/uL Normal 0-0.2 Abs Nucleated RBC 0.0 10^3/uL Granulocyte % 73.1 % Lymphocyte % 16.1 % Monocyte % 6.7 % Eosinophil % 3.3 % Basophil % 0.8 % Nucleated Red Blood Cells % 0.1 Urine Drug 08/01/2019 [facility] Urine None Detected None Detect SCR ED & [address] [place] [address] Screen [phone] Urine Barbiturates Screen None Detected None Detect Urine Benzodiazepine Screen None Detected None Detect Urine Cannabinoids Screen None Detected None Detect Urine Cocaine Screen None Detected None Detect Urine Opiates Screen None Detected None Detect Urine Phencyclidine Screen None Detected None Detect 10 Comp Metabolic 08/01/2019 [facility] Sodium 138 mmol/L Normal 135-[address] [place] [address] [phone] Chloride 107 mmol/L Normal 101-111 Co2 Carbon Dioxide 24 mmol/L Normal 22-32 Glucose 125 mg/dL High 70-100 Blood Urea Nitrogen 25 mg/dL High 6-24 Creatinine 1.26 mg/dL High 0.67-1.17 BUN/Creatinine Ratio 19.8 Normal 8-20 Calcium 9.1 mg/dL Normal 8.6-10.3 Total Protein 6.3 g/dL Low 6.4-8.9 Albumin 3.8 g/dL Normal 3.2-5.2 Globulin 2.5 g/dL Normal 2-4 Albumin/Globulin Ratio 1.5 Normal 1-3 Total Bilirubin 0.30 mg/dL Normal 0.2-1.0 Alkaline Phosphatase 79 U/L Normal 34-104 Alt 23 U/L Normal 7-52 Egfr Non- 59.4 >60 Egfr 71.9 >60 11 Potassium 4.1 mmol/L Normal 3.5-5.0 Anion Gap 7 mmol/L Normal 2-11 Ast 18 U/L Normal 13-39 Urinalysis Profile 08/01/2019 [facility] Urine Color Yellow [address] [place] [address] [phone] Urine Appearance Cloudy Urine Specific [place] 1.018 Normal 1.010-1.030 Urine pH 5.0 Normal 5-9 Urine Urobilinogen Negative Negative Urine Ketones Negative Negative Urine Protein Negative Negative Urine Leukocytes 2+ Abnormal Negative Urine Blood Negative Negative Urine Nitrite Negative Negative Urine Bilirubin Negative Negative Urine Glucose Negative Negative Urine White Blood Cell 3+(>20/hpf) Abnormal Absent Urine Red Blood Cell 2+(6-10/hpf) Abnormal Absent Urine Bacteria Absent Absent Urine Squamous Epithelial Cell Present Abnormal Absent Urine Culture And 07/17/2019 [facility] Urine Culture SEE RESULT [address] [place] [address] [phone] Urine Drug SCR ED 07/17/2019 [facility] Urine None None & Pain Clinic [address] [place] [address] Screen [phone] Urine Barbiturates Screen None Detected None Detect Urine Benzodiazepine Screen None Detected None Detect Urine Cannabinoids Screen None Detected None Detect Urine Cocaine Screen None Detected None Detect Urine Opiates Screen None Detected None Detect Urine Phencyclidine Screen None Detected None Detect 13 CBC Auto 07/17/2019 [facility] White Blood 8.7 10^3/uL Normal 3.5-10.[address] [place] [address] [phone] Red Blood Count 5.02 10^6/uL Normal 4.18-5.48 [...] Blood Cells % 0.1 Comp Metabolic 07/17/2019 [facility] Sodium 137 mmol/L Normal 135-[address] [place] [address] [phone] Chloride 108 mmol/L Normal 101-111 Co2 Carbon [...] Egfr Non- 66.7 >60 Egfr 80.7 >60 14 Potassium TNP mmol/L 3.5-5.0 15 Anion Gap 7 mmol/L Normal 2-11 Ast TNP U/L 13-39 16 Urinalysis Profile 07/17/2019 [facility] Urine Color Yellow [address] [place] [address] [phone] Urine Appearance Turbid Urine Specific [place] 1.018 Normal 1.010-1.030 Urine pH 7.0 Normal [...] Abnormal Absent Urine Sperm Present Abnormal Absent Laboratory test 07/17/2019 [facility] Acetaminophen < 15 g/mL [address] [place] [address] [phone] Alcohol < 10 mg/dL Normal <10 Salicylate < 2.50 mg/dL <30 TSH (Thyroid Stim Horm) 1.98 mcIU/mL Normal 0.34-5.60 Laboratory 06/29/2019 [facility] Troponin-I 0.02 <0.04 [address] (TnI) ng/[place] [address] [phone] CBC Auto Diff 06/28/2019 [facility] White Blood 7.3 Normal 3.5 -10.[address] Count 10^3/[place] [address] [phone] Red Blood Count 4.63 10^6/uL Normal 4.18-5.48 [...] Cells % 0.0 Comp Metabolic 06/28/2019 [facility] Sodium 138 mmol/L Normal 135-[address] [place] [address] [phone] Potassium 3.8 mmol/L Normal 3.5-5.0 Chloride 107 [...] Egfr Non- 64.1 >60 Egfr 77.5 >60 19 Laboratory test 06/28/2019 [facility] Troponin-I (TnI) 0.01 ng/ mL <0.04 [address] [place] [address] [phone] Lactic Acid 1.3 mmol/L Normal 0.5-2.0 21 Urine Culture And 05/15/2019 [facility] Urine SEE RESULT 22 , [address] [place] [address] [phone] Poc Urinalysis 05/15/2019 [facility] Poc Negative Negative [address] Glucose, [place] [address] Urine [phone] Poc Bilirubin, Urine Negative Negative Poc Ketone, Urine Negative Negative Poc Specific [place], Urine 1.025 Normal 1.010-1.030 Poc Blood, Urine Negative Negative Poc pH, Urine 5.0 Normal 5-9 Poc Protein, Urine Negative Negative Poc Urobilinogen, Urine 0.2 Negative Poc Nitrite, Urine Negative Negative Poc Leukocytes, Urine 1+ Abnormal Negative Poc Color, Urine Yellow Poc Clarity, Urine Cloudy 24 Urobilinogen-Ua 03/24/2019 N2N/CCD Import Urobilinogen-Ua neg Negative [...] Import Bilirubin-Ua Negative Negative - Negative Qual Bilirubin-Ua 03/17/2019 N2N/CCD Import Bilirubin-Ua Negative Negative - Negative Qual Blood-Ua 03/17/2019 N2N/CCD Import Blood-Ua TR High Negative - Negative Qual Glucose-Ua 03/17/2019 N2N/CCD Import Glucose-Ua Negative Negative - Negative Qual Ketones-Ua 03/17/2019 N2N/CCD Import Ketones-Ua Trace Negative - Negative Leuk Est-Ua 03/17/2019 N2N/CCD Import Leuk Est-Ua 1+ High Negative - Negative Qual Nitrite-Ua 03/17/2019 N2N/CCD Import Nitrite-Ua Negative Negative - Negative Qual PH-Ua 03/17/2019 N2N/CCD Import PH-Ua 6.5 _ 5 - 7 Protein-Ua 03/17/2019 N2N/CCD Import Protein-Ua 2+ SP Grav-Ua 03/17/2019 N2N/CCD Import SP Grav-Ua 1.025 _ 1.003 - 1.030 1 Standard intensity warfarin therapeutic range: 2.0-3.0 High intensity warfarin therapeutic range: 2.5-3.5 2 Critical Result LACT:2.5 Called to [id number] at: 16:31:18 by:[id number] Read back by:HANH [place] Severe Sepsis and Septic Shock Management Bundle Measure requires all lactic acids initially measuring >2.0 mmol/L be repeated. 3 Because ethnic data is not always readily [...] 15-29 5 Kidney failure <15 (or dialysis) 4 *Ascorbic acid is present which may interfere with detection of blood. 5 Because ethnic data is not always readily [...] 15-29 5 Kidney failure <15 (or dialysis) 6 Therapeutic concentration: <50 ug/mL Toxic concentration: >120 ug/mL 7 The urine specimen was tested at the listed cutoffs: Drug class test level (ng/mL) Amphetamines 500 Barbiturates 200 Benzodiazepine metabolites 200 Cocaine metabolites 150 Cannabinoids 50 Opiates 300 Pcp 25 Specimen was received without chain of custody. Results should be used for medical purposes only. 8 SEE RESULT BELOW Name: SONIA BANEGAS : [address]: Campbell Lucas MD Acct: [id number] Unit: [id number] AGE: 53 Location: [facility] Re08/01/19 SEX: M Status: ADM IN SPEC: [id number] SHAKIR: 08/01/[address] [facility] [address]: Gerald Collins MD REQ: [id number] RECD: 08/01/19 STATUS: ELVIRA BRENNAN DR: Chelsie Martinez [employer] _ SOURCE: URINE SPDESC: ORDERED: Urine Culture Procedure Result Reported Site Urine Culture Final 08/03/19- 1400 ML Organism 1 STAPHYLOCOCCUS HAEMOLYTICUS [place] Count >100,000 (Many) CFU/ML 1. STAPHYLOCOCCUS HAEMOLYTICUS M.I.C. RX --------- ------ Penicillin >=0.5 R Gentamicin <=0.5 S Linezolid 1 S Nitrofurantoin 32 S Oxacillin >=4 R * Quinupristin/Dalfopristin <=0.25 S Rifampin <=0.5 S Tetracycline <=1 S Doxycycline - Deduced S * Minocycline - Deduced S Tigecycline <=0.12 S Trimethoprim/Sulfamethoxazole <=10 S Vancomycin <=0.5 S Imipenem-Deduced R * Ampicillin/Sulbactam-Deduced R Cefazolin-Deduced R CONTINUED ON NEXT PAGE DEPARTMENT OF PATHOLOGY, [address] [place] [address] Rodolfo Rosales M.D. Director [facility] # [id number] Specimen: [id number] Collected: 08/01/19 Received: 08/01/19 (Continued) Procedure Result Reported Site Urine Culture Final (continued) * These antibiotics are not available in the [facility] Formulary Contact the Microbiology Department for any additional antibiotic reporting. * ML - Main Lab . END OF REPORT DEPARTMENT OF PATHOLOGY, [address] [place] [address] Rodolfo Rosales M.D. Director [facility] # [id number] 9 Therapeutic concentration: <50 ug/mL Toxic concentration: >120 ug/mL 10 The urine specimen was tested at the listed cutoffs: Drug class test level (ng/mL) Amphetamines 500 Barbiturates 200 Benzodiazepine metabolites 200 Cocaine metabolites 150 Cannabinoids 50 Opiates 300 Pcp 25 Specimen was received without chain of custody. Results should be used for medical purposes only. 11 Because ethnic data is not always readily [...] 15-29 5 Kidney failure <15 (or dialysis) 12 SEE RESULT BELOW Name: SONIA BANEGAS : [address]: Masood Rich MD Acct: [id number] Unit: [id number] AGE: 53 Location: [facility] Re07/17/19 SEX: M Status: ADM IN SPEC: [id number] SHAKIR: 07/17/[address]: Gerald Jalloh MD REQ: [id number] RECD: 07/17/194 STATUS: ELVIRA BRENNAN DR: Chelsie Martinez [employer] _ SOURCE: URINE SPDESC: ORDERED: Urine Culture Procedure Result Reported Site Urine Culture Final 07/18/19- 1501 ML Organism 1 AEROCOCCUS SPECIES [place] Count >100,000 (Many) CFU/ML Aerococcus isolates are too fastidious for routine susceptibility studies. Aerococcus are usually susceptible to penicillin, amoxicillin, piperacillin, cefipime, rifampin and vancomycin. Moderate to good activity occurs with the quinolones, tetracyclines and erythromycin. ([employer] [place] and Textbook of Diagnostic Microbiology 6th Ed. 2006, p. 705-6.) * ML - Main Lab . END OF REPORT DEPARTMENT OF PATHOLOGY, [address] [place] [address] Rodolfo Rosales M.D. Director [facility] # [id number] 13 The urine specimen was tested at the listed cutoffs: Drug class test level (ng/mL) Amphetamines 500 Barbiturates 200 Benzodiazepine metabolites 200 Cocaine metabolites 150 Cannabinoids 50 Opiates 300 Pcp 25 Specimen was received without chain of custody. Results should be used for medical purposes only. 14 Because ethnic data is not always readily [...] 15-29 5 Kidney failure <15 (or dialysis) 15 Specimen Hemolyzed. Result may not be valid. Unable to report test result due to hemolysis. 16 Unable to report test result due to hemolysis. 17 Therapeutic concentration: <50 ug/mL Toxic concentration: >120 ug/mL 18 Troponin-I testing on Plasma Separator Tubes (PST) has a known false positive rate of 0.20-0.40%. All positive troponins reflex immediately to secondary confirmatory testing. Using the [employer] DxI 800 Access Immunoassay systems, the 99th percentile upper reference limit was demonstrated to be < 0.03 ng/mL. 19 Because ethnic data is not always readily [...] 15-29 5 Kidney failure <15 (or dialysis) 20 Troponin-I testing on Plasma Separator Tubes (PST) has a known false positive rate of 0.20-0.40%. All positive troponins reflex immediately to secondary confirmatory testing. Using the [employer] DxI 800 Access Immunoassay systems, the 99th percentile upper reference limit was demonstrated to be < 0.03 ng/mL. 21 [facility] Severe Sepsis and Septic Shock Management Bundle Measure requires all lactic acids initially measuring >2.0 mmol/L be repeated. 22 [id number] 23 SEE RESULT BELOW Name: SONIA BANEGAS Anthony : [address]: Lyle Lizama MD Acct: [id number] Unit: [id number] AGE: 53 Location: [facility] Re05/15/19 SEX: M Status: DEP ER SPEC: [id number] SHAKIR: 05/15/19-[address] [facility] [address]: Vamsi Sharma NP REQ: [id number] RECD: 05/16/196 STATUS: COMP [facility] DR: Lyle Martinez [employer] _ [facility]: Urine Culture COMMENTS: [id number] QUERIES: Urine Source: Random Procedure Result Reported Site Urine Culture Final 05/18/19- 1134 ML Organism 1 AEROCOCCUS VIRIDANS [place] Count >100,000 (Many) CFU/ML Aerococcus isolates are too fastidious for routine susceptibility studies. Aerococcus are usually susceptible to penicillin, amoxicillin, piperacillin, cefipime, rifampin and vancomycin. Moderate to good activity occurs with the quinolones, tetracyclines and erythromycin. (M[employer] [place] and Textbook of Diagnostic Microbiology 6th Ed. 2006, p. 705-6.) * ML - Main Lab . END OF REPORT DEPARTMENT OF PATHOLOGY, [address] [place] [address] Rodolfo Rosales M.D. Director [facility] # [id number] Certified Optician: [id number] Procedures Description No Information Available Medical Devices Description No Information Available Encounters Type Date Location Provider Dx Diagnosis Office Visit 08/05/2019 11:45a [facility] Yossi Rodriguez MD R45.851 Suicidal ideations N39.0 Urinary tract infection, site not specified Z13.31 Encounter for screening for depression Office Visit 06/29/2019 10:00a [facility] ELIZABETH Ann R05 Cough J06.9 Acute upper respiratory infection, unspecified Assessments Date Code Description Provider 08/05/2019 R45.851 Suicidal ideations Lavon Rodriguez MD 08/05/2019 N39.0 Urinary tract infection, site not specified Lavon Rodriguez MD 08/05/2019 Z13.31 Encounter for screening for depression Lavon Rodriguez MD 06/29/2019 R05 Cough ELIZABETH Barajas 06/29/2019 J06.9 Acute upper respiratory infection, unspecified ELIZABETH Barajas 05/11/2019 Z23 Encounter for immunization Nurse Plan of Treatment No Information Available Functional Status Description No Information Available Mental Status Description No Information Available Referrals Description No Information Available
--- OUTSIDE RECORDS SUMMARY | 2019-09-10 04:04 | XMS REPORT | Continuity of Care Document ---
:1965 External Reference #:[id number] Author Name Lavon Rodriguez MD Address [address] [place] [address] Problems Active Problems Provider Date Chronic kidney [...] Strength teaspoonsful (20ml) by mouth twice a [id number]/5ML day Suspension Cetirizine HCL Oral; Take One [...] CPT Code Status Date Vaccine Lot # [id number] Given 05/11/2019 Flu < 65 years [id number] Given 05/11/2018 Flu < 65 years [id number] Given 04/07/2012 Pneumovax - for >=2years - [id number] Given 04/07/2012 Tdap - Boostrix/Adacel Vital Signs [...] Result H/L Range Note CBC Auto 09/09/2019 [facility] White Blood 7.1 10^3/uL Normal 3.5-10.[address] [place] [address] [phone] Red Blood Count 4.66 10^6/uL Normal 4.18-5.48 [...] Red Blood Cells % 0.0 INR/Protime 09/09/2019 [facility] INR 0.96 Normal 0.82-1.[address] [place] [address] [phone] Laboratory test 09/09/2019 [facility] Lactic 2.5 Critical 0.5- 2.0 [address] Acid mmol/L high [place], [place] [id number] [phone] Comp Metabolic 09/09/2019 [facility] Sodium 138 Normal 135- [address] mmol/L [place], [place] [address] [phone] Potassium 4.3 mmol/L Normal 3.5-5.0 Chloride 105 [...] Egfr 68.1 >60 3 Laboratory test 09/09/2019 [facility] Magnesium 1.8 mg/dL Low 1.9-2.[address] [place] [address] [phone] Lipase 34 U/L Normal 11.0-82.0 C Reactive Protein 5.87 mg/L Normal <8.01 CBC Auto 08/11/2019 [facility] White Blood 6.4 10^3/uL Normal 3.5-10.[address] [place] [address] [phone] Red Blood Count 4.47 10^6/uL Normal 4.18-5.48 [...] Blood Cells % 0.0 Urinalysis Profile 08/11/2019 [facility] Urine Color Yellow [address] [place] [address] [phone] Urine Appearance Clear Urine Specific [place] 1.015 Normal 1.010-1.030 Urine pH 6.0 Normal 5-9 Urine Urobilinogen Negative Negative Urine Ketones Negative Negative Urine Protein Negative Negative Urine Leukocytes Negative Negative Urine Blood Negative Negative Urine Nitrite Negative Negative Urine Bilirubin Negative Negative Urine Glucose Negative Negative Comp Metabolic 08/11/2019 [facility] Sodium 138 mmol/L Normal 135-145 Panel [address] [place] [address] [phone] Potassium 4.1 mmol/L Normal 3.5-5.0 Chloride 107 [...] Egfr Non- 46.4 >60 Egfr 56.2 >60 4 Laboratory test 08/11/2019 [facility] Acetaminophen < 15 g/mL [address] [place] [address] [phone] Alcohol < 10 mg/dL Normal <10 Salicylate < 2.50 mg/dL <30 TSH (Thyroid Stim Horm) 1.69 mcIU/mL Normal 0.34-5.60 Urine Drug 08/11/2019 [facility] Urine None Detected None Detect SCR ED & [address] [place] [address] Screen [phone] Urine Barbiturates Screen None Detected None Detect Urine Benzodiazepine Screen None Detected None Detect Urine Cannabinoids Screen None Detected None Detect Urine Opiates Screen None Detected None Detect Urine Phencyclidine Screen None Detected None Detect 6 Urine Cocaine Screen None Detected None Detect CFM Urinalysis 08/05/2019 [facility] Urine Specific [place] 1.020 ( )- - Ua PH Test [...] Ser/PLS [facility] 503 Urine Culture And 08/01/2019 [facility] Urine SEE RESULT [address] [place] [address] [phone] Laboratory test 08/01/2019 [facility] TSH (Thyroid 1.65 Normal 0.34- finding [address] Stim Horm) mcIU/mL 5.60 [place] [address] [phone] Acetaminophen < 15 g/mL 8 Alcohol < 10 mg/dL Normal <10 Salicylate < 2.50 mg/dL <30 CBC Auto 08/01/2019 [facility] White Blood 8.8 10^3/uL Normal 3.5-10.[address] [place] [address] [phone] Red Blood Count 4.42 10^6/uL Normal 4.18-5.48 [...] Blood Cells % 0.1 Urine Drug 08/01/2019 [facility] Urine None Detected None Detect SCR ED & [address] [place] [address] Screen [phone] Urine Barbiturates Screen None Detected None Detect Urine Benzodiazepine Screen None Detected None Detect Urine Cannabinoids Screen None Detected None Detect Urine Cocaine Screen None Detected None Detect Urine Opiates Screen None Detected None Detect Urine Phencyclidine Screen None Detected None Detect 9 Comp Metabolic 08/01/2019 [facility] Sodium 138 mmol/L Normal 135-[address] [place] [address] [phone] Chloride 107 mmol/L Normal 101-111 Co2 Carbon [...] Egfr Non- 59.4 >60 Egfr 71.9 >60 10 Potassium 4.1 mmol/L Normal 3.5-5.0 Anion Gap 7 mmol/L Normal 2-11 Ast 18 U/L Normal 13-39 Urinalysis Profile 08/01/2019 [facility] Urine Color Yellow [address] [place] [address] [phone] Urine Appearance Cloudy Urine Specific [place] 1.018 Normal 1.010-1.030 Urine pH 5.0 Normal [...] Present Abnormal Absent Urine Culture And 07/17/2019 [facility] Urine Culture SEE RESULT [address] BELOW [place], [place] [address] [phone] Urine Drug SCR ED 07/17/2019 [facility] Urine None None & Pain Clinic [address] [place] [address] Screen [phone] Urine Barbiturates Screen None Detected None Detect Urine Benzodiazepine Screen None Detected None Detect Urine Cannabinoids Screen None Detected None Detect Urine Cocaine Screen None Detected None Detect Urine Opiates Screen None Detected None Detect Urine Phencyclidine Screen None Detected None Detect 12 CBC Auto 07/17/2019 [facility] White Blood 8.7 10^3/uL Normal 3.5-10.[address] [place], [place] [address] [phone] Red Blood Count 5.02 10^6/uL Normal 4.18-5.48 [...] Blood Cells % 0.1 Comp Metabolic 07/17/2019 [facility] Sodium 137 mmol/L Normal 135-[address] [place] [id number] [phone] Chloride 108 mmol/L Normal 101-111 Co2 Carbon [...] Egfr Non- 66.7 >60 Egfr 80.7 >60 13 Potassium TNP mmol/L 3.5-5.0 14 Anion Gap 7 mmol/L Normal 2-11 Ast TNP U/L 13-39 15 Urinalysis Profile 07/17/2019 [facility] Urine Color Yellow [address] [place] [address] [phone] Urine Appearance Turbid Urine Specific [place] 1.018 Normal 1.010-1.030 Urine pH 7.0 Normal [...] Sperm Present Abnormal Absent Laboratory test 07/17/2019 [facility] Acetaminophen < 15 g/mL [address] [place] [address] [phone] Alcohol < 10 mg/dL Normal <10 Salicylate < 2.50 mg/dL <30 TSH (Thyroid Stim Horm) 1.98 mcIU/mL Normal 0.34-5.60 Laboratory 06/29/2019 [facility] Troponin-I 0.02 <0.04 [address] (TnI) ng/[place] [address] [phone] CBC Auto Diff 06/28/2019 [facility] White Blood 7.3 Normal 3.5 -10.[address] Count 10^3/[place] [address] [phone] Red Blood Count 4.63 10^6/uL Normal 4.18-5.48 [...] Blood Cells % 0.0 Comp Metabolic 06/28/2019 [facility] Sodium 138 mmol/L Normal 135-[address] [place] [address] [phone] Potassium 3.8 mmol/L Normal 3.5-5.0 Chloride 107 [...] Egfr Non- 64.1 >60 Egfr 77.5 >60 18 Laboratory test 06/28/2019 [facility] Troponin-I (TnI) 0.01 ng/ mL <0.04 [address] [place] [address] [phone] Lactic Acid 1.3 mmol/L Normal 0.5-2.0 20 Urine Culture And 05/15/2019 [facility] Urine SEE RESULT 21 , [address] [place] [address] [phone] Poc Urinalysis 05/15/2019 [facility] Poc Negative Negative [address] Glucose, [place] [address] Urine [phone] Poc Bilirubin, Urine Negative Negative Poc Ketone, Urine Negative Negative Poc Specific [place], Urine 1.025 Normal 1.010-1.030 Poc Blood, Urine Negative Negative Poc pH, Urine 5.0 Normal 5-9 Poc Protein, Urine Negative Negative Poc Urobilinogen, Urine 0.2 Negative Poc Nitrite, Urine Negative Negative Poc Leukocytes, Urine 1+ Abnormal Negative Poc Color, Urine Yellow Poc Clarity, Urine Cloudy 23 Urobilinogen-Ua 03/24/2019 N2N/CCD Import Urobilinogen-Ua neg Negative [...] 2.5-3.5 2 Critical Result LACT:2.5 Called to [id number] at: 16:31:18 by:[id number] Read back by:HANH [facility] Severe Sepsis and Septic Shock Management [...] 5 Kidney failure <15 (or dialysis) 4 Because ethnic data is not always readily [...] 15-29 5 Kidney failure <15 (or dialysis) 5 Therapeutic concentration: <50 ug/mL Toxic concentration: >120 ug/mL 6 The urine specimen was tested at the listed cutoffs: Drug class test level (ng/mL) Amphetamines 500 Barbiturates 200 Benzodiazepine metabolites 200 Cocaine metabolites 150 Cannabinoids 50 Opiates 300 Pcp 25 Specimen was received without chain of custody. Results should be used for medical purposes only. 7 SEE RESULT BELOW Name: SONIA BANEGAS : [address]: Campbell Lucas MD Acct: [id number] Unit: [id number] AGE: 53 Location: [facility] Re08/01/19 SEX: M Status: ADM IN SPEC: [id number] SHAKIR: 08/01/[address]: Gerald Collins MD REQ: [id number] RECD: 08/01/19 STATUS: ELVIRA [facility] DR: Chelsie Martinez [employer]ET [employer]ER _ SOURCE: URINE SPDESC: ORDERED: Urine Culture Procedure Result Reported Site Urine Culture Final 08/03/19- 1400 ML Organism 1 STAPHYLOCOCCUS HAEMOLYTICUS [place] Count >100,000 (Many) CFU/ML 1. STAPHYLOCOCCUS HAEMOLYTICUS [...] CONTINUED ON NEXT PAGE DEPARTMENT OF PATHOLOGY, [address] [place] [address] Rodolfo Rosales M.D. Director [facility] # [id number] Specimen: [id number] Collected: 08/01/19 Received: 08/01/19 (Continued) Procedure Result Reported Site Urine Culture Final (continued) * These antibiotics are not available in the [facility] Formulary Contact the Microbiology Department for any additional antibiotic reporting. * - Main Lab . END OF REPORT DEPARTMENT OF PATHOLOGY, [address] [place] [address] Rodolfo Rosales M.D. Director [facility] # [id number] 8 Therapeutic concentration: <50 ug/mL Toxic concentration: >120 ug/mL 9 The urine specimen was tested at the listed cutoffs: Drug class test level (ng/mL) Amphetamines 500 Barbiturates 200 Benzodiazepine metabolites 200 Cocaine metabolites 150 Cannabinoids 50 Opiates 300 Pcp 25 Specimen was received without chain of custody. Results should be used for medical purposes only. 10 Because ethnic data is not always [...] 5 Kidney failure <15 (or dialysis) 11 SEE RESULT BELOW Name: SONIA BANEGAS : [address]: Masood Rich MD Acct: [id number] Unit: [id number] AGE: 53 Location: [address] Re07/17/19 SEX: M Status: ADM IN SPEC: [id number] SHAKIR: 07/17/[address] [facility] [address]: Gerald Jalloh MD REQ: [id number] RECD: 07/17/19 STATUS: ELVIRA BRENNAN DR: Chelsie Martinez [employer]ER _ SOURCE: URINE [facility]: ORDERED: Urine Culture Procedure Result Reported Site Urine Culture Final 07/18/19- 1501 ML Organism 1 AEROCOCCUS SPECIES [place] Count >100,000 (Many) CFU/ML Aerococcus isolates are too fastidious for routine susceptibility studies. Aerococcus are usually susceptible to penicillin, amoxicillin, piperacillin, cefipime, rifampin and vancomycin. Moderate to good activity occurs with the quinolones, tetracyclines and erythromycin. ([employer] [place] and Textbook of Diagnostic Microbiology 6th Ed. 2006, p. 705-6.) * ML - Main Lab . END OF REPORT DEPARTMENT OF PATHOLOGY, [address] [place] [address] Rodolfo Rosales M.D. Director [facility] # [id number] 12 The urine specimen was tested at the listed cutoffs: Drug class test level (ng/mL) Amphetamines 500 Barbiturates 200 Benzodiazepine metabolites 200 Cocaine metabolites 150 Cannabinoids 50 Opiates 300 Pcp 25 Specimen was received without chain of custody. Results should be used for medical purposes only. 13 Because ethnic data is not always readily [...] 15-29 5 Kidney failure <15 (or dialysis) 14 Specimen Hemolyzed. Result may not be valid. Unable to report test result due to hemolysis. 15 Unable to report test result due to hemolysis. 16 Therapeutic concentration: <50 ug/mL Toxic concentration: >120 ug/mL 17 Troponin-I testing on Plasma Separator Tubes (PST) has a known false positive rate of 0.20-0.40%. All positive troponins reflex immediately to secondary confirmatory testing. Using the [employer] DxI 800 Access Immunoassay systems, the 99th percentile upper reference limit was demonstrated to be < 0.03 ng/mL. 18 Because ethnic data is not always readily [...] 15-29 5 Kidney failure <15 (or dialysis) 19 Troponin-I testing on Plasma Separator Tubes (PST) has a known false positive rate of 0.20-0.40%. All positive troponins reflex immediately to secondary confirmatory testing. Using the [employer] DxI 800 Access Immunoassay systems, the 99th percentile upper reference limit was demonstrated to be < 0.03 ng/mL. 20 [facility] Severe Sepsis and Septic Shock Management Bundle Measure requires all lactic acids initially measuring >2.0 mmol/L be repeated. 21 [id number] 22 SEE RESULT BELOW Name: SONIA BANEGAS Anthony : [address]: Lyle Lizama MD Acct: [id number] Unit: [id number] AGE: 53 Location: [facility] Re05/15/19 SEX: M Status: DEP ER SPEC: [id number] SHAKIR: 05/15/19-[address] [facility] [address]: Vamsi Sharma NP REQ: [id number] RECD: 05/16/196 STATUS: ELVIRA BRENNAN DR: Lyle Martinez [employer]ER _ SOURCE: URINE SPDESC: ORDERED: Urine Culture COMMENTS: [id number] QUERIES: Urine Source: Random Procedure Result Reported Site Urine Culture Final 05/18/19- 1134 ML Organism 1 AEROCOCCUS VIRIDANS [place] Count >100,000 (Many) CFU/ML Aerococcus isolates are too fastidious for routine susceptibility studies. Aerococcus are usually susceptible to penicillin, amoxicillin, piperacillin, cefipime, rifampin and vancomycin. Moderate to good activity occurs with the quinolones, tetracyclines and erythromycin. ([employer] [place] and Textbook of Diagnostic Microbiology 6th Ed. 2006, p. 705-6.) * - Main Lab . END OF REPORT DEPARTMENT OF PATHOLOGY, [address] [place] [address] Rodolfo Rosales M.D. Director [facility] # [id number] 23 Salvage Clerk: [id number] Procedures Description No Information Available Medical Devices Description No Information Available Encounters Type Date Location Provider Dx Diagnosis Office Visit 08/05/2019 11:45a [facility] Yossi Rodriguez MD R45.851 Suicidal ideations N39.0 Urinary tract infection, site not specified Z13.31 Encounter for screening for depression Office Visit 06/29/2019 10:00a [facility] ELIZABETH Ann R05 Cough [...]
[2019-09-10] MEDS ORDERED: LORazepam TAB(*) 1 MG PO ONE (04:20)
--- NOTE | 2019-09-10 04:34 | ED ---
Abdominal Pain/Male - HPI Summary HPI Summary: The pt is a 53 yr old male presenting to [facility] c/o abd pain and SI beginning several hours [employer]. Pt was brought in via ambulance with [employer] in attendance for 9.41. He was here for similar symptoms earlier and was diagnosed with bladder infection by Dr. Coon. He rates his current pain severity an 8/10. No aggravating or alleviating factors noted. - History of Current Complaint Chief Complaint: EDMentalHealth Stated Complaint: ABD PAIN PER PT Time Seen by Provider: 09/10/19 03:45 Hx Obtained From: Patient Onset/Duration: Sudden Onset, Still Present Timing: Constant, Lasting Hours Severity Initially: Severe Severity Currently: Severe Pain Intensity: 8 Pain Scale Used: 0-10 Numeric Location: Diffuse Aggravating Factor(s): Nothing Alleviating Factor(s): Nothing Associated Signs And Symptoms: Positive: Other - pos - abd pain - Allergies/Home Medications Allergies/Adverse Reactions: Allergies Allergy/AdvReac Type Severity Reaction Status Date / Time lactose Allergy Stomach Verified 09/09/19 14:45 Cramps PMH/Surg Hx/FS Hx/Imm Hx Endocrine/Hematology History: Reports: Hx Thyroid Disease Denies: Hx Anticoagulant Therapy, Hx Diabetes, Hx Systemic Lupus Erythematosus, Hx Anemia Cardiovascular History: Reports: Hx Hypercholesterolemia, Other Cardiovascular Problems/Disorders - HYPERLIPIDEMIA Denies: Hx Congestive Heart Failure, Hx Hypertension, Hx Pacemaker/ICD Respiratory History: Reports: Other Respiratory Problems/Disorders - Sarcoidosis Denies: Hx Asthma, Hx Chronic Bronchitis, Hx Chronic Obstructive Pulmonary Disease (COPD) GI History: Reports: Hx Gastroesophageal Reflux Disease, Hx Irritable Bowel, Hx Obstructive Bowel - Small bowel, Other GI Disorders - CYST REMOVED FROM BLADDER , LATE Denies: Hx Ulcer History: Reports: Hx Kidney Stones, Hx Renal Disease - LEFT KIDNEY DECREASE IN FUNCTION, Other Problems/Disorders - HX OF CYST IN THE BLADDER Denies: Hx Benign Prostatic Hyperplasia, Hx Dialysis Musculoskeletal History: Reports: Other Musculoskeletal History - Sarcoidosis Denies: Hx Rheumatoid Arthritis Sensory History: Reports: Hx Contacts or Glasses Denies: Hx Legally Blind, Hx Deafness, Hx Hearing Aid Opthamlomology History: Reports: Hx Contacts or Glasses Denies: Hx Legally Blind Neurological History: Reports: Hx Developmental Delay, Hx Headaches, Hx Seizures , Other Neuro Impairments/Disorders - "light concussion" Psychiatric History: Reports: Hx Anxiety, Hx Depression, Hx Panic Disorder, Hx Post Traumatic Stress Disorder, Hx Inpatient Treatment, Hx Community Mental Health Tx, Hx Suicide Attempt, Other Psychiatric Issues/Disorders Denies: Hx Attention Deficit Hyperactivity Disorder, Hx Eating Disorder, Hx Schizophrenia, Hx Bipolar Disorder, Hx of Violent Episodes Against Others, Hx Substance Abuse - Cancer History Hx Chemotherapy: No Hx Radiation Therapy: No - Surgical History Surgery Procedure, Year, and Place: 2008 APPENDECTOMY, [facility] CYST REMOVED FROM BLADDER, [facility] CHOLECYSTECTOMY-12/2012 Hx Anesthesia Reactions: No - Immunization History Date of Tetanus Vaccine: Unknown Date of Influenza Vaccine: Fall 2013 Infectious Disease History: No Infectious Disease History: Denies: Hx Clostridium Difficile, Hx Hepatitis, Hx Human Immunodeficiency Virus (HIV), Hx of Known/Suspected MRSA, Hx Shingles, Hx Tuberculosis, Hx Known/ Suspected VRE, Hx Known/Suspected VRSA, History Other Infectious Disease, Traveled Outside the in Last 30 Days - Family History Known Family History: Positive: Cardiac Disease, Hypertension - Father, Seizure Disorder - sister, Other - cancer - Social History Alcohol Use: None Alcohol Amount: none since 2011 Hx Substance Use: Yes Substance Use Type: Reports: None Substance Use Comment - Amount & Last Used: pt states he has not used any drugs since 2011. Hx Tobacco Use: Yes Smoking Status (MU): Heavy Every Day Tobacco Smoker Type: Cigarettes Length of Time of Smoking/Using Tobacco: 20YRS Have You Smoked in the Last Year: No Review of Systems Positive: Abdominal Pain Psychological: Other - pos - SI without plan All Other Systems Reviewed And Are Negative: Yes Physical Exam - Summary Physical Exam Summary: Appearance: Well-appearing, Well-nourished, lying in bed comfortably Skin: Warm, dry, no obvious rash Eyes: sclera anicteric, no conjunctival pallor ENT: mucous membranes moist, pharynx appears normal Neck: Supple, nontender Respiratory: Clear to auscultation, no signs of respiratory distress Cardiovascular: Normal S1, S2. No murmurs. Normal distal pulses in tibial and radial bilaterally. Abdomen: Soft, nontender, normal active bowel sounds present Musculoskeletal: Normal, Strength/ROM Intact Neurological: A&Ox3, awake and alert, mentation is normal, speech is fluent and appropriate Psychiatric: affect is normal, does not appear anxious or depressed Triage Information Reviewed: Yes Vital Signs On Initial Exam: Initial Vitals Temp Pulse Resp BP Pulse Ox 98.1 F 92 40 144/89 92 09/10/19 03:34 09/10/19 03:34 09/10/19 03:34 09/10/19 03:34 09/10/19 03:34 Vital Signs Reviewed: Yes Procedures - Sedation Patient Received Moderate/Deep Sedation with Procedure: No Diagnostics - Vital Signs Vital Signs Temp Pulse Resp BP Pulse Ox 09/10/19 04:26 28 09/10/19 03:34 98.1 F 92 40 144/89 92 - Laboratory Lab Statement: Any lab studies that have been ordered have been reviewed, and results considered in the medical decision making process. Abdominal Pain Male Course/Dx - Course Course Of Treatment: The pt is a 53 yr old male presenting to [facility] c/o abd pain and SI beginning several hours [employer]. Pt was brought in via ambulance with [employer] in attendance for 9.41. Final Dx is PTSD. Dr. Ramirez will admit the pt to [facility]. Pt is agreeable with this plan. - Diagnoses Provider Diagnoses: PTSD (post-traumatic stress disorder) - Provider Notifications Discussed Care Of Patient With: Samir Ramirez - Dr. Ramirez will admit the pt to [facility]. Time Discussed With Above Provider: 04:36 Instructed by Provider To: Admit As Inpatient Discharge ED - Sign-Out/Discharge Documenting (check all that apply): Patient Departure - adm - Discharge Plan Condition: Stable Disposition: ADMITTED TO [facility] - Billing Disposition and Condition Condition: STABLE Disposition: Admitted to [facility] - Attestation Statements Document Initiated by Santose: Yes Documenting Scribe: Gustavo Badillo Provider For Whom Caprice is Documenting (Include Credential): Gerald Jalloh MD Scribe Attestation: Gustavo John, scribed for Gerald Jalloh MD on 09/12/19 at 1622. Scribe Documentation Reviewed: Yes Provider Attestation: The documentation as recorded by the Gustavo farah accurately reflects the service I personally performed and the decisions made by me, Gerald Jalloh MD Status of Scribe Document: Viewed
[2019-09-10 05:03] LABS: Acetaminophen < 15 mcg/mL; Alcohol < 10 mg/dL (<10); Salicylate < 2.50 mg/dL (<30)
[2019-09-10] MEDS ORDERED: Al Hydrox/Mg Hydrox/Simet LIQ* 30 ML UDC ONE (06:25)
[2019-09-10] MEDS ORDERED: Topiramate TAB(*) 100 MG ONE (06:45)
[2019-09-10] MEDS ORDERED: Sulfamethox/Trimethoprim DS 800/160* TAB ONE (06:46)
[2019-09-10] MEDS ORDERED: Ondansetron ODT TAB* 4 MG ONE (06:46)
[2019-09-10] MEDS ORDERED: QUEtiapine TAB* 25 MG ONE (06:46)
[2019-09-10] MEDS ORDERED: DULoxetine DR CAP* 30 MG CAP.DR ONE (06:47)
[2019-09-10] MEDS: Famotidine TAB* 20 MG PO SCH ×2 (07:00→20:59)
[2019-09-10] MEDS ORDERED: Albuterol HFA INHALER* 8 gm MDI INH PRN (07:29)
[2019-09-10] MEDS ORDERED: Cetirizine* 10 MG TAB PO PRN (07:30)
[2019-09-10] MEDS ORDERED: Nicotine* 2MG (FRUIT FLAVOR) GUM PO PRN (07:32)
[2019-09-10] MEDS ORDERED: NICOTINE BOTH NARES PRN (07:33)
[2019-09-10] MEDS: Clotrimazole 1% CREAM* 45 GM TOPICAL SCH ×2 (09:32→21:03)
[2019-09-10] MEDS: Lidocaine 2% JELLY* 5 ML TUBE LIDO2GEL7 TOPICAL SCH ×4 (09:32→21:03)
[2019-09-10] MEDS: Sulfamethox/Trimethoprim DS 800/160* TAB PO SCH ×2 (09:35→20:59)
[2019-09-10] MEDS: Acetaminophen TAB* 325 MG PO PRN ×2 (09:36→17:16)
[2019-09-10] MEDS: Topiramate TAB(*) 100 MG PO SCH (09:37)
[2019-09-10] MEDS: Doxazosin TAB* 2 MG PO SCH (09:39)
[2019-09-10] MEDS: Ziprasidone CAP* 80 MG PO SCH ×2 (09:42→17:15)
[2019-09-10] MEDS: Vitamin THERAPEUTIC TAB PO SCH (09:42)
[2019-09-10] MEDS: Levothyroxine TAB* 50 MCG TAB PO SCH (09:42)
[2019-09-10] MEDS: Pantoprazole TAB * 40 MG TAB PO SCH (09:42)
[2019-09-10] MEDS: DULoxetine DR CAP* 30 MG CAP.DR PO SCH (09:44)
[2019-09-10] MEDS: DULoxetine DR CAP* 60 MG CAP.DR PO SCH (09:44)
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
[2019-09-10] MEDS: Atorvastatin* 20 MG TAB PO SCH (20:59)
[2019-09-10] MEDS: QUEtiapine TAB* 25 MG PO PRN (21:01)
[2019-09-10] MEDS: Zolpidem TAB* 5 MG PO PRN (21:01)
[2019-09-11] MEDS: Topiramate TAB(*) 100 MG PO SCH (08:23)
[2019-09-11] MEDS: Levothyroxine TAB* 50 MCG TAB PO SCH (08:24)
[2019-09-11] MEDS: Ziprasidone CAP* 80 MG PO SCH ×2 (08:24→17:36)
[2019-09-11] MEDS: Doxazosin TAB* 2 MG PO SCH (08:25)
[2019-09-11] MEDS: Sulfamethox/Trimethoprim DS 800/160* TAB PO SCH ×2 (08:25→18:38)
[2019-09-11] MEDS: DULoxetine DR CAP* 30 MG CAP.DR PO SCH (08:25)
[2019-09-11] MEDS: DULoxetine DR CAP* 60 MG CAP.DR PO SCH (08:26)
[2019-09-11] MEDS: Famotidine TAB* 20 MG PO SCH ×2 (08:26→18:38)
[2019-09-11] MEDS: Pantoprazole TAB * 40 MG TAB PO SCH (08:26)
[2019-09-11] MEDS: Vitamin THERAPEUTIC TAB PO SCH (08:27)
[2019-09-11] MEDS: Acetaminophen TAB* 325 MG PO PRN (09:19)
[2019-09-11] MEDS: Clotrimazole 1% CREAM* 45 GM TOPICAL SCH ×2 (10:37→20:01)
[2019-09-11] MEDS: Lidocaine 2% JELLY* 5 ML TUBE LIDO2GEL7 TOPICAL SCH ×4 (10:38→20:01)
[2019-09-11] MEDS: QUEtiapine TAB* 25 MG PO PRN ×3 (14:07→18:38)
[2019-09-11] MEDS: Atorvastatin* 20 MG TAB PO SCH (18:38)
[2019-09-11] MEDS: Al Hydrox/Mg Hydrox/Simet LIQ* 30 ML UDC PO PRN (18:38)
[2019-09-12] MEDS: Acetaminophen TAB* 325 MG PO PRN (00:05)
[2019-09-12] MEDS: Zolpidem TAB* 5 MG PO PRN (00:05)
[2019-09-12] MEDS: Levothyroxine TAB* 50 MCG TAB PO SCH (06:15)
[2019-09-12] MEDS: Ziprasidone CAP* 80 MG PO SCH ×2 (07:46→16:14)
[2019-09-12] MEDS: Clotrimazole 1% CREAM* 45 GM TOPICAL SCH ×2 (07:47→19:56)
[2019-09-12] MEDS: Topiramate TAB(*) 100 MG PO SCH (08:20)
[2019-09-12] MEDS: Vitamin THERAPEUTIC TAB PO SCH (08:20)
[2019-09-12] MEDS: DULoxetine DR CAP* 60 MG CAP.DR PO SCH (08:21)
[2019-09-12] MEDS: Famotidine TAB* 20 MG PO SCH ×2 (08:21→19:55)
[2019-09-12] MEDS: DULoxetine DR CAP* 30 MG CAP.DR PO SCH (08:21)
[2019-09-12] MEDS: Sulfamethox/Trimethoprim DS 800/160* TAB PO SCH ×2 (08:21→19:54)
[2019-09-12] MEDS: Pantoprazole TAB * 40 MG TAB PO SCH (08:21)
[2019-09-12] MEDS: Lidocaine 2% JELLY* 5 ML TUBE LIDO2GEL7 TOPICAL SCH ×2 (08:21→12:40)
[2019-09-12] MEDS: Doxazosin TAB* 2 MG PO SCH (08:22)
[2019-09-12] MEDS: LORazepam TAB(*) 1 MG PO PRN ×2 (10:27→17:18)
[2019-09-12] MEDS ORDERED: Lidocaine 2% JELLY* 5 ML TUBE LIDO2GEL7 TOPICAL PRN (12:53)
[2019-09-12] MEDS: QUEtiapine TAB* 25 MG PO SCH ×2 (14:09→19:54)
[2019-09-12] MEDS: Al Hydrox/Mg Hydrox/Simet LIQ* 30 ML UDC PO PRN (14:10)
[2019-09-12] MEDS: Ondansetron ODT TAB* 4 MG PO PRN (16:58)
[2019-09-12] MEDS: Atorvastatin* 20 MG TAB PO SCH (19:54)
--- NOTE | 2019-09-12 22:55 | PN ---
Subjective - Subjective Date of Service: 09/12/19 Service Type: 15038 Hosp care 15 min low complexity Subjective: Sonia reports feeling unsafe alone and demonstrates this by scraping his abdomen with a fork after lunch. Sonia indicates that the nightmares are too much for him and he doesn't know how to cope with them. He speaks minimally and shrugs his shoulders often. He is not interested in smiling. He stated, "I don' t want to hear 'I told you so.'" Objective - General Observations Appearance: Disheveled, Unkempt Appears Stated Age: Yes Stature: Overweight Posture: Slumped Eye Contact: Avoidant Behavior/Activity: Slowed - Interaction Observations Attitude Towards Examiner: Cooperative, Anxious Stated Mood: Dysphoric, Anxious, Angry Affect: Blunted Speech Pattern/Tone: Clear, Appropriate, Quiet Volume Thought Process: Coherent, Impoverished Perception: WNL Thought Content: Preoccupation/Ruminations, Depressive, Self-Deprecatory Thought Process: Lethality: Passive Wish, Suicidal Planning Hallucination Type: Auditory Delusion Type: None - Cognitive Function Orientation: A&O x 4 Level of Consciousness: Awake, Alert, Appropriate Cognition: Impaired Cognition, Impaired Fund of Knowledge Estimated Intelligence: Borderline Range Insight: WNL Judgment Within Normal Limits: No Ability to Make Reasonable Decisions: Moderately Impaired - Medication Compliance Cooperative with Inpatient Medication Regimen: Yes - Group Participation Participates in Group Activities: Partial Assessment - Assessment Merits Inpatient Hospitalization: For Immediate Safety Clinical Impression: Sonia is a 53-year-old white male diagnosed with post-traumatic stress disorder, major depressive disorder, and cluster A personality disorder traits who comes to the hospital a day after discharge from a lengthy stay on this unit ; the current admission is related to nightmares that frightened Sonia into being suicidal and self injurious. Plan - Plan Treatment Plan: Name: SONIA MONDRAGON Birthdate: 1965 [id number] Sonia is admitted with the plan to send him to [facility]. The IRF will be sent in the next few days to initiate Sonia's referral. We will consider increasing Geodon, although when Sonia is not experiencing nightmares, he does not hear voices. Medications: Current Medications Acetaminophen (Tylenol Tab*) 650 mg PO Q4H PRN PRN Reason: PAIN or TEMP > 101 F Last Admin: 09/12/19 00:05 Dose: 650 mg Al Hydrox/Mg Hydrox/Simethicone (Maalox Plus*) 30 ml PO Q4H PRN PRN Reason: INDIGESTION Last Admin: 09/12/19 14:10 Dose: 30 ml Albuterol (Ventolin Hfa Inhaler*) 2 puff INH Q4H PRN PRN Reason: SHORTNESS OF BREATH Atorvastatin Calcium (Lipitor*) 20 mg PO 2100 [facility] Last Admin: 09/12/19 19:54 Dose: 20 mg Cetirizine HCl (Zyrtec*) 10 mg PO DAILY PRN PRN Reason: ALLERGY SYMPTOMS Clotrimazole (Clotrimazole 1%*) 1 applic TOPICAL BID [facility] Last Admin: 09/12/19 19:56 Dose: Not Given Doxazosin Mesylate (Cardura Tab*) 4 mg PO DAILY [facility] Last Admin: 09/12/19 08:22 Dose: 4 mg Duloxetine HCl (Cymbalta Cap*) 60 mg PO DAILY [facility] Last Admin: 09/12/19 08:21 Dose: 60 mg Duloxetine HCl (Cymbalta Cap*) 30 mg PO DAILY [facility] Last Admin: 09/12/19 08:21 Dose: 30 mg Famotidine (Pepcid Tab*) 20 mg PO BID [facility] Last Admin: 09/12/19 19:55 Dose: 20 mg Levothyroxine Sodium (Synthroid Tab*) 50 mcg PO DAILY@0600 [facility] Last Admin: 09/12/19 06:15 Dose: 50 mcg Lidocaine HCl (Lidocaine 2% Jelly*) 1 applic TOPICAL QID PRN PRN Reason: self-catheterization Lorazepam (Ativan Tab(*)) 1 mg PO Q4H PRN PRN Reason: ANXIETY Last Admin: 09/12/19 17:18 Dose: 1 mg Multivitamins (Theragran Tab*) 1 tab PO DAILY [facility] Last Admin: 09/12/19 08:20 Dose: 1 tab Nicotine Polacrilex (Nicotine Gum*) 2 mg PO Q2H PRN PRN Reason: CRAVINGS Nf Med Nicotrol Ns (10mg/Ml Nasal [place]) 1 dose BOTH NARES Q1H PRN PRN Reason: CRAVINGS Ondansetron HCl (Zofran Odt Tab*) 4 mg PO Q8H PRN PRN Reason: NAUSEA Last Admin: 09/12/19 16:58 Dose: 4 mg Pantoprazole Sodium (Protonix Tab*) 40 mg PO DAILY [facility] Last Admin: 09/12/19 08:21 Dose: 40 mg Prazosin HCl (Minipress 1 Mg Cap) 2 mg PO BEDTIME [facility] Last Admin: 09/12/19 19:53 Dose: 2 mg Prochlorperazine (Compazine 5 Mg Tab) 5 mg PO BID PRN PRN Reason: NAUSEA Last Admin: 09/10/19 09:36 Dose: 5 mg Quetiapine Fumarate (Seroquel Tab*) 50 mg PO TID [facility] Last Admin: 09/12/19 19:54 Dose: 50 mg Topiramate (Topamax(*)) 100 mg PO DAILY [facility] Last Admin: 09/12/19 08:20 Dose: 100 mg Trimethoprim/Sulfamethoxazole (Bactrim Ds 800/160 Tab*) 1 tab PO BID [facility] Stop: 09/20/19 08:59 Last Admin: 09/12/19 19:54 Dose: 1 tab Ziprasidone (Geodon Cap*) 80 mg PO BID WITH MEALS [facility] Last Admin: 09/12/19 16:14 Dose: 80 mg Zolpidem Tartrate (Ambien Tab*) 5 mg PO BEDTIME PRN PRN Reason: SLEEP Last Admin: 09/12/19 00:05 Dose: 5 mg
[2019-09-13] MEDS: Zolpidem TAB* 5 MG PO PRN ×2 (00:01→21:48)
[2019-09-13] MEDS: Acetaminophen TAB* 325 MG PO PRN (06:07)
[2019-09-13] MEDS: Levothyroxine TAB* 50 MCG TAB PO SCH (06:50)
[2019-09-13] MEDS: Clotrimazole 1% CREAM* 45 GM TOPICAL SCH ×2 (07:51→21:46)
[2019-09-13 07:53] LABS: HDL Cholesterol 21.8 mg/dL
[2019-09-13] MEDS: Famotidine TAB* 20 MG PO SCH ×2 (08:14→21:39)
[2019-09-13] MEDS: Doxazosin TAB* 2 MG PO SCH (08:14)
[2019-09-13] MEDS: Pantoprazole TAB * 40 MG TAB PO SCH (08:14)
[2019-09-13] MEDS: QUEtiapine TAB* 25 MG PO SCH ×3 (08:14→21:40)
[2019-09-13] MEDS: DULoxetine DR CAP* 30 MG CAP.DR PO SCH (08:15)
[2019-09-13] MEDS: Topiramate TAB(*) 100 MG PO SCH (08:15)
[2019-09-13] MEDS: Vitamin THERAPEUTIC TAB PO SCH (08:15)
[2019-09-13] MEDS: Ziprasidone CAP* 80 MG PO SCH ×2 (08:15→16:54)
[2019-09-13] MEDS: Sulfamethox/Trimethoprim DS 800/160* TAB PO SCH ×2 (08:15→21:41)
[2019-09-13] MEDS: DULoxetine DR CAP* 60 MG CAP.DR PO SCH (08:15)
[2019-09-13] MEDS: Al Hydrox/Mg Hydrox/Simet LIQ* 30 ML UDC PO PRN (09:36)
[2019-09-13] MEDS: LORazepam TAB(*) 1 MG PO PRN ×2 (12:26→19:24)
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
[2019-09-13] MEDS: Atorvastatin* 20 MG TAB PO SCH (21:38)
[2019-09-14] MEDS: Acetaminophen TAB* 325 MG PO PRN (01:00)
[2019-09-14] MEDS: LORazepam TAB(*) 1 MG PO PRN (01:20)
[2019-09-14] MEDS: Famotidine TAB* 20 MG PO SCH ×2 (08:19→20:22)
[2019-09-14] MEDS: Ziprasidone CAP* 80 MG PO SCH ×2 (08:19→16:23)
[2019-09-14] MEDS: DULoxetine DR CAP* 30 MG CAP.DR PO SCH (08:19)
[2019-09-14] MEDS: DULoxetine DR CAP* 60 MG CAP.DR PO SCH (08:19)
[2019-09-14] MEDS: Topiramate TAB(*) 100 MG PO SCH (08:19)
[2019-09-14] MEDS: Doxazosin TAB* 2 MG PO SCH (08:19)
[2019-09-14] MEDS: Pantoprazole TAB * 40 MG TAB PO SCH (08:19)
[2019-09-14] MEDS: Vitamin THERAPEUTIC TAB PO SCH (08:20)
[2019-09-14] MEDS: QUEtiapine TAB* 25 MG PO SCH ×3 (08:20→20:23)
[2019-09-14] MEDS: Sulfamethox/Trimethoprim DS 800/160* TAB PO SCH ×2 (08:20→20:24)
[2019-09-14] MEDS: Levothyroxine TAB* 50 MCG TAB PO SCH (08:20)
[2019-09-14] MEDS: Clotrimazole 1% CREAM* 45 GM TOPICAL SCH ×2 (08:22→20:25)
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
[2019-09-14] MEDS: Atorvastatin* 20 MG TAB PO SCH (20:22)
[2019-09-14] MEDS: Zolpidem TAB* 5 MG PO PRN (20:27)
[2019-09-15] MEDS: LORazepam TAB(*) 1 MG PO PRN (01:16)
[2019-09-15] MEDS: Al Hydrox/Mg Hydrox/Simet LIQ* 30 ML UDC PO PRN (07:26)
[2019-09-15] MEDS: Levothyroxine TAB* 50 MCG TAB PO SCH (07:26)
[2019-09-15] MEDS: Famotidine TAB* 20 MG PO SCH ×2 (08:12→21:00)
[2019-09-15] MEDS: Topiramate TAB(*) 100 MG PO SCH (08:13)
[2019-09-15] MEDS: Doxazosin TAB* 2 MG PO SCH (08:13)
[2019-09-15] MEDS: Ziprasidone CAP* 80 MG PO SCH ×2 (08:13→16:51)
[2019-09-15] MEDS: DULoxetine DR CAP* 30 MG CAP.DR PO SCH (08:14)
[2019-09-15] MEDS: DULoxetine DR CAP* 60 MG CAP.DR PO SCH (08:14)
[2019-09-15] MEDS: Sulfamethox/Trimethoprim DS 800/160* TAB PO SCH ×2 (08:14→20:59)
[2019-09-15] MEDS: QUEtiapine TAB* 25 MG PO SCH ×3 (08:14→21:00)
[2019-09-15] MEDS: Pantoprazole TAB * 40 MG TAB PO SCH (08:15)
[2019-09-15] MEDS: Clotrimazole 1% CREAM* 45 GM TOPICAL SCH ×2 (08:15→21:02)
[2019-09-15] MEDS: Vitamin THERAPEUTIC TAB PO SCH (08:15)
[2019-09-15] MEDS: Ondansetron ODT TAB* 4 MG PO PRN (09:36)
[2019-09-15] MEDS: Acetaminophen TAB* 325 MG PO PRN (14:00)
[2019-09-15] MEDS: Atorvastatin* 20 MG TAB PO SCH (21:00)
[2019-09-15] MEDS: Zolpidem TAB* 5 MG PO PRN (21:01)
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
[2019-09-16] MEDS: LORazepam TAB(*) 1 MG PO PRN (01:49)
[2019-09-16] MEDS: DULoxetine DR CAP* 60 MG CAP.DR PO SCH (08:44)
[2019-09-16] MEDS: Ziprasidone CAP* 80 MG PO SCH ×2 (08:44→17:37)
[2019-09-16] MEDS: Vitamin THERAPEUTIC TAB PO SCH (08:44)
[2019-09-16] MEDS: Topiramate TAB(*) 100 MG PO SCH (08:44)
[2019-09-16] MEDS: DULoxetine DR CAP* 30 MG CAP.DR PO SCH (08:44)
[2019-09-16] MEDS: Sulfamethox/Trimethoprim DS 800/160* TAB PO SCH ×2 (08:44→20:27)
[2019-09-16] MEDS: Doxazosin TAB* 2 MG PO SCH (08:45)
[2019-09-16] MEDS: Famotidine TAB* 20 MG PO SCH ×2 (08:45→20:27)
[2019-09-16] MEDS: QUEtiapine TAB* 25 MG PO SCH ×3 (08:45→20:26)
[2019-09-16] MEDS: Pantoprazole TAB * 40 MG TAB PO SCH (08:45)
[2019-09-16] MEDS: Levothyroxine TAB* 50 MCG TAB PO SCH (08:46)
[2019-09-16] MEDS: Clotrimazole 1% CREAM* 45 GM TOPICAL SCH ×2 (08:46→21:09)
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
--- NOTE | 2019-09-16 12:06 | PN ---
BSU: Group Therapy Note - Service Type Service Type: 92202 Group Psychotherapy - Cognitive Behavioral Group Therapy ( CBT):Patient attended CBT programming this morning and presented with flat affect that did not vary with discussion. Although responsive to direct prompts to respond to questions, patient did not engage in spontaneous conversation.
[2019-09-16] MEDS: Zolpidem TAB* 5 MG PO PRN (20:26)
[2019-09-16] MEDS: Atorvastatin* 20 MG TAB PO SCH (20:27)
[2019-09-17] MEDS: LORazepam TAB(*) 1 MG PO PRN (01:35)
[2019-09-17] MEDS: Levothyroxine TAB* 50 MCG TAB PO SCH (08:08)
[2019-09-17] MEDS: Ziprasidone CAP* 80 MG PO SCH ×2 (08:48→17:34)
[2019-09-17] MEDS: QUEtiapine TAB* 25 MG PO SCH ×3 (08:49→20:31)
[2019-09-17] MEDS: Topiramate TAB(*) 100 MG PO SCH (08:49)
[2019-09-17] MEDS: Pantoprazole TAB * 40 MG TAB PO SCH (08:49)
[2019-09-17] MEDS: Sulfamethox/Trimethoprim DS 800/160* TAB PO SCH ×2 (08:50→20:31)
[2019-09-17] MEDS: DULoxetine DR CAP* 30 MG CAP.DR PO SCH (08:50)
[2019-09-17] MEDS: Vitamin THERAPEUTIC TAB PO SCH (08:50)
[2019-09-17] MEDS: Famotidine TAB* 20 MG PO SCH ×2 (08:51→20:31)
[2019-09-17] MEDS: DULoxetine DR CAP* 60 MG CAP.DR PO SCH (08:51)
[2019-09-17] MEDS: Doxazosin TAB* 2 MG PO SCH (08:51)
[2019-09-17] MEDS: Clotrimazole 1% CREAM* 45 GM TOPICAL SCH ×2 (08:52→20:32)
[2019-09-17] MEDS: Atorvastatin* 20 MG TAB PO SCH (20:30)
[2019-09-17] MEDS: Zolpidem TAB* 5 MG PO PRN (20:31)
[2019-09-18] MEDS: LORazepam TAB(*) 1 MG PO PRN ×2 (01:30→11:28)
[2019-09-18] MEDS: Levothyroxine TAB* 50 MCG TAB PO SCH (07:51)
[2019-09-18] MEDS: Famotidine TAB* 20 MG PO SCH ×2 (08:23→20:35)
[2019-09-18] MEDS: DULoxetine DR CAP* 30 MG CAP.DR PO SCH (08:23)
[2019-09-18] MEDS: QUEtiapine TAB* 25 MG PO SCH ×3 (08:23→20:36)
[2019-09-18] MEDS: Vitamin THERAPEUTIC TAB PO SCH (08:23)
[2019-09-18] MEDS: Pantoprazole TAB * 40 MG TAB PO SCH (08:23)
[2019-09-18] MEDS: Sulfamethox/Trimethoprim DS 800/160* TAB PO SCH ×2 (08:23→20:36)
[2019-09-18] MEDS: Topiramate TAB(*) 100 MG PO SCH (08:23)
[2019-09-18] MEDS: Doxazosin TAB* 2 MG PO SCH (08:23)
[2019-09-18] MEDS: DULoxetine DR CAP* 60 MG CAP.DR PO SCH (08:23)
[2019-09-18] MEDS: Ziprasidone CAP* 80 MG PO SCH ×2 (08:23→17:20)
[2019-09-18] MEDS: Clotrimazole 1% CREAM* 45 GM TOPICAL SCH ×2 (08:24→20:34)
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
[2019-09-18] MEDS: Atorvastatin* 20 MG TAB PO SCH (20:34)
[2019-09-18] MEDS: Zolpidem TAB* 5 MG PO PRN (20:38)
[2019-09-19] MEDS: Acetaminophen TAB* 325 MG PO PRN ×2 (00:55→21:41)
[2019-09-19] MEDS: Ziprasidone CAP* 80 MG PO SCH ×2 (07:32→17:23)
[2019-09-19] MEDS: Levothyroxine TAB* 50 MCG TAB PO SCH (07:33)
[2019-09-19] MEDS: DULoxetine DR CAP* 30 MG CAP.DR PO SCH (09:46)
[2019-09-19] MEDS: QUEtiapine TAB* 25 MG PO SCH ×3 (09:47→20:47)
[2019-09-19] MEDS: Pantoprazole TAB * 40 MG TAB PO SCH (09:47)
[2019-09-19] MEDS: DULoxetine DR CAP* 60 MG CAP.DR PO SCH (09:47)
[2019-09-19] MEDS: Famotidine TAB* 20 MG PO SCH ×2 (09:47→20:47)
[2019-09-19] MEDS: Topiramate TAB(*) 100 MG PO SCH (09:47)
[2019-09-19] MEDS: Sulfamethox/Trimethoprim DS 800/160* TAB PO SCH ×2 (09:47→20:46)
[2019-09-19] MEDS: Vitamin THERAPEUTIC TAB PO SCH (09:47)
[2019-09-19] MEDS: Doxazosin TAB* 2 MG PO SCH (09:47)
[2019-09-19] MEDS: Clotrimazole 1% CREAM* 45 GM TOPICAL SCH ×2 (09:49→21:40)
--- NOTE | 2019-09-19 11:40 | PN ---
BSU: Group Therapy Note - Service Type Service Type: [id number] Group Psychotherapy - Cognitive Behavioral Group Therapy ( CBT):Patient was attentive and participatory in CBT programming this morning, and remained in good behavioral control. Patient expressed positive insights regarding relevant treatment interventions and goals.
[2019-09-19] MEDS: Al Hydrox/Mg Hydrox/Simet LIQ* 30 ML UDC PO PRN (14:54)
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
[2019-09-19] MEDS: Zolpidem TAB* 5 MG PO PRN (20:46)
[2019-09-19] MEDS: Atorvastatin* 20 MG TAB PO SCH (20:47)
[2019-09-20] MEDS: LORazepam TAB(*) 1 MG PO PRN (01:31)
[2019-09-20] MEDS: Levothyroxine TAB* 50 MCG TAB PO SCH (06:42)
[2019-09-20] MEDS: Topiramate TAB(*) 100 MG PO SCH (08:08)
[2019-09-20] MEDS: Ziprasidone CAP* 80 MG PO SCH ×2 (08:08→16:29)
[2019-09-20] MEDS: Pantoprazole TAB * 40 MG TAB PO SCH (08:08)
[2019-09-20] MEDS: Doxazosin TAB* 2 MG PO SCH (08:08)
[2019-09-20] MEDS: Vitamin THERAPEUTIC TAB PO SCH (08:09)
[2019-09-20] MEDS: QUEtiapine TAB* 25 MG PO SCH ×3 (08:09→20:49)
[2019-09-20] MEDS: Famotidine TAB* 20 MG PO SCH ×2 (08:09→20:48)
[2019-09-20] MEDS: DULoxetine DR CAP* 30 MG CAP.DR PO SCH (08:10)
[2019-09-20] MEDS: Clotrimazole 1% CREAM* 45 GM TOPICAL SCH ×2 (08:10→20:48)
[2019-09-20] MEDS: DULoxetine DR CAP* 60 MG CAP.DR PO SCH (08:10)
[2019-09-20] MEDS: Al Hydrox/Mg Hydrox/Simet LIQ* 30 ML UDC PO PRN (09:21)
[2019-09-20] MEDS: Ondansetron ODT TAB* 4 MG PO PRN (10:05)
[2019-09-20] MEDS: Atorvastatin* 20 MG TAB PO SCH (20:48)
[2019-09-20] MEDS: Zolpidem TAB* 5 MG PO PRN (20:52)
[2019-09-20] MEDS: Acetaminophen TAB* 325 MG PO PRN (22:51)
[2019-09-21] MEDS: LORazepam TAB(*) 1 MG PO PRN (03:05)
[2019-09-21] MEDS: Levothyroxine TAB* 50 MCG TAB PO SCH (07:10)
[2019-09-21] MEDS: Topiramate TAB(*) 100 MG PO SCH (08:11)
[2019-09-21] MEDS: Vitamin THERAPEUTIC TAB PO SCH (08:11)
[2019-09-21] MEDS: DULoxetine DR CAP* 30 MG CAP.DR PO SCH (08:11)
[2019-09-21] MEDS: Pantoprazole TAB * 40 MG TAB PO SCH (08:11)
[2019-09-21] MEDS: DULoxetine DR CAP* 60 MG CAP.DR PO SCH (08:11)
[2019-09-21] MEDS: Ziprasidone CAP* 80 MG PO SCH ×2 (08:12→17:00)
[2019-09-21] MEDS: QUEtiapine TAB* 25 MG PO SCH ×3 (08:12→20:11)
[2019-09-21] MEDS: Famotidine TAB* 20 MG PO SCH ×2 (08:12→20:11)
[2019-09-21] MEDS: Doxazosin TAB* 2 MG PO SCH (08:12)
[2019-09-21] MEDS: Clotrimazole 1% CREAM* 45 GM TOPICAL SCH ×2 (10:51→20:11)
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
[2019-09-21] MEDS: Atorvastatin* 20 MG TAB PO SCH (20:11)
[2019-09-21] MEDS: Zolpidem TAB* 5 MG PO PRN (20:13)
[2019-09-21] MEDS: Acetaminophen TAB* 325 MG PO PRN (21:05)
[2019-09-22] MEDS: Al Hydrox/Mg Hydrox/Simet LIQ* 30 ML UDC PO PRN ×3 (06:05→15:46)
[2019-09-22] MEDS: Levothyroxine TAB* 50 MCG TAB PO SCH (07:23)
[2019-09-22] MEDS: Ondansetron ODT TAB* 4 MG PO PRN ×2 (07:24→15:05)
[2019-09-22] MEDS: Doxazosin TAB* 2 MG PO SCH (08:24)
[2019-09-22] MEDS: DULoxetine DR CAP* 60 MG CAP.DR PO SCH (08:24)
[2019-09-22] MEDS: Topiramate TAB(*) 100 MG PO SCH (08:25)
[2019-09-22] MEDS: Vitamin THERAPEUTIC TAB PO SCH (08:25)
[2019-09-22] MEDS: Pantoprazole TAB * 40 MG TAB PO SCH (08:25)
[2019-09-22] MEDS: DULoxetine DR CAP* 30 MG CAP.DR PO SCH (08:25)
[2019-09-22] MEDS: Famotidine TAB* 20 MG PO SCH ×2 (08:25→20:10)
[2019-09-22] MEDS: QUEtiapine TAB* 25 MG PO PRN ×2 (08:27→20:25)
[2019-09-22] MEDS: Clotrimazole 1% CREAM* 45 GM TOPICAL SCH ×2 (10:18→20:09)
[2019-09-22] MEDS: Ziprasidone * 20 MG CAP (generic Geodon) PO SCH (10:20)
[2019-09-22] MEDS ORDERED: Ziprasidone * 20 MG CAP (generic Geodon) PO SCH (17:00)
[2019-09-22] MEDS: Acetaminophen TAB* 325 MG PO PRN (17:39)
[2019-09-22] MEDS: Atorvastatin* 20 MG TAB PO SCH (20:09)
[2019-09-22] MEDS: Zolpidem TAB* 5 MG PO PRN (20:26)
[2019-09-22] MEDS ORDERED: risperiDONE TAB* 1 MG PO SCH (21:00)
[2019-09-23] MEDS: Levothyroxine TAB* 50 MCG TAB PO SCH (06:50)
[2019-09-23] MEDS: DULoxetine DR CAP* 60 MG CAP.DR PO SCH (08:31)
[2019-09-23] MEDS: Vitamin THERAPEUTIC TAB PO SCH (08:31)
[2019-09-23] MEDS: DULoxetine DR CAP* 30 MG CAP.DR PO SCH (08:31)
[2019-09-23] MEDS: Pantoprazole TAB * 40 MG TAB PO SCH (08:32)
[2019-09-23] MEDS: Famotidine TAB* 20 MG PO SCH ×2 (08:32→21:30)
[2019-09-23] MEDS: Doxazosin TAB* 2 MG PO SCH (08:32)
[2019-09-23] MEDS: Ziprasidone * 20 MG CAP (generic Geodon) PO SCH ×2 (08:33→17:26)
[2019-09-23] MEDS: Topiramate TAB(*) 100 MG PO SCH (08:33)
[2019-09-23] MEDS: Al Hydrox/Mg Hydrox/Simet LIQ* 30 ML UDC PO PRN ×2 (08:35→16:07)
[2019-09-23] MEDS: Ondansetron ODT TAB* 4 MG PO PRN (08:59)
[2019-09-23] MEDS: Clotrimazole 1% CREAM* 45 GM TOPICAL SCH ×2 (09:56→21:39)
[2019-09-23] MEDS: LORazepam TAB(*) 1 MG PO PRN ×2 (09:59→17:25)
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
[2019-09-23 17:53] LABS: Urine Appearance Cloudy; Urine Bilirubin Negative (Negative); Urine Blood Negative (Negative); Urine Color Yellow; Urine Glucose Negative (Negative); Urine Ketones Trace (Negative); Urine Nitrite Positive (Negative); Urine Protein Negative (Negative); Urine Specific Gravity 1.015 (1.010-1.030); Urine Urobilinogen Negative (Negative)
[2019-09-23 17:57] LABS: Urine Bacteria Absent (Absent); Urine Red Blood Cell Absent (Absent); Urine White Blood Cell Trace(0-5/hpf) (Absent)
[2019-09-23] MEDS: risperiDONE TAB* 1 MG PO SCH (21:30)
[2019-09-23] MEDS: Atorvastatin* 20 MG TAB PO SCH (21:30)
[2019-09-23] MEDS: QUEtiapine TAB* 25 MG PO PRN (21:33)
[2019-09-23] MEDS: Zolpidem TAB* 5 MG PO PRN (21:34)
[2019-09-24] MEDS: Famotidine TAB* 20 MG PO SCH ×2 (08:22→20:15)
[2019-09-24] MEDS: Doxazosin TAB* 2 MG PO SCH (08:22)
[2019-09-24] MEDS: Levothyroxine TAB* 50 MCG TAB PO SCH (08:22)
[2019-09-24] MEDS: Pantoprazole TAB * 40 MG TAB PO SCH (08:22)
[2019-09-24] MEDS: DULoxetine DR CAP* 60 MG CAP.DR PO SCH (08:23)
[2019-09-24] MEDS: DULoxetine DR CAP* 30 MG CAP.DR PO SCH (08:23)
[2019-09-24] MEDS: Clotrimazole 1% CREAM* 45 GM TOPICAL SCH ×2 (08:23→20:15)
[2019-09-24] MEDS: Ziprasidone * 20 MG CAP (generic Geodon) PO SCH ×2 (08:23→18:13)
[2019-09-24] MEDS: Vitamin THERAPEUTIC TAB PO SCH (08:23)
[2019-09-24] MEDS: Topiramate TAB(*) 100 MG PO SCH (08:23)
[2019-09-24] MEDS: QUEtiapine TAB* 25 MG PO PRN ×2 (12:12→20:17)
[2019-09-24] MEDS ORDERED: chlorproMAZINE TAB* 50 MG PO PRN (16:45)
[2019-09-24] MEDS: risperiDONE TAB* 1 MG PO SCH (20:16)
[2019-09-24] MEDS: Atorvastatin* 20 MG TAB PO SCH (20:16)
[2019-09-24] MEDS: Zolpidem TAB* 5 MG PO PRN (20:17)
[2019-09-25] MEDS: DULoxetine DR CAP* 60 MG CAP.DR PO SCH (08:57)
[2019-09-25] MEDS: DULoxetine DR CAP* 30 MG CAP.DR PO SCH (08:57)
[2019-09-25] MEDS: Levothyroxine TAB* 50 MCG TAB PO SCH (08:58)
[2019-09-25] MEDS: Vitamin THERAPEUTIC TAB PO SCH (08:58)
[2019-09-25] MEDS: Pantoprazole TAB * 40 MG TAB PO SCH (08:58)
[2019-09-25] MEDS: Ziprasidone * 20 MG CAP (generic Geodon) PO SCH ×2 (08:58→20:30)
[2019-09-25] MEDS: Doxazosin TAB* 2 MG PO SCH (08:58)
[2019-09-25] MEDS: Topiramate TAB(*) 100 MG PO SCH (08:59)
[2019-09-25] MEDS: Famotidine TAB* 20 MG PO SCH ×2 (08:59→20:31)
[2019-09-25] MEDS: Clotrimazole 1% CREAM* 45 GM TOPICAL SCH ×2 (08:59→20:37)
[2019-09-25] MEDS: QUEtiapine TAB* 25 MG PO PRN ×3 (09:57→20:34)
[2019-09-25] MEDS: Atorvastatin* 20 MG TAB PO SCH (20:30)
[2019-09-25] MEDS: risperiDONE TAB* 1 MG PO SCH (20:31)
[2019-09-25] MEDS: Zolpidem TAB* 5 MG PO PRN (20:34)
[2019-09-26] MEDS: Levothyroxine TAB* 50 MCG TAB PO SCH (06:32)
[2019-09-26] MEDS: Clotrimazole 1% CREAM* 45 GM TOPICAL SCH ×2 (08:43→20:26)
[2019-09-26] MEDS: Vitamin THERAPEUTIC TAB PO SCH (08:43)
[2019-09-26] MEDS: Doxazosin TAB* 2 MG PO SCH (08:43)
[2019-09-26] MEDS: DULoxetine DR CAP* 30 MG CAP.DR PO SCH (08:44)
[2019-09-26] MEDS: DULoxetine DR CAP* 60 MG CAP.DR PO SCH (08:44)
[2019-09-26] MEDS: Pantoprazole TAB * 40 MG TAB PO SCH (08:44)
[2019-09-26] MEDS: Ziprasidone * 20 MG CAP (generic Geodon) PO SCH ×2 (08:44→17:20)
[2019-09-26] MEDS: Topiramate TAB(*) 100 MG PO SCH (08:45)
[2019-09-26] MEDS: Famotidine TAB* 20 MG PO SCH ×2 (08:45→20:24)
[2019-09-26] MEDS: QUEtiapine TAB* 25 MG PO PRN ×3 (09:15→20:24)
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
[2019-09-26] MEDS: Zolpidem TAB* 5 MG PO PRN (20:23)
[2019-09-26] MEDS: Atorvastatin* 20 MG TAB PO SCH (20:24)
[2019-09-26] MEDS ORDERED: risperiDONE TAB* 3 MG PO SCH (21:00)
[2019-09-27] MEDS: Vitamin THERAPEUTIC TAB PO SCH (08:16)
[2019-09-27] MEDS: Famotidine TAB* 20 MG PO SCH ×2 (08:16→20:19)
[2019-09-27] MEDS: Topiramate TAB(*) 100 MG PO SCH (08:16)
[2019-09-27] MEDS: Pantoprazole TAB * 40 MG TAB PO SCH (08:16)
[2019-09-27] MEDS: DULoxetine DR CAP* 30 MG CAP.DR PO SCH (08:16)
[2019-09-27] MEDS: DULoxetine DR CAP* 60 MG CAP.DR PO SCH (08:16)
[2019-09-27] MEDS: Doxazosin TAB* 2 MG PO SCH (08:17)
[2019-09-27] MEDS: Levothyroxine TAB* 50 MCG TAB PO SCH (08:17)
[2019-09-27] MEDS: Clotrimazole 1% CREAM* 45 GM TOPICAL SCH ×2 (08:19→20:21)
[2019-09-27] MEDS: QUEtiapine TAB* 25 MG PO PRN (16:02)
[2019-09-27] MEDS: Acetaminophen TAB* 325 MG PO PRN (16:45)
[2019-09-27] MEDS: Ziprasidone * 20 MG CAP (generic Geodon) PO SCH (17:23)
[2019-09-27] MEDS: Atorvastatin* 20 MG TAB PO SCH (20:19)
[2019-09-27] MEDS: QUEtiapine TAB* 300 MG PO SCH (20:21)
[2019-09-27] MEDS: Zolpidem TAB* 5 MG PO PRN (20:23)
[2019-09-28] MEDS: Levothyroxine TAB* 50 MCG TAB PO SCH (07:35)
[2019-09-28] MEDS: Doxazosin TAB* 2 MG PO SCH (09:08)
[2019-09-28] MEDS: DULoxetine DR CAP* 30 MG CAP.DR PO SCH (09:08)
[2019-09-28] MEDS: Famotidine TAB* 20 MG PO SCH ×2 (09:08→20:36)
[2019-09-28] MEDS: DULoxetine DR CAP* 60 MG CAP.DR PO SCH (09:08)
[2019-09-28] MEDS: Clotrimazole 1% CREAM* 45 GM TOPICAL SCH ×2 (09:08→20:36)
[2019-09-28] MEDS: Topiramate TAB(*) 100 MG PO SCH (09:09)
[2019-09-28] MEDS: Pantoprazole TAB * 40 MG TAB PO SCH (09:09)
[2019-09-28] MEDS: Vitamin THERAPEUTIC TAB PO SCH (09:09)
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
[2019-09-28] MEDS: QUEtiapine TAB* 25 MG PO PRN (13:54)
[2019-09-28] MEDS: Al Hydrox/Mg Hydrox/Simet LIQ* 30 ML UDC PO PRN (15:04)
--- NOTE | 2019-09-28 16:04 | PN ---
BSU: Group Therapy Note - Service Type Service Type: 75219 Group Psychotherapy - Krzysztof is feeling down and depressed today and came to the group in part to feel more comfortable and to positively contribute. Krzysztof stayed after group and participated further in after-group activity. - Group Participation Patient Participating in Group: Yes Level of Group Participation: Attentive, Participates When Prompte
[2019-09-28] MEDS: Atorvastatin* 20 MG TAB PO SCH (20:36)
[2019-09-28] MEDS: QUEtiapine TAB* 300 MG PO SCH (20:37)
[2019-09-28] MEDS: Zolpidem TAB* 5 MG PO PRN (20:39)
[2019-09-29] MEDS: Levothyroxine TAB* 50 MCG TAB PO SCH (07:16)
[2019-09-29] MEDS: Doxazosin TAB* 2 MG PO SCH (10:26)
[2019-09-29] MEDS: Topiramate TAB(*) 100 MG PO SCH (10:26)
[2019-09-29] MEDS: DULoxetine DR CAP* 30 MG CAP.DR PO SCH (10:26)
[2019-09-29] MEDS: Famotidine TAB* 20 MG PO SCH ×2 (10:26→19:37)
[2019-09-29] MEDS: DULoxetine DR CAP* 60 MG CAP.DR PO SCH (10:26)
[2019-09-29] MEDS: Pantoprazole TAB * 40 MG TAB PO SCH (10:26)
[2019-09-29] MEDS: Vitamin THERAPEUTIC TAB PO SCH (10:26)
[2019-09-29] MEDS: Al Hydrox/Mg Hydrox/Simet LIQ* 30 ML UDC PO PRN ×2 (10:28→15:50)
[2019-09-29] MEDS: Clotrimazole 1% CREAM* 45 GM TOPICAL SCH ×2 (10:41→20:39)
[2019-09-29] MEDS: QUEtiapine TAB* 25 MG PO PRN (16:45)
[2019-09-29] MEDS: Atorvastatin* 20 MG TAB PO SCH (19:37)
[2019-09-29] MEDS: QUEtiapine TAB* 300 MG PO SCH (19:37)
[2019-09-29] MEDS: Zolpidem TAB* 5 MG PO PRN (19:39)
[2019-09-30] MEDS: Levothyroxine TAB* 50 MCG TAB PO SCH (06:26)
[2019-09-30] MEDS: Vitamin THERAPEUTIC TAB PO SCH (09:43)
[2019-09-30] MEDS: Doxazosin TAB* 2 MG PO SCH (09:43)
[2019-09-30] MEDS: DULoxetine DR CAP* 30 MG CAP.DR PO SCH (09:44)
[2019-09-30] MEDS: Pantoprazole TAB * 40 MG TAB PO SCH (09:44)
[2019-09-30] MEDS: DULoxetine DR CAP* 60 MG CAP.DR PO SCH (09:44)
[2019-09-30] MEDS: Topiramate TAB(*) 100 MG PO SCH (09:44)
[2019-09-30] MEDS: Famotidine TAB* 20 MG PO SCH ×2 (09:44→20:25)
[2019-09-30] MEDS: Clotrimazole 1% CREAM* 45 GM TOPICAL SCH ×2 (09:45→21:14)
[2019-09-30] MEDS: Al Hydrox/Mg Hydrox/Simet LIQ* 30 ML UDC PO PRN ×2 (11:02→20:29)
[2019-09-30] MEDS: Ondansetron ODT TAB* 4 MG PO PRN (13:57)
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
[2019-09-30] MEDS: Atorvastatin* 20 MG TAB PO SCH (20:24)
[2019-09-30] MEDS: Zolpidem TAB* 5 MG PO SCH (20:24)
[2019-09-30] MEDS: QUEtiapine TAB* 300 MG PO SCH (20:24)
[2019-10-01] MEDS: Levothyroxine TAB* 50 MCG TAB PO SCH (07:20)
[2019-10-01] MEDS: Acetaminophen TAB* 325 MG PO PRN ×2 (07:20→20:16)
[2019-10-01] MEDS: Clotrimazole 1% CREAM* 45 GM TOPICAL SCH ×2 (08:47→20:34)
[2019-10-01] MEDS: DULoxetine DR CAP* 30 MG CAP.DR PO SCH (08:47)
[2019-10-01] MEDS: Pantoprazole TAB * 40 MG TAB PO SCH (08:47)
[2019-10-01] MEDS: Topiramate TAB(*) 100 MG PO SCH (08:47)
[2019-10-01] MEDS: DULoxetine DR CAP* 60 MG CAP.DR PO SCH (08:47)
[2019-10-01] MEDS: Doxazosin TAB* 2 MG PO SCH (08:47)
[2019-10-01] MEDS: Vitamin THERAPEUTIC TAB PO SCH (08:47)
[2019-10-01] MEDS: Famotidine TAB* 20 MG PO SCH ×2 (08:48→20:17)
[2019-10-01] MEDS: Al Hydrox/Mg Hydrox/Simet LIQ* 30 ML UDC PO PRN (16:22)
[2019-10-01] MEDS: Ondansetron ODT TAB* 4 MG PO PRN (18:46)
[2019-10-01] MEDS: QUEtiapine TAB* 300 MG PO SCH (20:17)
[2019-10-01] MEDS: Zolpidem TAB* 5 MG PO SCH (20:18)
[2019-10-01] MEDS: Atorvastatin* 20 MG TAB PO SCH (20:18)
[2019-10-02] MEDS: Levothyroxine TAB* 50 MCG TAB PO SCH (07:49)
[2019-10-02] MEDS: Acetaminophen TAB* 325 MG PO PRN ×3 (08:19→20:08)
[2019-10-02] MEDS: Famotidine TAB* 20 MG PO SCH ×2 (08:19→20:11)
[2019-10-02] MEDS: DULoxetine DR CAP* 60 MG CAP.DR PO SCH (08:19)
[2019-10-02] MEDS: Pantoprazole TAB * 40 MG TAB PO SCH (08:19)
[2019-10-02] MEDS: DULoxetine DR CAP* 30 MG CAP.DR PO SCH (08:19)
[2019-10-02] MEDS: Topiramate TAB(*) 100 MG PO SCH (08:19)
[2019-10-02] MEDS: Doxazosin TAB* 2 MG PO SCH (08:19)
[2019-10-02] MEDS: Clotrimazole 1% CREAM* 45 GM TOPICAL SCH ×2 (08:20→20:11)
[2019-10-02] MEDS: Vitamin THERAPEUTIC TAB PO SCH (08:20)
[2019-10-02 17:31] LABS: Urine Appearance Cloudy; Urine Bilirubin Negative (Negative); Urine Blood Negative (Negative); Urine Color Yellow; Urine Glucose Negative (Negative); Urine Ketones Negative (Negative); Urine Nitrite Positive (Negative); Urine Protein Negative (Negative); Urine Specific Gravity 1.023 (1.010-1.030); Urine Urobilinogen Negative (Negative)
[2019-10-02 17:46] LABS: Urine Bacteria 1+ (Absent); Urine Red Blood Cell 2+(6-10/hpf) (Absent); Urine Squamous Epithelial Cell Present (Absent); Urine White Blood Cell 3+(>20/hpf) (Absent)
[2019-10-02] MEDS: QUEtiapine TAB* 300 MG PO SCH (20:09)
[2019-10-02] MEDS: Zolpidem TAB* 5 MG PO SCH (20:10)
[2019-10-02] MEDS: Atorvastatin* 20 MG TAB PO SCH (20:10)
[2019-10-02] MEDS: Sulfamethox/Trimethoprim DS 800/160* TAB PO SCH (22:32)
[2019-10-03] MEDS: Levothyroxine TAB* 50 MCG TAB PO SCH (08:18)
[2019-10-03] MEDS: Pantoprazole TAB * 40 MG TAB PO SCH (08:18)
[2019-10-03] MEDS: Famotidine TAB* 20 MG PO SCH ×2 (08:19→20:29)
[2019-10-03] MEDS: Sulfamethox/Trimethoprim DS 800/160* TAB PO SCH ×2 (08:19→20:31)
[2019-10-03] MEDS: DULoxetine DR CAP* 60 MG CAP.DR PO SCH (08:19)
[2019-10-03] MEDS: DULoxetine DR CAP* 30 MG CAP.DR PO SCH (08:19)
[2019-10-03] MEDS: Topiramate TAB(*) 100 MG PO SCH (08:20)
[2019-10-03] MEDS: Vitamin THERAPEUTIC TAB PO SCH (08:20)
[2019-10-03] MEDS: Doxazosin TAB* 2 MG PO SCH (08:20)
[2019-10-03] MEDS: Clotrimazole 1% CREAM* 45 GM TOPICAL SCH ×2 (08:21→20:32)
[2019-10-03] MEDS: Acetaminophen TAB* 325 MG PO PRN ×2 (10:48→15:08)
--- NOTE | 2019-10-03 11:07 | PN ---
BSU: Group Therapy Note - Service Type Service Type: 05305 Group Psychotherapy - Cognitive Behavioral Group Therapy ( CBT):Patient attended CBT programming this morning and presented with flat affect that did not vary with discussion. Although responsive to direct prompts to respond to questions, patient did not engage in spontaneous conversation. Krzysztof tends to fall asleep during groups.
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
[2019-10-03] MEDS: Atorvastatin* 20 MG TAB PO SCH (20:28)
[2019-10-03] MEDS: QUEtiapine TAB* 100 MG PO SCH (20:30)
[2019-10-03] MEDS: Zolpidem TAB* 5 MG PO SCH (20:31)
[2019-10-04] MEDS: DULoxetine DR CAP* 60 MG CAP.DR PO SCH (08:20)
[2019-10-04] MEDS: Famotidine TAB* 20 MG PO SCH ×2 (08:20→20:18)
[2019-10-04] MEDS: DULoxetine DR CAP* 30 MG CAP.DR PO SCH (08:20)
[2019-10-04] MEDS: Doxazosin TAB* 2 MG PO SCH (08:20)
[2019-10-04] MEDS: Levothyroxine TAB* 50 MCG TAB PO SCH (08:20)
[2019-10-04] MEDS: Vitamin THERAPEUTIC TAB PO SCH (08:20)
[2019-10-04] MEDS: Sulfamethox/Trimethoprim DS 800/160* TAB PO SCH ×2 (08:20→20:18)
[2019-10-04] MEDS: Pantoprazole TAB * 40 MG TAB PO SCH (08:20)
[2019-10-04] MEDS: Topiramate TAB(*) 100 MG PO SCH (08:21)
[2019-10-04] MEDS: Clotrimazole 1% CREAM* 45 GM TOPICAL SCH ×2 (08:48→20:21)
--- NOTE | 2019-10-04 11:16 | PN ---
BSU: Group Therapy Note - Service Type Service Type: [id number] Group Psychotherapy - Cognitive Behavioral Group Therapy ( CBT):Patient attended CBT programming this morning and presented with flat affect that did not vary with discussion. Although responsive to direct prompts to respond to questions, patient did not engage in spontaneous conversation.
[2019-10-04] MEDS: Acetaminophen TAB* 325 MG PO PRN ×2 (11:56→20:17)
[2019-10-04] MEDS: QUEtiapine TAB* 100 MG PO SCH (20:17)
[2019-10-04] MEDS: Zolpidem TAB* 5 MG PO SCH (20:17)
[2019-10-04] MEDS: Atorvastatin* 20 MG TAB PO SCH (20:18)
[2019-10-04 20:24] VITALS: BP 132/83
[2019-10-05] MEDS: Vitamin THERAPEUTIC TAB PO SCH (09:18)
[2019-10-05] MEDS: DULoxetine DR CAP* 30 MG CAP.DR PO SCH (09:18)
[2019-10-05] MEDS: DULoxetine DR CAP* 60 MG CAP.DR PO SCH (09:18)
[2019-10-05] MEDS: Levothyroxine TAB* 50 MCG TAB PO SCH (09:18)
[2019-10-05] MEDS: Doxazosin TAB* 2 MG PO SCH (09:18)
[2019-10-05] MEDS: Pantoprazole TAB * 40 MG TAB PO SCH (09:19)
[2019-10-05] MEDS: Sulfamethox/Trimethoprim DS 800/160* TAB PO SCH (09:19)
[2019-10-05] MEDS: Famotidine TAB* 20 MG PO SCH (09:19)
[2019-10-05] MEDS: Topiramate TAB(*) 100 MG PO SCH (09:19)
[2019-10-05] MEDS: Clotrimazole 1% CREAM* 45 GM TOPICAL SCH (09:20)
[2019-10-05] MEDS: Acetaminophen TAB* 325 MG PO PRN (09:33)
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
== END 2019-10-05 12:35 | disposition short-term general hospital (02) | DRG 882 ==
LOC: ED 03:25 → BSU 05:00
PROVIDERS: ADMIT Psychiatry & Neurology Psychiatry; ATTEND Psychiatry & Neurology Psychiatry
PROC: GZHZZZZ Group Psychotherapy (ICD-10-PCS; principal; 2019-09-16)
DX: F43.12 Post-traumatic stress disorder, chronic (principal); F33.9 Major depressive disorder, recurrent, unspecified; R45.851 Suicidal ideations; N39.0 Urinary tract infection, site not specified; F60.9 Personality disorder, unspecified; G40.909 Epilepsy, unspecified, not intractable, without status epilepticus; J45.909 Unspecified asthma, uncomplicated; E03.9 Hypothyroidism, unspecified; K21.9 Gastro-esophageal reflux disease without esophagitis; E78.00 Pure hypercholesterolemia, unspecified; D86.9 Sarcoidosis, unspecified; K58.9 Irritable bowel syndrome, unspecified; F41.0 Panic disorder [episodic paroxysmal anxiety]; F17.210 Nicotine dependence, cigarettes, uncomplicated; R62.50 Unspecified lack of expected normal physiological development in childhood; Z91.5 Personal history of self-harm; Z91.410 Personal history of adult physical and sexual abuse; Z91.011 Allergy to milk products; Z87.890 Personal history of sex reassignment; Z79.899 Other long term (current) drug therapy
CPT/HCPCS: 36415; 80061; 80320; 80329; 81003; 81015; 83036; 83721; 87077; 87086; 87186; 90853; 99222; 99231; 99232; 99233; 99238; 99285; A9270-GY; G0480

== ENCOUNTER 2020-12-20 10:53 | Observation (INO) ==
[2020-12-20 11:32] LABS: ABS Basophils 0.1 10^3/ul (0-0.2); ABS Eosinophils 0.1 10^3/ul (0-0.6); ABS Lymphocytes 0.9 10^3/ul (1.0-4.8); ABS Monocytes 0.5 10^3/ul (0-0.8); ABS Neutrophils 4.4 10^3/ul (1.5-7.7); Eosinophil % 1.9 %; Hematocrit 46 % (42-52); Hemoglobin 15.6 g/dL (14.0-18.0); Lymphocyte % 15.4 %; Mean Corpuscular HGB Conc 34 g/dL (31-36); Mean Corpuscular Hemoglobin 32 pg (27-31); Mean Corpuscular Volume 95 fL (80-94); Platelet Count 283 10^3/uL (150-450); Red Blood Count 4.83 10^6 /uL (4.18-5.48); Red Cell Distribution Width 13 % (10-15); White Blood Count 6.1 10^3/uL (3.5-10.8)
[2020-12-20 12:09] LABS: ALT 23 U/L (7-52); Albumin 4.7 g/dL (3.2-5.2); Albumin/Globulin Ratio 1.8 (1-3); Alkaline Phosphatase 56 U/L (34-104); Blood Urea Nitrogen 27 mg/dL (6-24); CO2 Carbon Dioxide 23 mmol/L (22-32); Calcium 9.4 mg/dL (8.6-10.3); Chloride 106 mmol/L (101-111); EGFR African American 81.8 (>60); EGFR Non-African American 67.6 (>60); Globulin 2.6 g/dL (2-4); Glucose 105 mg/dL (70-100); Sodium 137 mmol/L (135-145); Total Protein 7.3 g/dL (6.4-8.9)
[2020-12-20 12:50] LABS: Anion Gap 8 mmol/L (2-11)
[2020-12-20 13:38] LABS: TSH Ultra Thyroid Stim Horm 2.81 mcIU/mL (0.34-5.60)
[2020-12-20 13:59] LABS: Troponin I 0.01 ng/mL (<0.03)
[2020-12-20 14:28] LABS: Urine Appearance Cloudy; Urine Bilirubin Negative (Negative); Urine Blood 3+ (Negative); Urine Glucose Negative (Negative); Urine Ketones Negative (Negative); Urine Nitrite Negative (Negative); Urine Protein 2+(100 mg/dL) (Negative); Urine Specific Gravity 1.011 (1.002-1.030); Urine Urobilinogen Negative (Negative)
[2020-12-20 14:30] LABS: Activated Partial Thrombo Time 45.7 seconds (26.0-38.0); INR 1.07 (0.82-1.09)
[2020-12-20 14:31] LABS: Urine Bacteria Absent (Absent); Urine Red Blood Cell 3+(>10/hpf) (Absent); Urine Squamous Epithelial Cell Present (Absent); Urine White Blood Cell Trace(0-5/hpf) (Absent)
[2020-12-20 14:54] LABS: Urine Color Amber
[2020-12-20] MEDS ORDERED: Ondansetron 4 mg VIAL 2 MG/ML 2 ml VIAL IV PRN (15:44)
[2020-12-20] MEDS ORDERED: Polyethylene Glycol 3350 17 GM PACKET PO PRN (15:49)
[2020-12-20] MEDS ORDERED: Ampicillin ADVAN 1 GM in NS 0.9% 50 ML 50 ML IVPB SCH (16:00)
[2020-12-20] MEDS ORDERED: Iohexol 300 (CONTRAST) 10 ML SDV IV ONE (16:01)
[2020-12-20] MEDS: DOXYcycline 100 MG in NS 0.9% 250 ml 250 ML IVPB SCH (17:42)
[2020-12-20] MEDS: Senna TAB 8.6 mg TAB PO SCH (19:44)
[2020-12-20 20:32] LABS: T4, Total 8.85 mcg/dL (6.09-12.23)
[2020-12-20] MEDS: Gemfibrozil 600 mg PO SCH (22:11)
[2020-12-21] MEDS: DOXYcycline 100 MG in NS 0.9% 250 ml 250 ML IVPB SCH (05:36)
[2020-12-21 06:58] LABS: ABS Basophils 0.1 10^3/ul (0-0.2); ABS Eosinophils 0.3 10^3/ul (0-0.6); ABS Lymphocytes 1.2 10^3/ul (1.0-4.8); ABS Monocytes 0.7 10^3/ul (0-0.8); Eosinophil % 4.8 %; Hematocrit 42 % (42-52); Hemoglobin 14.6 g/dL (14.0-18.0); Lymphocyte % 19.5 %; Mean Corpuscular HGB Conc 35 g/dL (31-36); Mean Corpuscular Hemoglobin 33 pg (27-31); Mean Corpuscular Volume 95 fL (80-94); Mean Platelet Volume 8.1 fL (7.4-10.4); Platelet Count 248 10^3/uL (150-450); Red Blood Count 4.46 10^6 /uL (4.18-5.48); Red Cell Distribution Width 13 % (10-15); White Blood Count 6.2 10^3/uL (3.5-10.8)
[2020-12-21 07:16] LABS: Calcium 8.8 mg/dL (8.6-10.3); EGFR African American 76.2 (>60); HDL Cholesterol 20.9 mg/dL; Potassium 4.2 mmol/L (3.5-5.0)
[2020-12-21] MEDS: Senna TAB 8.6 mg TAB PO SCH (08:29)
[2020-12-21 08:34] VITALS: BP 135/68
[2020-12-21] MEDS: Gemfibrozil 600 mg PO SCH (08:41)
[2020-12-21] MEDS ORDERED: DULoxetine DR 30 mg CAP PO SCH (09:00)
[2020-12-21] MEDS ORDERED: LANSOPRAZOLE 15 MG PO SCH (09:00)
[2020-12-21] MEDS ORDERED: DULoxetine DR 60 mg CAP PO SCH (09:00)
== END 2020-12-21 13:34 | disposition home or self-care (01) ==
LOC: MEDTELE 10:53 → ED 10:53
PROVIDERS: ADMIT Internal Medicine; ATTEND Internal Medicine

== ENCOUNTER 2021-04-04 18:55 | Inpatient (IN) ==
[2021-04-04 23:11] LABS: ABS Basophils 0.1 10^3/ul (0-0.2); ABS Eosinophils 0.2 10^3/ul (0-0.6); ABS Lymphocytes 1.1 10^3/ul (1.0-4.8); ABS Monocytes 0.4 10^3/ul (0-0.8); ABS Neutrophils 4.3 10^3/ul (1.5-7.7); Eosinophil % 3.1 %; Hematocrit 42 % (42-52); Hemoglobin 14.5 g/dL (14.0-18.0); Lymphocyte % 18.3 %; Mean Corpuscular HGB Conc 34 g/dL (31-36); Mean Corpuscular Hemoglobin 32 pg (27-31); Mean Corpuscular Volume 94 fL (80-94); Mean Platelet Volume 8.2 fL (7.4-10.4); Platelet Count 256 10^3/uL (150-450); Red Cell Distribution Width 13 % (10-15); White Blood Count 6.1 10^3/uL (3.5-10.8)
[2021-04-04 23:29] LABS: ALT 27 U/L (7-52); AST 22 U/L (13-39); Albumin 4.3 g/dL (3.2-5.2); Alkaline Phosphatase 49 U/L (35-149); Anion Gap 5 mmol/L (2-11); Blood Urea Nitrogen 26 mg/dL (6-24); CO2 Carbon Dioxide 27 mmol/L (22-32); Calcium 9.3 mg/dL (8.6-10.3); Chloride 107 mmol/L (101-111); EGFR African American 74.1 (>60); EGFR Non-African American 61.2 (>60); Globulin 2.2 g/dL (2-4); Glucose 107 mg/dL (70-100); Potassium 4.1 mmol/L (3.5-5.0); Sodium 139 mmol/L (135-145); Total Protein 6.5 g/dL (6.4-8.9)
[2021-04-04 23:32] LABS: Urine Benzodiazepine Screen None Detected (None Detect); Urine Cannabinoids Screen None Detected (None Detect); Urine Opiates Screen None Detected (None Detect)
[2021-04-04 23:33] LABS: Urine Appearance Cloudy; Urine Bilirubin Negative (Negative); Urine Blood Negative (Negative); Urine Color Yellow; Urine Glucose Negative (Negative); Urine Ketones Negative (Negative); Urine Nitrite Positive (Negative); Urine Protein 1+(30 mg/dL) (Negative); Urine Specific Gravity 1.023 (1.002-1.030); Urine Urobilinogen Negative (Negative)
[2021-04-04 23:36] LABS: Acetaminophen < 15 mcg/mL; Alcohol, S < 13 mg/dL (<13); Salicylate < 2.50 mg/dL (<30)
[2021-04-04 23:42] LABS: Urine Bacteria Absent (Absent); Urine Red Blood Cell Absent (Absent); Urine Squamous Epithelial Cell Present (Absent); Urine White Blood Cell 3+(>20/hpf) (Absent)
[2021-04-05] MEDS ORDERED: Polyethylene Glycol 3350 17 GM PACKET PO PRN (06:40)
[2021-04-05] MEDS: Vitamin THERAPEUTIC TAB PO SCH (12:33)
[2021-04-05] MEDS: DULoxetine DR 30 mg CAP PO SCH (14:12)
[2021-04-05] MEDS: Senna TAB 8.6 mg TAB PO SCH ×2 (14:15→21:28)
[2021-04-05] MEDS: DULoxetine DR 60 mg CAP PO SCH (14:15)
[2021-04-05] MEDS: Gemfibrozil 600 mg PO SCH ×2 (14:15→21:27)
[2021-04-05] MEDS: Al Hydrox/Mg Hydrox/Simet LIQ 30 ML UDC PO PRN (19:07)
[2021-04-05] MEDS: PAIN RELIEVING RUB (MENTHOL/SALICYLATE) 1 APPLIC TUBE TOPICAL PRN (21:26)
[2021-04-06] MEDS: DULoxetine DR 60 mg CAP PO SCH (08:15)
[2021-04-06] MEDS: Vitamin THERAPEUTIC TAB PO SCH (08:15)
[2021-04-06] MEDS: DULoxetine DR 30 mg CAP PO SCH (08:16)
[2021-04-06] MEDS: Gemfibrozil 600 mg PO SCH ×2 (08:16→20:02)
[2021-04-06] MEDS: Senna TAB 8.6 mg TAB PO SCH ×2 (08:17→20:02)
[2021-04-06] MEDS: PAIN RELIEVING RUB (MENTHOL/SALICYLATE) 1 APPLIC TUBE TOPICAL PRN (08:18)
[2021-04-07] MEDS: Senna TAB 8.6 mg TAB PO SCH ×2 (08:16→20:45)
[2021-04-07] MEDS: Vitamin THERAPEUTIC TAB PO SCH (08:16)
[2021-04-07] MEDS: DULoxetine DR 60 mg CAP PO SCH (08:16)
[2021-04-07] MEDS: DULoxetine DR 30 mg CAP PO SCH (08:16)
[2021-04-07] MEDS: Gemfibrozil 600 mg PO SCH ×2 (08:17→20:45)
[2021-04-07 08:38] LABS: HDL Cholesterol 19.7 mg/dL
[2021-04-07] MEDS: Al Hydrox/Mg Hydrox/Simet LIQ 30 ML UDC PO PRN (16:16)
[2021-04-08] MEDS: Senna TAB 8.6 mg TAB PO SCH ×2 (08:41→20:11)
[2021-04-08] MEDS: DULoxetine DR 60 mg CAP PO SCH (08:41)
[2021-04-08] MEDS: DULoxetine DR 30 mg CAP PO SCH (08:41)
[2021-04-08] MEDS: Vitamin THERAPEUTIC TAB PO SCH (08:42)
[2021-04-08] MEDS: Gemfibrozil 600 mg PO SCH ×2 (08:42→20:12)
[2021-04-08] MEDS: Al Hydrox/Mg Hydrox/Simet LIQ 30 ML UDC PO PRN (09:59)
[2021-04-09 08:21] VITALS: BP 127/70
[2021-04-09] MEDS: Senna TAB 8.6 mg TAB PO SCH (08:26)
[2021-04-09] MEDS: Vitamin THERAPEUTIC TAB PO SCH (08:27)
[2021-04-09] MEDS: DULoxetine DR 60 mg CAP PO SCH (08:27)
[2021-04-09] MEDS: DULoxetine DR 30 mg CAP PO SCH (08:27)
[2021-04-09] MEDS: Gemfibrozil 600 mg PO SCH (08:27)
[2021-04-09] MEDS: PAIN RELIEVING RUB (MENTHOL/SALICYLATE) 1 APPLIC TUBE TOPICAL PRN (08:30)
== END 2021-04-09 12:30 | disposition home or self-care (01) | DRG 881 ==
LOC: ED 18:55 → BSU 04-05 05:15
PROVIDERS: ADMIT Psychiatry & Neurology Psychiatry; ATTEND Psychiatry & Neurology Psychiatry

== ENCOUNTER 2021-07-01 14:02 | Inpatient (IN) ==
[2021-07-01 15:56] LABS: ABS Basophils 0.1 10^3/ul (0-0.2); ABS Eosinophils 0.2 10^3/ul (0-0.6); ABS Lymphocytes 0.9 10^3/ul (1.0-4.8); ABS Monocytes 0.5 10^3/ul (0-0.8); ABS Neutrophils 4.3 10^3/ul (1.5-7.7); Eosinophil % 2.6 %; Hematocrit 42 % (42-52); Hemoglobin 14.3 g/dL (14.0-18.0); Lymphocyte % 15.1 %; Mean Corpuscular HGB Conc 34 g/dL (31-36); Mean Corpuscular Hemoglobin 32 pg (27-31); Mean Corpuscular Volume 95 fL (80-94); Mean Platelet Volume 8.2 fL (7.4-10.4); Platelet Count 250 10^3/uL (150-450); Red Blood Count 4.45 10^6 /uL (4.18-5.48); Red Cell Distribution Width 13 % (10-15); White Blood Count 5.9 10^3/uL (3.5-10.8)
[2021-07-01 16:13] LABS: ALT 23 U/L (7-52); AST 19 U/L (13-39); Albumin 4.5 g/dL (3.2-5.2); Alkaline Phosphatase 57 U/L (35-149); Anion Gap 7 mmol/L (2-11); Blood Urea Nitrogen 35 mg/dL (6-24); CO2 Carbon Dioxide 24 mmol/L (22-32); Calcium 9.1 mg/dL (8.6-10.3); Chloride 108 mmol/L (101-111); Globulin 2.2 g/dL (2-4); Glucose 114 mg/dL (70-100); Potassium 3.9 mmol/L (3.5-5.0); Sodium 139 mmol/L (135-145); Total Protein 6.7 g/dL (6.4-8.9)
[2021-07-01 16:54] LABS: TSH Ultra Thyroid Stim Horm 1.68 mcIU/mL (0.34-5.60)
[2021-07-01] MEDS ORDERED: Al Hydrox/Mg Hydrox/Simet LIQ 30 ML UDC PO PRN (16:59)
[2021-07-01 17:52] LABS: Acetaminophen < 15 mcg/mL; Alcohol, S < 13 mg/dL (<13); Salicylate < 2.50 mg/dL (<30)
[2021-07-01 18:48] LABS: Rapid COVID-19 Molecular Undetected (Undetected)
[2021-07-01] MEDS: Gemfibrozil 600 mg PO SCH (21:54)
[2021-07-01] MEDS: Senna TAB 8.6 mg TAB PO SCH (21:55)
[2021-07-02] MEDS: DULoxetine DR 60 mg CAP PO SCH (08:34)
[2021-07-02] MEDS: Senna TAB 8.6 mg TAB PO SCH ×2 (08:34→22:06)
[2021-07-02] MEDS: Multivitamins/Minerals TAB PO SCH (08:34)
[2021-07-02] MEDS: DULoxetine DR 30 mg CAP PO SCH (08:34)
[2021-07-02] MEDS: Gemfibrozil 600 mg PO SCH ×2 (08:36→22:05)
[2021-07-02] MEDS ORDERED: LANSOPRAZOLE 15 MG PO SCH (09:00)
[2021-07-03 07:52] LABS: HDL Cholesterol 19.9 mg/dL
[2021-07-03] MEDS: Multivitamins/Minerals TAB PO SCH (08:24)
[2021-07-03] MEDS: DULoxetine DR 60 mg CAP PO SCH (08:24)
[2021-07-03] MEDS: DULoxetine DR 30 mg CAP PO SCH (08:24)
[2021-07-03] MEDS: Senna TAB 8.6 mg TAB PO SCH (08:24)
[2021-07-03] MEDS: Gemfibrozil 600 mg PO SCH (08:25)
[2021-07-03 09:58] VITALS: BP 106/70
== END 2021-07-03 15:15 | disposition home or self-care (01) | DRG 882 ==
LOC: ED 14:02 → EDHOLD 18:17 → BSU 20:18
PROVIDERS: ADMIT Psychiatry & Neurology Psychiatry; ATTEND Psychiatry & Neurology Psychiatry

== ENCOUNTER 2021-08-27 12:55 | Inpatient (IN) ==
[2021-08-27 14:18] LABS: Urine Appearance Cloudy; Urine Bilirubin Negative (Negative); Urine Blood Negative (Negative); Urine Color Yellow; Urine Glucose Negative (Negative); Urine Ketones Negative (Negative); Urine Nitrite Positive (Negative); Urine Protein 1+(30 mg/dL) (Negative); Urine Specific Gravity 1.023 (1.002-1.030); Urine Urobilinogen Negative (Negative)
[2021-08-27 14:22] LABS: Urine Bacteria 3+ (Absent); Urine Red Blood Cell Trace(0-2/hpf) (Absent); Urine Squamous Epithelial Cell Present (Absent); Urine White Blood Cell 3+(>20/hpf) (Absent)
[2021-08-27 14:35] LABS: Urine Benzodiazepine Screen None Detected (None Detect); Urine Cannabinoids Screen None Detected (None Detect); Urine Opiates Screen None Detected (None Detect)
[2021-08-27 15:59] LABS: ABS Basophils 0.1 10^3/ul (0-0.2); ABS Eosinophils 0.3 10^3/ul (0-0.6); ABS Monocytes 0.3 10^3/ul (0-0.8); Eosinophil % 5.5 %; Hematocrit 44 % (42-52); Hemoglobin 15.3 g/dL (14.0-18.0); Lymphocyte % 21.1 %; Mean Corpuscular HGB Conc 35 g/dL (31-36); Mean Corpuscular Hemoglobin 33 pg (27-31); Mean Corpuscular Volume 95 fL (80-94); Mean Platelet Volume 8.1 fL (7.4-10.4); Nucleated Red Blood Cells % 0.1; Platelet Count 269 10^3/uL (150-450); Red Blood Count 4.64 10^6 /uL (4.18-5.48); Red Cell Distribution Width 13 % (10-15); White Blood Count 4.6 10^3/uL (3.5-10.8)
[2021-08-27 16:16] LABS: ALT 21 U/L (7-52); AST 16 U/L (13-39); Albumin 4.7 g/dL (3.2-5.2); Albumin/Globulin Ratio 1.8 (1-3); Alkaline Phosphatase 57 U/L (35-149); Anion Gap 8 mmol/L (2-11); Blood Urea Nitrogen 29 mg/dL (6-24); CO2 Carbon Dioxide 21 mmol/L (22-32); Calcium 9.4 mg/dL (8.6-10.3); Chloride 109 mmol/L (101-111); Globulin 2.6 g/dL (2-4); Glucose 134 mg/dL (70-100); Potassium 3.9 mmol/L (3.5-5.0); Sodium 138 mmol/L (135-145); Total Protein 7.3 g/dL (6.4-8.9); eGFR CKD-EPI 69.1 (>60)
[2021-08-27 16:50] LABS: TSH Ultra Thyroid Stim Horm 1.25 mcIU/mL (0.34-5.60)
[2021-08-27 17:01] LABS: Acetaminophen < 15 mcg/mL; Alcohol, S < 13 mg/dL (<13); Salicylate < 2.50 mg/dL (<30)
[2021-08-27] MEDS: Gemfibrozil 600 mg PO SCH (20:16)
[2021-08-27] MEDS: Senna TAB 8.6 mg TAB PO SCH (20:18)
[2021-08-28 07:52] LABS: HDL Cholesterol 19.5 mg/dL
[2021-08-28] MEDS: Gemfibrozil 600 mg PO SCH ×2 (08:21→20:51)
[2021-08-28] MEDS: Multivitamins/Minerals TAB PO SCH (08:21)
[2021-08-28] MEDS: DULoxetine DR 60 mg CAP PO SCH (08:21)
[2021-08-28] MEDS: Senna TAB 8.6 mg TAB PO SCH ×2 (08:22→20:50)
[2021-08-28] MEDS: DULoxetine DR 30 mg CAP PO SCH (08:22)
[2021-08-28] MEDS: Polyethylene Glycol 3350 17 GM PACKET PO SCH (08:22)
[2021-08-28] MEDS ORDERED: LANSOPRAZOLE 15 MG PO SCH (09:00)
[2021-08-28 22:02] LABS: Urine Appearance Cloudy; Urine Bilirubin Negative (Negative); Urine Blood Negative (Negative); Urine Color Yellow; Urine Glucose Negative (Negative); Urine Ketones Negative (Negative); Urine Nitrite Negative (Negative); Urine Protein 1+(30 mg/dL) (Negative); Urine Urobilinogen Negative (Negative)
[2021-08-28 22:05] LABS: Urine Bacteria 1+ (Absent); Urine Red Blood Cell 2+(6-10/hpf) (Absent); Urine White Blood Cell 3+(>20/hpf) (Absent)
[2021-08-29] MEDS: DULoxetine DR 60 mg CAP PO SCH (08:30)
[2021-08-29] MEDS: DULoxetine DR 30 mg CAP PO SCH (08:30)
[2021-08-29] MEDS: Gemfibrozil 600 mg PO SCH ×2 (08:31→20:33)
[2021-08-29] MEDS: Multivitamins/Minerals TAB PO SCH (08:32)
[2021-08-29] MEDS: Senna TAB 8.6 mg TAB PO SCH ×2 (08:33→20:32)
[2021-08-29] MEDS: Polyethylene Glycol 3350 17 GM PACKET PO SCH (08:33)
[2021-08-29] MEDS: Al Hydrox/Mg Hydrox/Simet LIQ 30 ML UDC PO PRN (20:11)
[2021-08-30] MEDS: Gemfibrozil 600 mg PO SCH ×2 (09:38→19:59)
[2021-08-30] MEDS: DULoxetine DR 60 mg CAP PO SCH (09:39)
[2021-08-30] MEDS: Multivitamins/Minerals TAB PO SCH (09:39)
[2021-08-30] MEDS: DULoxetine DR 30 mg CAP PO SCH (09:39)
[2021-08-30] MEDS: Polyethylene Glycol 3350 17 GM PACKET PO SCH (09:40)
[2021-08-30] MEDS: Senna TAB 8.6 mg TAB PO SCH ×2 (09:40→20:00)
[2021-08-30] MEDS: Al Hydrox/Mg Hydrox/Simet LIQ 30 ML UDC PO PRN (14:54)
[2021-08-31] MEDS: Multivitamins/Minerals TAB PO SCH (09:35)
[2021-08-31] MEDS: Gemfibrozil 600 mg PO SCH ×2 (09:35→22:04)
[2021-08-31] MEDS: DULoxetine DR 60 mg CAP PO SCH (09:36)
[2021-08-31] MEDS: DULoxetine DR 30 mg CAP PO SCH (09:36)
[2021-08-31] MEDS: Senna TAB 8.6 mg TAB PO SCH ×2 (09:40→22:08)
[2021-08-31] MEDS: Polyethylene Glycol 3350 17 GM PACKET PO SCH (09:40)
[2021-09-01] MEDS: Al Hydrox/Mg Hydrox/Simet LIQ 30 ML UDC PO PRN (01:12)
[2021-09-01] MEDS: DULoxetine DR 30 mg CAP PO SCH (08:28)
[2021-09-01] MEDS: DULoxetine DR 60 mg CAP PO SCH (08:29)
[2021-09-01] MEDS: Multivitamins/Minerals TAB PO SCH (08:30)
[2021-09-01] MEDS: Senna TAB 8.6 mg TAB PO SCH ×2 (09:23→20:58)
[2021-09-01] MEDS: Polyethylene Glycol 3350 17 GM PACKET PO SCH (09:24)
[2021-09-01] MEDS: Gemfibrozil 600 mg PO SCH ×2 (09:24→20:56)
[2021-09-02 08:23] VITALS: BP 118/68
[2021-09-02] MEDS: Multivitamins/Minerals TAB PO SCH (08:34)
[2021-09-02] MEDS: Senna TAB 8.6 mg TAB PO SCH (08:36)
[2021-09-02] MEDS: Gemfibrozil 600 mg PO SCH (08:36)
[2021-09-02] MEDS: DULoxetine DR 60 mg CAP PO SCH (08:36)
[2021-09-02] MEDS: Polyethylene Glycol 3350 17 GM PACKET PO SCH (08:37)
[2021-09-02] MEDS: DULoxetine DR 30 mg CAP PO SCH (08:37)
[2021-09-02] MEDS: Al Hydrox/Mg Hydrox/Simet LIQ 30 ML UDC PO PRN (09:51)
[2021-09-02] MEDS ORDERED: Gemfibrozil 600 mg PO ONE (12:12)
[2021-09-02] MEDS ORDERED: Senna TAB 8.6 mg TAB PO ONE (12:13)
== END 2021-09-02 12:57 | disposition home or self-care (01) | DRG 881 ==
LOC: ED 12:55 → BSU 18:35
PROVIDERS: ADMIT Psychiatry & Neurology Psychiatry; ATTEND Psychiatry & Neurology Psychiatry

== ENCOUNTER 2023-01-19 03:17 | Inpatient (IN) ==
[2023-01-19 04:41] LABS: ABS Basophils 0.1 10^3/uL (0.0-0.1); ABS Eosinophils 0.2 10^3/uL (0.0-0.5); ABS Lymphocytes 1.2 10^3/uL (1.0-4.8); ABS Monocytes 1.1 10^3/uL (0.0-1.1); ABS Neutrophils 10.9 10^3/uL (1.5-7.6); Eosinophil % 1.8 %; Hematocrit 39.3 % (38-53); Hemoglobin 13.2 g/dL (13.2-16.3); Lymphocyte % 8.7 %; Mean Corpuscular Hemoglobin 31.3 pg (27-33); Mean Corpuscular Hgb Conc 33.6 g/dL (31-36); Mean Corpuscular Volume 93.2 fL (80-97); Mean Platelet Volume 7.9 fL (7.5-11.2); Platelet Count 267 10^3/uL (150-450); Red Blood Count 4.22 10^6/uL (4.06-5.63); Red Cell Distribution Width 13.8 % (12-17); White Blood Count 13.5 10^3/uL (3.6-10.2)
[2023-01-19 04:57] LABS: ALT 18 U/L (7-52); AST 14 U/L (13-39); Albumin 4.3 g/dL (3.2-5.2); Albumin/Globulin Ratio 1.7 (1-3); Alkaline Phosphatase 90 U/L (35-149); Anion Gap 6 mmol/L (2-16); Blood Urea Nitrogen 27 mg/dL (6-24); CO2 Carbon Dioxide 24 mmol/L (22-32); Calcium 9.5 mg/dL (8.6-10.3); Chloride 106 mmol/L (101-111); Creatinine, Serum 1.27 mg/dL (0.67-1.17); Globulin 2.6 g/dL (2-4); Glucose 122 mg/dL (70-100); Potassium 4.4 mmol/L (3.5-5.0); Sodium 136 mmol/L (135-145); Total Protein 6.9 g/dL (6.4-8.9); eGFR CKD-EPI 65.1 (>60)
[2023-01-19 06:03] LABS: Acetaminophen < 15 mcg/mL; Alcohol, S < 13 mg/dL (<13); Salicylate < 2.50 mg/dL (<30)
[2023-01-19 06:16] LABS: TSH Ultra Thyroid Stim Horm 2.04 mcIU/mL (0.34-5.60)
[2023-01-19 06:32] LABS: Urine Appearance Cloudy; Urine Bilirubin Negative (Negative); Urine Blood Negative (Negative); Urine Color Yellow; Urine Glucose Negative (Negative); Urine Ketones Negative (Negative); Urine Nitrite Negative (Negative); Urine Protein Negative (Negative); Urine Specific Gravity 1.015 (1.002-1.030); Urine Urobilinogen Negative (Negative)
[2023-01-19 06:36] LABS: Urine Bacteria Absent (Absent); Urine Red Blood Cell Absent (Absent); Urine Squamous Epithelial Cell Present (Absent); Urine White Blood Cell 3+(>20/hpf) (Absent); Urine Yeast Present (Absent)
[2023-01-19 07:07] LABS: Urine Benzodiazepine Screen None Detected (None Detect); Urine Cannabinoids Screen None Detected (None Detect); Urine Opiates Screen None Detected (None Detect)
[2023-01-19] MEDS: Al Hydrox/Mg Hydrox/Simet LIQ 30 ML UDC PO PRN (14:22)
[2023-01-19] MEDS: Gemfibrozil 600 mg PO SCH (16:37)
[2023-01-19] MEDS: Mometasone/Formoter 100/5 MDI INH SCH (18:29)
[2023-01-19] MEDS: Sulfamethox/Trimethoprim DS TAB 800/160 mg PO SCH (20:09)
[2023-01-20] MEDS: Al Hydrox/Mg Hydrox/Simet LIQ 30 ML UDC PO PRN (06:01)
[2023-01-20 08:12] LABS: HDL Cholesterol 21.4 mg/dL
[2023-01-20] MEDS: Mometasone/Formoter 100/5 MDI INH SCH ×2 (08:30→20:46)
[2023-01-20] MEDS: Gemfibrozil 600 mg PO SCH ×2 (08:31→16:36)
[2023-01-20] MEDS: Multivitamins/Minerals TAB PO SCH (08:34)
[2023-01-20] MEDS: DULoxetine DR 60 mg CAP PO SCH (08:34)
[2023-01-20] MEDS: Sulfamethox/Trimethoprim DS TAB 800/160 mg PO SCH ×2 (08:34→20:49)
[2023-01-20] MEDS: Albuterol HFA INHALER 8 gm MDI INH PRN (14:01)
[2023-01-20] MEDS ORDERED: PAIN RELIEVING RUB (MENTHOL/SALICYLATE) 1 APPLIC TUBE TOPICAL PRN (14:47)
[2023-01-21] MEDS: Albuterol HFA INHALER 8 gm MDI INH PRN ×5 (00:57→21:35)
[2023-01-21] MEDS: Gemfibrozil 600 mg PO SCH ×2 (07:15→16:17)
[2023-01-21] MEDS: Mometasone/Formoter 100/5 MDI INH SCH ×2 (07:15→19:07)
[2023-01-21] MEDS: Multivitamins/Minerals TAB PO SCH (08:41)
[2023-01-21] MEDS: DULoxetine DR 60 mg CAP PO SCH (08:41)
[2023-01-21] MEDS: Sulfamethox/Trimethoprim DS TAB 800/160 mg PO SCH ×2 (08:41→20:01)
[2023-01-22] MEDS: Albuterol HFA INHALER 8 gm MDI INH PRN ×2 (01:08→14:19)
[2023-01-22] MEDS: Mometasone/Formoter 100/5 MDI INH SCH ×2 (08:42→20:44)
[2023-01-22] MEDS: Multivitamins/Minerals TAB PO SCH (08:44)
[2023-01-22] MEDS: Sulfamethox/Trimethoprim DS TAB 800/160 mg PO SCH ×2 (08:45→20:42)
[2023-01-22] MEDS: Gemfibrozil 600 mg PO SCH ×2 (08:45→17:08)
[2023-01-22] MEDS: DULoxetine DR 60 mg CAP PO SCH (08:45)
[2023-01-23] MEDS: Albuterol HFA INHALER 8 gm MDI INH PRN (06:35)
[2023-01-23] MEDS: Mometasone/Formoter 100/5 MDI INH SCH (07:30)
[2023-01-23] MEDS: DULoxetine DR 60 mg CAP PO SCH (07:32)
[2023-01-23] MEDS: Multivitamins/Minerals TAB PO SCH (07:33)
[2023-01-23] MEDS: Gemfibrozil 600 mg PO SCH (07:33)
[2023-01-23] MEDS: Sulfamethox/Trimethoprim DS TAB 800/160 mg PO SCH (07:33)
[2023-01-23 08:01] VITALS: BP 129/74
== END 2023-01-23 11:30 | disposition home or self-care (01) | DRG 882 ==
LOC: ED 03:17 → EDHOLD 10:38 → BSU 12:08
PROVIDERS: ADMIT Psychiatry & Neurology Psychiatry; ATTEND Student in an Organized Health Care Education/Training Program

== ENCOUNTER 2023-12-18 16:48 | Inpatient (IN) ==
[2023-12-18 17:41] LABS: Hematocrit 37.9 % (38-53); Hemoglobin 12.8 g/dL (13.2-16.3); Mean Corpuscular Hemoglobin 31.7 pg (27-33); Mean Corpuscular Hgb Conc 33.7 g/dL (31-36); Mean Corpuscular Volume 93.8 fL (80-97); Mean Platelet Volume 7.6 fL (7.5-11.2); Platelet Count 239 10^3/uL (150-450); Red Blood Count 4.04 10^6/uL (4.06-5.63); Red Cell Distribution Width 14.4 % (12-17); White Blood Count 5.8 10^3/uL (3.6-10.2)
[2023-12-18 18:14] LABS: ABS Eosinophils 0.1 10^3/uL (0.0-0.5); ABS Lymphocytes 0.9 10^3/uL (1.0-4.8); ABS Monocytes 0.7 10^3/uL (0.0-1.1); ABS Nucleated RBC 0.01 10^3/ul; Eosinophil % 2.5 %; Lymphocyte % 16.2 %; Nucleated Red Blood Cells % 0.2 %/100WBC (0.0-0.8)
[2023-12-18 18:30] LABS: Albumin/Globulin Ratio 2.1 (1-3); C Reactive Protein 24.65 mg/L (<8.01); Calcium 9.2 mg/dL (8.6-10.3); Creatinine, Serum 1.33 mg/dL (0.67-1.17); Globulin 1.9 g/dL (2-4); Potassium 4.5 mmol/L (3.5-5.0); Total Bilirubin 0.2 mg/dL (0.2-1.0); Total Protein 5.9 g/dL (6.4-8.9); eGFR CKD-EPI 61.2 (>60)
[2023-12-18 19:04] LABS: Urine Appearance Turbid; Urine Bilirubin Negative (Negative); Urine Blood Negative (Negative); Urine Color Light-Yellow; Urine Glucose Negative (Negative); Urine Ketones Negative (Negative); Urine Nitrite Negative (Negative); Urine Protein Negative (Negative); Urine Specific Gravity 1.013 (1.002-1.030); Urine Urobilinogen Negative (Negative)
[2023-12-18 19:08] LABS: Urine Bacteria 1+ /HPF (Absent); Urine Red Blood Cell 1+(3-5/hpf) /HPF (0-Trace); Urine Squamous Epithelial Cell Present /HPF (Absent); Urine White Blood Cell 3+(>20/hpf) /HPF (0-Trace)
[2023-12-18] MEDS: Al Hydrox/Mg Hydrox/Simet LIQ 30 ML UDC PO ONE (21:32)
[2023-12-18] MEDS: Ondansetron ODT 4 mg TAB 4 MG TAB PO ONE (21:32)
[2023-12-18 22:30] LABS: Urine Benzodiazepine Screen None Detected (None Detect); Urine Cannabinoids Screen None Detected (None Detect); Urine Opiates Screen None Detected (None Detect)
[2023-12-18 22:48] LABS: Acetaminophen < 15 mcg/mL; Alcohol, S < 13 mg/dL (<13); Salicylate < 2.50 mg/dL (<30)
[2023-12-18 23:03] LABS: TSH Ultra Thyroid Stim Horm 1.64 mcIU/mL (0.34-5.60)
[2023-12-18] MEDS: Sulfamethox/Trimethoprim DS TAB 800/160 mg PO ONE (23:35)
[2023-12-19] MEDS: Al Hydrox/Mg Hydrox/Simet LIQ 30 ML UDC PO PRN (01:19)
[2023-12-19] MEDS: Vitamin THERAPEUTIC TAB PO SCH (07:48)
[2023-12-19] MEDS: Sulfamethox/Trimethoprim DS TAB 800/160 mg PO SCH (07:48)
[2023-12-19] MEDS: Gemfibrozil 600 mg PO SCH (15:38)
[2023-12-19] MEDS: Polyethylene Glycol 3350 17 GM PACKET PO PRN (15:58)
[2023-12-20] MEDS: Albuterol HFA INHALER 8 gm MDI INH PRN (07:33)
[2023-12-20] MEDS: DULoxetine DR 60 mg CAP PO SCH (09:12)
[2023-12-21 08:42] LABS: HDL Cholesterol 19.4 mg/dL
[2023-12-21] MEDS: Magnesium CITRATE LIQ 300 ML BTL PO ONE (17:38)
[2023-12-22 08:07] VITALS: BP 118/50
== END 2023-12-22 10:44 | disposition home or self-care (01) | DRG 882 ==
LOC: ED 16:48 → BSU 12-19 00:32
PROVIDERS: ADMIT Psychiatry & Neurology Addiction Psychiatry; ATTEND Psychiatry & Neurology Psychiatry